=== PATIENT | female | born 1945 | race Caucasian/White ===

== ENCOUNTER 2023-12-08 22:16 | Inpatient (IN) | payer MEDICARE, SELFPAY ==
[2023-12-08] VITALS (7 sets, daily range): BP systolic 90–134; BP diastolic 30–75; BMI 22.1; BMI 22.9
[2023-12-08 16:12] LABS: % Basophils 1.3 % (0-2); % Eosinophils 7.2 % (0-6); % Immature Granulocytes 0.5 % (0-0.5); % Lymphocytes 29.4 % (20.5-51.1); % Monocytes 9.1 % (1.7-9.3); % Neutrophils 52.5 % (42.2-75.2); Absolute Basophils 0.1 10^3/uL (0-0.2); Absolute Eosinophils 0.7 10^3/uL (0-0.7); Absolute Immature Granulocytes 0.1 10^3/uL (0-0.05); Absolute Lymphocytes 2.8 10^3/uL (1.2-3.4); Absolute Monocytes 0.9 10^3/uL (0.1-0.6); Hematocrit 28.4 % (37.0-47.0); Hemoglobin 9.2 g/dL (12.0-16.0); Mean Corp Hgb Conc. 32.4 g/dL (33.0-37.0); Mean Corpuscular Hgb 28.5 pg (27.0-31.0); Mean Corpuscular Volume 87.9 fL (81.0-99.0); Mean Platelet Volume 10.9 fL (7.4-10.4); Nucleated Red Blood Cells % 0 %; Platelet Count 275 10^3/uL (130-400); Red Blood Cell Count 3.23 10^6/uL (4.20-5.40); White Blood Cell Count 9.4 10^3/uL (4.8-10.8)
[2023-12-08 16:26] LABS: ALT (SGPT) 14 U/L (0-35); AST (SGOT) 19 U/L (14-36); Albumin 3.9 g/dl (3.5-5.0); Alkaline Phosphatase 81 U/L (38-126); Blood Urea Nitrogen 72 mg/dl (7-17); Calcium 10.4 mg/dl (8.4-10.2); Carbon Dioxide 20 mmol/L (22-30); Chloride 107 mmol/L (98-107); Estimated Creatinine Clearance 18 ml/min; Glucose 250 mg/dl (70-99); Potassium 4.8 mmol/L (3.5-5.1); Sodium 139 mmol/L (135-145); Total Bilirubin 0.3 mg/dl (0.2-1.3); Total Protein 6.7 g/dl (6.3-8.2); eGFR 25.41
[2023-12-08 21:00] LABS: Urine Albumin 1+ (Neg - Trace); Urine Bilirubin Negative (Negative); Urine Character Very Cloudy (Clear); Urine Color Yellow; Urine Glucose Negative (Negative); Urine Ketone Negative (Negative); Urine Leukocyte 2+ (Negative); Urine Nitrite Positive (Negative); Urine Occult Blood 2+ (Negative); Urine Urobilinogen Negative (Neg - 1+)
[2023-12-08 21:06] LABS: Urine Bacteria Many (Negative); Urine Red Blood Cell 0-2 /HPF (0-2); Urine White Cell 30-40 /HPF (0-5)
--- NOTE | 2023-12-08 21:22 | ED.GENMED ---
History of Present Illness
General
Chief Complaint: Abnormal Lab Value
Time Seen by Provider: 12/08/23 18:16
Travel History
Have you had any contact with someone who has COVID-19?: No
Do you have any symptoms of coronavirus? Fever > 100 degrees, chills, cough, shortness of breath, sore throat, loss of taste or smell, muscle aches, or headache?: No
History of Present Illness
History of Present Illness:
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 Patient denies fever, chills, abdominal pain, dysuria, or hematuria. Patient states that all of her specialists are at [place].
Phy Exam
Physical Exam
Physical Exam:
General: Alert, no acute distress
Head: NCAT
Eyes: clear conjunctiva
Neck: supple
Cardiac: regular rate and rhythm, no murmur
Lungs: clear to auscultation bilaterally. No wheezes, rales, or rhonchi. Speaking full unlabored sentences. No respiratory distress.
Abdomen: soft, nondistended nontender. No rebound or guarding.
MSK: no lower extremity edema bilaterally. No deformity
Skin: warm, dry
Neuro: Alert no focal deficits
Course
Orders/Labs/Results
Orders:
Orders
12/08/23 15:57
Complete Blood Count/With Diff Urgent
Comprehensive Metabolic Panel Urgent
12/08/23 18:38
US Renal With Bladder Urgent
Comment:
Reason For Exam: ar
12/08/23 20:53
UA Reflex to Culture [Urinalysis Reflex To Culture] Urgent
Date Specimen was Collected: 12/08/23
Time Specimen was Collected: 20:33
Urine Microscopic Reflex Cult Urgent
Urine Culture Urgent
CHIDI Source: U
Specimen Description:
Date Specimen was Collected: 12/08/23
Time Specimen was Collected: 20:33
12/08/23 21:22
Ertapenem [Invanz] 500 mg 0.9% Sodium Chloride [Nss] 50 ml IV NOW
Abnormal Lab Results
12/08/23 12/08/23
15:57 20:53
RBC 3.23 L 10^6/uL
(4.20-5.40)
Hgb 9.2 L g/dL
(12.0-16.0)
Hct 28.4 L %
(37.0-47.0)
MCHC 32.4 L g/dL
(33.0-37.0)
RDW 16.0 H %
(11.5-14.5)
MPV 10.9 H fL
(7.4-10.4)
Abs Immat Gran (auto) 0.1 H 10^3/uL
(0-0.05)
Absolute Monos (auto) 0.9 H 10^3/uL
(0.1-0.6)
Eosinophils % 7.2 H %
(0-6)
Carbon Dioxide 20 L mmol/L
(22-30)
BUN 72 H mg/dl
(7-17)
Creatinine 2.0 H mg/dL
(0.6-1.0)
Glucose 250 H mg/dl
(70-99)
Calcium 10.4 H mg/dl
(8.4-10.2)
Ur Occult Blood Reflex 2+ A
(Negative)
Urine Nitrite (Reflex) Positive A
(Negative)
Leukocyte Esterase Rfl 2+ A
(Negative)
Urine WBC (Reflex) 30-40 A /HPF
(0-5)
Urine Bacteria (Reflex) Many A
(Negative)
Urine Albumin (Reflex) 1+ A
(Neg - Trace)
12/08/23 15:57
12/08/23 15:57
Vital Signs
Initial and Last Documented VS:
Initial Vital Signs
Temp Pulse Resp BP Pulse Ox
98.2 F 65 16 96/44 98
12/08/23 15:45 12/08/23 15:45 12/08/23 15:45 12/08/23 15:45 12/08/23 15:45
Last Documented Vital Signs
Temp Pulse Resp BP Pulse Ox
98.2 F 76 20 104/51 94
12/08/23 15:45 12/08/23 21:00 12/08/23 21:00 12/08/23 21:00 12/08/23 21:00
Comment
Comment:
Patient presents to the Emergency Department with ___AKI
Number and Complexity of Problems Addressed at the Encounter
� Chronic conditions affecting care:
� Acute Exacerbation and/or Progression of Chronic Illness:
� Differential Diagnosis includes: UTI, dehydration, CKD
Amount and/or Complexity of Data to be Reviewed and Analyzed
� I performed an independent evaluation of and my interpretation is:
EKG:
CT:
Xrays:
Laboratory Studies: UA consistent with UTI. Creatinine 2, baseline 1.1. Electrolytes within normal limits.
Other:
� Review of other/old records reveals: Patient was admitted in May 2023 for AR was found to have a urinary tract infection that grew out ESBL Klebsiella. Patient has multiple allergies. Patient was seen by infectious disease at that time and
treated with ertapenem.
� Clinical information was obtained by an independent historian:
� Prescriptions/Medications Considered but not given:
� Further testing considered but not performed:
Risk of Complications and/or Morbidity or Mortality of Patient Management
� Social Determinants of health affecting care:
� Discussion with other providers (PCP, Hospitalists, Consultants, etc):
� Escalation of care including admission/observation vs risk of discharge considered: 78-year-old female presenting with abnormal labs. Workup shows UTI and AR. Due to history of ESBL and multiple allergies, ordered ertapenem which is been
sensitive in the past. Discussed with hospitalist who accepts for admission
*Critical Care Note
Total Time (30-74mins, 75-104mins- exclusive of procedures): Not Applicable
ED Attending Note
-
Portions of this chart may have been created with voice recognition software.� Occasional wrong word or��sound alike� substitutions may have occurred due to the inherent limitations of voice recognition software.
Discharge Plan
Departure
Patient Disposition: Admit
Date of Disposition: 12/08/23
Time of Disposition: 21:29
Presentation/result/management discussed w/ accepting MD/DO: Hospitalist
Discharge Problem:
Acute UTI, AR (acute kidney injury)
Prescriptions:
No Action
atorvastatin [Lipitor] 40 mg Tablet
40 mg PO DAILY
clopidogrel [Plavix] 75 mg Tablet
75 mg PO DAILY
divalproex 500 mg Tablet,Delayed Release (Dr/Ec)
500 mg PO QPM
aspirin 81 mg Tablet,Delayed Release (Dr/Ec)
81 mg PO DAILY
carvedilol [Coreg] 3.125 mg Tablet
3.125 mg PO DAILY
metformin 1,000 mg Tablet
1,000 mg PO BID
vitamin B complex Tablet
1 tab PO DAILY
folic acid 1 mg Tablet
1 mg PO HS
mirtazapine 15 mg Tablet
15 mg PO HS
levothyroxine [Synthroid] 112 mcg Tablet
112 mcg PO DAILY
duloxetine [Cymbalta] 60 mg Capsule,Delayed Release(Dr/Ec)
60 mg PO DAILY
magnesium oxide 400 mg magnesium Tablet
400 mg PO DAILY
nifedipine 30 mg Tablet Extended Release
30 mg PO DAILY Qty: 30 0RF
tramadol 50 mg tablet
50 mg PO BID PRN (Reason: moderate pain)
Patient Comments:
12/08/2023: last filled 12/03/23, 14 tabs for 7 days from [facility]
tolterodine 2 mg tablet
2 mg PO HS
lisinopril 20 mg Tablet
20 mg PO DAILY
furosemide 20 mg Tablet
20 mg PO DAILY
Referrals:
Mitchell Hahn MD [Primary Care Provider] -
Interventions
Interventions:
*Risk Screen - Suicide Last Done: 12/08/23 15:45
*General Assessment Last Done: 12/08/23 18:36
*Neglect/Abuse Screening Last Done: 12/08/23 15:45
ED- Fall Risk Assessment Last Done: 12/08/23 15:45
*ED COVID-19 Vaccine History Last Done: 12/08/23 15:45
Discharge Date and Time
Print Language: CITIZEN OF [place]
--- NOTE | 2023-12-08 22:02 | HPS.HSE ---
Family Physician
-
Family Physician: Mitchell Hahn
Chief Complaint
-
abnormal labs
History of Present Illness
78-year-old female past medical history of CAD with stents, left bundle branch block, paroxysmal atrial fibrillation, CVA, trigeminal neuralgia, sleep apnea, hypertension, hypothyroidism, hyperlipidemia, type 2 diabetes, depression, ESBL UTI, left
shoulder replacement complicated by septic shoulder, subdural hematoma, overactive bladder, C. difficile colitis, chronic pain/fibromyalgia, restless leg syndrome, presenting for abnormal lab work.
Patient started seeing a nephrology at [facility] for the first time last week for CKD. During that visit he discontinued for nephrotoxic medications including Lasix, lisinopril and metformin. He ordered lab work the results which came back which
supposedly showed worsening in the kidney function from lab work from a week prior and patient was told to come to the emergency room. Denies any new medications recently.
Patient also had urinalysis performed as outpatient which she periodically gets done given her history of frequent UTIs. She is urinating normally. She denies any urinary symptoms worse than baseline although she does have overactive bladder which
is stable. She denies any fevers or chills or abdominal pain or nausea or vomiting or confusion. Denies any chest pain or shortness of breath. She has lost 100 pounds in the past few years which is intentional. Denies any lower extreme edema.
Patient is interesting in transitioning care from [facility] to [facility].
Medical History
Past Medical History
Past Medical History: Reports Other (CAD with stents, left bundle branch block, paroxysmal atrial fibrillation, CVA, trigeminal neuralgia, sleep apnea, hypertension, hypothyroidism, hyperlipidemia, type 2 diabetes, depression, ESBL UTI, left
shoulder replacement complicated by septic shoulder, subdural hematoma, overactive bladder, C. )
Past Surgical History: Reports None
Social History
Tobacco: Non-smoker
Alcohol: None
Drug: None
Family History
Family History: Not pertinent
Allergies / Home Medications
Allergies reflects when Allergies were last updated in [employer].
Home Medications with original date entered in [employer]
Allergy/Medication List:
Allergies
Allergy/AdvReac Type Severity Reaction Status Date / Time
cephalexin Allergy Unknown Verified 12/08/23 15:48
ciprofloxacin Allergy Hives Verified 12/08/23 15:48
formaldehyde Allergy Shortness Verified 12/08/23 15:48
of Breath
Iodinated Contrast Media Allergy Hives Verified 12/08/23 15:48
metoprolol Allergy Itching Verified 12/08/23 15:48
Penicillins Allergy Unknown Verified 12/08/23 15:48
piperacillin [From Zosyn] Allergy Unknown Verified 12/08/23 15:48
pregabalin [From Lyrica] Allergy Hives Verified 12/08/23 15:48
shellfish derived Allergy Unknown Verified 12/08/23 15:48
[id number]-[id number] Reductase Allergy Unknown Verified 12/08/23 15:48
Inhibitor
Sulfa (Sulfonamide Allergy Unknown Verified 12/08/23 15:48
Antibiotics)
tazobactam [From Zosyn] Allergy Unknown Verified 12/08/23 15:48
vancomycin Allergy Rash Verified 12/08/23 15:48
antibiotics Allergy Unknown Uncoded 12/08/23 15:48
Home Medications
aspirin 81 mg tablet,delayed release 81 mg PO DAILY Blood Clot Prevention/Tx 05/17/23
atorvastatin 40 mg tablet (Lipitor) 40 mg PO DAILY High Cholesterol 05/17/23
carvedilol 3.125 mg tablet (Coreg) 3.125 mg PO DAILY Heart Failure 05/17/23
clopidogrel 75 mg tablet (Plavix) 75 mg PO DAILY Blood Clot Prevention/Tx 05/17/23
divalproex 500 mg tablet,delayed release 500 mg PO QPM Neurological Condition 05/17/23
duloxetine 60 mg capsule,delayed release (Cymbalta) 60 mg PO DAILY Neurological Condition 05/17/23
folic acid 1 mg tablet 1 mg PO HS Supplement 05/17/23
levothyroxine 112 mcg tablet (Synthroid) 112 mcg PO DAILY Thyroid 05/17/23
magnesium oxide 400 mg PO DAILY Supplement 05/17/23
metformin 1,000 mg tablet 1,000 mg PO BID Diabetes 05/17/23
mirtazapine 15 mg tablet 15 mg PO HS Mental Health/Anxiety 05/17/23
vitamin B complex 1 tab PO DAILY Supplement 05/17/23
nifedipine 30 mg tablet,extended release 30 mg PO DAILY Blood pressure #30 tabs 05/22/23
furosemide 20 mg tablet 20 mg PO DAILY 12/08/23
lisinopril 20 mg tablet 20 mg PO DAILY 12/08/23
tolterodine 2 mg tablet 2 mg PO HS 12/08/23
tramadol 50 mg tablet 50 mg PO BID PRN moderate pain 12/08/23
Review of Systems
-
History Source: Patient
A 12 point ROS was completed and negative except as noted: Yes
Constitutional: Reports No Symptoms
EENT: Reports No Symptoms
Respiratory: Reports No Symptoms
Cardiac: Reports No Symptoms
Abdomen/GI: Reports No Symptoms
: Reports No Symptoms
Musculoskeletal: Reports No Symptoms
Skin: Reports No Symptoms
Neurological: Reports No Symptoms
Endocrine: Reports No Symptoms
Hematologic/Lymphatic: Reports No Symptoms
Psych: Reports No Symptoms
Physical Exam
Vital Signs
Vital Signs
Temp Pulse Resp BP Pulse Ox
98.2 F 76 25 104/51 96
12/08/23 15:45 12/08/23 21:30 12/08/23 21:30 12/08/23 21:00 12/08/23 21:30
Physical Exam
General: Well Developed, Well Nourished and No Apparent Distress
HEENT: NormoCephalic, Moist mucous membranes and Atraumatic
Respiratory: Clear
Cardiac: S1/S2 and Regular Rhythm; No Murmur or Rub
GI: Soft, Non Tender, Non Distended and Normal Bowel Sounds; No Organomegaly
Rectal: Deferred by Provider
Musculoskeletal: No Clubbing, No Cyanosis and No Edema
Skin: No Rash
Neuro: Nonfocal/grossly intact
Laboratory Results
-
12/08/23 15:57
12/08/23 15:57
Laboratory Results
Total Bilirubin 0.3 mg/dl (0.2-1.3) 12/08/23 15:57
AST 19 U/L (14-36) 12/08/23 15:57
ALT 14 U/L (0-35) 12/08/23 15:57
Alkaline Phosphatase 81 U/L (38-126) 12/08/23 15:57
Data Reviewed
-
Lab Data: Labs Reviewed by me
Old Records: Reviewed
Impression/Plan
-
IMPRESSION:
PLAN:
#AR on CKD 3
-Elevation of BUN suggesting prerenal etiology, although history does not suggest prerenal etiology
-Renal ultrasound shows no evidence of renal calculus, hydronephrosis, there is under distended urinary bladder low-level echoes which is nonspecific
-Urinalysis showing albuminuria
-Continue to hold Lasix, lisinopril
-IV fluids
-Check urine protein to creatinine ratio
-Obtain records from [facility] nephrology
-Nephrology consultation if renal function does not improve with fluids
# Asymptomatic urinary tract infection
#History of ESBL Klebsiella UTI
-UA showing very cloudy urine, positive nitrates, 1+ leukocyte esterase, 30-40 WBC
-Ertapenem started
CAD status post stents
-Continue aspirin, Plavix
-Continue Coreg
Paroxysmal atrial fibrillation as per notes
-Not on anticoagulation
-Follows with cardiology diabetes
Left bundle branch block
Hypothyroidism
-Continue levothyroxine
Hyperlipidemia
-Continue statin
Type 2 diabetes
-Hold metformin
Essential hypertension
-Continue nifedipine
Sleep apnea
-Not on CPAP
Multiple left shoulder surgeries for septic left shoulder hardware removal
History of subdural hematoma
Trigeminal neuralgia
-Continue Depakote
History of CVA
Overactive bladder
-Continue tolterodine
History of C. difficile colitis
Chronic pain/fibromyalgia/depression
-Continue duloxetine, mirtazapine
-Continue tramadol
Restless leg syndrome
Full code
DVT prophylaxis�heparin
Regular diet
[2023-12-08] MEDS: INVANZ 55 MG IV (23:01)
--- NOTE | 2023-12-09 01:03 | W.PN.UPDATE ---
Update Note
Progress Note Update
Creatinine clearance 18, Ertapenem dose changed per Pharmacy recommendation.
[2023-12-09] MEDS: DETROL 2 MG PO ×2 (01:20→22:00)
[2023-12-09] MEDS: REMERON 15 MG PO ×2 (01:20→22:00)
[2023-12-09] MEDS: NSS 1000 IV ×3 (01:20→22:10)
[2023-12-09] MEDS: FOLVITE 1 MG PO ×2 (01:20→22:02)
[2023-12-09 04:12] LABS: Glucose - Point of Care 245 mg/dl (70-99)
[2023-12-09 04:40] VITALS: BMI 22.9
[2023-12-09] MEDS: SYNTHROID 112 MCG PO (06:15)
[2023-12-09 06:23] LABS: % Eosinophils 6.7 % (0-6); % Immature Granulocytes 0.3 % (0-0.5); % Lymphocytes 25.5 % (20.5-51.1); % Monocytes 10.8 % (1.7-9.3); % Neutrophils 55.7 % (42.2-75.2); Absolute Basophils 0.1 10^3/uL (0-0.2); Absolute Eosinophils 0.6 10^3/uL (0-0.7); Absolute Lymphocytes 2.3 10^3/uL (1.2-3.4); Absolute Neutrophils 5.1 10^3/uL (1.4-6.5); Hematocrit 28.3 % (37.0-47.0); Hemoglobin 8.9 g/dL (12.0-16.0); Mean Corp Hgb Conc. 31.4 g/dL (33.0-37.0); Mean Corpuscular Hgb 27.8 pg (27.0-31.0); Mean Corpuscular Volume 88.4 fL (81.0-99.0); Mean Platelet Volume 11.6 fL (7.4-10.4); Nucleated Red Blood Cells % 0 %; Platelet Count 238 10^3/uL (130-400); Red Cell Dist. Width 15.8 % (11.5-14.5); White Blood Cell Count 9.1 10^3/uL (4.8-10.8)
[2023-12-09 06:57] LABS: ALT (SGPT) 14 U/L (0-35); AST (SGOT) 19 U/L (14-36); Albumin 3.2 g/dl (3.5-5.0); Alkaline Phosphatase 89 U/L (38-126); Blood Urea Nitrogen 80 mg/dl (7-17); Calcium 9.4 mg/dl (8.4-10.2); Carbon Dioxide 20 mmol/L (22-30); Chloride 110 mmol/L (98-107); Estimated Creatinine Clearance 21 ml/min; Glucose 224 mg/dl (70-99); Potassium 4.4 mmol/L (3.5-5.1); Sodium 137 mmol/L (135-145); Total Bilirubin 0.2 mg/dl (0.2-1.3); Total Protein 5.9 g/dl (6.3-8.2); eGFR 30.89
[2023-12-09 07:00] VITALS: BP 123/69
[2023-12-09 07:30] LABS: Hepatitis C Antibody Negative (Negative)
[2023-12-09 08:38] LABS: Glucose - Point of Care 277 mg/dl (70-99)
[2023-12-09] MEDS: NOVOLOG FLEXPEN-LOW RESISTANCE 3 UNITS SC ×2 (09:07→12:41)
[2023-12-09] MEDS: MAGNESIUM OXIDE 500 MG PO (09:08)
[2023-12-09] MEDS: ASPIR LOW (ENTERIC COATED) 81 MG PO (09:08)
[2023-12-09] MEDS: PROCARDIA XL (EXTENDED RELEASE) 30 MG PO (09:08)
[2023-12-09] MEDS: LIPITOR 40 MG PO (09:08)
[2023-12-09] MEDS: CYMBALTA DELAYED RELEASE 60 MG PO (09:09)
[2023-12-09] MEDS: B COMPLEX w/VITAMIN C 1 CAPLET PO (09:09)
[2023-12-09] MEDS: COREG 3.125 MG PO (09:09)
[2023-12-09] MEDS: PLAVIX 75 MG PO (09:09)
[2023-12-09] MEDS: HEPARIN 5000 UNITS SC ×2 (09:10→22:02)
[2023-12-09 09:15] LABS: Glycohemoglobin (HgbA1c) 7.4 % (4.0-5.6)
[2023-12-09 12:18] LABS: Glucose - Point of Care 297 mg/dl (70-99)
--- NOTE | 2023-12-09 13:06 | W.PN.HOSP.TC ---
Today's Communication/Plan
-
continue IVF
continue current abx pending C&S
nephrology consult
Assessment / Plan
Assessment / Plan
#AR on CKD 3
-Elevation of BUN suggesting prerenal etiology, although history does not suggest prerenal etiology
BUN/Creat: 72/2.0-->80/1.7
-Renal ultrasound shows no evidence of renal calculus, hydronephrosis, there is under distended urinary bladder low-level echoes which is nonspecific
-Urinalysis showing albuminuria
-Continue to hold Lasix, lisinopril
-IV fluids to continue
-Check urine protein to creatinine ratio
-Obtain records from [facility] neph[facility]
-Nephrology consultation, pt states wishes to transfer care to nephrology from [facility]
# Asymptomatic urinary tract infection
#History of ESBL Klebsiella UTI
-UA showing very cloudy urine, positive nitrates, 1+ leukocyte esterase, 30-40 WBC
Ur cx pending
-Ertapenem started
CAD status post stents
-Continue aspirin, Plavix
-Continue Coreg
Paroxysmal atrial fibrillation as per notes
-Not on anticoagulation
-Follows with cardiology diabetes
Left bundle branch block
Hypothyroidism
-Continue levothyroxine
Hyperlipidemia
-Continue statin
Type 2 diabetes
-Hold metformin
Essential hypertension
-Continue nifedipine
Sleep apnea
-Not on CPAP
Multiple left shoulder surgeries for septic left shoulder hardware removal
History of subdural hematoma
Trigeminal neuralgia
-Continue Depakote
History of CVA
Overactive bladder
-Continue tolterodine
History of C. difficile colitis
Chronic pain/fibromyalgia/depression
-Continue duloxetine, mirtazapine
-Continue tramadol
Restless leg syndrome
Full code
DVT prophylaxis�heparin
Regular diet
Anticipated Discharge: > 48 hours
Subjective/Interval History
-
Date of Service: December 09, 2023
Awake, alert, conversant
Objective Data
-
Labs:
Laboratory Results
12/09/23
06:00
WBC 9.1
Hgb 8.9 L
Hct 28.3 L
Plt Count 238
Sodium 137
Potassium 4.4
Chloride 110 H
Carbon Dioxide 20 L
BUN 80 H
Creatinine 1.7 H
Glucose 224 H
Calcium 9.4
Total Bilirubin 0.2
AST 19
ALT 14
Alkaline Phosphatase 89
Vital Signs:
Vital Signs
Temp Pulse Resp BP Pulse Ox
97.5 F 76 17 123/69 98
12/09/23 07:00 12/09/23 07:00 12/09/23 07:00 12/09/23 07:00 12/09/23 07:00
Review of Systems
-
History Source: Patient and Coordinated Provider
Constitutional: Denies Fever
EENT: Denies No Symptoms Reported
Respiratory: Denies No Symptoms or Trouble Breathing
Cardiac: Reports No Symptoms
Abdomen/GI: Reports No Symptoms
Musculoskeletal: Reports No Symptoms
Physical Exam
-
General: Well Developed, Well Nourished, No Apparent Distress and Appears Chronically Ill
HEENT: Normocephalic, Atraumatic and Moist Mucous Membranes
Respiratory: Clear to Auscultation; Negative Wheezes, Rales or Rhonchi
Cardiac: Regular Rhythm and S1/S2
GI: Soft, Nontender and Nondistended
Musculoskeletal: No Clubbing, No Cyanosis and No Edema
Skin: Warm and Dry
--- NOTE | 2023-12-09 13:12 | W.CON.NEPH ---
Addendum entered and electronically signed by Ren Elias DO 12/09/23 13:57:
Narrow anion gap metabolic acidosis:
Check SPEP in setting of CKD anemia abnormal GFR
Will provide sodium bicarbonate tablets if exacerbates
Original Note:
Consultation
-
Date/Time Consultation Requested: 12/09/2023 1:00
Date/Time Consultation Performed: 12/09/2023 115 PM
Requesting Provider: Jose Manuel
Performing Provider: Dr. Elias
Reason for Consultation: AR
Medical History
-
Chief Complaint: Acute kidney and
History of Present Illness:
The patient is a 78-year-old female with a past medical history of CKD as noted by past creatinine level of 1.1 as of May 2023. She has a history of hypertension and is maintained on the combination of carvedilol lisinopril and nifedipine. She
has a past medical history of CAD with stents, left bundle branch block, paroxysmal atrial fibrillation, CVA, trigeminal neuralgia, sleep apnea, hypertension, hypothyroidism, hyperlipidemia, type 2 diabetes, depression, ESBL UTI, left shoulder
replacement complicated by septic shoulder, subdural hematoma, overactive bladder, C. difficile colitis, chronic pain/fibromyalgia, restless leg syndrome, presenting for abnormal lab work.
Patient started seeing a nephrology at [facility] for the first time last week for CKD. During that visit she discontinued medications including Lasix, lisinopril and metformin. He ordered lab work the results which came back which supposedly
showed worsening in the kidney function from lab work from a week prior and patient was told to come to the emergency room. Denies any new medications recently. Her creatinine on admission was 2 off of her previous baseline of 1.1 from May 22,
2022 and nephrology was asked to see then patient.
Patient also had urinalysis performed as outpatient which she periodically gets done given her history of frequent UTIs. She is urinating normally. She denies any urinary symptoms worse than baseline although she does have overactive bladder which
is stable. She denies any fevers or chills or abdominal pain or nausea or vomiting or confusion. Denies any chest pain or shortness of breath. She has lost 100 pounds in the past few years which is intentional. Denies any lower extreme edema.
Past Medical History
(CAD with stents, left bundle branch block, paroxysmal atrial fibrillation, CVA, trigeminal neuralgia, sleep apnea, hypertension, hypothyroidism, hyperlipidemia, type 2 diabetes, depression, ESBL UTI, left shoulder replacement complicated by septic
shoulder, subdural hematoma, overactive bladder, C. )
Social History
Tobacco: Former Smoker
Alcohol: None
Family History
no ckd
Allergies / Home Medications
Allergy/AdvReac Type Severity Reaction Status Date / Time
cephalexin Allergy Unknown Verified 12/08/23 15:48
ciprofloxacin Allergy Hives Verified 12/08/23 15:48
formaldehyde Allergy Shortness Verified 12/08/23 15:48
of Breath
Iodinated Contrast Media Allergy Hives Verified 12/08/23 15:48
metoprolol Allergy Itching Verified 12/08/23 15:48
Penicillins Allergy Unknown Verified 12/08/23 15:48
piperacillin [From Zosyn] Allergy Unknown Verified 12/08/23 15:48
pregabalin [From Lyrica] Allergy Hives Verified 12/08/23 15:48
shellfish derived Allergy Unknown Verified 12/08/23 15:48
Nwzypng-[id number]-[id number] Reductase Allergy Unknown Verified 12/08/23 15:48
Inhibitor
Sulfa (Sulfonamide Allergy Unknown Verified 12/08/23 15:48
Antibiotics)
tazobactam [From Zosyn] Allergy Unknown Verified 12/08/23 15:48
vancomycin Allergy Rash Verified 12/08/23 15:48
antibiotics Allergy Unknown Uncoded 12/08/23 15:48
�Medication �Instructions �Recorded �Confirmed �Type
aspirin 81 mg tablet,delayed 81 mg PO DAILY Blood Clot 05/17/23 12/08/23 History
release Prevention/Tx
atorvastatin 40 mg tablet (Lipitor) 40 mg PO DAILY High Cholesterol 05/17/23 12/08/23 History
carvedilol 3.125 mg tablet (Coreg) 3.125 mg PO DAILY Heart Failure 05/17/23 12/08/23 History
clopidogrel 75 mg tablet (Plavix) 75 mg PO DAILY Blood Clot 05/17/23 12/08/23 History
Prevention/Tx
divalproex 500 mg tablet,delayed 500 mg PO QPM Neurological 05/17/23 12/08/23 History
release Condition
duloxetine 60 mg capsule,delayed 60 mg PO DAILY Neurological 05/17/23 12/08/23 History
release (Cymbalta) Condition
folic acid 1 mg tablet 1 mg PO HS Supplement 05/17/23 12/08/23 History
levothyroxine 112 mcg tablet 112 mcg PO DAILY Thyroid 05/17/23 12/08/23 History
(Synthroid)
magnesium oxide 400 mg PO DAILY Supplement 05/17/23 12/08/23 History
metformin 1,000 mg tablet 1,000 mg PO BID Diabetes 05/17/23 12/08/23 History
mirtazapine 15 mg tablet 15 mg PO HS Mental Health/Anxiety 05/17/23 12/08/23 History
vitamin B complex 1 tab PO DAILY Supplement 05/17/23 12/08/23 History
nifedipine 30 mg tablet,extended 30 mg PO DAILY Blood pressure #30 05/22/23 12/08/23 Rx
release tabs
furosemide 20 mg tablet 20 mg PO DAILY 12/08/23 12/08/23 History
lisinopril 20 mg tablet 20 mg PO DAILY Blood Pressure 12/08/23 12/08/23 History
tolterodine 2 mg tablet 2 mg PO HS Urinary Issue 12/08/23 12/08/23 History
tramadol 50 mg tablet 50 mg PO BID PRN moderate pain 12/08/23 12/08/23 History
Review of Systems
-
History Source: Patient
All other systems: Negative unless noted
Constitutional: Weight Loss (100 pounds over past year on purpose)
EENT: Other (Unilateral blindness from diabetic retinopathy)
Respiratory: No Symptoms
Cardiac: No Symptoms
Abdomen/GI: No Symptoms
: Frequency, Difficulty Voiding, Urgency and Other (Chronic bladder dysfunction)
Musculoskeletal: Edema (Right lower extremity)
Skin: Other (Ecchymosis along upper extremity)
Neurological: No Symptoms
Endocrine: No Symptoms
Hematologic/Lymphatic: Bruising
Physical Exam
Vital Signs
Vital Signs
Temp Pulse Resp BP Pulse Ox
97.5 F 76 17 123/69 98
12/09/23 07:00 12/09/23 07:00 12/09/23 07:00 12/09/23 07:00 12/09/23 07:00
Lab Results
12/09/23 06:00
12/09/23 06:00
WBC 9.1 10^3/uL (4.8-10.8) 12/09/23 06:00
RBC 3.20 10^6/uL (4.20-5.40) L 12/09/23 06:00
Hgb 8.9 g/dL (12.0-16.0) L 12/09/23 06:00
Hct 28.3 % (37.0-47.0) L 12/09/23 06:00
Plt Count 238 10^3/uL (130-400) 12/09/23 06:00
Sodium 137 mmol/L (135-145) 12/09/23 06:00
Potassium 4.4 mmol/L (3.5-5.1) 12/09/23 06:00
Chloride 110 mmol/L (98-107) H 12/09/23 06:00
Carbon Dioxide 20 mmol/L (22-30) L 12/09/23 06:00
BUN 80 mg/dl (7-17) H 12/09/23 06:00
Creatinine 1.7 mg/dL (0.6-1.0) H 12/09/23 06:00
eGFR 30.89 12/09/23 06:00
Glucose 224 mg/dl (70-99) H 12/09/23 06:00
Calcium 9.4 mg/dl (8.4-10.2) 12/09/23 06:00
Albumin 3.2 g/dl (3.5-5.0) L 12/09/23 06:00
Physical Exam
General: AOx3, Nontoxic , NAD
HEENT: PERRL, EOMI, Anicteric, Conjunctivae Clear, Ear/Nose Intact, Hearing Normal, Oropharynx Clear/Moist, Dentition Intact, Facial Symmetry, Neck Supple, Neck: Trachea Midline, No JVD and No Thyromegaly, no Bruits
Respiratory: Clear to auscultation bilaterally with normal lung exersion and decreased breathsounds to bases
Cardiac: S1/S2 and Regular Rate/Rhythm 3/6SEM
Breast: Deferred by me
Abdomen: Soft, Nontender, Nondistended, Normal Bowel Sounds and No Hepatosplenomegaly
Rectal: Deferred by Provider
Genito-urinary: No Costovertebral Tenderness
Extremities: No Clubbing, No Cyanosis and right leg + edema
Skin: No Rash or open lesions but ecchymosis on forearm
Neuro: Nonfocal/Grossly Intact, CN II-XII (Intact) and Strength (Musculoskeletal exam 5 out of 5 both upper and lower extremities)
Hematologic/Lymphatic: No Cervical Lymphadenopathy, No Submandibular Lymphadenopathy and No Supraclavicular Lymphadenopathy
Psych: Mood/afflect pleasant, Insight/judgement good and Appropriate
Vascular: plus 1 pedal and radial pulses
Data Reviewed
-
Radiology: Report Reviewed by me (Kidney ultrasound report reviewed increase echogenicity no hydronephrosis)
Labs: Labs Reviewed by me (BMP CBC and urinalysis)
Old Records: Reviewed (Reviewed creatinine from 05/22/2023 1.1)
Assessment/Plan
-
Impression:
Acute kidney injury
CKD (1.1)
History of recurrent UTI (ESBL)
Coronary artery disease with previous stenting procedure
Paroxysmal atrial fibrillation
History of CVA
Hypothyroidism
Diabetes
History of subdural hematoma
Trigeminal neuralgia
Multiple left shoulder surgeries with septic left shoulder hardware removal
Bladder dysfunction
Chronic pain/ fibromyalgia
Depressed
Restless leg syndrome
Anemia
Plan:
AR:
May have been precipitated by prerenal stimulus given hypotension on admission, follow up FeNa
Lisinopril and Lasix recently as outpatient by [facility]
Urinalysis notes 1+ albumin 2+ blood possibly consistent with ongoing diabetic nephropathy and/or UTI
Kidney ultrasound notes chronicity with increased renal echogenicity but no evidence of hydronephrosis
Creatinine improving with NSS which will be continued
Currently on ertapenem for suspected ESBL renally adjusted dosage
follow up bladder scan given history of bladder dysfunction
Anemia:
Check iron stores
Heme check stool
Check SPEP
--- NOTE | 2023-12-09 13:31 | CM ---
Met with pt and her at bedside
Pt lives with her and daughter in a 2 story home. Pt has a stair glide to access 2nd floor
Pt reports is does not ambulate well and uses wheel chair often. Min-mod assist with ADL's
DME - includes stair glide, purewick, wheel chair, cane, rolling walker, shower chair
SNF - in past has been at [facility]
HH - Has used [facility] in past
Has ride at d/c
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
Pharm - [facility]
PT/OT pending
Plan - TBD - anticipate SNF vs Home with HH
[2023-12-09 15:00] VITALS: BP 114/70
[2023-12-09 16:44] LABS: Glucose - Point of Care 206 mg/dl (70-99)
[2023-12-09] MEDS: DEPAKOTE (12 HR RELEASE) 500 MG PO (17:53)
[2023-12-09] MEDS: NOVOLOG FLEXPEN-LOW RESISTANCE 2 UNITS SC (17:54)
[2023-12-09 21:44] LABS: Glucose - Point of Care 250 mg/dl (70-99)
[2023-12-09] MEDS: INVANZ 55 MG IV (22:00)
[2023-12-09 23:34] VITALS: BP 115/61
[2023-12-10 00:12] LABS: Urine Sodium 100 mmol/L (30-90)
[2023-12-10 01:40] LABS: Urine Protein 22 mg/dl
[2023-12-10 02:35] LABS: Protein/creatinine Ratio 0.7
[2023-12-10 06:00] VITALS: BMI 23.0
[2023-12-10 06:11] LABS: Lactic Acid 0.7 mmol/L (0.7-2.0)
[2023-12-10 06:24] LABS: % Basophils 1.2 % (0-2); % Eosinophils 7.2 % (0-6); % Immature Granulocytes 0.4 % (0-0.5); % Monocytes 9.5 % (1.7-9.3); % Neutrophils 49.7 % (42.2-75.2); Absolute Basophils 0.1 10^3/uL (0-0.2); Absolute Eosinophils 0.5 10^3/uL (0-0.7); Absolute Lymphocytes 2.4 10^3/uL (1.2-3.4); Absolute Monocytes 0.7 10^3/uL (0.1-0.6); Absolute Neutrophils 3.7 10^3/uL (1.4-6.5); Hematocrit 26.7 % (37.0-47.0); Hemoglobin 8.6 g/dL (12.0-16.0); Mean Corp Hgb Conc. 32.2 g/dL (33.0-37.0); Mean Corpuscular Hgb 28.1 pg (27.0-31.0); Mean Corpuscular Volume 87.3 fL (81.0-99.0); Mean Platelet Volume 11.1 fL (7.4-10.4); Nucleated Red Blood Cells % 0 %; Platelet Count 223 10^3/uL (130-400); Red Blood Cell Count 3.06 10^6/uL (4.20-5.40); White Blood Cell Count 7.5 10^3/uL (4.8-10.8)
[2023-12-10] MEDS: SYNTHROID 112 MCG PO (06:38)
[2023-12-10 07:00] VITALS: BP 133/56
[2023-12-10 07:16] LABS: Blood Urea Nitrogen 56 mg/dl (7-17); Calcium 8.8 mg/dl (8.4-10.2); Carbon Dioxide 21 mmol/L (22-30); Chloride 115 mmol/L (98-107); Estimated Creatinine Clearance 30 ml/min; Glucose 167 mg/dl (70-99); Iron 30 ug/dl (37-170); Potassium 4.8 mmol/L (3.5-5.1); Sodium 139 mmol/L (135-145); eGFR 46.91
[2023-12-10 07:24] LABS: Percent Saturation 11 % (20-50); Total Iron Binding Capacity 271 ug/dl (265-497)
[2023-12-10] MEDS: NSS 1000 IV ×2 (07:32→23:01)
[2023-12-10 07:39] LABS: Cortisol, Random 10.9 ug/dl
[2023-12-10 07:43] LABS: Ferritin 10.2 ng/ml (11.1-264.0)
[2023-12-10 08:31] LABS: Glucose - Point of Care 183 mg/dl (70-99)
[2023-12-10] MEDS: NOVOLOG FLEXPEN-LOW RESISTANCE 1 UNITS SC (08:32)
[2023-12-10] MEDS: B COMPLEX w/VITAMIN C 1 CAPLET PO (08:32)
[2023-12-10] MEDS: LIPITOR 40 MG PO (08:33)
[2023-12-10] MEDS: CYMBALTA DELAYED RELEASE 60 MG PO (08:33)
[2023-12-10] MEDS: PLAVIX 75 MG PO (08:33)
[2023-12-10] MEDS: ASPIR LOW (ENTERIC COATED) 81 MG PO (08:33)
[2023-12-10] MEDS: HEPARIN 5000 UNITS SC ×2 (08:33→23:05)
[2023-12-10] MEDS: MAGNESIUM OXIDE 500 MG PO (08:33)
[2023-12-10] MEDS: PROCARDIA XL (EXTENDED RELEASE) 30 MG PO (08:54)
[2023-12-10] MEDS: COREG 3.125 MG PO (08:55)
[2023-12-10 12:23] LABS: Glucose - Point of Care 243 mg/dl (70-99)
[2023-12-10] MEDS: NOVOLOG FLEXPEN-LOW RESISTANCE 2 UNITS SC (12:28)
--- NOTE | 2023-12-10 12:36 | W.PN.NEPH.PH ---
Today's Communication / Plan
-
wean off IVF
Assessment/Plan
-
Impression:
Acute kidney injury
CKD (1.1)
History of recurrent UTI (ESBL)
Coronary artery disease with previous stenting procedure
Paroxysmal atrial fibrillation
History of CVA
Hypothyroidism
Diabetes
History of subdural hematoma
Trigeminal neuralgia
Multiple left shoulder surgeries with septic left shoulder hardware removal
Bladder dysfunction
Chronic pain/ fibromyalgia
Depressed
Restless leg syndrome
Anemia
Plan:
AR:
May have been precipitated by prerenal stimulus given hypotension on admission,U na high with IVF
Lisinopril and Lasix held recently as outpatient by [place] nephrology
Urinalysis notes 1+ albumin 2+ blood possibly consistent with ongoing diabetic nephropathy and/or UTI
Kidney ultrasound notes chronicity with increased renal echogenicity but no evidence of hydronephrosis
Creatinine improving with NSS, cr down to 1.2, we can wean off IVF as long as po intake is adequate
Currently on ertapenem for suspected ESBL renally adjusted dosage for changing GFR
follow up bladder scan given history of bladder dysfunction, uses purewick nightly at home for overactive bladder
hb low but stable at 8.6, fe def noted, ferritin low , fe sat only 11%, paraprotein w/u pending
pt would like to follow Docs at
-
-
Date of Service: December 10, 2023
CC / HPI / ROS
-
Chief Complaint:
AR
History of Present Illness:
cr better at 1.2
BP stable, no fever
hb low but stable 8.6
Review of Systems:
no cp or sob
mild burning while urinating , on purewick-non oliguric
no fever
Labs
-
Labs:
WBC 7.5 10^3/uL (4.8-10.8) 12/10/23 05:52
RBC 3.06 10^6/uL (4.20-5.40) L 12/10/23 05:52
Hgb 8.6 g/dL (12.0-16.0) L 12/10/23 05:52
Hct 26.7 % (37.0-47.0) L 12/10/23 05:52
Plt Count 223 10^3/uL (130-400) 12/10/23 05:52
Sodium 139 mmol/L (135-145) 12/10/23 05:52
Potassium 4.8 mmol/L (3.5-5.1) 12/10/23 05:52
Chloride 115 mmol/L (98-107) H 12/10/23 05:52
Carbon Dioxide 21 mmol/L (22-30) L 12/10/23 05:52
BUN 56 mg/dl (7-17) H 12/10/23 05:52
Creatinine 1.2 mg/dL (0.6-1.0) H 12/10/23 05:52
eGFR 46.91 12/10/23 05:52
Glucose 167 mg/dl (70-99) H 12/10/23 05:52
Calcium 8.8 mg/dl (8.4-10.2) 12/10/23 05:52
Albumin 3.2 g/dl (3.5-5.0) L 12/09/23 06:00
Physical Exam
-
Vital Signs:
Vital Signs
Temp Pulse Resp BP Pulse Ox
98.1 F 72 17 115/61 97
12/10/23 07:00 12/10/23 08:55 12/10/23 07:00 12/10/23 08:55 12/10/23 07:00
Cardiovascular:: Regular rate and rhythm
Respiratory:: Bilateral: CTA
Lung Excursion:: Normal
Abdomen:: Nontender and Soft
Extremity Edema:: None: Bilateral:
[place] Catheter: No
[2023-12-10] MEDS: FERRLECIT 110 MG IV (13:27)
--- NOTE | 2023-12-10 14:18 | W.PN.HOSP.TC ---
Today's Communication/Plan
-
continue current Abx
follow labs
continue IVF
Assessment / Plan
Assessment / Plan
#AR on CKD 3
-Elevation of BUN suggesting prerenal etiology, although history does not suggest prerenal etiology, significantly improved
BUN/Creat: 72/2.0-->80/1.7-->56/1.2
-Renal ultrasound shows no evidence of renal calculus, hydronephrosis, there is under distended urinary bladder low-level echoes which is nonspecific
-Urinalysis showing albuminuria
-Continue to hold Lasix, lisinopril
-IV fluids to continue
NS at 50 cc/hr
-Nephrology consultation, pt states wishes to transfer care to nephrology from [place]
reviewed with Dr. Parisi, possible AR was caused by recurrent UTI
# Asymptomatic urinary tract infection
#History of ESBL Klebsiella UTI
-UA showing very cloudy urine, positive nitrates, 1+ leukocyte esterase, 30-40 WBC
Ur cx Gm neg bacilli, C&S pending
-Ertapenem started
-Renal US: No sonographically demonstrable renal calculus. No hydronephrosis.
Underdistended urinary bladder with low-level echoes. Nonspecific. Such findings are nonspecific, and may be associated with sediment/fine particulate matter, excessive amounts of crystals, infection, or hematuria. Recommend correlation with
urinalysis.
CAD status post stents
-Continue aspirin, Plavix
-Continue Coreg
Paroxysmal atrial fibrillation as per notes
-Not on anticoagulation
-Follows with cardiology diabetes
Left bundle branch block
Hypothyroidism
-Continue levothyroxine
Hyperlipidemia
-Continue statin
Type 2 diabetes
-Hold metformin
Essential hypertension
-Continue nifedipine
Sleep apnea
-Not on CPAP
Multiple left shoulder surgeries for septic left shoulder hardware removal
History of subdural hematoma
Trigeminal neuralgia
-Continue Depakote
History of CVA
Overactive bladder
-Continue tolterodine
History of C. difficile colitis
Chronic pain/fibromyalgia/depression
-Continue duloxetine, mirtazapine
-Continue tramadol
Restless leg syndrome
reviewed with at bedside
Full code
DVT prophylaxis�heparin
Regular diet
Anticipated Discharge: 24 - 48 hours
Subjective/Interval History
-
Date of Service: December 10, 2023
Does feel somewhat better
Objective Data
-
Labs:
Laboratory Results
12/10/23
05:52
WBC 7.5
Hgb 8.6 L
Hct 26.7 L
Plt Count 223
Sodium 139
Potassium 4.8
Chloride 115 H
Carbon Dioxide 21 L
BUN 56 H
Creatinine 1.2 H
Glucose 167 H
Calcium 8.8
Vital Signs:
Vital Signs
Temp Pulse Resp BP Pulse Ox
98.1 F 72 17 115/61 97
12/10/23 07:00 12/10/23 08:55 12/10/23 07:00 12/10/23 08:55 12/10/23 07:00
I&O
12/09/23 12/10/23 12/11/23
06:59 06:59 06:59
Intake Total 580 / 580 1735 / 1735
Output Total 1130 / 1130
Balance 580 / 580 605 / 605
Review of Systems
-
History Source: Patient and Family ( at bedside)
Constitutional: Denies Fever
EENT: Reports No Symptoms Reported
Respiratory: Reports No Symptoms
Cardiac: Reports No Symptoms
Abdomen/GI: Reports No Symptoms
Physical Exam
-
General: Well Developed, Well Nourished, No Apparent Distress and Appears Chronically Ill
HEENT: Normocephalic, Atraumatic and Moist Mucous Membranes
Respiratory: Clear to Auscultation; Negative Wheezes, Rales or Rhonchi
Cardiac: Regular Rhythm and S1/S2
GI: Soft, Nontender and Nondistended
Musculoskeletal: No Clubbing, No Cyanosis and No Edema
Skin: Warm and Dry
[2023-12-10 15:00] VITALS: BP 123/48
[2023-12-10 15:31] VITALS: BMI 23.0
[2023-12-10] MEDS: NOVOLOG FLEXPEN-LOW RESISTANCE 3 UNITS SC (17:08)
[2023-12-10 17:15] LABS: Glucose - Point of Care 226 mg/dl (70-99)
[2023-12-10] MEDS: DEPAKOTE (12 HR RELEASE) 500 MG PO (17:17)
[2023-12-10 22:30] LABS: Glucose - Point of Care 194 mg/dl (70-99)
[2023-12-10 23:00] VITALS: BP 142/66
[2023-12-10] MEDS: INVANZ 55 MG IV (23:01)
[2023-12-10] MEDS: DETROL 2 MG PO (23:01)
[2023-12-10] MEDS: FOLVITE 1 MG PO (23:01)
[2023-12-10] MEDS: REMERON 15 MG PO (23:02)
[2023-12-11] MEDS: SYNTHROID 112 MCG PO (05:42)
[2023-12-11 07:00] VITALS: BP 136/56
[2023-12-11 08:07] LABS: % Basophils 1.2 % (0-2); % Immature Granulocytes 0.2 % (0-0.5); % Lymphocytes 26.3 % (20.5-51.1); % Monocytes 9.5 % (1.7-9.3); % Neutrophils 55.8 % (42.2-75.2); Absolute Basophils 0.1 10^3/uL (0-0.2); Absolute Eosinophils 0.6 10^3/uL (0-0.7); Absolute Lymphocytes 2.3 10^3/uL (1.2-3.4); Absolute Monocytes 0.8 10^3/uL (0.1-0.6); Absolute Neutrophils 4.8 10^3/uL (1.4-6.5); Hematocrit 27.4 % (37.0-47.0); Hemoglobin 8.7 g/dL (12.0-16.0); Mean Corp Hgb Conc. 31.8 g/dL (33.0-37.0); Mean Corpuscular Hgb 28.4 pg (27.0-31.0); Mean Corpuscular Volume 89.5 fL (81.0-99.0); Nucleated Red Blood Cells % 0 %; Platelet Count 224 10^3/uL (130-400); Red Blood Cell Count 3.06 10^6/uL (4.20-5.40); Red Cell Dist. Width 16.2 % (11.5-14.5); White Blood Cell Count 8.7 10^3/uL (4.8-10.8)
[2023-12-11 08:29] LABS: Glucose - Point of Care 142 mg/dl (70-99)
[2023-12-11 08:37] LABS: Blood Urea Nitrogen 44 mg/dl (7-17); Calcium 8.9 mg/dl (8.4-10.2); Carbon Dioxide 18 mmol/L (22-30); Chloride 114 mmol/L (98-107); Estimated Creatinine Clearance 36 ml/min; Glucose 164 mg/dl (70-99); Potassium 4.9 mmol/L (3.5-5.1); Sodium 138 mmol/L (135-145); eGFR 58.39
[2023-12-11] MEDS: PROCARDIA XL (EXTENDED RELEASE) 30 MG PO (08:57)
[2023-12-11] MEDS: MAGNESIUM OXIDE 500 MG PO (08:58)
[2023-12-11] MEDS: B COMPLEX w/VITAMIN C 1 CAPLET PO (08:58)
[2023-12-11] MEDS: CYMBALTA DELAYED RELEASE 60 MG PO (08:58)
[2023-12-11] MEDS: PLAVIX 75 MG PO (08:58)
[2023-12-11] MEDS: HEPARIN 5000 UNITS SC ×2 (08:59→21:24)
[2023-12-11] MEDS: LIPITOR 40 MG PO (08:59)
[2023-12-11] MEDS: NOVOLOG FLEXPEN-LOW RESISTANCE SC (08:59)
[2023-12-11] MEDS: COREG 3.125 MG PO (08:59)
[2023-12-11] MEDS: ASPIR LOW (ENTERIC COATED) 81 MG PO (08:59)
--- NOTE | 2023-12-11 12:13 | W.PN.NEPH.PH ---
Today's Communication / Plan
-
d/c IVF
Assessment/Plan
-
Impression:
Acute kidney injury
CKD (1.1)
History of recurrent UTI (ESBL)
Coronary artery disease with previous stenting procedure
Paroxysmal atrial fibrillation
History of CVA
Hypothyroidism
Diabetes
History of subdural hematoma
Trigeminal neuralgia
Multiple left shoulder surgeries with septic left shoulder hardware removal
Bladder dysfunction
Chronic pain/ fibromyalgia
Depressed
Restless leg syndrome
Anemia
Plan:
AR:
May have been precipitated by prerenal stimulus given hypotension on admission,U na high with IVF
Lisinopril and Lasix held recently as outpatient by [place] nephrology
Urinalysis notes 1+ albumin 2+ blood possibly consistent with ongoing diabetic nephropathy and/or UTI
Kidney ultrasound notes chronicity with increased renal echogenicity but no evidence of hydronephrosis
Creatinine improving with NSS, cr down to 1, we can wean off IVF as long as po intake is adequate
Currently on ertapenem for suspected ESBL renally adjusted dosage for changing GFR
follow up bladder scan given history of bladder dysfunction, uses purewick nightly at home for overactive bladder
hb low but stable at 8.6, fe def noted, ferritin low , fe sat only 11%, paraprotein w/u pending , started IV fe course
pt would like to follow Docs at
-
-
Date of Service: December 11, 2023
CC / HPI / ROS
-
Chief Complaint:
AR
History of Present Illness:
cr better at 1.
BP stable, no fever
hb low but stable 8.7
bicarb low at 18
Review of Systems:
no cp or sob
no dysuria, on purewick-non oliguric
no fever
Labs
-
Labs:
WBC 8.7 10^3/uL (4.8-10.8) 12/11/23 07:41
RBC 3.06 10^6/uL (4.20-5.40) L 12/11/23 07:41
Hgb 8.7 g/dL (12.0-16.0) L 12/11/23 07:41
Hct 27.4 % (37.0-47.0) L 12/11/23 07:41
Plt Count 224 10^3/uL (130-400) 12/11/23 07:41
Sodium 138 mmol/L (135-145) 12/11/23 07:41
Potassium 4.9 mmol/L (3.5-5.1) 12/11/23 07:41
Chloride 114 mmol/L (98-107) H 12/11/23 07:41
Carbon Dioxide 18 mmol/L (22-30) L 12/11/23 07:41
BUN 44 mg/dl (7-17) H 12/11/23 07:41
Creatinine 1.0 mg/dL (0.6-1.0) 12/11/23 07:41
eGFR 58.39 12/11/23 07:41
Glucose 164 mg/dl (70-99) H 12/11/23 07:41
Calcium 8.9 mg/dl (8.4-10.2) 12/11/23 07:41
Albumin 3.2 g/dl (3.5-5.0) L 12/09/23 06:00
Physical Exam
-
Vital Signs:
Vital Signs
Temp Pulse Resp BP Pulse Ox
98.6 F 72 15 136/56 94
12/11/23 07:00 12/11/23 07:00 12/11/23 07:00 12/11/23 07:00 12/11/23 07:00
Cardiovascular:: Regular rate and rhythm
Respiratory:: Bilateral: CTA
Lung Excursion:: Normal
Abdomen:: Nontender and Soft
Extremity Edema:: None: Bilateral:
[place] Catheter: No
[2023-12-11] MEDS: FERRLECIT 110 MG IV (14:04)
[2023-12-11] MEDS: NOVOLOG FLEXPEN-LOW RESISTANCE 2 UNITS SC (14:04)
--- NOTE | 2023-12-11 14:08 | W.PN.HOSP.TC ---
Today's Communication/Plan
-
abx adjustment per ID
Assessment / Plan
Assessment / Plan
#AR on CKD 3
-Elevation of BUN suggesting prerenal etiology, although history does not suggest prerenal etiology, significantly improved
BUN/Creat: 72/2.0-->80/1.7-->56/1.2-->44/1.0
-Urinalysis showing albuminuria
-Continue to hold Lasix, lisinopril
-IV fluids to continue
NS at 50 cc/hr
-Nephrology consultation, pt states wishes to transfer care to nephrology from [place]
reviewed with Dr. Parisi, possible AR was caused by recurrent UTI
# Asymptomatic urinary tract infection
#recurrent ESBL Klebsiella UTI
-consult placed to ID, abx as per ID
-Ertapenem started
-Renal US: No sonographically demonstrable renal calculus. No hydronephrosis.
Underdistended urinary bladder with low-level echoes. Nonspecific. Such findings are nonspecific, and may be associated with sediment/fine particulate matter, excessive amounts of crystals, infection, or hematuria. Recommend correlation with
urinalysis.\\
Pt would like to see a Urogyne on dc, will refer to Dr. Dannielle Ambriz
CAD status post stents
-Continue aspirin, Plavix
-Continue Coreg
Paroxysmal atrial fibrillation as per notes
-Not on anticoagulation
-Follows with cardiology diabetes
Left bundle branch block
Hypothyroidism
-Continue levothyroxine
Hyperlipidemia
-Continue statin
Type 2 diabetes
-Holding metformin, plan on resuming as BUN/Creat continues to improve
Essential hypertension
-Continue nifedipine
Sleep apnea
-Not on CPAP
Multiple left shoulder surgeries for septic left shoulder hardware removal
History of subdural hematoma
Trigeminal neuralgia
-Continue Depakote
History of CVA
Overactive bladder
-Continue tolterodine
History of C. difficile colitis
Chronic pain/fibromyalgia/depression
-Continue duloxetine, mirtazapine
-Continue tramadol
Restless leg syndrome
reviewed with at bedside 12/10
Full code
DVT prophylaxis�heparin
Regular diet
Anticipated Discharge: 24 - 48 hours
Subjective/Interval History
-
Date of Service: December 11, 2023
In good spirits, generally feels better
Objective Data
-
Labs:
Laboratory Results
12/11/23
07:41
WBC 8.7
Hgb 8.7 L
Hct 27.4 L
Plt Count 224
Sodium 138
Potassium 4.9
Chloride 114 H
Carbon Dioxide 18 L
BUN 44 H
Creatinine 1.0
Glucose 164 H
Calcium 8.9
Vital Signs:
Vital Signs
Temp Pulse Resp BP Pulse Ox
98.6 F 72 15 136/56 94
12/11/23 07:00 12/11/23 07:00 12/11/23 07:00 12/11/23 07:00 12/11/23 07:00
I&O
12/10/23 12/11/23 12/12/23
06:59 06:59 06:59
Intake Total 580 / 580 2760 / 2760 240 / 240
Output Total 2029 / 2029
Balance 580 / 580 730 / 730 240 / 240
Review of Systems
-
History Source: Patient and Coordinated Provider
Constitutional: Denies Fever
EENT: Reports No Symptoms Reported
Respiratory: Reports No Symptoms
Cardiac: Reports No Symptoms
Abdomen/GI: Reports No Symptoms
Physical Exam
-
General: Well Developed, Well Nourished, No Apparent Distress and Appears Chronically Ill
HEENT: Normocephalic, Atraumatic and Moist Mucous Membranes
Respiratory: Clear to Auscultation; Negative Wheezes, Rales or Rhonchi
Cardiac: Regular Rhythm and S1/S2
GI: Soft, Nontender and Nondistended
Musculoskeletal: No Clubbing, No Cyanosis and No Edema
Skin: Warm and Dry
[2023-12-11 15:00] VITALS: BP 107/40
--- NOTE | 2023-12-11 15:44 | CON.ID ---
Consultation
-
Date/Time Consultation Requested: 12/11/23 14:10
Date/Time Consultation Performed: 12/11/23 15:44
Requesting Provider: Dr Martinez
Performing Provider: Dr Elizabeth
Reason for Consultation: ESBL infection
Chief Complaint / Past History
Chief Complaint
abnormal labs
History of Present Illness
Ms Teixeira is a 78 year old female with recent history of ESBL UTI, C difficile who presented here 12/07 for AR on CKD. Reports overactive bladder without change from her baseline. No: fevers or chills or abdominal pain or nausea or vomiting or
confusion
Since arrival here afebrile, bp stable, wbc 8.7, hgb 8.7, plt 224, no left shift, cr on arrival 2.0 now 1.0, a1c 7.4, urine culture 05/31 esbl kleb, 12/07 urine culture ESBL kleb, 12/07 renal US: no definite stone or obstruction, currently on
levofloxacin which she is tolerating, qtc not yet checked this admission
Past History
Additional Past Medical History:
CAD with stents, left bundle branch block, paroxysmal atrial fibrillation, CVA, trigeminal neuralgia, sleep apnea, hypertension, hypothyroidism, hyperlipidemia, type 2 diabetes, depression, ESBL UTI, left shoulder replacement complicated by septic
shoulder, subdural hematoma, overactive bladder,
Past Surgical History: None
Allergy History:
cephalexin Allergy (Verified 12/08/23 15:48)
Unknown
ciprofloxacin Allergy (Verified 12/08/23 15:48)
Hives
formaldehyde Allergy (Verified 12/08/23 15:48)
Shortness of Breath
Iodinated Contrast Media Allergy (Verified 12/08/23 15:48)
Hives
metoprolol Allergy (Verified 12/08/23 15:48)
Itching
Penicillins Allergy (Verified 12/08/23 15:48)
Unknown
piperacillin [From Zosyn] Allergy (Verified 12/08/23 15:48)
Unknown
pregabalin [From Lyrica] Allergy (Verified 12/08/23 15:48)
Hives
shellfish derived Allergy (Verified 12/08/23 15:48)
Unknown
Ltcsawm-OWE-IbS Reductase Inhibitor Allergy (Verified 12/08/23 15:48)
Unknown
Sulfa (Sulfonamide Antibiotics) Allergy (Verified 12/08/23 15:48)
Unknown
tazobactam [From Zosyn] Allergy (Verified 12/08/23 15:48)
Unknown
vancomycin Allergy (Verified 12/08/23 15:48)
Rash
antibiotics Allergy (Uncoded 12/08/23 15:48)
Unknown
Medications Reviewed: Yes
Social History
Tobacco: Non-Smoker
Alcohol: None
Drug: None
Family History
Family History: Not Pertinent
Review of Systems
Review of Systems
General: Negative Fever or Chills
All systems: All other systems were reviewed and were negative
Vital Signs
Temp Pulse Resp BP Pulse Ox
98.6 F 72 15 136/56 94
12/11/23 07:00 12/11/23 07:00 12/11/23 07:00 12/11/23 07:00 12/11/23 07:00
Physical Exam
Physical Exam
Constitutional: No Acute Distress
Cardiovascular: Regular Rate and S1/S2; Negative Murmur or Rub
Pulmonary: Clear and Symmetric; Negative Wheezes, Rales or Rhonchi
Gastrointestinal: Soft, Non Tender, Non Distended and Normal Bowel Sounds
Genito-Urinary: Clear Urine; Negative Suprapubic Tenderness or CVA Tenderness
Skin: Warm and Dry; Negative Rash or Jaundice
Lab / Diagnostic Study Results
12/11/23 07:41
12/11/23 07:41
Abs Immat Gran (auto) 0.0 10^3/uL (0-0.05) 12/11/23 07:41
Absolute Neuts (auto) 4.8 10^3/uL (1.4-6.5) 12/11/23 07:41
Absolute Lymphs (auto) 2.3 10^3/uL (1.2-3.4) 12/11/23 07:41
Absolute Monos (auto) 0.8 10^3/uL (0.1-0.6) H 12/11/23 07:41
Absolute Basos (auto) 0.1 10^3/uL (0-0.2) 12/11/23 07:41
Immature Gran % 0.2 % (0-0.5) 12/11/23 07:41
Neutrophils % 55.8 % (42.2-75.2) 12/11/23 07:41
Lymphocytes % 26.3 % (20.5-51.1) 12/11/23 07:41
Monocytes % 9.5 % (1.7-9.3) H 12/11/23 07:41
Eosinophils % 7.0 % (0-6) H 12/11/23 07:41
Basophils % 1.2 % (0-2) 12/11/23 07:41
Lactic Acid 0.7 mmol/L (0.7-2.0) 12/10/23 05:52
Microbiology Results
Micro:
12/08/23 20:53 Urine Culture - Final
Urine Klebsiella pneumoniae-ESBL
Assessment / Plan
UTI due to ESBL Kleb
Allergy to numerous medications including hives with cipro, sulfa
- no nidus for recurrent infections IDd
- blood cultures no growth to date
- check qtc
- will complete an adequate course of ertapenem this evening; then stop
- stable for dc from ID perspective, follow up with urogynecology
[2023-12-11 17:13] LABS: Glucose - Point of Care 226 mg/dl (70-99)
[2023-12-11 17:13] LABS: Glucose - Point of Care 325 mg/dl (70-99)
[2023-12-11 17:24] LABS: Glucose - Point of Care 327 mg/dl (70-99)
[2023-12-11] MEDS: NOVOLOG FLEXPEN-LOW RESISTANCE 4 UNITS SC (18:15)
[2023-12-11] MEDS: DEPAKOTE (12 HR RELEASE) 500 MG PO (18:16)
[2023-12-11] MEDS: REMERON 15 MG PO (21:23)
[2023-12-11] MEDS: DETROL 2 MG PO (21:23)
[2023-12-11] MEDS: FOLVITE 1 MG PO (21:23)
[2023-12-11] MEDS: INVANZ 55 MG IV (21:24)
[2023-12-11 21:26] LABS: Glucose - Point of Care 349 mg/dl (70-99)
[2023-12-11 23:00] VITALS: BP 143/59
[2023-12-11] MEDS: NOVOLOG FLEXPEN 4 UNITS SC (23:10)
[2023-12-12] MEDS: SYNTHROID 112 MCG PO (05:28)
[2023-12-12 07:00] VITALS: BP 152/60
[2023-12-12 07:25] LABS: % Basophils 1.1 % (0-2); % Eosinophils 7.1 % (0-6); % Immature Granulocytes 1.6 % (0-0.5); % Lymphocytes 27.1 % (20.5-51.1); % Monocytes 11.2 % (1.7-9.3); % Neutrophils 51.9 % (42.2-75.2); Absolute Basophils 0.1 10^3/uL (0-0.2); Absolute Eosinophils 0.6 10^3/uL (0-0.7); Absolute Immature Granulocytes 0.1 10^3/uL (0-0.05); Absolute Lymphocytes 2.4 10^3/uL (1.2-3.4); Absolute Neutrophils 4.6 10^3/uL (1.4-6.5); Hemoglobin 7.9 g/dL (12.0-16.0); Mean Corp Hgb Conc. 32.9 g/dL (33.0-37.0); Mean Corpuscular Hgb 28.2 pg (27.0-31.0); Mean Corpuscular Volume 85.7 fL (81.0-99.0); Mean Platelet Volume 11.8 fL (7.4-10.4); Nucleated Red Blood Cells % 0 %; Platelet Count 206 10^3/uL (130-400); Red Cell Dist. Width 16.2 % (11.5-14.5); White Blood Cell Count 8.9 10^3/uL (4.8-10.8)
[2023-12-12 07:58] LABS: Blood Urea Nitrogen 44 mg/dl (7-17); Calcium 8.1 mg/dl (8.4-10.2); Carbon Dioxide 17 mmol/L (22-30); Chloride 115 mmol/L (98-107); Estimated Creatinine Clearance 40 ml/min; Glucose 169 mg/dl (70-99); Potassium 4.8 mmol/L (3.5-5.1); Sodium 137 mmol/L (135-145); eGFR > 60.00
[2023-12-12 08:44] LABS: Glucose - Point of Care 224 mg/dl (70-99)
[2023-12-12] MEDS: LIPITOR 40 MG PO (08:53)
[2023-12-12] MEDS: CYMBALTA DELAYED RELEASE 60 MG PO (08:54)
[2023-12-12] MEDS: ASPIR LOW (ENTERIC COATED) 81 MG PO (08:54)
[2023-12-12] MEDS: PROCARDIA XL (EXTENDED RELEASE) 30 MG PO (08:54)
[2023-12-12] MEDS: MAGNESIUM OXIDE 500 MG PO (08:54)
[2023-12-12] MEDS: HEPARIN 5000 UNITS SC (08:54)
[2023-12-12] MEDS: B COMPLEX w/VITAMIN C 1 CAPLET PO (08:54)
[2023-12-12] MEDS: PLAVIX 75 MG PO (08:54)
[2023-12-12] MEDS: COREG 3.125 MG PO (08:54)
[2023-12-12] MEDS: NOVOLOG FLEXPEN-LOW RESISTANCE 2 UNITS SC (08:55)
[2023-12-12 09:03] VITALS: BP 131/60; PULSE 69; O2SAT 98
[2023-12-12 09:05] VITALS: BP 131/60; PULSE 69; O2SAT 98
[2023-12-12 12:17] LABS: Glucose - Point of Care 284 mg/dl (70-99)
--- NOTE | 2023-12-12 12:19 | W.PN.NEPH.PH ---
Addendum entered and electronically signed by Marisa Parisi MD 12/12/23 12:26:
PE:
Cardiovascular:: Regular rate and rhythm
Respiratory:: Bilateral: CTA
Lung Excursion:: Normal
Abdomen:: Nontender and Soft
Extremity Edema:: None: Bilateral:
[place] Catheter: No
Original Note:
Today's Communication / Plan
-
observe off IVF
add po bciarb
Assessment/Plan
-
Impression:
Acute kidney injury
CKD (1.1)
History of recurrent UTI (ESBL)
Coronary artery disease with previous stenting procedure
Paroxysmal atrial fibrillation
History of CVA
Hypothyroidism
Diabetes
History of subdural hematoma
Trigeminal neuralgia
Multiple left shoulder surgeries with septic left shoulder hardware removal
Bladder dysfunction
Chronic pain/ fibromyalgia
Depressed
Restless leg syndrome
Anemia
Plan:
AR:
May have been precipitated by prerenal stimulus given hypotension on admission,U na high with IVF
Lisinopril and Lasix held recently as outpatient by [place] [facility]
Urinalysis notes 1+ albumin 2+ blood possibly consistent with ongoing diabetic nephropathy and/or UTI, U PCR 700mg/gm of cr
Kidney ultrasound notes chronicity with increased renal echogenicity but no evidence of hydronephrosis
Creatinine improving with NSS, cr down to 0.9, off IVF
mild met acidosis-add sodium bciarb 650mg BID, recheck BMP in 1week with pcp and likely wean off in future
completed ertapenem for suspected ESBL
follow up bladder scan given history of bladder dysfunction, uses purewick nightly at home for overactive bladder
hb low at 7.9, fe def noted, ferritin low , fe sat only 11%, paraprotein w/u pending , on IV fe course
BP are stable, ok to resume ACEI, metformin at d/c . She was not taking lasix before so only resume prn basis
currently she has no definite need of nephro f/u, if her PCP feels there is need in future she will contact us
will s/o, call with ?s
d/c plan
-
-
Date of Service: December 12, 2023
CC / HPI / ROS
-
Chief Complaint:
AR
History of Present Illness:
cr better at 0.9
BP stable, no fever
hb low 7.9
bicarb low at 17
Review of Systems:
no cp or sob
no dysuria, on purewick-non oliguric
no fever
Labs
-
Labs:
WBC 8.9 10^3/uL (4.8-10.8) 12/12/23 06:10
RBC 2.80 10^6/uL (4.20-5.40) L 12/12/23 06:10
Hgb 7.9 g/dL (12.0-16.0) L 12/12/23 06:10
Hct 24.0 % (37.0-47.0) L 12/12/23 06:10
Plt Count 206 10^3/uL (130-400) 12/12/23 06:10
Sodium 137 mmol/L (135-145) 12/12/23 06:10
Potassium 4.8 mmol/L (3.5-5.1) 12/12/23 06:10
Chloride 115 mmol/L (98-107) H 12/12/23 06:10
Carbon Dioxide 17 mmol/L (22-30) L 12/12/23 06:10
BUN 44 mg/dl (7-17) H 12/12/23 06:10
Creatinine 0.9 mg/dL (0.6-1.0) 12/12/23 06:10
eGFR > 60.00 12/12/23 06:10
Glucose 169 mg/dl (70-99) H 12/12/23 06:10
Calcium 8.1 mg/dl (8.4-10.2) L 12/12/23 06:10
Albumin 3.2 g/dl (3.5-5.0) L 12/09/23 06:00
Physical Exam
-
Vital Signs:
Vital Signs
Temp Pulse Resp BP Pulse Ox
98.4 F 79 17 131/60 97
12/12/23 07:00 12/12/23 07:00 12/12/23 07:00 12/12/23 08:54 12/12/23 07:00
[2023-12-12] MEDS: NOVOLOG FLEXPEN-LOW RESISTANCE 3 UNITS SC (12:58)
[2023-12-12] MEDS: SODIUM BICARBONATE 650 MG PO (12:58)
--- NOTE | 2023-12-12 12:59 | W.PN.ID1 ---
Date of Service
Date of Service: December 12, 2023
Today's Communication
ID service will no longer actively follow this patient please recall for further questions
Assessment / Plan
UTI due to ESBL Kleb
Allergy to numerous medications including hives with cipro, sulfa
- no nidus for recurrent infections IDd
- blood cultures no growth to date
- check qtc
- will complete an adequate course of ertapenem this evening; then stop
- stable for dc from ID perspective, follow up with urogynecology
ID service will no longer actively follow this patient please recall for further questions
Chief Complaint
-: UTI
Subjective / Review of Systems
afebrile
bp stable
cr stable
no suprapubic tenderness
Vital Signs / Physical Exam
Vital Signs
Vital Signs
Temp Pulse Resp BP Pulse Ox
98.4 F 79 17 131/60 97
12/12/23 07:00 12/12/23 07:00 12/12/23 07:00 12/12/23 08:54 12/12/23 07:00
Physical Exam
Constitutional: No Acute Distress
Cardiovascular: Regular Rate and S1/S2; Negative Murmur or Rub
Pulmonary: Clear and Symmetric; Negative Wheezes or Rales
Gastrointestinal: Soft, Non Tender, Non Distended and Normal Bowel Sounds
Genito-Urinary: Negative Suprapubic Tenderness or CVA Tenderness
Skin: Warm and Dry; Negative Rash or Jaundice
Objective Data
Lab Data
Lab Results
12/12/23 06:10
Estimated Creat Clear 40 ml/min 12/12/23 06:10
Lactic Acid 0.7 mmol/L (0.7-2.0) 12/10/23 05:52
Total Bilirubin 0.2 mg/dl (0.2-1.3) 12/09/23 06:00
AST 19 U/L (14-36) 12/09/23 06:00
ALT 14 U/L (0-35) 12/09/23 06:00
Alkaline Phosphatase 89 U/L (38-126) 12/09/23 06:00
Most recent labs reviewed.
Micro Results:
12/08/23 20:53 Urine Culture - Final
Urine Klebsiella pneumoniae-ESBL
[2023-12-12 13:32] LABS: Hematocrit 26.6 % (37.0-47.0); Hemoglobin 8.9 g/dL (12.0-16.0); Mean Corp Hgb Conc. 33.5 g/dL (33.0-37.0); Mean Corpuscular Hgb 28.9 pg (27.0-31.0); Mean Corpuscular Volume 86.4 fL (81.0-99.0); Mean Platelet Volume 11.3 fL (7.4-10.4); Platelet Count 248 10^3/uL (130-400); Red Blood Cell Count 3.08 10^6/uL (4.20-5.40); Red Cell Dist. Width 16.6 % (11.5-14.5); White Blood Cell Count 8.4 10^3/uL (4.8-10.8)
[2023-12-12] MEDS: FERRLECIT IV (14:38)
--- NOTE | 2023-12-12 14:44 | W.PN.HOSP.TC ---
Today's Communication/Plan
-
dc to home
Assessment / Plan
Assessment / Plan
#AR on CKD 3
-Elevation of BUN suggesting prerenal etiology, although history does not suggest prerenal etiology, significantly improved
BUN/Creat: 72/2.0-->80/1.7-->56/1.2-->44/1.0-->44/0.9
-Urinalysis showing albuminuria
-Continue to hold Lasix, lisinopril
-IV fluids stopped by nephrology
-Nephrology consultation, pt states wishes to transfer care to nephrology from [place]
reviewed with Dr. Parisi, possible AR was caused by recurrent UTI
# Asymptomatic urinary tract infection
#recurrent ESBL Klebsiella UTI
-consult placed to ID, abx as per ID
-Ertapenem started, okay to stop as per ID
-Renal US: No sonographically demonstrable renal calculus. No hydronephrosis.
Underdistended urinary bladder with low-level echoes. Nonspecific. Such findings are nonspecific, and may be associated with sediment/fine particulate matter, excessive amounts of crystals, infection, or hematuria. Recommend correlation with
urinalysis.\\
Pt would like to see a Urogyne on dc, will refer to Dr. Dannielle Ambriz
CAD status post stents
-Continue aspirin, Plavix
-Continue Coreg
Paroxysmal atrial fibrillation as per notes
-Not on anticoagulation
-Follows with cardiology diabetes
Left bundle branch block
Hypothyroidism
-Continue levothyroxine
Hyperlipidemia
-Continue statin
Type 2 diabetes
-Holding metformin, plan on resuming as BUN/Creat continues to improve
Essential hypertension
-Continue nifedipine
Sleep apnea
-Not on CPAP
Multiple left shoulder surgeries for septic left shoulder hardware removal
History of subdural hematoma
Trigeminal neuralgia
-Continue Depakote
History of CVA
Overactive bladder
-Continue tolterodine
History of C. difficile colitis
Chronic pain/fibromyalgia/depression
-Continue duloxetine, mirtazapine
-Continue tramadol
Restless leg syndrome
reviewed with at bedside 12/10
Full code
DVT prophylaxis�heparin
Regular diet
drop in Hgb noted, repeated, found to be 8.9. Will dc
see dictated note
More than 30 minutes spent in discharge including
Final examination of the patient
Summarizing hospital stay
Instructions for continuing care to all relevant caregivers
Preparation of discharge records, prescriptions, and referral forms
Total time spent (in minutes): 45
2 visits
Anticipated Discharge: Today
Subjective/Interval History
-
Date of Service: December 12, 2023
Feels well
Objective Data
-
Labs:
Laboratory Results
12/12/23 12/12/23
06:10 13:17
WBC 8.9 8.4
Hgb 7.9 L 8.9 L
Hct 24.0 L 26.6 L
Plt Count 206 248 D
Sodium 137
Potassium 4.8
Chloride 115 H
Carbon Dioxide 17 L
BUN 44 H
Creatinine 0.9
Glucose 169 H
Calcium 8.1 L
Vital Signs:
Vital Signs
Temp Pulse Resp BP Pulse Ox
98.4 F 79 17 131/60 97
12/12/23 07:00 12/12/23 07:00 12/12/23 07:00 12/12/23 08:54 12/12/23 07:00
I&O
12/11/23 12/12/23 12/13/23
06:59 06:59 06:59
Intake Total 2760 / 2760 2400 / 2400 240 / 240
Output Total 2029 700 / 700
Balance 730 / 730 2400 / 2400 -460 / -460
Review of Systems
-
History Source: Patient and Coordinated Provider
Constitutional: Denies Fever
EENT: Reports No Symptoms Reported
Respiratory: Reports No Symptoms
Cardiac: Reports No Symptoms
Abdomen/GI: Reports No Symptoms
Physical Exam
-
General: Well Developed, Well Nourished, No Apparent Distress and Appears Chronically Ill
HEENT: Normocephalic, Atraumatic and Moist Mucous Membranes
Respiratory: Clear to Auscultation; Negative Wheezes, Rales or Rhonchi
Cardiac: Regular Rhythm and S1/S2
GI: Soft, Nontender and Nondistended
Musculoskeletal: No Clubbing, No Cyanosis and No Edema
Skin: Warm and Dry
[2023-12-12 15:00] VITALS: BP 133/61
--- NOTE | 2023-12-12 15:40 | CM ---
Received referral for patient. Spoke with patient who stated that she is agreeable to discharge and VN which is indicated (referral reason). Patient selected [facility]. Will fax referral.
Plan: Case management will continue to follow and assist with discharge planning. Home with VN through [facility].
--- NOTE | 2023-12-12 18:37 | W.DS.TRANS ---
DC Summary - Early Morning
-
Discharge Instructions:
Discharge Diagnosis/Procedures Acute Kidney Injury, UTI
Diet Low Sodium
Activity No restrictions
Driving Restrictions No driving
Bathing Restrictions None
Blood Work CBC, BMP, UA with C&S in 1-2 weeks
Other Services VN,PT
Instructions:
Stand-Alone Forms:
Changes to Home Medications: Yes
Discharge Medications:
DC Medications w/original date entered in [facility]
aspirin 81 mg tablet,delayed release 81 mg PO DAILY Blood Clot Prevention/Tx 05/17/23
atorvastatin 40 mg tablet (Lipitor) 40 mg PO DAILY High Cholesterol 05/17/23
carvedilol 3.125 mg tablet (Coreg) 3.125 mg PO DAILY Heart Failure 05/17/23
divalproex 500 mg tablet,delayed release 500 mg PO QPM Neurological Condition 05/17/23
duloxetine 60 mg capsule,delayed release (Cymbalta) 60 mg PO DAILY Neurological Condition 05/17/23
folic acid 1 mg tablet 1 mg PO HS Supplement 05/17/23
levothyroxine 112 mcg tablet (Synthroid) 112 mcg PO DAILY Thyroid 05/17/23
magnesium oxide 400 mg PO DAILY Supplement 05/17/23
mirtazapine 15 mg tablet 15 mg PO HS Mental Health/Anxiety 05/17/23
vitamin B complex 1 tab PO DAILY Supplement 05/17/23
nifedipine 30 mg tablet,extended release 30 mg PO DAILY Blood pressure #30 tabs 05/22/23
tolterodine 2 mg tablet 2 mg PO HS Urinary Issue 12/08/23
tramadol 50 mg tablet 50 mg PO BID PRN moderate pain 12/08/23
metformin 500 mg tablet 500 mg PO BID #60 tabs 12/12/23
sodium bicarbonate 650 mg tablet 650 mg PO BID #60 tabs 12/12/23
Home Medication Changes
start NaHCO3
decrease Metformin to 1/2 prior dosing
stop Lisinopril and Lasix
Pending Results: No
[2023-12-14 11:35] LABS: Albumin 3.05 g/dL (3.75-5.01); Alpha 1 Globulin 0.29 g/dL (0.19-0.46); Alpha 2 Globulin 0.81 g/dL (0.48-1.05); SPEP IFE Reflex Not Done; Total Protein-Electrophoresis 5.7 g/dL (6.3-8.2)
== END 2023-12-12 16:22 | disposition home health service (06) | DRG 683 ==
LOC: 3 WEST ACU 22:16
PROVIDERS: Emergency Medicine; ADMITTING PHYSICIAN Hospitalist; ATTENDING PHYSICIAN Internal Medicine; CONSULT PHYSICIAN Specialist; CONSULT PHYSICIAN Student in an Organized Health Care Education/Training Program; EMERGENCY PHYSICIAN Emergency Medicine; PRIMARYCARE PHYSICIAN Internal Medicine
DX: N17.9 Acute kidney failure, unspecified (principal); I13.0 Hypertensive heart and chronic kidney disease with heart failure and stage 1 through stage 4 chronic kidney disease, or unspecified chronic kidney disease; Z16.12 Extended spectrum beta lactamase (ESBL) resistance; N39.0 Urinary tract infection, site not specified; N18.30 Chronic kidney disease, stage 3 unspecified; E78.00 Pure hypercholesterolemia, unspecified; I48.0 Paroxysmal atrial fibrillation; I25.10 Atherosclerotic heart disease of native coronary artery without angina pectoris; I44.7 Left bundle-branch block, unspecified; E03.9 Hypothyroidism, unspecified; B96.1 Klebsiella pneumoniae [K. pneumoniae] as the cause of diseases classified elsewhere; G47.33 Obstructive sleep apnea (adult) (pediatric); F32.A Depression, unspecified; G25.81 Restless legs syndrome; M79.7 Fibromyalgia; G89.29 Other chronic pain; N32.81 Overactive bladder; I50.9 Heart failure, unspecified; D64.9 Anemia, unspecified; G50.0 Trigeminal neuralgia; E11.22 Type 2 diabetes mellitus with diabetic chronic kidney disease; Z96.612 Presence of left artificial shoulder joint; Z79.02 Long term (current) use of antithrombotics/antiplatelets; Z79.82 Long term (current) use of aspirin; Z79.84 Long term (current) use of oral hypoglycemic drugs; Z79.890 Hormone replacement therapy; Z95.5 Presence of coronary angioplasty implant and graft; Z86.73 Personal history of transient ischemic attack (TIA), and cerebral infarction without residual deficits; Z87.440 Personal history of urinary (tract) infections; Z88.2 Allergy status to sulfonamides; Z88.8 Allergy status to other drugs, medicaments and biological substances; Z88.1 Allergy status to other antibiotic agents; Z91.041 Radiographic dye allergy status; Z88.0 Allergy status to penicillin; Z91.013 Allergy to seafood; Z86.19 Personal history of other infectious and parasitic diseases; Z87.891 Personal history of nicotine dependence
CPT/HCPCS: 76770; 80048; 80053; 81003; 81015; 82533; 82570; 82728; 82962; 83036; 83540; 83550; 83605; 84155; 84156; 84165; 84300; 85025; 85027; 86803; 86850; 86900; 86901; 87077; 87086; 87186; 93005; 96365; 97162; 97166; 99284; J1335; J2916

== ENCOUNTER 2024-01-02 21:14 | Inpatient (IN) | payer MEDICARE, SELFPAY ==
[2024-01-02] VITALS (8 sets, daily range): BP systolic 103–151; BP diastolic 34–81; BMI 25.2
--- NOTE | 2024-01-02 14:57 | PHANOTE ---
Med Rec Note- patient stated she took one hctz 25mg on 12/31/24 due to her ankle swelling but she was told on last admission 12/08/23 to not take it. patient filled Plavix 75mg on 12/27/23 but say she not taking not on discharge paperwork on 12/08/23
[2024-01-02 15:42] LABS: % Basophils 1.2 % (0-2); % Immature Granulocytes 0.4 % (0-0.5); % Lymphocytes 23.7 % (20.5-51.1); % Monocytes 10.9 % (1.7-9.3); % Neutrophils 55.8 % (42.2-75.2); Absolute Basophils 0.1 10^3/uL (0-0.2); Absolute Eosinophils 0.5 10^3/uL (0-0.7); Absolute Lymphocytes 1.6 10^3/uL (1.2-3.4); Absolute Monocytes 0.7 10^3/uL (0.1-0.6); Absolute Neutrophils 3.8 10^3/uL (1.4-6.5); Hematocrit 25.4 % (37.0-47.0); Hemoglobin 8.3 g/dL (12.0-16.0); Mean Corp Hgb Conc. 32.7 g/dL (33.0-37.0); Mean Corpuscular Hgb 28.1 pg (27.0-31.0); Mean Corpuscular Volume 86.1 fL (81.0-99.0); Mean Platelet Volume 11.1 fL (7.4-10.4); Nucleated Red Blood Cells % 0 %; Platelet Count 349 10^3/uL (130-400); Red Blood Cell Count 2.95 10^6/uL (4.20-5.40); Red Cell Dist. Width 16.8 % (11.5-14.5); White Blood Cell Count 6.8 10^3/uL (4.8-10.8)
--- NOTE | 2024-01-02 15:43 | ED.GENMED ---
History of Present Illness
General
Chief Complaint: Swelling
Source: patient
Exam Limitations: none
Time Seen by Provider: 01/02/24 14:13
Nursing documentation reviewed up to this point in time: agreed with
Travel History
Have you had any contact with someone who has COVID-19?: No
Do you have any symptoms of coronavirus? Fever > 100 degrees, chills, cough, shortness of breath, sore throat, loss of taste or smell, muscle aches, or headache?: No
History of Present Illness
History of Present Illness:
78 y/o F with h/o PAF, CKD, cva, htn, hld, dm, anemia, chronic lisa
lives with daughter
other daughter is caring for her this week because her live-in daughter is out of town
pt has had some issues with CKD, and edema in legs
was formerly on diuretic, suspected to be lasix but they aren't sure the dose
but in the past month or so she had to d/c the lasix due to the kidney disease
no dialysis at this time
over the past 2 weeks she has noticed edema in both LE, L>R with some erythema
she says that las tnight she took a dose of hctz that she had
pt did see her DIAMOND DIE POLISHER last week who comes to [facility] who noticed the fluid and ordered some labs and urine tetst
she doesn't know the results
pt has not had fever, chills, cp, sob, vomiting, diarrhea, abdomianl apin
she has pain in both legs
previous PAD surgery i bleieve on the L leg, though pt doesn't know for sure what srugery she has
pt also appears pale to daughter
she has chronic anemia
Past History
Past History
ED Past Medical History: Arrthythmia, HTN, Hypercholesterolemia and NIDDM
Social History
Tobacco: Non-smoker
Alcohol: None
Review of Systems
Review of Systems
Allergies reviewed?: Yes
All Other Systems: Not applicable
Phy Exam
Physical Exam
Physical Exam:
GENERAL: Alert , in no apparent distress
EYE: pupils equal and reactive
NECK: Supple
ENT: o/p clr, mmm.
CARDIAC: Regular rate and rhythm .+ edema pitting symmetric
LUNGS: Clear breath sounds bilaterally, no acute respiratory distress, no wheezes/rales/rhonchi
ABDOMEN: Soft, without focal tenderness, no r/g, no cvat, normal bowel sounds
NEUROLOGICAL: Alert and oriented, no focal neuro deficits
SKIN: Warm and dry, pale skin intact.
MUSCULOSKELETAL: moderate edema, well perfused. erythema trace anterior lower extremity
PSYCH: Normal and appropriate interaction.
Scores
Heart Failure Risk
Heart Failure Risk Score: Not Applicable
Course
Orders/Labs/Results
Orders:
Orders
01/02/24 15:05
Venous Doppler Lwr Ext Bilat [[facility] Venous LOWER Ext Shantanu] Urgent
Comment:
Reason For Exam: b/l le edema, erythema
01/02/24 15:06
Electrocardiogram (*1) Urgent
Reason for Study: Fatigue / Weakness
EKG- Treatment ONCE
CR Chest - 2 Views Urgent
Comment:
Reason For Exam: b/l LE edema, chf
01/02/24 15:25
Complete Blood Count/With Diff Urgent
Comprehensive Metabolic Panel Urgent
Magnesium Urgent
NT-proBNP Urgent
01/02/24 16:09
Furosemide [Lasix] 40 mg IV NOW STA
01/02/24 17:15
Urinalysis Reflex To Culture Urgent
Date Specimen was Collected: 01/02/24
Time Specimen was Collected: 16:14
Abnormal Lab Results
01/02/24
15:25
RBC 2.95 L 10^6/uL
(4.20-5.40)
Hgb 8.3 L g/dL
(12.0-16.0)
Hct 25.4 L %
(37.0-47.0)
MCHC 32.7 L g/dL
(33.0-37.0)
RDW 16.8 H %
(11.5-14.5)
MPV 11.1 H fL
(7.4-10.4)
Absolute Monos (auto) 0.7 H 10^3/uL
(0.1-0.6)
Monocytes % 10.9 H %
(1.7-9.3)
Eosinophils % 8.0 H %
(0-6)
Chloride 111 H mmol/L
(98-107)
Carbon Dioxide 17 L mmol/L
(22-30)
BUN 43 H mg/dl
(7-17)
Glucose 256 H mg/dl
(70-99)
Total Protein 6.0 L g/dl
(6.3-8.2)
Albumin 3.0 L g/dl
(3.5-5.0)
01/02/24 15:25
01/02/24 15:25
Vital Signs
Initial and Last Documented VS:
Initial Vital Signs
Temp Pulse Resp BP Pulse Ox
98.8 F 81 18 131/81 97
01/02/24 13:54 01/02/24 13:54 01/02/24 13:54 01/02/24 13:54 01/02/24 13:54
Last Documented Vital Signs
Temp Pulse Resp BP Pulse Ox
98.8 F 77 21 124/50 99
01/02/24 13:54 01/02/24 17:41 01/02/24 17:00 01/02/24 17:41 01/02/24 17:00
MDM/Problems Addressed
Differential Diagnosis Includes:
edema, chf, cellulitis, dvt, ckd, deconditioning
MDM/Problems Addressed:
78 y/o F with PAF, cad with stents, no anticoagulation, CKD, chf
bobtailer is from [place]
most care is [place] but her daughter wnats her care to be here
brought in for worsening B/L LE edema with erythma and pain x 2 weeks
off her diurectic due to CKD per her credit control assistant
10kg weight gain since last admission
no cp, sob
legs appear minimally pink but swollen pitting and mild tendenress
no crackles
hg stable
cr improved from previous
will admit for CHF
lasix
dvt study neg
*Critical Care Note
Total Time (30-74mins, 75-104mins- exclusive of procedures): Not Applicable
ED Attending Note
-
Portions of this chart may have been created with voice recognition software.� Occasional wrong word or��sound alike� substitutions may have occurred due to the inherent limitations of voice recognition software.
Discharge Plan
Departure
Patient Disposition: Admit
Date of Disposition: 01/02/24
Time of Disposition: 17:29
Admit to: Telemetry
Presentation/result/management discussed w/ accepting MD/DO: Hospitalist
Patient with high blood pressure during this ER visit?: No
Condition: Fair
Covid-19: Not Applicable
Discharge Problem:
Edema, Anemia, CHF (congestive heart failure), Physical deconditioning
Prescriptions:
No Action
atorvastatin [Lipitor] 40 mg Tablet
40 mg PO DAILY
divalproex 500 mg Tablet,Delayed Release (Dr/Ec)
500 mg PO QPM
aspirin 81 mg Tablet,Delayed Release (Dr/Ec)
81 mg PO DAILY
carvedilol [Coreg] 3.125 mg Tablet
3.125 mg PO DAILY
vitamin B complex Tablet
1 tab PO DAILY
folic acid 1 mg Tablet
1 mg PO HS
mirtazapine 15 mg Tablet
15 mg PO HS
levothyroxine [Synthroid] 112 mcg Tablet
112 mcg PO DAILY
duloxetine [Cymbalta] 60 mg Capsule,Delayed Release(Dr/Ec)
60 mg PO DAILY
magnesium oxide 400 mg magnesium Tablet
400 mg PO DAILY
nifedipine 30 mg Tablet Extended Release
30 mg PO DAILY Qty: 30 0RF
tramadol 50 mg tablet
50 mg PO BIDPRN PRN (Reason: moderate pain)
Patient Comments:
12/08/2023: last filled 12/03/23, 14 tabs for 7 days from [facility]
tolterodine 2 mg tablet
2 mg PO HS
sodium bicarbonate 650 mg Tablet
650 mg PO BID Qty: 60 0RF
metformin 500 mg tablet
500 mg PO BID Qty: 60 0RF
acetaminophen [Tylenol Extra Strength] 500 mg Tablet
1,000 mg PO Q6HPRN PRN (Reason: MILD PAIN)
Referrals:
Argelia Narayanan NP [Family Provider] -
Interventions
Interventions:
*Risk Screen - Suicide Last Done: 01/02/24 14:30
*General Assessment Last Done: 01/02/24 13:54
*Neglect/Abuse Screening Last Done: 01/02/24 14:30
*ED COVID-19 Vaccine History Last Done: 01/02/24 13:54
ED- Cardiac Assessment Last Done: 01/02/24 14:30
ED- Pulmonary Assessment Last Done: 01/02/24 14:30
ED-Skin Assessment Last Done: 01/02/24 14:30
Discharge Date and Time
Print Language: HAITIAN
[2024-01-02 15:50] LABS: ALT (SGPT) 15 U/L (0-35); AST (SGOT) 18 U/L (14-36); Alkaline Phosphatase 82 U/L (38-126); Blood Urea Nitrogen 43 mg/dl (7-17); Calcium 8.9 mg/dl (8.4-10.2); Carbon Dioxide 17 mmol/L (22-30); Chloride 111 mmol/L (98-107); Glucose 256 mg/dl (70-99); Magnesium 1.9 mg/dl (1.6-2.3); Potassium 5.1 mmol/L (3.5-5.1); Sodium 137 mmol/L (135-145); Total Bilirubin 0.3 mg/dl (0.2-1.3); eGFR 58.39
[2024-01-02 15:55] LABS: NT-proBNP 7590 pg/ml
[2024-01-02] MEDS: LASIX 40 MG IV (17:41)
[2024-01-02 19:35] LABS: Urine Albumin Trace (Neg - Trace); Urine Bilirubin Negative (Negative); Urine Character Slightly Cloudy (Clear); Urine Color Yellow; Urine Glucose Negative (Negative); Urine Ketone Negative (Negative); Urine Leukocyte 2+ (Negative); Urine Nitrite Negative (Negative); Urine Occult Blood Trace (Negative); Urine Urobilinogen Negative (Neg - 1+)
[2024-01-02 20:11] LABS: Urine Bacteria Many (Negative); Urine Red Blood Cell 0-2 /HPF (0-2); Urine White Cell >100 /HPF (0-5)
--- NOTE | 2024-01-02 20:18 | HPS.HSE ---
Family Physician
-
Family Physician: Argelia Narayanan NP
Chief Complaint
-
edema
History of Present Illness
8 y/o F with h/o PAF, CKD, cva, htn, hld, dm, anemia presented to us with b/l LE edema for two weeks. her Lasix was discontinued while she was her was last time due to kidney injury mercedes was three weeks ago. her primary care called her on Wednesday,
asked her call nephrology for diuretics. she couldn't get hold off them. last night, she started having pain. she took her 's hctz, thinking that will help. she also noted b/l LE pain. pt has not had fever, chills, cp, sob, vomiting,
diarrhea, abdominal pain.pateint denied dysuria or hematuria.
on arrival she has b/l LE edema. BNP in 0's. received a dose of Lasix. admitting for further management.
Medical History
Past Medical History
Past Medical History: Reports Other
Additional Past Medical History:
CAD with stents, left bundle branch block, paroxysmal atrial fibrillation, CVA, trigeminal neuralgia, sleep apnea, hypertension, hypothyroidism, hyperlipidemia, type 2 diabetes, depression, ESBL UTI, left shoulder replacement complicated by septic
shoulder, subdural hematoma, overactive bladder, C
Past Surgical History: Reports Other
Additional Past Surgical History:
Cholecystectomy
Hysterectomy
Left shoulder surgery
left hip surgery
Cardiac stent
Social History
Tobacco: Non-smoker
Alcohol: None
Drug: None
Personal:
Living: With Family
Family History
Family History: Not pertinent
Allergies / Home Medications
Allergies reflects when Allergies were last updated in [facility].
Home Medications with original date entered in [facility]
Allergy/Medication List:
Allergies
Allergy/AdvReac Type Severity Reaction Status Date / Time
cephalexin Allergy Unknown Verified 01/02/24 13:57
ciprofloxacin Allergy Hives Verified 01/02/24 13:57
formaldehyde Allergy Shortness Verified 01/02/24 13:57
of Breath
Iodinated Contrast Media Allergy Hives Verified 01/02/24 13:57
metoprolol Allergy Itching Verified 01/02/24 13:57
Penicillins Allergy Unknown Verified 01/02/24 13:57
piperacillin [From Zosyn] Allergy Unknown Verified 01/02/24 13:57
pregabalin [From Lyrica] Allergy Hives Verified 01/02/24 13:57
shellfish derived Allergy Unknown Verified 01/02/24 13:57
Enybrpo-GGN-TeY Reductase Allergy Unknown Verified 01/02/24 13:57
Inhibitor
Sulfa (Sulfonamide Allergy Unknown Verified 01/02/24 13:57
Antibiotics)
tazobactam [From Zosyn] Allergy Unknown Verified 01/02/24 13:57
vancomycin Allergy Rash Verified 01/02/24 13:57
antibiotics Allergy Unknown Uncoded 01/02/24 13:57
Home Medications
aspirin 81 mg tablet,delayed release 81 mg PO DAILY Blood Clot Prevention/Tx 05/17/23
atorvastatin 40 mg tablet (Lipitor) 40 mg PO DAILY High Cholesterol 05/17/23
carvedilol 3.125 mg tablet (Coreg) 3.125 mg PO DAILY Heart Failure 05/17/23
divalproex 500 mg tablet,delayed release 500 mg PO QPM Neurological Condition 05/17/23
duloxetine 60 mg capsule,delayed release (Cymbalta) 60 mg PO DAILY Neurological Condition 05/17/23
folic acid 1 mg tablet 1 mg PO HS Supplement 05/17/23
levothyroxine 112 mcg tablet (Synthroid) 112 mcg PO DAILY Thyroid 05/17/23
magnesium oxide 400 mg PO DAILY Supplement 05/17/23
mirtazapine 15 mg tablet 15 mg PO HS Mental Health/Anxiety 05/17/23
vitamin B complex 1 tab PO DAILY Supplement 05/17/23
nifedipine 30 mg tablet,extended release 30 mg PO DAILY Blood pressure #30 tabs 05/22/23
tolterodine 2 mg tablet 2 mg PO HS Urinary Issue 12/08/23
tramadol 50 mg tablet 50 mg PO BIDPRN PRN moderate pain 12/08/23
metformin 500 mg tablet 500 mg PO BID #60 tabs 12/12/23
sodium bicarbonate 650 mg tablet 650 mg PO BID #60 tabs 12/12/23
acetaminophen 500 mg tablet (Tylenol Extra Strength) 1,000 mg PO Q6HPRN PRN MILD PAIN 01/02/24
Review of Systems
-
Constitutional: Reports No Symptoms
EENT: Reports No Symptoms
Respiratory: Reports No Symptoms
Cardiac: Reports No Symptoms
Abdomen/GI: Reports No Symptoms
: Reports No Symptoms
Musculoskeletal: Reports Edema (Bilateral lower extremities edema)
Skin: Reports No Symptoms
Neurological: Reports No Symptoms
Endocrine: Reports No Symptoms
Hematologic/Lymphatic: Reports No Symptoms
Psych: Reports No Symptoms
Physical Exam
Vital Signs
Vital Signs
Temp Pulse Resp BP Pulse Ox
98.8 F 78 20 139/47 98
01/02/24 13:54 01/02/24 20:00 01/02/24 20:00 01/02/24 20:00 01/02/24 20:00
Physical Exam
General: Well Developed, Well Nourished and No Apparent Distress
HEENT: NormoCephalic, Moist mucous membranes and Atraumatic
Respiratory: Clear
Cardiac: S1/S2 and Regular Rhythm; No Murmur or Rub
GI: Soft, Non Tender, Non Distended and Normal Bowel Sounds; No Organomegaly
Rectal: Deferred by Provider
Musculoskeletal: No Clubbing, No Cyanosis, No Edema and Other (Bilateral lower extremity edema)
Skin: No Rash
Neuro: AO x 3 and Nonfocal/grossly intact
Psych: Calm
Laboratory Results
-
01/02/24 15:25
01/02/24 15:25
Laboratory Results
Total Bilirubin 0.3 mg/dl (0.2-1.3) 01/02/24 15:25
AST 18 U/L (14-36) 01/02/24 15:25
ALT 15 U/L (0-35) 01/02/24 15:25
Alkaline Phosphatase 82 U/L (38-126) 01/02/24 15:25
Data Reviewed
-
Diagnostic Radiology: Report Reviewed by me
Lab Data: Labs Reviewed by me
Impression/Plan
-
#b/l LE peripheral edema
-BNP 7500
-chest x ray no No radiographic findings to suggest CHF
-peripheral vascular US with No evidence of deep venous thrombosis of the lower extremities bilaterally.
-IV Lasix once in ER
-Strict KYM
-Daily weight
-obtain ECHO
#generalized weakness from bilateral lower extremity edema
-PT/OT
#anemia of chronic disease
-hgb stable at 8.3
-no active bleeding
-ctm
# History of CKD 3
-Creatinine stable
# Asymptomatic urinary tract infection
#recurrent ESBL Klebsiella UTI
-Patient finished the course of ertapenem with previous admission
-pending urine culture
#CAD status post stents
-Continue aspirin
-Continue Coreg
Paroxysmal atrial fibrillation as per notes
-EKg with NSR
-coreg continued
#Hypothyroidism
-Continue levothyroxine
#Hyperlipidemia
-Continue statin
#Type 2 diabetes
-Holding metformin
-Sliding scale
-cho diet
#Essential hypertension
-Continue nifedipine
#Trigeminal neuralgia
-Continue Depakote
#Overactive bladder
-Continue tolterodine
#Chronic pain/fibromyalgia/depression
-Continue duloxetine, mirtazapine
-Continue tramadol
#Full code
#DVT prophylaxis�heparin
#Regular diet
--- NOTE | 2024-01-02 21:17 | W.PN.UPDATE ---
Update Note
Progress Note Update
Attending note. Patient seen and examined independently.
78 y/o woman with h/o:
PAF,
CKD,
cva,
htn,
hld,
dm,
anemia,
chronic pain
who lives with daughter, comes in with increased edema in legs. She was formerly on diuretic, (suspected to be lasix but they aren't sure the dose), but in the past month the lasix was stopped due to the kidney disease.
She has not had fever, chills, cp, sob, vomiting, diarrhea, abdominal pain, but she has pain in both legs. She has chronic anemia, ans has had recent UTIs with resistant organisms.
Exam: Comfortable, NAD
S1S2, no mrg
CTAB
Abd sift, nt, nd.
legs with 2+ edema
A/P:
1. Worsening leg edema, after lasix was stopped because of kidney issues. Lasix given in ED. She is already feeling better.
Keep legs elevated overnight
Eval renal function in am
Discuss case with renal in am to find best diuretic dose for discharge
Check echo in am
2. UA shows possible UTI, but no fever and does not feel sick.
No antibiotics at this time
Follow UC
Please see midlevel not for further details.
--- NOTE | 2024-01-02 22:00 | PTCARENOTE ---
Pt was received from ED at 2200. Pt too weak to stand up at this time. Pulled over to the unit bed. Pt is AAOx3, VSS. +1 edema noted on lower extremities, no difficulty breathing. Pt oriented to the room and the care plan.
[2024-01-02 22:57] LABS: Glucose - Point of Care 292 mg/dl (70-99)
[2024-01-02] MEDS: TYLENOL 650 MG PO (23:02)
[2024-01-02] MEDS: FOLVITE 1 MG PO (23:03)
[2024-01-02] MEDS: DETROL 2 MG PO (23:03)
[2024-01-02] MEDS: REMERON 15 MG PO (23:03)
[2024-01-03] VITALS (8 sets, daily range): BP systolic 122–176; BP diastolic 51–75; PULSE 68–71; O2SAT 98; BMI 25.0
[2024-01-03] MEDS: SYNTHROID 112 MCG PO (06:04)
[2024-01-03 07:31] LABS: Glucose - Point of Care 186 mg/dl (70-99)
[2024-01-03 07:40] LABS: Hematocrit 23.8 % (37.0-47.0); Hemoglobin 7.6 g/dL (12.0-16.0); Mean Corp Hgb Conc. 31.9 g/dL (33.0-37.0); Mean Corpuscular Hgb 27.1 pg (27.0-31.0); Mean Platelet Volume 11.1 fL (7.4-10.4); Platelet Count 340 10^3/uL (130-400); Red Cell Dist. Width 16.9 % (11.5-14.5); White Blood Cell Count 7.1 10^3/uL (4.8-10.8)
[2024-01-03 08:09] LABS: Carbon Dioxide 19 mmol/L (22-30); Estimated Creatinine Clearance 33 ml/min; eGFR 52.08
[2024-01-03 08:23] LABS: Blood Urea Nitrogen 42 mg/dl (7-17); Chloride 111 mmol/L (98-107); Glucose 174 mg/dl (70-99); Potassium 5.1 mmol/L (3.5-5.1); Sodium 139 mmol/L (135-145)
[2024-01-03] MEDS: COREG 3.125 MG PO (09:10)
[2024-01-03] MEDS: CYMBALTA DELAYED RELEASE 60 MG PO (09:10)
[2024-01-03] MEDS: ASPIR LOW (ENTERIC COATED) 81 MG PO (09:10)
[2024-01-03] MEDS: B COMPLEX w/VITAMIN C 1 CAPLET PO (09:10)
[2024-01-03] MEDS: HEPARIN 5000 UNITS SC ×2 (09:10→20:29)
[2024-01-03] MEDS: PROCARDIA XL (EXTENDED RELEASE) 30 MG PO (09:10)
[2024-01-03] MEDS: SODIUM BICARBONATE 650 MG PO ×2 (09:10→20:28)
[2024-01-03] MEDS: LIPITOR 40 MG PO (09:11)
[2024-01-03] MEDS: NOVOLOG FLEXPEN-LOW RESISTANCE 1 UNITS SC (09:30)
--- NOTE | 2024-01-03 10:08 | W.PN.HOSP.TC ---
Today's Communication/Plan
-
see A/P
Assessment / Plan
Assessment / Plan
HPI: 78 y/o F with h/o PAF, CKD, cva, htn, hld, dm, anemia presented with b/l LE edema for two weeks. Her Lasix was discontinued while she was here last time due to kidney injury three weeks ago. Her primary care called her on Wednesday, asked her to
call nephrology for diuretics. She couldn't get hold off them. She started having pain. She took her 's hctz, thinking that would help.
On arrival, she has b/l LE edema. BNP in 0's. Received a dose of Lasix.
A/P:
# BL LE peripheral edema may be related to acute on chronic CHF
# acute on chronic CHF unknown type
BNP 7500
chest x ray No radiographic findings to suggest CHF
BL LE US neg for DVT
s/p IV lasix 40 mg, cont IV lasix 20 mg daily
Strict KYM, Daily weight
Check ECHO
Card CS
# generalized weakness from bilateral lower extremity edema
PT/OT
# anemia of chronic disease
hgb at 7.6
no active bleeding
ctm
# History of CKD 3
Creatinine 1.1, at baseline
# Recurrent ESBL Klebsiella UTI
Patient completed course of ertapenem
Urine culture was sent again from admission given pt continues to complain of intermittent dysuria.
# CAD status post stents
Continue aspirin
Continue Coreg
# Paroxysmal atrial fibrillation per notes
Cont Coreg
# Hypothyroidism
Continue levothyroxine
# Hyperlipidemia
Continue statin
# Type 2 diabetes
Holding metformin
Sliding scale
carb control diet
# Essential hypertension
Continue nifedipine, Coreg
# Trigeminal neuralgia
Continue Depakote
# Overactive bladder
Continue tolterodine
#Chronic pain/fibromyalgia/depression
Continue duloxetine, mirtazapine
Continue tramadol
Full code
DVT prophylaxis�heparin
Anticipated Discharge: > 48 hours
Subjective/Interval History
-
Date of Service: January 03, 2024
Objective Data
-
Labs:
Laboratory Results
01/03/24
06:44
WBC 7.1
Hgb 7.6 L
Hct 23.8 L
Plt Count 340
Sodium 139
Potassium 5.1
Chloride 111 H
Carbon Dioxide 19 L
BUN 42 H
Creatinine 1.1 H
Glucose 174 H
Calcium 9.0
Vital Signs:
Vital Signs
Temp Pulse Resp BP Pulse Ox
36.5 C 70 18 139/56 98
01/03/24 07:46 01/03/24 07:46 01/03/24 07:46 01/03/24 07:46 01/03/24 07:46
I&O
01/02/24 01/03/24 01/04/24
06:59 06:59 06:59
Output Total 950 / 950
Balance -950 / -950
Review of Systems
-
All other systems: Reviewed and negative
Skin: Reports Other (LE edema)
Physical Exam
-
General: Well Developed, Well Nourished, No Apparent Distress, Comfortable and Appears Chronically Ill
HEENT: Normocephalic, Atraumatic and Moist Mucous Membranes
Respiratory: Clear to Auscultation and Non Labored Respirations; Negative Accessory Resp Muscle Use
Cardiac: Regular Rhythm and S1/S2
GI: Soft, Nontender and Nondistended
Musculoskeletal: No Clubbing, No Cyanosis, Edema, Right Lower Extrem (mild) and Edema, Left Lower Extrem (mild)
Skin: Warm and Dry
Neuro: Awake and Alert
Psych: Calm and Intact Judgement/Insight
Data Reviewed
-
Ultrasound: Report Reviewed by me
Labs: Labs Reviewed by me
[2024-01-03 11:23] LABS: Glucose - Point of Care 228 mg/dl (70-99)
--- NOTE | 2024-01-03 12:08 | CON.CAR ---
Consultation
Consultation Request
Date/Time Consultation Requested: January 03, 2024
Date/Time Consultation Performed: January 03, 2024
Requesting Provider: Hospitalist
Performing Provider: Gm yanez
Reason for Consultation: Lower extremity edema
Medical History
-
Chief Complaint: Leg swelling and heaviness
History of Present Illness:
78-year-old female with history of paroxysmal atrial fibrillation, CKD, CVA, hypertension, hyperlipidemia, diabetes and anemia who presents with worsening bilateral lower extremity edema for 2 weeks. She was recently here with acute kidney injury
and her Lasix had been stopped. She had subsequently done continue to gain weight. She tells me her dry weight is 113 to 15 pounds. Unfortunately, she did not did not get in touch with anyone to receive the Lasix prescription and thus came into
the emergency room. She tells me that today overall she is feeling well and has continued to urinate. She has no new complaints of chest pain or other arrhythmia.
Past Medical History
Past Medical History: Other (CAD with stents, left bundle branch block, paroxysmal atrial fibrillation, CVA, trigeminal neuralgia, sleep apnea, hypertension, hypothyroidism, hyperlipidemia, type 2 diabetes, depression, ESBL UTI, left shoulder
replacement complicated by septic shoulder, subdural hematoma, overactive bladder)
Past Surgical History: Other (Cholecystectomy Hysterectomy Left shoulder surgery left hip surgery Cardiac stent)
Social History
Tobacco: Non-Smoker
Alcohol: None
Drug: None
Personal:
Living: With Family
Family History
Family History: Reviewed & Not Pertinent
Allergies / Home Medications
Allergy/AdvReac Type Severity Reaction Status Date / Time
cephalexin Allergy Unknown Verified 01/02/24 13:57
ciprofloxacin Allergy Hives Verified 01/02/24 13:57
formaldehyde Allergy Shortness Verified 01/02/24 13:57
of Breath
Iodinated Contrast Media Allergy Hives Verified 01/02/24 13:57
metoprolol Allergy Itching Verified 01/02/24 13:57
Penicillins Allergy Unknown Verified 01/02/24 13:57
piperacillin [From Zosyn] Allergy Unknown Verified 01/02/24 13:57
pregabalin [From Lyrica] Allergy Hives Verified 01/02/24 13:57
shellfish derived Allergy Unknown Verified 01/02/24 13:57
Sngxwev-RHC-GoF Reductase Allergy Unknown Verified 01/02/24 13:57
Inhibitor
Sulfa (Sulfonamide Allergy Unknown Verified 01/02/24 13:57
Antibiotics)
tazobactam [From Zosyn] Allergy Unknown Verified 01/02/24 13:57
vancomycin Allergy Rash Verified 01/02/24 13:57
antibiotics Allergy Unknown Uncoded 01/02/24 13:57
�Medication �Instructions �Recorded �Confirmed �Type
aspirin 81 mg tablet,delayed 81 mg PO DAILY Blood Clot 05/17/23 01/02/24 History
release Prevention/Tx
atorvastatin 40 mg tablet (Lipitor) 40 mg PO DAILY High Cholesterol 05/17/23 01/02/24 History
carvedilol 3.125 mg tablet (Coreg) 3.125 mg PO DAILY Heart Failure 05/17/23 01/02/24 History
divalproex 500 mg tablet,delayed 500 mg PO QPM Neurological 05/17/23 01/02/24 History
release Condition
duloxetine 60 mg capsule,delayed 60 mg PO DAILY Neurological 05/17/23 01/02/24 History
release (Cymbalta) Condition
folic acid 1 mg tablet 1 mg PO HS Supplement 05/17/23 01/02/24 History
levothyroxine 112 mcg tablet 112 mcg PO DAILY Thyroid 05/17/23 01/02/24 History
(Synthroid)
magnesium oxide 400 mg PO DAILY Supplement 05/17/23 01/02/24 History
mirtazapine 15 mg tablet 15 mg PO HS Mental Health/Anxiety 05/17/23 01/02/24 History
vitamin B complex 1 tab PO DAILY Supplement 05/17/23 01/02/24 History
nifedipine 30 mg tablet,extended 30 mg PO DAILY Blood pressure #30 05/22/23 01/02/24 Rx
release tabs
tolterodine 2 mg tablet 2 mg PO HS Urinary Issue 12/08/23 01/02/24 History
tramadol 50 mg tablet 50 mg PO BIDPRN PRN moderate pain 12/08/23 01/02/24 History
metformin 500 mg tablet 500 mg PO BID #60 tabs 12/12/23 01/02/24 Rx
sodium bicarbonate 650 mg tablet 650 mg PO BID #60 tabs 12/12/23 01/02/24 Rx
acetaminophen 500 mg tablet 1,000 mg PO Q6HPRN PRN MILD PAIN 01/02/24 01/02/24 History
(Tylenol Extra Strength)
Review of Systems
-
All other systems: Negative unless noted
Physical Exam
Vital Signs
Temp Pulse Resp BP Pulse Ox
98.2 F 65 18 126/51 99
01/03/24 11:12 01/03/24 11:12 01/03/24 11:12 01/03/24 11:12 01/03/24 11:12
Lab Results
01/03/24 06:44
01/03/24 06:44
Iik-C-Wfkcwuvhybi Pept 7590 pg/ml 01/02/24 15:25
Physical Exam
General: Well Developed, Well Nourished and No Apparent Distress
HEENT: Normocephalic and Moist Mucous Membranes
Respiratory: Clear and Non Labored Respirations
Cardiac: S1/S2 and Regular Rhythm
GI: Soft
Musculoskeletal: No Clubbing and Other (compression stocking on)
Skin: Warm and Dry
Neuro: AO x 3
Psych: Calm
Impression / Plan
-
78-year-old female with history of paroxysmal AF not on anticoagulation for unclear reasons, heart failure unclear ejection fraction, hypertension, hyperlipidemia, CKD who is here today for acute on chronic heart failure exacerbation.
Heart failure exacerbation acute on chronic unknown EF
-Lasix IV diuresis twice daily K>4 mag > 2
-Update echocardiogram
-Continue carvedilol
-Likely add SGLT2 inhibitor if okay from case management on cost
- unclear why not on more GDMT
PAF ?
-Currently in sinus rhythm unclear why not on anticoagulation obtain records
CAD status post stents
-Continue aspirin and atorvastatin as well as carvedilol
Hypertension
-She is on nifedipine would consider valsartan or Arni depending on echo
Hyperlipidemia
-Atorvastatin
Anemia
CKD
Hypothyroidism
Type 2 diabetes
Trigeminal neuralgia
Overactive bladder
Fibromyalgia/depression
Data Reviewed
-
EKG: Tracing Personally Visualized and interpreted (sr)
Labs: Labs Reviewed by me
--- NOTE | 2024-01-03 12:40 | PTOTSP ---
ST Acute Care Evaluation
Pt presents with fairly functional oropharyngeal parameters for safe PO intake of all solids and liquids. Pt with symptoms consistent with GERD and/or esophageal dysfunction that should be worked-up further by GI.
Recommendations:
- Continue with regular solids, thin liquids, and meds as tolerated.
- General aspiration precautions; reflux precautions: HOB upright for all PO intake and for at least 60 minutes after PO intake; reduce distractions during intake.
- Consider GI consult given pt's complaints of GERD without official dx or prescribed tx as well as reported difficulty/coughing/choking with solids more than liquids.
- TITLE INSPECTOR will continue to f/u while in house to ensure pt is consuming the safest and least restrictive PO diet and to determine whether pt would benefit from an instrumental swallow study.
[2024-01-03] MEDS: NOVOLOG FLEXPEN-LOW RESISTANCE 2 UNITS SC ×2 (13:04→16:28)
[2024-01-03] MEDS: LASIX 20 MG IV (13:08)
--- NOTE | 2024-01-03 14:16 | CON.GI ---
Consultation
-
Date/Time Consultation Requested: 01/03/24
Date/Time Consultation Performed: 01/03/24
Requesting Provider: Dr Munoz
Performing Provider: Dr Jung
Reason for Consultation: dysphagia
Medical History
Chief Complaint / HPI
Chief Complaint: LE swelling
History of Present Illness:
Eusebia is a 78yo W with h/o CAD s/p stent, afib, CVA and JAN who was admitted with increasing LE swelling with elevated BNP in 7000s. She is currently being treated for CHF. GI consulted after speech evaluation was done with symptoms of
intermittent solid food dysphagia and undiagnosed reflux. She tells me that once per month she will has sensation of solid food not going down quickly. If she eats slowly this does not occur. There is also some reflux and heartburn for which she
uses her 's nexium with improvement. She does not use chronic NSAIDs and has no odynophagia, abd pain, nausea/vomiting, diarrhea, constipation blood in stools or wt loss. There has been some wt gain. She has never had EGD and last
colonoscopy was over 10yrs ago. She also has chronic anemia.
Past Medical History
Past Medical History: Other (JAN, CAD s/p stent AR pAfib, Chronic anemia, HTN, HL hypothyroidism, DM, depression overactive bladder CVA)
Past Surgical History: Cholecystectomy and Other (L hip surgery, cardiac stent, hysterectomy)
Social History
Tobacco: Non-Smoker
Alcohol: None
Drug: None
Personal:
Living: With Family
Employment: Not Employed
Family History
Family History: Other (No CRC)
Allergies / Home Medications
Allergy/AdvReac Type Severity Reaction Status Date / Time
cephalexin Allergy Unknown Verified 01/02/24 13:57
ciprofloxacin Allergy Hives Verified 01/02/24 13:57
formaldehyde Allergy Shortness Verified 01/02/24 13:57
of Breath
Iodinated Contrast Media Allergy Hives Verified 01/02/24 13:57
metoprolol Allergy Itching Verified 01/02/24 13:57
Penicillins Allergy Unknown Verified 01/02/24 13:57
piperacillin [From Zosyn] Allergy Unknown Verified 01/02/24 13:57
pregabalin [From Lyrica] Allergy Hives Verified 01/02/24 13:57
shellfish derived Allergy Unknown Verified 01/02/24 13:57
Mispwmw-WHK-PcW Reductase Allergy Unknown Verified 01/02/24 13:57
Inhibitor
Sulfa (Sulfonamide Allergy Unknown Verified 01/02/24 13:57
Antibiotics)
tazobactam [From Zosyn] Allergy Unknown Verified 01/02/24 13:57
vancomycin Allergy Rash Verified 01/02/24 13:57
antibiotics Allergy Unknown Uncoded 01/02/24 13:57
�Medication �Instructions �Recorded
aspirin 81 mg tablet,delayed 81 mg PO DAILY Blood Clot 05/17/23
release Prevention/Tx
atorvastatin 40 mg tablet (Lipitor) 40 mg PO DAILY High Cholesterol 05/17/23
carvedilol 3.125 mg tablet (Coreg) 3.125 mg PO DAILY Heart Failure 05/17/23
divalproex 500 mg tablet,delayed 500 mg PO QPM Neurological 05/17/23
release Condition
duloxetine 60 mg capsule,delayed 60 mg PO DAILY Neurological 05/17/23
release (Cymbalta) Condition
folic acid 1 mg tablet 1 mg PO HS Supplement 05/17/23
levothyroxine 112 mcg tablet 112 mcg PO DAILY Thyroid 05/17/23
(Synthroid)
magnesium oxide 400 mg PO DAILY Supplement 05/17/23
mirtazapine 15 mg tablet 15 mg PO HS Mental Health/Anxiety 05/17/23
vitamin B complex 1 tab PO DAILY Supplement 05/17/23
nifedipine 30 mg tablet,extended 30 mg PO DAILY Blood pressure #30 05/22/23
release tabs
tolterodine 2 mg tablet 2 mg PO HS Urinary Issue 12/08/23
tramadol 50 mg tablet 50 mg PO BIDPRN PRN moderate pain 12/08/23
metformin 500 mg tablet 500 mg PO BID #60 tabs 12/12/23
sodium bicarbonate 650 mg tablet 650 mg PO BID #60 tabs 12/12/23
acetaminophen 500 mg tablet 1,000 mg PO Q6HPRN PRN MILD PAIN 01/02/24
(Tylenol Extra Strength)
Review of Systems
-
All other systems: A 12 pt ROS was Negative except as stated above in HPI
Vital Signs
Temp Pulse Resp BP Pulse Ox
98.2 F 65 18 126/51 99
01/03/24 11:12 01/03/24 11:12 01/03/24 11:12 01/03/24 11:12 01/03/24 11:12
Physical Exam
Exam
GEN: No acute distress, conversant, pleasant
HEENT: anicteric, extraocular movements intact, clear oropharynx without exudates
GI: soft, obese, distended, not tender to palpation, normal active bowel sounds, no hepatosplenomegaly
EXT: warm, well perfused, 2+ edema bilaterally
NEURO: AAOx3, non-focal
Results
WBC 7.1 10^3/uL (4.8-10.8) 01/03/24 06:44
Hgb 7.6 g/dL (12.0-16.0) L 01/03/24 06:44
Hct 23.8 % (37.0-47.0) L 01/03/24 06:44
MCV 85.0 fL (81.0-99.0) 01/03/24 06:44
Plt Count 340 10^3/uL (130-400) 01/03/24 06:44
Absolute Neuts (auto) 3.8 10^3/uL (1.4-6.5) 01/02/24 15:25
Sodium 139 mmol/L (135-145) 01/03/24 06:44
Potassium 5.1 mmol/L (3.5-5.1) 01/03/24 06:44
Chloride 111 mmol/L (98-107) H 01/03/24 06:44
Carbon Dioxide 19 mmol/L (22-30) L 01/03/24 06:44
BUN 42 mg/dl (7-17) H 01/03/24 06:44
Creatinine 1.1 mg/dL (0.6-1.0) H 01/03/24 06:44
Calcium 9.0 mg/dl (8.4-10.2) 01/03/24 06:44
Total Bilirubin 0.3 mg/dl (0.2-1.3) 01/02/24 15:25
AST 18 U/L (14-36) 01/02/24 15:25
ALT 15 U/L (0-35) 01/02/24 15:25
Alkaline Phosphatase 82 U/L (38-126) 01/02/24 15:25
Diagnostic Image Results:
CXR normal.
Prior GI Procedures:
EGD: none prior
Colonoscopy: >10yr ago records not available to me
Assessment / Plan
-
Eusebia is a 78yo W with h/o CAD s/p stent, afib, CVA and JAN who was admitted with increasing LE swelling with elevated BNP in 7000s. She is currently being treated for CHF. GI consulted after speech evaluation was done with symptoms of
intermittent solid food dysphagia and undiagnosed reflux.
Impression
- Solid dysphagia once monthly
- GERD new diagnosis
- Chronic anemia
- CHF exacerbation
- LE swelling
- Afib
- CAD s/p stent
- JAN
- CVA
- DM
- CKD
- Overactive bladder
Recommendations
- She is tolerating diet
- Dysphagia is once monthly. May be esophagitis or presbyesophagus. Recommend Protonix 40mg daily basis
- IV iron given deficient in early December 2023 labs
- IV iron x1 now
- May need to consider EGD/colonoscopy to evaluate cause of iron def anemia however that should be done outpatient basis when not in CHF exacerbation.
At this juncture GI will sign off please call for questions
Data Reviewed
-
Radiology: Report Reviewed by me
-
-
Thank you for consultation and allowing me to participate in the patient's care. Please call the educational/development assistant GI physician during the after hours with any questions or concerns.
[2024-01-03] MEDS: FERRLECIT 110 MG IV (15:45)
[2024-01-03] MEDS: PROTONIX 40 MG PO (16:03)
[2024-01-03 16:18] LABS: Folate > 20.0 ng/ml (2.76-20); Vitamin B12 528 pg/ml (239-931)
[2024-01-03 16:23] LABS: Glucose - Point of Care 228 mg/dl (70-99)
[2024-01-03] MEDS: DEPAKOTE (12 HR RELEASE) 500 MG PO (18:07)
[2024-01-03] MEDS: DETROL 2 MG PO (20:28)
[2024-01-03] MEDS: REMERON 15 MG PO (20:28)
[2024-01-03] MEDS: FOLVITE 1 MG PO (20:29)
[2024-01-03 21:27] LABS: Glucose - Point of Care 211 mg/dl (70-99)
[2024-01-03] MEDS: ULTRAM 50 MG PO (21:28)
[2024-01-04 00:30] LABS: Hepatitis C Antibody Negative (Negative)
[2024-01-04 03:14] VITALS: BP 152/79
[2024-01-04] MEDS: SYNTHROID 112 MCG PO (05:08)
[2024-01-04] MEDS: ULTRAM 50 MG PO ×2 (05:08→23:05)
[2024-01-04 06:00] VITALS: BMI 25.2
[2024-01-04 07:00] VITALS: BP 130/57
[2024-01-04 07:42] LABS: Hematocrit 27.3 % (37.0-47.0); Hemoglobin 8.6 g/dL (12.0-16.0); Mean Corp Hgb Conc. 31.5 g/dL (33.0-37.0); Mean Corpuscular Volume 85.8 fL (81.0-99.0); Mean Platelet Volume 10.6 fL (7.4-10.4); Platelet Count 338 10^3/uL (130-400); Red Blood Cell Count 3.18 10^6/uL (4.20-5.40); Red Cell Dist. Width 16.5 % (11.5-14.5); White Blood Cell Count 7.7 10^3/uL (4.8-10.8)
[2024-01-04 07:48] LABS: Glucose - Point of Care 195 mg/dl (70-99)
[2024-01-04 08:03] LABS: Blood Urea Nitrogen 41 mg/dl (7-17); Calcium 9.1 mg/dl (8.4-10.2); Carbon Dioxide 23 mmol/L (22-30); Chloride 109 mmol/L (98-107); Estimated Creatinine Clearance 36 ml/min; Glucose 184 mg/dl (70-99); Magnesium 1.8 mg/dl (1.6-2.3); Potassium 4.8 mmol/L (3.5-5.1); Sodium 139 mmol/L (135-145); eGFR 58.39
--- NOTE | 2024-01-04 08:35 | W.PN.CD ---
Today's Communication / Plan
-
Continue IV diuresis
Impression / Plan
-
78-year-old female with history of paroxysmal AF? not on anticoagulation for unclear reasons, heart failure unclear ejection fraction, hypertension, hyperlipidemia, CKD who is here today for acute on chronic heart failure exacerbation.
Heart failure exacerbation acute on chronic unknown EF
-Lasix IV diuresis twice daily K>4 mag > 2, dry weight ~115 lbs
-Update echocardiogram
-Continue carvedilol
-Likely add SGLT2 inhibitor if okay from case management on cost
PAF currently in sinus
- Not on AC given frequent falls and unsteady gait
CAD status post stents
-Continue aspirin and atorvastatin as well as carvedilol
Hypertension
-She is on nifedipine would consider valsartan or Arni depending on echo
Hyperlipidemia
-Atorvastatin
Anemia
CKD
Hypothyroidism
Type 2 diabetes
Trigeminal neuralgia
Overactive bladder
Fibromyalgia/depression
Physical Exam
Vital Signs/Labs
Vital Signs
Temp Pulse Resp BP Pulse Ox
98.0 F 72 14 130/57 95
01/04/24 07:00 01/04/24 07:00 01/04/24 07:00 01/04/24 07:00 01/04/24 07:00
01/03/24 01/04/24 01/05/24
06:59 06:59 06:59
Actual Weight 132 lb 133 lb 3 oz
01/04/24 07:22
01/04/24 07:22
Magnesium 1.8 mg/dl (1.6-2.3) 01/04/24 07:22
01/02/24
15:25
[id number]-I-Kjmnidqmbgb Pept 7590
Physical Exam
Constitutional: No acute distress
EENT: Anicteric
Cardiovascular: Rhythm & rate is regular and Pedal edema present (TEDs on trace LE edema )
Respiratory: Respiratory effort normal and Lungs clear to auscul.
GI: Soft
Neuro/Psych: AO x 3
Data Reviewed
-
Date of Service: January 04, 2024
EKG: Tracing Personally Visualized and interpreted (sr)
Labs: Labs Reviewed by me
[2024-01-04] MEDS: PROCARDIA XL (EXTENDED RELEASE) 30 MG PO (08:40)
[2024-01-04] MEDS: CYMBALTA DELAYED RELEASE 60 MG PO (08:40)
[2024-01-04] MEDS: ASPIR LOW (ENTERIC COATED) 81 MG PO (08:40)
[2024-01-04] MEDS: PROTONIX 40 MG PO (08:40)
[2024-01-04] MEDS: LASIX 20 MG IV (08:40)
[2024-01-04] MEDS: HEPARIN 5000 UNITS SC ×2 (08:40→20:17)
[2024-01-04] MEDS: LIPITOR 40 MG PO (08:40)
[2024-01-04] MEDS: SODIUM BICARBONATE 650 MG PO ×2 (08:40→20:17)
[2024-01-04] MEDS: COREG 3.125 MG PO (08:40)
[2024-01-04] MEDS: B COMPLEX w/VITAMIN C 1 CAPLET PO (08:40)
[2024-01-04] MEDS: NOVOLOG FLEXPEN-LOW RESISTANCE 1 UNITS SC (08:41)
[2024-01-04 09:00] VITALS: BMI 23.9
--- NOTE | 2024-01-04 09:40 | W.PN.HOSP.TC ---
Today's Communication/Plan
-
see A/P
Assessment / Plan
Assessment / Plan
HPI: 78 y/o F with h/o PAF, CKD, cva, htn, hld, dm, anemia presented with b/l LE edema for two weeks. Her Lasix was discontinued while she was here last time due to kidney injury three weeks ago. Her primary care called her on Wednesday, asked her to
call nephrology for diuretics. She couldn't get hold off them. She started having pain. She took her 's hctz, thinking that would help.
On arrival, she has b/l LE edema. BNP in 0's. Received a dose of Lasix.
A/P:
# BL LE peripheral edema may be related to acute on chronic CHF
# acute on chronic CHF unknown type
BNP 7500
chest x ray No radiographic findings to suggest CHF
BL LE US neg for DVT
s/p IV lasix 40 mg, cont IV lasix 20 mg daily. Strict KYM, Daily weight
Follow echo report
Con MANAGER OF ENTERPRISE Coreg
Card on board
# generalized weakness from bilateral lower extremity edema
PT/OT HH
# anemia of chronic disease
hgb at 8.6
no active bleeding
ctm
# History of CKD 3
Creatinine 1.0 today, at baseline
# Recurrent ESBL Klebsiella UTI
Patient completed course of ertapenem
Urine culture was sent again from admission given pt continues to complain of intermittent dysuria, culture noted 100,000 CFU/Mixed meagan present, probable contamination
Start Pyridium for dysuria
# CAD status post stents
Continue aspirin
Continue Coreg
# Paroxysmal atrial fibrillation per notes
Cont Coreg
# Hypothyroidism
Continue levothyroxine
# Hyperlipidemia
Continue statin
# Type 2 diabetes
Holding metformin
Sliding scale
carb control diet
# Essential hypertension
Continue nifedipine, Coreg
# Trigeminal neuralgia
Continue Depakote
# Overactive bladder
Continue tolterodine
start Pyridium as stated above
# Chronic pain/fibromyalgia/depression
Continue duloxetine, mirtazapine
Continue tramadol
# Cough following diet
pt seen by [facility], recc GI consult given pt's complaints of GERD without official dx or prescribed tx, as well as reported difficulty/coughing/choking with solids more than liquids.
GI consulted
Full code
DVT prophylaxis�heparin SQ
Anticipated Discharge: 24 - 48 hours
Subjective/Interval History
-
Date of Service: January 04, 2024
Objective Data
-
Labs:
Laboratory Results
01/04/24
07:22
WBC 7.7
Hgb 8.6 L
Hct 27.3 L
Plt Count 338
Sodium 139
Potassium 4.8
Chloride 109 H
Carbon Dioxide 23
BUN 41 H
Creatinine 1.0
Glucose 184 H
Calcium 9.1
Vital Signs:
Vital Signs
Temp Pulse Resp BP Pulse Ox
36.7 C 72 14 130/57 95
01/04/24 07:00 01/04/24 07:00 01/04/24 07:00 01/04/24 07:00 01/04/24 07:00
I&O
01/03/24 01/04/24 01/05/24
06:59 06:59 06:59
Intake Total 830 / 830
Output Total 950 / 950 400 / 400
Balance -950 / -950 430 / 430
Review of Systems
-
All other systems: Reviewed and negative
Genitourinary: Reports Other (occasional dysuria)
Skin: Reports Other (LE edema, L > R)
Physical Exam
-
General: Well Developed, Well Nourished, No Apparent Distress, Comfortable and Appears Chronically Ill
HEENT: Normocephalic, Atraumatic and Moist Mucous Membranes
Respiratory: Clear to Auscultation and Non Labored Respirations; Negative Accessory Resp Muscle Use
Cardiac: Regular Rhythm and S1/S2
GI: Soft, Nontender and Nondistended
Musculoskeletal: No Clubbing, No Cyanosis and Edema, Left Lower Extrem (mild)
Skin: Warm and Dry
Neuro: Awake and Alert
Psych: Calm and Intact Judgement/Insight
Data Reviewed
-
Ultrasound: Report Reviewed by me
Labs: Labs Reviewed by me
--- NOTE | 2024-01-04 09:41 | CM ---
Asked to check costs for Jardiance, Farxiga 10 mg and Entresto.
Per [facility], all 3 mediations are $47 per month.
[2024-01-04 11:00] VITALS: BP 105/54
[2024-01-04 11:30] LABS: Glucose - Point of Care 273 mg/dl (70-99)
[2024-01-04] MEDS: NOVOLOG FLEXPEN-LOW RESISTANCE 3 UNITS SC (12:01)
[2024-01-04] MEDS: Pyridium 100 MG PO ×2 (13:02→23:01)
[2024-01-04 15:00] VITALS: BP 119/44
--- NOTE | 2024-01-04 16:25 | CM ---
IA completed.
Patient lives with spouse abilio 2 story home with 3 steps to enter (has ramps)
patient ambulates with a RW in the home and WC to get down ramps to the car.
Patient independent prior to admission.
Patient current with [facility], will place referral for [place].
Patient interested in private caregivers, will provide resources in am.
PCP: Dr Narayanan
Pharmacy: [facility]
Plan: home with VN
[2024-01-04 16:44] LABS: Glucose - Point of Care 307 mg/dl (70-99)
[2024-01-04] MEDS: Pyridium PO (16:48)
[2024-01-04] MEDS: DEPAKOTE (12 HR RELEASE) 500 MG PO (17:05)
[2024-01-04] MEDS: NOVOLOG FLEXPEN-LOW RESISTANCE 4 UNITS SC (17:06)
[2024-01-04 21:24] LABS: Glucose - Point of Care 240 mg/dl (70-99)
[2024-01-04] MEDS: REMERON 15 MG PO (22:58)
[2024-01-04] MEDS: FOLVITE 1 MG PO (22:58)
[2024-01-04] MEDS: DETROL 2 MG PO (22:59)
[2024-01-04 23:06] VITALS: BP 156/68
[2024-01-05] MEDS: TYLENOL 650 MG PO (00:08)
[2024-01-05] MEDS: TUMS 1 TABLET PO (01:17)
[2024-01-05 03:34] VITALS: BP 106/50
[2024-01-05] MEDS: ULTRAM 50 MG PO (04:13)
[2024-01-05] MEDS: SYNTHROID 112 MCG PO (04:13)
[2024-01-05 06:39] LABS: Hematocrit 27.7 % (37.0-47.0); Hemoglobin 8.9 g/dL (12.0-16.0); Mean Corp Hgb Conc. 32.1 g/dL (33.0-37.0); Mean Corpuscular Hgb 27.1 pg (27.0-31.0); Mean Corpuscular Volume 84.2 fL (81.0-99.0); Mean Platelet Volume 10.6 fL (7.4-10.4); Platelet Count 389 10^3/uL (130-400); Red Blood Cell Count 3.29 10^6/uL (4.20-5.40); Red Cell Dist. Width 16.9 % (11.5-14.5); White Blood Cell Count 14.3 10^3/uL (4.8-10.8)
[2024-01-05 07:10] LABS: Blood Urea Nitrogen 51 mg/dl (7-17); Calcium 9.5 mg/dl (8.4-10.2); Carbon Dioxide 19 mmol/L (22-30); Chloride 101 mmol/L (98-107); Estimated Creatinine Clearance 28 ml/min; Glucose 355 mg/dl (70-99); Magnesium 1.9 mg/dl (1.6-2.3); Potassium 5.9 mmol/L (3.5-5.1); Sodium 134 mmol/L (135-145); eGFR 42.62
[2024-01-05 07:45] VITALS: BP 105/60
--- NOTE | 2024-01-05 07:46 | W.PN.CD ---
Today's Communication / Plan
-
Repeat labs
awaitnig standing weight
Cr up holding lasix until labs come back
Abdominal pain with worsening leukocytosis infection? intraabdominal process?
Impression / Plan
-
78-year-old female with history of paroxysmal AF? not on anticoagulation for unclear reasons, heart failure unclear ejection fraction, hypertension, hyperlipidemia, CKD who is here today for acute on chronic heart failure exacerbation.
UNfortunately had abdominal pain overnight and now with increasing leukocytosis.
acute on chronic HFpEF
- holding diuresis given incresed Cr and hyperkalemia awaiting repeat labs
-Lasix IV diuresis twice daily K>4 mag > 2, dry weight ~115 lbs
-TTE below
-Continue carvedilol
-SGLT2i $47/month, will discuss and initiate once kidney fxn stable
AR with hyperkalemia K 5.9 repeat labs hold diuresis for now
- Cr 1.3 today will monitor
PAF currently in sinus
- Not on AC given frequent falls and unsteady gait
CAD status post stents
-Continue aspirin and atorvastatin as well as carvedilol
Hypertension
-She is on nifedipine would consider valsartan or Arni depending on echo
Hyperlipidemia
-Atorvastatin
Anemia
CKD
Hypothyroidism
Type 2 diabetes
Trigeminal neuralgia
Overactive bladder
Fibromyalgia/depression
TTE: CONCLUSIONS
Normal biventricular size and systolic function without regional wall motion
abnormality.
Aortic sclerosis.
Dense mitral annular calcification of the posterior annulus.
No prior study available for comparison.
Subjective: Abdominal pain overnight, worsening leukocytosis, infection? intrabdominal process?
Physical Exam
Vital Signs/Labs
Vital Signs
Temp Pulse Resp BP Pulse Ox
98.4 F 96 18 106/50 96
01/05/24 03:34 01/05/24 03:34 01/05/24 03:34 01/05/24 03:34 01/05/24 03:34
01/04/24 01/05/24 01/06/24
06:59 06:59 06:59
Actual Weight 133 lb 3 oz 126 lb 6.4 oz
01/05/24 06:08
01/05/24 06:08
Magnesium 1.9 mg/dl (1.6-2.3) 01/05/24 06:08
01/02/24
15:25
Epk-[id number]-Zncbrmxvhfm Pept 7590
Physical Exam
Constitutional: Other (uncomfortable )
Cardiovascular: Rhythm & rate is regular and Pedal edema is absent
Respiratory: Respiratory effort normal and Lungs clear to auscul.
GI: Soft and Abdomen is tender
Neuro/Psych: AO x 3
Data Reviewed
-
Date of Service: January 05, 2024
EKG: Tracing Personally Visualized and interpreted (sr)
Echo: Report Reviewed by me
Labs: Labs Reviewed by me
Total Time Spent with Patient (in minutes): discussed findings with hospitalist
[2024-01-05 07:53] LABS: Glucose - Point of Care 399 mg/dl (70-99)
[2024-01-05] MEDS: NOVOLOG FLEXPEN-LOW RESISTANCE 5 UNITS SC (08:28)
--- NOTE | 2024-01-05 08:53 | W.PN.HOSP.TC ---
Today's Communication/Plan
-
see AP
Assessment / Plan
Assessment / Plan
HPI: 78 y/o F with h/o PAF, CKD, cva, htn, hld, dm, anemia presented with b/l LE edema for two weeks. Her Lasix was discontinued while she was here last time due to kidney injury three weeks ago. Her primary care called her on Wednesday, asked her to
call nephrology for diuretics. She couldn't get hold off them. She started having pain. She took her 's hctz, thinking that would help.
On arrival, she has b/l LE edema. BNP in 0's. Received a dose of Lasix.
A/P:
# BL LE peripheral edema related to acute on chronic CHF
# acute on chronic diastolic heart failure
BNP 7500
chest x ray No radiographic findings to suggest CHF
BL LE US neg for DVT
s/p IV lasix 40 mg, cont IV lasix 20 mg daily. Strict KYM, Daily weight
Echo unrevealing: Normal biventricular size and systolic function without regional wall motion abnormality.
Cont PIPING BLOCKER Coreg
Card on board
# New onset diffuse abdominal pain, started overnight of 01/[address] AP with PO contrast
start empiric IV PPI BID
Acute pain control with low dose IV Morphine
GI reconsult
# AR on CKD stage 3
SCr 1.3 from 1.0 (baseline)
Holding Lasix for now
Check repeat BMP today
# Hyperkalemia
K level 5.9
check repeat BMP
# anemia of chronic disease
hgb at 8.9
no active bleeding
ctm
# Recurrent ESBL Klebsiella UTI
Patient completed course of ertapenem
Urine culture was sent again from admission given pt continues to complain of intermittent dysuria, culture noted 100,000 CFU/Mixed meagan present, probable contamination
Pt was started with Pyridium for intermittent dysuria , hold for now
# CAD status post stents
Continue aspirin
Continue Coreg
# Paroxysmal atrial fibrillation per notes
Cont Coreg
# Hypothyroidism
Continue levothyroxine
# Hyperlipidemia
Continue statin
# Type 2 diabetes
Holding metformin
Sliding scale
carb control diet
# Essential hypertension
Continue nifedipine, Coreg with holding parameter
# Trigeminal neuralgia
Continue Depakote
# Overactive bladder
Continue tolterodine
start Pyridium as stated above
# Chronic pain/fibromyalgia/depression
Continue duloxetine, mirtazapine
Continue tramadol
# Cough following diet
pt seen by [facility], recc GI consult given pt's complaints of GERD without official dx or prescribed tx, as well as reported difficulty/coughing/choking with solids more than liquids.
GI consulted
Full code
DVT prophylaxis�heparin SQ
DW RN
DW Card
DW GI
acute Mx of acute abdominal pain
Anticipated Discharge: > 48 hours
Subjective/Interval History
-
Date of Service: January 05, 2024
Objective Data
-
Labs:
Laboratory Results
01/05/24 01/05/24
06:08 08:30
WBC 14.3 H
Hgb 8.9 L
Hct 27.7 L
Plt Count 389
Sodium 134 L Pending
Potassium 5.9 H Pending
Chloride 101 Pending
Carbon Dioxide 19 L Pending
BUN 51 H Pending
Creatinine 1.3 H Pending
Glucose 355 H Pending
Calcium 9.5 Pending
Vital Signs:
Vital Signs
Temp Pulse Resp BP Pulse Ox
36.6 C 92 18 105/60 96
01/05/24 07:45 01/05/24 07:45 01/05/24 07:45 01/05/24 07:45 01/05/24 07:45
I&O
01/04/24 01/05/24 01/06/24
06:59 06:59 06:59
Intake Total 830 / 830 900 / 900
Output Total 400 / 400 400 / 400
Balance 430 / 430 500 / 500
Review of Systems
-
Abdomen/GI: Reports Abdominal Pain (anterior, diffuse)
Physical Exam
-
General: Well Developed, Well Nourished, No Apparent Distress and Pain
HEENT: Normocephalic, Atraumatic and Moist Mucous Membranes
Respiratory: Clear to Auscultation and Non Labored Respirations; Negative Accessory Resp Muscle Use
Cardiac: Regular Rhythm and S1/S2
GI: Soft, Nondistended, Normal Bowel Sounds and Tender (anteriorly, diffuse)
Musculoskeletal: No Clubbing and No Cyanosis
Skin: Warm and Dry
Neuro: Awake and Alert
Psych: Calm and Intact Judgement/Insight
Data Reviewed
-
Labs: Labs Reviewed by me
[2024-01-05] MEDS: B COMPLEX w/VITAMIN C PO (09:02)
[2024-01-05] MEDS: CYMBALTA DELAYED RELEASE PO (09:02)
[2024-01-05] MEDS: ASPIR LOW (ENTERIC COATED) PO (09:02)
[2024-01-05] MEDS: Pyridium PO (09:03)
[2024-01-05] MEDS: PROCARDIA XL (EXTENDED RELEASE) PO (09:03)
[2024-01-05] MEDS: PROTONIX PO (09:03)
[2024-01-05] MEDS: LIPITOR PO (09:03)
[2024-01-05] MEDS: LASIX IV (09:03)
[2024-01-05] MEDS: COREG PO (09:04)
[2024-01-05] MEDS: SODIUM BICARBONATE PO (09:04)
[2024-01-05 09:07] LABS: Glucose - Point of Care 372 mg/dl (70-99)
[2024-01-05 09:11] LABS: Blood Urea Nitrogen 53 mg/dl (7-17); Calcium 9.7 mg/dl (8.4-10.2); Carbon Dioxide 19 mmol/L (22-30); Chloride 102 mmol/L (98-107); Estimated Creatinine Clearance 28 ml/min; Glucose 363 mg/dl (70-99); Sodium 133 mmol/L (135-145); eGFR 42.62
[2024-01-05] MEDS: PROTONIX IV 40 MG IV ×2 (09:31→20:09)
[2024-01-05] MEDS: HEPARIN 5000 UNITS SC ×2 (09:31→20:08)
[2024-01-05] MEDS: NSS (PRESERVATIVE FREE) 10 ML IV ×2 (09:31→20:10)
[2024-01-05] MEDS: OMNIPAQUE 50 ML PO (09:38)
[2024-01-05 10:17] LABS: ALT (SGPT) 24 U/L (0-35); AST (SGOT) 100 U/L (14-36); Albumin 3.5 g/dl (3.5-5.0); Alkaline Phosphatase 86 U/L (38-126); Direct Bilirubin 0.2 mg/dl (0.0-0.4); Lipase 74 U/L (23-300); Total Bilirubin 0.2 mg/dl (0.2-1.3); Total Protein 6.7 g/dl (6.3-8.2)
[2024-01-05] MEDS: MORPHINE SULFATE 1 MG IV ×3 (10:49→21:34)
[2024-01-05 11:00] VITALS: BP 127/71
--- NOTE | 2024-01-05 11:07 | W.PN.GI.CBS2 ---
Addendum entered and electronically signed by Allie Gomez MD 01/05/24 13:54:
Pain could also be related to peptic ulcer disease although I think this is less likely, continue pantoprazole twice daily and if symptoms persist or worsen may also need endoscopy sooner
Addendum entered and electronically signed by Allie Gomez MD 01/05/24 13:52:
I saw and examined the patient.
The CLOCK AND WATCH HANDS PAINTER's note was reviewed and I agree with the note.
Comment: We were reconsulted for abdominal pain which started last night she points more to the epigastric and left side of her abdomen but also complains of diffuse abdominal pain. She says she had a bowel movement yesterday no rectal bleeding or
melena was reported. No nausea or vomiting. Noted results of her CAT scan as below possible etiology could be underlying constipation. Will start her on MiraLAX twice daily and senna at bedtime as needed. If pain persists may need an MRA to rule
out mesenteric angina/ischemia she had a CT without contrast because of her underlying renal insufficiency. Will restart her on clear liquids and advance as tolerated. She will need an eventual endoscopy and colonoscopy for also chronic iron
deficiency anemia which we can schedule as outpatient once her cardiac and pulmonary status have improved.
01/05/24 Ct abd/pelvis
IMPRESSION: Small bilateral pleural effusions.
Tiny pericardial effusion.
Prior cholecystectomy.
Enlarged newly calcified right adrenal mass. . Repeat MRI examination recommended.
Findings consistent with prior benign granulomatous disease.
Pancreatic calcifications suggesting chronic pancreatitis.
Moderate fecal material throughout the colon.
Moderate diffuse bladder wall thickening. This can be seen with cystitis or bladder outlet obstruction.
Original Note:
Today's Communication / Plan
-
-new abdominal pain overnight rates 22/[address] now currently finishing oral contrast
hx similar pain several years ago etiology unclear
cont IV PPI
pain control per hospitalist
s/p Ferrlecit for iron deficiency
OP follow up for EGD/colon to eval for PASTORA
Assessment / Plan
-
Eusebia is a 78yo W with h/o CAD s/p stent, afib, CVA and JAN who was admitted with increasing LE swelling with elevated BNP in . She is currently being treated for CHF. GI consulted 01/02 for dysphagia/reflux with also noted chronic Iron
deficiency anemia. She was recommended OP follow up for EGD/colon. Now asked to reassess for abdominal pain developed overnight.
Impression
-01/03 new onset of abdominal pain
-leukocytosis
- Solid dysphagia once monthly-- concern for esophagitis/presbyesophagus
- GERD new diagnosis
- Chronic anemia
- CHF exacerbation
- LE swelling
- Afib
- CAD s/p stent
- JAN
- CVA
- DM
- CKD
- Overactive bladder
Recommendations
-new abdominal pain overnight rates 22/[address] now currently finishing oral contrast
hx similar pain several years ago etiology unclear
cont IV PPI
pain control per hospitalist
s/p Ferrlecit for iron deficiency
OP follow up for EGD/colon to eval for PASTORA
Subjective
Subjective
Date of Service: January 05, 2024
asked for reconsult for abdominal pain 22/05 developed overnight -- Pt see by Dr. Jung 01/02 for dysphagia and iron deficiency anemia and work up deferred for OP testing til CHF improved , 01/02 brown stool per chart but pt states regular stools last 2
days , NPO
Objective
Data Reviewed
Laboratory Data:
Laboratory Results
01/05/24 06:08
01/05/24 08:30
Laboratory Results
Magnesium 1.9 mg/dl (1.6-2.3) 01/05/24 06:08
Total Bilirubin 0.2 mg/dl (0.2-1.3) 01/05/24 09:39
AST 100 U/L (14-36) H 01/05/24 09:39
ALT 24 U/L (0-35) 01/05/24 09:39
Alkaline Phosphatase 86 U/L (38-126) 01/05/24 09:39
Lipase 74 U/L (23-300) 01/05/24 09:39
Vital Signs and I&O:
Vital Signs
Temp Pulse Resp BP Pulse Ox
97.8 F 92 18 105/60 96
01/05/24 07:45 01/05/24 07:45 01/05/24 07:45 01/05/24 07:45 01/05/24 07:45
I&O
01/04/24 01/05/24 01/06/24
06:59 06:59 06:59
Intake Total 830 / 830 900 / 900
Output Total 400 / 400 400 / 400
Balance 430 / 430 500 / 500
Physical Exam
Physical Exam
HEENT: Anicteric
Cardiology: Normal Sinus Rhythm
Pulmonary: Clear
GI: Soft, Distended (mild ) and Tender (diffuse worse mid lower abdomen )
Extremities: No Edema
Neuro: Other (awake and alert )
[2024-01-05 11:29] LABS: Glucose - Point of Care 317 mg/dl (70-99)
[2024-01-05 11:31] VITALS: BMI 25.3
--- NOTE | 2024-01-05 12:31 | PTCARENOTE ---
Call from coordinate measuring machine technician, the patient projectile vomited when lying flat for CT of her abd. Patient off unit, Marco DOMINGO already ordered, provider notified.
[2024-01-05] MEDS: NOVOLOG FLEXPEN-LOW RESISTANCE 4 UNITS SC (12:37)
[2024-01-05] MEDS: ZOFRAN 4 MG IV (12:38)
[2024-01-05 15:00] VITALS: BP 119/62
[2024-01-05 16:43] LABS: Glucose - Point of Care 198 mg/dl (70-99)
[2024-01-05] MEDS: NOVOLOG FLEXPEN-LOW RESISTANCE 1 UNITS SC (16:46)
[2024-01-05] MEDS: DEPAKOTE (12 HR RELEASE) 500 MG PO (17:28)
[2024-01-05 19:52] VITALS: BP 120/60
[2024-01-05] MEDS: MIRALAX 17 GRAMS PO (20:10)
[2024-01-05] MEDS: SODIUM BICARBONATE 650 MG PO (20:10)
[2024-01-05] MEDS: SENOKOT-S 1 TABLET PO (20:10)
[2024-01-05 21:11] LABS: Glucose - Point of Care 169 mg/dl (70-99)
[2024-01-05] MEDS: FOLVITE 1 MG PO (21:34)
[2024-01-05] MEDS: REMERON 15 MG PO (21:34)
[2024-01-05] MEDS: DETROL 2 MG PO (21:34)
[2024-01-05 23:53] VITALS: BP 101/47
[2024-01-06] VITALS (30 sets, daily range): BP systolic 58–125; BP diastolic 35–102; BMI 24.0; BMI 25.7
[2024-01-06] MEDS: MORPHINE SULFATE 1 MG IV ×2 (03:33→07:59)
[2024-01-06] MEDS: SYNTHROID 112 MCG PO (05:01)
[2024-01-06] MEDS: PROTONIX IV 40 MG IV ×2 (08:01→19:47)
[2024-01-06] MEDS: NSS (PRESERVATIVE FREE) 10 ML IV ×2 (08:01→19:47)
[2024-01-06] MEDS: HEPARIN 5000 UNITS SC ×2 (08:02→19:46)
[2024-01-06] MEDS: MIRALAX 17 GRAMS PO ×2 (08:02→19:48)
[2024-01-06] MEDS: SODIUM BICARBONATE 650 MG PO ×2 (08:02→19:48)
[2024-01-06] MEDS: ASPIR LOW (ENTERIC COATED) 81 MG PO (08:02)
[2024-01-06] MEDS: B COMPLEX w/VITAMIN C 1 CAPLET PO (08:03)
[2024-01-06] MEDS: COREG 3.125 MG PO (08:03)
[2024-01-06] MEDS: CYMBALTA DELAYED RELEASE 60 MG PO (08:03)
[2024-01-06] MEDS: PROCARDIA XL (EXTENDED RELEASE) 30 MG PO (08:03)
[2024-01-06] MEDS: SENOKOT-S 1 TABLET PO ×2 (08:03→19:47)
[2024-01-06 08:07] LABS: Glucose - Point of Care 205 mg/dl (70-99)
[2024-01-06] MEDS: NOVOLOG FLEXPEN-LOW RESISTANCE 2 UNITS SC (08:14)
[2024-01-06 09:20] LABS: Hemoglobin 8.9 g/dL (12.0-16.0); Mean Corp Hgb Conc. 31.8 g/dL (33.0-37.0); Mean Corpuscular Hgb 27.2 pg (27.0-31.0); Mean Corpuscular Volume 85.6 fL (81.0-99.0); Mean Platelet Volume 12.4 fL (7.4-10.4); Platelet Count 269 10^3/uL (130-400); Red Blood Cell Count 3.27 10^6/uL (4.20-5.40); White Blood Cell Count 10.2 10^3/uL (4.8-10.8)
--- NOTE | 2024-01-06 09:39 | W.PN.HOSP.TC ---
Today's Communication/Plan
-
see A/P
Assessment / Plan
Assessment / Plan
HPI: 78 y/o F with h/o PAF, CKD, cva, htn, hld, dm, anemia presented with b/l LE edema for two weeks. Her Lasix was discontinued while she was here last time due to kidney injury three weeks ago. Her primary care called her on Wednesday, asked her to
call nephrology for diuretics. She couldn't get hold off them. She started having pain. She took her 's hctz, thinking that would help.
On arrival, she has b/l LE edema. BNP in 0's. Received a dose of Lasix.
A/P:
# BL LE peripheral edema related to acute on chronic CHF
# acute on chronic diastolic heart failure
BNP 7500
chest x ray No radiographic findings to suggest CHF
BL LE US neg for DVT
IV Lasix on hold. Strict KYM, Daily weight
Echo unrevealing: Normal biventricular size and systolic function without regional wall motion abnormality.
Cont ART SUPERVISOR Coreg
Card on board
# New onset diffuse abdominal pain, started overnight of 01/[address] AP with PO contrast was unrevealing, noted constipation
Abd pain could be related to constipation
Pt was started with Miralax BID, Senokot-S BID, cont Dulcolax PRN
Cont empiric IV PPI BID
Avoid IV Morphine - will stop
GI reconsulted
# AR on CKD stage 3
SCr 1.3 from 1.0 (baseline)
IV Lasix on hold
# Hyperkalemia
K level 5.9
pending lab today
# anemia of chronic disease
hgb at 8.9
no active bleeding
ctm
# Recurrent ESBL Klebsiella UTI
Patient completed course of ertapenem
Urine culture was sent again from admission given pt continues to complain of intermittent dysuria, culture noted 100,000 CFU/Mixed meagan present, probable contamination
Pt was started with Pyridium for intermittent dysuria , hold for now
# CAD status post stents
Continue aspirin
Continue Coreg
# Paroxysmal atrial fibrillation per note
Cont Coreg with hold parameter
# Hypothyroidism
Continue levothyroxine
# Hyperlipidemia
Continue statin
# Type 2 diabetes
Holding metformin
Sliding scale
carb control diet
# Essential hypertension
Continue nifedipine/Coreg with holding parameter
# Trigeminal neuralgia
Continue Depakote
# Overactive bladder
Continue tolterodine
Pyridium on hold as stated above
# Chronic pain/fibromyalgia/depression
Continue duloxetine, mirtazapine
Continue tramadol
# Cough following diet
pt seen by [facility], recc GI given pt's complaints of GERD without official dx or prescribed tx, as well as reported difficulty/coughing/choking with solids more than liquids.
GI felt chronic intermittent dysphagia could be related to esophagitis or presbyesophagus. Recommend Protonix 40mg daily. Can also check outpt EGD/colonoscopy for iron deficiency.
# Clinical deconditioning
Pt appears weaker with less reserve today
PT OT if able
Full code
DVT prophylaxis�heparin SQ
updated on the phone. Gave update and informed about pt's clinical deconditioning today
total time spent 51 min
Anticipated Discharge: > 48 hours
Subjective/Interval History
-
Date of Service: January 06, 2024
Objective Data
-
Labs:
Laboratory Results
01/06/24
08:22
WBC 10.2
Hgb 8.9 L
Hct 28.0 L
Plt Count 269 D
Sodium Pending
Potassium Pending
Chloride Pending
Carbon Dioxide Pending
BUN Pending
Creatinine Pending
Glucose Pending
Calcium Pending
Total Bilirubin Pending
AST Pending
ALT Pending
Alkaline Phosphatase Pending
Vital Signs:
Vital Signs
Temp Pulse Resp BP Pulse Ox
36.9 C 89 18 99/40 93
01/06/24 07:00 01/06/24 07:00 01/06/24 07:00 01/06/24 07:00 01/06/24 07:00
I&O
01/05/24 01/06/24 01/07/24
06:59 06:59 06:59
Intake Total 900 / 900 0 / 0
Output Total 400 / 400 200 / 200
Balance 500 / 500 -200 / -200
--- NOTE | 2024-01-06 10:02 | PTOTSP ---
ST Follow-Up
Limited dysphagia f/u given clear liquid diet order. Pt demonstrates functional oral phase and suspected slight to mild pharyngoesophageal dysfunction.
Recommendations:
- Continue with clear liquid diet, per GI.
- Upgrade back to regular solids, thin liquids, meds as tolerated, once cleared by GI.
- General aspiration precautions: slow intake rate, small bites/sips.
- Reflux precautions: HOB fully upright for all PO intake, remain upright for at least 60 minutes after PO intake, and alternate liquids, and solids.
- MICROSOFT WINDOWS ENGINEER will continue to follow-up to ensure pt is safely consuming diet consistencies recommended.
--- NOTE | 2024-01-06 10:40 | W.PN.CD ---
Today's Communication / Plan
-
No Lasix today
Impression / Plan
-
78-year-old female with history of paroxysmal AF not on anticoagulation , HFpEF, hypertension, hyperlipidemia, CKD who is here today for acute on chronic heart failure exacerbation. Unfortunately had abdominal pain has developed now with
increasing leukocytosis.
acute on chronic HFpEF
- No dyspnea/supine. Does not need Lasix today
- Needing to hold Lasix
- SGLT2i $47/month, will discuss and initiate once kidney fxn stable
AR on CKD with hyperkalemia
- Lasix on hold
Abdominal pain
- per medicine and GI
Hx of PAF, currently in sinus, not on AC given frequent falls and unsteady gait
Stable CAD status post stents, no angina, continue aspirin and atorvastatin as well as carvedilol
Hypertension
Hyperlipidemia
Anemia
Type 2 diabetes
Echo 01/04/2024: LVEF 55-60%, mild LVH, AoV sclerosis, dense MAC
Subjective: Abdominal pain overnight, worsening leukocytosis, infection? intrabdominal process?
Physical Exam
Vital Signs/Labs
Vital Signs
Temp Pulse Resp BP Pulse Ox
98.4 F 89 18 99/40 93
01/06/24 07:00 01/06/24 07:00 01/06/24 07:00 01/06/24 07:00 01/06/24 07:00
01/05/24 01/06/24 01/07/24
06:59 06:59 06:59
Actual Weight 57.334 kg 57.606 kg
01/06/24 08:22
Magnesium 1.9 mg/dl (1.6-2.3) 01/05/24 06:08
01/02/24
15:25
Vsf-A-Jjrcfxlplam Pept 7590
Physical Exam
Constitutional: No acute distress
EENT: Anicteric
Cardiovascular: Rhythm & rate is regular and Pedal edema is absent
Respiratory: Respiratory effort normal and Lungs clear to auscul.
GI: Soft and Distention absent
Neuro/Psych: Alert
Data Reviewed
-
Date of Service: January 06, 2024
[2024-01-06 11:52] LABS: ALT (SGPT) 672 U/L (0-35); Albumin 3.3 g/dl (3.5-5.0); Alkaline Phosphatase 67 U/L (38-126); Blood Urea Nitrogen 63 mg/dl (7-17); Calcium 8.7 mg/dl (8.4-10.2); Carbon Dioxide 17 mmol/L (22-30); Chloride 99 mmol/L (98-107); Direct Bilirubin 0.4 mg/dl (0.0-0.4); Estimated Creatinine Clearance 20 ml/min; Glucose 201 mg/dl (70-99); Magnesium 1.9 mg/dl (1.6-2.3); Potassium 6.5 mmol/L (3.5-5.1); Sodium 130 mmol/L (135-145); Total Bilirubin 0.4 mg/dl (0.2-1.3); Total Protein 6.4 g/dl (6.3-8.2); eGFR 28.84
[2024-01-06 12:04] LABS: AST (SGOT) 925 U/L (14-36)
--- NOTE | 2024-01-06 12:39 | CM ---
Patient seen bedside.
Patient on clear liquid diet, still did not have BM.
Discussed d/c plan home with VN or possible skilled if she is too weak.
Patient declined need for skilled rehab and thinks she can go home.
Plan: home; probably with [facility] when stable.
[2024-01-06 13:10] LABS: Glucose - Point of Care 197 mg/dl (70-99)
[2024-01-06] MEDS: NOVOLOG FLEXPEN-LOW RESISTANCE 1 UNITS SC (13:16)
[2024-01-06] MEDS: DEXTROSE 50% SYRINGE 25 GRAMS IV ×3 (13:16→22:10)
[2024-01-06] MEDS: LOKELMA 10 GRAM PO ×2 (13:17→17:38)
[2024-01-06] MEDS: NOVOLIN R IV (13:25)
--- NOTE | 2024-01-06 13:29 | W.CON.NEPH ---
Consultation
-
Date/Time Consultation Requested: January 06, 2024 12 noon
Date/Time Consultation Performed: January 06, 2024 1 PM
Requesting Provider: Dr. Munoz
Performing Provider: Dr. Matthew
Reason for Consultation: Acute kidney injury, hyperkalemia
Medical History
-
Chief Complaint: Lower extremity edema
History of Present Illness:
This is a 78-year-old female with hypertension on a multidrug regimen, diabetes mellitus type 2 on oral medications, peptic ulcer disease on proton pump inhibitor therapy who was actually in the hospital at the beginning of the month. We had seen
her at that time for acute kidney injury with a creatinine of 2 from her baseline of 1.1. It was felt to be prerenal at that time and she did improve by the time of discharge. She was not sent on diuretic therapy. She then began developing lower
extremity edema and had tried hydrochlorothiazide without benefit. She has not come to the emergency room for the lower extremity edema. She was given intravenous Lasix on the assumption that this was heart failure. Her edema did improve.
However her creatinine began to rise now at 1.8 with an evolving acidosis. She also developed abdominal pain mostly periumbilical but also epigastric. It was felt that this may be due to reflux. She had a CT scan of the abdomen and pelvis which
only suggested constipation is the most significant finding. Her potassium was also found to be elevated 6.5. We are asked to assist with multiple renal issues.
Past Medical History
(CAD with stents, left bundle branch block, paroxysmal atrial fibrillation, CVA, trigeminal neuralgia, sleep apnea, hypertension, hypothyroidism, hyperlipidemia, type 2 diabetes, depression, ESBL UTI, left shoulder replacement complicated by septic
shoulder, subdural hematoma, overactive bladder, C. )
Social History
Tobacco: Former Smoker
Alcohol: None
Family History
no ckd
Allergies / Home Medications
Allergy/AdvReac Type Severity Reaction Status Date / Time
cephalexin Allergy Unknown Verified 01/02/24 13:57
ciprofloxacin Allergy Hives Verified 01/02/24 13:57
formaldehyde Allergy Shortness Verified 01/02/24 13:57
of Breath
Iodinated Contrast Media Allergy Hives Verified 01/02/24 13:57
metoprolol Allergy Itching Verified 01/02/24 13:57
Penicillins Allergy Unknown Verified 01/02/24 13:57
piperacillin [From Zosyn] Allergy Unknown Verified 01/02/24 13:57
pregabalin [From Lyrica] Allergy Hives Verified 01/02/24 13:57
shellfish derived Allergy Unknown Verified 01/02/24 13:57
[id number]-[id number] Reductase Allergy Unknown Verified 01/02/24 13:57
Inhibitor
Sulfa (Sulfonamide Allergy Unknown Verified 01/02/24 13:57
Antibiotics)
tazobactam [From Zosyn] Allergy Unknown Verified 01/02/24 13:57
vancomycin Allergy Rash Verified 01/02/24 13:57
antibiotics Allergy Unknown Uncoded 01/02/24 13:57
�Medication �Instructions �Recorded �Confirmed �Type
aspirin 81 mg tablet,delayed 81 mg PO DAILY Blood Clot 05/17/23 01/02/24 History
release Prevention/Tx
atorvastatin 40 mg tablet (Lipitor) 40 mg PO DAILY High Cholesterol 05/17/23 01/02/24 History
carvedilol 3.125 mg tablet (Coreg) 3.125 mg PO DAILY Heart Failure 05/17/23 01/02/24 History
divalproex 500 mg tablet,delayed 500 mg PO QPM Neurological 05/17/23 01/02/24 History
release Condition
duloxetine 60 mg capsule,delayed 60 mg PO DAILY Neurological 05/17/23 01/02/24 History
release (Cymbalta) Condition
folic acid 1 mg tablet 1 mg PO HS Supplement 05/17/23 01/02/24 History
levothyroxine 112 mcg tablet 112 mcg PO DAILY Thyroid 05/17/23 01/02/24 History
(Synthroid)
magnesium oxide 400 mg PO DAILY Supplement 05/17/23 01/02/24 History
mirtazapine 15 mg tablet 15 mg PO HS Mental Health/Anxiety 05/17/23 01/02/24 History
vitamin B complex 1 tab PO DAILY Supplement 05/17/23 01/02/24 History
nifedipine 30 mg tablet,extended 30 mg PO DAILY Blood pressure #30 05/22/23 01/02/24 Rx
release tabs
tolterodine 2 mg tablet 2 mg PO HS Urinary Issue 12/08/23 01/02/24 History
tramadol 50 mg tablet 50 mg PO BIDPRN PRN moderate pain 12/08/23 01/02/24 History
metformin 500 mg tablet 500 mg PO BID #60 tabs 12/12/23 01/02/24 Rx
sodium bicarbonate 650 mg tablet 650 mg PO BID #60 tabs 12/12/23 01/02/24 Rx
acetaminophen 500 mg tablet 1,000 mg PO Q6HPRN PRN MILD PAIN 01/02/24 01/02/24 History
(Tylenol Extra Strength)
Review of Systems
-
Abdominal pain described above, decreased appetite, lethargy. No chest pain or shortness of breath
All other systems: Negative unless noted
Physical Exam
Vital Signs
Vital Signs
Temp Pulse Resp BP Pulse Ox
98.2 F 66 18 96/53 93
01/06/24 10:47 01/06/24 10:47 01/06/24 10:47 01/06/24 10:47 01/06/24 10:47
Lab Results
WBC 10.2 10^3/uL (4.8-10.8) 01/06/24 08:22
RBC 3.27 10^6/uL (4.20-5.40) L 01/06/24 08:22
Hgb 8.9 g/dL (12.0-16.0) L 01/06/24 08:22
Hct 28.0 % (37.0-47.0) L 01/06/24 08:22
Plt Count 269 10^3/uL (130-400) D 01/06/24 08:22
Sodium 130 mmol/L (135-145) L 01/06/24 08:22
Chloride 99 mmol/L (98-107) 01/06/24 08:22
Carbon Dioxide 17 mmol/L (22-30) L 01/06/24 08:22
BUN 63 mg/dl (7-17) H 01/06/24 08:22
Creatinine 1.8 mg/dL (0.6-1.0) H 01/06/24 08:22
eGFR 28.84 01/06/24 08:22
Glucose 201 mg/dl (70-99) H 01/06/24 08:22
Calcium 8.7 mg/dl (8.4-10.2) 01/06/24 08:22
Dmm-A-Xbymeuxeeit Pept 7590 pg/ml 01/02/24 15:25
Albumin 3.3 g/dl (3.5-5.0) L 01/06/24 08:22
Physical Exam
Patient is awake alert oriented and in no distress. Mood and affect were pleasant, insight and judgment were good. Pupils are equal round and reactive to light, extraocular movements are intact, sclera were anicteric. Hearing was normal, ears and
nose are intact. Oropharynx was clear. Neck was supple with trachea midline and no thyromegaly. Heart was regular rate and rhythm without rubs. Lower extremities without edema. Lungs were clear to auscultation bilaterally and with normal
excursion. Abdomen was soft, tender to palpation periumbilical, with normal active bowel sounds, and no hepatosplenomegaly. Skin was without rash and with normal turgor.
Data Reviewed
-
Radiology: Image Personally Visualized and interpreted (Chest x-ray on January 02, 2024 by my reading shows no CHF)
CT Scan: Report Reviewed by me (CT scan on January 05, 2024 shows pancreatic and splenic calcifications partially calcified right adrenal mass, moderate atherosclerotic vascular disease in the aorta, old rib fractures)
Labs: Labs Reviewed by me (Sodium 130, potassium 6.5, bicarbonate 17, BUN 63, creatinine 1.8, AST 925, ALT in 672, hemoglobin 8.9, WBC 10.2, platelets 269)
Old Records: Reviewed (On December 12, 2023 potassium 4.8, bicarbonate 17, creatinine 0.9)
Assessment/Plan
-
Impression:
Acute kidney injury
Baseline CKD3a (1.1)
History of recurrent UTI (ESBL)
Coronary artery disease with previous stenting procedure
Paroxysmal atrial fibrillation
History of CVA
Hypothyroidism
Diabetes mellitus type II
History of subdural hematoma
Trigeminal neuralgia
Multiple left shoulder surgeries with septic left shoulder hardware removal
Bladder dysfunction
Chronic pain/ fibromyalgia
Depression
Restless leg syndrome
Anemia
Hyperkalemia
Metabolic acidosis
Elevated LFTs
Abdominal pain
Plan:
I suspect acute kidney injury is prerenal given hypotension as well at this time.
We will check urine studies as well as a bladder scan
IV fluids with bicarb and will be given
Nifedipine will be discontinued as this may also have been causing the lower extremity edema
Check lactate
Serial BMP
Potassium will be treated medically
Discussed with the son at bedside
[2024-01-06] MEDS: ULTRAM 50 MG PO (13:36)
[2024-01-06] MEDS: NSS 1000 IV ×3 (13:36→22:43)
[2024-01-06] MEDS: SODIUM BICARBONATE 1150 MEQ IV (14:54)
--- NOTE | 2024-01-06 16:25 | W.PN.GI.CBS2 ---
Addendum entered and electronically signed by Allie Gomez MD 01/06/24 21:05:
Also discussed with daughter at bedside and she says that her mom usually gets abdominal pain with UTI will get UA and urine cultures and also rule out sepsis per primary team and has been started on antibiotics
Addendum entered and electronically signed by Allie Gomez MD 01/06/24 18:09:
I saw and examined the patient.
The PNEUMATIC JACK OPERATOR's note was reviewed and I agree with the note.
Comment: Still with persistent worsening abdominal pain and also with nausea pain now more in the right lower quadrant. Labs look much worse with significantly elevated transaminitis, worsening AR with hyperkalemia and lactic acidosis. Lasix was
held today. I am concerned for probable shock liver and probable ischemic bowel from low flow state from CHF although CT yesterday did not reveal any significant findings to explain her pain it was done without IV contrast because of her AR. May
need to consider MRA but may not tolerate will get urgent surgical consult and if pain worsens will need urgent repeat CT. She also has a history of PAF and not on anticoagulation because of frequent falls and unsteady gait but doubt embolic
phenomenon. She has been started on bicarbonate noted input from renal discussed with Dr. Samuel also. patient being transferred to ICU. DW Dr. Ge also.
Original Note:
Today's Communication / Plan
-
NPO. Urgent surgery eval requested. Check stat lactic acid.
Assessment / Plan
-
The patient is a 78yo W with past medical history significant for CAD s/p stent, afib, CVA and JAN who was admitted with increasing LE swelling with elevated BNP in 7000s. She is currently being treated for CHF. GI consulted 01/02 for
dysphagia/reflux with also noted chronic Iron deficiency anemia. She was recommended OP follow up for EGD/colon. Now asked to reassess for abdominal pain.
01/05/24 CT A/P: IMPRESSION: Small bilateral pleural effusions. Tiny pericardial effusion. Prior cholecystectomy. Enlarged newly calcified right adrenal mass. . Repeat MRI examination recommended. Findings consistent with prior benign granulomatous
disease. Pancreatic calcifications suggesting chronic pancreatitis. Moderate fecal material throughout the colon. Moderate diffuse bladder wall thickening. This can be seen with cystitis or bladder outlet obstruction.
01/06/24: She continues with ongoing abdominal pain. CT imaging was obtained which shows no acute findings to explain her symptoms. She had mild fecal material throughout the colon and was started on a bowel regimen with MiraLAX and senna. She
also was started on twice daily PPI given some upper GI complaints and dysphagia. Noted with significant increase in LFTs this morning with an AST of 925 and ALT of 672. Also with a rising creatinine of 1.8, worsening acidosis with a sodium
bicarbonate of 17, and potassium of 6.5. Renal was consulted and started on a bicarb drip.
Impression
-01/03 new onset of abdominal pain
-leukocytosis
-Acidosis
-Abnormal LFTs, hepatocellular picture
-AR on CKD
-Constipation
- Solid dysphagia once monthly-- concern for esophagitis/presbyesophagus
- GERD new diagnosis
- Chronic anemia
- CHF exacerbation
- LE swelling
- Afib
- CAD s/p stent
- JAN
- CVA
- DM
- Overactive bladder
Recommendations:
-She continues with abdominal pain now with picture consistent with a possible shock state with significant increase of LFTs and worsening renal function. Also has some mildly worsening acidosis. She was placed on a bicarb drip as above. CT scan
did not show any significant findings to explain her symptoms.
-Will check a lactic acid stat. Concern for possible ischemic process given the significance and pain out of proportion to her CT finding
-[place] texted the hospitalist Dr. Munoz recommending urgent surgical evaluation as recommended by Dr. Gomez
-Would make her n.p.o. at this time with small sips of liquids as needed for medication
-PRN analgesics
-Continue PPI for now
-Dr. Gomez will see the pt and determine need for urgent repeat imaging but this is limited given her renal function and pain. MRI w/o and MRA may be helpful but due to her pain I am unsure she could sit for this.
-s/p Ferrlecit for iron deficiency
-Eventual OP follow up for EGD/colon pending clinical course. may need to consider inpatient
-Will follow
Subjective
Subjective
Date of Service: January 06, 2024
The pt was seen and examined at the bedside. Labs reviewed with significantly increased transaminases with hypotension consistent with possible shock picture. She continues with significant abdominal pain requesting pain medication. She is very
tender on examination. She is very pale in color.
Objective
Data Reviewed
Laboratory Data:
Laboratory Results
01/06/24 08:22
Laboratory Results
Magnesium 1.9 mg/dl (1.6-2.3) 01/06/24 08:22
Total Bilirubin 0.4 mg/dl (0.2-1.3) 01/06/24 08:22
AST 925 U/L (14-36) H* 01/06/24 08:22
ALT 672 U/L (0-35) H* 01/06/24 08:22
Alkaline Phosphatase 67 U/L (38-126) 01/06/24 08:22
Lipase 74 U/L (23-300) 01/05/24 09:39
Vital Signs and I&O:
Vital Signs
Temp Pulse Resp BP Pulse Ox
98.2 F 66 18 96/53 93
01/06/24 10:47 01/06/24 10:47 01/06/24 10:47 01/06/24 10:47 01/06/24 10:47
I&O
01/05/24 01/06/24 01/07/24
06:59 06:59 06:59
Intake Total 900 / 900 0 / 0
Output Total 400 / 400 200 / 200
Balance 500 / 500 -200 / -200
Physical Exam
Physical Exam
HEENT: Anicteric
Cardiology: S1 and S2 (Sinus bradycardia on gambling monitor)
Pulmonary: Clear
GI: Distended (Mildly), Tender (Diffusely tender throughout the abdomen) and Other (Hypoactive bowel)
Very pale appearing elderly female
[2024-01-06 17:13] LABS: Blood Urea Nitrogen 70 mg/dl (7-17); Calcium 8.4 mg/dl (8.4-10.2); Carbon Dioxide 20 mmol/L (22-30); Chloride 96 mmol/L (98-107); Estimated Creatinine Clearance 16 ml/min; Glucose 232 mg/dl (70-99); Lactic Acid 4.2 mmol/L (0.7-2.0); Sodium 128 mmol/L (135-145); eGFR 21.49
--- NOTE | 2024-01-06 17:19 | W.PN.UPDATE ---
Update Note
Progress Note Update
Patient's repeat BMP returned with worsening hyperkalemia at 7.0.
Will order additional insulin with dextrose, IV calcium and Lokelma.
Discussed with nephrology.
Updated RN.
Transfer to IMU with worsening clinical status and concern of ongoing ischemic bowel.
[2024-01-06 17:20] LABS: Glucose - Point of Care 257 mg/dl (70-99)
[2024-01-06] MEDS: NOVOLOG FLEXPEN-LOW RESISTANCE 3 UNITS SC (17:37)
[2024-01-06] MEDS: CALCIUM GLUCONATE 100 IV ×2 (17:38→22:12)
[2024-01-06] MEDS: NOVOLIN R 0.100000000000000006 UNITS IV (17:39)
--- NOTE | 2024-01-06 18:14 | CON.GS ---
Consultation
-
Requesting Provider: Jason
Performing Provider: Jimmie
Reason for Consultation: Bowel ischemia
Medical History
-
Chief Complaint: Abd pain
History of Present Illness:
78F reports weeks of abd pain that acutely worsening abd pain that begin 5 days ago. She is somnolent during my encounter and has trouble giving a clear history. Per GI, yesterday she had epigastric/retrosternal pain. For me today she c/o RLQ pain.
She endorses nausea and yesterday vomited some PO contrast. She is oliguric. She denies BM/flatus over the past day.
Past Medical History
Past Medical History: Other (CAD with stents, left bundle branch block, paroxysmal atrial fibrillation, CVA, trigeminal neuralgia, sleep apnea, hypertension, hypothyroidism, hyperlipidemia, type 2 diabetes, depression, ESBL UTI, left shoulder
replacement complicated by septic shoulder, subdural hematoma, overactive bladder)
Past Surgical History: Other (Cholecystectomy Hysterectomy Left shoulder surgery left hip surgery Cardiac stent she believes they took her appendix at time of CCY)
Social History
Tobacco: Non-Smoker
Alcohol: None
Drug: None
Personal:
Living: With Family
Family History
Family History: Reviewed & Noncontributory
Allergies / Home Medications
Allergy/AdvReac Type Severity Reaction Status Date / Time
cephalexin Allergy Unknown Verified 01/02/24 13:57
ciprofloxacin Allergy Hives Verified 01/02/24 13:57
formaldehyde Allergy Shortness Verified 01/02/24 13:57
of Breath
Iodinated Contrast Media Allergy Hives Verified 01/02/24 13:57
metoprolol Allergy Itching Verified 01/02/24 13:57
Penicillins Allergy Unknown Verified 01/02/24 13:57
piperacillin [From Zosyn] Allergy Unknown Verified 01/02/24 13:57
pregabalin [From Lyrica] Allergy Hives Verified 01/02/24 13:57
shellfish derived Allergy Unknown Verified 01/02/24 13:57
[id number]-[id number]-[id number] Reductase Allergy Unknown Verified 01/02/24 13:57
Inhibitor
Sulfa (Sulfonamide Allergy Unknown Verified 01/02/24 13:57
Antibiotics)
tazobactam [From Zosyn] Allergy Unknown Verified 01/02/24 13:57
vancomycin Allergy Rash Verified 01/02/24 13:57
antibiotics Allergy Unknown Uncoded 01/02/24 13:57
�Medication �Instructions �Recorded �Confirmed �Type
aspirin 81 mg tablet,delayed 81 mg PO DAILY Blood Clot 05/17/23 01/02/24 History
release Prevention/Tx
atorvastatin 40 mg tablet (Lipitor) 40 mg PO DAILY High Cholesterol 05/17/23 01/02/24 History
carvedilol 3.125 mg tablet (Coreg) 3.125 mg PO DAILY Heart Failure 05/17/23 01/02/24 History
divalproex 500 mg tablet,delayed 500 mg PO QPM Neurological 05/17/23 01/02/24 History
release Condition
duloxetine 60 mg capsule,delayed 60 mg PO DAILY Neurological 05/17/23 01/02/24 History
release (Cymbalta) Condition
folic acid 1 mg tablet 1 mg PO HS Supplement 05/17/23 01/02/24 History
levothyroxine 112 mcg tablet 112 mcg PO DAILY Thyroid 05/17/23 01/02/24 History
(Synthroid)
magnesium oxide 400 mg PO DAILY Supplement 05/17/23 01/02/24 History
mirtazapine 15 mg tablet 15 mg PO HS Mental Health/Anxiety 05/17/23 01/02/24 History
vitamin B complex 1 tab PO DAILY Supplement 05/17/23 01/02/24 History
nifedipine 30 mg tablet,extended 30 mg PO DAILY Blood pressure #30 05/22/23 01/02/24 Rx
release tabs
tolterodine 2 mg tablet 2 mg PO HS Urinary Issue 12/08/23 01/02/24 History
tramadol 50 mg tablet 50 mg PO BIDPRN PRN moderate pain 12/08/23 01/02/24 History
metformin 500 mg tablet 500 mg PO BID #60 tabs 12/12/23 01/02/24 Rx
sodium bicarbonate 650 mg tablet 650 mg PO BID #60 tabs 12/12/23 01/02/24 Rx
acetaminophen 500 mg tablet 1,000 mg PO Q6HPRN PRN MILD PAIN 01/02/24 01/02/24 History
(Tylenol Extra Strength)
Review of Systems
-
A 10 point review of systems was completed, and was negative except as per HPI.
Physical Exam
Vital Signs
Temp Pulse Resp BP Pulse Ox
98.7 F 56 18 102/36 96
01/06/24 15:00 01/06/24 18:03 01/06/24 16:55 01/06/24 18:03 01/06/24 16:55
01/05/24 01/06/24 01/07/24
06:59 06:59 06:59
Actual Weight 57.334 kg 57.606 kg
Body Mass Index (BMI) 24.0
Lab Results
01/06/24 08:22
WBC 10.2 10^3/uL (4.8-10.8) 01/06/24 08:22
Hgb 8.9 g/dL (12.0-16.0) L 01/06/24 08:22
Hct 28.0 % (37.0-47.0) L 01/06/24 08:22
Plt Count 269 10^3/uL (130-400) D 01/06/24 08:22
Abs Immat Gran (auto) 0.0 10^3/uL (0-0.05) 01/02/24 15:25
Neutrophils % 55.8 % (42.2-75.2) 01/02/24 15:25
Physical Exam
General: Other (toxic appearing, pallor)
HEENT: Anicteric
GI: Soft, Non Distended and Tender (mild ttp to R:Q with deep palp, no tt light perc, no R/R/G)
Neuro: Other (somnolent)
Data Reviewed
-
CT Scan: Image Personally Visualized and interpreted, Report Reviewed by me, Discussed with Physician, Discussed with Patient and Discussed with Family
Medical Tests (Nuc Med, Echo etc): Image Personally Visualized and interpreted, Report Reviewed by me, Discussed with Physician, Discussed with Patient and Discussed with Family
Labs: Labs Reviewed by me, Discussed with Physician, Discussed with Patient and Discussed with Family
Old Records: Reviewed
Assessment / Plan
-
78F with abd pain of unknown etiology
Afebrile
Abd pain appears migratory and intermittent
SBP 90s
Oliguria
H/H stable
New AR, hyperkalemia and shock liver picture today
Elevated lactic
UCx mixed meagan
CT A/P non con unrevealing, no acute intra-abd process, there is significant atherosclerotic disease in the abdomen, unable to determine patency without contrast, kidney function limits ability to administer contrast;
Hx of PAF not on A/C but doubt acute thrombotic/embolic event as the abd exam is not consistent with that and would not explain the acute hepatic/renal decline
Echo 2 days ago with preserved EF
Acute EKG changes this aleisha
Suspect cardiogenic low flow state driving these processes
Plan:
Agree with ICU transfer
D/w livestock auctioneer Cardiology, they are evaluating these new findings
Does not appear to be a role for GS at this time, pls call if concerns or questions
[2024-01-06] MEDS: NSS 500 IV (18:15)
--- NOTE | 2024-01-06 19:20 | PTCARENOTE ---
patient received from @1845. oriented to room, protective foams placed on sacrum and heels for blanchable redness. monitor sinus zina. IV bolus completed, fluids with bicarb infusing per orders. patient lethargic. pulse oximeter 84 on 2
liters. oxygen increased to 6 liters. pulse oximeter 88. RT paged to evaluate. report to oncoming RN. VAT RN paged to insert midline due to limited IV access
--- NOTE | 2024-01-06 19:25 | TRANSFER ---
pt's Potassium was increasing throughout the day. K+ went from 6.5 to 7.0. Sodium went from 130 to 128. pt was lethargic, pale as noted from yesterday as well, and was having a lot of pain in her abdomen. pt was transferred to ICU per Dr. Munoz for
close monitoring and more attentive care. Report was called and given to Catherine in the ICU.
--- NOTE | 2024-01-06 20:00 | PTCARENOTE ---
Received patient AAOx4, complaining of 13/10 abdominal pain, spoke with pharmacy and STUDENT ACTIVITIES DIRECTOR, dilaudid given. Sinus zina/normal sinus, 50s-60s. BP soft, 80s-100s/40s-50s. STUDENT ACTIVITIES DIRECTOR aware. Palpable radial and pedal pulses, weak bilaterally. Lung sounds
diminished posteriorly, coarse anteriorly and bilaterally. On 12 liters midflow, saturating 94%. No BM, senna and miralax given. Abdomen soft, round, obese, tender to touch. Bladder scanned for [address] Foams on heels and sacrum
for protection, blanchable. 2 RH #22 PIVs patent, WNL. Call estrada within reach.
--- NOTE | 2024-01-06 20:19 | W.PN.UPDATE ---
Update Note
Progress Note Update
After transfer to the ICU patient was assessed
78-year-old female with history of paroxysmal AF not on anticoagulation , HFpEF, coronary artery disease history of coronary stenting, hypertension, hyperlipidemia, CKD initially seen for suspected acute on chronic heart failure exacerbation. As
part of her evaluation better she had an echocardiogram 01/04/2024 with normal left ventricular function. Patient then noted to have abdominal pain with leukocytosis and has subsequently developed AR with creatinine 2.3, severe hyperkalemia with
potassium of 7, lactic acidosis and elevated LFTs with AST 925 ALT 672. Patient has been seen by GI concern raised for ischemic bowel. No clear acute abnormality noted on CT. Surgery consulted Dr. Samuel please see consultation for detail. At
this point general surgery did not see an indication for acute surgical intervention patient now in the ICU.
No chest pain or shortness of breath. Patient has some lower abdominal discomfort which she she says she has had on and off. On exam patient appears pale lethargic cardiac exam regular respiratory with few fine crackles at bases otherwise clear
abdomen with mild diffuse discomfort with palpation with no rebound or guarding. ECG without ischemic ischemic change.
-At this point there is no evidence of acute coronary ischemia or acute decompensated heart failure as a primary cause for her presentation.
-With lactic acidosis acute renal failure and suspected shock liver possibility of sepsis is a consideration which may be secondary to intra-abdominal process . Urinary source also consideration. Ischemic bowel assessment also in progress will
deferred to GI and general surgery regarding this assessment.
-Treatment of severe hyperkalemia as directed by primary team. Patient has been given bicarbonate, insulin await follow up labs
-Blood cultures, urinalysis and urine culture
-Broad-spectrum antibiotics as per hospitalists/ intensivisits
-Repeat CBC/hemoglobinnordered
-Serial troponin
-Continued assessment of abdominal issues by GI and surgery
-Lipase and amylase
critical care time 50min
issues reviewed with familyat bedside, nursing staff, critical care PA .also communicated with hospitalists , gen surgery and GI
-
[2024-01-06] MEDS: INVANZ 55 MG IV (20:39)
[2024-01-06] MEDS: DEPAKOTE (12 HR RELEASE) 500 MG PO (20:39)
[2024-01-06] MEDS: DILAUDID 0.25 MG IV ×2 (20:40→22:58)
[2024-01-06 21:13] LABS: Hematocrit 23.6 % (37.0-47.0); Mean Corp Hgb Conc. 33.9 g/dL (33.0-37.0); Mean Corpuscular Hgb 27.9 pg (27.0-31.0); Mean Corpuscular Volume 82.2 fL (81.0-99.0); Mean Platelet Volume 11.1 fL (7.4-10.4); Platelet Count 301 10^3/uL (130-400); Red Blood Cell Count 2.87 10^6/uL (4.20-5.40); Red Cell Dist. Width 17.1 % (11.5-14.5); White Blood Cell Count 15.3 10^3/uL (4.8-10.8)
[2024-01-06 21:23] LABS: INR 1.74; PT 20.2 Sec (11.4-14.6)
[2024-01-06 21:24] LABS: APTT 40.1 Sec (23.4-35.0); Lactic Acid 2.3 mmol/L (0.7-2.0)
[2024-01-06 21:32] LABS: Albumin 2.8 g/dl (3.5-5.0); Alkaline Phosphatase 61 U/L (38-126); Amylase 55 U/L (30-110); Blood Urea Nitrogen 69 mg/dl (7-17); Calcium 7.3 mg/dl (8.4-10.2); Carbon Dioxide 30 mmol/L (22-30); Direct Bilirubin 0.4 mg/dl (0.0-0.4); Estimated Creatinine Clearance 18 ml/min; Glucose 200 mg/dl (70-99); Lipase 121 U/L (23-300); Magnesium 1.7 mg/dl (1.6-2.3); Total Bilirubin 0.4 mg/dl (0.2-1.3); Total Protein 5.5 g/dl (6.3-8.2); eGFR 25.41
[2024-01-06] MEDS: DETROL 2 MG PO (21:37)
[2024-01-06] MEDS: FOLVITE 1 MG PO (21:37)
[2024-01-06] MEDS: REMERON 15 MG PO (21:37)
[2024-01-06 22:03] LABS: ALT (SGPT) 3524 U/L (0-35); Chloride 88 mmol/L (98-107); Potassium 5.2 mmol/L (3.5-5.1); Sodium 126 mmol/L (135-145)
[2024-01-06] MEDS: NOVOLIN R 10 UNITS IV (22:09)
[2024-01-06] MEDS: MAGNESIUM SULFATE 102 GRAMS IV (22:12)
[2024-01-06] MEDS: LEVOPHED 250 IV (22:27)
[2024-01-06 22:47] LABS: AST (SGOT) 4710 U/L (14-36)
[2024-01-06 23:23] LABS: B.E. -9.3 mmol/L; HCO3 17.6 mmol/L (21-28); O2 Saturation % 94.9 % (94-98); PCO2 42 mmHg (32-35); PO2 75 mmHg (83-108); pH 7.23 (7.35-7.45)
--- NOTE | 2024-01-06 23:58 | PTCARENOTE ---
Labs sent, BP low, levo gtt started and 1 liter NSS bolus given. Calcium and mag repleted. Insulin and D50 given for high K. EKG done for high troponin, SATELLITE MANAGER aware of lab results. NSS gtt at 80 mls/hr started, bicarb gtt discontinued. Family updated,
at bedside. Increased to 14 liters midflow, saturating 95%. Dilaudid given for pain, patient fell asleep, woke up and told this RN pain improved. Call estrada within reach.
[2024-01-07] VITALS (96 sets, daily range): BP systolic 82–133; BP diastolic 34–97; BMI 26.9
[2024-01-07 00:19] LABS: Glucose - Point of Care 234 mg/dl (70-99)
[2024-01-07] MEDS: NOVOLOG FLEXPEN 2 UNITS SC (01:02)
[2024-01-07 01:15] LABS: D-Dimer 4.34 ug/mlFEU (0.00-0.50)
[2024-01-07 01:33] LABS: Blood Urea Nitrogen 66 mg/dl (7-17); Calcium 8.1 mg/dl (8.4-10.2); Carbon Dioxide 17 mmol/L (22-30); Chloride 103 mmol/L (98-107); Estimated Creatinine Clearance 17 ml/min; Glucose 204 mg/dl (70-99); Potassium 4.8 mmol/L (3.5-5.1); Sodium 131 mmol/L (135-145); eGFR 23.97
[2024-01-07 03:05] LABS: Urine Albumin 3+ (Neg - Trace); Urine Bilirubin Negative (Negative); Urine Character Very Cloudy (Clear); Urine Color Yellow; Urine Glucose Trace (Negative); Urine Ketone 1+ (Negative); Urine Leukocyte 2+ (Negative); Urine Nitrite Negative (Negative); Urine Occult Blood 4+ (Negative); Urine Urobilinogen Negative (Neg - 1+)
[2024-01-07 03:18] LABS: Urine Bacteria Many (Negative); Urine Red Blood Cell >100 /HPF (0-2); Urine Squamous Cell 0-2 /LPF (Few); Urine White Cell >100 /HPF (0-5)
[2024-01-07 03:25] LABS: Urine Sodium 68 mmol/L (30-90)
--- NOTE | 2024-01-07 03:40 | PTCARENOTE ---
Patient put on high flow for consistent saturation of 86-90%, was maxed on 15 liters midflow. Otherwise patient assessment unchanged from previous, family at bedside.
[2024-01-07 04:26] LABS: Hematocrit 25.3 % (37.0-47.0); Hemoglobin 8.2 g/dL (12.0-16.0); Mean Corp Hgb Conc. 32.4 g/dL (33.0-37.0); Mean Corpuscular Hgb 27.9 pg (27.0-31.0); Mean Corpuscular Volume 86.1 fL (81.0-99.0); Mean Platelet Volume 10.6 fL (7.4-10.4); Platelet Count 308 10^3/uL (130-400); Red Blood Cell Count 2.94 10^6/uL (4.20-5.40); White Blood Cell Count 14.3 10^3/uL (4.8-10.8)
[2024-01-07 04:37] LABS: Body Fluid for Eosinophils No Eosinophils seen
[2024-01-07 04:39] LABS: APTT 35.9 Sec (23.4-35.0); INR 1.69; PT 19.7 Sec (11.4-14.6)
[2024-01-07 05:04] LABS: Lactic Acid 1.8 mmol/L (0.7-2.0)
[2024-01-07] MEDS: SYNTHROID 112 MCG PO (05:21)
[2024-01-07 05:45] LABS: Albumin 2.8 g/dl (3.5-5.0); Alkaline Phosphatase 69 U/L (38-126); Blood Urea Nitrogen 65 mg/dl (7-17); Calcium 7.9 mg/dl (8.4-10.2); Carbon Dioxide 16 mmol/L (22-30); Chloride 102 mmol/L (98-107); Direct Bilirubin 0.4 mg/dl (0.0-0.4); Estimated Creatinine Clearance 17 ml/min; Glucose 179 mg/dl (70-99); Sodium 131 mmol/L (135-145); Total Bilirubin 0.4 mg/dl (0.2-1.3); Total Protein 5.7 g/dl (6.3-8.2); eGFR 23.97
[2024-01-07 05:45] LABS: Glucose - Point of Care 225 mg/dl (70-99)
--- NOTE | 2024-01-07 05:48 | W.PN.GI.CBS2 ---
Today's Communication / Plan
-
See assessment and plan for details.
Assessment / Plan
-
1. Abdominal pain: Lower, acute, in the setting of hypotension, with markedly positive UA and history of UTIs in the past, most likely secondary to cystitis/UTI with underlying sepsis. While ischemic bowel is still a consideration she is much
improved today making this much less likely, and again UA with greater than 100 WBCs. Her elevated LFTs are likely low flow/shock liver, no upper abdominal tenderness or pain. At this point we will continue antibiotics, supportive care, await
blood cultures, continue to trend labs. If continues to improve then would be okay to start clear liquids today from a GI standpoint.
Subjective
Subjective
Date of Service: January 07, 2024
Patient overall feeling better today, much less abdominal pain, no vomiting, no fevers overnight, still hypotensive. Not much urine output, and bladder scan with only minimal urine.
Objective
Data Reviewed
Laboratory Data:
Laboratory Results
01/07/24 04:17
01/07/24 04:17
Laboratory Results
PT 19.7 Sec (11.4-14.6) H 01/07/24 04:17
INR 1.69 01/07/24 04:17
APTT 35.9 Sec (23.4-35.0) H 01/07/24 04:17
Magnesium 2.0 mg/dl (1.6-2.3) 01/07/24 04:17
Total Bilirubin 0.4 mg/dl (0.2-1.3) 01/07/24 04:17
AST 4710 U/L (14-36) H* 01/06/24 21:05
ALT 3524 U/L (0-35) H* 01/06/24 21:05
Alkaline Phosphatase 69 U/L (38-126) 01/07/24 04:17
Amylase 55 U/L (30-110) 01/06/24 21:05
Lipase 121 U/L (23-300) 01/06/24 21:05
Vital Signs and I&O:
Vital Signs
Temp Pulse Resp BP Pulse Ox
98.1 F 80 19 105/76 95
01/07/24 03:40 01/07/24 05:30 01/07/24 05:30 01/07/24 05:15 01/07/24 05:30
I&O
01/05/24 01/06/24 01/07/24
06:59 06:59 06:59
Intake Total 900 / 900 0 / 0 2475.0 / 2475.0
Output Total 400 / 400 200 / 200 140 / 140
Balance 500 / 500 -200 / -200 2335.0 / 2335.0
Physical Exam
Physical Exam
General: NAD
Abdomen: Few normal bowel sounds, mildly distended though soft, no tenderness now, no masses or bruits, no ascites
[2024-01-07] MEDS: NOVOLOG FLEXPEN-LOW RESISTANCE 2 UNITS SC (06:05)
[2024-01-07] MEDS: SODIUM BICARBONATE 1150 MEQ IV ×2 (06:11→20:18)
[2024-01-07] MEDS: LEVOPHED 250 IV ×2 (06:21→14:53)
--- NOTE | 2024-01-07 06:23 | W.PN.CD ---
Today's Communication / Plan
-
Troponin of 45 in the setting of patient with acute illness and prior history of coronary disease and coronary stenting. First troponin was the peak troponin. No complaints of chest discomfort or shortness of breath when I evaluated the patient
last evening patient currently more awake and appears to be feeling better this morning provide some additional history apparently she had some epigastric discomfort at some point this hospitalization unclear if it was mercury cell cleaner 01/05 or if it
could have been 01/04. This is higher up than the much lower abdominal discomfort she was reporting yesterday evening possible this could have represented coronary ischemia or it could have been part of abdominal process.
Aspirin.
Echocardiogram to reassess left ventricular function.
Continue Levophed and wean as tolerated.
Await chest x-ray this morning. Patient's had increased O2 requirements which may be multifactorial including component of heart failure. Management may be challenging considering patient's blood pressure and AR.
Elevated D-dimer of unclear significance. Not good candidate for CT for PE at this time with AR. Will await echo and check lower extremity ultrasound
Continue antibiotics and await results of cultures. BC and UC. Urinalysis suggestive of UTI.
Treatment of anemia as directed by primary team
Impression / Plan
-
78-year-old female with history of paroxysmal AF not on anticoagulation , HFpEF, hypertension, hyperlipidemia, CKD who is here today for acute on chronic heart failure exacerbation. Unfortunately had abdominal pain has developed now with
increasing leukocytosis.
01/06/2024 patient had additional decompensation. Severe hypokalemia with a potassium of 7 , lactic acidosis, AR with creatinine up to 2.3 and transaminitis and relatively low blood pressure.. Patient transferred to ICU.
Patient transferred to the ICU. Relatively low blood pressures with l severe hyperkalemia with a potassium of 7.0, lactic acidosis, elevated creatinine to 2.3 and elevated LFTs patient had been evaluated by GI as well as general surgery. Patient
had some complaints of abdominal pain/lower abdominal pain which raises some question of possibility of ischemic bowel. Seen by general surgery. Patient not felt at that time to have an indication for surgery and it was not clear that the patient
had ischemic bowel. Transferred to ICU. Exact cause of decompensation was unclear. Possibility of sepsis or intra-abdominal process entertained. No complaints of shortness of breath or chest pain at that time and no ischemic ECG changes. First
troponin in ICU was 45 which appears to been the peak and is since trended down. Patient has had increased O2 requirements and is also required pressors with Levophed at 5. However patient is currently feeling better. LFTs have further risen with
AST 4700 creatinine remains at 2.1.
Elevated troponin.
-Troponin of 45 in the setting of patient with acute illness and prior history of coronary disease and coronary stenting. First troponin was the peak troponin. No complaints of chest discomfort or shortness of breath when I evaluated the patient
last evening patient currently more awake and appears to be feeling better this morning provide some additional history apparently she had some epigastric discomfort at some point this hospitalization unclear if it was mercury cell cleaner 01/05 or if it
could have been 01/04. This is higher up than the much lower abdominal discomfort she was reporting yesterday evening possible this could have represented coronary ischemia or it could have been part of abdominal process.
-Patient has prior history of coronary stenting.
-With no chest discomfort trending down troponins and other medical issues including AR would not plan for cardiac catheterization at this time but will continue to assess.
-Echocardiogram this morning. Note patient with normal left ventricular function 01/04/2024.
-Continue aspirin.
-Continue aspirin.
-Heparin not added overnight due to concern of significant anemia and uncertainty of intra-abdominal process.
Hypotension. Patient had relatively low BP but was not requiring pressors when initially assessed last night. Levophed had been as high as 8 at 1 point but now currently at 5. Exact etiology unclear. Patient may have component of sepsis. Urine
is suspicious for UTI.
-Await BC and UC
-Antibiotic coverage as directed by primary team
-Reassess echo
Respiratory insufficiency. Patient now on high flow
-On initial presentation to hospital patient felt to have component of acute on chronic heart failure and had normal left ventricular function/HFpEF
-Chest x-ray had suggested- -Chest x-ray with subtle interstitial prominence possible CHF yesterday. Of note patient had increased O2 requirements since that chest x-ray. Will check follow-up study
-Chest x-ray also had suggested opacities at bases which may be atelectasis but will evaluate for infiltrate
-With pressor requirement and AR would be challenging to diurese at this time. Would make assessment after x-ray and echo..
-Patient also had increased respirations yesterday related to acidosis.
-echo
-Note patient with elevated D-dimer. Unclear significance. With AR patient not a good candidate for CT with contrast to evaluate for PE will await echo and check lower extremity ultrasound
acute on chronic HFpEF
-On initial presentation to hospital patient felt to have component of acute on chronic heart failure and had normal left ventricular function/HFpEF
-Additional assessment as noted above including reassessment of left ventricular function
History of PAF listed. Not on anticoagulation given frequent falls remains in sinus monitor on telemetry
AR on CKD with development of severe hyperkalemia.
-Potassium was as high as 7. Now improved. Patient remains on bicarb drip.
-Limited urine output. Continued assessment.
-Optimization of hemodynamics
Anemia. Severe. Considering all the issues above I would like to see a higher hemoglobin. Could consider PRBCs but would await chest x-ray. Volume issues may be a challenge in this patient with respiratory insufficiency prior history of CHF and
acute kidney injury
Abdominal pain
-Exact etiology unclear. Patient in no distress this morning.
-GI and surgery following.
Elevated LFTs. Greater than 4000.
-Suspect component of shock liver
-Consider ultrasound right upper quadrant with Doppler
-Additional assessment by GI
Echo 01/04/2024: LVEF 55-60%, mild LVH, AoV sclerosis, dense MAC
Subjective: See summary above
Physical Exam
Vital Signs/Labs
Vital Signs
Temp Pulse Resp BP Pulse Ox
98.1 F 80 20 94/68 94
01/07/24 03:40 01/07/24 06:00 01/07/24 06:00 01/07/24 06:00 01/07/24 06:00
01/05/24 01/06/24 01/07/24
06:59 06:59 06:59
Actual Weight 57.334 kg 57.606 kg 64.5 kg
01/07/24 04:17
PT 19.7 Sec (11.4-14.6) H 01/07/24 04:17
INR 1.69 01/07/24 04:17
APTT 35.9 Sec (23.4-35.0) H 01/07/24 04:17
Magnesium 2.0 mg/dl (1.6-2.3) 01/07/24 04:17
01/02/24
15:25
Tth-K-Uaxojoruwyy Pept 7590
LAB Results
01/06/24 01/07/24 01/07/24
21:05 00:48 04:17
Troponin I 45.800 H* 36.600 H* 29.600 H*
Physical Exam
Constitutional: No acute distress and Other (Appears more awake less lethargic and states she is feeling better. Still appears pale and tired)
Cardiovascular: Rhythm & rate is regular and Other (No murmur rub or gallop)
Respiratory: Wheeze Absent, Rhonchi Absent and Other (Decreased at bases rare crackle)
GI: Soft and Non tender
Neuro/Psych: Alert, Oriented and Other
Other: Skin and Other
Data Reviewed
-
Date of Service: January 07, 2024
Medical Decision Making: Reviewed Test Results
Echo: Report Reviewed by me
Medical Tests (PFT, Pathology etc): Report Reviewed by me
Labs: Labs Reviewed by me
[2024-01-07 06:28] LABS: ALT (SGPT) 3523 U/L (0-35); AST (SGOT) 4580 U/L (14-36)
[2024-01-07] MEDS: DILAUDID 0.25 MG IV (08:10)
[2024-01-07] MEDS: ZOFRAN 4 MG IV (08:11)
[2024-01-07] MEDS: PROTONIX IV 40 MG IV ×2 (08:11→20:19)
[2024-01-07] MEDS: NSS (PRESERVATIVE FREE) 10 ML IV ×2 (08:11→20:19)
[2024-01-07] MEDS: HEPARIN 5000 UNITS SC ×2 (08:11→20:19)
--- NOTE | 2024-01-07 08:22 | W.PN.HOSP.TC ---
Today's Communication/Plan
-
see A/P
Cont ICU level of care
Assessment / Plan
Assessment / Plan
HPI: 78 y/o F with h/o PAF, CKD, cva, htn, hld, dm, anemia presented with b/l LE edema for two weeks. Her Lasix was discontinued while she was here last time due to kidney injury three weeks ago. Her primary care called her on Wednesday, asked her to
call nephrology for diuretics. She couldn't get hold off them. She started having pain. She took her 's hctz, thinking that would help.
On arrival, she has b/l LE edema. BNP in 0's. Received a dose of Lasix.
A/P:
# BL LE peripheral edema POA, likely related to acute on chronic diastolic heart failure
BNP 7500
chest x ray No radiographic findings to suggest CHF
BL LE US neg for DVT
Was on IV Lasix, now on hold due to worsening AR
Echo unrevealing: Normal biventricular size and systolic function without regional wall motion abnormality.
SPOTLIGHT OPERATOR Coreg, and nifedipine DCed due to shock (see below)
Card on board
# New onset diffuse abdominal pain, started overnight of 01/03. There is concern that this may be ischemic colitis
urgent CT AP with PO contrast was unrevealing, noted constipation
Pt was started with Miralax BID, Senokot-S BID, cont Dulcolax PRN
Cont empiric IV PPI BID
Avoid IV Morphine, stopped
GI on board
GS consulted
# Shock, ?distributive and possibly related to ischemic colitis
# Shocked liver
# Lactic acidosis, resolved
# Hyperkalemia, resolved
Pt was upgraded to ICU 01/05 and pressor Levophed started 01/05
Cont Bicarb drip per renal
Follow LFT, off Tylenol
Cover with ertapenem for possible ischemic colitis
Follow blood Cx and repeat urine Cx
Hyperkalemia was temporized and treated
GI following
# AR on CKD stage 3
SCr 2.1 from 1.0 (baseline)
IV Lasix on hold
Renal following
# Elevated Trop likely due to non-ischemia myocardial injury
Trop peaked at 45.8
Card following
# New R lung infiltrate
# New acute hypoxic respiratory failure
Pt placed on high flow NC, cont. She is NOT on home O2.
CXR 01/06 with New significant airspace disease within the right lung characterized by interstitial and patchy/more confluent airspace opacity within the peripheral right midlung. Findings suspicious for pneumonia versus asymmetric pulmonary edema.
Check MRSA Screen
elevated d dimer noted, repeat LE US neg for DVT, check VQ scan
Cont Ertapenem
ID CS
# anemia of chronic disease
hgb at 8.9
no active bleeding
ctm
# Recurrent ESBL Klebsiella UTI
Patient completed course of ertapenem
Urine culture was sent again from admission given pt continues to complain of intermittent dysuria, culture noted 100,000 CFU/Mixed meagan present, probable contamination
Pt was started with Pyridium for intermittent dysuria, discontinued
# CAD status post stents
# Paroxysmal atrial fibrillation per note
Continue aspirin
off Coreg
# Hypothyroidism
Continue levothyroxine
# Hyperlipidemia
off statin
# Type 2 diabetes
Holding metformin
Sliding scale
carb control diet
# Essential hypertension
Off SPOTLIGHT OPERATOR nifedipine/Coreg
# Trigeminal neuralgia
Continue Depakote
# Overactive bladder
Continue tolterodine
Pyridium on hold as stated above
# Chronic pain/fibromyalgia/depression
Continue duloxetine, mirtazapine
Continue tramadol
# Cough following diet
pt seen by [facility], recc GI given pt's complaints of GERD without official dx or prescribed tx, as well as reported difficulty/coughing/choking with solids more than liquids.
GI felt chronic intermittent dysphagia could be related to esophagitis or presbyesophagus. Recommend Protonix 40mg daily. Can also check outpt EGD/colonoscopy for iron deficiency.
# Clinical deconditioning due to shock
PT OT when able
Full code
DVT prophylaxis�heparin SQ
DW daughters at bedside
DW RN
Anticipated Discharge: > 48 hours
Subjective/Interval History
-
Date of Service: January 07, 2024
Objective Data
-
Labs:
Laboratory Results
01/06/24 01/06/24 01/06/24
21:04 21:05 23:15
WBC 15.3 H
Hgb 8.0 L
Hct 23.6 L
Plt Count 301
PT 20.2 H
INR 1.74
APTT 40.1 H
HCO3 17.6 L
Sodium 126 L
Potassium 5.2 H D
Chloride 88 L
Carbon Dioxide 30
BUN 69 H
Creatinine 2.0 H
Glucose 200 H
Calcium 7.3 L
Total Bilirubin Cancelled 0.4
AST Cancelled 4710 H*
ALT Cancelled 3524 H*
Alkaline Phosphatase Cancelled 61
01/07/24 01/07/24 01/07/24
00:48 04:17 07:55
WBC 14.3 H
Hgb 8.2 L
Hct 25.3 L
Plt Count 308
PT 19.7 H
INR 1.69
APTT 35.9 H
HCO3
Sodium 131 L 131 L Pending
Potassium 4.8 5.0 Pending
Chloride 103 102 Pending
Carbon Dioxide 17 L 16 L Pending
BUN 66 H 65 H Pending
Creatinine 2.1 H 2.1 H Pending
Glucose 204 H 179 H Pending
Calcium 8.1 L 7.9 L Pending
Total Bilirubin 0.4
AST 4580 H*
ALT 3523 H*
Alkaline Phosphatase 69
01/07/24 01/07/24 01/07/24
12:00 16:00 20:00
WBC
Hgb
Hct
Plt Count
PT
INR
APTT
HCO3
Sodium Cancelled Cancelled Cancelled
Potassium Cancelled Cancelled Cancelled
Chloride Cancelled Cancelled Cancelled
Carbon Dioxide Cancelled Cancelled Cancelled
BUN Cancelled Cancelled Cancelled
Creatinine Cancelled Cancelled Cancelled
Glucose Cancelled Cancelled Cancelled
Calcium Cancelled Cancelled Cancelled
Total Bilirubin
AST
ALT
Alkaline Phosphatase
Vital Signs:
Vital Signs
Temp Pulse Resp BP Pulse Ox
37.6 C 81 22 89/62 93
01/07/24 07:58 01/07/24 06:30 01/07/24 06:30 01/07/24 06:30 01/07/24 08:11
I&O
01/06/24 01/07/24 01/08/24
06:59 06:59 06:59
Intake Total 0 / 0 2573.8 / 2573.8
Output Total 200 / 200 140 / 140
Balance -200 / -200 2433.8 / 2433.8
Review of Systems
-
Abdomen/GI: Reports Abdominal Pain (diffuse, improved)
Physical Exam
-
General: Well Developed, Well Nourished and No Apparent Distress
HEENT: Normocephalic, Atraumatic, Moist Mucous Membranes and Oxygen (high flow NC 100%, 50 L)
Respiratory: Clear to Auscultation and Non Labored Respirations; Negative Accessory Resp Muscle Use
Cardiac: Regular Rhythm and S1/S2
GI: Soft, Nondistended, Normal Bowel Sounds and Tender (diffuse, mild)
Musculoskeletal: No Clubbing and No Cyanosis
Skin: Warm and Dry
Neuro: Awake and Alert
Psych: Calm and Intact Judgement/Insight
Data Reviewed
-
Diagnostic Radiology: Image personally visualized and interpreted and Report Reviewed by me
Labs: Labs Reviewed by me
[2024-01-07] MEDS: MIRALAX 17 GRAMS PO ×2 (08:41→20:19)
[2024-01-07] MEDS: ASPIR LOW (ENTERIC COATED) 81 MG PO (08:41)
[2024-01-07] MEDS: B COMPLEX w/VITAMIN C 1 CAPLET PO (08:41)
[2024-01-07] MEDS: CYMBALTA DELAYED RELEASE 60 MG PO (08:41)
[2024-01-07] MEDS: SODIUM BICARBONATE 650 MG PO (08:42)
[2024-01-07] MEDS: SENOKOT-S 1 TABLET PO ×2 (08:42→20:19)
--- NOTE | 2024-01-07 08:53 | PTCARENOTE ---
report received, assessments per work list. patient alert and oriented, c/o nausea and pain. medicated with prn's with good relief. unable to obtain blood pressure on left arm. cuff placed on right forearm in between iv and midline. Levophed per
work list. on high flow, pulse oximeter 93-96. coarse diminished bowel sounds. abdomen soft, hypoactive bowel sounds. able to take am medications. pure wick in place, voiding iva urine. daughters at bedside, updated with plan of care. ECHO at
bedside. hospitalist at bedside. orders received
[2024-01-07 09:05] LABS: Blood Urea Nitrogen 71 mg/dl (7-17); Calcium 8.2 mg/dl (8.4-10.2); Carbon Dioxide 22 mmol/L (22-30); Chloride 97 mmol/L (98-107); Estimated Creatinine Clearance 20 ml/min; Glucose 188 mg/dl (70-99); Potassium 5.2 mmol/L (3.5-5.1); Sodium 129 mmol/L (135-145); eGFR 23.97
--- NOTE | 2024-01-07 09:45 | W.PN.GS2 ---
Addendum entered and electronically signed by Natan England MD 01/07/24 12:20:
Patient seen and examined.
Reports abdominal pain slightly improved. Mild nausea, no vomiting. Afebrile. Passing flatus, no BM in days, no reports of bloody BMs.
Gen: NAD
Abd: soft, mild/moderate tenderness, mild distension, non-peritoneal
Patient is a 78 yo F with history of paroxysmal AF not on anticoagulation, HFpEF, hypertension, hyperlipidemia, CKD who presented for acute on chronic heart failure exacerbation with development newly abdominal pain.
Abdominal pain likely related to low flow ischemia
CT abd/pelvis without significant bowel distension, thickening, pneumatosis or free air. Possible transient bowel ischemia in setting of hypotension, diuresis, etc. Improving exam. Pain improving. No hematochezia.
Vitals stable on hiflo o2 and pressors.
Trop markedly elevated, Cards following.
Chemistries and LFT's indicative of shock liver and AR. Suspected UTI. Lactate normalized.
--No plans or indication at this time for emergent surgical intervention at this time
--Trend labs/exams
--Continued on ABX for GI (translocation of bacteria) and (?UTI) coverage
Original Note:
Today's Communication / Plan
-
follow exam/labs
Assessment / Plan
-
78-year-old female with history of paroxysmal AF not on anticoagulation , HFpEF, hypertension, hyperlipidemia, CKD who presented for acute on chronic heart failure exacerbation with development of abdominal pain. Trop markedly elevated, cards
following. Ct abd/pelvis without colitis/free air. Possible transient bowel ischemia in setting of hypotension, diuresis, etc. Improving exam. Pain improving. No hematochezia.
Vitals stable on hiflo o2 and pressors.
Chemistries and LFT's indicative of shock liver and AR. Suspected UTI
--No plans for emergent surgical intervention at this time
--Bowel regimen as per GI
--Trend labs/exams
--Continued on ABX for GI (translocation of bacteria) and (?UTI) coverage
Subjective Data
-
Date of Service: January 07, 2024
Patient seen and examined at bedside with Dr. England. Occasional mild nausea. Reports abdominal pain still present but gradually improving. Passing flatus, no BM's x3days.
Objective Data
-
Intake and Output
01/06/24 01/07/24 01/08/24
06:59 06:59 06:59
Intake Total 0 / 0 2573.8 / 2668.8 522 / 522
Output Total 200 / 200 140 / 140
Balance -200 / -200 2433.8 / 2528.8 522 / 522
Intake:
Oral fluids 0 / 0 60 / 60 240 / 240
IV fluids (Total) 1263.8 / 1358.8 282 / 282
Nss 1,000 ml @ 80 mls/hr IV . 640 / 640
[id number] ANGLE Rx#:[id number]
Sterile Water For Injection 300 / 300
1000 ml 1,000 ml @ 100 mls/hr
IV .[id number] ANGLE with Sodium
Bicarbonate 150 Meq Rx#:
[id number]
Sterile Water For Injection 80 / 160 240 / 240
1000 ml 1,000 ml @ 80 mls/hr IV
.[id number] ANGLE with Sodium
Bicarbonate 150 Meq Rx#:
[id number]
levo 243.8 / 258.8 42 / 42
IV piggybacks 1250 / 1250
Output:
Urine, Voided 200 / 200 140 / 140
Vital Signs
Temp Pulse Resp BP Pulse Ox
99.6 F 81 18 102/79 95
01/07/24 07:58 01/07/24 09:00 01/07/24 09:00 01/07/24 09:00 01/07/24 09:00
Lab Results
01/07/24 04:17
01/07/24 20:00
Calcium Cancelled 01/07/24 20:00
Magnesium 2.0 mg/dl (1.6-2.3) 01/07/24 04:17
Total Bilirubin 0.4 mg/dl (0.2-1.3) 01/07/24 04:17
Direct Bilirubin 0.4 mg/dl (0.0-0.4) 01/07/24 04:17
AST 4580 U/L (14-36) H* 01/07/24 04:17
ALT 3523 U/L (0-35) H* 01/07/24 04:17
Alkaline Phosphatase 69 U/L (38-126) 01/07/24 04:17
Total Protein 5.7 g/dl (6.3-8.2) L 01/07/24 04:17
Albumin 2.8 g/dl (3.5-5.0) L 01/07/24 04:17
Physical Exam
-
Pale, Ill appearing but in NAD
ABD soft, mild- moderate tenderness to lower abdomen, mildly distended, engagement quality consultant
--- NOTE | 2024-01-07 09:58 | CON.ID ---
Consultation
-
Date/Time Consultation Requested: 01/07/24 01/06/34 8:47
Date/Time Consultation Performed: 01/07/24 9:58
Requesting Provider: Dr Munoz
Performing Provider: Dr Elizabeth
Reason for Consultation: shock
Chief Complaint / Past History
History of Present Illness
Ms Teixeira is a 78 year olf emale with history of PAF, CKD, HFpEF, ESBL UTI, C difficile who presented here 01/01 (6 days ago) for increasing bilateral lower extremity edema, lower extremity pain. No fever, chills, chest pain, shortness of breath,
vomiting, diarrhea, abdominal pain, or dysuria at that time.
Admitted for diuresis. She has been afebrile since that time, bp with mild hypotension today - now resolved, wbc was initially normal lat 6.8, on 01/04 developed leukocytosis to 14.3 and today it remains 14.3, hgb 8.2 stable, plt 308. On arrival cr
1.0 and t bili 0.3, ast 18, alt 15, alk pohs 82, probnp 7590. She was felt to be in heart failure and given diuresis, however cr began to rise and she developed acidosis and periumbical/epigastric abdominal pain. CT a/p with constipation, K 6.5.
01/05 continued decompensation with MSOF, shock liver, ischemic bowel and NSTEMI. LFTs peaked yesterday with AST 4700, alt 3500. Troponins peaked at 45 and have down trended. Cr now 2.1. K 5.2, 01/06 UA >100 rbc/hpf and >100 wbc/hpf with many
bacteria. CXR with most likely asymetric pulmonary edema, less likely pneumonia Blood cultures x2 in progress, urine culture in progress, last urine culture 12/08/23 with ESBL kleb. Lipase and amylase both normal. She is currently on day 2 of
ertapenem.
Past History
Additional Past Medical History:
CAD with stents, left bundle branch block, paroxysmal atrial fibrillation, CVA, trigeminal neuralgia, sleep apnea, hypertension, hypothyroidism, hyperlipidemia, type 2 diabetes, depression, ESBL UTI, subdural hematoma, overactive bladder,
Past Surgical History: None
Additional Past Surgical History:
left shoulder replacement complicated by septic shoulder
Allergy History:
cephalexin Allergy (Verified 01/02/24 13:57)
Unknown
ciprofloxacin Allergy (Verified 01/02/24 13:57)
Hives
formaldehyde Allergy (Verified 01/02/24 13:57)
Shortness of Breath
Iodinated Contrast Media Allergy (Verified 01/02/24 13:57)
Hives
metoprolol Allergy (Verified 01/02/24 13:57)
Itching
Penicillins Allergy (Verified 01/02/24 13:57)
Unknown
piperacillin [From Zosyn] Allergy (Verified 01/02/24 13:57)
Unknown
pregabalin [From Lyrica] Allergy (Verified 01/02/24 13:57)
Hives
shellfish derived Allergy (Verified 01/02/24 13:57)
Unknown
Rwvjtad-GAI-PcZ Reductase Inhibitor Allergy (Verified 01/02/24 13:57)
Unknown
Sulfa (Sulfonamide Antibiotics) Allergy (Verified 01/02/24 13:57)
Unknown
tazobactam [From Zosyn] Allergy (Verified 01/02/24 13:57)
Unknown
vancomycin Allergy (Verified 01/02/24 13:57)
Rash
Medications Reviewed: Yes
Social History
Tobacco: Non-Smoker
Alcohol: None
Drug: None
Family History
Family History: Not Pertinent
Review of Systems
Review of Systems
General: Negative Fever or Chills
All systems: All other systems were reviewed and were negative
Vital Signs
Temp Pulse Resp BP Pulse Ox
99.6 F 81 18 102/79 95
01/07/24 07:58 01/07/24 09:00 01/07/24 09:00 01/07/24 09:00 01/07/24 09:00
Physical Exam
Physical Exam
Constitutional: No Acute Distress and Chronically Ill
Cardiovascular: Regular Rate and S1/S2; Negative Murmur or Rub
Pulmonary: Clear and Symmetric; Negative Wheezes, Rales or Rhonchi
Gastrointestinal: Soft, Non Tender, Non Distended and Normal Bowel Sounds
Genito-Urinary: Negative Suprapubic Tenderness
Skin: Warm and Dry; Negative Rash or Jaundice
Neurological: Awake
Psychological: Calm
Lab / Diagnostic Study Results
01/07/24 04:17
01/07/24 20:00
Abs Immat Gran (auto) 0.0 10^3/uL (0-0.05) 01/02/24 15:25
Absolute Neuts (auto) 3.8 10^3/uL (1.4-6.5) 01/02/24 15:25
Absolute Lymphs (auto) 1.6 10^3/uL (1.2-3.4) 01/02/24 15:25
Absolute Monos (auto) 0.7 10^3/uL (0.1-0.6) H 01/02/24 15:25
Absolute Basos (auto) 0.1 10^3/uL (0-0.2) 01/02/24 15:25
Immature Gran % 0.4 % (0-0.5) 01/02/24 15:25
Neutrophils % 55.8 % (42.2-75.2) 01/02/24 15:25
Lymphocytes % 23.7 % (20.5-51.1) 01/02/24 15:25
Monocytes % 10.9 % (1.7-9.3) H 01/02/24 15:25
Eosinophils % 8.0 % (0-6) H 01/02/24 15:25
Basophils % 1.2 % (0-2) 01/02/24 15:25
PT 19.7 Sec (11.4-14.6) H 01/07/24 04:17
INR 1.69 01/07/24 04:17
Lactic Acid 1.8 mmol/L (0.7-2.0) 01/07/24 04:17
Urine WBC >100 /HPF (0-5) A 01/07/24 02:45
Ur Squamous Epith Cells 0-2 /LPF (Few) 01/07/24 02:45
Microbiology Results
Micro:
01/07/24 09:49 MRSA Screen - Pending
Nose
01/07/24 06:42 Blood Culture - Pending
Blood/Venous
01/07/24 06:42 Blood Culture - Pending
Blood/Venous
01/07/24 02:45 Urine Culture - Pending
Urine
01/02/24 18:53 Urine Culture - Final
Urine
01/02/24 23:14 MRSA Screen - Final
Nose No Methicillin Resistant Staphylococcus aureus isolated.
Assessment / Plan
MSOF
Shock - probable ischemic, possibly with a septic component
AR
Shock Liver
Probable UTI
most likely asymetric pulmonary edema, less likely pneumonia
Suspected resolving ischemic colitis
Recent ESBL UTI
Reported history of C difficile
Numerous Stated Drug Intolerances/allergies
- blood cultures x2 in progress no growth to date
- UA with gross pyuria and hematuria; urine culture pending
- sputum culture if able to produce one
- abdominal pain resolved
- reports first and only episdoe of C diff was about 8 weeks ago at [facility]
- agree with ertapenem
- oral vancomycin BID ppx while on broad spectrum rx: it is not orally absorbed and stated allergy to IV vanc is not relevant
- follow clinically
Patient is critically ill
--- NOTE | 2024-01-07 10:31 | PTCARENOTE ---
reviewed with nuclear med and filenet developer in rounds regarding ordered VQ scan. per tech, patient would need to be off the high flow for 5-10 minutes for the study. max oxygen delivered during study is 10 liters. Per filenet developer, to hold VQ scan
until oxygen is able to be weaned for patient safety. obtaining bloood pressures now on legs due to IV access
[2024-01-07] MEDS: FIRVANQ 125 MG PO ×2 (11:03→22:19)
--- NOTE | 2024-01-07 11:18 | W.PN.UPDATE ---
Update Note
Progress Note Update
Patient's daughter's at the beside. They provide additional history that Eusebia has a h/o of MVD that was refused for cab due to risk several years ago, just had stenting. She again confirms no chest pain. She has suprapubic pain.
-Echo with ef 40-45%% with anterior and anterolateral hk. New from prior this admission. ECG with loss of r waves anteriorly.
-CXR reviewed with Dr Ramirez and now with right sided infiltrates. Marked LFT elevation is likely shock
-NSTEMI---unclear type but without cp and known mvd in a hypotensive patient seems type 2>>ACS. That said, I think treating with 48 hours of heparin indicated. Will not add back clopidogrel at this time, but consider when stable as this is a chronic
drug for her.
-given LV apex not well viewed, I will check contrast echo.
-Additionally suspect hfpef acute now, will trial a dose of lasix now that we have the luxury of levophed and she is still requiring 100% high flow.
d/w Dr Ramirez
CCT spent in her care by me today is 40 minutes.
--- NOTE | 2024-01-07 11:50 | CARDSERVLU ---
Echocardiogram with [facility] completed after protocol screening completed. Allergies verified.
Patent IV site: _R hand____
IV site flushed with 0.9% NaCl pre and post administration.
Diluted bolus method utilized to enhance visualization of ventricular le.
Total volume given: __2.5__ mL
Patient tolerated all procedures well without complications.
--- NOTE | 2024-01-07 11:54 | CON.INTV ---
Consultation
Consultation Request
Date/Time Consultation Requested: 01/07/2024
Date/Time Consultation Performed: 12/28/2023
Requesting Provider: Dr. Munoz
Performing Provider: Dr. Julio Miller
Reason for Consultation: Septic shock
Medical History
-
History of Present Illness:
78-year-old woman with history of paroxysmal atrial fibrillation, coronary artery disease with prior stents, not a candidate for coronary artery bypass per family report, chronic kidney disease, heart failure with preserved ejection fraction, prior
ESBL UTI, prior C. difficile presented initially on 01/02/2024 with increased bilateral lower extremity swelling, lower extremity pain. At that time denied any fevers.
Patient initially was diuresed.
Initially without leukocytosis. On 01/05/2024 developed leukocytosis of 14,000. After diuresis patient had a rise in creatinine. Developed also metabolic acidosis. Subsequently developed lower abdominal pain with hypotension. Required transfer
to the critical care unit on 01/06/2024. She has developed now multiorgan failure with acute kidney injury, possibly ischemic injury of the liver with significantly elevated LFTs, she was evaluated for possible bowel ischemia.
Today now troponin also is increased up to 40.
Chest x-ray this morning showed new asymmetric infiltrate. Patient denies any sputum production or hemoptysis.
She has been on antibiotics since onset of abdominal pain
Echocardiogram performed today abnormal compared to prior. Patient does have decreased LVEF with some motion wall abnormalities.
Per family members patient had a stent in the past and also he was evaluated for possible CABG but was not a candidate.
Currently denies shortness of breath.
She is hypoxemic with FiO2 of 100% on high flow oxygen. Does not appear in distress.
Past Medical History
Past Medical History: Other (See assessment and plan section)
Social History
Tobacco: Non-smoker
Alcohol: None
Drug: None
Personal:
Living: With Family
Family History
Family History: Reviewed & Not Pertinent
Allergies / Home Medications
Allergies
Allergy/AdvReac Type Severity Reaction Status Date / Time
cephalexin Allergy Unknown Verified 01/02/24 13:57
ciprofloxacin Allergy Hives Verified 01/02/24 13:57
formaldehyde Allergy Shortness Verified 01/02/24 13:57
of Breath
Iodinated Contrast Media Allergy Hives Verified 01/02/24 13:57
metoprolol Allergy Itching Verified 01/02/24 13:57
Penicillins Allergy Unknown Verified 01/02/24 13:57
piperacillin [From Zosyn] Allergy Unknown Verified 01/02/24 13:57
pregabalin [From Lyrica] Allergy Hives Verified 01/02/24 13:57
shellfish derived Allergy Unknown Verified 01/02/24 13:57
Zztcior-BCJ-TjG Reductase Allergy Unknown Verified 01/02/24 13:57
Inhibitor
Sulfa (Sulfonamide Allergy Unknown Verified 01/02/24 13:57
Antibiotics)
tazobactam [From Zosyn] Allergy Unknown Verified 01/02/24 13:57
vancomycin Allergy Rash Verified 01/02/24 13:57
Home Medications
�Medication �Instructions �Recorded �Confirmed �Last Taken �Type
aspirin 81 mg tablet,delayed 81 mg PO DAILY Blood Clot 05/17/23 01/02/24 01/02/24 History
release Prevention/Tx
atorvastatin 40 mg tablet (Lipitor) 40 mg PO DAILY High Cholesterol 05/17/23 01/02/24 01/02/24 History
carvedilol 3.125 mg tablet (Coreg) 3.125 mg PO DAILY Heart Failure 05/17/23 01/02/24 01/02/24 History
divalproex 500 mg tablet,delayed 500 mg PO QPM Neurological 05/17/23 01/02/24 12/08/23 History
release Condition
duloxetine 60 mg capsule,delayed 60 mg PO DAILY Neurological 05/17/23 01/02/24 01/02/24 History
release (Cymbalta) Condition
folic acid 1 mg tablet 1 mg PO HS Supplement 05/17/23 01/02/24 12/07/23 History
levothyroxine 112 mcg tablet 112 mcg PO DAILY Thyroid 05/17/23 01/02/24 01/02/24 History
(Synthroid)
magnesium oxide 400 mg PO DAILY Supplement 05/17/23 01/02/24 01/02/24 History
mirtazapine 15 mg tablet 15 mg PO HS Mental Health/Anxiety 05/17/23 01/02/24 12/07/23 History
vitamin B complex 1 tab PO DAILY Supplement 05/17/23 01/02/24 01/02/24 History
nifedipine 30 mg tablet,extended 30 mg PO DAILY Blood pressure #30 05/22/23 01/02/24 01/02/24 Rx
release tabs
tolterodine 2 mg tablet 2 mg PO HS Urinary Issue 12/08/23 01/02/24 12/07/23 History
tramadol 50 mg tablet 50 mg PO BIDPRN PRN moderate pain 12/08/23 01/02/24 01/01/24 History
metformin 500 mg tablet 500 mg PO BID #60 tabs 12/12/23 01/02/24 01/02/24 Rx
sodium bicarbonate 650 mg tablet 650 mg PO BID #60 tabs 12/12/23 01/02/24 01/02/24 Rx
acetaminophen 500 mg tablet 1,000 mg PO Q6HPRN PRN MILD PAIN 01/02/24 01/02/24 01/01/24 History
(Tylenol Extra Strength)
Review of Systems
-
History Source: Patient
All other systems: Negative unless noted
Vitals / Labs / Diagnostic Testing
Vital Signs
Temp Pulse Resp BP Pulse Ox
99.5 F 79 15 110/40 95
01/07/24 11:53 01/07/24 10:30 01/07/24 10:30 01/07/24 10:30 01/07/24 10:30
Lab Data
01/07/24 04:17
01/07/24 20:00
Laboratory Results
01/06/24 01/06/24 01/07/24
21:05 23:15 04:17
PT 20.2 H 19.7 H
INR 1.74 1.69
APTT 40.1 H 35.9 H
pH 7.23 L
pCO2 42 H
pO2 75 L
HCO3 17.6 L
O2 Delivery Level
Microbiology
01/02/24 18:53 Urine Urine Culture - Final
01/02/24 23:14 Nose MRSA Screen - Final
No Methicillin Resistant Staphylococcus aureus isolated.
Diagnostic Testing:
Physical Exam
-
HEENT: Normocephalic
Cardiovascular: S1/S2
Respiratory: Clear and Non-Labored Respirations
GI: Soft, Non Distended and Tender (Lower abdomen)
Neurology: Awake and Other (Follows commands)
Skin: Warm
General: Respiratory Distress (none at rest)
Assessment
-
78-year-old woman with multiple/complex medical history. Initially came with lower extremity edema. Diuresed on initial presentation. Subsequently developed acute kidney injury, hypotension and lower abdominal pain. Required vasopressors.
Evaluated for bowel ischemia, CT abdomen pelvis did not confirm this. Found to have shock liver, increased troponins, hypoxemia and transferred to the critical care unit for further evaluation and care.
Septic shock: UTI
Multiorgan failure
Acute kidney injury/metabolic acidosis
Shock liver suspected
Acute hypoxemic/hypercapnic respiratory failure: On high flow oxygen 100%
suspect asymmetric pulmonary edema versus acute lung injury.
Cannot rule out aspiration event-clinically not consistent with it.
Increased troponin: Suspect type II AL
New regional motion wall abnormality on echocardiogram 01/07/2024
Abdominal pain: Possibly from UTI/psych cystitis.
CT abdomen pelvis 01/05/2024: Moderate fecal material throughout the colon. Moderate diffuse bladder wall thickening. No other acute abnormality.
Conditions present prior admission:
Coronary artery disease with prior stents
Left bundle branch block
Paroxysmal atrial fibrillation
History of CVA
History of trigeminal neuralgia
Obstructive sleep apnea
Hypertension
Hypothyroidism
Hyperlipidemia
Type 2 diabetes
Depression
Prior UTI-ESBL
Left shoulder replacement complicated by septic shoulder
Subdural hematoma
Overactive bladder
Recurrent UTIs
Cholecystectomy
Hysterectomy
Left hip surgery
Assessment and plan:
Patient is critically ill, multiorgan dysfunction syndrome/septic shock. Requiring vasopressor, hypoxemia requiring high flow oxygen.
-
Suspect septic shock from UTI
CT abdomen pelvis with bladder thickening-possible cystitis
Abnormal UA
Agree with antibiotics per infectious disease
Follow cultures
-
Multiorgan failure
Transaminases greater than 4000: Suspect ischemic injury.
Trend LFTs
Patient is a status postcholecystectomy in the past
-
Complains of lower abdominal pain: Evaluated for bowel ischemia but CAT scan did not confirm
Continue with serial abdominal exam
Amylase and lipase are normal
Cannot rule out ischemic equivalent vs abdominal pain due to cystitis
Would keep n.p.o. for now.
-
Hypoxemic respiratory failure with asymmetric infiltrates. Likely pulmonary edema. Less likely pneumonia clinically.
ABG noted from 01/06/2024: 7.23//75.
Repeat ABG today. May need some BiPAP if respiratory component of acidosis has not corrected with bicarbonate drip.
-
Lower extremity Dopplers negative for DVT
With abnormal chest x-ray I doubt thromboembolic event. Unable to go down for VQ scan-will cancel it.
Acute lung injury from septic shock also with possibility.
Echocardiogram repeated today showed decreased LVEF with motion wall abnormality, possible type II ischemia due to septic shock in the setting of multivessel coronary artery disease-Per family in the past patient not a candidate for coronary artery
bypass but has history of stents.
Currently chest pain-free
Agree with diuresis if okay with nephrology
Heparin drip, follow PTT
At this point after discussing with Dr. Garcia on no need for emergent catheterization
Continue supportive care
-
Continue hemodynamic support with Levophed. Currently at 3 mics per minute
Follow renal function and electrolytes
Avoid nephrotoxins as able
[place] urinary output
-
Acute kidney injury: Likely ATN.
Nephrology has been consulted
Continue hemodynamic support
Metabolic acidosis: Continue bicarbonate drip. Also taking oral bicarbonate
Repeat BMP later today.
-
Patient has poor vascular access
Will ask interventional radiologist to place a PICC line.
Unable to use left arm.
Currently has a midline only
-
Hyperglycemia: May need insulin drip
Increase insulin sliding scale
-
N.p.o. for now
Head of the bed elevation
-
Discussed with cardiology, nursing and infectious disease.
Dr. Miller updated family at the bedside 01/07/2024
-
Critical care statement: A total of 50 minutes of critical care time was provided for this patient today. This includes management of unstable vital signs, evaluation of the patient at bedside, reviewing the patient's pertinent medical records
including ventilator settings, arterial blood gases, radiographs, microbiology, laboratory evaluations and discussion with primary team, critical care nursing, and respiratory therapy.

Imaging reviewed:
CT abdomen pelvis 01/05/2024:
Small bilateral pleural effusions.
Tiny pericardial effusion.
Prior cholecystectomy.
Enlarged newly calcified right adrenal mass. . Repeat MRI examination recommended.
Findings consistent with prior benign granulomatous disease.
Pancreatic calcifications suggesting chronic pancreatitis.
Moderate fecal material throughout the colon.
Moderate diffuse bladder wall thickening. This can be seen with cystitis or bladder outlet obstruction.
Lower extremity Dopplers 01/07/2024: No DVT
Chest x-ray 01/07/2024: New asymmetric infiltrates right along left. Pneumonia versus asymmetric pulmonary edema
[2024-01-07] MEDS: LASIX 40 MG IV (11:57)
[2024-01-07 11:59] LABS: Glucose - Point of Care 205 mg/dl (70-99)
[2024-01-07] MEDS: NOVOLOG FLEXPEN-MODERATE RESISTANCE 3 UNITS SC (12:03)
--- NOTE | 2024-01-07 12:18 | PTCARENOTE ---
patient reassessed. echo completed. VAT RN at bedside. voiced concerns with obtaining PICC access. d/w optical technician who states will contact [facility] for triple lumen placement. high flow wean per RT. levophed per work list. urine remains thick and
cloudy. stat dose lasix given
[2024-01-07 13:05] LABS: B.E. -2.8 mmol/L; HCO3 22.6 mmol/L (21-28); O2 Saturation % 97.4 % (94-98); PCO2 41 mmHg (32-35); PO2 79 mmHg (83-108); pH 7.35 (7.35-7.45)
[2024-01-07 13:47] LABS: Blood Urea Nitrogen 71 mg/dl (7-17); Calcium 7.9 mg/dl (8.4-10.2); Carbon Dioxide 25 mmol/L (22-30); Chloride 96 mmol/L (98-107); Estimated Creatinine Clearance 21 ml/min; Glucose 177 mg/dl (70-99); Potassium 4.9 mmol/L (3.5-5.1); Sodium 130 mmol/L (135-145); eGFR 25.41
--- NOTE | 2024-01-07 13:57 | PTCARENOTE ---
[facility] at bedside, triple lumen inserted. with head of bed flat, pulse oximeter 76. required max high flow in addition to non rebreather for line insertion. post placement cxr taken, once head of bed elevated, pulse oximeter improved. non rebreather
removed. family report that they noticed a facial droop. senior director insight at bedside. speech clear, this director underwriter sales unable to assess an obvious droop. patient with some confused conversation, but is oriented to person and place. Labor Custodian to reevaluate in
10 minutes
--- NOTE | 2024-01-07 14:03 | CM ---
CM following re: discharge planning.
Discussed in Rounds, reviewed pt's chart, met with pt and pt's family at bedside.
Per rounds meeting, pt is critically ill, multiorgan dysfunction syndrome/septic shock. Requiring vasopressor, requires 45 L HFNC with FIO2 85%, continue supportive care.
PT and OT have been recommending SNF level of care. Both pt and her family are aware and preferred to discuss it at later time.
D/C plan: most likely SNF when pt is medically stable.
CM will follow with discharge plan updates as hospitalization progresses
--- NOTE | 2024-01-07 14:28 | W.PN.UPDATE ---
Update Note
Progress Note Update
Per family they noted mild right-sided facial drooping.
I immediately came to evaluate the patient with nursing.
Patient alert, following commands.
Speech is clear.
No motor deficit to my exam.
Coughing on demand.
Facial drooping not evident to my exam or nursing exam.
As a precaution we will obtain CT of the head without IV contrast now.
Close neurological monitoring.
--- NOTE | 2024-01-07 14:51 | W.PN.NEPH.PH ---
Today's Communication / Plan
-
- hold diuretics
- hold sodium bicarb tabs
- tobin
Assessment/Plan
-
Impression:
Acute kidney injury
Baseline CKD3a (1.1)
History of recurrent UTI (ESBL)
Coronary artery disease with previous stenting procedure
Paroxysmal atrial fibrillation
History of CVA
Hypothyroidism
Diabetes mellitus type II
History of subdural hematoma
Trigeminal neuralgia
Multiple left shoulder surgeries with septic left shoulder hardware removal
Bladder dysfunction
Chronic pain/ fibromyalgia
Depression
Restless leg syndrome
Anemia
Hyperkalemia
Metabolic acidosis
Elevated LFTs
Abdominal pain
Plan:
I suspect acute kidney injury is prerenal given hypotension as well at this time.
urine studies notable for protein, blood and LEs
bladder scan with 125cc, Tobin placed
lactate elevated, LFTs up, initiated on pressors with improvement
Cr stable
hold diuretics if possible today
Serial BMP
d/c sodium bicarb tabs while on sodium bicarb gtt.
Potassium will be treated medically
-
-
Date of Service: January 07, 2024
CC / HPI / ROS
-
Chief Complaint:
AR
History of Present Illness:
c/f shock (septic vs. cardiac?)
on pressor support
hypoxic resp failure
Review of Systems:
on 100% hiflo
Labs
-
Labs:
WBC 14.3 10^3/uL (4.8-10.8) H 01/07/24 04:17
RBC 2.94 10^6/uL (4.20-5.40) L 01/07/24 04:17
Hgb 8.2 g/dL (12.0-16.0) L 01/07/24 04:17
Hct 25.3 % (37.0-47.0) L 01/07/24 04:17
Plt Count 308 10^3/uL (130-400) 01/07/24 04:17
Sodium Cancelled 01/07/24 20:00
Potassium Cancelled 01/07/24 20:00
Chloride Cancelled 01/07/24 20:00
Carbon Dioxide Cancelled 01/07/24 20:00
BUN Cancelled 01/07/24 20:00
Creatinine Cancelled 01/07/24 20:00
eGFR Cancelled 01/07/24 20:00
Glucose Cancelled 01/07/24 20:00
Calcium Cancelled 01/07/24 20:00
Vvk-C-Qlroquzkfrq Pept 7590 pg/ml 01/02/24 15:25
Albumin 2.8 g/dl (3.5-5.0) L 01/07/24 04:17
Physical Exam
-
Vital Signs:
Vital Signs
Temp Pulse Resp BP Pulse Ox
99.5 F 74 14 98/79 99
01/07/24 11:53 01/07/24 14:00 01/07/24 14:00 01/07/24 14:00 01/07/24 14:00
Cardiovascular:: Regular rate and rhythm
Respiratory:: Bilateral: Coarse
Lung Excursion:: Normal
Abdomen:: Nontender and Soft
Bowel Sounds:: Normal
Extremity Edema:: +2: Bilateral:
Tobin Catheter: Yes
--- NOTE | 2024-01-07 15:25 | PTCARENOTE ---
patient taken for stat head CT without issue with RT. remains on 100%/60 liters. complete care given. patient remains oriented, forgetful, no droop noted. patient moving fingers, stated she was praying with a rosary(does not have a rosary).
reoriented. rosary provided.
--- NOTE | 2024-01-07 15:41 | CHAP ---
Monsignor Zapata provided Sacrament of the Sick as family requested.
--- NOTE | 2024-01-07 16:19 | VATNOTE ---
TLC placed by [facility] in lieu of PICC line.
[2024-01-07] MEDS: DEPAKOTE (12 HR RELEASE) 500 MG PO (16:59)
--- NOTE | 2024-01-07 17:06 | PTCARENOTE ---
patient neuro assessment unchanged. orient to person and place. continues to have confused conversation. taking oral medications without signs aspiration. no facial droop noted.urine remains cloudy with sediment but improved since tobin initially
inserted
[2024-01-07] MEDS: NOVOLOG FLEXPEN-MODERATE RESISTANCE 1 UNITS SC (17:37)
[2024-01-07 17:45] LABS: Glucose - Point of Care 181 mg/dl (70-99)
[2024-01-07] MEDS: INVANZ 55 MG IV (20:18)
--- NOTE | 2024-01-07 21:43 | PTCARENOTE ---
Addendum entered by Venita Mckenzie RN 01/07/24 21:49:
. [place] draining yellow urine with sediment. B/L lower extremities sofia, weak pedal pulses, Knee high antiembolism stocking are on. Daughter at bedside. Pt turned Q2 with pillow. Plan of care on going.
Original Note:
Pt alert to self, otherwise confused, follows simple commands, easily redirected. VSS, NSR on monitor, remains on 6mcg Levophed for MAP >65. Bicarb gtt infusing 80ml/hr. Hiflow decreased to 45L/60%, pt tolerating well. Right IJ triple lumen, midline
and INTs patent. Hypoactive bowel sounds, pt complaining of abdominal pain in RLQ. Upon palpitation she says there is no pain
[2024-01-07] MEDS: FOLVITE 1 MG PO (22:18)
[2024-01-07] MEDS: REMERON 15 MG PO (22:18)
[2024-01-08] VITALS (70 sets, daily range): BP systolic 80–158; BP diastolic 30–88; PULSE 72; O2SAT 97; BMI 26.2
[2024-01-08] MEDS: NOVOLOG FLEXPEN-MODERATE RESISTANCE 1 UNITS SC ×2 (00:32→16:19)
[2024-01-08] MEDS: LEVOPHED 250 IV (00:39)
[2024-01-08 00:42] LABS: Glucose - Point of Care 185 mg/dl (70-99)
[2024-01-08 03:55] LABS: % Basophils 0.4 % (0-2); % Eosinophils 2.4 % (0-6); % Immature Granulocytes 0.4 % (0-0.5); % Lymphocytes 7.7 % (20.5-51.1); % Monocytes 4.4 % (1.7-9.3); % Neutrophils 84.7 % (42.2-75.2); Absolute Basophils 0.1 10^3/uL (0-0.2); Absolute Eosinophils 0.3 10^3/uL (0-0.7); Absolute Immature Granulocytes 0.1 10^3/uL (0-0.05); Absolute Lymphocytes 1.1 10^3/uL (1.2-3.4); Absolute Monocytes 0.6 10^3/uL (0.1-0.6); Hematocrit 25.1 % (37.0-47.0); Hemoglobin 8.2 g/dL (12.0-16.0); Mean Corp Hgb Conc. 32.7 g/dL (33.0-37.0); Mean Corpuscular Hgb 27.5 pg (27.0-31.0); Mean Corpuscular Volume 84.2 fL (81.0-99.0); Mean Platelet Volume 10.7 fL (7.4-10.4); Nucleated Red Blood Cells % 0.1 %; Platelet Count 269 10^3/uL (130-400); Red Blood Cell Count 2.98 10^6/uL (4.20-5.40); Red Cell Dist. Width 17.1 % (11.5-14.5); White Blood Cell Count 14.2 10^3/uL (4.8-10.8)
[2024-01-08 04:25] LABS: Albumin 2.5 g/dl (3.5-5.0); Alkaline Phosphatase 101 U/L (38-126); Blood Urea Nitrogen 69 mg/dl (7-17); Calcium 7.9 mg/dl (8.4-10.2); Carbon Dioxide 28 mmol/L (22-30); Chloride 96 mmol/L (98-107); Direct Bilirubin 0.5 mg/dl (0.0-0.4); Estimated Creatinine Clearance 23 ml/min; Glucose 170 mg/dl (70-99); Magnesium 1.9 mg/dl (1.6-2.3); Potassium 4.1 mmol/L (3.5-5.1); Sodium 133 mmol/L (135-145); Total Bilirubin 0.5 mg/dl (0.2-1.3); Total Protein 5.3 g/dl (6.3-8.2); eGFR 28.84
[2024-01-08 04:46] LABS: ALT (SGPT) 2664 U/L (0-35); AST (SGOT) 1629 U/L (14-36)
--- NOTE | 2024-01-08 05:53 | PTCARENOTE ---
Titrating Levo per protocol to keep MAP >65. Hiflow decreased by RT, 45L/45%, pt tolerating well. Pt had moderate amount of loose light brown stool. 2 hour turns with pillows.
[2024-01-08] MEDS: NOVOLOG FLEXPEN-MODERATE RESISTANCE 3 UNITS SC ×2 (06:09→12:30)
[2024-01-08] MEDS: NSS 1000 IV ×2 (06:09→18:09)
[2024-01-08] MEDS: SYNTHROID 112 MCG PO (06:09)
[2024-01-08 06:20] LABS: Glucose - Point of Care 210 mg/dl (70-99)
--- NOTE | 2024-01-08 07:58 | W.PN.GI.CBS2 ---
Today's Communication / Plan
-
Please assessment plan for details.
Assessment / Plan
-
1. Abdominal pain: Lower, acute, in the setting of hypotension, with markedly positive UA and history of UTIs in the past, most likely secondary to cystitis/UTI with underlying sepsis. While ischemic bowel is still a consideration she is much
improved making this much less likely, and again UA with greater than 100 WBCs. Will start clear liquids and continue observation.
2. Elevated LFTs: Consistent with low flow/shock, improving, again without any further GI symptoms. Will continue to trend for now.
Subjective
Subjective
Date of Service: January 08, 2024
Patient feeling much better overall, no abdominal pain, fever or chills. Blood cultures and urine culture still pending though negative so far.
Objective
Data Reviewed
Laboratory Data:
Laboratory Results
01/08/24 03:39
01/08/24 03:39
Laboratory Results
PT 19.7 Sec (11.4-14.6) H 01/07/24 04:17
INR 1.69 01/07/24 04:17
APTT 35.9 Sec (23.4-35.0) H 01/07/24 04:17
Magnesium 1.9 mg/dl (1.6-2.3) 01/08/24 03:39
Total Bilirubin 0.5 mg/dl (0.2-1.3) 01/08/24 03:39
AST 1629 U/L (14-36) H* 01/08/24 03:39
ALT 2664 U/L (0-35) H* 01/08/24 03:39
Alkaline Phosphatase 101 U/L (38-126) 01/08/24 03:39
Amylase 55 U/L (30-110) 01/06/24 21:05
Lipase 121 U/L (23-300) 01/06/24 21:05
Vital Signs and I&O:
Vital Signs
Temp Pulse Resp BP Pulse Ox
99.5 F 78 16 125/49 98
01/08/24 07:32 01/08/24 05:15 01/08/24 05:15 01/08/24 05:15 01/08/24 05:15
I&O
01/07/24 01/08/24 01/09/24
06:59 06:59 06:59
Intake Total 2573.8 / 2668.8 2776.1 / 2776.1
Output Total 140 / 140 3050 / 3050
Balance 2433.8 / 2528.8 -273.9 / -273.9
Physical Exam
Physical Exam
General: NAD
Abdomen: normal bowel sounds, soft, no tenderness, no masses or bruits, no ascites
[2024-01-08] MEDS: B COMPLEX w/VITAMIN C 1 CAPLET PO (08:10)
[2024-01-08] MEDS: NSS (PRESERVATIVE FREE) 10 ML IV ×2 (08:10→20:11)
[2024-01-08] MEDS: ASPIR LOW (ENTERIC COATED) 81 MG PO (08:10)
[2024-01-08] MEDS: SENOKOT-S 1 TABLET PO (08:10)
[2024-01-08] MEDS: CYMBALTA DELAYED RELEASE 60 MG PO (08:10)
--- NOTE | 2024-01-08 08:10 | PTCARENOTE ---
Assumed care of pt at 0715 following shift report. Pt woken for assessment and care. Denies c/o pain. Pox 99% on Hiflow 45l/45%. No cough. Denies SOB. Resp Therapy to taper pt's O2. Hygiene and comfort care provided. Call natalie w/in pt reach.
[2024-01-08] MEDS: MIRALAX 17 GRAMS PO (08:12)
[2024-01-08] MEDS: HEPARIN 5000 UNITS SC ×2 (08:12→20:11)
[2024-01-08] MEDS: PROTONIX IV 40 MG IV ×2 (08:12→20:11)
--- NOTE | 2024-01-08 08:43 | W.PN.ID1 ---
Date of Service
Date of Service: January 08, 2024
Today's Communication
Continue antibiotics.
Assessment / Plan
MSOF
Shock - probable ischemic, possibly with a septic component
AR
Shock Liver
Suspected UTI
most likely asymetric pulmonary edema, less likely pneumonia
Suspected resolving ischemic colitis
Recent ESBL UTI
Reported history of C difficile
Numerous Stated Drug Intolerances/allergies
- blood cultures x2 in progress no growth to date
- UA with gross pyuria and hematuria; urine culture pending
- sputum culture if able to produce one
- follow wbc / temps
- Continue ertapenem
- Continue oral vancomycin BID ppx while on broad spectrum rx
- follow clinically
Patient remains critically ill in ICU
����������������������������������������������������������
Chief Complaint
-: Clinical Sepsis
Subjective / Review of Systems
Patient seen and examined. No significant changes overnight. Fever to 100.6 degrees noted last evening. Patient currently on high flow O2
Vital Signs / Physical Exam
Vital Signs
Vital Signs
Temp Pulse Resp BP Pulse Ox
99.5 F 78 16 125/49 98
01/08/24 07:32 01/08/24 05:15 01/08/24 05:15 01/08/24 05:15 01/08/24 05:15
Physical Exam
Constitutional: Chronically Ill and Non-toxic
Eyes: Sclera Anicteric
Cardiovascular: Irregular Rate and S1/S2; Negative S3/S4
Pulmonary: Coarse and Non Labored
Gastrointestinal: Soft, Non Distended, Normal Bowel Sounds, No Rebound and No Guarding
Genito-Urinary: [place] and Clear Urine
Extremities: Edema; Negative Cyanosis or Erythema
Psychological: Calm
Objective Data
Lab Data
Lab Results
01/08/24 03:39
01/08/24 03:39
PT 19.7 Sec (11.4-14.6) H 01/07/24 04:17
INR 1.69 01/07/24 04:17
APTT 35.9 Sec (23.4-35.0) H 01/07/24 04:17
Estimated Creat Clear 23 ml/min 01/08/24 03:39
Lactic Acid 1.8 mmol/L (0.7-2.0) 01/07/24 04:17
Total Bilirubin 0.5 mg/dl (0.2-1.3) 01/08/24 03:39
AST 1629 U/L (14-36) H* 01/08/24 03:39
ALT 2664 U/L (0-35) H* 01/08/24 03:39
Alkaline Phosphatase 101 U/L (38-126) 01/08/24 03:39
Amylase 55 U/L (30-110) 01/06/24 21:05
Most recent labs reviewed.
Micro Results:
01/07/24 06:42 Blood Culture - Preliminary
Blood/Venous No Growth in 24 hours- Final report to follow
01/07/24 06:42 Blood Culture - Preliminary
Blood/Venous No Growth in 24 hours- Final report to follow
01/07/24 09:49 MRSA Screen - Pending
Nose
01/07/24 02:45 Urine Culture - Pending
Urine
01/02/24 18:53 Urine Culture - Final
Urine
01/02/24 23:14 MRSA Screen - Final
Nose No Methicillin Resistant Staphylococcus aureus isolated.
--- NOTE | 2024-01-08 09:00 | W.PN.CD ---
Today's Communication / Plan
-
continue to wean vasopressors able
continue supportive care
Impression / Plan
-
78-year-old female with history of paroxysmal AF not on anticoagulation , HFpEF, hypertension, hyperlipidemia, CKD who is here today for acute on chronic heart failure exacerbation. Unfortunately had abdominal pain has developed now with
increasing leukocytosis.
01/06/2024 patient had additional decompensation. Severe hypokalemia with a potassium of 7 , lactic acidosis, AR with creatinine up to 2.3 and transaminitis and relatively low blood pressure.. Patient transferred to ICU.
Patient transferred to the ICU. Relatively low blood pressures with l severe hyperkalemia with a potassium of 7.0, lactic acidosis, elevated creatinine to 2.3 and elevated LFTs patient had been evaluated by GI as well as general surgery. Patient
had some complaints of abdominal pain/lower abdominal pain which raises some question of possibility of ischemic bowel. Seen by general surgery. Patient not felt at that time to have an indication for surgery and it was not clear that the patient
had ischemic bowel. Transferred to ICU. Exact cause of decompensation was unclear. Possibility of sepsis or intra-abdominal process entertained. No complaints of shortness of breath or chest pain at that time and no ischemic ECG changes. First
troponin in ICU was 45 which appears to been the peak and is since trended down. Patient has had increased O2 requirements and is also required pressors with Levophed at 5. However patient is currently feeling better. LFTs have further risen with
AST 4700 creatinine remains at 2.1.
NSTEMI: Type II vs ACS
-no cp, anterior rwave loss
-difficult to say Type 2 vs ACS but given hypotension in a severe vasculopath with known MVD I favor the former. Sanchez said, after reconsideration, given no cp, clinical improvement and abdominal concerns decided against heprain , continue asa.
Typically on clopidogrel but until clinical scenarios stablizes will hold it.
-no active chest pain, with AR will avoid cath currently could consider in the future given new CMY.
HFrEF:
-25-30%
-eventual diuresis when ok with renal
-eventual GDMT
Hypotension. Suspect multifactorial with septic shock compounded by new element of cardiogenic shock
-wean vasopressors as able
Acute hypoxemic/hypercapnic Respiratory failure:
-high oxygen requirements are improving now down to 4 L
-all chf vs ALI
-eventual diuresis
AR on CKD with development of severe hyperkalemia.
-likely ATN with hypotension
-renal following
-cr improving
Abdominal pain
-Exact etiology unclear. Patient in no distress this morning.
-Seems consistent with UTI but GI/surgery following as Ischemic bowel in consideration
Elevated LFTs. Greater than 4000.
-Suspect component of shock liver
-improving
History of PAF listed. Not on anticoagulation given frequent falls remains in sinus monitor on telemetry
Data:
CLARA 01/07/24 with contrast:
CONCLUSIONS
Severely reduced left ventricular systolic function. Left ventricular ejection
fraction is 25-30% by Nolan's method of discs.
Anterior, basal to mid lateral le and apex are hypokinetic, no evidence of
LV thrombus with contrast.
Normal right ventricular size and function.
Mild pulmonary hypertension.
Compared to the prior study earlier today, the ejection fraction is worsened on
Contrast images, but overall appears similar. But, I suspect the difference is
due to image quality rather than further decline of LV function.
Echo 01/04/2024: LVEF 55-60%, mild LVH, AoV sclerosis, dense MAC
Subjective: she is feeling better, no abdominal pain today. no cp or sob.
Physical Exam
Vital Signs/Labs
Vital Signs
Temp Pulse Resp BP Pulse Ox
99.5 F 78 16 125/49 98
01/08/24 07:32 01/08/24 05:15 01/08/24 05:15 01/08/24 05:15 01/08/24 05:15
01/07/24 01/08/24 01/09/24
06:59 06:59 06:59
Actual Weight 64.5 kg 62.9 kg
01/08/24 03:39
01/08/24 03:39
PT 19.7 Sec (11.4-14.6) H 01/07/24 04:17
INR 1.69 01/07/24 04:17
APTT 35.9 Sec (23.4-35.0) H 01/07/24 04:17
Magnesium 1.9 mg/dl (1.6-2.3) 01/08/24 03:39
01/02/24
15:25
Igy-J-Gceqnctzqap Pept 7590
LAB Results
01/06/24 01/07/24 01/07/24
21:05 00:48 04:17
Troponin I 45.800 H* 36.600 H* 29.600 H*
01/07/24 01/07/24
10:04 10:40
Troponin I Cancelled 24.600 H*
Physical Exam
Constitutional: No acute distress
Cardiovascular: Rhythm & rate is regular, Pedal edema is absent and JVD pressure is normal
Respiratory: Respiratory effort normal, Lungs clear to auscul., Wheeze Absent, Crackles Absent and Rhonchi Absent
GI: Soft
Neuro/Psych: AO x 3
Data Reviewed
-
Date of Service: January 08, 2024
Medical Decision Making: Review of Case with other Provider (Dr Munoz, no treatment dose heparin eventual cath and diuresis)
Medical Tests (PFT, Pathology etc): Discussed with Family (Daugther at bedside reviewed echo and plan for eventual cath)
--- NOTE | 2024-01-08 09:09 | W.PN.HOSP.TC ---
Today's Communication/Plan
-
see A/P
Assessment / Plan
Assessment / Plan
HPI: 78 y/o F with h/o PAF, CKD, cva, htn, hld, dm, anemia presented with b/l LE edema for two weeks. Her Lasix was discontinued while she was here last time due to kidney injury three weeks ago. Her primary care called her on Wednesday, asked her to
call nephrology for diuretics. She couldn't get hold off them. She started having pain. She took her 's hctz, thinking that would help.
On arrival, she has b/l LE edema. BNP in 0's. Received a dose of Lasix.
A/P:
# BL LE peripheral edema POA, likely related to acute on chronic diastolic heart failure
BNP 7500
chest x ray No radiographic findings to suggest CHF
BL LE US neg for DVT
Was on IV Lasix, now on hold due to worsening AR
Echo unrevealing: Normal biventricular size and systolic function without regional wall motion abnormality.
DOORPERSON Coreg and nifedipine DCed due to shock (see below)
Card on board
# New onset diffuse abdominal pain, started overnight of 01/03. There was concern of ischemic colitis at that time, now appears resolving
urgent CT AP with PO contrast was unrevealing, noted constipation
Pt was started with Miralax BID, Senokot-S BID, cont Dulcolax PRN
Cont empiric IV PPI BID
GI on board
GS consulted
# Shock, ?distributive/related to ischemic colitis vs septic (with ?UTI)
# Shocked liver
# Lactic acidosis, resolved
Pt was upgraded to ICU 01/05 and pressor Levophed started 01/05
Cont Levophed
s/p Bicarb drip per renal
LFT improving although still very high in the thousands
off Tylenol
Blood Cx negative, follow urine Cx
Cont ertapenem
Cont empiric PO vanco BID for h/o C diff colitis
ID following
# Hyperkalemia, temporized and treated
# AR on CKD stage 3
SCr 2.1 -> 1.8; from 1.0 (baseline)
IV Lasix on hold
Renal following
# Elevated Trop likely due to non-ischemia myocardial injury
# h/o CAD/multivessel disease and was refused bypass surgery at that time due to several risk factors
Echo with EF 40-45%% with anterior and anterolateral hypokinesis. New from prior this admission.
Trop peaked at 45.8
Card following
# New R lung infiltrate from 01/06
# New acute hypoxic respiratory failure
Pt placed on high flow NC, cont. She is NOT on home O2.
CXR 01/06 with New significant airspace disease within the right lung characterized by interstitial and patchy/more confluent airspace opacity within the peripheral right midlung. Findings suspicious for pneumonia versus asymmetric pulmonary edema.
Follow MRSA Screen
elevated d dimer noted, repeat LE US neg for DVT, check VQ scan when able (ordered)
Cont Ertapenem as above
ID on board as above
# anemia of chronic disease
hgb at 8.9
no active bleeding
ctm
# Recurrent ESBL Klebsiella UTI
Patient completed course of ertapenem
Urine culture was sent again from admission given pt continues to complain of intermittent dysuria, culture noted 100,000 CFU/Mixed meagan present, probable contamination
Pt was started with Pyridium for intermittent dysuria, discontinued
# CAD status post stents
# Paroxysmal atrial fibrillation per note
Continue aspirin
off Coreg
# Hypothyroidism
Continue levothyroxine
# Hyperlipidemia
off statin
# Type 2 diabetes
Holding metformin
Sliding scale
carb control diet
# Essential hypertension
Off DOORPERSON nifedipine/Coreg
# Trigeminal neuralgia
Continue Depakote
# Overactive bladder
Continue tolterodine
Pyridium on hold as stated above
# Chronic pain/fibromyalgia/depression
Continue duloxetine, mirtazapine
Continue tramadol
# Cough following diet
pt seen by [facility], recc GI given pt's complaints of GERD without official dx or prescribed tx, as well as reported difficulty/coughing/choking with solids more than liquids.
GI felt chronic intermittent dysphagia could be related to esophagitis or presbyesophagus. Recommend Protonix 40mg daily. Can also check outpt EGD/colonoscopy for iron deficiency.
# Clinical deconditioning due to shock
PT OT when able
Full code
DVT prophylaxis�heparin SQ
DW daughter at bedside
DW Card
Anticipated Discharge: > 48 hours
Subjective/Interval History
-
Date of Service: January 08, 2024
Objective Data
-
Labs:
Laboratory Results
01/08/24
03:39
WBC 14.2 H
Hgb 8.2 L
Hct 25.1 L
Plt Count 269
Sodium 133 L
Potassium 4.1
Chloride 96 L
Carbon Dioxide 28
BUN 69 H
Creatinine 1.8 H
Glucose 170 H
Calcium 7.9 L
Total Bilirubin 0.5
AST 1629 H*
ALT 2664 H*
Alkaline Phosphatase 101
Vital Signs:
Vital Signs
Temp Pulse Resp BP Pulse Ox
37.5 C 78 16 125/49 98
01/08/24 07:32 01/08/24 05:15 01/08/24 05:15 01/08/24 05:15 01/08/24 05:15
I&O
01/07/24 01/08/24 01/09/24
06:59 06:59 06:59
Intake Total 2573.8 / 2668.8 2776.1 / 2776.1
Output Total 140 / 140 3050 / 3050
Balance 2433.8 / 2528.8 -273.9 / -273.9
Review of Systems
-
Abdomen/GI: Reports Abdominal Pain (diffuse, improved)
Physical Exam
-
General: Well Developed, Well Nourished, Respiratory Distress (mildd) and Appears Chronically Ill
HEENT: Normocephalic, Atraumatic, Moist Mucous Membranes and Oxygen (4L NC)
Respiratory: Clear to Auscultation and Non Labored Respirations; Negative Accessory Resp Muscle Use
Cardiac: Regular Rhythm and S1/S2
GI: Soft, Nondistended and Normal Bowel Sounds
Musculoskeletal: No Clubbing and No Cyanosis
Skin: Warm and Dry
Neuro: Awake
Psych: Calm
Data Reviewed
-
Diagnostic Radiology: Image personally visualized and interpreted and Report Reviewed by me
CT Scan: Report Reviewed by me
Labs: Labs Reviewed by me
--- NOTE | 2024-01-08 10:13 | PTOTSP ---
ST Follow-Up
Pt currently displayed oral, pharyngeal, and esophageal phases that are generally within functional limits to safely continue with a clear liquid diet.
Recommendations:
- Continue with clear liquid diet, per GI.
- Aspiration & reflux precautions: Only feed when fully awake and alert, HOB fully upright for all PO intake and for at least 60 minutes after PO intake, alternate liquid and solids, and feed slowly. Discontinue PO intake if pt is c/o feeling of
fullness - do not over-feed.
- INTERACTIVE DEVELOPER will continue to follow to ensure pt is safely consuming her clear liquid diet as well as to re-assess candidacy for diet upgrades once cleared by GI/general surgery/hospitalist.
--- NOTE | 2024-01-08 11:37 | W.PN.GS2 ---
Today's Communication / Plan
-
--ADAT
--Continued on ABX for GI (translocation of bacteria) and (UTI) coverage
--No plans for emergent surgical intervention at this time
--Please call with any questions or concerns
Assessment / Plan
-
78-year-old female with history of paroxysmal AF not on anticoagulation , HFpEF, hypertension, hyperlipidemia, CKD who presented for acute on chronic heart failure exacerbation with development of abdominal pain.
CT abd/pelvis without colitis/free air. Possible transient bowel ischemia in setting of hypotension, diuresis, etc. Improving exam. Pain improving. No hematochezia.
Vitals stable on hiflo o2 and pressors.
Chemistries and LFT's indicative of shock liver and AR.
Suspected UTI based on UA
--ADAT
--Continued on ABX for GI (translocation of bacteria) and (UTI) coverage
--No plans for emergent surgical intervention at this time
--Please call with any questions or concerns
Subjective Data
-
Date of Service: January 08, 2024
Sleeping comfortably. Abdominal pain improved. No nausea or vomiting. Nonbloody BM. Low-grade fever yesterday evening.
Objective Data
-
Intake and Output
01/07/24 01/08/24 01/09/24
06:59 06:59 06:59
Intake Total 2573.8 / 2668.8 2776.1 / 2776.1
Output Total 140 / 140 3050 / 3050
Balance 2433.8 / 2528.8 -273.9 / -273.9
Intake:
Oral fluids 60 / 60 360 / 360
IV fluids (Total) 1263.8 / 1358.8 2416.1 / 2416.1
Nss 1,000 ml @ 80 mls/hr IV . 640 / 640
[id number] [facility] Rx#:[id number]
Sterile Water For Injection 300 / 300
1000 ml 1,000 ml @ 100 mls/hr
IV .[id number] ANGLE with Sodium
Bicarbonate 150 Meq Rx#:
[id number]
Sterile Water For Injection 80 / 160 1920 / 1920
1000 ml 1,000 ml @ 80 mls/hr IV
.[id number] ANGLE with Sodium
Bicarbonate 150 Meq Rx#:
[id number]
levo 243.8 / 258.8 496.1 / 496.1
IV piggybacks 1250 / 1250
Output:
Urine, [place] 2900 / 2900
Urine, Voided 140 / 140 150 / 150
Other:
How many times incontinent 1
SMALL amount urine
Vital Signs
Temp Pulse Resp BP Pulse Ox
99.5 F 78 16 125/49 99
01/08/24 07:32 01/08/24 05:15 01/08/24 05:15 01/08/24 05:15 01/08/24 09:14
Lab Results
01/08/24 03:39
01/08/24 03:39
Calcium 7.9 mg/dl (8.4-10.2) L 01/08/24 03:39
Magnesium 1.9 mg/dl (1.6-2.3) 01/08/24 03:39
Total Bilirubin 0.5 mg/dl (0.2-1.3) 01/08/24 03:39
Direct Bilirubin 0.5 mg/dl (0.0-0.4) H 01/08/24 03:39
AST 1629 U/L (14-36) H* 01/08/24 03:39
ALT 2664 U/L (0-35) H* 01/08/24 03:39
Alkaline Phosphatase 101 U/L (38-126) 01/08/24 03:39
Total Protein 5.3 g/dl (6.3-8.2) L 01/08/24 03:39
Albumin 2.5 g/dl (3.5-5.0) L 01/08/24 03:39
Physical Exam
-
Gen: NAD
Abd: soft, minimal tenderness, ND, non-peritoneal
--- NOTE | 2024-01-08 11:58 | W.PN.INTV ---
Today's Communication / Plan
Recommendations
Continue gentle hydration
Oral bicarbonate
Antibiotics
Wean off Levophed as needed-
Continue oxygen supplementation
Eventual diuresis hold for now as patient is vasopressors and recovering from kidney insufficiency
Insulin sliding scale
Clear liquids
Serial abdominal exam
Assessment
-
78-year-old woman with multiple/complex medical history. Initially came with lower extremity edema. Diuresed on initial presentation. Subsequently developed acute kidney injury, hypotension and lower abdominal pain. Required vasopressors.
Evaluated for bowel ischemia, CT abdomen pelvis did not confirm this. Found to have shock liver, increased troponins, hypoxemia and transferred to the critical care unit for further evaluation and care.
Septic shock: UTI
Urine culture with Klebsiella pneumonia ESBL
Systolic cardiomyopathy: Possibly ischemic-contributing to shock
Echocardiogram 01/07/2024: Severely reduced LVEF 25/30%. Anterior, basal to mid lateral wall and apex hypokinetic no evidence for LV thrombus. Normal biventricular size and function. Mild pulmonary hypertension.
Acute hypoxemic/hypercapnic respiratory failure: On high flow oxygen 100%
suspect asymmetric pulmonary edema versus acute lung injury.
Cannot rule out aspiration event-clinically not consistent with it.
Increased troponin: Suspect type II GA vs ACS
New regional motion wall abnormality on echocardiogram 01/07/2024 / new decline on LVEF.
Prior history of coronary artery disease with stents in the past. Multivessel coronary artery disease per family report
Multiorgan failure
Acute kidney injury/metabolic acidosis
Shock liver suspected
LFTs improving
Abdominal pain: Possibly from UTI/ cystitis.
CT abdomen pelvis 01/05/2024: Moderate fecal material throughout the colon. Moderate diffuse bladder wall thickening. No other acute abnormality.
Less likely bowel ischemia as lactic acid has cleared as of 01/07/2024.
Conditions present prior admission:
Coronary artery disease with prior stents
Left bundle branch block
Paroxysmal atrial fibrillation
History of CVA
History of trigeminal neuralgia
Obstructive sleep apnea
Hypertension
Hypothyroidism
Hyperlipidemia
Type 2 diabetes
Depression
Prior UTI-ESBL
Left shoulder replacement complicated by septic shoulder
Subdural hematoma
Overactive bladder
Recurrent UTIs
Cholecystectomy
Hysterectomy
Left hip surgery
Assessment and plan:
Patient is critically ill, multiorgan dysfunction syndrome/septic shock. Requiring vasopressor, hypoxemia requiring high flow oxygen.
-
Suspect septic shock from UTI/possibly also cardiogenic component given new decrease on LVEF
CT abdomen pelvis with bladder thickening-possible cystitis
Urine culture with Klebsiella ESBL
Continue antibiotics per infectious disease
Follow cultures
Lactic acid has cleared as of 01/07/2024
-
Currently on Levophed at 4 mics per minute. Hopefully can wean off.
Hold antihypertensive
Hold diuresis
Continue vasopressors to target mean arterial blood pressure-65 mmHg
-
Shock liver:
Transaminases greater than 4000: Suspect ischemic injury. LFTs improved
Trend LFTs
Patient is a status postcholecystectomy in the past
-
Lower abdominal pain: Evaluated for bowel ischemia but CAT scan did not confirm
Less likely bowel ischemia as lactic acid cleared.
Continue with serial abdominal exam
Amylase and lipase are normal
Cannot rule out cardiac ischemic equivalent vs abdominal pain due to cystitis
Surgery has signed off
Diet has been advanced
-
Hypoxemic respiratory failure with asymmetric infiltrates. Likely pulmonary edema. Less likely pneumonia clinically.
Currently on 4 L nasal cannula. Appears comfortable.
ABG noted from 01/06/2024: 7.23/42/75.
Repeat ABG 01/07/2024: Improved hypercapnia
No need for BiPAP
Diuresis when renal function improves
Encourage incentive spirometry
-
Lower extremity Dopplers negative for DVT
No need for VQ scan. Less likely thromboembolic event.
Acute lung injury from septic shock also with possibility.
-
Echocardiogram repeated 01/07/2024 showed sharad decreased LVEF with motion wall abnormality, possible type II ischemia due to septic shock in the setting of multivessel coronary artery disease-Per family in the past patient not a candidate for coronary
artery bypass but has history of stents.
Currently chest pain-free
Heparin drip never been started-risk outweigh benefit.
Continue conservative management
May consider cardiac catheterization in the future if renal function improved.
Cardiology correspondence reviewed
-
Acute kidney injury: Likely ATN.
Creatinine decreased to 1.8
Nephrology has been consulted
Continue hemodynamic support
Oral bicarbonate
Gentle hydration
Follow BMP
-
Hyperglycemia:
Increase insulin sliding scale
-
Clear liquid diet
Head of the bed elevation
-
Discussed with cardiology, nursing and infectious disease.
Dr. iMller updated family at the bedside 01/07/2024
-
Critical care statement: A total of 37 minutes of critical care time was provided for this patient today. This includes management of unstable vital signs, evaluation of the patient at bedside, reviewing the patient's pertinent medical records
including ventilator settings, arterial blood gases, radiographs, microbiology, laboratory evaluations and discussion with primary team, critical care nursing, and respiratory therapy.

Imaging reviewed:
CT abdomen pelvis 01/05/2024:
Small bilateral pleural effusions.
Tiny pericardial effusion.
Prior cholecystectomy.
Enlarged newly calcified right adrenal mass. . Repeat MRI examination recommended.
Findings consistent with prior benign granulomatous disease.
Pancreatic calcifications suggesting chronic pancreatitis.
Moderate fecal material throughout the colon.
Moderate diffuse bladder wall thickening. This can be seen with cystitis or bladder outlet obstruction.
Lower extremity Dopplers 01/07/2024: No DVT
Chest x-ray 01/07/2024: New asymmetric infiltrates right along left. Pneumonia versus asymmetric pulmonary edema
Subjective Dataa
Subjective Data
Date of Service:
Date of Service: January 08, 2024
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
Subjective:
No new complaints
Abdominal pain has not worsened
Denies nausea or vomiting
Denies headache or blurry vision
Review of Systems
General: Fever (n)
Cardiopulmonary: Dyspnea
GI: Abdominal Pain (n) and Nausea (n)
Neuro: Headache (n)
Objective Data
Data Reviewed
Vital Signs / I&O / Oxygen:
Vital Signs
Temp Pulse Resp BP Pulse Ox
99.2 F 78 16 125/49 99
01/08/24 11:48 01/08/24 05:15 01/08/24 05:15 01/08/24 05:15 01/08/24 09:14
Intake and Output
01/07/24 01/08/24 01/09/24
06:59 06:59 06:59
Intake Total 2573.8 / 2668.8 2776.1 / 2776.1
Output Total 140 / 140 3050 / 3050
Balance 2433.8 / 2528.8 -273.9 / -273.9
SaO2 99
Nasal Cannula flow liters per 4
minute
Physical Exam
General: Respiratory Distress (n)
HEENT: Normocephalic
Cardiovascular: S1-S2
Respiratory: Crackles
GI: Soft and Non Distended
Neurology: Awake and Alert
Skin: Warm
Labs/Micro/Reports
Lab Data
01/08/24 03:39
01/08/24 03:39
Laboratory Results
01/07/24
12:54
pH 7.35
pCO2 41 H
pO2 79 L
HCO3 22.6
O2 Delivery Level
Microbiology
01/07/24 06:42 Blood/Venous Blood Culture - Preliminary
No Growth in 24 hours- Final report to follow
01/07/24 06:42 Blood/Venous Blood Culture - Preliminary
No Growth in 24 hours- Final report to follow
--- NOTE | 2024-01-08 12:15 | PTCARENOTE ---
Pt's daughter here to visit. Updated on pt's present condition/plan of care, questions answered. Pt continues to rest quietly. Tolerating CL diet w/o complication/complaint. O2 at 4l/min via NC w/ POx 95%. No changes from previous assessment
findings.
[2024-01-08] MEDS: FIRVANQ 125 MG PO ×2 (12:31→22:16)
[2024-01-08 12:41] LABS: Glucose - Point of Care 227 mg/dl (70-99)
--- NOTE | 2024-01-08 13:12 | W.PN.NEPH.PH ---
Today's Communication / Plan
-
- hold diuretics
Assessment/Plan
-
Impression:
Acute kidney injury
Baseline CKD3a (1.1)
History of recurrent UTI (ESBL)
Coronary artery disease with previous stenting procedure
Paroxysmal atrial fibrillation
History of CVA
Hypothyroidism
Diabetes mellitus type II
History of subdural hematoma
Trigeminal neuralgia
Multiple left shoulder surgeries with septic left shoulder hardware removal
Bladder dysfunction
Chronic pain/ fibromyalgia
Depression
Restless leg syndrome
Anemia
Hyperkalemia
Metabolic acidosis
Elevated LFTs
Abdominal pain
Plan:
Cr stable at 1.8
recieved 40IV lasix yesterday, would prefer to hold diuretics today
I suspect acute kidney injury is prerenal given hypotension as well at this time.
urine studies notable for protein, blood and LEs
bladder scan with 125cc, Lawton placed
lactate elevated, LFTs up, initiated on pressors with improvement
Serial BMP
off bicarb gtt, transitioned to NS. can consider restarting sodium bicarb tabs when needed
K normalized
-
-
Date of Service: January 08, 2024
CC / HPI / ROS
-
Chief Complaint:
AR
History of Present Illness:
c/f shock (septic vs. cardiac?)
on pressor support
hypoxic resp failure
Review of Systems:
on NC
Labs
-
Labs:
WBC 14.2 10^3/uL (4.8-10.8) H 01/08/24 03:39
RBC 2.98 10^6/uL (4.20-5.40) L 01/08/24 03:39
Hgb 8.2 g/dL (12.0-16.0) L 01/08/24 03:39
Hct 25.1 % (37.0-47.0) L 01/08/24 03:39
Plt Count 269 10^3/uL (130-400) 01/08/24 03:39
Sodium 133 mmol/L (135-145) L 01/08/24 03:39
Potassium 4.1 mmol/L (3.5-5.1) 01/08/24 03:39
Chloride 96 mmol/L (98-107) L 01/08/24 03:39
Carbon Dioxide 28 mmol/L (22-30) 01/08/24 03:39
BUN 69 mg/dl (7-17) H 01/08/24 03:39
Creatinine 1.8 mg/dL (0.6-1.0) H 01/08/24 03:39
eGFR 28.84 01/08/24 03:39
Glucose 170 mg/dl (70-99) H 01/08/24 03:39
Calcium 7.9 mg/dl (8.4-10.2) L 01/08/24 03:39
Nbe-D-Drnpjevkeyy Pept 7590 pg/ml 01/02/24 15:25
Albumin 2.5 g/dl (3.5-5.0) L 01/08/24 03:39
Physical Exam
-
Vital Signs:
Vital Signs
Temp Pulse Resp BP Pulse Ox
99.2 F 72 17 116/39 97
01/08/24 11:48 01/08/24 12:30 01/08/24 12:30 01/08/24 12:30 01/08/24 12:30
Cardiovascular:: Regular rate and rhythm
Respiratory:: Bilateral: Coarse
Lung Excursion:: Normal
Abdomen:: Nontender and Soft
Bowel Sounds:: Normal
Extremity Edema:: +1: Bilateral:
Lawton Catheter: Yes
--- NOTE | 2024-01-08 16:00 | PTCARENOTE ---
Pt stood at bedside w/ Physical therapy and now resting quietly in bed watching TV. Continues to deny c/o pain. Levophed gtt titrated as documented on worklist intervention. No changes from previous assessment findings.
[2024-01-08 16:25] LABS: Glucose - Point of Care 152 mg/dl (70-99)
[2024-01-08] MEDS: DEPAKOTE (12 HR RELEASE) 500 MG PO (17:34)
--- NOTE | 2024-01-08 18:30 | PTCARENOTE ---
Pt incontinent of large amount of liquid brown BM. FMS placed per order. Pericare/hygiene provided.
--- NOTE | 2024-01-08 20:00 | PTCARENOTE ---
Received pt resting in bed, AAOx3. LUE with decreased ROM. Gen. weakness. SR on tele, HR 70s. Weaning levophed to maintain MAP>65. Weak DP/PTs. Afebrile. Increased to 5L NC at change of shift due to sat of 87%. Will wean as tolerated. Lungs dim with
crackles at bases. Hypoactive bowel sounds. Tender to palpation. Morphine given for 5/[address] for liquid stool. Clear liq diet. Lawton draining yellow urine with sediment. See I&O. R TL IJ with levophed and NSS @ 80ml/hr. Call estrada in
reach
[2024-01-08] MEDS: MIRALAX PO (20:11)
[2024-01-08] MEDS: MORPHINE SULFATE 1 MG IV (20:38)
[2024-01-08] MEDS: INVANZ 55 MG IV (20:39)
[2024-01-08] MEDS: SENOKOT-S PO (20:39)
[2024-01-08] MEDS: FOLVITE 1 MG PO (22:16)
[2024-01-08] MEDS: REMERON 15 MG PO (22:16)
[2024-01-08] MEDS: NOVOLOG FLEXPEN 5 UNITS SC (23:53)
--- NOTE | 2024-01-08 23:56 | PTCARENOTE ---
Pt reassessed. Weaned to 2L NC. Levophed titrated to off. Pt resting on and off, without complaints
[2024-01-08 23:57] LABS: Glucose - Point of Care 293 mg/dl (70-99)
[2024-01-09] VITALS (45 sets, daily range): BP systolic 88–124; BP diastolic 38–101; BMI 26.7
[2024-01-09 03:57] LABS: % Basophils 0.4 % (0-2); % Eosinophils 4.4 % (0-6); % Immature Granulocytes 0.3 % (0-0.5); % Lymphocytes 12.1 % (20.5-51.1); % Monocytes 6.9 % (1.7-9.3); % Neutrophils 75.9 % (42.2-75.2); Absolute Eosinophils 0.4 10^3/uL (0-0.7); Absolute Lymphocytes 1.1 10^3/uL (1.2-3.4); Absolute Monocytes 0.6 10^3/uL (0.1-0.6); Absolute Neutrophils 7.1 10^3/uL (1.4-6.5); Hematocrit 21.9 % (37.0-47.0); Hemoglobin 7.1 g/dL (12.0-16.0); Mean Corp Hgb Conc. 32.4 g/dL (33.0-37.0); Mean Corpuscular Hgb 27.3 pg (27.0-31.0); Mean Corpuscular Volume 84.2 fL (81.0-99.0); Mean Platelet Volume 10.7 fL (7.4-10.4); Nucleated Red Blood Cells % 0 %; Platelet Count 216 10^3/uL (130-400); Red Cell Dist. Width 17.5 % (11.5-14.5); White Blood Cell Count 9.3 10^3/uL (4.8-10.8)
[2024-01-09 04:36] LABS: Albumin 2.3 g/dl (3.5-5.0); Alkaline Phosphatase 82 U/L (38-126); Blood Urea Nitrogen 51 mg/dl (7-17); Calcium 7.1 mg/dl (8.4-10.2); Carbon Dioxide 31 mmol/L (22-30); Chloride 100 mmol/L (98-107); Direct Bilirubin 0.3 mg/dl (0.0-0.4); Estimated Creatinine Clearance 31 ml/min; Glucose 154 mg/dl (70-99); Magnesium 1.9 mg/dl (1.6-2.3); Potassium 3.3 mmol/L (3.5-5.1); Sodium 134 mmol/L (135-145); Total Bilirubin 0.3 mg/dl (0.2-1.3); Total Protein 4.7 g/dl (6.3-8.2); eGFR 42.62
[2024-01-09 04:53] LABS: ALT (SGPT) 1990 U/L (0-35); AST (SGOT) 891 U/L (14-36)
[2024-01-09] MEDS: SYNTHROID 112 MCG PO (06:06)
--- NOTE | 2024-01-09 08:16 | W.PN.HOSP.TC ---
Today's Communication/Plan
-
see A/P
Assessment / Plan
Assessment / Plan
HPI: 78 y/o F with h/o PAF, CKD, cva, htn, hld, dm, anemia presented with b/l LE edema for two weeks. Her Lasix was discontinued while she was here last time due to kidney injury three weeks ago. Her primary care called her on Wednesday, asked her to
call nephrology for diuretics. She couldn't get hold off them. She started having pain. She took her 's hctz, thinking that would help.
On arrival, she has b/l LE edema. BNP in 0's. Received a dose of Lasix.
A/P:
# BL LE peripheral edema POA, likely related to acute on chronic now systolic heart failure
BNP 7500
chest x ray No radiographic findings to suggest CHF
BL LE US neg for DVT
Was on IV Lasix, then held due to worsening AR
MILITARY SCIENCE TEACHER Coreg and nifedipine DCed due to shock (see below)
Card on board
Follow up Echo 01/03 noted Severely reduced left ventricular systolic function, EF 25-30%. Mild pulmonary hypertension. Compared to the prior study earlier, EF is worsened
# New onset diffuse abdominal pain, started overnight of 01/03. There was concern of ischemic colitis, which appears to be resolving
# lactic acidosis has resolved
urgent CT AP with PO contrast was unrevealing, noted constipation
Pt was started with Miralax BID, Senokot-S BID, cont Dulcolax PRN
Cont empiric IV PPI BID
Low dose IV morphine PRN for pain
GI on board
GS consulted
# Shock, ?distributive/related to ischemic colitis vs septic (with ?UTI)
# Shocked liver
# Lactic acidosis, resolved
s/p Bicarb drip per renal
Pt was upgraded to ICU 01/05 and pressor Levophed was started 01/05
Levophed on hold today, low threshold to restart
LFT improving although still very high
off Tylenol
Blood Cx negative, follow urine Cx
Cont ertapenem
Cont empiric PO vanco BID for h/o C diff colitis
ID following
# Hyperkalemia, temporized and treated
# AR on CKD stage 3
SCr 2.1 -> 1.3; from 1.0 (baseline)
IV Lasix on hold
Renal following
# Elevated Trop likely due to non-ischemia myocardial injury
# h/o CAD/multivessel disease and was refused bypass surgery at that time due to several risk factors
Follow up Echo 01/03 noted Severely reduced left ventricular systolic function, EF 25-30%. Mild pulmonary hypertension. Compared to the prior study earlier, EF is worsened
Trop peaked at 45.8
Card following
# New R lung infiltrate noted from 01/06
# New acute hypoxic respiratory failure
high flow NC -> weaned to 2L NC, cont to wean O2 as tolerated
CXR 01/06 with new significant airspace disease within the right lung characterized by interstitial and patchy/more confluent airspace opacity within the peripheral right midlung. Findings suspicious for pneumonia versus asymmetric pulmonary edema.
MRSA Screen neg
elevated d dimer noted, repeat LE US neg for DVT, check VQ scan when able (ordered)
Cont Ertapenem as above
ID on board as above
# Acute on chronic anemia
# anemia of chronic disease
Hgb 7.1 from 8.2
will transfuse 1 unit PRBC 01/08
Follow iron studies, B12, folate
Cont empiric Protonix 40 IV BID
# h/o Recurrent ESBL Klebsiella UTI
# CAD status post stents
# Paroxysmal atrial fibrillation per note
Continue aspirin
off Coreg
# Hypothyroidism
Continue levothyroxine
# Hyperlipidemia
off statin
# Type 2 diabetes
Holding metformin
Sliding scale
carb control diet
# Essential hypertension
Off MILITARY SCIENCE TEACHER nifedipine/Coreg
# Trigeminal neuralgia
Continue Depakote
# Overactive bladder
Continue tolterodine
# Chronic pain/fibromyalgia/depression
Continue duloxetine, mirtazapine
# Cough following diet
pt seen by [facility], recc GI given pt's complaints of GERD without official dx or prescribed tx, as well as reported difficulty/coughing/choking with solids more than liquids.
GI felt chronic intermittent dysphagia could be related to esophagitis or presbyesophagus. Recommend Protonix 40mg daily. Can also check outpt EGD/colonoscopy for iron deficiency.
# Clinical deconditioning due to shock
PT OT when able
Full code
DVT prophylaxis� heparin SQ for now, if Hgb continues to drop, would hold HSQ and substitute with SCD
DW RN
DW Safety Person
updated on the phone
total time spent 51 min
Anticipated Discharge: > 48 hours
Subjective/Interval History
-
Date of Service: January 09, 2024
Objective Data
-
Labs:
Laboratory Results
01/09/24
03:45
WBC 9.3
Hgb 7.1 L
Hct 21.9 L
Plt Count 216
Sodium 134 L
Potassium 3.3 L
Chloride 100
Carbon Dioxide 31 H
BUN 51 H
Creatinine 1.3 H
Glucose 154 H
Calcium 7.1 L
Total Bilirubin 0.3
AST 891 H*
ALT 1990 H*
Alkaline Phosphatase 82
Vital Signs:
Vital Signs
Temp Pulse Resp BP Pulse Ox
36.6 C 71 23 88/79 100
01/09/24 08:08 01/09/24 06:00 01/09/24 06:00 01/09/24 06:00 01/09/24 05:45
I&O
01/08/24 01/09/24 01/10/24
06:59 06:59 06:59
Intake Total 2776.1 / 2878.6 2411.6 / 2411.6
Output Total 3050 / 3050 1720 / 1720
Balance -273.9 / -171.4 691.6 / 691.6
Review of Systems
-
Abdomen/GI: Reports Abdominal Pain (much improved)
Physical Exam
-
General: Well Developed, Well Nourished, Respiratory Distress (mild) and Appears Chronically Ill
HEENT: Normocephalic, Atraumatic, Moist Mucous Membranes and Oxygen (2L NC)
Respiratory: Clear to Auscultation and Non Labored Respirations; Negative Accessory Resp Muscle Use
Cardiac: Regular Rhythm and S1/S2
GI: Soft, Nondistended and Normal Bowel Sounds
Musculoskeletal: No Clubbing and No Cyanosis
Skin: Warm and Dry
Neuro: Awake
Psych: Calm and Intact Judgement/Insight
Data Reviewed
-
Diagnostic Radiology: Image personally visualized and interpreted and Report Reviewed by me
CT Scan: Report Reviewed by me
Medical Tests (Nuc Med, Echo etc): Report Reviewed by me (echo)
Labs: Labs Reviewed by me
[2024-01-09 08:18] LABS: Glucose - Point of Care 166 mg/dl (70-99)
[2024-01-09 08:22] LABS: Iron 22 ug/dl (37-170)
[2024-01-09 08:23] LABS: Percent Saturation 11 % (20-50); Total Iron Binding Capacity 196 ug/dl (265-497)
[2024-01-09] MEDS: SENOKOT-S 1 TABLET PO (08:23)
[2024-01-09] MEDS: HEPARIN 5000 UNITS SC ×2 (08:23→19:40)
[2024-01-09] MEDS: B COMPLEX w/VITAMIN C 1 CAPLET PO (08:23)
[2024-01-09] MEDS: KCL 40 MEQ PO (08:23)
[2024-01-09] MEDS: CYMBALTA DELAYED RELEASE 60 MG PO (08:23)
[2024-01-09] MEDS: PROTONIX IV 40 MG IV ×2 (08:23→19:40)
[2024-01-09] MEDS: ASPIR LOW (ENTERIC COATED) 81 MG PO (08:23)
[2024-01-09] MEDS: MIRALAX 17 GRAMS PO (08:23)
[2024-01-09] MEDS: NSS (PRESERVATIVE FREE) 10 ML IV ×2 (08:24→19:40)
--- NOTE | 2024-01-09 08:28 | W.PN.CD ---
Today's Communication / Plan
-
would prefer a higher Hgb, agree transfusion with a possible dose of lasix.
continue monitor bp as just weaned off vasopressor
remains critically ill
time 31 minutes
Impression / Plan
-
78-year-old female with history of paroxysmal AF not on anticoagulation , HFpEF, hypertension, hyperlipidemia, CKD who is here today for acute on chronic heart failure exacerbation. Unfortunately had abdominal pain has developed now with
increasing leukocytosis.
01/06/2024 patient had additional decompensation. Severe hypokalemia with a potassium of 7 , lactic acidosis, AR with creatinine up to 2.3 and transaminitis and relatively low blood pressure.. Patient transferred to ICU.
Patient transferred to the ICU. Relatively low blood pressures with l severe hyperkalemia with a potassium of 7.0, lactic acidosis, elevated creatinine to 2.3 and elevated LFTs patient had been evaluated by GI as well as general surgery. Patient
had some complaints of abdominal pain/lower abdominal pain which raises some question of possibility of ischemic bowel. Seen by general surgery. Patient not felt at that time to have an indication for surgery and it was not clear that the patient
had ischemic bowel. Transferred to ICU. Exact cause of decompensation was unclear. Possibility of sepsis or intra-abdominal process entertained. No complaints of shortness of breath or chest pain at that time and no ischemic ECG changes. First
troponin in ICU was 45 which appears to been the peak and is since trended down. Patient has had increased O2 requirements and is also required pressors with Levophed at 5. However patient is currently feeling better. LFTs have further risen with
AST 4700 creatinine remains at 2.1.
NSTEMI: Type II vs ACS
-no cp, anterior rwave loss
-difficult to say Type 2 vs ACS but given hypotension in a severe vasculopath with known MVD I favor the former. Sanchez said, after reconsideration, given no cp, clinical improvement and abdominal concerns decided against heprain , continue asa.
Typically on clopidogrel but until clinical scenarios stablizes will hold it.
-no active chest pain, with AR will avoid cath currently could consider in the future given new CMY.
HFrEF:
-25-30%
-oxygenation improved
-eventual GDMT---just weaned of vasopressor this am
Hypotension. Suspect multifactorial with septic shock compounded by new element of cardiogenic shock
-wean vasopressors as able-->just turned off this am, will monitor
Acute hypoxemic/hypercapnic Respiratory failure:
-high oxygen requirements are improving
-all chf vs ALI
AR on CKD with development of severe hyperkalemia.
-likely ATN with hypotension
-renal following
-cr improving
Anemia:
-acuter on chronic
-with shock of multiple causes including Cardiogenic, would prefer a higher Hgb agree with transfusion with a possible dose of lasix.
Abdominal pain
-Exact etiology unclear. Patient in no distress this morning.
-Seems consistent with UTI but GI/surgery following as Ischemic bowel in consideration
Elevated LFTs. Greater than 4000.
-Suspect component of shock liver
-improving with clinical improvement
History of PAF listed. Not on anticoagulation given frequent falls remains in sinus monitor on telemetry
Data:
CLARA 01/07/24 with contrast:
CONCLUSIONS
Severely reduced left ventricular systolic function. Left ventricular ejection
fraction is 25-30% by Nolan's method of discs.
Anterior, basal to mid lateral le and apex are hypokinetic, no evidence of
LV thrombus with contrast.
Normal right ventricular size and function.
Mild pulmonary hypertension.
Compared to the prior study earlier today, the ejection fraction is worsened on
Contrast images, but overall appears similar. But, I suspect the difference is
due to image quality rather than further decline of LV function.
Echo 01/04/2024: LVEF 55-60%, mild LVH, AoV sclerosis, dense MAC
Subjective: she is feeling better, she is more alert, still some lower abdominal pain, no cp or sob.
Physical Exam
Vital Signs/Labs
Vital Signs
Temp Pulse Resp BP Pulse Ox
97.8 F 71 23 88/79 100
01/09/24 08:08 01/09/24 06:00 01/09/24 06:00 01/09/24 06:00 01/09/24 05:45
01/08/24 01/09/24 01/10/24
06:59 06:59 06:59
Actual Weight 62.9 kg 64.1 kg
01/09/24 03:45
01/09/24 03:45
PT 19.7 Sec (11.4-14.6) H 01/07/24 04:17
INR 1.69 01/07/24 04:17
APTT 35.9 Sec (23.4-35.0) H 01/07/24 04:17
Magnesium 1.9 mg/dl (1.6-2.3) 01/09/24 03:45
01/02/24
15:25
Gtg-G-[place] Pept 7590
LAB Results
01/06/24 01/07/24 01/07/24
21:05 00:48 04:17
Troponin I 45.800 H* 36.600 H* 29.600 H*
01/07/24 01/07/24
10:04 10:40
Troponin I Cancelled 24.600 H*
Physical Exam
Constitutional: No acute distress
EENT: Anicteric
Cardiovascular: Rhythm & rate is regular, Pedal edema is absent, JVD pressure is normal and Systolic murmur absent
Respiratory: Respiratory effort normal, Lungs clear to auscul., Wheeze Absent, Crackles Absent and Rhonchi Absent
GI: Soft, Distention absent and Abdomen is tender (suprapubically, no gaurding)
Neuro/Psych: AO x 3
Data Reviewed
-
Date of Service: January 09, 2024
Medical Decision Making: Review of Case with other Provider (Dr Munoz agree with transfusion, may need lasix after CCN he just turned of levophed, monitor oxygenation post transfusion)
[2024-01-09] MEDS: NSS 1000 IV ×2 (09:15→20:33)
[2024-01-09] MEDS: NOVOLOG FLEXPEN-MODERATE RESISTANCE 1 UNITS SC (09:16)
--- NOTE | 2024-01-09 09:36 | W.PN.ID1 ---
Date of Service
Date of Service: January 09, 2024
Today's Communication
Continue antibiotics.
Assessment / Plan
MSOF
AR
- improved
Leukocytosis
- Improved
Shock Liver
Suspected UTI
Suspected resolving ischemic colitis
Recent ESBL UTI
Reported history of C difficile
Numerous Stated Drug Intolerances/allergies
- blood cultures x2 in progress no growth to date
- UA with gross pyuria and hematuria; urine culture : GNR's
- sputum culture if able to produce one
- follow wbc / temps
- Continue ertapenem
- Continue oral vancomycin BID ppx while on broad spectrum rx
- follow clinically
����������������������������������������������������������
Chief Complaint
-: Clinical Sepsis
Subjective / Review of Systems
Review of Systems: No Fever and No Chills
Vital Signs / Physical Exam
Vital Signs
Vital Signs
Temp Pulse Resp BP Pulse Ox
97.8 F 71 23 88/79 100
01/09/24 08:08 01/09/24 06:00 01/09/24 06:00 01/09/24 06:00 01/09/24 05:45
Physical Exam
Constitutional: Comfortable and Non-toxic
Eyes: No Conjunctival Hemorrhage and Sclera Anicteric
Cardiovascular: Irregular Rate and S1/S2; Negative S3/S4
Pulmonary: Coarse and Non Labored
Gastrointestinal: Soft, Non Distended, Normal Bowel Sounds, No Rebound and No Guarding
Genito-Urinary: [place] and Clear Urine
Extremities: Edema; Negative Cyanosis or Erythema
Neurological: Awake and Alert
Psychological: Calm
Objective Data
Lab Data
Lab Results
01/09/24 03:45
01/09/24 03:45
PT 19.7 Sec (11.4-14.6) H 01/07/24 04:17
INR 1.69 01/07/24 04:17
APTT 35.9 Sec (23.4-35.0) H 01/07/24 04:17
Estimated Creat Clear 31 ml/min 01/09/24 03:45
Lactic Acid 1.8 mmol/L (0.7-2.0) 01/07/24 04:17
Total Bilirubin 0.3 mg/dl (0.2-1.3) 01/09/24 03:45
AST 891 U/L (14-36) H* 01/09/24 03:45
ALT 1990 U/L (0-35) H* 01/09/24 03:45
Alkaline Phosphatase 82 U/L (38-126) 01/09/24 03:45
Amylase 55 U/L (30-110) 01/06/24 21:05
Most recent labs reviewed.
Micro Results:
01/07/24 06:42 Blood Culture - Preliminary
Blood/Venous No Growth in 48 hours- Final report to follow
01/07/24 06:42 Blood Culture - Preliminary
Blood/Venous No Growth in 48 hours- Final report to follow
01/07/24 09:49 MRSA Screen - Final
Nose No Methicillin Resistant Staphylococcus aureus isolated.
01/07/24 02:45 Urine Culture - Preliminary
Urine Gram negative bacilli
01/02/24 18:53 Urine Culture - Final
Urine
01/02/24 23:14 MRSA Screen - Final
Nose No Methicillin Resistant Staphylococcus aureus isolated.
[2024-01-09 09:37] LABS: Folate > 20.0 ng/ml (2.76-20); Vitamin B12 > 1000 pg/ml (239-931)
--- NOTE | 2024-01-09 10:01 | W.PN.GI.CBS2 ---
Today's Communication / Plan
-
abx, diet, trend LFTs, GI signing off
Assessment / Plan
-
1. Abdominal pain: Lower, acute, in the setting of hypotension, with markedly positive UA and history of UTIs in the past, most likely secondary to cystitis/UTI with underlying sepsis. While ischemic bowel is still a consideration she is much
improved making this much less likely, and again UA with greater than 100 WBCs. Advance diet as tolerated. On empiric antibiotics.
2. Elevated LFTs: Consistent with low flow/shock, improving, again without any further GI symptoms. Improving, continue to trend.
GI will sign off please call with questions.
Subjective
Subjective
Date of Service: January 09, 2024
Lower abd pain present but improving
Objective
Data Reviewed
Laboratory Data:
Laboratory Results
01/09/24 03:45
01/09/24 03:45
Laboratory Results
PT 19.7 Sec (11.4-14.6) H 01/07/24 04:17
INR 1.69 01/07/24 04:17
APTT 35.9 Sec (23.4-35.0) H 01/07/24 04:17
Magnesium 1.9 mg/dl (1.6-2.3) 01/09/24 03:45
Total Bilirubin 0.3 mg/dl (0.2-1.3) 01/09/24 03:45
AST 891 U/L (14-36) H* 01/09/24 03:45
ALT 1990 U/L (0-35) H* 01/09/24 03:45
Alkaline Phosphatase 82 U/L (38-126) 01/09/24 03:45
Amylase 55 U/L (30-110) 01/06/24 21:05
Lipase 121 U/L (23-300) 01/06/24 21:05
Vital Signs and I&O:
Vital Signs
Temp Pulse Resp BP Pulse Ox
97.9 F 72 18 105/51 97
01/09/24 09:58 01/09/24 09:58 01/09/24 09:58 01/09/24 09:58 01/09/24 08:00
I&O
01/08/24 01/09/24 01/10/24
06:59 06:59 06:59
Intake Total 2776.1 / 2878.6 2411.6 / 2491.6 240 / 240
Output Total 3050 / 3050 1720 / 1770 150 / 150
Balance -273.9 / -171.4 691.6 / 721.6 90 / 90
Physical Exam
Physical Exam
GI: Non Distended and Non Tender
--- NOTE | 2024-01-09 10:28 | W.PN.INTV ---
Today's Communication / Plan
Recommendations
Continue antibiotics
Gentle hydration
Transfusion today
Follow renal function and electrolytes
Wean down FiO2
Hold diuretics for today
Possible transfer to telemetry later today.
Assessment
-
78-year-old woman with multiple/complex medical history. Initially came with lower extremity edema. Diuresed on initial presentation. Subsequently developed acute kidney injury, hypotension and lower abdominal pain. Required vasopressors.
Evaluated for bowel ischemia, CT abdomen pelvis did not confirm this. Found to have shock liver, increased troponins, hypoxemia and transferred to the critical care unit for further evaluation and care.
Septic shock: UTI
Urine culture with Klebsiella pneumonia ESBL
Systolic cardiomyopathy: Possibly ischemic-contributing to shock
Echocardiogram 01/07/2024: Severely reduced LVEF 25/30%. Anterior, basal to mid lateral wall and apex hypokinetic no evidence for LV thrombus. Normal biventricular size and function. Mild pulmonary hypertension.
Acute hypoxemic/hypercapnic respiratory failure: On high flow oxygen 100%
suspect asymmetric pulmonary edema versus acute lung injury.
Cannot rule out aspiration event-clinically not consistent with it.
Increased troponin: Suspect type II CT vs ACS
New regional motion wall abnormality on echocardiogram 01/07/2024 / new decline on LVEF.
Prior history of coronary artery disease with stents in the past. Multivessel coronary artery disease per family report
Multiorgan failure
Acute kidney injury/metabolic acidosis
Shock liver suspected
LFTs improving
Abdominal pain: Possibly from UTI/ cystitis.
CT abdomen pelvis 01/05/2024: Moderate fecal material throughout the colon. Moderate diffuse bladder wall thickening. No other acute abnormality.
Less likely bowel ischemia as lactic acid has cleared as of 01/07/2024.
Conditions present prior admission:
Coronary artery disease with prior stents
Left bundle branch block
Paroxysmal atrial fibrillation
History of CVA
History of trigeminal neuralgia
Obstructive sleep apnea
Hypertension
Hypothyroidism
Hyperlipidemia
Type 2 diabetes
Depression
Prior UTI-ESBL
Left shoulder replacement complicated by septic shoulder
Subdural hematoma
Overactive bladder
Recurrent UTIs
Cholecystectomy
Hysterectomy
Left hip surgery
Assessment and plan:
Clinically slowly improving
Vasopressors have been discontinued 01/09/2024
Afebrile/leukocytosis resolved
Renal function improving creatinine down to 1.3
-
Suspect septic shock from UTI/possibly also cardiogenic component given new decrease on LVEF
CT abdomen pelvis with bladder thickening-possible cystitis
Urine culture with Klebsiella ESBL
Continue antibiotics per infectious disease
Lactic acid has cleared as of 01/07/2024
-
Currently on Levophed at 4 mics per minute. Hopefully can wean off.
Hold antihypertensive
Hold diuresis for now but likely will need at some point.
-
Shock liver:
Transaminases greater than 4000: Suspect ischemic injury. LFTs improved
Patient is a status postcholecystectomy in the past
-
Lower abdominal pain: Evaluated for bowel ischemia but CAT scan did not confirm
Less likely bowel ischemia as lactic acid cleared.
Continue with serial abdominal exam
Amylase and lipase are normal
Cannot rule out cardiac ischemic equivalent vs abdominal pain due to cystitis
Surgery has signed off
Diet has been advanced
-
Hypoxemic respiratory failure with asymmetric infiltrates. Likely pulmonary edema. Less likely pneumonia clinically. Subsegmental atelectasis also playing a role.
Currently on 2 L nasal cannula. Appears comfortable.
ABG noted from 01/06/2024: 7.23/42/75.
Repeat ABG 01/07/2024: Improved hypercapnia
No need for BiPAP
Patient did receive a dose of Lasix. Hold for now.
Encouraged incentive spirometry
Repeat chest x-ray 01/10/2024.
-
Lower extremity Dopplers negative for DVT
No need for VQ scan. Less likely thromboembolic event.
Acute lung injury from septic shock also with possibility.
-
Acute systolic cardiomyopathy-possibly ischemic.
Echocardiogram repeated 01/07/2024 showed sharad decreased LVEF with motion wall abnormality, possible type II ischemia due to septic shock in the setting of multivessel coronary artery disease-Per family in the past patient not a candidate for coronary
artery bypass but has history of stents.
Currently chest pain-free
Heparin drip never been started-risk outweigh benefit.
Continue conservative management
May consider cardiac catheterization in the future if renal function improved.
Cardiology correspondence reviewed
-
Anemia: Hemoglobin 7.1 acute on chronic
Agree with transfusion today.
No evidence for bleeding.
-
Acute kidney injury: Likely ATN.
Creatinine decreased to 1.3
Nephrology following the patient
Continue hemodynamic support
Patient received oral bicarbonate. Hold for now per
Encourage oral hydration
Would discontinue further IV fluids after current IV bag.
Follow BMP
-
Hyperglycemia:
Increase insulin sliding scale
-
Clear liquid diet-tolerating well
Head of the bed elevation
-
Dr. Miller updated family at the bedside 01/07/2024, 01/08/2024.
-
This patient hemodynamically stable later in the afternoon, will consider transfer to telemetry.
If transferred to telemetry critical care team will sign off. Please call pulmonary if any respiratory stress arise.

Imaging reviewed:
CT abdomen pelvis 01/05/2024:
Small bilateral pleural effusions.
Tiny pericardial effusion.
Prior cholecystectomy.
Enlarged newly calcified right adrenal mass. . Repeat MRI examination recommended.
Findings consistent with prior benign granulomatous disease.
Pancreatic calcifications suggesting chronic pancreatitis.
Moderate fecal material throughout the colon.
Moderate diffuse bladder wall thickening. This can be seen with cystitis or bladder outlet obstruction.
Lower extremity Dopplers 01/07/2024: No DVT
Chest x-ray 01/07/2024: New asymmetric infiltrates right along left. Pneumonia versus asymmetric pulmonary edema
Subjective Dataa
Subjective Data
Date of Service:
Date of Service: January 09, 2024
Chief Complaint: Duct Maker Follow Up (Septic shock)
Subjective:
No overnight events
Abdominal pain is controlled
Denies nausea or vomiting
Review of Systems
General: Fever (n)
Cardiopulmonary: Dyspnea (none at rest)
GI: Abdominal Pain, Nausea (n) and Vomiting (n)
Objective Data
Data Reviewed
Vital Signs / I&O / Oxygen:
Vital Signs
Temp Pulse Resp BP Pulse Ox
97.9 F 72 18 105/51 97
01/09/24 09:58 01/09/24 09:58 01/09/24 09:58 01/09/24 09:58 01/09/24 08:00
Intake and Output
01/08/24 01/09/24 01/10/24
06:59 06:59 06:59
Intake Total 2776.1 / 2878.6 2411.6 / 2491.6 320 / 320
Output Total 3050 / 3050 1720 / 1770 190 / 190
Balance -273.9 / -171.4 691.6 / 721.6 130 / 130
SaO2 97
Nasal Cannula flow liters per 1
minute
Physical Exam
General: Respiratory Distress (n)
HEENT: Normocephalic
Cardiovascular: S1-S2
Respiratory: Crackles
GI: Soft and Non Distended
Neurology: Awake and Alert
Skin: Warm
Labs/Micro/Reports
Lab Data
01/09/24 03:45
01/09/24 03:45
Microbiology
01/07/24 06:42 Blood/Venous Blood Culture - Preliminary
No Growth in 48 hours- Final report to follow
01/07/24 06:42 Blood/Venous Blood Culture - Preliminary
No Growth in 48 hours- Final report to follow
01/07/24 09:49 Nose MRSA Screen - Final
No Methicillin Resistant Staphylococcus aureus isolated.
01/07/24 02:45 Urine Urine Culture - Preliminary
Gram negative bacilli
--- NOTE | 2024-01-09 10:37 | PTCARENOTE ---
pt aaox3. flat affect. states min pain in lower abd when palpated. ivf running as ordered. levo turned off per protocol. nc2l. breath sounds dim base with fine crackles. prbc now running as ordered. tobin care done.
[2024-01-09] MEDS: FIRVANQ 125 MG PO ×2 (11:05→22:42)
--- NOTE | 2024-01-09 11:22 | W.PN.NEPH.PH ---
Today's Communication / Plan
-
- hold diuretics
- transfusion
Assessment/Plan
-
Impression:
Acute kidney injury
Baseline CKD3a (1.1)
History of recurrent UTI (ESBL)
Coronary artery disease with previous stenting procedure
Paroxysmal atrial fibrillation
History of CVA
Hypothyroidism
Diabetes mellitus type II
History of subdural hematoma
Trigeminal neuralgia
Multiple left shoulder surgeries with septic left shoulder hardware removal
Bladder dysfunction
Chronic pain/ fibromyalgia
Depression
Restless leg syndrome
Anemia
Hyperkalemia
Metabolic acidosis
Elevated LFTs
Abdominal pain
Plan:
Cr improved to 1.3
no diuretics today, Cr down to 1.3
I suspect acute kidney injury is prerenal, improving with held diuretics
urine studies notable for protein, blood and LEs
bladder scan with 125cc, Law[place] placed
off pressors now
planned for transfusion today, monitor resp status, can give extra dose of diuretic today if needed
Serial BMP
needed sodium bicarb gtt initially, now off. no need to restart sodium bicarb pills right now
K low, repletetion per primary
-
-
Date of Service: January 09, 2024
CC / HPI / ROS
-
Chief Complaint:
AR
History of Present Illness:
c/f shock (septic vs. cardiac?)
on pressor support
hypoxic resp failure
Cr down to 1.3, baseline 1.1
Review of Systems:
on NC
Labs
-
Labs:
WBC 9.3 10^3/uL (4.8-10.8) 01/09/24 03:45
RBC 2.60 10^6/uL (4.20-5.40) L 01/09/24 03:45
Hgb 7.1 g/dL (12.0-16.0) L 01/09/24 03:45
Hct 21.9 % (37.0-47.0) L 01/09/24 03:45
Plt Count 216 10^3/uL (130-400) 01/09/24 03:45
Sodium 134 mmol/L (135-145) L 01/09/24 03:45
Potassium 3.3 mmol/L (3.5-5.1) L 01/09/24 03:45
Chloride 100 mmol/L (98-107) 01/09/24 03:45
Carbon Dioxide 31 mmol/L (22-30) H 01/09/24 03:45
BUN 51 mg/dl (7-17) H 01/09/24 03:45
Creatinine 1.3 mg/dL (0.6-1.0) H 01/09/24 03:45
eGFR 42.62 01/09/24 03:45
Glucose 154 mg/dl (70-99) H 01/09/24 03:45
Calcium 7.1 mg/dl (8.4-10.2) L 01/09/24 03:45
Bqa-Z-Uhwifoenhjl Pept 7590 pg/ml 01/02/24 15:25
Albumin 2.3 g/dl (3.5-5.0) L 01/09/24 03:45
Physical Exam
-
Vital Signs:
Vital Signs
Temp Pulse Resp BP Pulse Ox
98 F 73 14 110/52 94
01/09/24 10:16 01/09/24 10:30 01/09/24 10:30 01/09/24 10:30 01/09/24 10:37
Cardiovascular:: Regular rate and rhythm
Respiratory:: Bilateral: Coarse
Lung Excursion:: Normal
Abdomen:: Nontender and Soft
Bowel Sounds:: Normal
Extremity Edema:: +1: Bilateral:
Law[place] Catheter: Yes
[2024-01-09 12:02] LABS: Glucose - Point of Care 246 mg/dl (70-99)
[2024-01-09] MEDS: NOVOLOG FLEXPEN-MODERATE RESISTANCE 3 UNITS SC ×2 (12:08→16:50)
[2024-01-09 16:59] LABS: Glucose - Point of Care 217 mg/dl (70-99)
--- NOTE | 2024-01-09 17:11 | W.PN.UPDATE ---
Update Note
Progress Note Update
Clinically improved
Vasopressors have been off since this morning.
Patient alert, following commands.
She is eating independently.
Tolerated transfusion without complications
Will transfer to telemetry.
Critical care team will sign off.
Pulmonary will continue to follow briefly for hypoxemia.
[2024-01-09] MEDS: DEPAKOTE (12 HR RELEASE) 500 MG PO (18:06)
[2024-01-09] MEDS: SENOKOT-S PO (19:41)
[2024-01-09] MEDS: MIRALAX PO (19:41)
[2024-01-09] MEDS: INVANZ 55 MG IV (20:35)
--- NOTE | 2024-01-09 21:09 | PTCARENOTE ---
Received pt resting in bed, AAOx3. Without complaints. LUE with decreased ROM. Gen. weakness. SR on tele, HR 70s. Weak DP/PTs. Afebrile. On 2L NC. Hypoactive bowel sounds. FMS in place for liquid stool. Clear liq diet. Lawton draining yellow urine
with sediment. See I&O. R TL IJ with NSS @ 80ml/hr. Call estrada in reach.
[2024-01-09] MEDS: MORPHINE SULFATE 1 MG IV (21:38)
[2024-01-09 22:29] LABS: Glucose - Point of Care 259 mg/dl (70-99)
[2024-01-09] MEDS: FOLVITE 1 MG PO (22:42)
[2024-01-09] MEDS: REMERON 15 MG PO (22:42)
[2024-01-09] MEDS: NOVOLOG FLEXPEN-MODERATE RESISTANCE 5 UNITS SC (22:43)
[2024-01-10] VITALS (7 sets, daily range): BP systolic 107–142; BP diastolic 32–75; BMI 27.7
[2024-01-10 04:59] LABS: % Basophils 0.7 % (0-2); % Eosinophils 4.8 % (0-6); % Immature Granulocytes 0.3 % (0-0.5); % Lymphocytes 15.9 % (20.5-51.1); % Monocytes 8.5 % (1.7-9.3); % Neutrophils 69.8 % (42.2-75.2); Absolute Basophils 0.1 10^3/uL (0-0.2); Absolute Eosinophils 0.4 10^3/uL (0-0.7); Absolute Lymphocytes 1.4 10^3/uL (1.2-3.4); Absolute Monocytes 0.7 10^3/uL (0.1-0.6); Hematocrit 26.6 % (37.0-47.0); Mean Corp Hgb Conc. 32.3 g/dL (33.0-37.0); Mean Corpuscular Hgb 26.2 pg (27.0-31.0); Mean Corpuscular Volume 81.1 fL (81.0-99.0); Mean Platelet Volume 10.2 fL (7.4-10.4); Nucleated Red Blood Cells % 0 %; Platelet Count 184 10^3/uL (130-400); Red Blood Cell Count 3.28 10^6/uL (4.20-5.40); Red Cell Dist. Width 20.6 % (11.5-14.5); White Blood Cell Count 8.7 10^3/uL (4.8-10.8)
[2024-01-10 05:17] LABS: Hemoglobin 8.6 g/dL (12.0-16.0)
[2024-01-10 05:32] LABS: Albumin 2.3 g/dl (3.5-5.0); Alkaline Phosphatase 90 U/L (38-126); Blood Urea Nitrogen 35 mg/dl (7-17); Calcium 6.6 mg/dl (8.4-10.2); Carbon Dioxide 29 mmol/L (22-30); Chloride 105 mmol/L (98-107); Direct Bilirubin 0.4 mg/dl (0.0-0.4); Estimated Creatinine Clearance 41 ml/min; Glucose 127 mg/dl (70-99); Magnesium 1.8 mg/dl (1.6-2.3); Potassium 3.7 mmol/L (3.5-5.1); Sodium 137 mmol/L (135-145); Total Bilirubin 0.4 mg/dl (0.2-1.3); eGFR 58.39
[2024-01-10 05:44] LABS: ALT (SGPT) 1893 U/L (0-35); AST (SGOT) 752 U/L (14-36)
[2024-01-10] MEDS: SYNTHROID 112 MCG PO (06:08)
[2024-01-10] MEDS: CALCIUM GLUCONATE 100 IV (06:10)
--- NOTE | 2024-01-10 08:04 | W.PN.HOSP.TC ---
Today's Communication/Plan
-
see A/P
Assessment / Plan
Assessment / Plan
HPI: 78 y/o F with h/o PAF, CKD, cva, htn, hld, dm, anemia presented with b/l LE edema for two weeks. Her Lasix was discontinued while she was here last time due to kidney injury three weeks ago. Her primary care called her on Wednesday, asked her to
call nephrology for diuretics. She couldn't get hold off them. She started having pain. She took her 's hctz, thinking that would help.
On arrival, she has b/l LE edema. BNP in 0's. Received a dose of Lasix.
A/P:
# BL LE peripheral edema POA, likely related to acute on chronic now systolic heart failure
BNP 7500
chest x ray No radiographic findings to suggest CHF
BL LE US neg for DVT
Was on IV Lasix, then held due to worsening AR
IAP DISPLAYS ANALYST Coreg and nifedipine DC'ed due to shock (see below)
Card on board
Follow up Echo 01/03 noted Severely reduced left ventricular systolic function, EF 25-30%. Mild pulmonary hypertension. Compared to the prior study earlier, EF is worsened
# New onset diffuse abdominal pain, started overnight of 01/03. There was concern of ischemic colitis, which appears to be resolving
# lactic acidosis has resolved
urgent CT AP with PO contrast was unrevealing, noted constipation
Pt was started with Miralax BID, Senokot-S BID, Dulcolax PRN; adjust all bowel regimen to PRN with current diarrhea. Pt has fecal management system in place.
Cont empiric IV PPI BID
Low dose IV morphine PRN for pain
advance clear liquid diet to full liquid diet
GI on board
GS consulted
# Shock, ?distributive/related to ischemic colitis vs septic (with ?UTI)
# Shocked liver, resolving
# Lactic acidosis, resolved
# h/o Recurrent ESBL Klebsiella UTI
s/p Bicarb drip per renal
Pt was upgraded to ICU 01/05, and pressor Levophed was started on 01/05 and discontinued on 01/08
LFT improving although still very high
off Tylenol
Urine Cx from 01/06 grew ESBL Klebsiella
Cont ertapenem
Cont empiric PO vanco BID for h/o C diff colitis
ID following
# Hyperkalemia, temporized and treated
# AR on CKD stage 3
SCr 2.1 -> 1.0; from 1.0 (baseline)
IV Lasix on hold
gentle IVF per renal, consider DC soon
Renal following
# Elevated Trop likely due to non-ischemia myocardial injury
# h/o CAD/multivessel disease and was refused bypass surgery at that time due to several risk factors
Follow up Echo 01/03 noted Severely reduced left ventricular systolic function, EF 25-30%. Mild pulmonary hypertension. Compared to the prior study earlier, EF is worsened
Trop peaked at 45.8 -> 24
Card following
# New R lung infiltrate noted from 01/06
# New acute hypoxic respiratory failure
high flow NC -> weaned to 2L NC -> weaned to RA on 01/09
CXR 01/06 with new significant airspace disease within the right lung characterized by interstitial and patchy/more confluent airspace opacity within the peripheral right midlung. Findings suspicious for pneumonia versus asymmetric pulmonary edema.
MRSA Screen neg
elevated d dimer noted, repeat LE US neg for DVT, check VQ scan when able (ordered)
Cont Ertapenem as above
ID on board as above
# Acute on chronic anemia
# anemia of chronic disease
Hgb at 7.1 on 01/08, transfused 1 unit PRBC, Hgb improved to 8.6
Iron studies, B12, folate levels reviewed and acceptable
Cont empiric Protonix 40 IV BID
# Hypocalcemia
repleted lyte
# CAD status post stents
# Paroxysmal atrial fibrillation per note
Continue aspirin
off Coreg
# Hypothyroidism
Continue levothyroxine
# Hyperlipidemia
off statin
# Type 2 diabetes
Holding metformin
Sliding scale
# Essential hypertension
Off IAP DISPLAYS ANALYST nifedipine/Coreg
# Trigeminal neuralgia
Continue Depakote
# Overactive bladder
On tolterodine at home
# Chronic pain/fibromyalgia/depression
Continue duloxetine, mirtazapine
# Cough following diet from initial presentation
pt seen by [facility], recc GI given pt's complaints of GERD without official dx or prescribed tx, as well as reported difficulty/coughing/choking with solids more than liquids.
GI felt chronic intermittent dysphagia could be related to esophagitis or presbyesophagus. Recommend Protonix 40mg daily. Can also check outpt EGD/colonoscopy for iron deficiency.
# Clinical deconditioning due to shock
PT OT recc SNF
Full code
DVT prophylaxis� heparin SQ
Dispo: SNF per PT OT eval
DW RN
updated on the phone
total time spent 51 min
Anticipated Discharge: > 48 hours
Subjective/Interval History
-
Date of Service: January 10, 2024
Objective Data
-
Labs:
Laboratory Results
01/10/24
04:25
WBC 8.7
Hgb 8.6 L D
Hct 26.6 L
Plt Count 184
Sodium 137
Potassium 3.7
Chloride 105
Carbon Dioxide 29
BUN 35 H
Creatinine 1.0
Glucose 127 H
Calcium 6.6 L*
Total Bilirubin 0.4
AST 752 H*
ALT 1893 H*
Alkaline Phosphatase 90
Vital Signs:
Vital Signs
Temp Pulse Resp BP Pulse Ox
36.4 C 72 15 107/32 96
01/10/24 07:52 01/10/24 06:00 01/10/24 06:00 01/10/24 04:00 01/10/24 06:00
I&O
01/09/24 01/10/24 01/11/24
06:59 06:59 06:59
Intake Total 2411.6 / 2491.6 2310 / 2310
Output Total 1720 / 1770 880 / 880
Balance 691.6 / 721.6 1430 / 1430
Review of Systems
-
Abdomen/GI: Reports Abdominal Pain (much improved)
Physical Exam
-
General: Well Developed, Well Nourished, No Apparent Distress, Comfortable and Appears Chronically Ill
HEENT: Normocephalic, Atraumatic and Moist Mucous Membranes
Respiratory: Clear to Auscultation and Non Labored Respirations; Negative Accessory Resp Muscle Use
Cardiac: Regular Rhythm and S1/S2
GI: Soft, Nondistended and Normal Bowel Sounds
Rectal: Other (fecal management system)
Genito-urinary: [place]
Musculoskeletal: No Clubbing and No Cyanosis
Skin: Warm and Dry
Neuro: Awake
Psych: Calm and Intact Judgement/Insight
Data Reviewed
-
Diagnostic Radiology: Image personally visualized and interpreted and Report Reviewed by me
CT Scan: Report Reviewed by me
Medical Tests (Nuc Med, Echo etc): Report Reviewed by me (echo)
Labs: Labs Reviewed by me
[2024-01-10] MEDS: CYMBALTA DELAYED RELEASE 60 MG PO (08:05)
[2024-01-10] MEDS: NSS (PRESERVATIVE FREE) 10 ML IV ×2 (08:06→19:45)
[2024-01-10] MEDS: NSS 1000 IV (08:06)
[2024-01-10] MEDS: PROTONIX IV 40 MG IV ×2 (08:06→19:45)
[2024-01-10] MEDS: SENOKOT-S PO (08:06)
[2024-01-10] MEDS: MIRALAX PO (08:07)
[2024-01-10] MEDS: B COMPLEX w/VITAMIN C 1 CAPLET PO (08:07)
[2024-01-10] MEDS: ASPIR LOW (ENTERIC COATED) 81 MG PO (08:07)
[2024-01-10] MEDS: HEPARIN 5000 UNITS SC ×2 (08:07→19:45)
[2024-01-10] MEDS: NOVOLOG FLEXPEN-MODERATE RESISTANCE SC ×2 (08:22→11:28)
[2024-01-10 08:24] LABS: Glucose - Point of Care 122 mg/dl (70-99)
--- NOTE | 2024-01-10 08:33 | W.PN.PUL3 ---
Today's Communication / Plan
-
Diurese to maintain net negative fluid balance as tolerated
Maintain SpO2 >90-94%
Up OOB as tolerated
Trend H/H
CXR from today reviewed --> in setting of volume overload and suspected bibasilar atelectasis with normal WBC, I doubt this retrocardiac opacity is due to PNA, but rather due to non-infectious causes. Continue to monitor.
PT/OT recommended. Repeat CXR in few days to trend and assess for improvement.
Patient remains stable on minimal supplemental oxygen currently on 1 L/min breathing comfortably. No additional pulmonary recommendations at this time. Diuresis as per cardiology with upcoming cardiac catheterization with GDMT initiation depending
on her continued stability. Pulmonary service will now sign off. Please reconsult if there are any additional questions/concerns, or if patient's respiratory status deteriorates.
Assessment
-
78-year-old woman with multiple/complex medical history. Initially came with lower extremity edema. Diuresed on initial presentation. Subsequently developed acute kidney injury, hypotension and lower abdominal pain. Required vasopressors.
Evaluated for bowel ischemia, CT abdomen pelvis did not confirm this. Found to have shock liver, increased troponins, hypoxemia and transferred to the critical care unit for further evaluation and care.
Impression:
Septic shock: UTI --> shock state now resolved
Urine culture with Klebsiella pneumonia ESBL
Systolic cardiomyopathy: Possibly ischemic-contributing to shock
Echocardiogram 01/07/2024: Severely reduced LVEF 25/30%. Anterior, basal to mid lateral wall and apex hypokinetic no evidence for LV thrombus. Normal biventricular size and function. Mild pulmonary hypertension.
Acute hypoxemic/hypercapnic respiratory failure: Markedly improved hypoxia now down to 1 L/min nasal cannula from high flow oxygen 100%
Acute HFrEF exacerbation with acute pulmonary edema seen on CXR from 01/10/2024
Cannot rule out aspiration event-clinically not consistent with it.
Increased troponin: Suspect type II MO vs ACS
New regional motion wall abnormality on echocardiogram 01/07/2024 / new decline on LVEF.
Prior history of coronary artery disease with stents in the past. Multivessel coronary artery disease per family report
Multiorgan failure - resolved
Acute kidney injury/metabolic acidosis
Shock liver suspected - improving
Abdominal pain: Possibly from UTI/ cystitis.
CT abdomen pelvis 01/05/2024: Moderate fecal material throughout the colon. Moderate diffuse bladder wall thickening. No other acute abnormality.
Less likely bowel ischemia as lactic acid has cleared as of 01/07/2024.
Conditions present prior admission:
Coronary artery disease with prior stents
Left bundle branch block
Paroxysmal atrial fibrillation
History of CVA
History of trigeminal neuralgia
Obstructive sleep apnea
Hypertension
Hypothyroidism
Hyperlipidemia
Type 2 diabetes
Depression
Prior UTI-ESBL
Left shoulder replacement complicated by septic shoulder
Subdural hematoma
Overactive bladder
Recurrent UTIs
Cholecystectomy
Hysterectomy
Left hip surgery
Assessment and plan:
Clinically improved as she is off vasopressors, hypoxia is markedly improved and she is almost weaned down to room air, and her creatinine is back at her baseline (0.9-1)
Vasopressors have been discontinued 01/09/2024
Leukocytosis resolved since 01/08
-
Suspect septic shock from UTI/possibly also cardiogenic component given new decrease on LVEF
CT abdomen pelvis with bladder thickening-possible cystitis
Urine culture with Klebsiella ESBL
Continue antibiotics per infectious disease
She is on oral vancomycin twice a day as prophylaxis given her history of C. difficile
Lactic acid has cleared as of 01/07/2024
-
Maintain MAP>65
Hold antihypertensive but need to continue IV diuresis given she is in acute decompensated heart failure
Resume PO anti-hypertensives when clinically able to
-
Shock liver:
AST was >4000, ALT was >3500 on 01/06/2024: Suspect ischemic injury.
Continue to trend LFTs
Patient is a s/p cholecystectomy in the past
-
Lower abdominal pain: Evaluated for bowel ischemia but CT scan did not confirm
Less likely bowel ischemia as lactic acid cleared.
Continue with serial abdominal exam
Amylase and lipase are normal
Cannot rule out cardiac ischemic equivalent vs abdominal pain due to cystitis
Surgery has signed off
Diet has been advanced -currently on full liquid diet. ADAT
-
Hypoxemic respiratory failure due to acute decompensated heart failure/acute pulmonary edema with acute HFrEF exacerbation; Less likely pneumonia clinically. Subsegmental atelectasis also playing a role.
Currently on 1 L nasal cannula. Appears comfortable.
Initial blood gas on 01/06/2024 showed mild hypercapnia with pCO2 42, pH 7.23. Repeat blood gas on 01/07/2024 showed stable hypercapnia with improved pH.
No need for BiPAP
Diurese to maintain net negative fluid balance as tolerated - aim for net (-) 1-1.5L per day over next 48-72 hrs - cardiology on board, defer diuresis to them
Encouraged incentive spirometry
-
Lower extremity Dopplers negative for DVT
No need for VQ scan. Less likely thromboembolic event.
Acute lung injury from septic shock also with possibility.
-
Acute systolic cardiomyopathy-possibly ischemic.
Echocardiogram repeated 01/07/2024 showed new decreased LVEF with motion wall abnormality, possible type II ischemia due to septic shock in the setting of multivessel coronary artery disease-Per family in the past patient not a candidate for coronary
artery bypass but has history of stents.
Currently chest pain-free
Heparin drip never been started-risk outweigh benefit.
Continue conservative management
Cardiac catheterization if renal function remains stable - defer to cardiology
GDMT as per cardiology
Cardiology correspondence reviewed
-
Anemia: Hemoglobin 7.1 acute on chronic
Received 1 unit PRBC on 01/09/2024
No evidence for bleeding.
Continue to trend and transfuse to keep Hb >8 (given recent concern for NSTEMI), plt>20k
-
Acute kidney injury: Likely ATN.
Creatinine decreased to 1
Nephrology following the patient
Continue hemodynamic support
Patient received oral bicarbonate. Hold for now
Encourage oral hydration
Trend BMP
-
Hyperglycemia:
ISS
Goal BG 140-180mg/dL
-
Aspiration precautions
Head of the bed elevation
-
Dr. Miller updated family at the bedside 01/07/2024, 01/08/2024.
Dr. Talley updated the patient and the family at bedside as well on 01/10/2024
-
Patient remains stable on minimal supplemental oxygen currently on 1 L/min breathing comfortably. No additional pulmonary recommendations at this time. Diuresis as per cardiology with upcoming cardiac catheterization with GDMT initiation depending
on her continued stability.
Pulmonary service will now sign off. Thank you for allowing us to be involved in the care of this patient. Please reconsult if there are any additional questions/concerns, or if patient's respiratory status deteriorates.
Total time spent today was 35 minutes for this encounter. Time includes reviewing laboratory test/imaging results, reviewing pertinent medical records, obtaining and reviewing medical history, performing an appropriate exam, ordering medications,
tests and procedures. Time also includes documentation of this encounter, coordinating patient care and communicating with other healthcare professionals. Total time does not include separately billed tests performed on this date of service.

Imaging reviewed:
CXR 01-10-2024: Worsening CHF and small bilateral pleural effusions; Improved aeration in the right lung and worsening left lung airspace disease/pneumonia.
CT abdomen pelvis 01/05/2024:
Small bilateral pleural effusions.
Tiny pericardial effusion.
Prior cholecystectomy.
Enlarged newly calcified right adrenal mass. . Repeat MRI examination recommended.
Findings consistent with prior benign granulomatous disease.
Pancreatic calcifications suggesting chronic pancreatitis.
Moderate fecal material throughout the colon.
Moderate diffuse bladder wall thickening. This can be seen with cystitis or bladder outlet obstruction.
Lower extremity Dopplers 01/07/2024: No DVT
Chest x-ray 01/07/2024: New asymmetric infiltrates right along left. Pneumonia versus asymmetric pulmonary edema
Subjective Data
-
Date of Service:
Date of Service: January 10, 2024
Chief Complaint: Pulmonary Follow Up
Subjective:
Patient seen and evaluated today at bedside. Heart rate 78, BP 142/75 and saturating 96% on 1 L/min nasal cannula. Family at bedside and I answered all of her questions. The patient says she feels well, denies any shortness of breath, chest pain,
fevers or chills.
Review of Systems
General: Other (Negative unless mentioned above)
Objective Data
Data Reviewed
Vital Signs / I&O / Oxygen:
Vital Signs
Temp Pulse Resp BP Pulse Ox
98.7 F 77 19 142/75 93
01/10/24 15:21 01/10/24 14:00 01/10/24 14:00 01/10/24 12:00 01/10/24 08:27
Intake and Output
01/09/24 01/10/24 01/11/24
06:59 06:59 06:59
Intake Total 2411.6 / 2491.6 2310 / 2310 560 / 560
Output Total 1720 / 1770 880 / 880 600 / 600
Balance 691.6 / 721.6 1430 / 1430 -40 / -40
SaO2 93
Nasal Cannula flow liters per 1
minute
Physical Exam
General: Respiratory Distress (negative) and Comfortable
HEENT: Normocephalic and Anicteric
Cardiovascular: S1-S2 and Peripheral Edema (negative)
Respiratory: Wheeze (negative), Crackles (bilateral), Rhonchi (negative) and Accessory Resp Muscle Use (n)
GI: Soft, Non Distended, Non Tender and Normal Bowel Sounds
Neurology: Awake and Alert
Skin: Warm, Dry and Other (Compression stockings on lower extremities bilaterally)
Labs/Micro/Reports
Lab Data
01/10/24 04:25
01/10/24 04:25
Microbiology
01/07/24 06:42 Blood/Venous Blood Culture - Preliminary
No Growth in 72 hours- Final report to follow
01/07/24 06:42 Blood/Venous Blood Culture - Preliminary
No Growth in 72 hours- Final report to follow
01/07/24 02:45 Urine Urine Culture - Final
Klebsiella pneumoniae-ESBL
01/07/24 09:49 Nose MRSA Screen - Final
No Methicillin Resistant Staphylococcus aureus isolated.
--- NOTE | 2024-01-10 09:49 | W.PN.CD ---
Today's Communication / Plan
-
IV diuresis
Cath when OK with medicine and renal and when a bit improved and anemia/LFTs/abdominal pain prove to be stable/improving/further improved
Perhaps cath Wed or more likely
Eventual GDMT for poor LVEF
Increase activity
55 min spent on patient care today: see, examine, review extensive old records, communicated with nurse, hospitalist, and nephrology
Impression / Plan
-
Complex hospitalization with hypotension, shock, and abdominal pain. No clear unifying diagnosis. During this admission she has had an UT that is likely a Type II UT but a primary ACS is not entirely excluded. Admitted 01/02/2024 with chief
complaint of swelling
Improved resp insuf/hypotension/shock liver
Abdominal pain, not felt to be ischemic bowl but that is in DDx
Worsened HFrEF
- CXR worsened heart failure, some appearance could be from poor inspiration
- New decline in LVEF:
- LVEF 01/04/2024: Normal
- LVEF 01/07/2024: 25-30% with extensive anterior, lateral, and apical wall motion changes (Echo IV contrast)
- For eventual GDMT
- Diuresis is Ok with nephrology => will give gentle diuresis and follow response
NSTEMI: Type II vs ACS
- Never had chest pain. EKG has new loss of anterior R waves and echo with impressive new wall motion changes
- Peak troponin 45.8 on 01/06/2024 (first troponin drawn during hospital stay)
- Hope for predischarge cardiac cath with possible PCI
Known complex CAD and in past was not a CABG candidate
- Records from [facility]/Dr Mejia 04/06/2023 reviewed
- Last cath seems to have been an Impella supported Left Main PCI with a HEMAL (4x12 Promus) in 08/2019
- Cath 08/2019: 50-60 LM, 80 LAD, 80 Ramus, 100 RCA
Improved AR on CKD
Acute anemia, not felt to be GI blood loss
- 1 unit PRBC on 01/07/2024
Hx PAF listed, not on anticoagulation given frequent falls, in sinus
Prior CVA
HTN
DM, type II
PAD, prior intervention
Hx of diuretic use, ? prior HFpEF, not listed on assessment in Roberto Barrios note
Subjective:
Feels better. Has some midepigastric pain. No CP or dyspnea
Physical Exam
Vital Signs/Labs
Vital Signs
Temp Pulse Resp BP Pulse Ox
97.6 F 70 17 112/45 93
01/10/24 07:52 01/10/24 08:00 01/10/24 08:00 01/10/24 08:00 01/10/24 08:27
01/09/24 01/10/24 01/11/24
06:59 06:59 06:59
Actual Weight 64.1 kg 66.4 kg
01/10/24 04:25
01/10/24 04:25
PT 19.7 Sec (11.4-14.6) H 01/07/24 04:17
INR 1.69 01/07/24 04:17
APTT 35.9 Sec (23.4-35.0) H 01/07/24 04:17
Magnesium 1.8 mg/dl (1.6-2.3) 01/10/24 04:25
01/02/24
15:25
Bla-L-Vpyzqnbtmmj Pept 7590
LAB Results
01/07/24 01/07/24
10:04 10:40
Troponin I Cancelled 24.600 H*
Physical Exam
Constitutional: No acute distress
EENT: Anicteric
Cardiovascular: Rhythm & rate is regular and Pedal edema present
Respiratory: Respiratory effort normal and Lungs clear to auscul. (decreased at right base)
GI: Soft and Distention absent
Neuro/Psych: Alert
Data Reviewed
-
Date of Service: January 10, 2024
--- NOTE | 2024-01-10 10:08 | W.PN.NEPH.PH ---
Today's Communication / Plan
-
d/c IVF and ok for lasix
ok for VT
Assessment/Plan
-
Impression:
Acute kidney injury
Baseline CKD3a (1.1)
History of recurrent UTI (ESBL)
Coronary artery disease with previous stenting procedure
Paroxysmal atrial fibrillation
History of CVA
Hypothyroidism
Diabetes mellitus type II
History of subdural hematoma
Trigeminal neuralgia
Multiple left shoulder surgeries with septic left shoulder hardware removal
Bladder dysfunction
Chronic pain/ fibromyalgia
Depression
Restless leg syndrome
Anemia
Hyperkalemia
Metabolic acidosis
Elevated LFTs
Abdominal pain
Plan:
Cr improved to 1 baseline
suspect acute kidney injury is prerenal, improved with held diuretics
urine studies notable for protein, blood and LEs with UTI
BP stable and ok for lasix specially her wts are increasing and d/c IVF
hb better post trasnfusion
on chr po bicarb -ok to hold for now for mild met alkalosis
cards planning heart cath this week
ok to d/c mahad, follow bladder scan, pt uses purewick at home for overactive bladder
hypocalcemia s/p IV rider, check I roro and alb in am
d/w nursing
-
-
Date of Service: January 10, 2024
CC / HPI / ROS
-
Chief Complaint:
AR
History of Present Illness:
c/f shock (septic vs. cardiac?)
BP stable off pressors
Cr down to 1., non oliguric
wt increasing
LFTs -improving
Review of Systems:
on NC 1lit
pt denies sob or sp at rest
has lower abd pain only mild
no fever
Labs
-
Labs:
WBC 8.7 10^3/uL (4.8-10.8) 01/10/24 04:25
RBC 3.28 10^6/uL (4.20-5.40) L 01/10/24 04:25
Hgb 8.6 g/dL (12.0-16.0) L D 01/10/24 04:25
Hct 26.6 % (37.0-47.0) L 01/10/24 04:25
Plt Count 184 10^3/uL (130-400) 01/10/24 04:25
Sodium 137 mmol/L (135-145) 01/10/24 04:25
Potassium 3.7 mmol/L (3.5-5.1) 01/10/24 04:25
Chloride 105 mmol/L (98-107) 01/10/24 04:25
Carbon Dioxide 29 mmol/L (22-30) 01/10/24 04:25
BUN 35 mg/dl (7-17) H 01/10/24 04:25
Creatinine 1.0 mg/dL (0.6-1.0) 01/10/24 04:25
eGFR 58.39 01/10/24 04:25
Glucose 127 mg/dl (70-99) H 01/10/24 04:25
Calcium 6.6 mg/dl (8.4-10.2) L* 01/10/24 04:25
Ghw-Y-Ejqoesmkdwu Pept 7590 pg/ml 01/02/24 15:25
Albumin 2.3 g/dl (3.5-5.0) L 01/10/24 04:25
CXR:
IMPRESSION:
Worsening CHF and small bilateral pleural effusions.
Improved aeration in the right lung and worsening left lung airspace disease/pneumonia.
Physical Exam
-
Vital Signs:
Vital Signs
Temp Pulse Resp BP Pulse Ox
97.6 F 70 17 112/45 93
01/10/24 07:52 01/10/24 08:00 01/10/24 08:00 01/10/24 08:00 01/10/24 08:27
Cardiovascular:: Regular rate and rhythm
Lung Excursion:: Normal (decreased BS)
Abdomen:: Nontender and Soft
Extremity Edema:: +2: Bilateral:
[place] Catheter: Yes
Other Findings::
edema noted more in thighs with TEDs on
--- NOTE | 2024-01-10 10:42 | W.PN.ID1 ---
Date of Service
Date of Service: January 10, 2024
Today's Communication
continue ertapenem as she remains symptomatic, continue oral vanc bid
hold cathartics, follow clinically
Assessment / Plan
Diarrhea
H/o C difficile
- only abdominal pain at this time is suprapubic, stool is nonbloody, leukocytosis has resolved; was on scheduled senna and miralax until this AM and was known to have some constipation
- would not pursue further workup at this moment
- agree with hold cathartics
- continue oral vancomycin BID ppx while on broad spectrum rx and for 5 days after
UTI due to ESBL, colonization with ESBL
Shock Liver - resolving
Reported history of C difficile
Numerous Stated Drug Intolerances/allergies
- blood cultures x2 in progress no growth to date
- Urine culture 100K ESBL K pneumoniae
- has not produced a sputum, no infiltrates on todays cxr, cancelled order
- benefits of protonix outweigh risks
- CT a/p 01/05/24: unremarkable kidneys; cystitis
- Continue ertapenem day 5, duration pending course, remains symptomatic today
- note plans for eventual cardiac cath
- follow clinically
����������������������������������������������������������
Chief Complaint
-: Clinical Sepsis
Subjective / Review of Systems
afebrile
bp stable - off of pressors since yesterday
without leukocytosis, L shift resolved
cr stable
low uncorrected ca today
transaminitis continues to resolve
cxr CHF and small bilateral pleural effusions
Urine culture 100K esbl K pneumoniae
Vital Signs / Physical Exam
Vital Signs
Vital Signs
Temp Pulse Resp BP Pulse Ox
97.6 F 70 17 112/45 93
01/10/24 07:52 01/10/24 08:00 01/10/24 08:00 01/10/24 08:00 01/10/24 08:27
Physical Exam
Constitutional: No Acute Distress
Cardiovascular: Regular Rate and S1/S2; Negative Murmur or Rub
Pulmonary: Clear and Symmetric; Negative Wheezes or Rales
Gastrointestinal: Soft, Non Tender, Non Distended and Normal Bowel Sounds
Skin: Warm and Dry; Negative Rash or Jaundice
Objective Data
Lab Data
Lab Results
01/10/24 04:25
01/10/24 04:25
PT 19.7 Sec (11.4-14.6) H 01/07/24 04:17
INR 1.69 01/07/24 04:17
APTT 35.9 Sec (23.4-35.0) H 01/07/24 04:17
Estimated Creat Clear 41 ml/min 01/10/24 04:25
Lactic Acid 1.8 mmol/L (0.7-2.0) 01/07/24 04:17
Total Bilirubin 0.4 mg/dl (0.2-1.3) 01/10/24 04:25
AST 752 U/L (14-36) H* 01/10/24 04:25
ALT 1893 U/L (0-35) H* 01/10/24 04:25
Alkaline Phosphatase 90 U/L (38-126) 01/10/24 04:25
Amylase 55 U/L (30-110) 01/06/24 21:05
Most recent labs reviewed.
Micro Results:
01/07/24 06:42 Blood Culture - Preliminary
Blood/Venous No Growth in 72 hours- Final report to follow
01/07/24 06:42 Blood Culture - Preliminary
Blood/Venous No Growth in 72 hours- Final report to follow
01/07/24 02:45 Urine Culture - Final
Urine Klebsiella pneumoniae-ESBL
01/07/24 09:49 MRSA Screen - Final
Nose No Methicillin Resistant Staphylococcus aureus isolated.
01/02/24 18:53 Urine Culture - Final
Urine
01/02/24 23:14 MRSA Screen - Final
Nose No Methicillin Resistant Staphylococcus aureus isolated.
[2024-01-10 11:21] LABS: Glucose - Point of Care 136 mg/dl (70-99)
[2024-01-10] MEDS: LASIX 40 MG IV (11:27)
[2024-01-10] MEDS: FIRVANQ 125 MG PO ×2 (11:28→22:43)
--- NOTE | 2024-01-10 15:16 | CM ---
CM following re: discharge planning.
Reviewed pt's chart, met with pt and pt's at bedside.
PT and OT evaluations noted - SNF level of care recommended. Both pt and her are aware, expressed their agreement and they requested [facility]. A referral to [facility] made. Awaiting for determination.
D/C plan: [facility].
CM will follow to assist pt with discharge to [facility].
[2024-01-10] MEDS: DEPAKOTE (12 HR RELEASE) 500 MG PO (17:05)
[2024-01-10] MEDS: NOVOLOG FLEXPEN-MODERATE RESISTANCE 3 UNITS SC (17:05)
[2024-01-10 17:11] LABS: Glucose - Point of Care 229 mg/dl (70-99)
[2024-01-10] MEDS: INVANZ 55 MG IV (19:45)
[2024-01-10] MEDS: MORPHINE SULFATE 1 MG IV (19:50)
[2024-01-10] MEDS: REMERON 15 MG PO (22:43)
[2024-01-10] MEDS: FOLVITE 1 MG PO (22:43)
[2024-01-10] MEDS: NOVOLOG FLEXPEN-MODERATE RESISTANCE 9 UNITS SC (22:46)
[2024-01-10 22:57] LABS: Glucose - Point of Care 392 mg/dl (70-99)
[2024-01-11] VITALS (9 sets, daily range): BP systolic 94–155; BP diastolic 47–91; PULSE 78; O2SAT 98; BMI 27.6
[2024-01-11 04:15] LABS: Hematocrit 28.4 % (37.0-47.0); Hemoglobin 9.1 g/dL (12.0-16.0); Mean Corpuscular Volume 84.3 fL (81.0-99.0); Mean Platelet Volume 10.4 fL (7.4-10.4); Platelet Count 197 10^3/uL (130-400); Red Blood Cell Count 3.37 10^6/uL (4.20-5.40); Red Cell Dist. Width 20.6 % (11.5-14.5); White Blood Cell Count 8.9 10^3/uL (4.8-10.8)
[2024-01-11 04:41] LABS: AST (SGOT) 332 U/L (14-36); Albumin 2.3 g/dl (3.5-5.0); Blood Urea Nitrogen 31 mg/dl (7-17); Carbon Dioxide 28 mmol/L (22-30); Estimated Creatinine Clearance 42 ml/min; Glucose 106 mg/dl (70-99); Potassium 3.9 mmol/L (3.5-5.1); Total Bilirubin 0.4 mg/dl (0.2-1.3); eGFR 58.39
[2024-01-11 04:53] LABS: Vitamin D, 25-OH*** 20.1 ng/mL (30-80)
[2024-01-11 04:57] LABS: ALT (SGPT) 1329 U/L (0-35); Alkaline Phosphatase 80 U/L (38-126); Calcium 7.4 mg/dl (8.4-10.2); Chloride 105 mmol/L (98-107); Sodium 139 mmol/L (135-145)
[2024-01-11] MEDS: SYNTHROID 112 MCG PO (05:28)
--- NOTE | 2024-01-11 08:01 | W.PN.CD ---
Addendum entered and electronically signed by Nicko Hayward MD 01/11/24 08:46:
addendum
son was called and updated
Please note the pateitn has a CONTRAST ALLERGY - hives listed.
Patient will need premedication with Prednisone prior to any cath
Original Note:
Today's Communication / Plan
-
continue lasix dosing and monitor renal function
01/10/24 -CXR report with worsding left sided airspace disease. Resp status stable. Defer to pulmonary, ID and hospitalists regarding management. patietn remains on abx
As BP and renal function improved we can slowly work to add GDMT for HFrEF/CM.
will assess timing of cardiac cath with interventional cardiology and primary team
Impression / Plan
-
Complex hospitalization with hypotension, shock, and abdominal pain. No clear unifying diagnosis. During this admission she has had an OR that is likely a Type II OR but a primary ACS is not entirely excluded. Admitted 01/02/2024 with chief
complaint of swelling
Improved resp insuf/hypotension/shock liver
Abdominal pain, not felt to be ischemic bowl but that is in DDx
HFrEF
- CXR worsened heart failure, some appearance could be from poor inspiration
- New decline in LVEF:
- LVEF 01/04/2024: Normal
- LVEF 01/07/2024: 25-30% with extensive anterior, lateral, and apical wall motion changes (Echo IV contrast)
- 01/10/24 CXr with worsening HF and worsing left airspace disease/PNA. Patient comfortable and on one liter O2
- GDMT as tolerated depending of BP and renal function. Note that Metoprolol listed as allergy but patient appears to have been on Coreg on admit.
- Continue lasix and monitor renal function
- abx per primary team and pulm/ critical care.
NSTEMI: Type II vs ACS
- Never had chest pain. EKG has new loss of anterior R waves and echo with impressive new wall motion changes
- Peak troponin 45.8 on 01/06/2024 (first troponin drawn during hospital stay)
- Continued assessment of timing of cardiac cath. plan for later this admit. Will review timing with interventional cardiology
Known complex CAD and in past was not a CABG candidate
- Records from [facility]/Dr Mejia 04/06/2023 reviewed
- Last cath seems to have been an Impella supported Left Main PCI with a HEMAL (4x12 Promus) in 08/2019
- Cath 08/2019: 50-60 LM, 80 LAD, 80 Ramus, 100 RCA
ID -
- ID consult following
- UTI - RSBL
- BC negative ( note that first blood cultures on transfer to ICU were after abx
Improved AR on CKD. From 2.3-1.0
Acute anemia, not felt to be GI blood loss
- 1 unit PRBC on 01/07/2024
- conitnue to monitor
Hx PAF listed, not on anticoagulation given frequent falls, in sinus
Prior CVA
HTN
DM, type II
PAD, prior intervention
Hx of diuretic use, ? prior HFpEF, not listed on assessment in [facility] Barrios note
Subjective:
Feels better. Has some midepigastric pain. No CP or dyspnea
Physical Exam
Vital Signs/Labs
Vital Signs
Temp Pulse Resp BP Pulse Ox
98.0 F 71 23 136/82 98
01/11/24 07:42 01/11/24 06:00 01/11/24 06:00 01/11/24 04:00 01/10/24 22:22
01/10/24 01/11/24 01/12/24
06:59 06:59 06:59
Actual Weight 66.4 kg 66.2 kg
01/11/24 04:00
01/11/24 04:00
PT 19.7 Sec (11.4-14.6) H 01/07/24 04:17
INR 1.69 01/07/24 04:17
APTT 35.9 Sec (23.4-35.0) H 01/07/24 04:17
Magnesium 1.8 mg/dl (1.6-2.3) 01/10/24 04:25
01/02/24
15:25
Jpd-G-Xmdheusbmft Pept 7590
Physical Exam
Constitutional: No acute distress
Cardiovascular: Rhythm & rate is regular
Respiratory: Lungs clear to auscul., Wheeze Absent, Rhonchi Absent and Crackles Present (At bases)
GI: Soft, Non tender and Normal bowel sounds
Neuro/Psych: Alert and Oriented
Other: Skin
Data Reviewed
-
Date of Service: January 11, 2024
Medical Decision Making: Reviewed Test Results
X-Ray/CT/US/MRI/NUC/PET: Report Reviewed by me
Medical Tests (PFT, Pathology etc): Report Reviewed by me
Labs: Labs Reviewed by me
[2024-01-11] MEDS: ASPIR LOW (ENTERIC COATED) 81 MG PO (08:22)
[2024-01-11] MEDS: NOVOLOG FLEXPEN-MODERATE RESISTANCE SC (08:22)
[2024-01-11] MEDS: B COMPLEX w/VITAMIN C 1 CAPLET PO (08:22)
[2024-01-11] MEDS: HEPARIN 5000 UNITS SC ×2 (08:22→21:02)
[2024-01-11] MEDS: CYMBALTA DELAYED RELEASE 60 MG PO (08:22)
[2024-01-11] MEDS: PROTONIX IV 40 MG IV ×2 (08:23→21:04)
[2024-01-11] MEDS: LASIX 40 MG IV (08:23)
[2024-01-11] MEDS: NSS (PRESERVATIVE FREE) 10 ML IV ×2 (08:23→21:04)
[2024-01-11 08:40] LABS: Glucose - Point of Care 81 mg/dl (70-99)
--- NOTE | 2024-01-11 08:46 | CM ---
Patient seen at bedside with physician. Patient accepted by [facility] per All scripts will need to update when patient closer to discharge. CM will continue to follow for discharge planning needs.
Plan; SNF; [facility] when medically appropriate/pending bed availability and auth
--- NOTE | 2024-01-11 08:46 | W.PN.HOSP.TC ---
Today's Communication/Plan
-
cancel V/Q scan
cont abx/lasix
cardiac cath later in stay
apprec all consultants' input
Assessment / Plan
Assessment / Plan
HPI: 78 y/o F with h/o PAF, CKD, cva, htn, hld, dm, anemia presented with b/l LE edema for two weeks. Her Lasix was discontinued while she was here last time due to kidney injury three weeks ago. Her primary care called her on Wednesday, asked her to
call nephrology for diuretics. She couldn't get hold off them. She started having pain. She took her 's hctz, thinking that would help.
On arrival, she has b/l LE edema. BNP in 7000's. Received a dose of Lasix.
BL LE peripheral edema POA, likely related to acute on chronic now systolic heart failure--BNP elevated at 7500--BL LE US neg for DVT--still hypoxic--V/Q scan pending, not sure we even need--Was on IV Lasix, then held due to worsening AR--SHOPFITTER Coreg
and nifedipine DC'ed due to shock (see below)--apprec cards--Follow up Echo 01/03 noted Severely reduced left ventricular systolic function, EF 25-30%. Mild pulmonary hypertension. Compared to the prior study earlier, EF is worsened
New onset diffuse abdominal pain, started overnight of 01/03. There was concern of ischemic colitis, which appears to be resolving--lactic acidosis has resolved--urgent CT AP with PO contrast was unrevealing, noted constipation
Pt was started with Miralax BID, Senokot-S BID, Dulcolax PRN; adjust all bowel regimen to PRN--Cont empiric IV PPI BID--Low dose IV morphine PRN for pain--on full liquids, advance to low residue--apprec GI/surg
Shock, ?distributive/related to ischemic colitis vs septic (with ?UTI)--Shocked liver, resolving--Lactic acidosis, resolved (h/o Recurrent ESBL Klebsiella UTI)--s/p Bicarb drip per renal--Pt was upgraded to ICU 01/05, and pressor Levophed was started
on 01/05 and discontinued on 01/08--LFT improving although still very high--off Tylenol--Urine Cx from 01/06 grew ESBL Klebsiella--Cont ertapenem--Cont empiric PO vanco BID for h/o C diff colitis--ID following
Hyperkalemia, temporized and treated
AR on CKD stage 3--SCr 2.1 -> 1.0; from 1.0 (baseline)--IV Lasix on hold--gentle IVF per renal, consider DC soon--Renal following
NSTEMI--h/o CAD/multivessel disease and was refused bypass surgery at that time due to several risk factors--Follow up Echo 01/03 noted Severely reduced left ventricular systolic function, EF 25-30%. Mild pulmonary hypertension. Compared to the prior
study earlier, EF is worsened--Trop peaked at 45.8 -> 24--Card following--cardiac cath later this admission per cards
New R lung infiltrate noted from 01/06--New acute hypoxic respiratory failure--high flow NC -> weaned to 1L NC (CXR 01/06 with new significant airspace disease within the right lung characterized by interstitial and patchy/more confluent airspace
opacity within the peripheral right midlung. Findings suspicious for pneumonia versus asymmetric pulmonary edema)--MRSA Screen neg--elevated d dimer noted, repeat LE US neg for DVT, VQ scan cancelled
Cont Ertapenem as above--apprec ID
anemia of chronic disease--Hgb at 7.1 on 01/08, transfused 1 unit PRBC, Hgb improved to 8.6--Iron studies, B12, folate levels reviewed and acceptable--Cont empiric Protonix 40 IV BID
Hypocalcemia--repleted
CAD status post stents/Paroxysmal atrial fibrillation per note--Continue aspirin--off Coreg--not on anticoagulation as outpt given frequent falls
Hypothyroidism--Continue levothyroxine
Hyperlipidemia--off statin
Type 2 diabetes--Holding metformin--Sliding scale
Essential hypertension--Off SHOPFITTER nifedipine/Coreg
Trigeminal neuralgia--Continue Depakote
Overactive bladder--On tolterodine at home
Chronic pain/fibromyalgia/depression--Continue duloxetine, mirtazapine
Cough following diet from initial presentation--pt seen by [facility], rec GI given pt's complaints of GERD without official dx or prescribed tx, as well as reported difficulty/coughing/choking with solids more than liquids.
GI felt chronic intermittent dysphagia could be related to esophagitis or presbyesophagus. Recommend Protonix 40mg daily. Can also check outpt EGD/colonoscopy for iron deficiency.
Clinical deconditioning due to shock--PT/OT rec SNF
code status --Full code
DVT prophylaxis� heparin SQ
Dispo: SNF per PT OT eval
Anticipated Discharge: > 48 hours
Subjective/Interval History
-
Date of Service: January 11, 2024
pt has some mild abdominal pain and feels like she is 'forcing her urine'
Objective Data
-
Labs:
Laboratory Results
01/11/24
04:00
WBC 8.9
Hgb 9.1 L
Hct 28.4 L
Plt Count 197
Sodium 139
Potassium 3.9
Chloride 105
Carbon Dioxide 28
BUN 31 H
Creatinine 1.0
Glucose 106 H
Calcium 7.4 L
Total Bilirubin 0.4
AST 332 H
ALT 1329 H*
Alkaline Phosphatase 80
Vital Signs:
max temp for 24 hours
01/10/24
15:21
Temp 98.7 F
Vital Signs
Temp Pulse Resp BP Pulse Ox
98.0 F 77 23 125/47 98
01/11/24 07:42 01/11/24 08:23 01/11/24 06:00 01/11/24 08:23 01/10/24 22:22
I&O
01/10/24 01/11/24 01/12/24
06:59 06:59 06:59
Intake Total 2310 / 2310 1260 / 1260
Output Total 880 / 880 1800 / 1800
Balance 1430 / 1430 -540 / -540
Review of Systems
-
All other systems: Reviewed and negative
Abdomen/GI: Reports Abdominal Pain
Genitourinary: Reports Other ('forcing urine')
Physical Exam
-
General: Well Developed, Well Nourished and No Apparent Distress
HEENT: Normocephalic, Atraumatic and Oxygen
Respiratory: Clear to Auscultation; Negative Wheezes, Rales or Rhonchi
Cardiac: Regular Rhythm and S1/S2; Negative Murmur
GI: Soft, Nontender, Nondistended and Normal Bowel Sounds
Musculoskeletal: No Clubbing, No Cyanosis and No Edema
Skin: Warm
Neuro: Awake and Alert
Psych: Calm
--- NOTE | 2024-01-11 08:52 | W.PN.ID1 ---
Date of Service
Date of Service: January 11, 2024
Today's Communication
- bladder scan - complains of having to 'push' to urinate
- Continue ertapenem day
Assessment / Plan
Diarrhea
H/o C difficile
- only abdominal pain at this time is suprapubic, stool is nonbloody, leukocytosis has resolved; was recently on scheduled senna and miralax and was known to have some constipation - would not pursue further workup at this moment
- agree with holding cathartics
- benefits of protonix outweigh risks
- continue oral vancomycin BID ppx while on broad spectrum rx and for 5 days after
UTI due to ESBL, colonization with ESBL
Shock Liver - resolving
Reported history of C difficile
Numerous Stated Drug Intolerances/allergies
- blood cultures x2 in progress no growth to date
- Urine culture 100K ESBL K pneumoniae
- bladder scan - complains of having to 'push' to urinate
- Continue ertapenem day
- note plans for eventual cardiac cath with steroid premedication
- no objection to steroids from ID perspective
- follow clinically
����������������������������������������������������������
Chief Complaint
-: Clinical Sepsis
Subjective / Review of Systems
remains afebrile
pressors off since 01/08 and BP remains stable
without leukocytosis
hgb improved
cr stable
lfts with continued improvement
01/06 bcx x2 ngtd
'I have to push to urinate'
Vital Signs / Physical Exam
Vital Signs
Vital Signs
Temp Pulse Resp BP Pulse Ox
98.0 F 77 23 125/47 98
01/11/24 07:42 01/11/24 08:23 01/11/24 06:00 01/11/24 08:23 01/10/24 22:22
Physical Exam
Constitutional: No Acute Distress
Cardiovascular: Regular Rate and S1/S2; Negative Murmur or Rub
Pulmonary: Clear and Symmetric; Negative Wheezes or Rales
Gastrointestinal: Soft, Tender (mild diffuse tenderness), Non Distended and Normal Bowel Sounds
Skin: Warm and Dry; Negative Rash or Jaundice
Objective Data
Lab Data
Lab Results
01/11/24 04:00
01/11/24 04:00
PT 19.7 Sec (11.4-14.6) H 01/07/24 04:17
INR 1.69 01/07/24 04:17
APTT 35.9 Sec (23.4-35.0) H 01/07/24 04:17
Estimated Creat Clear 42 ml/min 01/11/24 04:00
Lactic Acid 1.8 mmol/L (0.7-2.0) 01/07/24 04:17
Total Bilirubin 0.4 mg/dl (0.2-1.3) 01/11/24 04:00
AST 332 U/L (14-36) H 01/11/24 04:00
ALT 1329 U/L (0-35) H* 01/11/24 04:00
Alkaline Phosphatase 80 U/L (38-126) 01/11/24 04:00
Amylase 55 U/L (30-110) 01/06/24 21:05
Most recent labs reviewed.
Micro Results:
01/07/24 06:42 Blood Culture - Preliminary
Blood/Venous No Growth in 4 days- Final report to follow
01/07/24 06:42 Blood Culture - Preliminary
Blood/Venous No Growth in 4 days- Final report to follow
01/07/24 02:45 Urine Culture - Final
Urine Klebsiella pneumoniae-ESBL
01/07/24 09:49 MRSA Screen - Final
Nose No Methicillin Resistant Staphylococcus aureus isolated.
01/02/24 18:53 Urine Culture - Final
Urine
01/02/24 23:14 MRSA Screen - Final
Nose No Methicillin Resistant Staphylococcus aureus isolated.
[2024-01-11] MEDS: CALCIUM GLUCONATE 130 MG IV (09:39)
[2024-01-11] MEDS: FIRVANQ 125 MG PO ×2 (10:26→22:29)
[2024-01-11] MEDS: NOVOLOG FLEXPEN-MODERATE RESISTANCE 3 UNITS SC ×2 (11:23→16:50)
[2024-01-11 11:38] LABS: Glucose - Point of Care 224 mg/dl (70-99)
--- NOTE | 2024-01-11 12:20 | W.PN.NEPH.PH ---
Today's Communication / Plan
-
cont lasix
follow PVR
Assessment/Plan
-
Impression:
Acute kidney injury
Baseline CKD3a (1.1)
History of recurrent UTI (ESBL)
Coronary artery disease with previous stenting procedure
Paroxysmal atrial fibrillation
History of CVA
Hypothyroidism
Diabetes mellitus type II
History of subdural hematoma
Trigeminal neuralgia
Multiple left shoulder surgeries with septic left shoulder hardware removal
Bladder dysfunction
Chronic pain/ fibromyalgia
Depression
Restless leg syndrome
Anemia
Hyperkalemia
Metabolic acidosis
Elevated LFTs
Abdominal pain
Plan:
Cr stable at 1 baseline
urine studies notable for protein, blood and LEs with UTI
cont lasix per cards, still vol overload
BP stable
hb better post trasnfusion
on chr po bicarb -ok to hold for now for mild met alkalosis
cards planning heart cath this week
follow PVR since off tobin
hypocalcemia s/p IV rider, start vit D
d/w nursing
-
-
Date of Service: January 11, 2024
CC / HPI / ROS
-
Chief Complaint:
AR
History of Present Illness:
c/f shock (septic vs. cardiac?)
BP stable off pressors
Cr down to 1 and stable., non oliguric
wt no change
LFTs -improving
PVR 219cc off tobin
Review of Systems:
on NC 1lit
pt denies sob or sp at rest
no fever
Labs
-
Labs:
WBC 8.9 10^3/uL (4.8-10.8) 01/11/24 04:00
RBC 3.37 10^6/uL (4.20-5.40) L 01/11/24 04:00
Hgb 9.1 g/dL (12.0-16.0) L 01/11/24 04:00
Hct 28.4 % (37.0-47.0) L 01/11/24 04:00
Plt Count 197 10^3/uL (130-400) 01/11/24 04:00
Sodium 139 mmol/L (135-145) 01/11/24 04:00
Potassium 3.9 mmol/L (3.5-5.1) 01/11/24 04:00
Chloride 105 mmol/L (98-107) 01/11/24 04:00
Carbon Dioxide 28 mmol/L (22-30) 01/11/24 04:00
BUN 31 mg/dl (7-17) H 01/11/24 04:00
Creatinine 1.0 mg/dL (0.6-1.0) 01/11/24 04:00
eGFR 58.39 01/11/24 04:00
Glucose 106 mg/dl (70-99) H 01/11/24 04:00
Calcium 7.4 mg/dl (8.4-10.2) L 01/11/24 04:00
Uoc-Z-Cacjistivjh Pept 7590 pg/ml 01/02/24 15:25
Albumin 2.3 g/dl (3.5-5.0) L 01/11/24 04:00
Physical Exam
-
Vital Signs:
Vital Signs
Temp Pulse Resp BP Pulse Ox
98.2 F 77 14 125/47 94
01/11/24 11:27 01/11/24 08:23 01/11/24 08:00 01/11/24 08:23 01/11/24 09:10
Cardiovascular:: Regular rate and rhythm
Respiratory:: Bilateral: CTA (decreased)
Lung Excursion:: Normal
Abdomen:: Nontender and Soft
Extremity Edema:: +2: Bilateral: (thigh edema)
Tobin Catheter: No
--- NOTE | 2024-01-11 14:22 | PTCARENOTE ---
Received patient to 4 W at 1415 , awake and alert. No c/o pain or discomfort. O2 at 1 LPM via nasal cannula , Oriented to unit and room. Resting at present , in room .
--- NOTE | 2024-01-11 16:04 | W.PN.UPDATE ---
Update Note
Progress Note Update
reviewed timing of cath with interventional cardiology , hospitalists, ID and nephrology.
Will premedicate with prednisone in preparation for probable cath tomorrow . Interventional cardiology can reassess in am.
would also give benadryl in AM after seen by interventional and prior to cath.
[2024-01-11 16:42] LABS: Glucose - Point of Care 224 mg/dl (70-99)
[2024-01-11] MEDS: DELTASONE 50 MG PO (16:50)
[2024-01-11] MEDS: DEPAKOTE (12 HR RELEASE) 500 MG PO (16:51)
[2024-01-11] MEDS: FLUSH (NSS) 2 FLUSH IV (21:05)
[2024-01-11] MEDS: INVANZ 55 MG IV (21:06)
[2024-01-11 21:11] LABS: Glucose - Point of Care 384 mg/dl (70-99)
[2024-01-11] MEDS: NOVOLOG FLEXPEN-MODERATE RESISTANCE 9 UNITS SC (21:27)
[2024-01-11] MEDS: FOLVITE 1 MG PO (21:27)
[2024-01-11] MEDS: REMERON 15 MG PO (21:27)
[2024-01-12] VITALS (15 sets, daily range): BP systolic 118–157; BP diastolic 73–102; BMI 26.8
[2024-01-12 05:02] LABS: Hematocrit 29.4 % (37.0-47.0); Hemoglobin 9.5 g/dL (12.0-16.0); Mean Corp Hgb Conc. 32.3 g/dL (33.0-37.0); Mean Corpuscular Hgb 26.8 pg (27.0-31.0); Mean Corpuscular Volume 82.8 fL (81.0-99.0); Mean Platelet Volume 10.6 fL (7.4-10.4); Platelet Count 207 10^3/uL (130-400); Red Blood Cell Count 3.55 10^6/uL (4.20-5.40); Red Cell Dist. Width 20.3 % (11.5-14.5); White Blood Cell Count 7.3 10^3/uL (4.8-10.8)
[2024-01-12 05:22] LABS: AST (SGOT) 126 U/L (14-36); Albumin 2.3 g/dl (3.5-5.0); Alkaline Phosphatase 86 U/L (38-126); Blood Urea Nitrogen 32 mg/dl (7-17); Calcium 7.9 mg/dl (8.4-10.2); Carbon Dioxide 29 mmol/L (22-30); Chloride 102 mmol/L (98-107); Estimated Creatinine Clearance 38 ml/min; Glucose 302 mg/dl (70-99); Magnesium 1.5 mg/dl (1.6-2.3); Potassium 4.4 mmol/L (3.5-5.1); Sodium 136 mmol/L (135-145); Total Bilirubin 0.3 mg/dl (0.2-1.3); Total Protein 5.1 g/dl (6.3-8.2); eGFR 52.08
[2024-01-12 05:29] LABS: NT-proBNP > 27000 pg/ml
[2024-01-12 05:37] LABS: ALT (SGPT) 915 U/L (0-35)
[2024-01-12] MEDS: SYNTHROID 112 MCG PO (05:44)
[2024-01-12 06:19] LABS: Glucose - Point of Care 256 mg/dl (70-99)
[2024-01-12] MEDS: NOVOLOG FLEXPEN-MODERATE RESISTANCE 5 UNITS SC ×2 (06:43→18:13)
[2024-01-12] MEDS: B COMPLEX w/VITAMIN C 1 CAPLET PO (07:48)
[2024-01-12] MEDS: CYMBALTA DELAYED RELEASE 60 MG PO (07:49)
[2024-01-12] MEDS: HEPARIN 5000 UNITS SC ×2 (07:49→22:02)
[2024-01-12] MEDS: DELTASONE 50 MG PO ×2 (07:49→18:01)
[2024-01-12] MEDS: ASPIR LOW (ENTERIC COATED) 81 MG PO (07:49)
[2024-01-12] MEDS: PROTONIX IV 40 MG IV (07:51)
[2024-01-12] MEDS: NSS (PRESERVATIVE FREE) 10 ML IV (07:51)
[2024-01-12] MEDS: LASIX IV (07:54)
--- NOTE | 2024-01-12 08:14 | W.PN.CD ---
Today's Communication / Plan
-
- Reviewed issues with patient , son, intervnetional cardiology, ID an nephrology. Plan for cath 01/12/24. Patient received Prednisone 01/11/24 and will receive 01/12/24. Give benadryl after seen by interventional cardiology today
cath today ( right and left)
hold AM lasix
Impression / Plan
-
Complex hospitalization with hypotension, shock, and abdominal pain. No clear unifying diagnosis. During this admission she has had an TX that is likely a Type II TX but a primary ACS is not entirely excluded. Admitted 01/02/2024 with chief
complaint of swelling
Improved resp insuf/hypotension/shock liver
Abdominal pain, not felt to be ischemic bowl but that is in DDx
HFrEF
- CXR worsened heart failure, some appearance could be from poor inspiration
- New decline in LVEF:
- LVEF 01/04/2024: Normal
- LVEF 01/07/2024: 25-30% with extensive anterior, lateral, and apical wall motion changes (Echo IV contrast)
- 01/10/24 CXr with worsening HF and worsing left airspace disease/PNA. Patient comfortable and on one liter O2
- GDMT as tolerated depending of BP and renal function. Note that Metoprolol listed as allergy but was on reg an tolerating at home prior to admit. One low BP yesterday but othersie stable. reinitiate meds after cath
- Hold lasix day of cath lasix and monitor renal function
- abx per primary team and pulm/ critical care.
NSTEMI: Type II vs ACS
- Never had chest pain. EKG has new loss of anterior R waves and echo with impressive new wall motion changes
- Peak troponin 45.8 on 01/06/2024 (first troponin drawn during hospital stay)
- Reviewed issues with patient , son, intervnetional cardiology, ID an nephrology. Plan for cath 01/12/24. Patietn received Prednisone 01/11/24 and will receive 01/12/24. Give benadryl after seen by interventional cardiology today
Known complex CAD and in past was not a CABG candidate
- Records from [facility]/Dr Mejia 04/06/2023 reviewed
- Last cath seems to have been an Impella supported Left Main PCI with a HEMAL (4x12 Promus) in 08/2019
- Cath 08/2019: 50-60 LM, 80 LAD, 80 Ramus, 100 RCA
ID -
- ID consult following
- UTI - RSBL
- BC negative ( note that first blood cultures on transfer to ICU were after abx
Improved AR on CKD. From 2.3-1.0
Acute anemia, not felt to be GI blood loss
- 1 unit PRBC on 01/07/2024
- Improving continue to monitor
Hx PAF listed, not on anticoagulation given frequent falls, in sinus
Prior CVA
HTN
DM, type II
PAD, prior intervention
Hx of diuretic use, ? prior HFpEF, not listed on assessment in Roberto Barrios note
Subjective:
Feels better. . No CP or dyspnea
Physical Exam
Vital Signs/Labs
Vital Signs
Temp Pulse Resp BP Pulse Ox
97.3 F 69 17 138/75 96
01/12/24 07:30 01/12/24 07:30 01/12/24 07:30 01/12/24 07:30 01/12/24 07:30
01/11/24 01/12/24 01/13/24
06:59 06:59 06:59
Actual Weight 66.2 kg 64.365 kg
01/12/24 04:34
01/12/24 04:33
PT 19.7 Sec (11.4-14.6) H 01/07/24 04:17
INR 1.69 01/07/24 04:17
APTT 35.9 Sec (23.4-35.0) H 01/07/24 04:17
Magnesium 1.5 mg/dl (1.6-2.3) L 01/12/24 04:33
01/02/24 01/12/24
15:25 04:33
Lbn-X-Fgefvmlcyyg Pept 7590 > 69578
Physical Exam
Constitutional: No acute distress
Cardiovascular: Rhythm & rate is regular
Respiratory: Wheeze Absent, Rhonchi Absent and Other (few crackles at bases)
GI: Soft
Neuro/Psych: Alert
Data Reviewed
-
Date of Service: January 12, 2024
Medical Decision Making: Reviewed Test Results
Echo: Report Reviewed by me
X-Ray/CT/US/MRI/NUC/PET: Report Reviewed by me
Medical Tests (PFT, Pathology etc): Report Reviewed by me
Labs: Labs Reviewed by me
[2024-01-12] MEDS: FIRVANQ 125 MG PO ×2 (10:31→22:03)
--- NOTE | 2024-01-12 11:08 | VATNOTE ---
6/5 Patient has a right midline. On inspection, right arm is swollen, cold to touch, complains of pain. Requested MD for an ultrasound order to r/o clot.
--- NOTE | 2024-01-12 11:45 | W.PN.NEPH.PH ---
Today's Communication / Plan
-
follow BMP
Assessment/Plan
-
Impression:
Acute kidney injury
Baseline CKD3a (1.1)
History of recurrent UTI (ESBL)
Coronary artery disease with previous stenting procedure
Paroxysmal atrial fibrillation
History of CVA
Hypothyroidism
Diabetes mellitus type II
History of subdural hematoma
Trigeminal neuralgia
Multiple left shoulder surgeries with septic left shoulder hardware removal
Bladder dysfunction
Chronic pain/ fibromyalgia
Depression
Restless leg syndrome
Anemia
Hyperkalemia
Metabolic acidosis
Elevated LFTs
Abdominal pain
Plan:
for cardiac cath
follow BMP
hold lasix today
-
-
Date of Service: January 12, 2024
CC / HPI / ROS
-
Chief Complaint:
AR
History of Present Illness:
BP stable off pressors
Cr stable at 1.1
wt no change
LFTs -improving
Review of Systems:
on NC 1lit
pt denies sob or sp at rest
no fever
Labs
-
Labs:
WBC 7.3 10^3/uL (4.8-10.8) 01/12/24 04:34
RBC 3.55 10^6/uL (4.20-5.40) L 01/12/24 04:34
Hgb 9.5 g/dL (12.0-16.0) L 01/12/24 04:34
Hct 29.4 % (37.0-47.0) L 01/12/24 04:34
Plt Count 207 10^3/uL (130-400) 01/12/24 04:34
Sodium 136 mmol/L (135-145) 01/12/24 04:33
Potassium 4.4 mmol/L (3.5-5.1) 01/12/24 04:33
Chloride 102 mmol/L (98-107) 01/12/24 04:33
Carbon Dioxide 29 mmol/L (22-30) 01/12/24 04:33
BUN 32 mg/dl (7-17) H 01/12/24 04:33
Creatinine 1.1 mg/dL (0.6-1.0) H 01/12/24 04:33
eGFR 52.08 01/12/24 04:33
Glucose 302 mg/dl (70-99) H 01/12/24 04:33
Calcium 7.9 mg/dl (8.4-10.2) L 01/12/24 04:33
Hrd-W-Twzzxiolxcc Pept > 52728 pg/ml 01/12/24 04:33
Albumin 2.3 g/dl (3.5-5.0) L 01/12/24 04:33
Physical Exam
-
Vital Signs:
Vital Signs
Temp Pulse Resp BP Pulse Ox
98.0 F 70 18 125/77 100
01/12/24 11:15 01/12/24 11:15 01/12/24 11:15 01/12/24 11:15 01/12/24 11:15
Cardiovascular:: Regular rate and rhythm
Respiratory:: Bilateral: Coarse
Lung Excursion:: Normal
Abdomen:: Nontender and Soft
Bowel Sounds:: Normal
Extremity Edema:: +1: Bilateral:
[2024-01-12 12:02] LABS: Glucose - Point of Care 244 mg/dl (70-99)
[2024-01-12] MEDS: NOVOLOG FLEXPEN-MODERATE RESISTANCE 3 UNITS SC ×2 (12:22→22:07)
--- NOTE | 2024-01-12 12:45 | W.PN.ID1 ---
Date of Service
Date of Service: January 12, 2024
Today's Communication
steroids for contrast today
c/w ertapenem
Assessment / Plan
UTI due to ESBL, colonization with ESBL
Shock Liver - resolving
Reported history of C difficile
Numerous Stated Drug Intolerances/allergies
- blood cultures x2 finalized negative
- Urine culture 100K ESBL K pneumoniae
- bladder scan - complains of having to 'push' to urinate
- Continue ertapenem day 7
Diarrhea
H/o C difficile
- only abdominal pain at this time is suprapubic, stool is nonbloody, leukocytosis has resolved; was recently on scheduled senna and miralax and was known to have some constipation - would not pursue further workup at this moment
- agree with holding cathartics
- benefits of protonix outweigh risks
- continue oral vancomycin BID ppx while on broad spectrum rx and for 5 days after
- s/p cardiac cath with steroid premedication
- no objection to steroids from ID perspective
- follow clinically
����������������������������������������������������������
Chief Complaint
-: UTI
Subjective / Review of Systems
afebrile
bp stable
without leukocytosis
cr stable
abdominal pain resolved
Vital Signs / Physical Exam
Vital Signs
Vital Signs
Temp Pulse Resp BP Pulse Ox
98.0 F 70 18 125/77 100
01/12/24 11:15 01/12/24 11:15 01/12/24 11:15 01/12/24 11:15 01/12/24 11:15
Physical Exam
Constitutional: No Acute Distress
Cardiovascular: Regular Rate and S1/S2; Negative Murmur or Rub
Pulmonary: Clear and Symmetric; Negative Wheezes or Rales
Gastrointestinal: Soft, Non Tender, Non Distended and Normal Bowel Sounds
Genito-Urinary: Negative Suprapubic Tenderness
Skin: Warm and Dry; Negative Rash or Jaundice
Objective Data
Lab Data
Lab Results
01/12/24 04:34
01/12/24 04:33
PT 19.7 Sec (11.4-14.6) H 01/07/24 04:17
INR 1.69 01/07/24 04:17
APTT 35.9 Sec (23.4-35.0) H 01/07/24 04:17
Estimated Creat Clear 38 ml/min 01/12/24 04:33
Lactic Acid 1.8 mmol/L (0.7-2.0) 01/07/24 04:17
Total Bilirubin 0.3 mg/dl (0.2-1.3) 01/12/24 04:33
AST 126 U/L (14-36) H 01/12/24 04:33
ALT 915 U/L (0-35) H* 01/12/24 04:33
Alkaline Phosphatase 86 U/L (38-126) 01/12/24 04:33
Amylase 55 U/L (30-110) 01/06/24 21:05
Most recent labs reviewed.
Micro Results:
01/07/24 06:42 Blood Culture - Final
Blood/Venous No Growth - Final Report
01/07/24 06:42 Blood Culture - Final
Blood/Venous No Growth - Final Report
01/07/24 02:45 Urine Culture - Final
Urine Klebsiella pneumoniae-ESBL
01/07/24 09:49 MRSA Screen - Final
Nose No Methicillin Resistant Staphylococcus aureus isolated.
01/02/24 18:53 Urine Culture - Final
Urine
01/02/24 23:14 MRSA Screen - Final
Nose No Methicillin Resistant Staphylococcus aureus isolated.
--- NOTE | 2024-01-12 14:59 | W.PN.HOSP.TC ---
Today's Communication/Plan
-
US right arm
cardiac cath
Assessment / Plan
Assessment / Plan
HPI: 78 y/o F with h/o PAF, CKD, cva, htn, hld, dm, anemia presented with b/l LE edema for two weeks. Her Lasix was discontinued while she was here last time due to kidney injury three weeks ago. Her primary care called her on Wednesday, asked her to
call nephrology for diuretics. She couldn't get hold off them. She started having pain. She took her 's hctz, thinking that would help.
On arrival, she has b/l LE edema. BNP in 0's. Received a dose of Lasix.
BL LE peripheral edema POA, likely related to acute on chronic now systolic heart failure--BNP elevated at 7500--BL LE US neg for DVT--still hypoxic---Was on IV Lasix, then held due to worsening AR--DIRECTOR MED[employer]AF[employer] Coreg and nifedipine DC'ed due to shock (see
below)--apprec cards--Follow up Echo 01/03 noted Severely reduced left ventricular systolic function, EF 25-30%. Mild pulmonary hypertension. Compared to the prior study earlier, EF is worsened--for cardiac cath today 01/11--getting US right arm
New onset diffuse abdominal pain, started overnight of 01/03. There was concern of ischemic colitis, which appears to be resolving--lactic acidosis has resolved--urgent CT AP with PO contrast was unrevealing, noted constipation--Pt was started with
Miralax BID, Senokot-S BID, Dulcolax PRN; adjust all bowel regimen to PRN--Cont empiric IV PPI BID--Low dose IV morphine PRN for pain--on low residue--apprec GI/surg
Shock, ?distributive/related to ischemic colitis vs septic (with ?UTI)--Shocked liver, resolving--Lactic acidosis, resolved (h/o Recurrent ESBL Klebsiella UTI)--s/p Bicarb drip per renal--Pt was upgraded to ICU 01/05, and pressor Levophed was started
on 01/05 and discontinued on 01/08--LFT improving although still very high--off Tylenol--Urine Cx from 01/06 grew ESBL Klebsiella--Cont ertapenem--Cont empiric PO vanco BID for h/o C diff colitis--ID following
Hyperkalemia-- treated
AR on CKD stage 3--SCr 2.1 -> 1.0; from 1.0 (baseline)--IV Lasix on hold--gentle IVF per renal, consider DC soon--Renal following
NSTEMI--h/o CAD/multivessel disease and was refused bypass surgery at that time due to several risk factors--Follow up Echo 01/03 noted Severely reduced left ventricular systolic function, EF 25-30%. Mild pulmonary hypertension. Compared to the prior
study earlier, EF is worsened--Trop peaked at 45.8 -> 24--Card following--cardiac cath today 01/11
New R lung infiltrate noted from 01/06--New acute hypoxic respiratory failure--high flow NC -> weaned to 1L NC (CXR 01/06 with new significant airspace disease within the right lung characterized by interstitial and patchy/more confluent airspace
opacity within the peripheral right midlung. Findings suspicious for pneumonia versus asymmetric pulmonary edema)--MRSA Screen neg--elevated d dimer noted, repeat LE US neg for DVT, VQ scan cancelled
Cont Ertapenem as above--apprec ID
anemia of chronic disease--Hgb at 7.1 on 01/08, transfused 1 unit PRBC, Hgb improved to 8.6--Iron studies, B12, folate levels reviewed and acceptable--Cont empiric Protonix 40 IV BID
Hypocalcemia--repleted
CAD status post stents/Paroxysmal atrial fibrillation per note--Continue aspirin--off Coreg--not on anticoagulation as outpt given frequent falls
Hypothyroidism--Continue levothyroxine
Hyperlipidemia--off statin
Type 2 diabetes--Holding metformin--Sliding scale
Essential hypertension--Off [employer] nifedipine/Coreg
Trigeminal neuralgia--Continue Depakote
Overactive bladder--On tolterodine at home
Chronic pain/fibromyalgia/depression--Continue duloxetine, mirtazapine
Cough following diet from initial presentation--pt seen by [facility], rec GI given pt's complaints of GERD without official dx or prescribed tx, as well as reported difficulty/coughing/choking with solids more than liquids.
GI felt chronic intermittent dysphagia could be related to esophagitis or presbyesophagus. Recommend Protonix 40mg daily. Can also check outpt EGD/colonoscopy for iron deficiency.
Clinical deconditioning due to shock--PT/OT rec SNF
code status --Full code
DVT prophylaxis� heparin SQ
Dispo: SNF per PT OT eval
Anticipated Discharge: 24 - 48 hours
Subjective/Interval History
-
Date of Service: January 12, 2024
pt without c/o
Objective Data
-
Labs:
Laboratory Results
01/12/24 01/12/24
04:33 04:34
WBC 7.3
Hgb 9.5 L
Hct 29.4 L
Plt Count 207
Sodium 136
Potassium 4.4
Chloride 102
Carbon Dioxide 29
BUN 32 H
Creatinine 1.1 H
Glucose 302 H
Calcium 7.9 L
Total Bilirubin 0.3
AST 126 H
ALT 915 H*
Alkaline Phosphatase 86
Vital Signs:
max temp for 24 hours
01/12/24
11:15
Temp 98.0 F
Vital Signs
Temp Pulse Resp BP Pulse Ox
98.0 F 70 18 125/77 100
01/12/24 11:15 01/12/24 11:15 01/12/24 11:15 01/12/24 11:15 01/12/24 11:15
I&O
01/11/24 01/12/24 01/13/24
06:59 06:59 06:59
Intake Total 1260 / 1260 1195 / 1195
Output Total 1800 / 1800 177 / 177
Balance -540 / -540 -580 / -580
Review of Systems
-
All other systems: Reviewed and negative
Physical Exam
-
General: Well Developed, Well Nourished and No Apparent Distress
HEENT: Normocephalic and Atraumatic
Respiratory: Clear to Auscultation; Negative Wheezes
Cardiac: Regular Rhythm, S1/S2 and Murmur
GI: Soft, Nontender, Nondistended and Normal Bowel Sounds
Musculoskeletal: No Clubbing, No Cyanosis and Edema, Right Upper Extrem
Neuro: Awake and Alert
[2024-01-12 16:58] LABS: ACT-LR - POC 137 Seconds (116-155)
--- NOTE | 2024-01-12 17:06 | ITS.CL.CATH ---
Resident Services Coordinator - Catheterization
Cardiac Catheterization
Procedure Report:
CARDIAC CATHETERIZATION REPORT
Date of Procedure: 01/12/2024
Referring: Nicko Hayward M.D.
INDICATION: New cardiomyopathy, troponin elevation, known coronary artery disease.
PROCEDURE:
1. Left heart catheterization.
2. Coronary angiography.
3. Left ventriculography.
ACCESS:
6 Norwegian right common femoral artery using a modified Seldinger technique with a micropuncture kit under ultrasound guidance.
CATHETERS:
1. 5 Norwegian JR4.
2. 5 Norwegian JL 4.
3. 5 Norwegian angled pigtail.
HEMODYNAMIC DATA
Weight (kg): 64.0
AO (s/d/x, mmHg): 162/83/118
LV (s/x mmHg): 165/30 (A wave to 45)
LEFT VENTRICULOGRAPHY: Performed in an [place] projection. The ventricle is dilated with severe, diffuse global hypokinesis, perhaps a little worse at the apex with severely reduced systolic function. Left ventricular ejection fraction estimated at
30%. Severe mitral valve regurgitation is observed. There is no aortic valve insufficiency. The aortic root appears normal. There is mild dilation of the ascending aorta. The visualized descending aorta appears normal.
CORONARY ANGIOGRAPHY
Dominance: Right.
Left Main: Normal size, trifurcating vessel. A patent stent is present in the body of the vessel with no evidence of in-stent restenosis.
LAD: Normal size vessel giving rise to 3 diagonals. There is a densely calcified, 30% lesion in the proximal LAD. There is a long, 30% lesion in the mid vessel. The second diagonal is a sizable branch that parallels the true LAD and supplies
the apex. The vessel is moderately diffusely diseased with a 70% lesion in the proximal margin followed by a 60% lesion in the body of the vessel. At this point, the artery is 1 mm in diameter and not amenable to intervention.
Ramus: Small to medium size vessel that is diffusely diseased and not amenable to intervention.
Circumflex: Normal size, nondominant vessel giving rise to a single obtuse marginal. There is a 40% lesion in the origin of OM1.
RCA: Normal size, dominant vessel that is chronically totally occluded in its proximal margin. The distal RCA/RPDA is supplied by collaterals from the LAD.
INTERVENTION(S)
None.
Closure Device: Vascular band.
Radiation (mGy): 225.50
DAP (cm2.Gy): 22.1563
Fluoroscopy time (minutes): 3.5
Sedation time (minutes): 46
CONCLUSIONS
1. Right dominant circulation with chronic total occlusion of the proximal RCA, densely calcified 30% lesion in the proximal LAD, a long 30% lesion in the mid vessel and diffuse disease of the second diagonal which parallels the LAD and supplies
the apex but is too small for intervention, a small to medium size ramus that is diffusely diseased and not amenable to intervention and a 40% lesion in the origin of OM1.
2. Dilated left ventricle with severe global hypokinesis, perhaps worse in the apex with severe LV systolic dysfunction, LV ejection fraction 30%.
3. Severe mitral valve regurgitation.
4. Severely elevated filling pressures (LVEDP = 30 mmHg at 64.0 kg) with severe diastolic dysfunction (A wave to 45 mmHg).
5. No acute ischemic cause for sudden systolic dysfunction. Considerations include sepsis induced LV dysfunction versus Takotsubo variant versus postviral myocarditis (no history of URI, less likely).
RECOMMENDATIONS:
1. Expectant management after cardiac catheterization via right common femoral approach.
2. Limited weight bearing for one week.
3. Aggressive diuresis given severity of LVEDP and diastolic dysfunction.
4. Guideline directed medical therapy as hemodynamics will tolerate.
5. Close follow-up of severe mitral valve regurgitation.
Copy to: Lance Curry M.D., Nicko Hayward M.D., Mitchell Hahn M.D., RADHA Henderson
Francisco Alvarenga, DO, FACC, FACP
[2024-01-12] MEDS: DEPAKOTE (12 HR RELEASE) PO (17:28)
[2024-01-12] MEDS: LASIX 80 MG IV (18:04)
[2024-01-12 18:13] LABS: Glucose - Point of Care 269 mg/dl (70-99)
--- NOTE | 2024-01-12 18:30 | PTCARENOTE ---
Received patient from labor relations manager awake alert oriented. Right femoral dressing clean dry intact. Vital signs documented as ordered. Reviewed instructions with patient , verbalized understanding. Right lower extremity with good neurovascular checks.
Call estrada in reach .
--- NOTE | 2024-01-12 18:31 | VATNOTE ---
01/11 Pending US to be completed in right arm. RT UAC measuring 29cm. +BR. pain below the midline site.
--- NOTE | 2024-01-12 20:14 | PTCARENOTE ---
RADHA Hernandez notified of patients bloody urine not noted prior. Stat H and H ordered. Pt vitals stable.
[2024-01-12 20:37] LABS: Hemoglobin 10.5 g/dL (12.0-16.0)
[2024-01-12] MEDS: INVANZ 60 MG IV (21:07)
[2024-01-12 21:20] LABS: Glucose - Point of Care 229 mg/dl (70-99)
[2024-01-12] MEDS: FOLVITE 1 MG PO (22:03)
[2024-01-12] MEDS: REMERON 15 MG PO (22:04)
[2024-01-12] MEDS: PROTONIX 40 MG PO (22:04)
[2024-01-12] MEDS: MORPHINE SULFATE 1 MG IV (22:06)
[2024-01-13] VITALS (15 sets, daily range): BP systolic 102–159; BP diastolic 57–97; PULSE 2–102; BMI 26.5
[2024-01-13] MEDS: SYNTHROID 112 MCG PO (06:05)
--- NOTE | 2024-01-13 06:24 | W.PN.UPDATE ---
Update Note
Progress Note Update
RN notified patient had blood color in urine, Patient is on heparin SQ, s/p cath, did stat H/H and is stable at 10.5. per RN urine was getting more clear and color in pink tinged now. Patient without any complaints.
[2024-01-13 06:48] LABS: Hematocrit 27.6 % (37.0-47.0); Mean Corp Hgb Conc. 32.6 g/dL (33.0-37.0); Mean Corpuscular Hgb 26.4 pg (27.0-31.0); Mean Corpuscular Volume 80.9 fL (81.0-99.0); Mean Platelet Volume 10.7 fL (7.4-10.4); Platelet Count 235 10^3/uL (130-400); Red Blood Cell Count 3.41 10^6/uL (4.20-5.40); Red Cell Dist. Width 20.8 % (11.5-14.5); White Blood Cell Count 9.2 10^3/uL (4.8-10.8)
[2024-01-13 07:06] LABS: Blood Urea Nitrogen 35 mg/dl (7-17); Calcium 7.9 mg/dl (8.4-10.2); Carbon Dioxide 27 mmol/L (22-30); Chloride 101 mmol/L (98-107); Estimated Creatinine Clearance 37 ml/min; Glucose 332 mg/dl (70-99); Potassium 4.5 mmol/L (3.5-5.1); Sodium 136 mmol/L (135-145); eGFR 52.08
[2024-01-13 07:25] LABS: Glucose - Point of Care 343 mg/dl (70-99)
--- NOTE | 2024-01-13 09:11 | W.PN.CD ---
Today's Communication / Plan
-
continue diuretic and wean O2 as tolerated
GDMT as BP will tolerated
Coreg 3.125mg BID added
Impression / Plan
-
Complex hospitalization with hypotension, shock, and abdominal pain. No clear unifying diagnosis. During this admission she has had an ME that is likely a Type II ME but a primary ACS is not entirely excluded. Admitted 01/02/2024 with chief
complaint of swelling
Improved resp insuf/hypotension/shock liver
Abdominal pain, not felt to be ischemic bowl but that is in DDx
HFrEF
- CXR worsened heart failure, some appearance could be from poor inspiration
- New decline in LVEF:
- LVEF 01/04/2024: Normal
- LVEF 01/07/2024: 25-30% with extensive anterior, lateral, and apical wall motion changes (Echo IV contrast)
- 01/10/24 CXr with worsening HF and worsing left airspace disease/PNA. Patient comfortable and on one liter O2
- GDMT as tolerated depending of BP and renal function. Note that Metoprolol listed as allergy but was on reg an tolerating at home prior to admit. One low BP yesterday but othersie stable. reinitiate meds after cath
- Continue lasix
NSTEMI: Type II vs ACS
- Never had chest pain. EKG has new loss of anterior R waves and echo with impressive new wall motion changes
- Peak troponin 45.8 on 01/06/2024 (first troponin drawn during hospital stay)
- Reviewed issues with patient , son, intervnetional cardiology, ID an nephrology. Plan for cath 01/12/24. Patietn received Prednisone 01/11/24 and will receive 01/12/24. Give benadryl after seen by interventional cardiology today
Known complex CAD and in past was not a CABG candidate
- Records from [facility]/Dr Mejia 04/06/2023 reviewed
- Last cath seems to have been an Impella supported Left Main PCI with a HEMAL (4x12 Promus) in 08/2019
- Cath 08/2019: 50-60 LM, 80 LAD, 80 Ramus, 100 RCA
- cath this admit 01/13/24without acute ischmeic disease . LM stent patient. 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
ID -
- ID consult following
- UTI - RSBL
- BC negative ( note that first blood cultures on transfer to ICU were after abx
Improved AR on CKD. From 2.3-1.0
Acute anemia, not felt to be GI blood loss
- 1 unit PRBC on 01/07/2024
- Improving continue to monitor
Hx PAF listed, not on anticoagulation given frequent falls, in sinus
Prior CVA
HTN
DM, type II
PAD, prior intervention
Hx of diuretic use, ? prior HFpEF, not listed on assessment in Roberto Barrios note
CARDIAC CATH 01/13/24
CONCLUSIONS
1. Right dominant circulation with chronic total occlusion of the proximal RCA, densely calcified 30% lesion in the proximal LAD, a long 30% lesion in the mid vessel and diffuse disease of the second diagonal which parallels the LAD and supplies
the apex but is too small for intervention, a small to medium size ramus that is diffusely diseased and not amenable to intervention and a 40% lesion in the origin of OM1.
2. Dilated left ventricle with severe global hypokinesis, perhaps worse in the apex with severe LV systolic dysfunction, LV ejection fraction 30%.
3. Severe mitral valve regurgitation.
4. Severely elevated filling pressures (LVEDP = 30 mmHg at 64.0 kg) with severe diastolic dysfunction (A wave to 45 mmHg).
5. No acute ischemic cause for sudden systolic dysfunction. Considerations include sepsis induced LV dysfunction versus Takotsubo variant versus postviral myocarditis (no history of URI, less likely).
Subjective:
Feels better. . No CP or dyspnea
Physical Exam
Vital Signs/Labs
Vital Signs
Temp Pulse Resp BP Pulse Ox
97.6 F 82 18 136/82 96
01/13/24 07:30 01/13/24 07:30 01/13/24 07:30 01/13/24 07:30 01/13/24 07:30
01/12/24 01/13/24 01/14/24
06:59 06:59 06:59
Actual Weight 64.365 kg 63.56 kg
01/13/24 06:03
01/13/24 06:03
PT 19.7 Sec (11.4-14.6) H 01/07/24 04:17
INR 1.69 01/07/24 04:17
APTT 35.9 Sec (23.4-35.0) H 01/07/24 04:17
Magnesium 1.5 mg/dl (1.6-2.3) L 01/12/24 04:33
01/02/24 01/12/24
15:25 04:33
Ovv-D-Ynvxnmgmeld Pept 7590 > 84885
Physical Exam
Constitutional: No acute distress
Respiratory: Other (decreased at bases )
GI: Soft
Neuro/Psych: Alert
Other: Other (radial and femoral cath sites fine)
Data Reviewed
-
Date of Service: January 13, 2024
Medical Decision Making: Review of Case with other Provider (nurse)
Echo: Report Reviewed by me
Medical Tests (PFT, Pathology etc): Report Reviewed by me
Labs: Labs Ordered by me
[2024-01-13] MEDS: NOVOLOG FLEXPEN-MODERATE RESISTANCE 7 UNITS SC ×2 (09:39→14:05)
[2024-01-13] MEDS: ASPIR LOW (ENTERIC COATED) 81 MG PO (09:41)
[2024-01-13] MEDS: HEPARIN 5000 UNITS SC ×2 (09:41→19:37)
[2024-01-13] MEDS: CYMBALTA DELAYED RELEASE 60 MG PO (09:42)
[2024-01-13] MEDS: PROTONIX 40 MG PO ×2 (09:42→19:32)
[2024-01-13] MEDS: B COMPLEX w/VITAMIN C 1 CAPLET PO (09:43)
[2024-01-13] MEDS: COREG 3.125 MG PO ×2 (09:48→19:32)
[2024-01-13] MEDS: FIRVANQ 125 MG PO (11:17)
--- NOTE | 2024-01-13 11:35 | W.PN.NEPH.PH ---
Today's Communication / Plan
-
diurese
Assessment/Plan
-
Impression:
Acute kidney injury
Baseline CKD3a (1.1)
History of recurrent UTI (ESBL)
Coronary artery disease with previous stenting procedure
Paroxysmal atrial fibrillation
History of CVA
Hypothyroidism
Diabetes mellitus type II
History of subdural hematoma
Trigeminal neuralgia
Multiple left shoulder surgeries with septic left shoulder hardware removal
Bladder dysfunction
Chronic pain/ fibromyalgia
Depression
Restless leg syndrome
Anemia
Hyperkalemia
Metabolic acidosis
Elevated LFTs
Abdominal pain
Plan:
diurese with lasix 40mg IV BID
follow BMP
-
-
Date of Service: January 13, 2024
CC / HPI / ROS
-
Chief Complaint:
AR
History of Present Illness:
BP stable off pressors
Cr stable at 1.1
wt lower
LFTs -improving
s/p cardiac cath 01/11-high pressures/decompensated HF
Review of Systems:
on NC 1lit
pt denies sob or sp at rest
no fever
Labs
-
Labs:
WBC 9.2 10^3/uL (4.8-10.8) 01/13/24 06:03
RBC 3.41 10^6/uL (4.20-5.40) L 01/13/24 06:03
Hgb 9.0 g/dL (12.0-16.0) L 01/13/24 06:03
Hct 27.6 % (37.0-47.0) L 01/13/24 06:03
Plt Count 235 10^3/uL (130-400) 01/13/24 06:03
Sodium 136 mmol/L (135-145) 06/06/24 06:03
Potassium 4.5 mmol/L (3.5-5.1) 01/13/24 06:03
Chloride 101 mmol/L (98-107) 01/13/24 06:03
Carbon Dioxide 27 mmol/L (22-30) 01/13/24 06:03
BUN 35 mg/dl (7-17) H 01/13/24 06:03
Creatinine 1.1 mg/dL (0.6-1.0) H 01/13/24 06:03
eGFR 52.08 01/13/24 06:03
Glucose 332 mg/dl (70-99) H 01/13/24 06:03
Calcium 7.9 mg/dl (8.4-10.2) L 01/13/24 06:03
Ppw-E-Bstdfgvsfkc Pept > 58298 pg/ml 01/12/24 04:33
Albumin 2.3 g/dl (3.5-5.0) L 01/12/24 04:33
Physical Exam
-
Vital Signs:
Vital Signs
Temp Pulse Resp BP Pulse Ox
98.3 F 111 17 159/91 93
01/13/24 11:30 01/13/24 11:30 01/13/24 11:30 01/13/24 11:30 01/13/24 11:30
Cardiovascular:: Regular rate and rhythm
Respiratory:: Bilateral: Coarse
Lung Excursion:: Normal
Abdomen:: Nontender and Soft
Bowel Sounds:: Normal
Extremity Edema:: +1: Bilateral:
[2024-01-13 11:45] LABS: Glucose - Point of Care 436 mg/dl (70-99)
[2024-01-13] MEDS: LASIX 40 MG IV ×2 (11:52→16:01)
[2024-01-13 12:30] LABS: Glucose 391 mg/dl (70-99)
[2024-01-13] MEDS: MORPHINE SULFATE 1 MG IV ×2 (12:30→17:37)
--- NOTE | 2024-01-13 12:30 | RR ---
A Rapid Response was called on this patient, please see Rapid Response form.11:50 Noted pt increase shortness of breath,diaphoretic noted on 02 2l VIA N/C (pulse ox decreasing to 87%)Lasix 40 mg IV given as ordered. Blood sugar read HI on accucheck.
lab glucose level ordered stat.EKG done, pt rhythm change to a-flutter DR. Horton at bedside. Place pt on non-rebreather Mask (pulse ox increase to 93%.
1230 Morphine 1mg IV given as ordered per MD. Pt transferred to ICU via bed, transported with ICU nurse.
--- NOTE | 2024-01-13 12:31 | CM ---
Addendum entered by Marjan Lynch 01/13/24 12:49:
Patient called by physician, patient for transition to ICU.
Original Note:
Patient seen at bedside with physician. Rapid in process. Patient with non rebreather mask on. CM will continue to follow for discharge planning needs.
Plan; [facility] pending bed availability
--- NOTE | 2024-01-13 12:48 | CON.INTV ---
Consultation
Consultation Request
Date/Time Consultation Requested: 01/13/2024 - 1222
Date/Time Consultation Performed: 01/13/2024 - 1240
Requesting Provider: Dr. Horton
Performing Provider: Dr. Talley
Reason for Consultation: Respiratory distress/Hypoxia
Medical History
-
Chief Complaint: Lower extremity swelling/pain
History of Present Illness:
78-year-old woman with history of paroxysmal atrial fibrillation, coronary artery disease with prior stents, not a candidate for coronary artery bypass per family report, chronic kidney disease, heart failure with preserved ejection fraction, prior
ESBL UTI, prior C. difficile presented initially on 01/02/2024 with increased bilateral lower extremity swelling, lower extremity pain. At that time denied any fevers. Patient initially was diuresed.
Initially without leukocytosis. On 01/05/2024 developed leukocytosis of 14,000. After diuresis patient had a rise in creatinine. Developed metabolic acidosis. Subsequently developed lower abdominal pain with hypotension. Required transfer to the
critical care unit on 01/06/2024. She has developed new multiorgan failure with acute kidney injury, possibly ischemic injury of the liver with significantly elevated LFTs, she was evaluated for possible bowel ischemia. Troponin increased up to 40.
Chest x-ray showed new asymmetric infiltrate. Patient denied any sputum production or hemoptysis. She had been on antibiotics since onset of abdominal pain. Echocardiogram performed showed decreased LVEF with some motion wall abnormalities. Per
family members patient had a stent in the past and also he was evaluated for possible CABG but was not a candidate. She was being monitored in the ICU due to septic shock from UTI with urine culture growing ESBL�Klebsiella pneumonia. Her hypoxic
respiratory failure had markedly improved and she was down to nasal cannula from high flow 100% and was transferred out of the ICU on 01/09/2024. On 01/09 she was on 1L/min NC breathing comfortably. On 01/12/2024 she underwent a left heart cath showing
severe MR with severely elevated filling pressures with LVEDP of 30 mmHg, and a CLOTH HAND of the proximal RCA, 30% densely calcified lesion in the proximal LAD, and a 40% lesion in the OM1. The LVEF was 30% with severe global hypokinesis. On 01/13/2024
her work of breathing increased, Lasix was administered as well as morphine and she was transferred to the ICU for further management and critical care services consulted for further recommendations.
When I saw the patient she was awake, on BiPAP 07/13 bled with 15 L/min saturating 94%. She was following commands and says she feels much better now with his mask on. She denies chest pain, headache, abdominal pain, fevers or chills. She says she
has been passing gas and her last bowel movement was 3 days ago. Patient's , Morgan, at bedside. I answered all of his questions. She does in fact remain full code, and if she worsens she is okay with being on a ventilator and if her heart
stops she is okay with CPR.
PMHx: CAD with history of stents, LBBB, paroxysmal A-fib, history of CVA, history of trigeminal neuralgia, JAN, hypertension, hypothyroidism, hyperlipidemia, DM type II, depression, history of ESBL�UTI, left shoulder replacement complicated by
septic shoulder, overactive bladder
PSHx: Cholecystectomy, hysterectomy, left hip surgery
Past Medical History
Past Medical History: Other (Above as per HPI)
Past Surgical History: Other (Above as per HPI)
Social History
Tobacco: Non-smoker
Alcohol: None
Drug: None
Personal:
Family History
Family History: Reviewed & Not Pertinent
Allergies / Home Medications
Allergies
Allergy/AdvReac Type Severity Reaction Status Date / Time
cephalexin Allergy Unknown Verified 01/02/24 13:57
ciprofloxacin Allergy Hives Verified 01/02/24 13:57
formaldehyde Allergy Shortness Verified 01/02/24 13:57
of Breath
Iodinated Contrast Media Allergy Hives Verified 01/02/24 13:57
metoprolol Allergy Itching Verified 01/02/24 13:57
Penicillins Allergy Unknown Verified 01/02/24 13:57
piperacillin [From Zosyn] Allergy Unknown Verified 01/02/24 13:57
pregabalin [From Lyrica] Allergy Hives Verified 01/02/24 13:57
shellfish derived Allergy Unknown Verified 01/02/24 13:57
Cqalwep-LVB-ZmZ Reductase Allergy Unknown Verified 01/02/24 13:57
Inhibitor
Sulfa (Sulfonamide Allergy Unknown Verified 01/02/24 13:57
Antibiotics)
tazobactam [From Zosyn] Allergy Unknown Verified 01/02/24 13:57
vancomycin Allergy Rash Verified 01/02/24 13:57
Home Medications
�Medication �Instructions �Recorded �Confirmed �Last Taken �Type
aspirin 81 mg tablet,delayed 81 mg PO DAILY Blood Clot 05/17/23 01/02/24 01/02/24 History
release Prevention/Tx
atorvastatin 40 mg tablet (Lipitor) 40 mg PO DAILY High Cholesterol 05/17/23 01/02/24 01/02/24 History
carvedilol 3.125 mg tablet (Coreg) 3.125 mg PO DAILY Heart Failure 05/17/23 01/02/24 01/02/24 History
divalproex 500 mg tablet,delayed 500 mg PO QPM Neurological 05/17/23 01/02/24 12/08/23 History
release Condition
duloxetine 60 mg capsule,delayed 60 mg PO DAILY Neurological 05/17/23 01/02/24 01/02/24 History
release (Cymbalta) Condition
folic acid 1 mg tablet 1 mg PO HS Supplement 05/17/23 01/02/24 12/07/23 History
levothyroxine 112 mcg tablet 112 mcg PO DAILY Thyroid 05/17/23 01/02/24 01/02/24 History
(Synthroid)
magnesium oxide 400 mg PO DAILY Supplement 05/17/23 01/02/24 01/02/24 History
mirtazapine 15 mg tablet 15 mg PO HS Mental Health/Anxiety 05/17/23 01/02/24 12/07/23 History
vitamin B complex 1 tab PO DAILY Supplement 05/17/23 01/02/24 01/02/24 History
nifedipine 30 mg tablet,extended 30 mg PO DAILY Blood pressure #30 05/22/23 01/02/24 01/02/24 Rx
release tabs
tolterodine 2 mg tablet 2 mg PO HS Urinary Issue 12/08/23 01/02/24 12/07/23 History
tramadol 50 mg tablet 50 mg PO BIDPRN PRN moderate pain 12/08/23 01/02/24 01/01/24 History
metformin 500 mg tablet 500 mg PO BID #60 tabs 12/12/23 01/02/24 01/02/24 Rx
sodium bicarbonate 650 mg tablet 650 mg PO BID #60 tabs 12/12/23 01/02/24 01/02/24 Rx
acetaminophen 500 mg tablet 1,000 mg PO Q6HPRN PRN MILD PAIN 01/02/24 01/02/24 01/01/24 History
(Tylenol Extra Strength)
Review of Systems
-
History Source: Patient
All other systems: Negative unless noted
Vitals / Labs / Diagnostic Testing
Vital Signs
Temp Pulse Resp BP Pulse Ox
98.3 F 111 17 159/91 93
01/13/24 11:30 01/13/24 11:30 01/13/24 11:30 01/13/24 11:30 01/13/24 11:30
Microbiology
01/07/24 06:42 Blood/Venous Blood Culture - Final
No Growth - Final Report
01/07/24 06:42 Blood/Venous Blood Culture - Final
No Growth - Final Report
Diagnostic Testing:
Physical Exam
-
HEENT: Normocephalic and Anicteric
Cardiovascular: S1/S2 and Peripheral Edema (Negative)
Respiratory: Wheeze (Negative), Rales (Bilaterally), Rhonchi (Negative) and Accessory Resp Muscle Use (Mild while on BiPAP via full face mask)
GI: Soft, Non Distended, Non Tender and Normal Bowel Sounds
Neurology: Awake and Alert
Skin: Warm and Dry
General: Respiratory Distress (Mild), Comfortable and Fever (Negative)
Assessment
-
78-year-old woman with multiple/complex medical history. Initially came with lower extremity edema. Diuresed on initial presentation. Subsequently developed acute kidney injury, hypotension and lower abdominal pain. Required vasopressors.
Evaluated for bowel ischemia, CT abdomen pelvis did not confirm this. Found to have shock liver, increased troponins, hypoxemia and transferred to the critical care unit for further evaluation and care. She had improved and was transferred out of
the unit, and is now returning due to acute respiratory distress requiring BiPAP due to acute hypoxic respiratory failure with volume overload.
Impression:
Acute respiratory failure with hypoxia due to acute HFrEF exacerbation with acute pulmonary edema
Suspected sepsis induced cardiomyopathy versus Takotsubo cardiomyopathy
Chronic anemia
Acute kidney injury superimposed on CKD (baseline creatinine approximately 0.9�1)
DM type II complicated by hyperglycemia
Lactic acidosis
Septic shock: UTI --> shock state now resolved
Urine culture with Klebsiella pneumonia ESBL (seen on UCx from 01/07/2024)
Increased troponin: Suspect type II MD vs ACS - peaked at 45.8 on 01/06/2024
Prior history of coronary artery disease with stents in the past. Multivessel coronary artery disease per family report
Shock liver suspected - improving
Abdominal pain: Was suspected to be due to UTI/ cystitis.
CT abdomen pelvis 01/05/2024: Moderate fecal material throughout the colon. Moderate diffuse bladder wall thickening. No other acute abnormality.
Conditions present prior admission:
Coronary artery disease with prior stents
Left bundle branch block
Paroxysmal atrial fibrillation
History of CVA
History of trigeminal neuralgia
Obstructive sleep apnea
Hypertension
Hypothyroidism
Hyperlipidemia
Type 2 diabetes
Depression
Prior UTI-ESBL
Left shoulder replacement complicated by septic shoulder
Subdural hematoma
Overactive bladder
Recurrent UTIs
Cholecystectomy
Hysterectomy
Left hip surgery
Assessment and plan:
Patient was already in the ICU and downgraded to tele on 01/09/2024. She was down to 1 L/min nasal cannula on 01/10/2024. She had a left heart cath on 01/11 showing severe MR with global hypokinesis and elevated LVEDP due to left-sided heart failure.
She is now having respiratory distress due to acute pulmonary edema, BiPAP was started. Continue BiPAP, keep strict n.p.o. with low threshold to intubate.
Check ABG
Titrate FiO2 and adjust IPAP + EPAP pressures to maintain SpO2 >90-94%
Avoid hypercapnea
-
Previously she was in septic shock from UTI/possibly
CT abdomen pelvis with bladder thickening-possible cystitis
Urine culture with Klebsiella ESBL
Continue antibiotics per infectious disease - currently on Ertapenem
She is on oral vancomycin twice a day as prophylaxis given her history of C. difficile
Lactic acid had cleared as of 01/07/2024 --> it has now increased again
Continue to trend lactate until <2mmol/L
-
Maintain MAP>65
Hold antihypertensive but need to be more aggressive with IV diuresis given she is in acute decompensated heart failure
Resume PO anti-hypertensives when clinically able to - currently she is NPO due to being on BiPAP
-
Shock liver:
AST was >4000, ALT was >3500 on 01/06/2024: Suspect ischemic injury.
Continue to trend LFTs
Patient is a s/p cholecystectomy in the past
-
Lower abdominal pain - abd pain now resolved: Evaluated for bowel ischemia but CT scan did not confirm
Less likely bowel ischemia as lactic acid cleared.
Continue with serial abdominal exam
Amylase and lipase are normal
Cannot rule out cardiac ischemic equivalent vs abdominal pain due to cystitis
Surgery has signed off
Currently NPO as on BiPAP - MILL FEEDER to eval her once she is off BiPAP and breathing comfortably
-
Hypoxemic respiratory failure due to acute decompensated heart failure/acute pulmonary edema with acute HFrEF exacerbation; Less likely pneumonia clinically. Subsegmental atelectasis also playing a role.
Was on 1 L nasal cannula up until earlier this AM --> then became suddenly SOB with CXR showing bilateral pleural effusions with acute pulmonary/interstitial edema, worse when compared to former CXR on 01/10/2024.
Also her gastric bubble is enlarged --> keep NPO, check AXR, she may need NGT for decompression.
Diurese to maintain net negative fluid balance as tolerated - aim for net (-) 1-1.5L per day over next 48-72 hrs - cardiology on board, defer diuresis to them
Encouraged incentive spirometry once she is off bipap
-
Lower extremity Dopplers on 01/07/2024 was negative for DVT
No need for VQ scan. Less likely thromboembolic event.
Acute lung injury from septic shock also with possibility.
-
Acute systolic cardiomyopathy - likely septic induced vs Takotsubo's cardiomyopathy
Echocardiogram repeated 01/07/2024 showed new decreased LVEF with motion wall abnormality, possible type II ischemia due to septic shock in the setting of multivessel coronary artery disease-Per family in the past patient not a candidate for coronary
artery bypass but has history of stents.
Left heart cath performed on 01/12/2024 showed nonobstructive CAD with CLOTH HAND of proximal RCA � no acute ischemic cause for sudden systolic dysfunction.
GDMT as per cardiology
Cardiology correspondence reviewed
-
Anemia:
Received 1 unit PRBC on 01/09/2024
No evidence for bleeding.
Continue to trend and transfuse to keep Hb >8 (given recent concern for NSTEMI), plt>20k
-
Acute kidney injury: Likely ATN.
Creatinine now at 1.3
Nephrology following the patient
Continue hemodynamic support
Trend BMP
-
Hyperglycemia:
ISS
Give NPH 12 units now, and start lantus 15 units HS
She may need insulin gtt
Goal BG 140-180mg/dL
-
Aspiration precautions
Head of the bed elevation
-
Continue ICU level care for this patient with severe respiratory distress with low threshold to intubate.
Critical care statement: A total of 40 minutes of critical care time was provided for this patient today. This includes management of unstable vital signs, evaluation of the patient at bedside, reviewing the patient's pertinent medical records
including radiographs, microbiology, laboratory evaluations, and discussion with primary team, consultants, pharmacy, nutrition, physical therapy, case management, charge nurse, critical care nursing, and respiratory therapy.
[2024-01-13 12:49] LABS: % Basophils 0.3 % (0-2); % Eosinophils 0.1 % (0-6); % Immature Granulocytes 0.7 % (0-0.5); % Lymphocytes 24.4 % (20.5-51.1); % Monocytes 6.1 % (1.7-9.3); % Neutrophils 68.4 % (42.2-75.2); Absolute Immature Granulocytes 0.1 10^3/uL (0-0.05); Absolute Lymphocytes 3.7 10^3/uL (1.2-3.4); Absolute Monocytes 0.9 10^3/uL (0.1-0.6); Absolute Neutrophils 10.5 10^3/uL (1.4-6.5); Hematocrit 34.5 % (37.0-47.0); Hemoglobin 10.9 g/dL (12.0-16.0); Mean Corp Hgb Conc. 31.6 g/dL (33.0-37.0); Mean Corpuscular Hgb 26.5 pg (27.0-31.0); Mean Corpuscular Volume 83.9 fL (81.0-99.0); Mean Platelet Volume 10.8 fL (7.4-10.4); Nucleated Red Blood Cells % 0 %; Platelet Count 337 10^3/uL (130-400); Red Blood Cell Count 4.11 10^6/uL (4.20-5.40); Red Cell Dist. Width 21.3 % (11.5-14.5); White Blood Cell Count 15.3 10^3/uL (4.8-10.8)
--- NOTE | 2024-01-13 12:50 | W.PN.HOSP.TC ---
Today's Communication/Plan
-
transfer to ICU
STAT blood work pending
BiPAP started
lasix given
morphine given
Assessment / Plan
Assessment / Plan
HPI: 78 y/o F with h/o PAF, CKD, cva, htn, hld, dm, anemia presented with b/l LE edema for two weeks. Her Lasix was discontinued while she was here last time due to kidney injury three weeks ago. Her primary care called her on Wednesday, asked her to
call nephrology for diuretics. She couldn't get hold off them. She started having pain. She took her 's hctz, thinking that would help. On arrival, she has b/l LE edema. BNP in 6999's. Received a dose of Lasix.
acute respiratory distress 01/13/24--rapid response called by myself--think flash pulm edema from rapid aflutter--STAT 1 mg IV morphine, STAT EKG, STAT CXR, to me looks like flash pulm edema waiting for official read--STAT CBC, CMP, troponin, lactic
acid, ABG--transfer to ICU
NSTEMI--h/o CAD/multivessel disease and was refused bypass surgery at that time due to several risk factors--Follow up Echo 01/03 noted Severely reduced left ventricular systolic function, EF 25-30%. Mild pulmonary hypertension. Compared to the prior
study earlier, EF is worsened--Trop peaked at 45.8 -> 24--Card following--cardiac cath 01/11 without obvious cause for drop in EF
AR on CKD stage 3--SCr 2.1 -> 1.0; from 1.0 (baseline)--IV Lasix restarted today by renal----Renal following
Shock (resolved) likely related to ischemic colitis vs septic (with ?UTI)--Shocked liver, resolving--Lactic acidosis, resolved (h/o Recurrent ESBL Klebsiella UTI)--s/p Bicarb drip per renal--Pt was upgraded to ICU 01/05, and pressor Levophed was
started on 01/05 and discontinued on 01/08--LFT improving although still very high--off Tylenol--Urine Cx from 01/06 grew ESBL Klebsiella--Cont ertapenem--Cont empiric PO vanco BID for h/o C diff colitis--ID following
BL LE peripheral edema POA, likely related to acute on chronic now systolic heart failure--BNP elevated at 7500--BL LE US neg for DVT--still hypoxic---Was on IV Lasix, then held due to worsening AR--DRIVING INSTRUCTOR Coreg and nifedipine DC'ed due to shock (see
below)--apprec cards--Follow up Echo 01/03 noted Severely reduced left ventricular systolic function, EF 25-30%. Mild pulmonary hypertension. Compared to the prior study earlier, EF is worsened--for cardiac cath today 01/11--getting US right arm
New onset diffuse abdominal pain, started overnight of 01/03. There was concern of ischemic colitis, which appears to be resolving--lactic acidosis has resolved--urgent CT AP with PO contrast was unrevealing, noted constipation--Pt was started with
Miralax BID, Senokot-S BID, Dulcolax PRN; adjust all bowel regimen to PRN--Cont empiric IV PPI BID--Low dose IV morphine PRN for pain--on low residue--apprec GI/surg
Hyperkalemia-- treated
New R lung infiltrate noted from 01/06--New acute hypoxic respiratory failure--high flow NC -> weaned to 1L NC (CXR 01/06 with new significant airspace disease within the right lung characterized by interstitial and patchy/more confluent airspace
opacity within the peripheral right midlung. Findings suspicious for pneumonia versus asymmetric pulmonary edema)--MRSA Screen neg--elevated d dimer noted, repeat LE US neg for DVT, VQ scan cancelled
Cont Ertapenem as above--apprec ID
anemia of chronic disease--Hgb at 7.1 on 01/08, transfused 1 unit PRBC, Hgb improved to 8.6--Iron studies, B12, folate levels reviewed and acceptable--Cont empiric Protonix 40 IV BID
Hypocalcemia--repleted
CAD status post stents/Paroxysmal atrial fibrillation per note--Continue aspirin--off Coreg--not on anticoagulation as outpt given frequent falls
Hypothyroidism--Continue levothyroxine
Hyperlipidemia--off statin
Type 2 diabetes--Holding metformin--Sliding scale
Essential hypertension--Off DRIVING INSTRUCTOR nifedipine/Coreg
Trigeminal neuralgia--Continue Depakote
Overactive bladder--On tolterodine at home
Chronic pain/fibromyalgia/depression--Continue duloxetine, mirtazapine
Cough following diet from initial presentation--pt seen by [facility], rec GI given pt's complaints of GERD without official dx or prescribed tx, as well as reported difficulty/coughing/choking with solids more than liquids.
GI felt chronic intermittent dysphagia could be related to esophagitis or presbyesophagus. Recommend Protonix 40mg daily. Can also check outpt EGD/colonoscopy for iron deficiency.
Clinical deconditioning due to shock--PT/OT rec SNF
code status --Full code
DVT prophylaxis� heparin SQ
Dispo: SNF per PT OT eval
Total Critical Care Time 60 minutes. I was immediately available to the patient and staff. I personally examined, reviewed labs, diagnostic images/reports, interpretations, treatment plans, discussed patient care with other providers and family
or caregivers (if patient is unable to make decisions), entered orders as appropriate and documented the medical record. Updated by phone.
Anticipated Discharge: > 48 hours
Subjective/Interval History
-
Date of Service: January 13, 2024
called to see patient for acute SOB and 'gurgling'
Objective Data
-
Labs:
Laboratory Results
01/13/24 01/13/24 01/13/24
06:03 12:00 12:30
WBC 9.2 Pending
Hgb 9.0 L Pending
Hct 27.6 L Pending
Plt Count 235 Pending
Sodium 136 Pending
Potassium 4.5 Pending
Chloride 101 Pending
Carbon Dioxide 27 Pending
BUN 35 H Pending
Creatinine 1.1 H Pending
Glucose 332 H 391 H Pending
Calcium 7.9 L Pending
Total Bilirubin Pending
AST Pending
ALT Pending
Alkaline Phosphatase Pending
Vital Signs:
max temp for 24 hours
01/12/24
22:30
Temp 99.0 F
Vital Signs
Temp Pulse Resp BP Pulse Ox
98.3 F 111 17 159/91 93
01/13/24 11:30 01/13/24 11:30 01/13/24 11:30 01/13/24 11:30 01/13/24 11:30
I&O
01/12/24 01/13/24 01/14/24
06:59 06:59 06:59
Intake Total 1195 / 1195 60 / 60
Output Total 1775 / 1775 1100 / 1100
Balance -580 / -580 -1040 / -1040
Review of Systems
-
Unable to obtain full review of systems at this time due to: Acuity
Physical Exam
-
General: Well Developed, Well Nourished and Respiratory Distress
HEENT: Normocephalic, Atraumatic and Oxygen
Respiratory: Crackles (gurgles)
Cardiac: Irregular Rhythm and Tachycardic
GI: Soft, Nontender, Nondistended and Normal Bowel Sounds
Musculoskeletal: No Clubbing and No Cyanosis
Neuro: Awake and Alert
[2024-01-13 13:07] LABS: ALT (SGPT) 682 U/L (0-35); AST (SGOT) 103 U/L (14-36); Albumin 3.3 g/dl (3.5-5.0); Alkaline Phosphatase 135 U/L (38-126); Blood Urea Nitrogen 34 mg/dl (7-17); Calcium 8.3 mg/dl (8.4-10.2); Carbon Dioxide 22 mmol/L (22-30); Chloride 101 mmol/L (98-107); Estimated Creatinine Clearance 31 ml/min; Glucose 421 mg/dl (70-99); Lactic Acid 5.1 mmol/L (0.7-2.0); Potassium 4.5 mmol/L (3.5-5.1); Sodium 137 mmol/L (135-145); Total Bilirubin 0.4 mg/dl (0.2-1.3); Total Protein 6.4 g/dl (6.3-8.2); eGFR 42.62
[2024-01-13 13:19] LABS: B.E. -1.7 mmol/L; HCO3 23.7 mmol/L (21-28); O2 Saturation % 99.6 % (94-98); PCO2 42 mmHg (32-35); PO2 154 mmHg (83-108); pH 7.36 (7.35-7.45)
--- NOTE | 2024-01-13 14:00 | PTCARENOTE ---
PT received S/P RR, Bipap 07/13 99%, B/L BS T/O coarse rhonchi, AAOx3, NSR +pulses no edema, abdomen soft NT + BS, Purewick in place, draining iva urine, right groin Cath access dressing removed, soft NT, right midline + blood return, right hand
INT and left AC INT flushed and patent, PT and family oriented to room policies and procedures
[2024-01-13 14:22] LABS: Glucose - Point of Care 337 mg/dl (70-99)
[2024-01-13] MEDS: NOVOLIN N vial 0.119999999999999996 UNITS SC (14:31)
--- NOTE | 2024-01-13 15:10 | W.PN.UPDATE ---
Update Note
Progress Note Update
-Patient transferred to ICU with respiratory distress and A-fib with RVR.
-Patient now appears to be calm and is back in sinus rhythm after being given intravenous morphine.
-Continue surveillance monitor.
-Will follow.
[2024-01-13] MEDS: DEPAKOTE (12 HR RELEASE) 500 MG PO (17:00)
[2024-01-13] MEDS: NOVOLOG FLEXPEN-MODERATE RESISTANCE 5 UNITS SC (17:00)
[2024-01-13 17:07] LABS: Glucose - Point of Care 253 mg/dl (70-99)
[2024-01-13] MEDS: ZOFRAN 4 MG IV (17:37)
--- NOTE | 2024-01-13 17:51 | PTCARENOTE ---
Received notification from Dr Horton, PT has a nonocclusive clot in the right arm, VAT team notified for removal, PT ordered Trop and Lactic acid, unable obtain samples, notified Phlebotomy, who will come up to stick PT, PT c/o nausea, abdominal
pain, and headache, Zofran given as ordered, Morphine given as ordered, PT appears comfortable resting comfortable, left shoulder had been replaced, however got severely infected and the hardware was removed, creating 'flail arm', upon inspection
there appears to be a thread in the arm, notified Corey Hernandez ROUNDING MACHINE TENDER, who will come and evaluate
[2024-01-13 18:15] LABS: Glucose - Point of Care 194 mg/dl (70-99)
[2024-01-13 18:54] LABS: Lactic Acid 3.3 mmol/L (0.7-2.0)
--- NOTE | 2024-01-13 20:00 | PTCARENOTE ---
Received patient AAOx4, following commands, received morphine around 1800 for pain. Patient reports it helped, now a 5/10 and will try simethicone for gas pain. Moves all extremities, x2 assist, generalized weakness. Normal sinus, 70s, normothermic,
BP stable. Palpable pulses, trace generalized anasarca. On Bipap, 12/5, 10 liters, saturating 100%. Lung sounds diminished throughout. Abdomen soft, round, obese. Positive bowel sounds. Purewick in place, draining yellow, iva urine. Fresh purewick
applied. Left arm small skin tear. Foam on sacrum and heels for protection. Son and daughter at bedside, updated and emotional support provided. Call estrada within reach.
[2024-01-13] MEDS: MAGNESIUM SULFATE 102 GRAMS IV (20:29)
[2024-01-13] MEDS: INVANZ 60 MG IV (21:44)
[2024-01-13] MEDS: MYLICON 80 MG PO (21:44)
[2024-01-13] MEDS: FOLVITE 1 MG PO (21:44)
[2024-01-13] MEDS: REMERON 15 MG PO (21:44)
[2024-01-13] MEDS: LANTUS 0.149999999999999994 UNITS SC (21:44)
[2024-01-14] VITALS (25 sets, daily range): BP systolic 85–139; BP diastolic 45–78; PULSE 2–83; O2SAT 97; BMI 27.6
--- NOTE | 2024-01-14 00:12 | PTCARENOTE ---
Patient assessment unchanged from previous, mouth care done, repositioned. Call estrada within reach.
[2024-01-14 00:31] LABS: Glucose - Point of Care 89 mg/dl (70-99)
[2024-01-14] MEDS: NOVOLOG FLEXPEN-HIGH RESISTANCE 1 UNITS SC (00:33)
[2024-01-14] MEDS: FIRVANQ 125 MG PO ×3 (00:58→22:04)
--- NOTE | 2024-01-14 03:42 | PTCARENOTE ---
Patient assessment unchanged from previous, sleeping comfortably. Call estrada within reach.
[2024-01-14 06:29] LABS: Glucose - Point of Care 44 mg/dl (70-99)
[2024-01-14] MEDS: DEXTROSE 50% SYRINGE 12.5 GRAMS IV (06:30)
[2024-01-14] MEDS: NOVOLOG FLEXPEN-HIGH RESISTANCE SC (06:33)
[2024-01-14] MEDS: SYNTHROID 112 MCG PO (06:47)
[2024-01-14 06:59] LABS: Glucose - Point of Care 83 mg/dl (70-99)
[2024-01-14 07:55] LABS: Glucose - Point of Care 77 mg/dl (70-99)
--- NOTE | 2024-01-14 08:28 | W.PN.CD ---
Today's Communication / Plan
-
increase coreg to 6.25mg bid
start PO amiodarone load
EKG in AM
continue IV lasix, with nephrology consulted
Impression / Plan
-
Admitted 01/02/2024 with chief complaint of edema. Complex hospitalization with hypotension, shock, and abdominal pain. During this admission she has had an TX that is likely a Type II TX.
Improved resp insuf/hypotension/shock liver
-currently on BiPAP
Abdominal pain, not felt to be ischemic bowl
HFrEF, acute
- continue lasix 40mg IV bid, with close monitoring of labs with baseline CKD3a and AR on admission: nephrology consulted
Cardiomyopathy: new decline in LVEF, seems NICM, with no acute change in coronary anatomy (see below for cath 01/11, med mgmt)--could be sepsis induced vs Takutsubo variant
- LVEF 01/04/2024: Normal
- LVEF 01/07/2024: 25-30% with extensive anterior, lateral, and apical wall motion changes (Echo IV contrast); no sig valve disease noted
- metoprolol allergy listed: seems to be tolerating coreg
-increase coreg to 6.25mg bid
-other GDMT limited by AR, renal function: to re-assess as she recovers
-to repeat echo inpatient vs outpatient based on clinical course
Paroxysmal Afib, with recurrence of A fib with RVR this admission
-not on OAC as outpatient due to frequent falls, high bleeding risk
-back in sinus with IVCD noted on EKG (QT also prolonged, but in setting of IVCD)
-cont coreg
-load with PO amiodarone to keep in SR during period of critical illness
-repeat EKG in AM
-400mg bid for 2 weeks (through 01/27), then 200mg daily
-then can plan to stop as outpatient, perhaps in 6-8 weeks
Type II TX
- Never had chest pain. EKG has new loss of anterior R waves and echo with impressive new wall motion changes
- Peak troponin 45.8 on 01/06/2024 (first troponin drawn during hospital stay)
- cath 01/11 does not show acute change in coronary anatomy
-ASA 81mg daily
-records indicate statin intolerance
Known complex CAD and in past was not a CABG candidate
- Records from [facility]/Dr Mejia 04/06/2023 reviewed
- Last cath seems to have been an Impella supported Left Main PCI with a HEMAL (4x12 Promus) in 08/2019
- Cath 08/2019: 50-60 LM, 80 LAD, 80 Ramus, 100 RCA
- cath this admit 01/11 without acute ischemic disease . LM stent patent. 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
-ASA 81mg daily
ID -
- ID consult following
- UTI - RSBL
- BC negative ( note that first blood cultures on transfer to ICU were after abx
Improved AR on CKD. From 2.3-1.0
Acute anemia, not felt to be GI blood loss
- 1 unit PRBC on 01/07/2024
- Improving continue to monitor
Prior CVA
HTN
DM, type II
PAD, prior intervention
CARDIAC CATH 01/12/24
CONCLUSIONS
1. Right dominant circulation with chronic total occlusion of the proximal RCA (with collaterals from LAD); densely calcified 30% lesion in the proximal LAD, a long 30% lesion in the mid vessel and diffuse disease of the second diagonal which
parallels the LAD and supplies the apex but is too small for intervention, a small to medium size ramus that is diffusely diseased and not amenable to intervention and a 40% lesion in the origin of OM1.
2. Dilated left ventricle with severe global hypokinesis, perhaps worse in the apex with severe LV systolic dysfunction, LV ejection fraction 30%.
3. Severe mitral valve regurgitation.
4. Severely elevated filling pressures (LVEDP = 30 mmHg at 64.0 kg) with severe diastolic dysfunction (A wave to 45 mmHg).
5. No acute ischemic cause for sudden systolic dysfunction. Considerations include sepsis induced LV dysfunction versus Takotsubo variant versus postviral myocarditis (no history of URI, less likely).
Subjective:
Feels better. . No CP or dyspnea
CCT 35 minutes.
Physical Exam
Vital Signs/Labs
Vital Signs
Temp Pulse Resp BP Pulse Ox
97.4 F 61 12 113/49 96
01/14/24 07:23 01/14/24 07:00 01/14/24 07:00 01/14/24 07:00 01/14/24 06:00
01/13/24 01/14/24 01/15/24
06:59 06:59 06:59
Actual Weight 63.56 kg 66.2 kg
PT 19.7 Sec (11.4-14.6) H 01/07/24 04:17
INR 1.69 01/07/24 04:17
APTT 35.9 Sec (23.4-35.0) H 01/07/24 04:17
Magnesium 1.5 mg/dl (1.6-2.3) L 01/12/24 04:33
01/02/24 01/12/24
15:25 04:33
Qod-J-Fltllkozhzu Pept 7590 > 71657
LAB Results
01/13/24 01/13/24
12:30 18:32
Troponin I 1.310 H* 1.990 H* D
Physical Exam
Constitutional: Other (increased WOB)
EENT: Moist mucous membranes
Cardiovascular: Rhythm & rate is regular, Pedal edema is absent, JVD present and Systolic murmur present
Respiratory: Labored respirations
GI: Soft and Distention absent
Neuro/Psych: Other (arousable)
Data Reviewed
-
Date of Service: January 14, 2024
EKG: Other (Tele: SR, PAC's)
Echo: Report Reviewed by me
Labs: Labs Reviewed by me
--- NOTE | 2024-01-14 08:30 | W.PN.INTV ---
Today's Communication / Plan
Recommendations
Antibiotics per ID
Aggressive diuresis
Cardiology on board � recommendations appreciated
Blood glucose markedly improved � continue basal insulin with ISS moderate resistance
Given RUE DVT, start therapeutic AC with NOAC. Continue fall precautions with PT/OT evaluation. They had previously recommended skilled rehab. Ideally, she should obtain repeat RUE ultrasound in 4-6 weeks to assess if DVT still present and if
resolved at that time then could remove her from anticoagulation as an outpatient.
Patient stable for transfer out of ICU to IMU. Pulmonary service will continue to briefly follow along.
Assessment
-
78-year-old woman with multiple/complex medical history. Initially came with lower extremity edema. Diuresed on initial presentation. Subsequently developed acute kidney injury, hypotension and lower abdominal pain. Required vasopressors.
Evaluated for bowel ischemia, CT abdomen pelvis did not confirm this. Found to have shock liver, increased troponins, hypoxemia and transferred to the critical care unit for further evaluation and care. She had improved and was transferred out of
the unit, and is now returning due to acute respiratory distress requiring BiPAP due to acute hypoxic respiratory failure with volume overload.
Impression:
Acute respiratory failure with hypoxia due to acute HFrEF exacerbation/severe MR with acute pulmonary edema + pleural effusions requiring BiPAP --> now weaned to nasal cannula and breathing comfortably
Suspected sepsis-induced cardiomyopathy versus Takotsubo cardiomyopathy
Chronic anemia
Valvular heart disease with severe mitral regurgitation
Acute kidney injury superimposed on CKD (baseline creatinine approximately 0.9�1)
RUE DVT - likely related to recent midline (midline placed into R-basilic vein on 01/06/2024 - removed on 01/13/2024)
DM type II complicated by hyperglycemia --> glucose now normalized
Lactic acidosis
Septic shock: UTI --> shock state now resolved
Urine culture with Klebsiella pneumonia ESBL (seen on UCx from 01/07/2024)
Increased troponin: Suspect type II MO vs ACS - peaked at 45.8 on 01/06/2024 --> now re-checked on 01/13/2024, and is still elevated at 1.31 --> 1.99
Prior history of coronary artery disease with stents in the past. Multivessel coronary artery disease per family report
Shock liver suspected - improving
Abdominal pain: Was suspected to be due to UTI/ cystitis - abd pain now resolved
CT abdomen pelvis 01/05/2024: Moderate fecal material throughout the colon. Moderate diffuse bladder wall thickening. No other acute abnormality.
Conditions present prior admission:
Coronary artery disease with prior stents
Left bundle branch block
Paroxysmal atrial fibrillation
History of CVA
History of trigeminal neuralgia
Obstructive sleep apnea
Hypertension
Hypothyroidism
Hyperlipidemia
Type 2 diabetes
Depression
Prior UTI-ESBL
Left shoulder replacement complicated by septic shoulder
Subdural hematoma
Overactive bladder
Recurrent UTIs
Cholecystectomy
Hysterectomy
Left hip surgery
Assessment and plan:
Patient was already in the ICU and downgraded to tele on 01/09/2024. She was down to 1 L/min nasal cannula on 01/10/2024. She had a left heart cath on 01/11 showing severe MR with global hypokinesis and elevated LVEDP due to left-sided heart failure.
On 01/12 she developed acute respiratory distress due to acute pulmonary edema, BiPAP was started and she was diuresed - she has been net (-)800cc last 24 hrs.
Continue with diuresis with prn BiPAP
I believe we are out of the danger zone of her being intubated
Maintain SpO2 >90-94%
Avoid hypercapnea
Inadequate IV access:
I looked at her LUE and RUE myself with the US --> she has a RUE brachial thrombus that extends to her RUE basilic vein. Unfortunately this RUE should not be used for now, and she should be started on AC with either heparin gtt or NOAC. Considering
that she is volume overloaded, and with an AR, I favor starting her on an NOAC with Eliquis. She is suspected to be a fall risk, however, so we will start Eliquis 5 mg BID for now, and have PT/OT see her. We may need to stop AC before discharge,
after a risk vs benefit discussion with the patient. Pt previusly was seen by PT on 01/11/2024 and the rec'd skilled rehab at that time
Fall precautions
IV team consulted, and I spoke to them personally. Would ideally get a LUE PICC line to allow ease of blood draws as well as access for IV medications/ABx. A midline would be the least required IV line.
-
Previously she was in septic shock from UTI/possibly
CT abdomen pelvis with bladder thickening-possible cystitis
Urine culture with Klebsiella ESBL
Continue antibiotics per infectious disease - currently on Ertapenem
She is on oral vancomycin twice a day as prophylaxis given her history of C. difficile
Lactic acid had cleared as of 01/07/2024 --> it has now increased again
Continue to trend lactate until <2mmol/L
-
Maintain MAP>65
Ok to resume antihypertensive and continue aggressive IV diuresis given she is in acute decompensated heart failure with bilateral pleural effusions and acute pulmonary edema
Diet as per PONY RIDE OPERATOR - pt passed this today
-
Shock liver:
AST was >4000, ALT was >3500 on 01/06/2024: Suspect ischemic injury.
Continue to trend LFTs
Patient is a s/p cholecystectomy in the past
-
Lower abdominal pain - abd pain now resolved: Evaluated for bowel ischemia but CT scan did not confirm
Less likely bowel ischemia as lactic acid cleared.
Continue with serial abdominal exam
Amylase and lipase were normal
Cannot rule out cardiac ischemic equivalent vs abdominal pain due to cystitis
Surgery has signed off
Passed PONY RIDE OPERATOR eval on 01/14/2024
-
Hypoxemic respiratory failure due to acute decompensated heart failure/acute pulmonary edema with acute HFrEF exacerbation; Less likely pneumonia clinically. Subsegmental atelectasis also playing a role.
Was on 1 L nasal cannula up until earlier on AM of 01/12 --> then became suddenly SOB with CXR showing bilateral pleural effusions with acute pulmonary/interstitial edema, worse when compared to former CXR on 01/10/2024.
Also her gastric bubble is enlarged but no SBO seen on AXR.
Diurese to maintain net negative fluid balance as tolerated - aim for net (-) 1-1.5L per day over next 24-48 hrs - cardiology on board, defer diuresis to them
Encouraged incentive spirometry once she is off bipap
-
Lower extremity Dopplers on 01/07/2024 was negative for DVT
No need for VQ scan. Less likely thromboembolic event.
Acute lung injury from septic shock also with possibility.
-
Acute systolic cardiomyopathy - likely septic induced vs Takotsubo's cardiomyopathy
Echocardiogram repeated 01/07/2024 showed new decreased LVEF with motion wall abnormality, possible type II ischemia due to septic shock in the setting of multivessel coronary artery disease-Per family in the past patient not a candidate for coronary
artery bypass but has history of stents.
Left heart cath performed on 01/12/2024 showed nonobstructive CAD with GAS UTILITY WORKER of proximal RCA � no acute ischemic cause for sudden systolic dysfunction.
GDMT as per cardiology
Cardiology correspondence reviewed
Troponin initially elevated earlier in her hospitalization which peaked at 45.8 on 01/05; it was then rechecked on 01/12 and has been trending up to continue to monitor until begins to downtrend
-
Anemia:
Received 1 unit PRBC on 01/09/2024
No evidence for bleeding.
Continue to trend and transfuse to keep Hb >8 (given recent concern for NSTEMI), plt>20k
Starting systemic AC tonight for RUE DVT
-
Acute kidney injury: Likely ATN.
Creatinine now at 1.2
Nephrology following the patient
Continue hemodynamic support
Trend BMP
-
Hyperglycemia:
ISS
Continue lantus HS with ISS moderate resistance
Goal BG 140-180mg/dL
-
Aspiration precautions
Head of the bed elevation
She has a RUE DVT --> she will need AC after we obtain IV access. Kamaljit to start tonight with 10mg BID x 7 days, tehn 5mg BID after that. She should get repeat RUE US in 4-6 weeks to assess if DVT still present, and if not then she could be
removed from AC at that time. PICC team consulted for LUE PICC vs Midline. Of note, her Abx will end tomorrow. PT had previously rec'd skilled rehab. We would need PT/OT to re-eval her to see if she still needs skilled rehab and to assess her
fall risk now that she is on AC.
-
Patient is stable for transfer out of ICU to IMU. Pulmonary service will continue to briefly follow along.
Total time spent today was 75 minutes for this encounter. Time includes reviewing laboratory test/imaging results, reviewing pertinent medical records, obtaining and reviewing medical history, performing an appropriate exam, ordering medications,
tests and procedures. Time also includes documentation of this encounter, coordinating patient care and communicating with other healthcare professionals. Total time does not include separately billed tests performed on this date of service.
Subjective Dataa
Subjective Data
Date of Service:
Date of Service: January 14, 2024
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
Subjective:
Patient seen and evaluated this morning. She is doing well on 4 L/min nasal cannula. She says she feels much better today. She denies chest pain, headache, abdominal pain, fevers or chills. She wore the BiPAP overnight on 07/13.
Review of Systems
General: Other (negative unless mentioned above)
Objective Data
Data Reviewed
Vital Signs / I&O / Oxygen:
Vital Signs
Temp Pulse Resp BP Pulse Ox
97.4 F 61 12 124/47 96
01/14/24 07:23 01/14/24 07:00 01/14/24 07:00 01/14/24 09:04 01/14/24 06:00
Intake and Output
01/13/24 01/14/24 01/15/24
06:59 06:59 06:59
Intake Total 60 / 60 150 / 150
Output Total 1100 / 1100 950 / 950
Balance -1040 / -1040 -800 / -800
SaO2 96
Nasal Cannula flow liters per 2
minute
Physical Exam
General: Respiratory Distress (n), Comfortable and Good Appetite
HEENT: Normocephalic and Anicteric
Cardiovascular: S1-S2 and Peripheral Edema (negative)
Respiratory: Wheeze (negative), Crackles (bialterally), Rhonchi (negative) and Non-Labored Respirations
GI: Soft, Non Distended, Non Tender and Normal Bowel Sounds
Neurology: Awake and Alert
Skin: Warm, Dry and Jaundice (negative)
Labs/Micro/Reports
Laboratory Results
01/13/24
13:12
pH 7.36
pCO2 42 H
pO2 154 H
HCO3 23.7
O2 Delivery Level
Microbiology
01/07/24 06:42 Blood/Venous Blood Culture - Final
No Growth - Final Report
01/07/24 06:42 Blood/Venous Blood Culture - Final
No Growth - Final Report
--- NOTE | 2024-01-14 08:55 | W.PN.HOSP.TC ---
Today's Communication/Plan
-
defer to pulm IV access
PT/OT/speech
rate control per cards--apprec input
Assessment / Plan
Assessment / Plan
HPI: 78 y/o F with h/o PAF, CKD, cva, htn, hld, dm, anemia presented with b/l LE edema for two weeks. Her Lasix was discontinued while she was here last time due to kidney injury three weeks ago. Her primary care called her on Wednesday, asked her to
call nephrology for diuretics. She couldn't get hold off them. She started having pain. She took her 's hctz, thinking that would help. On arrival, she has b/l LE edema. BNP in 6999's. Received a dose of Lasix.
acute respiratory distress 01/13/24--rapid response called by Dr. Horton--think flash pulm edema from rapid aflutter--transferred to ICU 01/12--placed on BiPAP--much improved--remove BiPAP and transition back to O2
acute DVT right arm--midline removed but now no IV access--clot propagates into right IJ but is nonocclusive--will defer IV access to obstetrician gynecologist
NSTEMI--h/o CAD/multivessel disease and was refused bypass surgery at that time due to several risk factors--Follow up Echo 01/03 noted Severely reduced left ventricular systolic function, EF 25-30%. Mild pulmonary hypertension. Compared to the prior
study earlier, EF is worsened--Trop peaked at 45.8 to 24--apprec Card--cardiac cath 01/11 without obvious cause for drop in EF
AR on CKD stage 3--SCr 2.1 -> 1.0; from 1.0 (baseline)--IV Lasix restarted 01/12 by renal----apprec Renal
Shock ( with shock liver and lactic acidosis resolved) likely related to ischemic colitis--(h/o Recurrent ESBL Klebsiella UTI)--s/p Bicarb drip per renal--Pt was upgraded to ICU 01/05, and pressor Levophed was started on 01/05 and discontinued on
01/08---off Tylenol--Urine Cx from 01/06 grew ESBL Klebsiella--Cont ertapenem--Cont empiric PO vanco BID for h/o C diff colitis--ID following
acute on chronic (now) systolic heart failure--BNP elevated--BL LE US neg for DVT--still hypoxic---Was on IV Lasix, then held due to worsening AR--SUPERVISOR HEAT TREATING Coreg and nifedipine DC'ed due to shock--apprec cards--Follow up Echo 01/03 noted Severely reduced
left ventricular systolic function, EF 25-30%. Mild pulmonary hypertension. Compared to the prior study earlier, EF is worsened--s/p cardiac cath today 01/12
New onset diffuse abdominal pain, started overnight of 01/03. There was concern of ischemic colitis, which appears to be resolving--CT AP with PO contrast was unrevealing, noted constipation--Pt was started with Miralax BID, Senokot-S BID, Dulcolax
PRN; adjust all bowel regimen to PRN--Cont empiric IV PPI BID--Low dose IV morphine PRN for pain--on low residue--apprec GI/surg
Hyperkalemia-- treated
New R lung infiltrate noted from 01/06--New acute hypoxic respiratory failure--high flow NC -> weaned to 1L NC (CXR 01/06 with new significant airspace disease within the right lung characterized by interstitial and patchy/more confluent airspace
opacity within the peripheral right midlung. Findings suspicious for pneumonia versus asymmetric pulmonary edema)--MRSA Screen neg--elevated d dimer noted, repeat LE US neg for DVT, VQ scan cancelled
Cont Ertapenem as above--apprec ID
anemia of chronic disease--Hgb at 7.1 on 01/08, transfused 1 unit PRBC, Hgb improved to 10.9 on 01/13/24--Iron studies, B12, folate levels reviewed and acceptable--Cont empiric Protonix 40 IV BID
Hypocalcemia--repleted
CAD status post stents/Paroxysmal atrial fibrillation per note--Continue aspirin--off Coreg--not on anticoagulation as outpt given frequent falls
Hypothyroidism--Continue levothyroxine
Hyperlipidemia--off statin
Type 2 diabetes--Holding metformin--Sliding scale
Essential hypertension--Off SUPERVISOR HEAT TREATING nifedipine/Coreg
Trigeminal neuralgia--Continue Depakote
Overactive bladder--On tolterodine at home
Chronic pain/fibromyalgia/depression--Continue duloxetine, mirtazapine
Cough following diet from initial presentation--pt seen by [facility], rec GI given pt's complaints of GERD without official dx or prescribed tx, as well as reported difficulty/coughing/choking with solids more than liquids.
GI felt chronic intermittent dysphagia could be related to esophagitis or presbyesophagus. Recommend Protonix 40mg daily. Can also check outpt EGD/colonoscopy for iron deficiency.
Clinical deconditioning due to shock--PT/OT rec SNF
code status --Full code
DVT prophylaxis� heparin SQ
Dispo: SNF per PT OT eval
Total Critical Care Time 32 minutes. I was immediately available to the patient and staff. I personally examined, reviewed labs, diagnostic images/reports, interpretations, treatment plans, discussed patient care with other providers and family
or caregivers (if patient is unable to make decisions), entered orders as appropriate and documented the medical record.
Anticipated Discharge: > 48 hours
Subjective/Interval History
-
Date of Service: January 14, 2024
pt feeling better--no IV access however as line had to be removed due to DVT in arm
Objective Data
-
Labs:
Laboratory Results
01/14/24 01/14/24
06:00 08:30
WBC Pending
Hgb Pending
Hct Pending
Plt Count Pending
Sodium Pending
Potassium Pending
Chloride Pending
Carbon Dioxide Pending
BUN Pending
Creatinine Pending
Glucose Pending
Calcium Pending
Total Bilirubin Pending
AST Pending
ALT Pending
Alkaline Phosphatase Pending
Vital Signs:
max temp for 24 hours
01/13/24
23:12
Temp 98.6 F
Vital Signs
Temp Pulse Resp BP Pulse Ox
97.4 F 61 12 113/49 96
01/14/24 07:23 01/14/24 07:00 01/14/24 07:00 01/14/24 07:00 01/14/24 06:00
I&O
01/13/24 01/14/24 01/15/24
06:59 06:59 06:59
Intake Total 60 / 60 150 / 150
Output Total 1100 / 1100 950 / 950
Balance -1040 / -1040 -800 / -800
Review of Systems
-
All other systems: Reviewed and negative
Physical Exam
-
General: Well Developed, Well Nourished and No Apparent Distress
HEENT: Normocephalic, Atraumatic and Other (BiPAP)
Respiratory: Clear to Auscultation; Negative Wheezes or Rhonchi
Cardiac: Irregular Rhythm
GI: Soft, Nontender, Nondistended and Normal Bowel Sounds
Musculoskeletal: No Clubbing, No Cyanosis and Edema, Right Upper Extrem
Neuro: Awake and Alert
Psych: Calm
--- NOTE | 2024-01-14 08:59 | CM ---
Patient seen at bedside in ICU with physician. Patient awake and responded, saying she was ok. Patient will need updated PT/OT assessment when medically appropriate. Patient was accepted to [facility] pending bed availability previously. When
closer to discharge will need to send updated clinicals. CM will continue to follow for discharge planning needs.
Plan; SNF pending medical treatment plan
[2024-01-14] MEDS: HEPARIN 5000 UNITS SC (09:03)
[2024-01-14] MEDS: LASIX 40 MG IV ×2 (09:03→15:46)
[2024-01-14] MEDS: B COMPLEX w/VITAMIN C 1 CAPLET PO (09:03)
[2024-01-14] MEDS: ASPIR LOW (ENTERIC COATED) 81 MG PO (09:03)
[2024-01-14] MEDS: CYMBALTA DELAYED RELEASE 60 MG PO (09:03)
[2024-01-14] MEDS: PACERONE 400 MG PO ×2 (09:04→20:13)
[2024-01-14] MEDS: PROTONIX 40 MG PO (09:04)
[2024-01-14] MEDS: COREG 6.25 MG PO ×2 (09:04→20:12)
[2024-01-14] MEDS: MIRALAX 17 GRAMS PO (09:05)
[2024-01-14 09:21] LABS: ALT (SGPT) 531 U/L (0-35); AST (SGOT) 83 U/L (14-36); Albumin 2.8 g/dl (3.5-5.0); Alkaline Phosphatase 71 U/L (38-126); Blood Urea Nitrogen 37 mg/dl (7-17); Calcium 8.3 mg/dl (8.4-10.2); Carbon Dioxide 27 mmol/L (22-30); Chloride 102 mmol/L (98-107); Direct Bilirubin 0.5 mg/dl (0.0-0.4); Estimated Creatinine Clearance 35 ml/min; Glucose 73 mg/dl (70-99); Magnesium 1.9 mg/dl (1.6-2.3); Phosphorus 4.3 mg/dl (2.5-4.5); Potassium 4.2 mmol/L (3.5-5.1); Sodium 138 mmol/L (135-145); Total Bilirubin 0.5 mg/dl (0.2-1.3); Total Protein 5.8 g/dl (6.3-8.2); eGFR 46.91
--- NOTE | 2024-01-14 10:06 | W.PN.NEPH.PH ---
Today's Communication / Plan
-
cont diuresis
Assessment/Plan
-
Impression:
Acute kidney injury
Baseline CKD3a (1.1)
History of recurrent UTI (ESBL)
Coronary artery disease with previous stenting procedure
Paroxysmal atrial fibrillation
History of CVA
Hypothyroidism
Diabetes mellitus type II
History of subdural hematoma
Trigeminal neuralgia
Multiple left shoulder surgeries with septic left shoulder hardware removal
Bladder dysfunction
Chronic pain/ fibromyalgia
Depression
Restless leg syndrome
Anemia
Hyperkalemia
Metabolic acidosis
Elevated LFTs
Abdominal pain
Plan:
noted events afib and flash pulm edema on 01/12
now in sinus, cards follows
cont diuresis, wt is up today likely not accurate
stable renal function
L acid improving
wean O2 as tolerated
AC for R UE DVT
follow BMP
d/w nursing
-
-
Date of Service: January 14, 2024
CC / HPI / ROS
-
Chief Complaint:
AR
History of Present Illness:
BP stable , Afib - in sinus
Cr stable at 1.2,
wt is up but different bed scale
LFTs -improving
s/p cardiac cath 01/11-high pressures/decompensated HF
Review of Systems:
on NC 4lit
pt denies sob or sp at rest
no fever
Labs
-
Labs:
Sodium 138 mmol/L (135-145) 01/14/24 08:30
Potassium 4.2 mmol/L (3.5-5.1) 01/14/24 08:30
Chloride 102 mmol/L (98-107) 01/14/24 08:30
Carbon Dioxide 27 mmol/L (22-30) 01/14/24 08:30
BUN 37 mg/dl (7-17) H 01/14/24 08:30
Creatinine 1.2 mg/dL (0.6-1.0) H 01/14/24 08:30
eGFR 46.91 01/14/24 08:30
Glucose 73 mg/dl (70-99) 01/14/24 08:30
Calcium 8.3 mg/dl (8.4-10.2) L 01/14/24 08:30
Phosphorus 4.3 mg/dl (2.5-4.5) 01/14/24 08:30
Albumin 2.8 g/dl (3.5-5.0) L 01/14/24 08:30
Physical Exam
-
Vital Signs:
Vital Signs
Temp Pulse Resp BP Pulse Ox
97.4 F 61 12 124/47 96
01/14/24 07:23 01/14/24 07:00 01/14/24 07:00 01/14/24 09:04 01/14/24 06:00
Cardiovascular:: Regular rate and rhythm
Lung Excursion:: Normal (decreased)
Abdomen:: Nontender and Soft
Extremity Edema:: +2: Bilateral:
[place] Catheter: No
[2024-01-14] MEDS: COREG PO (10:44)
--- NOTE | 2024-01-14 10:49 | PTCARENOTE ---
received pt this am on bipap. pt reports feeling 'much improved'. dr brice in to see pt this am and approved switching to nasal cannula and starting a diet. Dr Brice aware that multiple attempts were made to draw labs and only bmp was
able to be sent. Dr Talley is currently attempting IV with ultrasound guidance. Difficulty obtaining sats peripherally, only able to get pulse ox on ear since coming off bipap. Sats 98-100 on 4lnc. Otherwise please refer to assessment.
--- NOTE | 2024-01-14 10:55 | W.PN.ID1 ---
Date of Service
Date of Service: January 14, 2024
Today's Communication
- Continue ertapenem day
Assessment / Plan
UTI due to ESBL-Ecoli, colonization with ESBL
Shock Liver - resolving
Reported history of C difficile
Numerous Stated Drug Intolerances/allergies
- blood cultures x2 finalized negative
- Urine culture 100K ESBL K pneumoniae
- Continue ertapenem day
Diarrhea
H/o C difficile
- only abdominal pain at this time is suprapubic, stool is nonbloody, leukocytosis has resolved; was recently on scheduled senna and miralax and was known to have some constipation - would not pursue further workup at this moment
- agree with holding cathartics
- benefits of protonix outweigh risks
- continue oral vancomycin BID ppx while on broad spectrum rx and for 5 days after
- s/p cardiac cath with steroid premedication
����������������������������������������������������������
Chief Complaint
-: UTI
Subjective / Review of Systems
Respiratory distress after cardiac procedure ->transferred to IMU.
Today, pt reports she feels much improved.
Vital Signs / Physical Exam
Vital Signs
Vital Signs
Temp Pulse Resp BP Pulse Ox
97.4 F 66 13 136/72 96
01/14/24 07:23 01/14/24 10:00 01/14/24 10:00 01/14/24 10:00 01/14/24 06:00
Physical Exam
Constitutional: No Acute Distress and Comfortable
Gastrointestinal: Soft, Non Tender, Non Distended and Normal Bowel Sounds
Genito-Urinary: Negative CVA Tenderness
Neurological: AO x 3
Objective Data
Lab Data
Lab Results
01/14/24 08:30
PT 19.7 Sec (11.4-14.6) H 01/07/24 04:17
INR 1.69 01/07/24 04:17
APTT 35.9 Sec (23.4-35.0) H 01/07/24 04:17
Estimated Creat Clear 35 ml/min 01/14/24 08:30
Lactic Acid 3.3 mmol/L (0.7-2.0) H 01/13/24 18:32
Total Bilirubin 0.5 mg/dl (0.2-1.3) 01/14/24 08:30
AST 83 U/L (14-36) H 01/14/24 08:30
ALT 531 U/L (0-35) H* 01/14/24 08:30
Alkaline Phosphatase 71 U/L (38-126) 01/14/24 08:30
Amylase 55 U/L (30-110) 01/06/24 21:05
Most recent labs reviewed.
Micro Results:
01/07/24 06:42 Blood Culture - Final
Blood/Venous No Growth - Final Report
01/07/24 06:42 Blood Culture - Final
Blood/Venous No Growth - Final Report
01/07/24 02:45 Urine Culture - Final
Urine Klebsiella pneumoniae-ESBL
01/07/24 09:49 MRSA Screen - Final
Nose No Methicillin Resistant Staphylococcus aureus isolated.
01/02/24 18:53 Urine Culture - Final
Urine
01/02/24 23:14 MRSA Screen - Final
Nose No Methicillin Resistant Staphylococcus aureus isolated.
[2024-01-14 11:52] LABS: Glucose - Point of Care 80 mg/dl (70-99)
[2024-01-14] MEDS: NOVOLOG FLEXPEN-MODERATE RESISTANCE SC ×2 (12:13→16:41)
--- NOTE | 2024-01-14 13:02 | PTCARENOTE ---
IV team at bedside attempting picc
--- NOTE | 2024-01-14 13:44 | VATNOTE ---
01/13 LEFT SL 4FR MIDLINE placed under sterile conditions. patient tolerated. Upon accessing the vessel, clots seen on wire guide. +BR after catheter insertion. Primary RN paged VAT d/t inability to flush. Pulled midline back 3cm and intermittently
able to flush with no blood return. patient denied pain. patient to start on blood thinners. RN instructed to try and draw blood after.
[2024-01-14] MEDS: ELIQUIS 10 MG PO ×2 (13:53→22:04)
[2024-01-14] MEDS: SENOKOT-S 1 TABLET PO (15:47)
[2024-01-14 16:50] LABS: Glucose - Point of Care 120 mg/dl (70-99)
[2024-01-14] MEDS: DEPAKOTE (12 HR RELEASE) 500 MG PO (17:22)
--- NOTE | 2024-01-14 17:35 | PTCARENOTE ---
Pt transferred to IMU after giving report to Peterson Moya who assumed care of pt. Family in room and updated the rest of family regarding tx. Pt without complaint at time of transfer. Belongings from room sent to 3341.
--- NOTE | 2024-01-14 18:10 | PTCARENOTE ---
received pt from ICU via bed. Pt has flat affect, responds appropriately. Son and granddaughter at bedside now. Sinus bradycardia on monitor. Lungs diminished throughout. 94% on 3L nc. pt needs encouragement to deep breathe. Abdomen obese, soft with
active bowel tones. Purewick in place and patent for iva urine. Pt has bilateral upper ext restrictions. BPs on leg. Midline intact to left arm and INT to left hand. Pt ate dinner before arriving to room 3341. No complaints at this time.
[2024-01-14] MEDS: REMERON 15 MG PO (20:13)
[2024-01-14] MEDS: FOLVITE 1 MG PO (20:13)
[2024-01-14] MEDS: INVANZ 60 MG IV (20:16)
[2024-01-14] MEDS: LANTUS 0.149999999999999994 UNITS SC (21:44)
[2024-01-14] MEDS: MORPHINE SULFATE 1 MG IV (21:45)
[2024-01-14] MEDS: FLUSH (NSS) 2 FLUSH IV (21:46)
[2024-01-14 21:50] LABS: Glucose - Point of Care 271 mg/dl (70-99)
[2024-01-15] VITALS (16 sets, daily range): BP systolic 97–142; BP diastolic 41–69; PULSE 2–66; BMI 26.8
--- NOTE | 2024-01-15 03:22 | PTCARENOTE ---
Pt resting well overnight on BIPAP POX 96-99%. AAOx3. Flat affect. VSS. Afebrile. SR/SB/PAC on CM rate 50's-60's. Denies pain or discomfort. Decreased ROM left arm. Left midline very difficult to flush, no blood return. VAT made aware and was
assessed. Leigh العليNP on floor and made aware. Order entered 'ok to use foot for lab draws.' Purewick in place draining adequate amounts iva urine. Rest of assessment as documented. Attempts made to maintained Q2hr turns. Pt can refuse at times
even after education. Call estrada remains within reach. Will continue to monitor.
--- NOTE | 2024-01-15 03:31 | VATNOTE ---
PT WITH LUE ML INSERTED WITH DIFFICULTY 01/13. LACK OF RELIABLE BR AT INSERTION TIME. CURRENTLY ML IS VERY DIFFICULT TO FLUSH AND WITH NO BR. IV ACCESS IN WNL AND FUNCTIONING WELL. WILL MAINTAIN ML AT THIS TIME AND REASSESS AT TIME OF ROUTINE RD IN
AM. SPOKE WITH REVENUE CYCLE MANAGER AND ORDER GIVEN TO USE FEET IF NECESSARY TO OBTAIN ORDERED AM LABS. PCN AWARE OF INTERVENTION AND PLAN OF CARE. VAT TO FOLLOW.
[2024-01-15 05:22] LABS: Hematocrit 30.9 % (37.0-47.0); Hemoglobin 10.1 g/dL (12.0-16.0); Mean Corp Hgb Conc. 32.7 g/dL (33.0-37.0); Mean Corpuscular Hgb 26.6 pg (27.0-31.0); Mean Corpuscular Volume 81.3 fL (81.0-99.0); Mean Platelet Volume 9.8 fL (7.4-10.4); Platelet Count 221 10^3/uL (130-400); Red Cell Dist. Width 20.4 % (11.5-14.5); White Blood Cell Count 10.1 10^3/uL (4.8-10.8)
[2024-01-15 05:29] LABS: Lactic Acid 1.3 mmol/L (0.7-2.0)
[2024-01-15 06:02] LABS: ALT (SGPT) 380 U/L (0-35); AST (SGOT) 52 U/L (14-36); Albumin 2.5 g/dl (3.5-5.0); Alkaline Phosphatase 92 U/L (38-126); Blood Urea Nitrogen 38 mg/dl (7-17); Calcium 8.1 mg/dl (8.4-10.2); Carbon Dioxide 24 mmol/L (22-30); Chloride 100 mmol/L (98-107); Estimated Creatinine Clearance 32 ml/min; Glucose 176 mg/dl (70-99); Magnesium 1.8 mg/dl (1.6-2.3); Phosphorus 4.7 mg/dl (2.5-4.5); Potassium 4.2 mmol/L (3.5-5.1); Sodium 132 mmol/L (135-145); Total Bilirubin 0.3 mg/dl (0.2-1.3); Total Protein 5.3 g/dl (6.3-8.2); eGFR 42.62
[2024-01-15] MEDS: B COMPLEX w/VITAMIN C 1 CAPLET PO (07:57)
[2024-01-15] MEDS: VITAMIN D3 (cholecalciferol) 50 MCG PO (07:57)
[2024-01-15] MEDS: PROTONIX 40 MG PO (07:57)
[2024-01-15] MEDS: COREG 6.25 MG PO ×2 (07:57→19:30)
[2024-01-15] MEDS: ASPIR LOW (ENTERIC COATED) 81 MG PO (07:57)
[2024-01-15] MEDS: CYMBALTA DELAYED RELEASE 60 MG PO (07:57)
[2024-01-15] MEDS: ELIQUIS 10 MG PO ×2 (07:58→19:29)
[2024-01-15] MEDS: SYNTHROID 112 MCG PO (07:58)
[2024-01-15] MEDS: PACERONE 400 MG PO ×2 (07:58→19:30)
[2024-01-15] MEDS: LASIX 40 MG IV ×2 (08:02→16:41)
[2024-01-15] MEDS: NOVOLOG FLEXPEN-MODERATE RESISTANCE SC (08:10)
[2024-01-15 08:22] LABS: Glucose - Point of Care 148 mg/dl (70-99)
--- NOTE | 2024-01-15 08:59 | W.PN.HOSP.TC ---
Today's Communication/Plan
-
continue diuresis
wean O2
continue PT/OT
apprec all consultants' input
Assessment / Plan
Assessment / Plan
pt is a 78 year old female
acute respiratory distress 01/13/24--rapid response called by Dr. Horton-- flash pulm edema from rapid aflutter--transferred to ICU 01/12--placed on BiPAP--much improved, moved to IMU-- BiPAP at night and transition back to O2, wean to off during
day--diurese
acute DVT right arm--midline removed but now no IV access--clot propagates into right IJ but is nonocclusive--will defer IV access to critical care paramedic--short course Eliquis, would not continue at d/c
NSTEMI--h/o CAD/multivessel disease and was refused bypass surgery at that time due to several risk factors--Follow up Echo 01/03 noted Severely reduced left ventricular systolic function, EF 25-30%. Mild pulmonary hypertension. Compared to the prior
study earlier, EF is worsened--Trop peaked at 45.8 to 24--apprec Card--cardiac cath 01/11 without obvious cause for drop in EF
AR on CKD stage 3--SCr 2.1 -> 1.3; (1.0 baseline)--IV Lasix restarted 01/12 by renal----apprec Renal
Shock (with shock liver and lactic acidosis resolved) likely related to ischemic colitis--(h/o Recurrent ESBL Klebsiella UTI)--s/p Bicarb drip per renal--Pt was upgraded to ICU 01/05, and pressor Levophed was started on 01/05 and discontinued on
01/08---off Tylenol--Urine Cx from 01/06 grew ESBL Klebsiella--Cont ertapenem--Cont empiric PO vanco BID as per ID notes for h/o C diff colitis--ID following
acute on chronic (now) systolic heart failure--BNP elevated--BL LE US neg for DVT--still hypoxic---Was on IV Lasix, then held due to worsening AR--ENGINEERING VICE PRESIDENT Coreg and nifedipine DC'ed due to shock--apprec cards--Follow up Echo 01/03 noted Severely reduced
left ventricular systolic function, EF 25-30%. Mild pulmonary hypertension. Compared to the prior study earlier, EF is worsened--s/p cardiac cath 01/11
New onset diffuse abdominal pain, started overnight of 01/03. There was concern of ischemic colitis, which appears to be resolving--CT AP with PO contrast was unrevealing, noted constipation--Pt was started with Miralax BID, Senokot-S BID, Dulcolax
PRN; adjust all bowel regimen to PRN--Cont empiric IV PPI BID--Low dose IV morphine PRN for pain--on low residue--apprec GI/surg
Hyperkalemia-- treated
New R lung infiltrate noted from 01/06--New acute hypoxic respiratory failure--high flow NC -> weaned to 1L NC (CXR 01/06 with new significant airspace disease within the right lung characterized by interstitial and patchy/more confluent airspace
opacity within the peripheral right midlung. Findings suspicious for pneumonia versus asymmetric pulmonary edema)--MRSA Screen neg--elevated d dimer noted, repeat LE US neg for DVT, VQ scan cancelled--Cont Ertapenem as above--apprec ID
anemia of chronic disease--Hgb at 7.1 on 01/08, transfused 1 unit PRBC, Hgb improved to 10.9 on 01/13/24--Iron studies, B12, folate levels reviewed and acceptable--Cont empiric Protonix 40 IV BID
Hypocalcemia--repleted
CAD status post stents/Paroxysmal atrial fibrillation per note--Continue aspirin--off Coreg--not on anticoagulation as outpt given frequent falls
Hypothyroidism--Continue levothyroxine
Hyperlipidemia--off statin
Type 2 diabetes--Holding metformin--Sliding scale
Essential hypertension--Off ENGINEERING VICE PRESIDENT nifedipine/Coreg
Trigeminal neuralgia--Continue Depakote
Overactive bladder--On tolterodine at home
Chronic pain/fibromyalgia/depression--Continue duloxetine, mirtazapine
Cough following diet from initial presentation--pt seen by [facility], rec GI given pt's complaints of GERD without official dx or prescribed tx, as well as reported difficulty/coughing/choking with solids more than liquids.
GI felt chronic intermittent dysphagia could be related to esophagitis or presbyesophagus. Recommend Protonix 40mg daily. Can also check outpt EGD/colonoscopy for iron deficiency.
Clinical deconditioning due to shock--PT/OT rec SNF
code status --Full code
DVT prophylaxis� heparin SQ
Dispo: SNF per PT OT eval
Anticipated Discharge: > 48 hours
Subjective/Interval History
-
Date of Service: January 15, 2024
pt feeling much better
Objective Data
-
Labs:
Laboratory Results
01/15/24
05:07
WBC 10.1
Hgb 10.1 L
Hct 30.9 L
Plt Count 221 D
Sodium 132 L
Potassium 4.2
Chloride 100
Carbon Dioxide 24
BUN 38 H
Creatinine 1.3 H
Glucose 176 H
Calcium 8.1 L
Total Bilirubin 0.3
AST 52 H
ALT 380 H
Alkaline Phosphatase 92
Vital Signs:
max temp for 24 hours
01/14/24
15:08
Temp 98.2 F
Vital Signs
Temp Pulse Resp BP Pulse Ox
97.3 F 53 14 104/49 99
01/15/24 07:49 01/15/24 08:02 01/15/24 06:00 01/15/24 08:02 01/15/24 06:00
I&O
01/14/24 01/15/24 01/16/24
06:59 06:59 06:59
Intake Total 150 / 150 1320 / 1320
Output Total 950 / 950 2400 / 2400
Balance -800 / -800 -1080 / -1080
Review of Systems
-
All other systems: Reviewed and negative
Physical Exam
-
General: Well Developed, Well Nourished and No Apparent Distress
HEENT: Normocephalic, Atraumatic and Oxygen
Respiratory: Clear to Auscultation; Negative Wheezes or Rhonchi
Cardiac: Regular Rhythm and S1/S2; Negative Murmur
GI: Soft, Nontender, Nondistended and Normal Bowel Sounds
Musculoskeletal: No Clubbing, No Cyanosis and No Edema
Skin: Warm
Neuro: Awake and Alert
Psych: Calm
--- NOTE | 2024-01-15 09:41 | VATNOTE ---
Called to assess left mid line unable to flush. Dressing removed and midline retracted 5cm, able to flush midline with brisk blood return, redressed with gauze D/T bleeding.
--- NOTE | 2024-01-15 10:20 | W.PN.PUL3 ---
Today's Communication / Plan
-
Diurese to maintain net negative fluid balance as tolerated - aim for net (-) 1-1.5L per day over next 24 hrs, then reduce the diuresis either to once daily or change to PO to avoid over-diuresis
Given RUE DVT, continue therapeutic AC with NOAC. Continue fall precautions with PT/OT evaluation. They had recommend skilled rehab. Ideally, she should obtain repeat RUE ultrasound in 4-6 weeks to assess if DVT still present and if resolved at
that time then could remove her from anticoagulation as an outpatient.
Recommend risk vs benefit discussion with family as she has a RUE DVT, but also is at risk of fall with ICH. Patient/family need to be aware of benefits and risks of AC.
Patient remains stable on room air - no additional pulmonary recommendations at this time. Pulmonary service will now sign off. Please reconsult if there are any additional questions/concerns, or if patient's respiratory status deteriorates.
Assessment
-
78-year-old woman with multiple/complex medical history. Initially came with lower extremity edema. Diuresed on initial presentation. Subsequently developed acute kidney injury, hypotension and lower abdominal pain. Required vasopressors.
Evaluated for bowel ischemia, CT abdomen pelvis did not confirm this. Found to have shock liver, increased troponins, hypoxemia and transferred to the critical care unit for further evaluation and care. She had improved and was transferred out of
the unit, and is now returning due to acute respiratory distress requiring BiPAP due to acute hypoxic respiratory failure with volume overload.
Impression:
Acute respiratory failure with hypoxia due to acute HFrEF exacerbation/severe MR with acute pulmonary edema + pleural effusions requiring BiPAP --> now weaned to room air and breathing comfortably
Suspected sepsis-induced cardiomyopathy versus Takotsubo cardiomyopathy
Chronic anemia
Valvular heart disease with severe mitral regurgitation
Acute kidney injury superimposed on CKD (baseline creatinine approximately 0.9�1)
RUE DVT - likely related to recent midline (midline placed into R-basilic vein on 01/06/2024 - removed on 01/13/2024)
DM type II complicated by hyperglycemia --> glucose now normalized however BG was elevated on evening of 01/14/2024
Lactic acidosis - normalized
Septic shock: UTI --> shock state now resolved
Urine culture with Klebsiella pneumonia ESBL (seen on UCx from 01/07/2024)
Increased troponin: Suspect type II [place] vs ACS - peaked at 45.8 on 01/06/2024 --> now re-checked on 01/13/2024, and is still elevated at 1.31 --> 1.99
Prior history of coronary artery disease with stents in the past. Multivessel coronary artery disease per family report
Shock liver suspected - improving
Abdominal pain: Was suspected to be due to UTI/ cystitis - abd pain now resolved
CT abdomen pelvis 01/05/2024: Moderate fecal material throughout the colon. Moderate diffuse bladder wall thickening. No other acute abnormality.
Conditions present prior admission:
Coronary artery disease with prior stents
Left bundle branch block
Paroxysmal atrial fibrillation
History of CVA
History of trigeminal neuralgia
Obstructive sleep apnea
Hypertension
Hypothyroidism
Hyperlipidemia
Type 2 diabetes
Depression
Prior UTI-ESBL
Left shoulder replacement complicated by septic shoulder
Subdural hematoma
Overactive bladder
Recurrent UTIs
Cholecystectomy
Hysterectomy
Left hip surgery
Assessment and plan:
Patient was already in the ICU and downgraded to [facility] on 01/09/2024. She was down to 1 L/min nasal cannula on 01/10/2024. She had a left heart cath on 01/11 showing severe MR with global hypokinesis and elevated LVEDP due to left-sided heart failure.
On 01/12 she developed acute respiratory distress due to acute pulmonary edema, BiPAP was started and she was diuresed.
Continue with diuresis with prn BiPAP
I believe we are out of the danger zone of her being intubated -> dionna with her now on room air breathing comfortably
Maintain SpO2 >90-94%
Avoid hypercapnea
Inadequate IV access:
I looked at her LUE and RUE myself with the US --> she has a RUE brachial thrombus that extends to her RUE basilic vein. Unfortunately this RUE should not be used for now, and she should be started on AC with either heparin gtt or NOAC. Considering
that she is volume overloaded, and with an AR, I favor starting her on an NOAC with Eliquis --> this was started on 01/13. She is suspected to be a fall risk, however, so we will start Eliquis for now, and have PT/OT see her. We may need to stop AC
before discharge, after a risk vs benefit discussion with the patient. Pt seen by PT/OT and they rec'd skilled rehab upon discharge
Fall precautions
LUE midline placed by IV access team
-
Previously she was in septic shock from UTI/possibly
CT abdomen pelvis with bladder thickening-possible cystitis
Urine culture with Klebsiella ESBL
Continue antibiotics per infectious disease - currently on Ertapenem, last day today
She is on oral vancomycin twice a day as prophylaxis given her history of C. difficile
Lactic acid had cleared as of 01/07/2024 --> it had increased again and has now cleared as of this AM
-
Maintain MAP>65
Ok to resume antihypertensive and continue IV diuresis given she is in acute decompensated heart failure with bilateral pleural effusions and acute pulmonary edema
Diet as per CLERICAL PROOFREADER - pt passed this on 01/13
-
Shock liver:
AST was >4000, ALT was >3500 on 01/06/2024: Suspect ischemic injury.
Continue to trend LFTs
Patient is a s/p cholecystectomy in the past
-
Lower abdominal pain - abd pain now resolved: Evaluated for bowel ischemia but CT scan did not confirm
Less likely bowel ischemia as lactic acid cleared.
Continue with serial abdominal exam
Amylase and lipase were normal
Cannot rule out cardiac ischemic equivalent vs abdominal pain due to cystitis
Surgery has signed off
Passed CLERICAL PROOFREADER eval on 01/14/2024
-
Hypoxemic respiratory failure due to acute decompensated heart failure/acute pulmonary edema with acute HFrEF exacerbation; Less likely pneumonia clinically. Subsegmental atelectasis also playing a role.
Was on 1 L nasal cannula up until earlier on AM of 01/12 --> then became suddenly SOB with CXR showing bilateral pleural effusions with acute pulmonary/interstitial edema, worse when compared to former CXR on 01/10/2024.
Also her gastric bubble is enlarged but no SBO seen on AXR.
Diurese to maintain net negative fluid balance as tolerated - aim for net (-) 1-1.5L per day over next 24 hrs, then reduce the diuresis either to once daily or change to PO to avoid over-diuresis - cardiology on board, defer diuresis to them
Encouraged incentive spirometry once she is off bipap
-
Lower extremity Dopplers on 01/07/2024 was negative for DVT
No need for VQ scan. Less likely thromboembolic event.
Acute lung injury from septic shock also with possibility.
-
Acute systolic cardiomyopathy - likely septic induced vs Takotsubo's cardiomyopathy
Echocardiogram repeated 01/07/2024 showed new decreased LVEF with motion wall abnormality, possible type II ischemia due to septic shock in the setting of multivessel coronary artery disease-Per family in the past patient not a candidate for coronary
artery bypass but has history of stents.
Left heart cath performed on 01/12/2024 showed nonobstructive CAD with SPECIAL EDUCATION ASSISTANT of proximal RCA � no acute ischemic cause for sudden systolic dysfunction.
GDMT as per cardiology
Cardiology correspondence reviewed
Troponin initially elevated earlier in her hospitalization which peaked at 45.8 on 01/05; it was then rechecked on 01/12 and has been trending up to continue to monitor until begins to downtrend
-
Anemia:
Received 1 unit PRBC on 01/09/2024
No evidence for bleeding.
Continue to trend and transfuse to keep Hb >8 (given recent concern for NSTEMI), plt>20k
Started systemic AC on 01/13 with Eliquis for RUE DVT
-
Acute kidney injury: Likely ATN.
Creatinine now at 1.3
Nephrology following the patient
Continue hemodynamic support
Trend BMP
-
Hyperglycemia:
ISS
Continue lantus HS with ISS moderate resistance
Goal BG 140-180mg/dL
-
Aspiration precautions
Head of the bed elevation
She has a RUE DVT --> she was started on therapeutic AC with Eliquis on 01/13. Continue Eliquis 10mg BID x 7 days, then 5mg BID after that. She should get repeat RUE US in 4-6 weeks to assess if DVT still present, and if not then she could be removed
from AC at that time. Of note, her Abx will end today. PT/OT rec'd skilled rehab. PT/OT to assess her fall risk now that she is on AC, and if risk is too high then she should be removed from Eliquis after risks vs benefit discussion is held with
patient/family.
-
No additional pulmonary recommendations at this time. Pulmonary service will now sign off. Thank you for allowing us to be involved in the care of this patient. Please reconsult if there are any additional questions/concerns, or if patient's
respiratory status deteriorates.
Total time spent today was 35 minutes for this encounter. Time includes reviewing laboratory test/imaging results, reviewing pertinent medical records, obtaining and reviewing medical history, performing an appropriate exam, ordering medications,
tests and procedures. Time also includes documentation of this encounter, coordinating patient care and communicating with other healthcare professionals. Total time does not include separately billed tests performed on this date of service.
Subjective Data
-
Date of Service:
Date of Service: January 15, 2024
Chief Complaint: Pulmonary Follow Up
Subjective:
Patient seen and evaluated today. She is on room air breathing currently. SpO2 94%. BP 126/70 heart rate 63. She feels well, is eager to go home. She denies shortness of breath, chest pain, headache, fevers or chills. She is net -1.08 L over
the last 24 hours.
Review of Systems
General: Other (Negative unless mentioned above)
Objective Data
Data Reviewed
Vital Signs / I&O / Oxygen:
Vital Signs
Temp Pulse Resp BP Pulse Ox
97.3 F 53 12 104/49 96
01/15/24 07:49 01/15/24 08:02 01/15/24 08:00 01/15/24 08:02 01/15/24 09:07
Intake and Output
01/14/24 01/15/24 01/16/24
06:59 06:59 06:59
Intake Total 150 / 150 1320 / 1320
Output Total 950 / 950 2400 / 2400
Balance -800 / -800 -1080 / -1080
SaO2 96
Nasal Cannula flow liters per 2
minute
Physical Exam
General: Respiratory Distress (negative) and Comfortable
HEENT: Normocephalic and Anicteric
Cardiovascular: S1-S2 and Peripheral Edema (negative)
Respiratory: Wheeze (negative), Crackles (faint), Rhonchi (negative) and Accessory Resp Muscle Use (n)
GI: Soft, Non Distended, Non Tender and Normal Bowel Sounds
Neurology: Awake and Alert
Skin: Warm, Dry and Other (Compression stockings on lower extremities bilaterally)
Labs/Micro/Reports
Lab Data
01/15/24 05:07
01/15/24 05:07
Microbiology
01/07/24 06:42 Blood/Venous Blood Culture - Final
No Growth - Final Report
01/07/24 06:42 Blood/Venous Blood Culture - Final
No Growth - Final Report
--- NOTE | 2024-01-15 11:05 | W.PN.ID1 ---
Date of Service
Date of Service: January 15, 2024
Today's Communication
Last day ertapenem
Continue oral vancomycin BID ppx through 01/19.
ID will sign off.
Assessment / Plan
UTI due to ESBL-Ecoli, colonization with ESBL
Shock Liver - resolving
Reported history of C difficile
Numerous Stated Drug Intolerances/allergies
- blood cultures x2 finalized negative
- Urine culture 100K ESBL K pneumoniae
- Last day ertapenem
Diarrhea
H/o C difficile
- only abdominal pain at this time is suprapubic, stool is nonbloody, leukocytosis has resolved; was recently on scheduled senna and miralax and was known to have some constipation - would not pursue further workup at this moment
- agree with holding cathartics
- benefits of protonix outweigh risks
- continue oral vancomycin BID ppx while on broad spectrum rx and for 5 days after through 01/19.
- s/p cardiac cath
ID will sign off.
����������������������������������������������������������
Chief Complaint
-: UTI
Subjective / Review of Systems
No new complaints.
Vital Signs / Physical Exam
Vital Signs
Vital Signs
Temp Pulse Resp BP Pulse Ox
97.3 F 53 12 104/49 96
01/15/24 07:49 01/15/24 08:02 01/15/24 08:00 01/15/24 08:02 01/15/24 09:07
Physical Exam
Constitutional: No Acute Distress
Genito-Urinary: Negative CVA Tenderness
Neurological: AO x 3
Objective Data
Lab Data
Lab Results
01/15/24 05:07
01/15/24 05:07
PT 19.7 Sec (11.4-14.6) H 01/07/24 04:17
INR 1.69 01/07/24 04:17
APTT 35.9 Sec (23.4-35.0) H 01/07/24 04:17
Estimated Creat Clear 32 ml/min 01/15/24 05:07
Lactic Acid 1.3 mmol/L (0.7-2.0) 01/15/24 05:07
Total Bilirubin 0.3 mg/dl (0.2-1.3) 01/15/24 05:07
AST 52 U/L (14-36) H 01/15/24 05:07
ALT 380 U/L (0-35) H 01/15/24 05:07
Alkaline Phosphatase 92 U/L (38-126) 01/15/24 05:07
Amylase 55 U/L (30-110) 01/06/24 21:05
Most recent labs reviewed.
Micro Results:
01/07/24 06:42 Blood Culture - Final
Blood/Venous No Growth - Final Report
01/07/24 06:42 Blood Culture - Final
Blood/Venous No Growth - Final Report
01/07/24 02:45 Urine Culture - Final
Urine Klebsiella pneumoniae-ESBL
01/07/24 09:49 MRSA Screen - Final
Nose No Methicillin Resistant Staphylococcus aureus isolated.
01/02/24 18:53 Urine Culture - Final
Urine
01/02/24 23:14 MRSA Screen - Final
Nose No Methicillin Resistant Staphylococcus aureus isolated.
--- NOTE | 2024-01-15 11:20 | W.PN.NEPH.PH ---
Today's Communication / Plan
-
cotn lasix
Assessment/Plan
-
Impression:
Acute kidney injury
Baseline CKD3a (1.1)
History of recurrent UTI (ESBL)
Coronary artery disease with previous stenting procedure
Paroxysmal atrial fibrillation
History of CVA
Hypothyroidism
Diabetes mellitus type II
History of subdural hematoma
Trigeminal neuralgia
Multiple left shoulder surgeries with septic left shoulder hardware removal
Bladder dysfunction
Chronic pain/ fibromyalgia
Depression
Restless leg syndrome
Anemia
Hyperkalemia
Metabolic acidosis
Elevated LFTs
Abdominal pain
Plan:
over all stable renal function
wt improving, likely change to po diuresis in am
wean O2 as tolerated
AC for R UE DVT , monitor for hematuria
follow BMP
d/w nursing
-
-
Date of Service: January 15, 2024
CC / HPI / ROS
-
Chief Complaint:
AR
History of Present Illness:
BP stable but soft
Cr stable at 1.3,
wt is decreasing
LFTs -improving
s/p cardiac cath /-high pressures/decompensated HF
last day of abx
Review of Systems:
on NC 2lit
pt denies sob or sp at rest
no fever
Labs
-
Labs:
WBC 10.1 10^3/uL (4.8-10.8) 01/15/24 05:07
RBC 3.80 10^6/uL (4.20-5.40) L 01/15/24 05:07
Hgb 10.1 g/dL (12.0-16.0) L 01/15/24 05:07
Hct 30.9 % (37.0-47.0) L 01/15/24 05:07
Plt Count 221 10^3/uL (130-400) D 01/15/24 05:07
Sodium 132 mmol/L (135-145) L 01/15/24 05:07
Potassium 4.2 mmol/L (3.5-5.1) 01/15/24 05:07
Chloride 100 mmol/L (98-107) 01/15/24 05:07
Carbon Dioxide 24 mmol/L (22-30) 01/15/24 05:07
BUN 38 mg/dl (7-17) H 01/15/24 05:07
Creatinine 1.3 mg/dL (0.6-1.0) H 01/15/24 05:07
eGFR 42.62 01/15/24 05:07
Glucose 176 mg/dl (70-99) H 01/15/24 05:07
Calcium 8.1 mg/dl (8.4-10.2) L 01/15/24 05:07
Phosphorus 4.7 mg/dl (2.5-4.5) H 01/15/24 05:07
Rzd-R-Aatnracxcav Pept Cancelled 01/14/24 14:05
Albumin 2.5 g/dl (3.5-5.0) L 01/15/24 05:07
Physical Exam
-
Vital Signs:
Vital Signs
Temp Pulse Resp BP Pulse Ox
97.3 F 53 12 104/49 96
01/15/24 07:49 01/15/24 08:02 01/15/24 08:00 01/15/24 08:02 01/15/24 09:07
Cardiovascular:: Regular rate and rhythm
Lung Excursion:: Normal (decreased)
Abdomen:: Nontender and Soft
Extremity Edema:: +1: Bilateral: (thigh)
Lawton Catheter: No
[2024-01-15 12:38] LABS: Glucose - Point of Care 165 mg/dl (70-99)
[2024-01-15] MEDS: NOVOLOG FLEXPEN-MODERATE RESISTANCE 1 UNITS SC (13:41)
[2024-01-15] MEDS: FIRVANQ 125 MG PO ×2 (13:41→23:29)
--- NOTE | 2024-01-15 14:28 | PTCARENOTE ---
Patient watching TV with spouse. Patient has no c/o pain at present. Patient is 98-100% on 1L NC. O2 removed, sats between 95-89% on RA. Pleth is not consistently strong and monitor will read 80's (pulse ox on left ear lobe). Patient tolerating 100%
of meals, skin care provided, patient is chair position in bed. Call bel in reach.
--- NOTE | 2024-01-15 15:04 | W.PN.CD ---
Today's Communication / Plan
-
-Continue Coreg, amiodarone, and IV Lasix.
Impression / Plan
-
Admitted 01/02/2024 with chief complaint of edema. Complex hospitalization with hypotension, shock, and abdominal pain. During this admission she has had an SD that is likely a Type II SD.
Improved resp insuf/hypotension/shock liver
-currently on BiPAP
Abdominal pain, not felt to be ischemic bowl
HFrEF, acute
- continue lasix 40mg IV bid, with close monitoring of labs with baseline CKD3a and AR on admission: nephrology consulted
Cardiomyopathy: new decline in LVEF, seems NICM, with no acute change in coronary anatomy (see below for cath 01/11, med mgmt)--could be sepsis induced vs Takutsubo variant
- LVEF 01/04/2024: Normal
- LVEF 01/07/2024: 25-30% with extensive anterior, lateral, and apical wall motion changes (Echo IV contrast); no sig valve disease noted
- metoprolol allergy listed: seems to be tolerating coreg
-Continue Coreg to 6.25mg bid
-other GDMT limited by AR, renal function: to re-assess as she recovers
-to repeat echo inpatient vs outpatient based on clinical course
Paroxysmal Afib, with recurrence of A fib with RVR this admission
-not on OAC as outpatient due to frequent falls, high bleeding risk
-back in sinus with IVCD noted on EKG (QT also prolonged, but in setting of IVCD)
-cont coreg
-Continue PO amiodarone load to keep in SR during period of critical illness
-repeat EKG in AM
-400mg bid for 2 weeks (through 01/27), then 200mg daily
-then can plan to stop as outpatient, perhaps in 6-8 weeks
Type II SD
- Never had chest pain. EKG has new loss of anterior R waves and echo with impressive new wall motion changes
- Peak troponin 45.8 on 01/06/2024 (first troponin drawn during hospital stay)
- cath 01/11 does not show acute change in coronary anatomy
-ASA 81mg daily
-records indicate statin intolerance
Known complex CAD and in past was not a CABG candidate
- Records from [facility]/Dr Mejia 04/06/2023 reviewed
- Last cath seems to have been an Impella supported Left Main PCI with a HEMAL (4x12 Promus) in 08/2019
- Cath 08/2019: 50-60 LM, 80 LAD, 80 Ramus, 100 RCA
- cath this admit 01/11 without acute ischemic disease . LM stent patent. RCA ATG ARCHITECT
-ASA 81mg daily
ID -
- ID consult following
- UTI - RSBL
- BC negative ( note that first blood cultures on transfer to ICU were after abx
Improved AR on CKD. From 2.3-1.0
Acute anemia, not felt to be GI blood loss
- 1 unit PRBC on 01/07/2024
- Improving continue to monitor
Prior CVA
HTN
DM, type II
PAD, prior intervention
CARDIAC CATH 01/12/24
CONCLUSIONS
1. Right dominant circulation with chronic total occlusion of the proximal RCA (with collaterals from LAD); densely calcified 30% lesion in the proximal LAD, a long 30% lesion in the mid vessel and diffuse disease of the second diagonal which
parallels the LAD and supplies the apex but is too small for intervention, a small to medium size ramus that is diffusely diseased and not amenable to intervention and a 40% lesion in the origin of OM1.
2. Dilated left ventricle with severe global hypokinesis, perhaps worse in the apex with severe LV systolic dysfunction, LV ejection fraction 30%.
3. Severe mitral valve regurgitation.
4. Severely elevated filling pressures (LVEDP = 30 mmHg at 64.0 kg) with severe diastolic dysfunction (A wave to 45 mmHg).
5. No acute ischemic cause for sudden systolic dysfunction. Considerations include sepsis induced LV dysfunction versus Takotsubo variant versus postviral myocarditis (no history of URI, less likely).
Subjective:
Feels better. . No CP or dyspnea
CCT 35 minutes.
Physical Exam
Vital Signs/Labs
Vital Signs
Temp Pulse Resp BP Pulse Ox
97.9 F 56 15 120/55 97
01/15/24 11:33 01/15/24 14:00 01/15/24 14:00 01/15/24 14:00 01/15/24 14:00
01/14/24 01/15/24 01/16/24
06:59 06:59 06:59
Actual Weight 64.2 kg
01/15/24 05:07
01/15/24 05:07
PT 19.7 Sec (11.4-14.6) H 01/07/24 04:17
INR 1.69 01/07/24 04:17
APTT 35.9 Sec (23.4-35.0) H 01/07/24 04:17
Magnesium 1.8 mg/dl (1.6-2.3) 01/15/24 05:07
01/02/24 01/12/24 01/14/24
15:25 04:33 14:05
Pki-R-Xwwhalnrzwg Pept 7590 > 95784 Cancelled
LAB Results
01/13/24 01/13/24 01/14/24
12:30 18:32 14:05
Troponin I 1.310 H* 1.990 H* D Cancelled
Physical Exam
Constitutional: No acute distress and Comfortable
EENT: Anicteric
Cardiovascular: Rhythm & rate is regular, Systolic murmur absent, Pedal edema present (Trace) and S1S2 is normal
Respiratory: Respiratory effort normal and Rhonchi Present (Bibasilar)
GI: Soft
Neuro/Psych: AO x 3
Other: Skin (Warm, dry, intact)
Data Reviewed
-
Date of Service: January 15, 2024
EKG: Tracing Personally Visualized and interpreted (Telemetry: Sinus rhythm)
Medical Tests (PFT, Pathology etc): Discussed with Patient and Discussed with Family (, at bedside)
Labs: Labs Reviewed by me
[2024-01-15] MEDS: NOVOLOG FLEXPEN-MODERATE RESISTANCE 5 UNITS SC (16:34)
[2024-01-15 16:44] LABS: Glucose - Point of Care 277 mg/dl (70-99)
[2024-01-15] MEDS: DEPAKOTE (12 HR RELEASE) 500 MG PO (17:45)
[2024-01-15] MEDS: INVANZ 60 MG IV (19:29)
[2024-01-15] MEDS: REMERON 15 MG PO (19:30)
[2024-01-15] MEDS: FOLVITE 1 MG PO (19:30)
[2024-01-15] MEDS: LANTUS 0.149999999999999994 UNITS SC (21:48)
[2024-01-15 21:57] LABS: Glucose - Point of Care 193 mg/dl (70-99)
[2024-01-16] VITALS (12 sets, daily range): BP systolic 103–131; BP diastolic 34–62; PULSE 2–68; BMI 26.6
[2024-01-16 05:21] LABS: Hematocrit 27.9 % (37.0-47.0); Hemoglobin 8.9 g/dL (12.0-16.0); Mean Corp Hgb Conc. 31.9 g/dL (33.0-37.0); Mean Corpuscular Hgb 27.1 pg (27.0-31.0); Mean Corpuscular Volume 84.8 fL (81.0-99.0); Mean Platelet Volume 11.3 fL (7.4-10.4); Platelet Count 245 10^3/uL (130-400); Red Blood Cell Count 3.29 10^6/uL (4.20-5.40); Red Cell Dist. Width 20.5 % (11.5-14.5); White Blood Cell Count 10.5 10^3/uL (4.8-10.8)
[2024-01-16 05:39] LABS: ALT (SGPT) 303 U/L (0-35); AST (SGOT) 38 U/L (14-36); Albumin 2.5 g/dl (3.5-5.0); Alkaline Phosphatase 79 U/L (38-126); Blood Urea Nitrogen 41 mg/dl (7-17); Carbon Dioxide 33 mmol/L (22-30); Chloride 96 mmol/L (98-107); Estimated Creatinine Clearance 29 ml/min; Glucose 101 mg/dl (70-99); Magnesium 1.5 mg/dl (1.6-2.3); Potassium 4.2 mmol/L (3.5-5.1); Sodium 135 mmol/L (135-145); Total Bilirubin 0.2 mg/dl (0.2-1.3); Total Protein 5.2 g/dl (6.3-8.2); eGFR 38.99
[2024-01-16] MEDS: SYNTHROID 112 MCG PO (06:10)
--- NOTE | 2024-01-16 06:13 | PTCARENOTE ---
Pt tolerated BIPAP 12/5/6L overnight. Slept well. Discomfort to left shoulder. Medicated with IV Morphine x 1 with good relief. VSS Afebrile. SB/SR/BBB/PAC/PQT on CM rate 40's-60's. Maintained on Q2hr turns. No change from previous assessment. Call
estrada remains within reach. Will continue to monitor.
[2024-01-16 07:27] LABS: Glucose - Point of Care 75 mg/dl (70-99)
[2024-01-16] MEDS: MAGNESIUM SULFATE 50 IV (07:27)
[2024-01-16] MEDS: VITAMIN D3 (cholecalciferol) 50 MCG PO (07:46)
[2024-01-16] MEDS: PROTONIX 40 MG PO (07:46)
[2024-01-16] MEDS: ASPIR LOW (ENTERIC COATED) 81 MG PO (07:46)
[2024-01-16] MEDS: B COMPLEX w/VITAMIN C 1 CAPLET PO (07:46)
[2024-01-16] MEDS: CYMBALTA DELAYED RELEASE 60 MG PO (07:47)
[2024-01-16] MEDS: PACERONE 400 MG PO ×2 (07:47→20:20)
[2024-01-16] MEDS: COREG 6.25 MG PO ×2 (07:47→20:20)
[2024-01-16] MEDS: NOVOLOG FLEXPEN-MODERATE RESISTANCE SC (07:48)
[2024-01-16] MEDS: LASIX 40 MG IV ×2 (07:48→15:50)
[2024-01-16] MEDS: ELIQUIS 10 MG PO ×2 (07:48→20:20)
--- NOTE | 2024-01-16 08:09 | W.PN.HOSP.TC ---
Today's Communication/Plan
-
PT/OT
d/c planning
Assessment / Plan
Assessment / Plan
pt is a 78 year old female
acute respiratory distress 01/13/24--rapid response called by Dr. Horton-- flash pulm edema from rapid aflutter--transferred to ICU 01/12--placed on BiPAP--much improved, moved to IMU, downgrade to tele 01/15-- BiPAP at night and transition back to O2,
wean to off during day--diurese
acute DVT right arm--midline removed--clot propagates into right IJ but is nonocclusive---short course Eliquis, would not continue at d/c
NSTEMI (TYPE II FL) this admission--h/o CAD/multivessel disease and was refused bypass surgery at that time due to several risk factors--Follow up Echo 01/03 noted Severely reduced left ventricular systolic function, EF 25-30%. Mild pulmonary
hypertension. Compared to the prior study earlier, EF is worsened--Trop peaked at 45.8--apprec Card--cardiac cath 01/11 without obvious cause for drop in EF
paroxysmal afib--apprec cards--cont coreg, amio 400mg bid for 2 weeks (through 01/27), then 200mg daily then can plan to stop as outpatient in 6-8 weeks--not on anticoagulation as outpt given frequent falls
AR on CKD stage 3--SCr 2.1 -> 1.3; (1.0 baseline)--IV Lasix restarted 01/12 by renal----apprec Renal
Shock (with shock liver and lactic acidosis resolved) likely related to ischemic colitis (CT AP with PO contrast was unrevealing, noted constipation)--(h/o Recurrent ESBL Klebsiella UTI)--s/p Bicarb drip per renal--Pt was upgraded to ICU 01/05, and
pressor Levophed was started on 01/05 and discontinued on 01/08---off Tylenol--Urine Cx from 01/06 grew ESBL Klebsiella--Finished ertapenem--Cont empiric PO vanco BID as per ID notes for h/o C diff colitis
acute on chronic (now) systolic heart failure--BNP elevated--BL LE US neg for DVT--still hypoxic---Was on IV Lasix, then held due to worsening AR--[employer] Coreg and nifedipine DC'ed due to shock--apprec cards--Follow up Echo 01/03 noted Severely reduced
left ventricular systolic function, EF 25-30%. Mild pulmonary hypertension. Compared to the prior study earlier, EF is worsened--s/p cardiac cath 01/11
Hyperkalemia-- treated
Hypomagnesemia--replete
New R lung infiltrate noted from 01/06--New acute hypoxic respiratory failure--high flow NC -> weaned to 1L NC (CXR 01/06 with new significant airspace disease within the right lung characterized by interstitial and patchy/more confluent airspace
opacity within the peripheral right midlung. Findings suspicious for pneumonia versus asymmetric pulmonary edema)--MRSA Screen neg--elevated d dimer noted, repeat LE US neg for DVT, VQ scan cancelled--Finished Ertapenem as above--apprec ID
anemia of chronic disease--Hgb at 7.1 on 01/08, transfused 1 unit PRBC, Hgb improved to 10.9 on 01/13/24--Iron studies, B12, folate levels reviewed and acceptable--Cont empiric Protonix 40 IV BID
Hypocalcemia--repleted
Hypothyroidism--Continue levothyroxine
Hyperlipidemia--off statin, intolerant
Type 2 diabetes--Holding metformin--Sliding scale
Essential hypertension--Off [employer] nifedipine/Coreg
Trigeminal neuralgia--Continue Depakote
Overactive bladder--On tolterodine at home
Chronic pain/fibromyalgia/depression--Continue duloxetine, mirtazapine
Cough following diet from initial presentation--pt seen by [facility], rec GI given pt's complaints of GERD without official dx or prescribed tx, as well as reported difficulty/coughing/choking with solids more than liquids.
GI felt chronic intermittent dysphagia could be related to esophagitis or presbyesophagus. Recommend Protonix 40mg daily. Can also check outpt EGD/colonoscopy for iron deficiency.
Clinical deconditioning due to shock--PT/OT rec SNF
code status --Full code
DVT prophylaxis� heparin SQ
Dispo: SNF per PT OT eval
Anticipated Discharge: > 48 hours
Subjective/Interval History
-
Date of Service: January 16, 2024
pt without c/o--has BiPAP on from overnight
Objective Data
-
Labs:
Laboratory Results
01/16/24
04:40
WBC 10.5
Hgb 8.9 L
Hct 27.9 L
Plt Count 245
Sodium 135
Potassium 4.2
Chloride 96 L
Carbon Dioxide 33 H
BUN 41 H
Creatinine 1.4 H
Glucose 101 H
Calcium 8.0 L
Total Bilirubin 0.2
AST 38 H
ALT 303 H
Alkaline Phosphatase 79
Vital Signs:
max temp for 24 hours
01/15/24
11:33
Temp 97.9 F
Vital Signs
Temp Pulse Resp BP Pulse Ox
96.6 F L 53 13 119/53 99
01/16/24 07:20 01/16/24 07:48 01/16/24 07:46 01/16/24 07:48 01/16/24 07:46
I&O
01/15/24 01/16/24 01/17/24
06:59 06:59 06:59
Intake Total 1320 / 1320 720 / 720 50 / 50
Output Total 2400 / 2400 1600 / 1600
Balance -1080 / -1080 -880 / -880 50 / 50
Review of Systems
-
All other systems: Reviewed and negative
Physical Exam
-
General: Well Developed, Well Nourished and No Apparent Distress
HEENT: Normocephalic, Atraumatic and Other (BiPAP)
Respiratory: Clear to Auscultation; Negative Wheezes or Rhonchi
Cardiac: Regular Rhythm, S1/S2 and Bradycardic; Negative Murmur
GI: Soft, Nontender, Nondistended and Normal Bowel Sounds
Musculoskeletal: No Clubbing, No Cyanosis, No Edema and Other (left arm edema much improved)
Skin: Warm
Neuro: Awake and Alert
Psych: Calm
--- NOTE | 2024-01-16 09:55 | PTCARENOTE ---
phone reports provided to CHAZ CARRASCO from [facility]. [facility] around 1030.
[2024-01-16] MEDS: FIRVANQ 125 MG PO ×2 (11:08→22:38)
[2024-01-16] MEDS: MORPHINE SULFATE 1 MG IV ×2 (11:08→20:29)
[2024-01-16 11:39] LABS: Glucose - Point of Care 178 mg/dl (70-99)
--- NOTE | 2024-01-16 11:42 | W.PN.CD ---
Today's Communication / Plan
-
-Recommend changing to Lasix 40 mg PO daily, if okay with Nephrology.
Impression / Plan
-
Admitted 01/02/2024 with chief complaint of edema. Complex hospitalization with hypotension, shock, and abdominal pain. During this admission she has had an NC that is likely a Type II NC.
Acute HFrEF (EF 25-30%)/NICM:
-No acute change in coronary anatomy (see below for cath 01/11, med mgmt)--could be sepsis induced vs Takutsubo variant.
-LVEF 01/04/2024: Normal
-LVEF 01/07/2024: 25-30% with extensive anterior, lateral, and apical wall motion changes (Echo IV contrast); no sig valve disease noted
-Recommend changing to Lasix 40 mg PO daily, if okay with Nephrology.
-Continue Coreg 6.25 mg BID.
-Further GDMT limited by AR, renal function; to re-assess as she recovers.
-To repeat echo inpatient vs outpatient based on clinical course.
Paroxysmal Afib, with recurrence of A fib with RVR this admission
-Not on OAC as outpatient due to frequent falls, high bleeding risk
-Remains in sinus with IVCD noted on EKG (QT also prolonged, but in setting of IVCD)
-Continue current dose of Coreg.
-Continue PO amiodarone load to keep in SR during period of critical illness; 400mg BID for 2 weeks (through 01/27), then 200mg daily, then can plan to stop as outpatient, perhaps in 6-8 weeks.
Type II NC:
- Likely demand ischemia in the setting of critical illness and superimposed heart failure.
- Never had chest pain. EKG has new loss of anterior R waves and echo with impressive new wall motion changes
- Peak troponin 45.8 on 01/06/2024 (first troponin drawn during hospital stay)
- cath 01/11 does not show acute change in coronary anatomy
Known complex CAD and in past was not a CABG candidate:
- Records from [facility]/Dr Mejia 04/06/2023 reviewed
- Last cath seems to have been an Impella supported Left Main PCI with a HEMAL (4x12 Promus) in 08/2019
- Cath 08/2019: 50-60 LM, 80 LAD, 80 Ramus, 100 RCA
-Cath this admit 01/11 without acute ischemic disease . LM stent patent. RCA PERFECT BINDER FEEDER OFFBEARER
-Continue ASA 81 mg daily.
-Statin-intolerant.
AR:
-Nephrology following.
Improved resp insuf/hypotension/shock liver
-Management as per primary team.
- ID consult following
- UTI - RSBL
- BC negative ( note that first blood cultures on transfer to ICU were after abx
Acute anemia, not felt to be GI blood loss
- 1 unit PRBC on 01/07/2024
- Improving continue to monitor
Prior CVA
HTN
DM, type II
PAD, prior intervention
CARDIAC CATH 01/12/24
CONCLUSIONS
1. Right dominant circulation with chronic total occlusion of the proximal RCA (with collaterals from LAD); densely calcified 30% lesion in the proximal LAD, a long 30% lesion in the mid vessel and diffuse disease of the second diagonal which
parallels the LAD and supplies the apex but is too small for intervention, a small to medium size ramus that is diffusely diseased and not amenable to intervention and a 40% lesion in the origin of OM1.
2. Dilated left ventricle with severe global hypokinesis, perhaps worse in the apex with severe LV systolic dysfunction, LV ejection fraction 30%.
3. Severe mitral valve regurgitation.
4. Severely elevated filling pressures (LVEDP = 30 mmHg at 64.0 kg) with severe diastolic dysfunction (A wave to 45 mmHg).
5. No acute ischemic cause for sudden systolic dysfunction. Considerations include sepsis induced LV dysfunction versus Takotsubo variant versus postviral myocarditis (no history of URI, less likely).
Subjective:
No major events overnight.
Physical Exam
Vital Signs/Labs
Vital Signs
Temp Pulse Resp BP Pulse Ox
98.2 F 59 18 124/62 94
01/16/24 10:56 01/16/24 10:56 01/16/24 10:56 01/16/24 10:56 01/16/24 10:56
01/15/24 01/16/24 01/17/24
06:59 06:59 06:59
Actual Weight 64.2 kg 63.8 kg
01/16/24 04:40
01/16/24 04:40
PT 19.7 Sec (11.4-14.6) H 01/07/24 04:17
INR 1.69 01/07/24 04:17
APTT 35.9 Sec (23.4-35.0) H 01/07/24 04:17
Magnesium 1.5 mg/dl (1.6-2.3) L 01/16/24 04:40
01/02/24 01/12/24 01/14/24
15:25 04:33 14:05
Xdl-Y-Cdimzzzkeel Pept 7590 > 12502 Cancelled
LAB Results
01/13/24 01/13/24 01/14/24
12:30 18:32 14:05
Troponin I 1.310 H* 1.990 H* D Cancelled
Physical Exam
Constitutional: No acute distress and Comfortable
EENT: Anicteric
Cardiovascular: Rhythm & rate is regular, Systolic murmur absent, Pedal edema present (Trace) and S1S2 is normal
Respiratory: Respiratory effort normal and Lungs clear to auscul.
GI: Soft
Neuro/Psych: AO x 3
Other: Skin (Warm, dry)
Data Reviewed
-
Date of Service: January 16, 2024
EKG: Tracing Personally Visualized and interpreted (Telemetry: Sinus rhythm)
[2024-01-16] MEDS: NOVOLOG FLEXPEN-MODERATE RESISTANCE 1 UNITS SC (11:50)
[2024-01-16 16:33] LABS: Glucose - Point of Care 211 mg/dl (70-99)
[2024-01-16] MEDS: NOVOLOG FLEXPEN-MODERATE RESISTANCE 3 UNITS SC (16:33)
[2024-01-16] MEDS: DEPAKOTE (12 HR RELEASE) 500 MG PO (17:00)
--- NOTE | 2024-01-16 17:25 | W.PN.NEPH.PH ---
Today's Communication / Plan
-
change to po lasix
Assessment/Plan
-
Impression:
Acute kidney injury
Baseline CKD3a (1.1)
History of recurrent UTI (ESBL)
Coronary artery disease with previous stenting procedure
Paroxysmal atrial fibrillation
History of CVA
Hypothyroidism
Diabetes mellitus type II
History of subdural hematoma
Trigeminal neuralgia
Multiple left shoulder surgeries with septic left shoulder hardware removal
Bladder dysfunction
Chronic pain/ fibromyalgia
Depression
Restless leg syndrome
Anemia
Hyperkalemia
Metabolic acidosis
Elevated LFTs
Abdominal pain
Plan:
cr is up today at 1.4 from diuresis
wt improving, still higher than admit
ok to change to lasix po from tomorrow
wean O2 as tolerated
replace mg
AC for R UE DVT , monitor for hematuria
follow BMP
-
-
Date of Service: January 16, 2024
CC / HPI / ROS
-
Chief Complaint:
AR
History of Present Illness:
BP stable but soft
Cr up at 1.4,
wt is decreasing
LFTs -improving
Review of Systems:
on NC 2lit
pt denies sob or sp at rest
no fever
Labs
-
Labs:
WBC 10.5 10^3/uL (4.8-10.8) 01/16/24 04:40
RBC 3.29 10^6/uL (4.20-5.40) L 01/16/24 04:40
Hgb 8.9 g/dL (12.0-16.0) L 01/16/24 04:40
Hct 27.9 % (37.0-47.0) L 01/16/24 04:40
Plt Count 245 10^3/uL (130-400) 01/16/24 04:40
Sodium 135 mmol/L (135-145) 01/16/24 04:40
Potassium 4.2 mmol/L (3.5-5.1) 01/16/24 04:40
Chloride 96 mmol/L (98-107) L 01/16/24 04:40
Carbon Dioxide 33 mmol/L (22-30) H 01/16/24 04:40
BUN 41 mg/dl (7-17) H 01/16/24 04:40
Creatinine 1.4 mg/dL (0.6-1.0) H 01/16/24 04:40
eGFR 38.99 01/16/24 04:40
Glucose 101 mg/dl (70-99) H 01/16/24 04:40
Calcium 8.0 mg/dl (8.4-10.2) L 01/16/24 04:40
Phosphorus 4.7 mg/dl (2.5-4.5) H 01/15/24 05:07
Coa-T-Tgfrpbzblkr Pept Cancelled 01/14/24 14:05
Albumin 2.5 g/dl (3.5-5.0) L 01/16/24 04:40
Physical Exam
-
Vital Signs:
Vital Signs
Temp Pulse Resp BP Pulse Ox
98.5 F 56 18 103/49 99
01/16/24 15:00 01/16/24 15:00 01/16/24 15:00 01/16/24 15:00 01/16/24 15:00
Cardiovascular:: Regular rate and rhythm
Lung Excursion:: Normal (decreased BS)
Abdomen:: Nontender and Soft
Extremity Edema:: +1: Bilateral: (improving)
Lawton Catheter: No
[2024-01-16] MEDS: FOLVITE 1 MG PO (20:20)
[2024-01-16 21:40] LABS: Glucose - Point of Care 161 mg/dl (70-99)
[2024-01-16] MEDS: REMERON 15 MG PO (22:37)
[2024-01-16] MEDS: LANTUS 0.149999999999999994 UNITS SC (22:37)
[2024-01-17] VITALS (11 sets, daily range): BP systolic 72–133; BP diastolic 42–64; PULSE 2–87; BMI 25.4
--- NOTE | 2024-01-17 04:30 | PTCARENOTE ---
Pt's L midline dressing saturated with blood. midline flushed with + blood return. VAT team LUNA [place] at the bedside. dressing removed. new bio patch applied. area cleaned. skin tear L anterior elbow. dressing replaced and optifoam dressing applied
to skin tear. midline flushed with no blood return. VAT team aware. Pt aware.
[2024-01-17] MEDS: SYNTHROID 112 MCG PO (06:21)
[2024-01-17] MEDS: B COMPLEX w/VITAMIN C 1 CAPLET PO (07:25)
[2024-01-17] MEDS: PROTONIX 40 MG PO (07:26)
[2024-01-17] MEDS: ASPIR LOW (ENTERIC COATED) 81 MG PO (07:26)
[2024-01-17] MEDS: VITAMIN D3 (cholecalciferol) 50 MCG PO (07:26)
[2024-01-17] MEDS: CYMBALTA DELAYED RELEASE 60 MG PO (07:27)
[2024-01-17] MEDS: ELIQUIS 10 MG PO ×2 (07:27→20:20)
[2024-01-17] MEDS: PACERONE 400 MG PO ×2 (07:29→21:36)
[2024-01-17 08:00] LABS: Glucose - Point of Care 43 mg/dl (70-99)
[2024-01-17] MEDS: NOVOLOG FLEXPEN-MODERATE RESISTANCE SC (08:01)
[2024-01-17 08:02] LABS: % Eosinophils 4.4 % (0-6); % Immature Granulocytes 0.4 % (0-0.5); % Monocytes 6.8 % (1.7-9.3); % Neutrophils 62.4 % (42.2-75.2); Absolute Basophils 0.1 10^3/uL (0-0.2); Absolute Eosinophils 0.5 10^3/uL (0-0.7); Absolute Immature Granulocytes 0.1 10^3/uL (0-0.05); Absolute Lymphocytes 2.9 10^3/uL (1.2-3.4); Absolute Monocytes 0.8 10^3/uL (0.1-0.6); Absolute Neutrophils 7.3 10^3/uL (1.4-6.5); Hematocrit 30.6 % (37.0-47.0); Hemoglobin 9.8 g/dL (12.0-16.0); Mean Corpuscular Hgb 26.4 pg (27.0-31.0); Mean Corpuscular Volume 82.5 fL (81.0-99.0); Mean Platelet Volume 10.5 fL (7.4-10.4); Nucleated Red Blood Cells % 0 %; Platelet Count 293 10^3/uL (130-400); Red Blood Cell Count 3.71 10^6/uL (4.20-5.40); Red Cell Dist. Width 20.7 % (11.5-14.5); White Blood Cell Count 11.7 10^3/uL (4.8-10.8)
[2024-01-17 08:25] LABS: Glucose - Point of Care 31 mg/dl (70-99)
[2024-01-17] MEDS: COREG 6.25 MG PO (08:31)
[2024-01-17] MEDS: LASIX 40 MG PO (08:31)
[2024-01-17 08:42] LABS: ALT (SGPT) 281 U/L (0-35); AST (SGOT) 44 U/L (14-36); Albumin 2.8 g/dl (3.5-5.0); Alkaline Phosphatase 86 U/L (38-126); Blood Urea Nitrogen 42 mg/dl (7-17); Calcium 8.8 mg/dl (8.4-10.2); Carbon Dioxide 32 mmol/L (22-30); Chloride 96 mmol/L (98-107); Estimated Creatinine Clearance 28 ml/min; Glucose 82 mg/dl (70-99); Potassium 4.6 mmol/L (3.5-5.1); Sodium 136 mmol/L (135-145); Total Bilirubin 0.4 mg/dl (0.2-1.3); Total Protein 5.9 g/dl (6.3-8.2); eGFR 42.62
[2024-01-17 08:45] LABS: Glucose - Point of Care 55 mg/dl (70-99)
[2024-01-17] MEDS: DEXTROSE 50% SYRINGE 12.5 GRAMS IV (08:57)
[2024-01-17 09:24] LABS: Glucose - Point of Care 85 mg/dl (70-99)
--- NOTE | 2024-01-17 10:01 | VATNOTE ---
Called by nursing to assess midline, upon arrival 3W RN flushing line with + blood return. Site extremely bloody. Attempted dressing change but midline out 10 cm, still able to flush with good blood return. Measured Left arm circumference 10 cm
above the antecubital fossa at 29.5 cm. Circumference at time of insertion was 26.6 cm. Midline secured with steri strips and quickclot applied to insertion site with new sterile dressing. PCN notified of need for LUE peripheral vascular ultrasound
to r/o DVT or other clotting. Will exchange midline for new midline if no DVT noted on ultrasound.
--- NOTE | 2024-01-17 11:38 | CM ---
Reviewed chart, received call from Fabio at [facility] who stated that patient is current with their service. Phone# for [facility] [phone].
Plan: Case management will continue to follow and assist with discharge planning. Patient will likely need SNF when cleared for discharge.
[2024-01-17] MEDS: FIRVANQ 125 MG PO ×2 (12:17→22:49)
[2024-01-17] MEDS: NOVOLOG FLEXPEN-MODERATE RESISTANCE 3 UNITS SC ×2 (12:19→16:42)
[2024-01-17 12:20] LABS: Glucose - Point of Care 233 mg/dl (70-99)
--- NOTE | 2024-01-17 12:33 | W.PN.CD ---
Addendum entered and electronically signed by Scott Villavicencio MD 01/17/24 12:44:
-
-
Note Kamaljit started 01/14/2024 at DVT dosing. (Occlusive DVT R UE)
-
-
Original Note:
Today's Communication / Plan
-
Suggest:
-Continue Lasix but lower to 20 mg PO daily, Coreg 6.25 mg BID.
-Continue PO amiodarone load to keep in SR during period of critical illness; 400mg BID for 2 weeks (through 01/27), then 200mg daily, then can plan to stop as outpatient, perhaps in 6-8 weeks.
- Echo in 4-8 weeks. If EF still low then advance GDMT
Impression / Plan
-
Admitted 01/02/2024 with chief complaint of edema. Complex hospitalization with hypotension, shock, and abdominal pain. During this admission she has had troponin elevation
Troponin elevation this admit, peak trop 36.6
- Type II PA vs nonischemic myocardial injury from her systemic illness
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
Acute HFrEF (EF 25-30%)/NICM:
-LVEF 01/04/2024: Normal and on 01/07/2024: 25-30% with extensive anterior, lateral, and apical wall motion changes (Echo IV contrast); no sig valve disease noted
-Continue Lasix but lower from 40 to 20 mg PO daily, Coreg 6.25 mg BID.
-Further GDMT limited by AR, renal function; to re-assess as she recovers.
-To repeat echo inpatient vs outpatient based on clinical course.
Paroxysmal Afib, with recurrence of A fib with RVR this admission
-Not on OAC as outpatient due to frequent falls, high bleeding risk
-Remains in sinus with IVCD noted on EKG (QT also prolonged, but in setting of IVCD)
-Continue current dose of Coreg.
-Continue PO amiodarone load to keep in SR during period of critical illness; 400mg BID for 2 weeks (through 01/27), then 200mg daily, then can plan to stop as outpatient, perhaps in 6-8 weeks.
Known complex CAD and in past was not a CABG candidate:
- Records from [facility]/Dr Mejia 04/06/2023 reviewed
- Last cath seems to have been an Impella supported Left Main PCI with a HEMAL (4x12 Promus) in 08/2019
- Cath 08/2019: 50-60 LM, 80 LAD, 80 Ramus, 100 RCA
-Cath this admit 01/12/2024 => stable CAD => LM stent patent. RCA ABORIGINAL CEREMONIAL CELEBRANT
-Continue ASA 81 mg daily.
-Statin-intolerant.
AR:
-Nephrology following.
Improved resp insuf/hypotension/shock liver
-Management as per primary team.
- ID consult following
- UTI - RSBL
- BC negative ( note that first blood cultures on transfer to ICU were after abx
Acute anemia, not felt to be GI blood loss
- 1 unit PRBC on 01/07/2024
- Improving continue to monitor
Prior CVA
HTN
DM, type II
PAD, prior intervention
CARDIAC CATH 01/12/24
CONCLUSIONS
1. Right dominant circulation with chronic total occlusion of the proximal RCA (with collaterals from LAD); densely calcified 30% lesion in the proximal LAD, a long 30% lesion in the mid vessel and diffuse disease of the second diagonal which
parallels the LAD and supplies the apex but is too small for intervention, a small to medium size ramus that is diffusely diseased and not amenable to intervention and a 40% lesion in the origin of OM1.
2. Dilated left ventricle with severe global hypokinesis, perhaps worse in the apex with severe LV systolic dysfunction, LV ejection fraction 30%.
3. Severe mitral valve regurgitation.
4. Severely elevated filling pressures (LVEDP = 30 mmHg at 64.0 kg) with severe diastolic dysfunction (A wave to 45 mmHg).
5. No acute ischemic cause for sudden systolic dysfunction. Considerations include sepsis induced LV dysfunction versus Takotsubo variant versus postviral myocarditis (no history of URI, less likely).
Subjective:
No major events overnight.
Physical Exam
Vital Signs/Labs
Vital Signs
Temp Pulse Resp BP Pulse Ox
97.5 F 51 16 122/60 97
01/17/24 07:50 01/17/24 08:33 01/17/24 07:50 01/17/24 08:33 01/17/24 07:50
01/16/24 01/17/24 01/18/24
06:59 06:59 06:59
Actual Weight 63.8 kg 60.951 kg
01/17/24 06:37
01/17/24 06:37
PT 19.7 Sec (11.4-14.6) H 01/07/24 04:17
INR 1.69 01/07/24 04:17
APTT 35.9 Sec (23.4-35.0) H 01/07/24 04:17
Magnesium 2.0 mg/dl (1.6-2.3) 01/17/24 06:37
01/02/24 01/12/24 01/14/24
15:25 04:33 14:05
Ltu-R-Lsvyljkmjhu Pept 7590 > 11751 Cancelled
LAB Results
01/14/24
14:05
Troponin I Cancelled
Physical Exam
Constitutional: No acute distress
EENT: Anicteric
Cardiovascular: Rhythm & rate is regular and Pedal edema is absent
Respiratory: Respiratory effort normal
GI: Soft and Distention absent
Data Reviewed
-
Date of Service: January 17, 2024
--- NOTE | 2024-01-17 12:51 | W.PN.HOSP.TC ---
Today's Communication/Plan
-
DC lantus
cont PO lasix 20 mg daily
Assessment / Plan
Assessment / Plan
A/P:
# acute respiratory distress 01/13/24 for flash pulm edema from rapid aflutter, rapid response called
transferred to ICU 01/12, placed on BiPAP, improved and downgraded to tele 01/15
Cont BiPAP use at night and transition back to O2, wean off O2 during daytime
diurese per Card
# acute DVT right arm
midline removed, clot propagates into right IJ but is nonocclusive
Would cont Eliquis for 3 months given DVT in R IJ
# NSTEMI (TYPE II ID) this admission
# h/o CAD/multivessel disease and was refused bypass surgery at that time due to several risk factors
Follow up Echo 01/03 noted Severely reduced left ventricular systolic function, EF 25-30%. Mild pulmonary hypertension. Compared to the prior study earlier, EF is worsened
Trop peaked at 45.8
cardiac cath 01/11 without obvious cause for drop in EF
# paroxysmal afib
cont coreg, amio 400mg bid for 2 weeks (through 01/27), then 200mg daily then can plan to stop as outpatient in 6-8 weeks
not on anticoagulation as outpt given frequent falls
# AR on CKD stage 3
SCr 2.1 -> 1.3 today, (baseline 1.0
IV Lasix restarted by renal 01/12, adjusted to 20 mg PO daily 01/16
# Shock (with shock liver and lactic acidosis- resolved) likely related to ischemic colitis
CT AP with PO contrast was unrevealing, noted constipation
s/p Bicarb drip per renal
off pressor Levophed since 01/08
off Tylenol
Urine Cx from 01/06 grew ESBL Klebsiella
Finished ertapenem
Cont empiric PO vanco BID through 01/19 per ID note for h/o C diff colitis
# Acute on chronic (now) systolic heart failure
BNP elevated
Follow up Echo 01/03 noted Severely reduced left ventricular systolic function, EF 25-30%. Mild pulmonary hypertension. Compared to the prior study earlier, EF is worsened
s/p cardiac cath 01/11
BL LE US neg for DVT
IV Lasix has been switched to PO 20 mg daily
Cont GROVE WORKER Coreg 6.24 BID
GROVE WORKER nifedipine DC'ed
# Hyperkalemia
treated and resolved
# Hypomagnesemia
repleted
# anemia of chronic disease
s/p 1 unit PRBC transfusion
Hgb today 9,8
Iron studies, B12, folate levels reviewed and acceptable
Cont empiric Protonix 40 IV BID
# Hypocalcemia, repleted
# Hypothyroidism
Continue levothyroxine
# Hyperlipidemia
off statin, intolerant
# Type 2 diabetes
# Hypoglycemia
Pt was started with Lantus 15 units HS
Hold further insulin with hypoglycemia
Holding metformin during hospital stay
ISS
# Trigeminal neuralgia
Continue Depakote
# Overactive bladder
On tolterodine at home
# Chronic pain/fibromyalgia/depression
Continue duloxetine, mirtazapine
# Cough following diet from initial presentation
pt seen by [facility], rec GI given pt's complaints of GERD without official dx or prescribed tx, as well as reported difficulty/coughing/choking with solids more than liquids.
GI felt chronic intermittent dysphagia could be related to esophagitis or presbyesophagus. Recommend Protonix 40mg daily. Can also check outpt EGD/colonoscopy for iron deficiency.
# Clinical deconditioning due to shock
PT/OT rec SNF
code status --Full code
DVT prophylaxis� Eliquis
Dispo: SNF per PT OT eval
DW RN
DW Card
called to update, call not answered
Anticipated Discharge: 24 - 48 hours
Subjective/Interval History
-
Date of Service: January 17, 2024
Objective Data
-
Labs:
Laboratory Results
01/17/24
06:37
WBC 11.7 H
Hgb 9.8 L
Hct 30.6 L
Plt Count 293
Sodium 136
Potassium 4.6
Chloride 96 L
Carbon Dioxide 32 H
BUN 42 H
Creatinine 1.3 H
Glucose 82
Calcium 8.8
Total Bilirubin 0.4
AST 44 H
ALT 281 H
Alkaline Phosphatase 86
Vital Signs:
Vital Signs
Temp Pulse Resp BP Pulse Ox
36.6 C 54 16 133/47 95
01/17/24 12:34 01/17/24 12:34 01/17/24 12:34 01/17/24 12:34 01/17/24 12:34
I&O
01/16/24 01/17/24 01/18/24
06:59 06:59 06:59
Intake Total 720 / 720 1870 / 1870
Output Total 1600 / 1600 3650 / 3650
Balance -880 / -880 -1780 / -1780
--- NOTE | 2024-01-17 12:56 | W.PN.NEPH.PH ---
Today's Communication / Plan
-
Maintain Lasix
Follow BMP
Assessment/Plan
-
Impression:
Acute kidney injury
Baseline CKD3a (1.1)
History of recurrent UTI (ESBL)
Coronary artery disease with previous stenting procedure
Paroxysmal atrial fibrillation
History of CVA
Hypothyroidism
Diabetes mellitus type II
History of subdural hematoma
Trigeminal neuralgia
Multiple left shoulder surgeries with septic left shoulder hardware removal
Bladder dysfunction
Chronic pain/ fibromyalgia
Depression
Restless leg syndrome
Anemia
Hyperkalemia
Metabolic acidosis
Elevated LFTs
Abdominal pain
Plan:
cr is down today to 1.3 and remains grossly nonoliguric with urine output 2.8 L
wt improving
now on lasix 20mg daily
wean O2 as tolerated
replace mg
AC for R UE DVT , monitor for hematuria
follow BMP
-
-
Date of Service: January 17, 2024
CC / HPI / ROS
-
Chief Complaint:
AR
History of Present Illness:
BP stable
Cr up at 1.3,
wt is decreasing
LFTs -improving
Review of Systems:
on NC 2lit
pt denies sob or sp at rest
no fever
Labs
-
Labs:
WBC 11.7 10^3/uL (4.8-10.8) H 01/17/24 06:37
RBC 3.71 10^6/uL (4.20-5.40) L 01/17/24 06:37
Hgb 9.8 g/dL (12.0-16.0) L 01/17/24 06:37
Hct 30.6 % (37.0-47.0) L 01/17/24 06:37
Plt Count 293 10^3/uL (130-400) 01/17/24 06:37
Sodium 136 mmol/L (135-145) 01/17/24 06:37
Potassium 4.6 mmol/L (3.5-5.1) 01/17/24 06:37
Chloride 96 mmol/L (98-107) L 01/17/24 06:37
Carbon Dioxide 32 mmol/L (22-30) H 01/17/24 06:37
BUN 42 mg/dl (7-17) H 01/17/24 06:37
Creatinine 1.3 mg/dL (0.6-1.0) H 01/17/24 06:37
eGFR 42.62 01/17/24 06:37
Glucose 82 mg/dl (70-99) 01/17/24 06:37
Calcium 8.8 mg/dl (8.4-10.2) 01/17/24 06:37
Phosphorus 4.7 mg/dl (2.5-4.5) H 01/15/24 05:07
Elp-V-Sjkfdpkbdbs Pept Cancelled 01/14/24 14:05
Albumin 2.8 g/dl (3.5-5.0) L 01/17/24 06:37
Physical Exam
-
Vital Signs:
Vital Signs
Temp Pulse Resp BP Pulse Ox
97.9 F 54 16 133/47 95
01/17/24 12:34 01/17/24 12:34 01/17/24 12:34 01/17/24 12:34 01/17/24 12:34
Cardiovascular:: Regular rate and rhythm
Respiratory:: Bilateral: CTA
Lung Excursion:: Normal
Abdomen:: Nontender and Soft
Bowel Sounds:: Normal
Extremity Edema:: None: Bilateral:
Lawton Catheter: No
--- NOTE | 2024-01-17 15:02 | VATNOTE ---
Spoke with Dr. Munoz regarding need for extremity restriction of L arm after LUE peripheral vascular ultrasound. Per Dr. Munoz, OK to use L arm at this time, does not think the extremity needs to be restricted.
[2024-01-17 16:34] LABS: Glucose - Point of Care 206 mg/dl (70-99)
[2024-01-17] MEDS: DEPAKOTE (12 HR RELEASE) 500 MG PO (17:18)
[2024-01-17] MEDS: COREG PO (20:21)
[2024-01-17] MEDS: MORPHINE SULFATE 1 MG IV (21:34)
[2024-01-17] MEDS: FOLVITE 1 MG PO (21:35)
[2024-01-17] MEDS: REMERON 15 MG PO (21:35)
[2024-01-17] MEDS: FLUSH (NSS) 2 FLUSH IV (21:36)
[2024-01-17 21:53] LABS: Glucose - Point of Care 211 mg/dl (70-99)
[2024-01-18] VITALS (8 sets, daily range): BP systolic 92–133; BP diastolic 50–84; PULSE 2–80; BMI 25.4
[2024-01-18 03:52] LABS: Glucose - Point of Care 275 mg/dl (70-99)
[2024-01-18] MEDS: SYNTHROID 112 MCG PO (06:06)
[2024-01-18 06:55] LABS: Hematocrit 27.2 % (37.0-47.0); Hemoglobin 8.7 g/dL (12.0-16.0); Mean Corpuscular Hgb 26.3 pg (27.0-31.0); Mean Corpuscular Volume 82.2 fL (81.0-99.0); Platelet Count 288 10^3/uL (130-400); Red Blood Cell Count 3.31 10^6/uL (4.20-5.40); Red Cell Dist. Width 20.5 % (11.5-14.5); White Blood Cell Count 11.2 10^3/uL (4.8-10.8)
[2024-01-18 07:23] LABS: ALT (SGPT) 226 U/L (0-35); AST (SGOT) 35 U/L (14-36); Albumin 2.7 g/dl (3.5-5.0); Alkaline Phosphatase 134 U/L (38-126); Blood Urea Nitrogen 46 mg/dl (7-17); Calcium 8.9 mg/dl (8.4-10.2); Carbon Dioxide 29 mmol/L (22-30); Chloride 97 mmol/L (98-107); Estimated Creatinine Clearance 24 ml/min; Glucose 204 mg/dl (70-99); Potassium 4.7 mmol/L (3.5-5.1); Sodium 132 mmol/L (135-145); Total Bilirubin 0.3 mg/dl (0.2-1.3); Total Protein 5.4 g/dl (6.3-8.2); eGFR 35.89
[2024-01-18] MEDS: LASIX PO (07:39)
[2024-01-18] MEDS: PROTONIX 40 MG PO (07:40)
[2024-01-18] MEDS: ELIQUIS 10 MG PO ×2 (07:40→20:57)
[2024-01-18] MEDS: B COMPLEX w/VITAMIN C 1 CAPLET PO (07:40)
[2024-01-18] MEDS: CYMBALTA DELAYED RELEASE 60 MG PO (07:40)
[2024-01-18] MEDS: VITAMIN D3 (cholecalciferol) 50 MCG PO (07:40)
[2024-01-18] MEDS: ASPIR LOW (ENTERIC COATED) 81 MG PO (07:40)
[2024-01-18] MEDS: PACERONE 400 MG PO ×2 (07:40→20:56)
[2024-01-18 08:02] LABS: Glucose - Point of Care 189 mg/dl (70-99)
[2024-01-18] MEDS: NOVOLOG FLEXPEN-MODERATE RESISTANCE 1 UNITS SC ×2 (08:02→16:38)
--- NOTE | 2024-01-18 08:46 | W.PN.CD ---
Today's Communication / Plan
-
Lasix lowered to 20mg daily starting today: trend Cr and weight
lower coreg to 3.125mg bid with hold parameters
-metoprolol allergy noted
Impression / Plan
-
Admitted 01/02/2024 with chief complaint of edema. Complex hospitalization with hypotension, shock, and abdominal pain. During this admission she has had troponin elevation
Troponin elevation this admit, peak 45.8 on 01/05
- Type II HI vs nonischemic myocardial injury from her systemic illness
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
Acute HFrEF (EF 25-30%)/NICM:
-LVEF 01/04/2024: Normal and on 01/07/2024: 25-30% with extensive anterior, lateral, and apical wall motion changes (Echo IV contrast); no sig valve disease noted
-Lasix lowered to 20mg daily starting today: trend Cr and weight
-lower coreg to 3.125mg bid with hold parameters
-metoprolol allergy noted
-Further GDMT limited by AR, renal function; to re-assess as she recovers.
-repeat echo at approx 4 weeks outpatient
Paroxysmal Afib, with recurrence of A fib with RVR this admission
-Not on OAC as outpatient due to frequent falls, but now on OAC for acute DVT
-Remains in sinus with IVCD noted on EKG (QT also prolonged, but in setting of IVCD)
-Continue Coreg.
-Continue PO amiodarone load to keep in SR during period of critical illness; 400mg BID for 2 weeks (through 01/27), then 200mg daily, then can plan to stop as outpatient, perhaps in 6-8 weeks.
Known complex CAD and in past was not a CABG candidate:
- Records from [facility]/Dr Mejia 04/06/2023 reviewed
- Last cath seems to have been an Impella supported Left Main PCI with a HEMAL (4x12 Promus) in 08/2019
- Cath 08/2019: 50-60 LM, 80 LAD, 80 Ramus, 100 RCA
-Cath this admit 01/12/2024 => stable CAD => LM stent patent. RCA HOUSEKEEPING LEAD
-Continue ASA 81 mg daily.
-Statin-intolerant.
AR:
-Nephrology following.
Improved resp insuf/hypotension/shock liver
-Management as per primary team.
- ID consult following
- UTI - RSBL
- BC negative ( note that first blood cultures on transfer to ICU were after abx
Acute anemia, not felt to be GI blood loss
- 1 unit PRBC on 01/07/2024
- Improving continue to monitor
Prior CVA
HTN
DM, type II
PAD, prior intervention
CARDIAC CATH 01/12/24
CONCLUSIONS
1. Right dominant circulation with chronic total occlusion of the proximal RCA (with collaterals from LAD); densely calcified 30% lesion in the proximal LAD, a long 30% lesion in the mid vessel and diffuse disease of the second diagonal which
parallels the LAD and supplies the apex but is too small for intervention, a small to medium size ramus that is diffusely diseased and not amenable to intervention and a 40% lesion in the origin of OM1.
2. Dilated left ventricle with severe global hypokinesis, perhaps worse in the apex with severe LV systolic dysfunction, LV ejection fraction 30%.
3. Severe mitral valve regurgitation.
4. Severely elevated filling pressures (LVEDP = 30 mmHg at 64.0 kg) with severe diastolic dysfunction (A wave to 45 mmHg).
5. No acute ischemic cause for sudden systolic dysfunction. Considerations include sepsis induced LV dysfunction versus Takotsubo variant versus postviral myocarditis (no history of URI, less likely).
Subjective:
She denies CP, SOB.
Physical Exam
Vital Signs/Labs
Vital Signs
Temp Pulse Resp BP Pulse Ox
98.4 F 51 14 95/51 97
01/18/24 07:28 01/18/24 07:39 01/18/24 07:28 01/18/24 07:39 01/18/24 07:28
01/17/24 01/18/24 01/19/24
06:59 06:59 06:59
Actual Weight 60.951 kg 60.895 kg
01/18/24 06:20
01/18/24 06:20
PT 19.7 Sec (11.4-14.6) H 01/07/24 04:17
INR 1.69 01/07/24 04:17
APTT 35.9 Sec (23.4-35.0) H 01/07/24 04:17
Magnesium 2.0 mg/dl (1.6-2.3) 01/17/24 06:37
01/02/24 01/12/24 01/14/24
15:25 04:33 14:05
Oim-H-Zqhfvsqduwx Pept 7590 > 93512 Cancelled
Physical Exam
Constitutional: No acute distress and Comfortable
EENT: Moist mucous membranes
Cardiovascular: Rhythm & rate is regular, Pedal edema is absent, JVD pressure is normal and Systolic murmur absent
Respiratory: Respiratory effort normal and Lungs clear to auscul.
GI: Soft and Distention absent
Neuro/Psych: Alert and Oriented
Data Reviewed
-
Date of Service: January 18, 2024
EKG: Other (Tele: SB 50s, PVC's)
Labs: Labs Reviewed by me
[2024-01-18] MEDS: COREG 3.125 MG PO ×2 (09:35→20:57)
[2024-01-18] MEDS: FIRVANQ 125 MG PO ×2 (11:06→22:38)
[2024-01-18 11:42] LABS: Glucose - Point of Care 204 mg/dl (70-99)
--- NOTE | 2024-01-18 11:45 | W.PN.HOSP.TC ---
Today's Communication/Plan
-
see AP
Monitor BP
Assessment / Plan
Assessment / Plan
A/P:
# acute respiratory distress 01/13/24 for flash pulm edema from rapid aflutter, rapid response called
transferred to ICU 01/12, placed on BiPAP, improved and downgraded to tele 01/15
Cont BiPAP at night and transitioned to O2, weaned off O2 during daytime
diurese per Card
# acute DVT right arm
midline removed, clot propagates into right IJ but is nonocclusive
Would cont Eliquis for 3 months given DVT in R IJ
# NSTEMI (TYPE II UT) this admission
# h/o CAD/multivessel disease and was refused bypass surgery at that time due to several risk factors
Follow up Echo 01/03 noted Severely reduced left ventricular systolic function, EF 25-30%. Mild pulmonary hypertension. Compared to the prior study earlier, EF is worsened
Trop peaked at 45.8
cardiac cath 01/11 noted chronic total occlusion of the proximal RCA and small lesions in proximal LAD/second diagonal- too small for intervention, no obvious cause for drop in EF
# paroxysmal afib
cont coreg, amio 400mg bid for 2 weeks (through 01/27), then 200mg daily then can plan to stop as outpatient in 6-8 weeks
not on anticoagulation as outpt given frequent falls
# AR on CKD stage 3
SCr 2.1 -> 1.5 today, (baseline 1.0)
IV Lasix restarted by renal 01/12, adjusted to 20 mg PO daily 01/16
# Shock likely related to ischemic colitis
# Shock liver and lactic acidosis- resolved
CT AP with PO contrast was unrevealing, noted constipation
s/p Bicarb drip per renal
off pressor Levophed since 01/08
off Tylenol
Urine Cx from 01/06 grew ESBL Klebsiella
Finished ertapenem
Cont empiric PO vanco BID through 01/19 per ID note for h/o C diff colitis
# Acute on chronic (now) systolic heart failure
BNP elevated
Follow up Echo 01/03 noted Severely reduced left ventricular systolic function, EF 25-30%. Mild pulmonary hypertension. Compared to the prior study earlier, EF is worsened
s/p cardiac cath 01/11
BL LE US neg for DVT
IV Lasix has been switched to PO 20 mg daily
MAILROOM ASSOCIATE Coreg adjusted to 3.125 mg BID
MAILROOM ASSOCIATE nifedipine DC'ed
# New hypotension 01/17, ? from bleeding from skin lesion
MAILROOM ASSOCIATE Coreg adjusted to 3.125 mg BID
Lasix with holding parameter
Monitor BP closely and consider IVF bolus for BP support if needed
# Hyperkalemia
treated and resolved
# Hypomagnesemia
repleted
# anemia of chronic disease
s/p 1 unit PRBC transfusion
Hgb today 8.7
Iron studies, B12, folate levels reviewed and acceptable
Cont empiric Protonix 40 IV BID
# Hypocalcemia, repleted
# Hypothyroidism
Continue levothyroxine
# Hyperlipidemia
off statin, intolerant
# Type 2 diabetes
# Hypoglycemia, resolved
Restart Lantus 5 units HS
Holding metformin during hospital stay
ISS
# Trigeminal neuralgia
Continue Depakote
# Overactive bladder
On tolterodine at home
# Chronic pain/fibromyalgia/depression
Continue duloxetine, mirtazapine
# Cough following diet from initial presentation
pt seen by [facility], rec GI given pt's complaints of GERD without official dx or prescribed tx, as well as reported difficulty/coughing/choking with solids more than liquids.
GI felt chronic intermittent dysphagia could be related to esophagitis or presbyesophagus. Recommend Protonix 40mg daily. Can also check outpt EGD/colonoscopy for iron deficiency.
# Clinical deconditioning due to shock
PT/OT rec SNF
code status --Full code
DVT prophylaxis� Eliquis
Dispo: SNF per PT OT eval
DW RN
DW Renal
Anticipated Discharge: 24 - 48 hours
Subjective/Interval History
-
Date of Service: January 18, 2024
Objective Data
-
Labs:
Laboratory Results
01/18/24
06:20
WBC 11.2 H
Hgb 8.7 L
Hct 27.2 L
Plt Count 288
Sodium 132 L
Potassium 4.7
Chloride 97 L
Carbon Dioxide 29
BUN 46 H
Creatinine 1.5 H
Glucose 204 H
Calcium 8.9
Total Bilirubin 0.3
AST 35
ALT 226 H
Alkaline Phosphatase 134 H
Vital Signs:
Vital Signs
Temp Pulse Resp BP Pulse Ox
36.6 C 61 16 92/52 92
01/18/24 11:14 01/18/24 11:14 01/18/24 11:14 01/18/24 11:14 01/18/24 11:14
I&O
01/17/24 01/18/24 01/19/24
06:59 06:59 06:59
Intake Total 1870 / 1870 1500 / 1500
Output Total 3650 / 3650 1210 / 1210
Balance -1780 / -1780 290 / 290
--- NOTE | 2024-01-18 11:49 | W.PN.NEPH.PH ---
Today's Communication / Plan
-
holding lasix re: low bp
follow up bmp in am
if sbp remains below 100 will provid fluid bolus
Assessment/Plan
-
Impression:
Acute kidney injury
Baseline CKD3a (1.1)
History of recurrent UTI (ESBL)
Coronary artery disease with previous stenting procedure
Paroxysmal atrial fibrillation
History of CVA
Hypothyroidism
Diabetes mellitus type II
History of subdural hematoma
Trigeminal neuralgia
Multiple left shoulder surgeries with septic left shoulder hardware removal
Bladder dysfunction
Chronic pain/ fibromyalgia
Depression
Restless leg syndrome
Anemia
Hyperkalemia
Metabolic acidosis
Elevated LFTs
Abdominal pain
Plan:
cr is at 1.5 and remains grossly nonoliguric with urine output 1210 plus incontinence
creatinine bump likely due to hypotension overnight
hold coreg and lasix today
if hypotenison persists will provide fluid bolus
AC for R UE DVT , monitor for hematuria
follow BMP
-
-
Date of Service: January 18, 2024
CC / HPI / ROS
-
Chief Complaint:
AR
History of Present Illness:
BP labile overnight
Cr up at 1.5
hgb down (bleeding from midline last pm)
LFTs -improving
Review of Systems:
on NC 2lit
pt denies sob or sp at rest
no fever
Labs
-
Labs:
WBC 11.2 10^3/uL (4.8-10.8) H 01/18/24 06:20
RBC 3.31 10^6/uL (4.20-5.40) L 01/18/24 06:20
Hgb 8.7 g/dL (12.0-16.0) L 01/18/24 06:20
Hct 27.2 % (37.0-47.0) L 01/18/24 06:20
Plt Count 288 10^3/uL (130-400) 01/18/24 06:20
Sodium 132 mmol/L (135-145) L 01/18/24 06:20
Potassium 4.7 mmol/L (3.5-5.1) 01/18/24 06:20
Chloride 97 mmol/L (98-107) L 01/18/24 06:20
Carbon Dioxide 29 mmol/L (22-30) 01/18/24 06:20
BUN 46 mg/dl (7-17) H 01/18/24 06:20
Creatinine 1.5 mg/dL (0.6-1.0) H 01/18/24 06:20
eGFR 35.89 01/18/24 06:20
Glucose 204 mg/dl (70-99) H 01/18/24 06:20
Calcium 8.9 mg/dl (8.4-10.2) 01/18/24 06:20
Phosphorus 4.7 mg/dl (2.5-4.5) H 01/15/24 05:07
Ppf-D-Jglrqdelnsk Pept Cancelled 01/14/24 14:05
Albumin 2.7 g/dl (3.5-5.0) L 01/18/24 06:20
Physical Exam
-
Vital Signs:
Vital Signs
Temp Pulse Resp BP Pulse Ox
98 F 61 16 92/52 92
01/18/24 11:14 01/18/24 11:14 01/18/24 11:14 01/18/24 11:14 01/18/24 11:14
Cardiovascular:: Regular rate and rhythm
Respiratory:: Bilateral: Coarse
Lung Excursion:: Normal
Abdomen:: Nontender and Soft
Bowel Sounds:: Normal
Extremity Edema:: +1: Bilateral:
Lawton Catheter: No
[2024-01-18] MEDS: NOVOLOG FLEXPEN-MODERATE RESISTANCE 3 UNITS SC (13:01)
[2024-01-18 16:38] LABS: Glucose - Point of Care 173 mg/dl (70-99)
[2024-01-18] MEDS: DEPAKOTE (12 HR RELEASE) 500 MG PO (17:00)
[2024-01-18] MEDS: SENOKOT-S 1 TABLET PO (17:04)
--- NOTE | 2024-01-18 17:17 | CM ---
Spoke with attending who stated that patient may be cleared for discharge tomorrow. Will confirm bed availability with [facility].
Plan: Case management will continue to follow and assist with discharge planning. SNF when stable.
[2024-01-18] MEDS: REMERON 15 MG PO (20:56)
[2024-01-18] MEDS: FOLVITE 1 MG PO (20:57)
[2024-01-18 21:44] LABS: Glucose - Point of Care 237 mg/dl (70-99)
[2024-01-18] MEDS: LANTUS 0.0500000000000000028 UNITS SC (22:38)
[2024-01-18] MEDS: MORPHINE SULFATE 1 MG IV (22:44)
[2024-01-18] MEDS: FLUSH (NSS) 2 FLUSH IV (22:44)
[2024-01-19] VITALS (8 sets, daily range): BP systolic 94–162; BP diastolic 46–78; BMI 25.4
[2024-01-19] MEDS: SYNTHROID 112 MCG PO (05:36)
[2024-01-19 06:17] LABS: Hematocrit 25.8 % (37.0-47.0); Hemoglobin 8.2 g/dL (12.0-16.0); Mean Corp Hgb Conc. 31.8 g/dL (33.0-37.0); Mean Corpuscular Hgb 26.6 pg (27.0-31.0); Mean Corpuscular Volume 83.8 fL (81.0-99.0); Mean Platelet Volume 10.9 fL (7.4-10.4); Platelet Count 262 10^3/uL (130-400); Red Blood Cell Count 3.08 10^6/uL (4.20-5.40); Red Cell Dist. Width 20.6 % (11.5-14.5); White Blood Cell Count 9.6 10^3/uL (4.8-10.8)
[2024-01-19 06:44] LABS: ALT (SGPT) 183 U/L (0-35); AST (SGOT) 35 U/L (14-36); Albumin 2.6 g/dl (3.5-5.0); Alkaline Phosphatase 109 U/L (38-126); Blood Urea Nitrogen 50 mg/dl (7-17); Carbon Dioxide 28 mmol/L (22-30); Chloride 102 mmol/L (98-107); Estimated Creatinine Clearance 23 ml/min; Glucose 162 mg/dl (70-99); Potassium 4.8 mmol/L (3.5-5.1); Sodium 134 mmol/L (135-145); Total Bilirubin 0.3 mg/dl (0.2-1.3); Total Protein 5.3 g/dl (6.3-8.2); eGFR 33.22
[2024-01-19] MEDS: PROTONIX 40 MG PO (08:07)
[2024-01-19] MEDS: B COMPLEX w/VITAMIN C 1 CAPLET PO (08:07)
[2024-01-19] MEDS: ASPIR LOW (ENTERIC COATED) 81 MG PO (08:07)
[2024-01-19] MEDS: COREG 3.125 MG PO ×2 (08:07→19:25)
[2024-01-19] MEDS: ELIQUIS 10 MG PO ×2 (08:09→19:26)
[2024-01-19] MEDS: VITAMIN D3 (cholecalciferol) 50 MCG PO (08:10)
[2024-01-19] MEDS: PACERONE 400 MG PO ×2 (08:10→19:30)
[2024-01-19] MEDS: LASIX 20 MG PO (08:10)
[2024-01-19] MEDS: CYMBALTA DELAYED RELEASE 60 MG PO (08:10)
[2024-01-19 08:15] LABS: Glucose - Point of Care 160 mg/dl (70-99)
[2024-01-19] MEDS: NOVOLOG FLEXPEN-MODERATE RESISTANCE 1 UNITS SC (08:15)
--- NOTE | 2024-01-19 08:48 | W.PN.CD ---
Today's Communication / Plan
-
resp status stable. Monitor with rise in creatinine and reduction in diuretic'
creatinine rising. - diuretic and lwoer BPs may contribute. Coreg was lowereed adn diuretic held 01/18/24. Creatinine 1.6. Nephrology following. Ja already received lasix 20mg this morning
ECG
Hb trending down. may require additonal PRBC
Impression / Plan
-
Admitted 01/02/2024 with chief complaint of edema. Complex hospitalization with hypotension, shock, and abdominal pain. During this admission she has had troponin elevation
Troponin elevation this admit, peak 45.8 on 01/05
- Type II CT vs nonischemic myocardial injury from her systemic illness
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
Acute HFrEF (EF 25-30%)/NICM:
-LVEF 01/04/2024: Normal and on 01/07/2024: 25-30% with extensive anterior, lateral, and apical wall motion changes (Echo IV contrast); no sig valve disease noted
-Lasix lowered to 20mg daily starting today: trend Cr and weight
-lower coreg to 3.125mg bid with hold parameters
-metoprolol allergy noted
-Further GDMT limited by , renal functionv and BP
-repeat echo at approx 4 weeks outpatient
Paroxysmal Afib, with recurrence of A fib with RVR this admission
-Not on OAC as outpatient due to frequent falls, but now on OAC for acute DVT
-Remains in sinus with IVCD noted on EKG (QT also prolonged, but in setting of IVCD)
-Continue Coreg.
-Continue PO amiodarone load to keep in SR during period of critical illness; 400mg BID for 2 weeks (through 01/27), then 200mg daily, then can plan to stop as outpatient, perhaps in 6-8 weeks.
Known complex CAD and in past was not a CABG candidate:
- Records from [facility]/Dr Mejia 04/06/2023 reviewed
- Last cath seems to have been an Impella supported Left Main PCI with a HEMAL (4x12 Promus) in 08/2019
- Cath 08/2019: 50-60 LM, 80 LAD, 80 Ramus, 100 RCA
-Cath this admit 01/12/2024 => stable CAD => LM stent patent. 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
-Continue ASA 81 mg daily.
-Statin-intolerant.
AR:- had gone up to 2.3 and then improved but npow trending back up to 1.6. Monitor . Lasix held and reduced 01/18. some lower BP may contribute
-Nephrology following.
Improved resp insuf/hypotension/shock liver
-Management as per primary team.
- ID consult following
- UTI - RSBL
- BC negative ( note that first blood cultures on transfer to ICU were after abx
Acute anemia,
- 1 unit PRBC on 01/07/2024
- trending down. renetta require addtional PRBC
Prior CVA
HTN
DM, type II
PAD, prior intervention
CARDIAC CATH 01/12/24
CONCLUSIONS
1. Right dominant circulation with chronic total occlusion of the proximal RCA (with collaterals from LAD); densely calcified 30% lesion in the proximal LAD, a long 30% lesion in the mid vessel and diffuse disease of the second diagonal which
parallels the LAD and supplies the apex but is too small for intervention, a small to medium size ramus that is diffusely diseased and not amenable to intervention and a 40% lesion in the origin of OM1.
2. Dilated left ventricle with severe global hypokinesis, perhaps worse in the apex with severe LV systolic dysfunction, LV ejection fraction 30%.
3. Severe mitral valve regurgitation.
4. Severely elevated filling pressures (LVEDP = 30 mmHg at 64.0 kg) with severe diastolic dysfunction (A wave to 45 mmHg).
5. No acute ischemic cause for sudden systolic dysfunction. Considerations include sepsis induced LV dysfunction versus Takotsubo variant versus postviral myocarditis (no history of URI, less likely).
Subjective:
She denies CP, SOB.
Physical Exam
Vital Signs/Labs
Vital Signs
Temp Pulse Resp BP Pulse Ox
98.2 F 61 18 162/64 95
01/19/24 07:00 01/19/24 08:10 01/19/24 07:00 01/19/24 08:10 01/19/24 07:00
01/18/24 01/19/24 01/20/24
06:59 06:59 06:59
Actual Weight 60.895 kg 60.838 kg
01/19/24 05:53
01/19/24 05:53
PT 19.7 Sec (11.4-14.6) H 01/07/24 04:17
INR 1.69 01/07/24 04:17
APTT 35.9 Sec (23.4-35.0) H 01/07/24 04:17
Magnesium 2.0 mg/dl (1.6-2.3) 01/17/24 06:37
01/02/24 01/12/24 01/14/24
15:25 04:33 14:05
Cqo-[id number]-[id number] Pept 7590 > 73286 Cancelled
Physical Exam
Cardiovascular: Rhythm & rate is regular
Respiratory: Respiratory effort normal
GI: Soft
Neuro/Psych: Alert
Data Reviewed
-
Date of Service: January 19, 2024
Medical Decision Making: Reviewed Test Results
EKG: Report Reviewed by me
Medical Tests (PFT, Pathology etc): Report Reviewed by me
Labs: Labs Reviewed by me
[2024-01-19] MEDS: FIRVANQ 125 MG PO ×2 (10:49→22:06)
--- NOTE | 2024-01-19 11:45 | W.PN.HOSP.TC ---
Today's Communication/Plan
-
see A/P
Assessment / Plan
Assessment / Plan
A/P:
# acute respiratory distress 01/13/24 for flash pulm edema from rapid aflutter, rapid response called
transferred to ICU 01/12, placed on BiPAP, improved and downgraded to tele 01/15
Cont BiPAP at night and transitioned to O2, weaned off O2 during daytime
diurese per Card
# acute DVT right arm
midline removed, clot propagates into right IJ but is nonocclusive
Would cont Eliquis for 3 months given DVT in R IJ
# NSTEMI (TYPE II [place]) this admission
# h/o CAD/multivessel disease and was refused bypass surgery at that time due to several risk factors
Follow up Echo 01/03 noted Severely reduced left ventricular systolic function, EF 25-30%. Mild pulmonary hypertension. Compared to the prior study earlier, EF is worsened
Trop peaked at 45.8
cardiac cath 01/11 noted chronic total occlusion of the proximal RCA and small lesions in proximal LAD/second diagonal- too small for intervention, no obvious cause for drop in EF
# paroxysmal afib
cont coreg 3.125 with holding parameter
Cont amio 400mg bid for 2 weeks (through 01/27) then 200mg daily and can stop outpatient in 6-8 weeks
was not on anticoagulation as outpt given frequent falls
# AR on CKD stage 3
SCr 2.1 -> 1.6 today, (baseline 1.0)
s/p IV Lasix, now on PO lasix 20 mg PO daily with hold parameter
# Shock likely related to ischemic colitis, resolved
# Shock liver and lactic acidosis- resolved
CT AP with PO contrast was unrevealing, noted constipation
s/p Bicarb drip per renal
off pressor Levophed since 01/08
off Tylenol
Urine Cx from 01/06 grew ESBL Klebsiella
Finished ertapenem
Cont empiric PO vanco BID through 01/19 per ID note for h/o C diff colitis
# Acute on chronic (now) systolic heart failure
BNP elevated
Follow up Echo 01/03 noted Severely reduced left ventricular systolic function, EF 25-30%. Mild pulmonary hypertension. Compared to the prior study earlier, EF is worsened
s/p cardiac cath 01/11
BL LE US neg for DVT
IV Lasix has been switched to PO 20 mg daily
CHOIR ACCOMPANIST Coreg adjusted to 3.125 mg BID
CHOIR ACCOMPANIST nifedipine DC'ed
# New hypotension 01/17, ? from bleeding from skin lesion
CHOIR ACCOMPANIST Coreg adjusted to 3.125 mg BID
Lasix with holding parameter
Monitor BP closely and consider IVF bolus for BP support if needed
# Hyperkalemia
treated and resolved
# Hypomagnesemia
repleted
# anemia of chronic disease
s/p 1 unit PRBC transfusion
Hgb today 8.2, Monitor Hgb
Iron studies, B12, folate levels reviewed and acceptable
Cont empiric Protonix 40 IV BID
# Hypocalcemia, repleted
# Hypothyroidism
Continue levothyroxine
# Hyperlipidemia
off statin, intolerant
# Type 2 diabetes
# Hypoglycemia, resolved
Restarted Lantus 5 units HS
Holding metformin during hospital stay
ISS
# Trigeminal neuralgia
Continue Depakote
# Overactive bladder
On tolterodine at home
# Chronic pain/fibromyalgia/depression
Continue duloxetine, mirtazapine
# Cough following diet from initial presentation
pt seen by [facility], rec GI given pt's complaints of GERD without official dx or prescribed tx, as well as reported difficulty/coughing/choking with solids more than liquids.
GI felt chronic intermittent dysphagia could be related to esophagitis or presbyesophagus. Recommend Protonix 40mg daily. Can also check outpt EGD/colonoscopy for iron deficiency.
# Clinical deconditioning due to shock
PT/OT rec SNF
code status --Full code
DVT prophylaxis� Eliquis
Dispo: SNF per PT OT eval
DW RN
Anticipated Discharge: 24 - 48 hours
Subjective/Interval History
-
Date of Service: January 19, 2024
Objective Data
-
Labs:
Laboratory Results
01/19/24
05:53
WBC 9.6
Hgb 8.2 L
Hct 25.8 L
Plt Count 262
Sodium 134 L
Potassium 4.8
Chloride 102
Carbon Dioxide 28
BUN 50 H
Creatinine 1.6 H
Glucose 162 H
Calcium 9.0
Total Bilirubin 0.3
AST 35
ALT 183 H
Alkaline Phosphatase 109
Vital Signs:
Vital Signs
Temp Pulse Resp BP Pulse Ox
36.8 C 61 18 162/64 95
01/19/24 07:00 01/19/24 08:10 01/19/24 07:00 01/19/24 08:10 01/19/24 07:00
I&O
01/18/24 01/19/24 01/20/24
06:59 06:59 06:59
Intake Total 1500 / 1500 800 / 800
Output Total 1210 / 1210 2600 / 2600
Balance 290 / 290 -1800 / -1800
Review of Systems
-
All other systems: Reviewed and negative
Physical Exam
-
General: Well Developed, Well Nourished, No Apparent Distress, Comfortable and Appears Chronically Ill
HEENT: Normocephalic and Atraumatic
Respiratory: Clear to Auscultation and Non Labored Respirations; Negative Accessory Resp Muscle Use
Cardiac: Regular Rhythm, S1/S2 and Bradycardic; Negative Murmur
GI: Soft, Nontender, Nondistended and Normal Bowel Sounds
Musculoskeletal: No Clubbing, No Cyanosis, No Edema and Other (left arm edema much improved)
Skin: Warm
Neuro: Awake and Alert
Psych: Calm and Intact Judgement/Insight
Data Reviewed
-
Diagnostic Radiology: Image personally visualized and interpreted and Report Reviewed by me
CT Scan: Report Reviewed by me
Medical Tests (Nuc Med, Echo etc): Report Reviewed by me (echo)
Labs: Labs Reviewed by me
[2024-01-19 12:10] LABS: Glucose - Point of Care 291 mg/dl (70-99)
[2024-01-19] MEDS: NOVOLOG FLEXPEN-MODERATE RESISTANCE 5 UNITS SC (12:24)
--- NOTE | 2024-01-19 13:34 | CM ---
Reviewed chart, called [facility] to confirm bed availability. Spoke with Minda in admissions who requested updated clinicals. Sent all information through [employer].
Plan: Case management will continue to follow and assist with discharge planning. Hopeful transfer to [facility] upon medical clearance.
--- NOTE | 2024-01-19 15:20 | W.PN.NEPH.PH ---
Today's Communication / Plan
-
hold lasix
follow labs
Assessment/Plan
-
Impression:
Acute kidney injury
Baseline CKD3a (1.1)
History of recurrent UTI (ESBL)
Coronary artery disease with previous stenting procedure
Paroxysmal atrial fibrillation
History of CVA
Hypothyroidism
Diabetes mellitus type II
History of subdural hematoma
Trigeminal neuralgia
Multiple left shoulder surgeries with septic left shoulder hardware removal
Bladder dysfunction
Chronic pain/ fibromyalgia
Depression
Restless leg syndrome
Anemia
Hyperkalemia
Metabolic acidosis
Elevated LFTs
Abdominal pain
Plan:
cr is at 1.6 and remains grossly nonoliguric with urine output 2600
BP labile, wt stable
hold lasix till cr is stabilized
AC for R UE DVT
follow BMP
-
-
Date of Service: January 19, 2024
CC / HPI / ROS
-
Chief Complaint:
AR
History of Present Illness:
BP labile with out hypotension
Cr up at 1.6
hgb down 8.2 ( had bleeding from midline last pm)
Review of Systems:
on RA
pt denies sob or sp at rest
no fever
Labs
-
Labs:
WBC 9.6 10^3/uL (4.8-10.8) 01/19/24 05:53
RBC 3.08 10^6/uL (4.20-5.40) L 01/19/24 05:53
Hgb 8.2 g/dL (12.0-16.0) L 01/19/24 05:53
Hct 25.8 % (37.0-47.0) L 01/19/24 05:53
Plt Count 262 10^3/uL (130-400) 01/19/24 05:53
Sodium 134 mmol/L (135-145) L 01/19/24 05:53
Potassium 4.8 mmol/L (3.5-5.1) 01/19/24 05:53
Chloride 102 mmol/L (98-107) 01/19/24 05:53
Carbon Dioxide 28 mmol/L (22-30) 01/19/24 05:53
BUN 50 mg/dl (7-17) H 01/19/24 05:53
Creatinine 1.6 mg/dL (0.6-1.0) H 01/19/24 05:53
eGFR 33.22 01/19/24 05:53
Glucose 162 mg/dl (70-99) H 01/19/24 05:53
Calcium 9.0 mg/dl (8.4-10.2) 01/19/24 05:53
Phosphorus 4.7 mg/dl (2.5-4.5) H 01/15/24 05:07
Cnq-F-Kborsgnutpj Pept Cancelled 01/14/24 14:05
Albumin 2.6 g/dl (3.5-5.0) L 01/19/24 05:53
Physical Exam
-
Vital Signs:
Vital Signs
Temp Pulse Resp BP Pulse Ox
99.0 F 61 18 94/48 92
01/19/24 11:00 01/19/24 11:00 01/19/24 11:00 01/19/24 11:00 01/19/24 11:00
Cardiovascular:: Regular rate and rhythm
Respiratory:: Bilateral: CTA
Lung Excursion:: Normal
Abdomen:: Nontender and Soft
Extremity Edema:: +1: Bilateral: (trace chronic)
[place] Catheter: No
--- NOTE | 2024-01-19 15:46 | PTCARENOTE ---
Pt is alert and oriented x3. Denies any pain today. Tolerating diet well. Pt has not been OOB today. Hygiene care done by PCT. VSS. Pt has been resting in bed with no complaints at all. Call estrada is within reach.
[2024-01-19 16:59] LABS: Glucose - Point of Care 300 mg/dl (70-99)
[2024-01-19] MEDS: NOVOLOG FLEXPEN-MODERATE RESISTANCE 7 UNITS SC (17:14)
[2024-01-19] MEDS: DEPAKOTE (12 HR RELEASE) 500 MG PO (17:15)
[2024-01-19 21:17] LABS: Glucose - Point of Care 216 mg/dl (70-99)
[2024-01-19] MEDS: SENOKOT-S 1 TABLET PO (21:25)
[2024-01-19] MEDS: LIDOCAINE 4% PATCH 1 PATCH TOPICAL (21:25)
[2024-01-19] MEDS: FOLVITE 1 MG PO (21:25)
[2024-01-19] MEDS: REMERON 15 MG PO (21:25)
[2024-01-19] MEDS: LANTUS 0.0500000000000000028 UNITS SC (21:25)
[2024-01-20 03:00] VITALS: BP 98/59
[2024-01-20] MEDS: SYNTHROID 112 MCG PO (05:41)
[2024-01-20 06:00] VITALS: BMI 24.8
[2024-01-20 06:35] LABS: Hematocrit 25.7 % (37.0-47.0); Hemoglobin 8.2 g/dL (12.0-16.0); Mean Corp Hgb Conc. 31.9 g/dL (33.0-37.0); Mean Corpuscular Hgb 26.5 pg (27.0-31.0); Mean Corpuscular Volume 82.9 fL (81.0-99.0); Mean Platelet Volume 11.1 fL (7.4-10.4); Platelet Count 300 10^3/uL (130-400); Red Cell Dist. Width 20.4 % (11.5-14.5); White Blood Cell Count 9.8 10^3/uL (4.8-10.8)
[2024-01-20 06:54] LABS: ALT (SGPT) 169 U/L (0-35); AST (SGOT) 35 U/L (14-36); Albumin 2.8 g/dl (3.5-5.0); Alkaline Phosphatase 117 U/L (38-126); Blood Urea Nitrogen 59 mg/dl (7-17); Calcium 9.6 mg/dl (8.4-10.2); Carbon Dioxide 27 mmol/L (22-30); Chloride 103 mmol/L (98-107); Estimated Creatinine Clearance 23 ml/min; Glucose 175 mg/dl (70-99); Potassium 4.9 mmol/L (3.5-5.1); Sodium 136 mmol/L (135-145); Total Bilirubin 0.3 mg/dl (0.2-1.3); Total Protein 5.7 g/dl (6.3-8.2); eGFR 33.22
[2024-01-20 07:00] VITALS: BP 123/68
[2024-01-20] MEDS: PACERONE 400 MG PO ×2 (07:47→19:47)
[2024-01-20] MEDS: PROTONIX 40 MG PO (07:47)
[2024-01-20] MEDS: ASPIR LOW (ENTERIC COATED) 81 MG PO (07:47)
[2024-01-20] MEDS: CYMBALTA DELAYED RELEASE 60 MG PO (07:47)
[2024-01-20] MEDS: B COMPLEX w/VITAMIN C 1 CAPLET PO (07:47)
[2024-01-20] MEDS: VITAMIN D3 (cholecalciferol) 50 MCG PO (07:47)
[2024-01-20] MEDS: ELIQUIS 10 MG PO ×2 (07:48→19:47)
[2024-01-20] MEDS: COREG 3.125 MG PO ×2 (07:49→19:46)
[2024-01-20 08:34] LABS: Glucose - Point of Care 186 mg/dl (70-99)
--- NOTE | 2024-01-20 08:57 | W.PN.CD ---
Today's Communication / Plan
-
Resp status remains stable
Lasix on hold with rising creatinine.apears to have plateaued at 1.6. Continue ot hold and monitor renal function and volume status
Afib is stable on amiodarone and low dose Coreg. HR is in 50's. Continue to monitor rates on amioadorne. doseingof amio as outlined. If HR goe slower , will need to stop Coreg
Impression / Plan
-
Admitted 01/02/2024 with chief complaint of edema. Complex hospitalization with hypotension, shock, and abdominal pain. During this admission she has had troponin elevation
Troponin elevation this admit, peak 45.8 on 01/05
- Type II [place] vs nonischemic myocardial injury from her systemic illness
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
Acute HFrEF (EF 25-30%)/NICM:
-LVEF 01/04/2024: Normal and on 01/07/2024: 25-30% with extensive anterior, lateral, and apical wall motion changes (Echo IV contrast); no sig valve disease noted
-Lasix lowered to 20mg daily starting today: trend Cr and weight
-lower coreg to 3.125mg bid with hold parameters
-metoprolol allergy noted
-Further GDMT limited by , renal functionv and BP
-repeat echo at approx 4 weeks outpatient
Paroxysmal Afib, with recurrence of A fib with RVR this admission
-Not on OAC as outpatient due to frequent falls, but now on OAC for acute DVT
-Remains in sinus with IVCD noted on EKG (QT also prolonged, but in setting of IVCD)
-Continue Coreg.
-Continue PO amiodarone load to keep in SR during period of critical illness; 400mg BID for 2 weeks (through 01/27), then 200mg daily, then can plan to stop as outpatient, perhaps in 6-8 weeks.
Known complex CAD and in past was not a CABG candidate:
- Records from [facility]/Dr Mejia 04/06/2023 reviewed
- Last cath seems to have been an Impella supported Left Main PCI with a HEMAL (4x12 Promus) in 08/2019
- Cath 08/2019: 50-60 LM, 80 LAD, 80 Ramus, 100 RCA
-Cath this admit 01/12/2024 => stable CAD => LM stent patent. 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
-Continue ASA 81 mg daily.
-Statin-intolerant.
AR:- had gone up to 2.3 and then improved but npow trending back up to 1.6. Monitor . Lasix held and reduced 01/18. Now held and creatinine appears to plateau at 1.6
-Nephrology following.
Improved resp insuf/hypotension/shock liver
-Management as per primary team.
- ID consult following
- UTI - RSBL
- BC negative ( note that first blood cultures on transfer to ICU were after abx
Acute anemia,
- 1 unit PRBC on 01/07/2024
- trending down. renetta require addtional PRBC
Prior CVA
HTN
DM, type II
PAD, prior intervention
CARDIAC CATH 01/12/24
CONCLUSIONS
1. Right dominant circulation with chronic total occlusion of the proximal RCA (with collaterals from LAD); densely calcified 30% lesion in the proximal LAD, a long 30% lesion in the mid vessel and diffuse disease of the second diagonal which
parallels the LAD and supplies the apex but is too small for intervention, a small to medium size ramus that is diffusely diseased and not amenable to intervention and a 40% lesion in the origin of OM1.
2. Dilated left ventricle with severe global hypokinesis, perhaps worse in the apex with severe LV systolic dysfunction, LV ejection fraction 30%.
3. Severe mitral valve regurgitation.
4. Severely elevated filling pressures (LVEDP = 30 mmHg at 64.0 kg) with severe diastolic dysfunction (A wave to 45 mmHg).
5. No acute ischemic cause for sudden systolic dysfunction. Considerations include sepsis induced LV dysfunction versus Takotsubo variant versus postviral myocarditis (no history of URI, less likely).
Subjective:
She denies CP, SOB.
Physical Exam
Vital Signs/Labs
Vital Signs
Temp Pulse Resp BP Pulse Ox
97.7 F 56 18 123/68 98
01/20/24 07:00 01/20/24 07:00 01/20/24 07:00 01/20/24 07:00 01/20/24 07:00
01/19/24 01/20/24 01/21/24
06:59 06:59 06:59
Actual Weight 60.838 kg 59.466 kg
01/20/24 06:01
01/20/24 06:01
PT 19.7 Sec (11.4-14.6) H 01/07/24 04:17
INR 1.69 01/07/24 04:17
APTT 35.9 Sec (23.4-35.0) H 01/07/24 04:17
Magnesium 2.0 mg/dl (1.6-2.3) 01/17/24 06:37
01/02/24 01/12/24 01/14/24
15:25 04:33 14:05
Wxm-V-Yzxpkbsyyqr Pept 7590 > 67562 Cancelled
Physical Exam
Constitutional: No acute distress
Cardiovascular: Rhythm & rate is regular
Respiratory: Respiratory effort normal
GI: Soft
Neuro/Psych: Alert
Data Reviewed
-
Date of Service: January 20, 2024
Medical Decision Making: External Notes
Echo: Report Reviewed by me
Medical Tests (PFT, Pathology etc): Report Reviewed by me
Labs: Labs Reviewed by me
[2024-01-20] MEDS: NOVOLOG FLEXPEN-MODERATE RESISTANCE 1 UNITS SC (09:19)
[2024-01-20 11:00] VITALS: BP 96/56
--- NOTE | 2024-01-20 11:04 | W.PN.HOSP.TC ---
Today's Communication/Plan
-
discharge planning to SNF
add aspart 5 units AC
Assessment / Plan
Assessment / Plan
A/P:
# acute respiratory distress 01/13/24 for flash pulm edema from rapid aflutter, rapid response called
transferred to ICU 01/12, placed on BiPAP, improved and downgraded to tele 01/15
Cont BiPAP at night and transitioned to O2, weaned off O2 during daytime
diurese per Card
# acute DVT right arm
midline removed, clot propagates into right IJ but is nonocclusive
Would cont Eliquis for 3 months given there is DVT in R IJ
# NSTEMI (TYPE II [place]) this admission
# h/o CAD/multivessel disease and was refused bypass surgery at that time due to several risk factors
Follow up Echo 01/03 noted Severely reduced left ventricular systolic function, EF 25-30%. Mild pulmonary hypertension. Compared to the prior study earlier, EF is worsened
Trop peaked at 45.8
cardiac cath 01/11 noted chronic total occlusion of the proximal RCA and small lesions in proximal LAD/second diagonal- too small for intervention, no obvious cause for drop in EF
# paroxysmal afib
cont coreg 3.125 with holding parameter
Cont amio 400mg bid for 2 weeks (through 01/27) then 200mg daily and can stop outpatient in 6-8 weeks
was not on anticoagulation as outpt given frequent falls
# AR on CKD stage 3
SCr 2.1 -> 1.6 today, (baseline 1.0)
s/p IV Lasix, now on PO lasix 20 mg PO daily with hold parameter
# Shock likely related to ischemic colitis, resolved
# Shock liver and lactic acidosis- resolved
CT AP with PO contrast was unrevealing, noted constipation
s/p Bicarb drip per renal
off pressor Levophed since 01/08
off Tylenol
Urine Cx from 01/06 grew ESBL Klebsiella
Finished ertapenem
empiric PO vanco BID through 01/19 per ID note for h/o C diff colitis
# Acute on chronic (now) systolic heart failure
BNP elevated
Follow up Echo 01/03 noted Severely reduced left ventricular systolic function, EF 25-30%. Mild pulmonary hypertension. Compared to the prior study earlier, EF is worsened
s/p cardiac cath 01/11
BL LE US neg for DVT
IV Lasix has been switched to PO 20 mg daily
COAT AGENT Coreg adjusted to 3.125 mg BID with hold parameter
COAT AGENT nifedipine DC'ed
# New hypotension 01/17, ? from bleeding from skin lesion
COAT AGENT Coreg adjusted to 3.125 mg BID
Lasix with holding parameter
Monitor BP closely and consider IVF bolus for BP support if needed
# Hyperkalemia
treated and resolved
# Hypomagnesemia
repleted
# anemia of chronic disease
s/p 1 unit PRBC transfusion
Hgb remain at 8/ today, Monitor Hgb
Iron studies, B12, folate levels reviewed and acceptable
Cont empiric Protonix 40 IV BID
# Hypocalcemia, repleted
# Hypothyroidism
Continue levothyroxine
# Hyperlipidemia
off statin, intolerant
# Type 2 diabetes
# Hypoglycemia, resolved
Restarted Lantus 5 units HS
Add Aspart 5 units AC
Holding metformin during hospital stay
cover with ISS
# Trigeminal neuralgia
Continue Depakote
# Overactive bladder
On tolterodine at home
# Chronic pain/fibromyalgia/depression
Continue duloxetine, mirtazapine
# Cough following diet from initial presentation
pt seen by [facility], rec GI given pt's complaints of GERD without official dx or prescribed tx, as well as reported difficulty/coughing/choking with solids more than liquids.
GI felt chronic intermittent dysphagia could be related to esophagitis or presbyesophagus. Recommend Protonix 40mg daily. Can also check outpt EGD/colonoscopy for iron deficiency.
# Clinical deconditioning due to shock
PT/OT rec SNF
code status --Full code
DVT prophylaxis� Eliquis
Dispo: SNF per PT OT eval
DW CM
Anticipated Discharge: Within 24 hours
Subjective/Interval History
-
Date of Service: January 20, 2024
Objective Data
-
Labs:
Laboratory Results
01/20/24
06:01
WBC 9.8
Hgb 8.2 L
Hct 25.7 L
Plt Count 300
Sodium 136
Potassium 4.9
Chloride 103
Carbon Dioxide 27
BUN 59 H
Creatinine 1.6 H
Glucose 175 H
Calcium 9.6
Total Bilirubin 0.3
AST 35
ALT 169 H
Alkaline Phosphatase 117
Vital Signs:
Vital Signs
Temp Pulse Resp BP Pulse Ox
36.5 C 56 18 123/68 98
01/20/24 07:00 01/20/24 07:00 01/20/24 07:00 01/20/24 07:00 01/20/24 08:30
I&O
01/19/24 01/20/24 01/21/24
06:59 06:59 06:59
Intake Total 800 / 800 480 / 480
Output Total 2600 / 2600 1800 / 1800
Balance -1800 / -1800 -1320 / -1320
Review of Systems
-
All other systems: Reviewed and negative
Physical Exam
-
General: Well Developed, Well Nourished, No Apparent Distress, Comfortable and Appears Chronically Ill
HEENT: Normocephalic and Atraumatic
Respiratory: Clear to Auscultation and Non Labored Respirations; Negative Accessory Resp Muscle Use
Cardiac: Regular Rhythm, S1/S2 and Bradycardic; Negative Murmur
GI: Soft, Nontender, Nondistended and Normal Bowel Sounds
Musculoskeletal: No Clubbing, No Cyanosis, No Edema and Other (left arm edema much improved)
Skin: Warm
Neuro: Awake and Alert
Psych: Calm and Intact Judgement/Insight
Data Reviewed
-
Diagnostic Radiology: Image personally visualized and interpreted and Report Reviewed by me
CT Scan: Report Reviewed by me
Medical Tests (Nuc Med, Echo etc): Report Reviewed by me (echo)
Labs: Labs Reviewed by me
--- NOTE | 2024-01-20 11:21 | CM ---
Reviewed chart, placed call to [facility] and spoke with Lizeth in admissions who stated that she would have a bed available for patient tomorrow. NPI for [id number] and NPI for attending Dr. Dariel Burleson [id number].
Placed a call to [facility] and spoke with a retail customer service representative named, Belkys who provided Ref# [id number].
Faxed all clinical to [phone].
Will await determination. Attending updated.
Plan: Case management will continue to follow and assist with discharge planning. Hopeful auth to transfer to [facility] will be received by 01/20.
[2024-01-20 11:51] LABS: Glucose - Point of Care 403 mg/dl (70-99)
[2024-01-20] MEDS: FIRVANQ 125 MG PO ×2 (12:07→22:31)
[2024-01-20 12:42] LABS: Glucose 283 mg/dl (70-99)
[2024-01-20] MEDS: NOVOLOG FLEXPEN-MODERATE RESISTANCE 5 UNITS SC (13:05)
[2024-01-20] MEDS: NOVOLOG FLEXPEN 5 UNITS SC ×2 (13:06→16:55)
--- NOTE | 2024-01-20 13:40 | W.PN.NEPH.PH ---
Today's Communication / Plan
-
monitor off lasix
Assessment/Plan
-
Impression:
Acute kidney injury
Baseline CKD3a (1.1)
History of recurrent UTI (ESBL)
Coronary artery disease with previous stenting procedure
Paroxysmal atrial fibrillation
History of CVA
Hypothyroidism
Diabetes mellitus type II
History of subdural hematoma
Trigeminal neuralgia
Multiple left shoulder surgeries with septic left shoulder hardware removal
Bladder dysfunction
Chronic pain/ fibromyalgia
Depression
Restless leg syndrome
Anemia
Hyperkalemia
Metabolic acidosis
Elevated LFTs
Abdominal pain
Plan:
cr is at 1.6 and remains grossly nonoliguric
BP soft, on low dose bb, wt decreasing
hold lasix till cr is stabilized
AC for R UE DVT
follow BMP
-
-
Date of Service: January 20, 2024
CC / HPI / ROS
-
Chief Complaint:
AR
History of present illness
Cr up at 1.6 -unchanged
hgb down 8.2 stable
wt decreasing
SBP in 90s today
Review of Systems:
on RA
pt denies sob or sp at rest
no fever
Labs
-
Labs:
WBC 9.8 10^3/uL (4.8-10.8) 01/20/24 06:01
RBC 3.10 10^6/uL (4.20-5.40) L 01/20/24 06:01
Hgb 8.2 g/dL (12.0-16.0) L 01/20/24 06:01
Hct 25.7 % (37.0-47.0) L 01/20/24 06:01
Plt Count 300 10^3/uL (130-400) 01/20/24 06:01
Sodium 136 mmol/L (135-145) 01/20/24 06:01
Potassium 4.9 mmol/L (3.5-5.1) 01/20/24 06:01
Chloride 103 mmol/L (98-107) 01/20/24 06:01
Carbon Dioxide 27 mmol/L (22-30) 01/20/24 06:01
BUN 59 mg/dl (7-17) H 01/20/24 06:01
Creatinine 1.6 mg/dL (0.6-1.0) H 01/20/24 06:01
eGFR 33.22 01/20/24 06:01
Glucose 283 mg/dl (70-99) H 01/20/24 12:19
Calcium 9.6 mg/dl (8.4-10.2) 01/20/24 06:01
Phosphorus 4.7 mg/dl (2.5-4.5) H 01/15/24 05:07
Yam-Q-Bkwredlvsqi Pept Cancelled 01/14/24 14:05
Albumin 2.8 g/dl (3.5-5.0) L 01/20/24 06:01
Physical Exam
-
Vital Signs:
Vital Signs
Temp Pulse Resp BP Pulse Ox
98.4 F 56 18 96/56 96
01/20/24 11:00 01/20/24 11:00 01/20/24 11:00 01/20/24 11:00 01/20/24 11:00
Cardiovascular:: Regular rate and rhythm
Respiratory:: Bilateral: CTA
Lung Excursion:: Normal
Abdomen:: Nontender and Soft
Extremity Edema:: None: Bilateral:
Lawton Catheter: No
[2024-01-20 15:00] VITALS: BP 143/62
[2024-01-20 16:53] LABS: Glucose - Point of Care 301 mg/dl (70-99)
[2024-01-20] MEDS: NOVOLOG FLEXPEN-MODERATE RESISTANCE 7 UNITS SC (16:57)
[2024-01-20] MEDS: DEPAKOTE (12 HR RELEASE) 500 MG PO (17:00)
[2024-01-20 19:38] VITALS: BP 149/68
[2024-01-20] MEDS: SENOKOT-S 1 TABLET PO (19:47)
[2024-01-20] MEDS: LIDOCAINE 4% PATCH 1 PATCH TOPICAL (19:48)
[2024-01-20 21:27] LABS: Glucose - Point of Care 240 mg/dl (70-99)
[2024-01-20] MEDS: FOLVITE 1 MG PO (22:28)
[2024-01-20] MEDS: REMERON 15 MG PO (22:28)
[2024-01-20] MEDS: LANTUS 0.0500000000000000028 UNITS SC (22:29)
[2024-01-20 22:49] VITALS: BP 94/47
[2024-01-21] VITALS (8 sets, daily range): BP systolic 90–147; BP diastolic 53–104; PULSE 58; O2SAT 94; BMI 25.3
[2024-01-21] MEDS: SYNTHROID 112 MCG PO (05:19)
[2024-01-21 07:00] LABS: Hemoglobin 8.3 g/dL (12.0-16.0); Mean Corp Hgb Conc. 31.9 g/dL (33.0-37.0); Mean Corpuscular Hgb 26.5 pg (27.0-31.0); Mean Corpuscular Volume 83.1 fL (81.0-99.0); Mean Platelet Volume 11.8 fL (7.4-10.4); Platelet Count 328 10^3/uL (130-400); Red Blood Cell Count 3.13 10^6/uL (4.20-5.40); Red Cell Dist. Width 20.3 % (11.5-14.5); White Blood Cell Count 9.8 10^3/uL (4.8-10.8)
[2024-01-21 07:19] LABS: ALT (SGPT) 145 U/L (0-35); AST (SGOT) 34 U/L (14-36); Albumin 2.9 g/dl (3.5-5.0); Alkaline Phosphatase 119 U/L (38-126); Blood Urea Nitrogen 65 mg/dl (7-17); Calcium 9.5 mg/dl (8.4-10.2); Carbon Dioxide 26 mmol/L (22-30); Chloride 104 mmol/L (98-107); Estimated Creatinine Clearance 23 ml/min; Glucose 231 mg/dl (70-99); Sodium 137 mmol/L (135-145); Total Bilirubin 0.3 mg/dl (0.2-1.3); Total Protein 5.7 g/dl (6.3-8.2); eGFR 33.22
[2024-01-21] MEDS: COREG 3.125 MG PO ×2 (08:02→21:02)
[2024-01-21] MEDS: ELIQUIS 5 MG PO ×2 (08:02→21:02)
[2024-01-21] MEDS: B COMPLEX w/VITAMIN C 1 CAPLET PO (08:02)
[2024-01-21] MEDS: ASPIR LOW (ENTERIC COATED) 81 MG PO (08:02)
[2024-01-21] MEDS: PACERONE 400 MG PO (08:02)
[2024-01-21] MEDS: VITAMIN D3 (cholecalciferol) 50 MCG PO (08:02)
[2024-01-21] MEDS: PROTONIX 40 MG PO (08:03)
[2024-01-21] MEDS: CYMBALTA DELAYED RELEASE 60 MG PO (08:03)
[2024-01-21 08:46] LABS: Glucose - Point of Care 208 mg/dl (70-99)
[2024-01-21] MEDS: NOVOLOG FLEXPEN-MODERATE RESISTANCE 3 UNITS SC (08:57)
[2024-01-21] MEDS: NOVOLOG FLEXPEN 5 UNITS SC ×3 (08:57→17:16)
--- NOTE | 2024-01-21 10:13 | W.PN.NEPH.PH ---
Today's Communication / Plan
-
observe
ok to re initiate lasix
Assessment/Plan
-
Impression:
Acute kidney injury
Baseline CKD3a (1.1)
History of recurrent UTI (ESBL)
Coronary artery disease with previous stenting procedure
Paroxysmal atrial fibrillation
History of CVA
Hypothyroidism
Diabetes mellitus type II
History of subdural hematoma
Trigeminal neuralgia
Multiple left shoulder surgeries with septic left shoulder hardware removal
Bladder dysfunction
Chronic pain/ fibromyalgia
Depression
Restless leg syndrome
Anemia
Hyperkalemia
Metabolic acidosis
Elevated LFTs
Abdominal pain
Plan:
cr is at 1.6 and remains grossly nonoliguric
BP soft, on low dose bb, wt unchanged
I believe Lasix can be restarted
AC for R UE DVT
follow BMP
-
-
Date of Service: January 21, 2024
CC / HPI / ROS
-
Chief Complaint:
AR
History of present illness
Cr up at 1.6 -unchanged
hgb down 8.2 stable
Hemodynamically labile
Review of Systems:
on RA
pt denies sob or sp at rest
no fever
Subjective
Labs
-
Labs:
WBC 9.8 10^3/uL (4.8-10.8) 01/21/24 06:12
RBC 3.13 10^6/uL (4.20-5.40) L 01/21/24 06:12
Hgb 8.3 g/dL (12.0-16.0) L 01/21/24 06:12
Hct 26.0 % (37.0-47.0) L 01/21/24 06:12
Plt Count 328 10^3/uL (130-400) 01/21/24 06:12
Sodium 137 mmol/L (135-145) 01/21/24 06:12
Potassium 5.0 mmol/L (3.5-5.1) 01/21/24 06:12
Chloride 104 mmol/L (98-107) 01/21/24 06:12
Carbon Dioxide 26 mmol/L (22-30) 01/21/24 06:12
BUN 65 mg/dl (7-17) H 01/21/24 06:12
Creatinine 1.6 mg/dL (0.6-1.0) H 01/21/24 06:12
eGFR 33.22 01/21/24 06:12
Glucose 231 mg/dl (70-99) H 01/21/24 06:12
Calcium 9.5 mg/dl (8.4-10.2) 01/21/24 06:12
Phosphorus 4.7 mg/dl (2.5-4.5) H 01/15/24 05:07
Qtd-F-Bdnbxhddgsu Pept Cancelled 01/14/24 14:05
Albumin 2.9 g/dl (3.5-5.0) L 01/21/24 06:12
Physical Exam
-
Vital Signs:
Vital Signs
Temp Pulse Resp BP Pulse Ox
98.1 F 65 17 147/104 97
01/21/24 07:00 01/21/24 07:00 01/21/24 07:00 01/21/24 07:00 01/21/24 08:30
Cardiovascular:: Regular rate and rhythm
Respiratory:: Bilateral: CTA
Lung Excursion:: Normal
Abdomen:: Nontender and Soft
Extremity Edema:: None: Bilateral:
Lawton Catheter: No
--- NOTE | 2024-01-21 10:23 | W.PN.CD ---
Today's Communication / Plan
-
-
Amio: stop load, go to 200 a day then => stop AMIO in 6 weeks seems like a good idea
Echo in 4-8 weeks, suspect LVEF will normalize
Cardiology will sign off
She will followup with her [facility] video operator
Impression / Plan
-
Admitted 01/02/2024 with chief complaint of edema. Complex hospitalization with hypotension, shock, and abdominal pain. During this admission she has had troponin elevation
Troponin elevation this admit, peak 45.8 on 01/06/2024
- Type II DE vs nonischemic myocardial injury from her systemic illness
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
Acute HFrEF (EF 25-30%)/NICM:
-LVEF 01/04/2024: Normal and on 01/07/2024: 25-30% with extensive anterior, lateral, and apical wall motion changes (Echo IV contrast); no sig valve disease noted
-Now on low dose Lasix and low dose Coreg
-metoprolol allergy noted
-Further GDMT limited by renal function and BP
-repeat echo at approx 4 weeks outpatient
Paroxysmal Afib, with recurrence of A fib with RVR this admission
- Was not on oral anticoagulant as outpatient due to frequent falls, but now on OAC for acute DVT
- Remains in sinus with IVCD noted on EKG (QT also prolonged, but in setting of IVCD)
- Continue Coreg.
- Amio: stop load, go to 200 a day. Stop AMIO in 6 weeks seems like a good idea
Known complex CAD and in past was not a CABG candidate:
- Records from [facility]/Dr Mejia 04/06/2023 reviewed
- Last cath seems to have been an Impella supported Left Main PCI with a HEMAL (4x12 Promus) in 08/2019
- Cath 08/2019: 50-60 LM, 80 LAD, 80 Ramus, 100 RCA
- Cath this admit 01/12/2024 => stable CAD => LM stent patent. 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
-Continue ASA 81 mg daily.
-Statin-intolerant.
AR:- had gone up to 2.3 and then improved but npow trending back up to 1.6. Monitor . Lasix held and reduced 01/18. Now held and creatinine appears to plateau at 1.6
-Nephrology following.
Improved resp insuf/hypotension/shock liver
-Management as per primary team.
- ID consult following
- UTI - RSBL
- BC negative ( note that first blood cultures on transfer to ICU were after abx
Acute anemia,
- 1 unit PRBC on 01/07/2024
- trending down. renetta require additional PRBC
Prior CVA
HTN
DM, type II
PAD, prior intervention
CARDIAC CATH 01/12/24
CONCLUSIONS
1. Right dominant circulation with chronic total occlusion of the proximal RCA (with collaterals from LAD); densely calcified 30% lesion in the proximal LAD, a long 30% lesion in the mid vessel and diffuse disease of the second diagonal which
parallels the LAD and supplies the apex but is too small for intervention, a small to medium size ramus that is diffusely diseased and not amenable to intervention and a 40% lesion in the origin of OM1.
2. Dilated left ventricle with severe global hypokinesis, perhaps worse in the apex with severe LV systolic dysfunction, LV ejection fraction 30%.
3. Severe mitral valve regurgitation.
4. Severely elevated filling pressures (LVEDP = 30 mmHg at 64.0 kg) with severe diastolic dysfunction (A wave to 45 mmHg).
5. No acute ischemic cause for sudden systolic dysfunction. Considerations include sepsis induced LV dysfunction versus Takotsubo variant versus postviral myocarditis (no history of URI, less likely).
Subjective:
She denies CP, SOB.
Physical Exam
Vital Signs/Labs
Vital Signs
Temp Pulse Resp BP Pulse Ox
98.1 F 65 17 147/104 97
06/14/24 07:00 01/21/24 07:00 01/21/24 07:00 01/21/24 07:00 01/21/24 08:30
01/20/24 01/21/24 01/22/24
06:59 06:59 06:59
Actual Weight 59.466 kg 60.6 kg
01/21/24 06:12
01/21/24 06:12
PT 19.7 Sec (11.4-14.6) H 01/07/24 04:17
INR 1.69 01/07/24 04:17
APTT 35.9 Sec (23.4-35.0) H 01/07/24 04:17
Magnesium 2.0 mg/dl (1.6-2.3) 01/17/24 06:37
01/02/24 01/12/24 01/14/24
15:25 04:33 14:05
Siv-V-Lhqnzjvftof Pept 7590 > 63360 Cancelled
Physical Exam
Constitutional: No acute distress
EENT: Anicteric
Cardiovascular: Rhythm & rate is regular and Pedal edema is absent
Respiratory: Respiratory effort normal and Lungs clear to auscul.
GI: Soft and Distention absent
Neuro/Psych: AO x 3
Data Reviewed
-
Date of Service: January 21, 2024
--- NOTE | 2024-01-21 10:35 | W.PN.HOSP.TC ---
Today's Communication/Plan
-
see A/P
Assessment / Plan
Assessment / Plan
A/P:
# acute respiratory distress 01/13/24 for flash pulm edema from rapid aflutter, rapid response called
transferred to ICU 01/12, placed on BiPAP, improved and downgraded to tele 01/15
Cont BiPAP at night and transitioned to O2, weaned off O2 during daytime
diurese per Card
# acute DVT right arm
midline removed, clot propagates into right IJ but is nonocclusive
Would cont Eliquis for 3 months given there is DVT in R IJ
# NSTEMI (TYPE II IN) this admission
# h/o CAD/multivessel disease and was refused bypass surgery at that time due to several risk factors
Follow up Echo 01/03 noted Severely reduced left ventricular systolic function, EF 25-30%. Mild pulmonary hypertension. Compared to the prior study earlier, EF is worsened
Trop peaked at 45.8
cardiac cath 01/11 noted chronic total occlusion of the proximal RCA and small lesions in proximal LAD/second diagonal- too small for intervention, no obvious cause for drop in EF
# paroxysmal afib
cont coreg 3.125 with holding parameter
s/p amio 400mg bid, now on 200 mg daily per card, plan to stop outpatient in 6-8 weeks
was not on anticoagulation as outpt given frequent falls , now on Eliquis for RIJ DVT
# AR on CKD stage 3
SCr 2.1 -> 1.6 today, (baseline 1.0)
s/p IV Lasix, resumed PO lasix 20 mg daily per renal
# Shock likely related to ischemic colitis, resolved
# Shock liver and lactic acidosis- resolved
CT AP with PO contrast was unrevealing, noted constipation
s/p Bicarb drip per renal
off pressor Levophed since 01/08
off Tylenol
Urine Cx from 01/06 grew ESBL Klebsiella
Finished ertapenem
empiric PO vanco BID through 01/19 per ID note for h/o C diff colitis
# Acute on chronic (now) systolic heart failure
BNP elevated
Follow up Echo 01/03 noted Severely reduced left ventricular systolic function, EF 25-30%. Mild pulmonary hypertension. Compared to the prior study earlier, EF is worsened
s/p cardiac cath 01/11
BL LE US neg for DVT
IV Lasix has been switched to PO 20 mg daily
MAMMALOGIST Coreg adjusted to 3.125 mg BID with hold parameter
MAMMALOGIST nifedipine DC'ed
# labile BP possibly due to autonomic neuropathy
MAMMALOGIST Coreg adjusted to 3.125 mg BID
Lasix with holding parameter
Monitor BP closely and consider IVF bolus for BP support if needed
# Hyperkalemia
treated and resolved
# Hypomagnesemia
repleted
# anemia of chronic disease
s/p 1 unit PRBC transfusion
Hgb remain at 03/10 today, Monitor Hgb
Iron studies, B12, folate levels reviewed and acceptable
Cont empiric Protonix 40 IV BID
# Hypocalcemia, repleted
# Hypothyroidism
Continue levothyroxine
# Hyperlipidemia
off statin, intolerant
# Type 2 diabetes
# Hypoglycemia, resolved
Restarted Lantus 5 units HS
Added Aspart 5 units AC
Holding metformin during hospital stay
cover with ISS
# Trigeminal neuralgia
Continue Depakote
# Overactive bladder
On tolterodine at home
# Chronic pain/fibromyalgia/depression
Continue duloxetine, mirtazapine
# Cough following diet from initial presentation
pt seen by [facility], rec GI given pt's complaints of GERD without official dx or prescribed tx, as well as reported difficulty/coughing/choking with solids more than liquids.
GI felt chronic intermittent dysphagia could be related to esophagitis or presbyesophagus. Recommend Protonix 40mg daily. Can also check outpt EGD/colonoscopy for iron deficiency.
# Clinical deconditioning due to shock
PT/OT rec SNF
code status --Full code
DVT prophylaxis� Eliquis
Dispo: SNF per PT OT eval
DW Card
DW Renal
DW RN
Anticipated Discharge: 24 - 48 hours
Subjective/Interval History
-
Date of Service: January 21, 2024
Objective Data
-
Labs:
Laboratory Results
01/21/24
06:12
WBC 9.8
Hgb 8.3 L
Hct 26.0 L
Plt Count 328
Sodium 137
Potassium 5.0
Chloride 104
Carbon Dioxide 26
BUN 65 H
Creatinine 1.6 H
Glucose 231 H
Calcium 9.5
Total Bilirubin 0.3
AST 34
ALT 145 H
Alkaline Phosphatase 119
Vital Signs:
Vital Signs
Temp Pulse Resp BP Pulse Ox
36.7 C 65 17 147/104 97
01/21/24 07:00 01/21/24 07:00 01/21/24 07:00 01/21/24 07:00 01/21/24 08:30
I&O
01/20/24 01/21/24 01/22/24
06:59 06:59 06:59
Intake Total 480 / 480 420 / 420
Output Total 1800 / 1800
Balance -1320 / -1320 420 / 420
Review of Systems
-
All other systems: Reviewed and negative
Physical Exam
-
General: Well Developed, Well Nourished, No Apparent Distress, Comfortable and Appears Chronically Ill
HEENT: Normocephalic and Atraumatic
Respiratory: Clear to Auscultation and Non Labored Respirations; Negative Accessory Resp Muscle Use
Cardiac: Regular Rhythm and S1/S2; Negative Murmur
GI: Soft, Nontender, Nondistended and Normal Bowel Sounds
Musculoskeletal: No Clubbing, No Cyanosis, No Edema and Other (left arm edema much improved)
Skin: Warm
Neuro: Awake and Alert
Psych: Calm and Intact Judgement/Insight
Data Reviewed
-
Diagnostic Radiology: Image personally visualized and interpreted and Report Reviewed by me
CT Scan: Report Reviewed by me
Medical Tests (Nuc Med, Echo etc): Report Reviewed by me (echo)
Labs: Labs Reviewed by me
[2024-01-21] MEDS: LASIX 20 MG PO (10:38)
[2024-01-21 12:11] LABS: Glucose - Point of Care 267 mg/dl (70-99)
[2024-01-21] MEDS: NOVOLOG FLEXPEN-MODERATE RESISTANCE 5 UNITS SC ×2 (12:45→17:16)
--- NOTE | 2024-01-21 16:34 | CM ---
Still have not as of yet received authorization for patient. Spoke with Minda in admissions at [facility] who stated that if auth is received over the weekend, call AMBER @ [phone].
Plan: Case management will continue to follow and assist with discharge planning. [facility] upon receipt of authorization.
[2024-01-21] MEDS: DEPAKOTE (12 HR RELEASE) 500 MG PO (17:17)
[2024-01-21] MEDS: REMERON 15 MG PO (21:02)
[2024-01-21] MEDS: FOLVITE 1 MG PO (21:03)
[2024-01-21 21:10] LABS: Glucose - Point of Care 186 mg/dl (70-99)
[2024-01-21] MEDS: LIDOCAINE 4% PATCH 1 PATCH TOPICAL (21:22)
[2024-01-21] MEDS: LANTUS 0.0500000000000000028 UNITS SC (21:22)
[2024-01-22] VITALS (7 sets, daily range): BP systolic 83–127; BP diastolic 50–75; BMI 25.5
[2024-01-22] MEDS: SYNTHROID 112 MCG PO (05:35)
[2024-01-22 07:51] LABS: Glucose - Point of Care 406 mg/dl (70-99)
[2024-01-22 08:21] LABS: Hematocrit 31.1 % (37.0-47.0); Mean Corp Hgb Conc. 32.2 g/dL (33.0-37.0); Mean Corpuscular Hgb 27.5 pg (27.0-31.0); Mean Corpuscular Volume 85.7 fL (81.0-99.0); Platelet Count 359 10^3/uL (130-400); Red Blood Cell Count 3.63 10^6/uL (4.20-5.40); Red Cell Dist. Width 20.6 % (11.5-14.5); White Blood Cell Count 10.5 10^3/uL (4.8-10.8)
[2024-01-22] MEDS: B COMPLEX w/VITAMIN C 1 CAPLET PO (08:49)
[2024-01-22] MEDS: COREG 3.125 MG PO ×2 (08:49→22:13)
[2024-01-22] MEDS: PACERONE 200 MG PO (08:49)
[2024-01-22] MEDS: VITAMIN D3 (cholecalciferol) 50 MCG PO (08:49)
[2024-01-22] MEDS: CYMBALTA DELAYED RELEASE 60 MG PO (08:49)
[2024-01-22] MEDS: PROTONIX 40 MG PO (08:49)
[2024-01-22] MEDS: LASIX 20 MG PO (08:49)
[2024-01-22] MEDS: ELIQUIS 5 MG PO ×2 (08:49→22:13)
[2024-01-22] MEDS: ASPIR LOW (ENTERIC COATED) 81 MG PO (08:50)
[2024-01-22 09:01] LABS: ALT (SGPT) 137 U/L (0-35); AST (SGOT) 36 U/L (14-36); Albumin 3.3 g/dl (3.5-5.0); Alkaline Phosphatase 108 U/L (38-126); Blood Urea Nitrogen 58 mg/dl (7-17); Calcium 9.9 mg/dl (8.4-10.2); Carbon Dioxide 27 mmol/L (22-30); Chloride 104 mmol/L (98-107); Estimated Creatinine Clearance 21 ml/min; Glucose 158 mg/dl (70-99); Potassium 4.9 mmol/L (3.5-5.1); Sodium 141 mmol/L (135-145); Total Bilirubin 0.4 mg/dl (0.2-1.3); Total Protein 6.5 g/dl (6.3-8.2); eGFR 30.89
[2024-01-22 09:02] LABS: Glucose 159 mg/dl (70-99)
[2024-01-22] MEDS: NOVOLOG FLEXPEN-MODERATE RESISTANCE 1 UNITS SC ×3 (09:12→17:29)
[2024-01-22] MEDS: NOVOLOG FLEXPEN 5 UNITS SC ×3 (09:12→17:29)
--- NOTE | 2024-01-22 10:08 | W.PN.NEPH.PH ---
Today's Communication / Plan
-
Follow BMP while on Lasix
As creatinine rising check random postvoid bladder scan to assess for obstructive component
Assessment/Plan
-
Impression:
Acute kidney injury
Baseline CKD3a (1.1)
History of recurrent UTI (ESBL)
Coronary artery disease with previous stenting procedure
Paroxysmal atrial fibrillation
History of CVA
Hypothyroidism
Diabetes mellitus type II
History of subdural hematoma
Trigeminal neuralgia
Multiple left shoulder surgeries with septic left shoulder hardware removal
Bladder dysfunction
Chronic pain/ fibromyalgia
Depression
Restless leg syndrome
Anemia
Hyperkalemia
Metabolic acidosis
Elevated LFTs
Abdominal pain
Plan:
cr is at 1.7 and remains grossly nonoliguric
BP soft, on low dose bb, wt up, urine output not recorded
Lasix was restarted
AC for R UE DVT
follow BMP
-
-
Date of Service: January 22, 2024
CC / HPI / ROS
-
Chief Complaint:
AR
History of present illness
Cr up at 1.7 -
hgb up to 10
Hemodynamically labile
Review of Systems:
on RA
pt denies sob or sp at rest
no fever
Subjective nonoliguric
Labs
-
Labs:
WBC 10.5 10^3/uL (4.8-10.8) 01/22/24 07:01
RBC 3.63 10^6/uL (4.20-5.40) L 01/22/24 07:01
Hgb 10.0 g/dL (12.0-16.0) L D 01/22/24 07:01
Hct 31.1 % (37.0-47.0) L 01/22/24 07:01
Plt Count 359 10^3/uL (130-400) 01/22/24 07:01
Sodium 141 mmol/L (135-145) 01/22/24 07:01
Potassium 4.9 mmol/L (3.5-5.1) 01/22/24 07:01
Chloride 104 mmol/L (98-107) 01/22/24 07:01
Carbon Dioxide 27 mmol/L (22-30) 01/22/24 07:01
BUN 58 mg/dl (7-17) H 01/22/24 07:01
Creatinine 1.7 mg/dL (0.6-1.0) H 01/22/24 07:01
eGFR 30.89 01/22/24 07:01
Glucose 159 mg/dl (70-99) H 01/22/24 08:30
Calcium 9.9 mg/dl (8.4-10.2) 01/22/24 07:01
Phosphorus 4.7 mg/dl (2.5-4.5) H 01/15/24 05:07
Eoq-J-Bsttzdwpakf Pept Cancelled 01/14/24 14:05
Albumin 3.3 g/dl (3.5-5.0) L 01/22/24 07:01
Physical Exam
-
Vital Signs:
Vital Signs
Temp Pulse Resp BP Pulse Ox
98.4 F 62 18 119/62 98
01/22/24 07:00 01/22/24 07:00 01/22/24 07:00 01/22/24 08:48 01/22/24 08:48
Cardiovascular:: Regular rate and rhythm
Respiratory:: Bilateral: CTA
Lung Excursion:: Normal
Abdomen:: Nontender and Soft
Extremity Edema:: None: Bilateral:
Lawton Catheter: No
--- NOTE | 2024-01-22 10:28 | W.PN.HOSP.TC ---
Today's Communication/Plan
-
pending insurance auth for SNF
Assessment / Plan
Assessment / Plan
A/P:
# acute respiratory distress 01/13/24 for flash pulm edema from rapid aflutter, rapid response called
transferred to ICU 01/12, placed on BiPAP, improved and downgraded to tele 01/15
off BiPAP and weaned off O2 during daytime
diurese per Card (see below)
# acute DVT right arm
midline removed, clot propagates into right IJ but is nonocclusive
Would cont Eliquis for 3 months given there is DVT in R IJ
# NSTEMI (TYPE II MA) this admission
# h/o CAD/multivessel disease and was refused bypass surgery at that time due to several risk factors
Follow up Echo 01/03 noted Severely reduced left ventricular systolic function, EF 25-30%. Mild pulmonary hypertension. Compared to the prior study earlier, EF is worsened
Trop peaked at 45.8
cardiac cath 01/11 noted chronic total occlusion of the proximal RCA and small lesions in proximal LAD/second diagonal- too small for intervention, no obvious cause for drop in EF
# paroxysmal afib
cont coreg 3.125 with holding parameter
s/p amio 400mg bid, now on 200 mg daily per card, plan to stop outpatient in 6-8 weeks
was not on anticoagulation as outpt given frequent falls , now on Eliquis for RIJ DVT
# AR on CKD stage 3
SCr 2.1 -> 1.7 today, (baseline 1.0)
s/p IV Lasix, resumed PO lasix 20 mg daily per renal
# Shock likely related to ischemic colitis, resolved
# Shock liver and lactic acidosis- resolved
CT AP with PO contrast was unrevealing, noted constipation
s/p Bicarb drip per renal
off pressor Levophed since 01/08
off Tylenol
Urine Cx from 01/06 grew ESBL Klebsiella
Finished ertapenem
empiric PO vanco BID through 01/19 per ID note for h/o C diff colitis
# Acute on chronic (now) systolic heart failure
BNP elevated
Follow up Echo 01/03 noted Severely reduced left ventricular systolic function, EF 25-30%. Mild pulmonary hypertension. Compared to the prior study earlier, EF is worsened
s/p cardiac cath 01/11
BL LE US neg for DVT
IV Lasix has been switched to PO 20 mg daily with hold parameter
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
SUPER[employer]ING nifedipine DC'ed
# labile BP possibly due to autonomic neuropathy
SUPERVISOR [employer]CRE[employer]ING Coreg adjusted to 3.125 mg BID
Lasix with holding parameter
Monitor BP closely and consider IVF bolus for BP support if needed
# Hyperkalemia
treated and resolved
# Hypomagnesemia
repleted
# anemia of chronic disease
s/p 1 unit PRBC transfusion
Hgb remain at 03/10 today, Monitor Hgb
Iron studies, B12, folate levels reviewed and acceptable
Cont empiric Protonix 40 IV BID
# Hypocalcemia, repleted
# Hypothyroidism
Continue levothyroxine
# Hyperlipidemia
off statin, intolerant
# Type 2 diabetes
# Hypoglycemia, resolved
Restarted Lantus 5 units HS
Added Aspart 5 units AC
Holding metformin during hospital stay
cover with ISS
# Trigeminal neuralgia
Continue Depakote
# Overactive bladder
On tolterodine at home
# Chronic pain/fibromyalgia/depression
Continue duloxetine, mirtazapine
# Cough following diet from initial presentation
pt seen by [facility], rec GI given pt's complaints of GERD without official dx or prescribed tx, as well as reported difficulty/coughing/choking with solids more than liquids.
GI felt chronic intermittent dysphagia could be related to esophagitis or presbyesophagus. Recommend Protonix 40mg daily. Can also check outpt EGD/colonoscopy for iron deficiency.
# Clinical deconditioning due to shock
PT/OT rec SNF
code status --Full code
DVT prophylaxis� Eliquis
Dispo: SNF per PT OT torie
Anticipated Discharge: 24 - 48 hours
Subjective/Interval History
-
Date of Service: January 22, 2024
Objective Data
-
Labs:
Laboratory Results
01/22/24 01/22/24
07:01 08:30
WBC 10.5
Hgb 10.0 L D
Hct 31.1 L
Plt Count 359
Sodium 141
Potassium 4.9
Chloride 104
Carbon Dioxide 27
BUN 58 H
Creatinine 1.7 H
Glucose 158 H 159 H
Calcium 9.9
Total Bilirubin 0.4
AST 36
ALT 137 H
Alkaline Phosphatase 108
Vital Signs:
Vital Signs
Temp Pulse Resp BP Pulse Ox
36.9 C 62 18 119/62 98
01/22/24 07:00 01/22/24 07:00 01/22/24 07:00 01/22/24 08:48 01/22/24 08:48
I&O
01/21/24 01/22/24 01/23/24
06:59 06:59 06:59
Intake Total 420 / 420 980 / 980
Balance 420 / 420 980 / 980
Review of Systems
-
All other systems: Reviewed and negative
Physical Exam
-
General: Well Developed, Well Nourished, No Apparent Distress, Comfortable and Appears Chronically Ill
HEENT: Normocephalic and Atraumatic
Respiratory: Clear to Auscultation and Non Labored Respirations; Negative Accessory Resp Muscle Use
Cardiac: Regular Rhythm and S1/S2; Negative Murmur
GI: Soft, Nontender, Nondistended and Normal Bowel Sounds
Musculoskeletal: No Clubbing, No Cyanosis, No Edema and Other (left arm edema much improved)
Skin: Warm
Neuro: Awake and Alert
Psych: Calm and Intact Judgement/Insight
Data Reviewed
-
Diagnostic Radiology: Image personally visualized and interpreted and Report Reviewed by me
CT Scan: Report Reviewed by me
Medical Tests (Nuc Med, Echo etc): Report Reviewed by me (echo)
Labs: Labs Reviewed by me
--- NOTE | 2024-01-22 10:49 | PTCARENOTE ---
Bladder scan 170. pt incontinent and Renal MD notified
[2024-01-22 11:50] LABS: Glucose - Point of Care 178 mg/dl (70-99)
--- NOTE | 2024-01-22 12:24 | CM ---
Case management following for d/c planning
Plan - [facility] when auth obtained
Ref# [id number]
Called [facility] ([facility]),
Spoke with telephone services sales representative
Case remains pending - at medical directors desk per telephone services sales representative
Plan - anticipate transfer to the [facility] when auth obtained
--- NOTE | 2024-01-22 13:27 | PTCARENOTE ---
Skin care assessment completed. Heels look good not boggy good pulse no edema, elevated on pillow. Sacral red blanchable, cream applied, sacral cushion applied and turned onto right side. PT given incontinence care diaper changed and purwick
working skin non tender. PT finished lunch and ate > 90 %. will continue turn q 2 hour schedule
[2024-01-22 16:38] LABS: Glucose - Point of Care 162 mg/dl (70-99)
[2024-01-22] MEDS: DEPAKOTE (12 HR RELEASE) 500 MG PO (17:29)
[2024-01-22 21:46] LABS: Glucose - Point of Care 141 mg/dl (70-99)
[2024-01-22] MEDS: LANTUS 0.0500000000000000028 UNITS SC (22:11)
[2024-01-22] MEDS: REMERON 15 MG PO (22:12)
[2024-01-22] MEDS: FOLVITE 1 MG PO (22:12)
[2024-01-22] MEDS: LIDOCAINE 4% PATCH 1 PATCH TOPICAL (22:12)
[2024-01-22] MEDS: ULTRAM 25 MG PO (22:13)
[2024-01-23 03:50] VITALS: BP 111/84
[2024-01-23] MEDS: SYNTHROID 112 MCG PO (05:45)
[2024-01-23 06:00] VITALS: BMI 24.6
[2024-01-23 07:00] VITALS: BP 119/54
[2024-01-23 07:52] LABS: Hematocrit 26.8 % (37.0-47.0); Hemoglobin 8.6 g/dL (12.0-16.0); Mean Corp Hgb Conc. 32.1 g/dL (33.0-37.0); Mean Corpuscular Hgb 27.3 pg (27.0-31.0); Mean Corpuscular Volume 85.1 fL (81.0-99.0); Mean Platelet Volume 11.2 fL (7.4-10.4); Platelet Count 324 10^3/uL (130-400); Red Blood Cell Count 3.15 10^6/uL (4.20-5.40); Red Cell Dist. Width 20.3 % (11.5-14.5); White Blood Cell Count 8.5 10^3/uL (4.8-10.8)
[2024-01-23 08:02] LABS: Glucose - Point of Care 121 mg/dl (70-99)
[2024-01-23 08:15] LABS: ALT (SGPT) 106 U/L (0-35); AST (SGOT) 30 U/L (14-36); Albumin 2.9 g/dl (3.5-5.0); Alkaline Phosphatase 79 U/L (38-126); Blood Urea Nitrogen 57 mg/dl (7-17); Calcium 9.5 mg/dl (8.4-10.2); Carbon Dioxide 25 mmol/L (22-30); Chloride 106 mmol/L (98-107); Estimated Creatinine Clearance 24 ml/min; Glucose 122 mg/dl (70-99); Potassium 4.8 mmol/L (3.5-5.1); Sodium 139 mmol/L (135-145); Total Bilirubin 0.4 mg/dl (0.2-1.3); Total Protein 5.7 g/dl (6.3-8.2); eGFR 35.89
[2024-01-23] MEDS: NOVOLOG FLEXPEN 5 UNITS SC ×3 (09:09→17:42)
[2024-01-23] MEDS: PROTONIX 40 MG PO (09:10)
[2024-01-23] MEDS: ASPIR LOW (ENTERIC COATED) 81 MG PO (09:10)
[2024-01-23] MEDS: PACERONE 200 MG PO (09:10)
[2024-01-23] MEDS: CYMBALTA DELAYED RELEASE 60 MG PO (09:10)
[2024-01-23] MEDS: LASIX 20 MG PO (09:10)
[2024-01-23] MEDS: NOVOLOG FLEXPEN-MODERATE RESISTANCE SC (09:10)
[2024-01-23] MEDS: VITAMIN D3 (cholecalciferol) 50 MCG PO (09:10)
[2024-01-23] MEDS: ELIQUIS 5 MG PO ×2 (09:11→20:05)
[2024-01-23] MEDS: B COMPLEX w/VITAMIN C 1 CAPLET PO (09:11)
[2024-01-23] MEDS: COREG 3.125 MG PO ×2 (09:11→20:05)
--- NOTE | 2024-01-23 09:46 | CM ---
Addendum entered by Radha Devonte 01/23/24 13:07:
Pt and made aware of denial and given phone number to call for appeal
Addendum entered by Radha [facility] 01/23/24 12:55:
Received call from pts insurance
Per rep [employer] denied request for SNF
[place] pts needs can be met with intermittent PT/OT vs skilled rehab
To appeal pt may call , fax - [phone] Munoz notified
Addendum entered by Radha Devonte 01/23/24 12:32:
Dr Munoz completed peer to peer
Awaiting determination
Original Note:
Case management following for d/c planning
Received message from pts insurance [facility]
Requesting peer to peer
[phone], option 5
Dr Munoz made aware
--- NOTE | 2024-01-23 10:43 | PTCARENOTE ---
PT identified as a high fall risk. Pt with yellow magnate on door PT makes no attempt to get out of bed call estrada in hand
[2024-01-23 11:00] VITALS: BP 113/37
--- NOTE | 2024-01-23 11:13 | W.PN.HOSP.TC ---
Addendum entered and electronically signed by Luma Munoz MD 01/23/24 11:29:
Called insurance for peer to peer review [phone] ext [phone].
Insurance will review and get back regarding decision.
Original Note:
Today's Communication/Plan
-
see A/P
Assessment / Plan
Assessment / Plan
A/P:
# acute respiratory distress 01/13/24 for flash pulm edema from rapid aflutter, rapid response called
transferred to ICU 01/12, placed on BiPAP, improved and downgraded to tele 01/15
off BiPAP and weaned off O2 during daytime
diurese per Card (see below)
# acute DVT right arm
midline removed, clot propagates into right IJ but is nonocclusive
Would cont Eliquis for 3 months given there is DVT in R IJ
# NSTEMI (TYPE II SD) this admission
# h/o CAD/multivessel disease and was refused bypass surgery at that time due to several risk factors
Follow up Echo 01/03 noted Severely reduced left ventricular systolic function, EF 25-30%. Mild pulmonary hypertension. Compared to the prior study earlier, EF is worsened
Trop peaked at 45.8
cardiac cath 01/11 noted chronic total occlusion of the proximal RCA and small lesions in proximal LAD/second diagonal- too small for intervention, no obvious cause for drop in EF
# paroxysmal afib
cont coreg 3.125 with holding parameter
s/p amio 400mg bid, now on 200 mg daily per card, plan to stop outpatient in 6-8 weeks
was not on anticoagulation as outpt given frequent falls , now on Eliquis for RIJ DVT
# AR on CKD stage 3
SCr 2.1 -> 1.5 today, (baseline 1.0)
s/p IV Lasix, resumed PO lasix 20 mg daily per renal
# Shock likely related to ischemic colitis, resolved
# Shock liver and lactic acidosis- resolved
CT AP with PO contrast was unrevealing, noted constipation
s/p Bicarb drip per renal
off pressor Levophed since 01/08
off Tylenol
Urine Cx from 01/06 grew ESBL Klebsiella
Finished ertapenem
s/p empiric PO vanco BID through 01/19 for h/o C diff colitis
# Acute on chronic (now) systolic heart failure
BNP elevated
Follow up Echo 01/03 noted Severely reduced left ventricular systolic function, EF 25-30%. Mild pulmonary hypertension. Compared to the prior study earlier, EF is worsened
s/p cardiac cath 01/11
BL LE US neg for DVT
IV Lasix has been switched to PO 20 mg daily with hold parameter
FORESTRY TREE PRUNER Coreg adjusted to 3.125 mg BID with hold parameter
FORESTRY TREE PRUNER nifedipine DC'ed
# labile BP possibly due to autonomic dysregulation
FORESTRY TREE PRUNER Coreg adjusted to 3.125 mg BID
Lasix with holding parameter
Monitor BP closely and consider IVF bolus for BP support if needed
# Hyperkalemia
treated and resolved
# Hypomagnesemia
repleted
# anemia of chronic disease
s/p 1 unit PRBC transfusion
Hgb remain at 03/10 today, Monitor Hgb
Iron studies, B12, folate levels reviewed and acceptable
Cont empiric Protonix 40 IV BID
# Hypocalcemia, repleted
# Hypothyroidism
Continue levothyroxine
# Hyperlipidemia
off statin, intolerant
# Type 2 diabetes
# Hypoglycemia, resolved
Restarted Lantus 5 units HS
Added Aspart 5 units AC
Holding metformin during hospital stay
cover with ISS
# Trigeminal neuralgia
Continue Depakote
# Overactive bladder
On tolterodine at home
# Chronic pain/fibromyalgia/depression
Continue duloxetine, mirtazapine
# Cough following diet from initial presentation
pt seen by SPL, rec GI given pt's complaints of GERD without official dx or prescribed tx, as well as reported difficulty/coughing/choking with solids more than liquids.
GI felt chronic intermittent dysphagia could be related to esophagitis or presbyesophagus. Recommend Protonix 40mg daily. Can also check outpt EGD/colonoscopy for iron deficiency.
# Clinical deconditioning due to shock
PT/OT rec SNF
code status --Full code
DVT prophylaxis� Eliquis
Dispo: SNF per PT OT torie
DW CM
Anticipated Discharge: 24 - 48 hours
Subjective/Interval History
-
Date of Service: January 23, 2024
Objective Data
-
Labs:
Laboratory Results
01/23/24
07:09
WBC 8.5
Hgb 8.6 L
Hct 26.8 L
Plt Count 324
Sodium 139
Potassium 4.8
Chloride 106
Carbon Dioxide 25
BUN 57 H
Creatinine 1.5 H
Glucose 122 H
Calcium 9.5
Total Bilirubin 0.4
AST 30
ALT 106 H
Alkaline Phosphatase 79
Vital Signs:
Vital Signs
Temp Pulse Resp BP Pulse Ox
36.8 C 64 20 119/54 94
01/23/24 07:00 01/23/24 07:00 01/23/24 07:00 01/23/24 07:00 01/23/24 07:00
I&O
01/22/24 01/23/24 01/24/24
06:59 06:59 06:59
Intake Total 980 / 980 2099 / 2099
Output Total 1949 / 1949
Balance 980 / 980 150 / 150
Review of Systems
-
All other systems: Reviewed and negative
Physical Exam
-
General: Well Developed, Well Nourished, No Apparent Distress, Comfortable and Appears Chronically Ill
HEENT: Normocephalic and Atraumatic
Respiratory: Clear to Auscultation and Non Labored Respirations; Negative Accessory Resp Muscle Use
Cardiac: Regular Rhythm and S1/S2; Negative Murmur
GI: Soft, Nontender, Nondistended and Normal Bowel Sounds
Musculoskeletal: No Clubbing, No Cyanosis, No Edema and Other (left arm edema much improved)
Skin: Warm
Neuro: Awake and Alert
Psych: Calm and Intact Judgement/Insight
Data Reviewed
-
Diagnostic Radiology: Image personally visualized and interpreted and Report Reviewed by me
CT Scan: Report Reviewed by me
Medical Tests (Nuc Med, Echo etc): Report Reviewed by me (echo)
Labs: Labs Reviewed by me
--- NOTE | 2024-01-23 11:23 | W.PN.NEPH.PH ---
Today's Communication / Plan
-
Creatinine with some improvement to 1.5
Maintain Lasix
Follow BMP
Assessment/Plan
-
Impression:
Acute kidney injury
Baseline CKD3a (1.1)
History of recurrent UTI (ESBL)
Coronary artery disease with previous stenting procedure
Paroxysmal atrial fibrillation
History of CVA
Hypothyroidism
Diabetes mellitus type II
History of subdural hematoma
Trigeminal neuralgia
Multiple left shoulder surgeries with septic left shoulder hardware removal
Bladder dysfunction
Chronic pain/ fibromyalgia
Depression
Restless leg syndrome
Anemia
Hyperkalemia
Metabolic acidosis
Elevated LFTs
Abdominal pain
Plan:
cr is at 1.5 and remains grossly nonoliguric
BP soft, on low dose bb,, but stable
Lasix continue
AC for R UE DVT
follow BMP
-
-
Date of Service: January 23, 2024
CC / HPI / ROS
-
Chief Complaint:
AR
History of present illness
Cr down to 1.5
hgb up to 10
Hemodynamically more
Review of Systems:
on RA
Grossly nonoliguric
pt denies sob or cp at rest
no fever
Labs
-
Labs:
WBC 8.5 10^3/uL (4.8-10.8) 01/23/24 07:09
RBC 3.15 10^6/uL (4.20-5.40) L 01/23/24 07:09
Hgb 8.6 g/dL (12.0-16.0) L 01/23/24 07:09
Hct 26.8 % (37.0-47.0) L 01/23/24 07:09
Plt Count 324 10^3/uL (130-400) 01/23/24 07:09
Sodium 139 mmol/L (135-145) 01/23/24 07:09
Potassium 4.8 mmol/L (3.5-5.1) 01/23/24 07:09
Chloride 106 mmol/L (98-107) 01/23/24 07:09
Carbon Dioxide 25 mmol/L (22-30) 01/23/24 07:09
BUN 57 mg/dl (7-17) H 01/23/24 07:09
Creatinine 1.5 mg/dL (0.6-1.0) H 01/23/24 07:09
eGFR 35.89 01/23/24 07:09
Glucose 122 mg/dl (70-99) H 01/23/24 07:09
Calcium 9.5 mg/dl (8.4-10.2) 01/23/24 07:09
Phosphorus 4.7 mg/dl (2.5-4.5) H 01/15/24 05:07
Cby-D-Tqsraglirld Pept Cancelled 01/14/24 14:05
Albumin 2.9 g/dl (3.5-5.0) L 01/23/24 07:09
Physical Exam
-
Vital Signs:
Vital Signs
Temp Pulse Resp BP Pulse Ox
98.9 F 60 18 113/37 95
01/23/24 11:00 01/23/24 11:00 01/23/24 11:00 01/23/24 11:00 01/23/24 11:00
Cardiovascular:: Regular rate and rhythm
Respiratory:: Bilateral: CTA
Lung Excursion:: Normal
Abdomen:: Nontender and Soft
Extremity Edema:: None: Bilateral:
Lawton Catheter: No
[2024-01-23 11:58] LABS: Glucose - Point of Care 231 mg/dl (70-99)
[2024-01-23] MEDS: NOVOLOG FLEXPEN-MODERATE RESISTANCE 3 UNITS SC ×2 (12:48→17:41)
--- NOTE | 2024-01-23 14:21 | PTCARENOTE ---
PT turned and repositioned q 2 hours, Incontence care provided, sacrum macerated red blanchable, cream applied. air cushion added under sacrum, Shantanu heels eleveted off bed with pillow. Heels look good no blanching noted, not boggy. PT has call
estrada in hand and rings appropriately. PT makes no attempt to get out of bed by self.
[2024-01-23 15:00] VITALS: BP 138/59
[2024-01-23 16:31] LABS: Glucose - Point of Care 238 mg/dl (70-99)
[2024-01-23] MEDS: DEPAKOTE (12 HR RELEASE) 500 MG PO (17:41)
[2024-01-23 19:32] VITALS: BP 118/41
[2024-01-23] MEDS: FOLVITE 1 MG PO (21:24)
[2024-01-23] MEDS: LIDOCAINE 4% PATCH 1 PATCH TOPICAL (21:24)
[2024-01-23] MEDS: REMERON 15 MG PO (21:24)
[2024-01-23] MEDS: LANTUS 0.0500000000000000028 UNITS SC (21:25)
[2024-01-23 21:26] LABS: Glucose - Point of Care 178 mg/dl (70-99)
[2024-01-23 23:31] VITALS: BP 110/47
[2024-01-24 03:40] VITALS: BP 141/60
[2024-01-24] MEDS: SYNTHROID 112 MCG PO (06:40)
[2024-01-24 06:58] LABS: Hematocrit 26.4 % (37.0-47.0); Hemoglobin 8.4 g/dL (12.0-16.0); Mean Corp Hgb Conc. 31.8 g/dL (33.0-37.0); Mean Corpuscular Hgb 26.8 pg (27.0-31.0); Mean Corpuscular Volume 84.3 fL (81.0-99.0); Mean Platelet Volume 11.1 fL (7.4-10.4); Platelet Count 366 10^3/uL (130-400); Red Blood Cell Count 3.13 10^6/uL (4.20-5.40); Red Cell Dist. Width 20.3 % (11.5-14.5)
[2024-01-24 07:00] VITALS: BP 146/79
[2024-01-24 07:13] VITALS: BMI 25.0
[2024-01-24 07:47] LABS: ALT (SGPT) 94 U/L (0-35); AST (SGOT) 27 U/L (14-36); Albumin 2.9 g/dl (3.5-5.0); Alkaline Phosphatase 85 U/L (38-126); Blood Urea Nitrogen 59 mg/dl (7-17); Calcium 9.7 mg/dl (8.4-10.2); Carbon Dioxide 24 mmol/L (22-30); Chloride 106 mmol/L (98-107); Estimated Creatinine Clearance 24 ml/min; Glucose 154 mg/dl (70-99); Potassium 4.8 mmol/L (3.5-5.1); Sodium 139 mmol/L (135-145); Total Bilirubin 0.4 mg/dl (0.2-1.3); Total Protein 5.8 g/dl (6.3-8.2); eGFR 35.89
[2024-01-24 08:25] LABS: Glucose - Point of Care 149 mg/dl (70-99)
[2024-01-24] MEDS: NOVOLOG FLEXPEN-MODERATE RESISTANCE SC (08:54)
[2024-01-24] MEDS: NOVOLOG FLEXPEN 5 UNITS SC ×3 (08:55→17:03)
[2024-01-24] MEDS: PROTONIX 40 MG PO (08:56)
[2024-01-24] MEDS: ASPIR LOW (ENTERIC COATED) 81 MG PO (08:56)
[2024-01-24] MEDS: B COMPLEX w/VITAMIN C 1 CAPLET PO (08:56)
[2024-01-24] MEDS: ELIQUIS 5 MG PO ×2 (08:56→21:24)
[2024-01-24] MEDS: VITAMIN D3 (cholecalciferol) 50 MCG PO (08:56)
[2024-01-24] MEDS: CYMBALTA DELAYED RELEASE 60 MG PO (08:56)
[2024-01-24] MEDS: LASIX 20 MG PO (08:57)
[2024-01-24] MEDS: PACERONE 200 MG PO (08:57)
[2024-01-24] MEDS: COREG 3.125 MG PO ×2 (08:57→21:24)
--- NOTE | 2024-01-24 10:38 | CM ---
Patient seen at bedside, Patient confirmed son was calling for appeal. CM received call that insurance requested updated clinicals and faxed to requesting number. CM spoke with patient and son Ed [phone]. CM updated both son and
with Abe Spann [place] liaison phone contact and CM confirmed that fax sent to [facility] appeals. Family plan is for SNF, CM reviewed options of private pay, personal care vs home with aides. CM will continue to follow for discharge
planning needs.
Plan;SNF; pending insurance auth
[2024-01-24 11:00] VITALS: BP 122/65
--- NOTE | 2024-01-24 11:15 | WOUNDNOTE ---
DAR RN NOTE: Patient admitted with CHF, PMH DM, CAD,HTN, A fib, IL, stroke and multiple skin tears. Asked to see patient for L arm skin tears. No longer bleeding, Vaseline gauze and dry dressing changed. Sacrum stage 1 PI using barrier ointment. PT
got patient to chair, using air chair cushion. Plan is SNF upon discharge. Will sign off unless needed.
--- NOTE | 2024-01-24 11:21 | W.PN.NEPH.PH ---
Today's Communication / Plan
-
dispo planning
Assessment/Plan
-
Impression:
Acute kidney injury
Baseline CKD3a (1.1)
History of recurrent UTI (ESBL)
Coronary artery disease with previous stenting procedure
Paroxysmal atrial fibrillation
History of CVA
Hypothyroidism
Diabetes mellitus type II
History of subdural hematoma
Trigeminal neuralgia
Multiple left shoulder surgeries with septic left shoulder hardware removal
Bladder dysfunction
Chronic pain/ fibromyalgia
Depression
Restless leg syndrome
Anemia
Hyperkalemia
Metabolic acidosis
Elevated LFTs
Abdominal pain
Plan:
cr is at 1.5 and remains grossly nonoliguric
BP soft, on low dose bb,but stable
Lasix continue
AC for R UE DVT
follow BMP
discharge planning in process
-
-
Date of Service: January 24, 2024
CC / HPI / ROS
-
Chief Complaint:
AR
History of present illness
Cr down to 1.5
hgb 8.4
Hemodynamically more stable
Review of Systems:
on RA
Grossly nonoliguric
pt denies sob or cp at rest
no fever
Labs
-
Labs:
WBC 10.0 10^3/uL (4.8-10.8) 01/24/24 06:09
RBC 3.13 10^6/uL (4.20-5.40) L 01/24/24 06:09
Hgb 8.4 g/dL (12.0-16.0) L 01/24/24 06:09
Hct 26.4 % (37.0-47.0) L 01/24/24 06:09
Plt Count 366 10^3/uL (130-400) 01/24/24 06:09
Sodium 139 mmol/L (135-145) 01/24/24 06:09
Potassium 4.8 mmol/L (3.5-5.1) 01/24/24 06:09
Chloride 106 mmol/L (98-107) 01/24/24 06:09
Carbon Dioxide 24 mmol/L (22-30) 01/24/24 06:09
BUN 59 mg/dl (7-17) H 01/24/24 06:09
Creatinine 1.5 mg/dL (0.6-1.0) H 01/24/24 06:09
eGFR 35.89 01/24/24 06:09
Glucose 154 mg/dl (70-99) H 01/24/24 06:09
Calcium 9.7 mg/dl (8.4-10.2) 01/24/24 06:09
Phosphorus 4.7 mg/dl (2.5-4.5) H 01/15/24 05:07
Xma-X-Mrvsykjupxp Pept Cancelled 01/14/24 14:05
Albumin 2.9 g/dl (3.5-5.0) L 01/24/24 06:09
Physical Exam
-
Vital Signs:
Vital Signs
Temp Pulse Resp BP Pulse Ox
98.2 F 72 17 146/79 98
01/24/24 07:00 01/24/24 08:57 01/24/24 07:00 01/24/24 08:57 01/24/24 07:00
Cardiovascular:: Regular rate and rhythm
Respiratory:: Bilateral: Coarse
Lung Excursion:: Normal
Abdomen:: Nontender and Soft
Bowel Sounds:: Normal
Extremity Edema:: +1: Bilateral:
Lawton Catheter: No
[2024-01-24 11:55] LABS: Glucose - Point of Care 301 mg/dl (70-99)
[2024-01-24] MEDS: NOVOLOG FLEXPEN-MODERATE RESISTANCE 7 UNITS SC (11:55)
--- NOTE | 2024-01-24 12:53 | CM ---
Reviewed chart. Placed a call to patient's spouse who stated that he is appealing discharge and was able to file the family appeal. He had no questions or concerns at this time.
Placed a call to Minda in admissions at [facility] to update. Minda requested updates and stated that she will have a hopeful bed upon hopeful receipt of auth.
Plan: Case management will continue to follow and assist with discharge planning. [place] if auth is obtained.
--- NOTE | 2024-01-24 13:49 | W.HF.CON ---
Heart Failure
- LV Function
Left ventricular function study result: LV Ejection fraction </= 35%
Ejection Fraction Percentage: 25-30
- ARNI
Patient already on ARNI: No
Heart Failure ARNI Contraindication: Acute Renal Failure, Hypotension
- ACEI/ARB
Patient already on ACEI/ARB: No
Heart Failure ACEI/ARB Contraindication: Acute Renal Failure, Hypotension
- Beta Nolan
Patient already on Evidence Based Beta Nolan: Yes
- Mineralocorticord Receptor Antagonist
Patient already on MRA: No
Heart Failure MRA Contraindication: Acute Renal Insufficiency, Hypotension
- SGLT-2 Inhibitor
Patient already on SGLT-2 Inhibitor: No
Heart Failure SGLT-2 Inhibitor Contraindication: eGFR < 25
- Afib Anticoagulation
Patient already on Anticoagulation for Afib: Yes
- NYHA CHF Classification
NYHA CHF Classification Level: Class III - Symptoms w/ min exertion, interferes w/ nml daily activity
- ACC/AHA Stage
ACC/AHA Stage: Stage C: Symptomatic Heart Failure
[2024-01-24 15:00] VITALS: BP 94/58
[2024-01-24] MEDS: TYLENOL 650 MG PO (16:04)
[2024-01-24 16:25] LABS: Glucose - Point of Care 240 mg/dl (70-99)
[2024-01-24] MEDS: NOVOLOG FLEXPEN-MODERATE RESISTANCE 3 UNITS SC (17:02)
[2024-01-24] MEDS: DEPAKOTE (12 HR RELEASE) 500 MG PO (17:06)
--- NOTE | 2024-01-24 17:47 | W.PN.HOSP.TC ---
Addendum entered and electronically signed by Felicitas Horton MD 01/24/24 18:53:
Patient seen and examined independently--known to me during this hospitalization--agree with plan set forth by Dr. Perez
GENERAL: well developed, well nourished, female in no apparent distress
HEENT: NC/AT--not on O2
HEART: regular rate and rhythm, +S1, +S2
LUNGS : clear to auscultation bilaterally
ABDOM: soft, nontender, nondistended, + bowel sounds
EXT: no cyanosis, clubbing, or edema (resolved)
NEUROLOGIC: grossly intact
acute respiratory distress 01/13/24 for flash pulm edema from rapid aflutter, rapid response called--transferred to ICU 01/12, placed on BiPAP, improved and downgraded to tele 01/15--off BiPAP and weaned off O2 during daytime--diurese per Card (see below)
Acute DVT right arm--midline removed, clot propagates into right IJ but is nonocclusive--Continue Eliquis for now, may continue at discharge given history of A-fib and RIJ DVT.
NSTEMI (TYPE II [place]) this admission--h/o CAD/multivessel disease and was refused bypass surgery at that time due to several risk factors--Follow up Echo 01/03 noted Severely reduced left ventricular systolic function, EF 25-30%. Mild pulmonary
hypertension--Trop peaked at 45.8--cardiac cath 01/11 noted chronic total occlusion of the proximal RCA and small lesions in proximal LAD/second diagonal- too small for intervention, no obvious cause for drop in EF
Paroxysmal A-fib--cont coreg 3.125 with holding parameter--s/p amio 400mg bid, now on 200 mg daily per card, plan to stop outpatient in 6-8 weeks--was not on anticoagulation as outpt given frequent falls, now on Eliquis for RIJ DVT
AR on CKD stage 3--SCr 2.1 -> 1.5 might be new basline, (baseline 1.0)--s/p IV Lasix, resumed PO lasix 20 mg daily per nephro==Nephrology appreciated.
Shock likely related to ischemic colitis and ESBL Klebsiella UTI, resolved--Shock liver and lactic acidosis- resolved--CT AP with PO contrast was unrevealing, noted constipation--s/p Bicarb drip per renal--off pressor Levophed since 01/08--off
Tylenol--Urine Cx from 01/06 grew ESBL Klebsiella--Finished ertapenem--s/p empiric PO vanco BID through 01/19 for h/o C diff colitis
Acute on now chronic systolic heart failure--Follow up Echo 01/03 noted Severely reduced left ventricular systolic function, EF 25-30%. Mild pulmonary hypertension--s/p cardiac cath 01/11--BL LE US neg for DVT--IV Lasix has been switched to PO 20 mg
daily with hold parameter--INFORMATION SYSTEMS CONSULTANT Coreg adjusted to 3.125 mg BID with hold parameter--INFORMATION SYSTEMS CONSULTANT nifedipine DC'ed
Labile BP possibly due to autonomic dysregulation--INFORMATION SYSTEMS CONSULTANT Coreg adjusted to 3.125 mg BID--Lasix with holding parameter--Monitor BP closely and consider IVF bolus for BP support if needed
Hyperkalemia--treated and resolved
Hypomagnesemia--repleted
Anemia of chronic disease--s/p 1 unit PRBC transfusion--Hgb 8.4--Monitor Hgb--Iron studies, B12, folate levels reviewed and acceptable--Cont empiric Protonix 40 IV BID
Hypocalcemia, repleted
Hypothyroidism--Continue levothyroxine
Hyperlipidemia--off statin, intolerant
Type 2 diabetes with Hypoglycemia, resolved --Continue Lantus 5 units HS--Continue aspart 5 units AC--Holding metformin during hospital stay (likely will not d/c on it due to creat of 1.5)--cover with ISS
Trigeminal neuralgia--Continue Depakote
Overactive bladder--On tolterodine at home
Chronic pain/fibromyalgia/depression--Continue duloxetine, mirtazapine
Cough following diet from initial presentation--pt seen by SPL, rec GI given pt's complaints of GERD without official dx or prescribed tx, as well as reported difficulty/coughing/choking with solids more than liquids--GI felt chronic intermittent
dysphagia could be related to esophagitis or presbyesophagus. Recommend Protonix 40mg daily. Can also check outpt EGD/colonoscopy for iron deficiency.
Clinical deconditioning due to shock--PT/OT rec SNF
code status --Full code
DVT prophylaxis� Eliquis
Dispo: pending--denied by insurance--peer to peer appeal failed--family appealing
Original Note:
Today's Communication/Plan
-
Continue Eliquis for now
Monitor H&H, BMP
Fall precautions
Disposition planning
Assessment / Plan
Assessment / Plan
Assessment: 78-year-old female admitted 01/02/2024 for bilateral LE edema and BNP in the 7000
A/P:
acute respiratory distress 01/13/24 for flash pulm edema from rapid aflutter, rapid response called
transferred to ICU 01/12, placed on BiPAP, improved and downgraded to tele 01/15
off BiPAP and weaned off O2 during daytime
diurese per Card (see below)
Acute DVT right arm
midline removed, clot propagates into right IJ but is nonocclusive
Continue Eliquis for now, may continue at discharge given history of A-fib and RIJ DVT.
NSTEMI (TYPE II TX) this admission
h/o CAD/multivessel disease and was refused bypass surgery at that time due to several risk factors
Follow up Echo 01/03 noted Severely reduced left ventricular systolic function, EF 25-30%. Mild pulmonary hypertension. Compared to the prior study earlier, EF is worsened
Trop peaked at 45.8
cardiac cath 01/11 noted chronic total occlusion of the proximal RCA and small lesions in proximal LAD/second diagonal- too small for intervention, no obvious cause for drop in EF
Paroxysmal A-fib
cont coreg 3.125 with holding parameter
s/p amio 400mg bid, now on 200 mg daily per card, plan to stop outpatient in 6-8 weeks
was not on anticoagulation as outpt given frequent falls , now on Eliquis for RIJ DVT
AR on CKD stage 3
SCr 2.1 -> 1.5 today, (baseline 1.0)
s/p IV Lasix, resumed PO lasix 20 mg daily per nephro.
Nephrology appreciated.
Shock likely related to ischemic colitis, resolved
Shock liver and lactic acidosis- resolved
CT AP with PO contrast was unrevealing, noted constipation
s/p Bicarb drip per renal
off pressor Levophed since 01/08
off Tylenol
Urine Cx from 01/06 grew ESBL Klebsiella
Finished ertapenem
s/p empiric PO vanco BID through 01/19 for h/o C diff colitis
Acute on chronic (now) systolic heart failure
BNP elevated
Follow up Echo 01/03 noted Severely reduced left ventricular systolic function, EF 25-30%. Mild pulmonary hypertension. Compared to the prior study earlier, EF is worsened
s/p cardiac cath 01/11
BL LE US neg for DVT
IV Lasix has been switched to PO 20 mg daily with hold parameter
INFORMATION SYSTEMS CONSULTANT Coreg adjusted to 3.125 mg BID with hold parameter
INFORMATION SYSTEMS CONSULTANT nifedipine DC'ed
Labile BP possibly due to autonomic dysregulation
INFORMATION SYSTEMS CONSULTANT Coreg adjusted to 3.125 mg BID
Lasix with holding parameter
Monitor BP closely and consider IVF bolus for BP support if needed
Hyperkalemia
treated and resolved
Hypomagnesemia
repleted
Anemia of chronic disease
s/p 1 unit PRBC transfusion
Hgb decreased from 8.6-8.4 today, Monitor Hgb
Iron studies, B12, folate levels reviewed and acceptable
Cont empiric Protonix 40 IV BID
# Hypocalcemia, repleted
# Hypothyroidism
Continue levothyroxine
# Hyperlipidemia
off statin, intolerant
# Type 2 diabetes
# Hypoglycemia, resolved
Continue Lantus 5 units HS
Continue aspart 5 units AC
Holding metformin during hospital stay
cover with ISS
# Trigeminal neuralgia
Continue Depakote
# Overactive bladder
On tolterodine at home
# Chronic pain/fibromyalgia/depression
Continue duloxetine, mirtazapine
# Cough following diet from initial presentation
pt seen by SPL, rec GI given pt's complaints of GERD without official dx or prescribed tx, as well as reported difficulty/coughing/choking with solids more than liquids.
GI felt chronic intermittent dysphagia could be related to esophagitis or presbyesophagus. Recommend Protonix 40mg daily. Can also check outpt EGD/colonoscopy for iron deficiency.
# Clinical deconditioning due to shock
PT/OT rec SNF
code status --Full code
DVT prophylaxis� Eliquis
Dispo: SNF per PT OT torie
DW CM
Anticipated Discharge: 24 - 48 hours
Subjective/Interval History
-
Date of Service: January 24, 2024
Objective Data
-
Labs:
Laboratory Results
01/24/24
06:09
WBC 10.0
Hgb 8.4 L
Hct 26.4 L
Plt Count 366
Sodium 139
Potassium 4.8
Chloride 106
Carbon Dioxide 24
BUN 59 H
Creatinine 1.5 H
Glucose 154 H
Calcium 9.7
Total Bilirubin 0.4
AST 27
ALT 94 H
Alkaline Phosphatase 85
Vital Signs:
Vital Signs
Temp Pulse Resp BP Pulse Ox
98.0 F 65 17 94/58 95
01/24/24 15:00 01/24/24 15:00 01/24/24 15:00 01/24/24 15:00 01/24/24 15:00
I&O
01/23/24 01/24/24 01/25/24
06:59 06:59 06:59
Intake Total 2099 2790 / 2790
Output Total 1949 / 1949 700 / 700 300 / 300
Balance 150 / 150 2089 -300 / -300
Review of Systems
-
All other systems: Reviewed and negative
Physical Exam
-
General: Well Developed, Well Nourished, No Apparent Distress, Comfortable and Appears Chronically Ill
HEENT: Normocephalic and Atraumatic
Respiratory: Clear to Auscultation and Non Labored Respirations; Negative Accessory Resp Muscle Use
Cardiac: Regular Rhythm and S1/S2; Negative Murmur
GI: Soft, Nontender, Nondistended and Normal Bowel Sounds
Musculoskeletal: No Clubbing, No Cyanosis, No Edema and Other (left arm edema much improved)
Skin: Warm
Neuro: Awake and Alert
Psych: Calm and Intact Judgement/Insight
Data Reviewed
-
Diagnostic Radiology: Image personally visualized and interpreted and Report Reviewed by me
CT Scan: Report Reviewed by me and Discussed with Physician
Ultrasound: Report Reviewed by me and Discussed with Physician
Medical Tests (Nuc Med, Echo etc): Report Reviewed by me (echo)
Labs: Labs Reviewed by me and Discussed with Physician
[2024-01-24 19:51] VITALS: BP 110/41
[2024-01-24 20:48] LABS: Glucose - Point of Care 204 mg/dl (70-99)
[2024-01-24] MEDS: FOLVITE 1 MG PO (21:24)
[2024-01-24] MEDS: LIDOCAINE 4% PATCH 1 PATCH TOPICAL (21:24)
[2024-01-24] MEDS: LANTUS 0.0500000000000000028 UNITS SC (21:25)
[2024-01-24] MEDS: REMERON 15 MG PO (21:25)
[2024-01-24] MEDS: SENOKOT-S 1 TABLET PO (21:37)
[2024-01-24 23:05] VITALS: BP 125/50
[2024-01-25 03:33] VITALS: BP 136/64
[2024-01-25 05:24] VITALS: BMI 25.4
[2024-01-25] MEDS: SYNTHROID 112 MCG PO (06:05)
[2024-01-25 06:48] LABS: % Basophils 2.1 % (0-2); % Eosinophils 8.8 % (0-6); % Immature Granulocytes 0.2 % (0-0.5); % Lymphocytes 28.2 % (20.5-51.1); % Monocytes 7.3 % (1.7-9.3); % Neutrophils 53.4 % (42.2-75.2); Absolute Basophils 0.2 10^3/uL (0-0.2); Absolute Eosinophils 0.7 10^3/uL (0-0.7); Absolute Lymphocytes 2.3 10^3/uL (1.2-3.4); Absolute Monocytes 0.6 10^3/uL (0.1-0.6); Absolute Neutrophils 4.4 10^3/uL (1.4-6.5); Hematocrit 26.6 % (37.0-47.0); Hemoglobin 8.6 g/dL (12.0-16.0); Mean Corp Hgb Conc. 32.3 g/dL (33.0-37.0); Mean Corpuscular Hgb 27.2 pg (27.0-31.0); Mean Corpuscular Volume 84.2 fL (81.0-99.0); Nucleated Red Blood Cells % 0 %; Platelet Count 341 10^3/uL (130-400); Red Blood Cell Count 3.16 10^6/uL (4.20-5.40); Red Cell Dist. Width 20.1 % (11.5-14.5); White Blood Cell Count 8.2 10^3/uL (4.8-10.8)
[2024-01-25 06:56] LABS: Blood Urea Nitrogen 60 mg/dl (7-17); Calcium 9.5 mg/dl (8.4-10.2); Carbon Dioxide 27 mmol/L (22-30); Chloride 107 mmol/L (98-107); Estimated Creatinine Clearance 26 ml/min; Glucose 134 mg/dl (70-99); Sodium 141 mmol/L (135-145); eGFR 38.99
[2024-01-25 07:00] VITALS: BP 127/47
[2024-01-25 07:02] LABS: Potassium 4.7 mmol/L (3.5-5.1)
[2024-01-25 08:28] LABS: Glucose - Point of Care 134 mg/dl (70-99)
[2024-01-25] MEDS: NOVOLOG FLEXPEN-MODERATE RESISTANCE SC (08:30)
[2024-01-25] MEDS: NOVOLOG FLEXPEN 5 UNITS SC ×3 (08:30→17:10)
[2024-01-25] MEDS: CYMBALTA DELAYED RELEASE 60 MG PO (08:30)
[2024-01-25] MEDS: ELIQUIS 5 MG PO ×2 (08:31→19:48)
[2024-01-25] MEDS: COREG 3.125 MG PO ×2 (08:31→19:48)
[2024-01-25] MEDS: LASIX 20 MG PO (08:31)
[2024-01-25] MEDS: VITAMIN D3 (cholecalciferol) 50 MCG PO (08:31)
[2024-01-25] MEDS: PROTONIX 40 MG PO (08:32)
[2024-01-25] MEDS: ASPIR LOW (ENTERIC COATED) 81 MG PO (08:32)
[2024-01-25] MEDS: B COMPLEX w/VITAMIN C 1 CAPLET PO (08:32)
[2024-01-25] MEDS: PACERONE 200 MG PO (08:32)
--- NOTE | 2024-01-25 09:08 | CM ---
Addendum entered by Marjan Lynch 01/26/24 10:44:
Please call report to [phone]/fax [phone]. Patient accepted for transfer today. VM left for patient son and [facility] completed with patient. Signed form placed on chart.
Addendum entered by Marjan Lynch 01/25/24 16:46:
[id number] appeals approved per son from Jennifer at [phone]. CM unable to confirm due to [facility] system issue and Minda at [facility] will continue to follow with CM for transfer as soon as medically appropriate and auth is
confirmed.
Addendum entered by Marjan Lynch 01/25/24 10:57:
CM spoke with patient son, no update about appeal. Family plan is home with VN/aids and they are working with [facility] to determine additional resources as well as referral to [facility]. Son to call them to review options. CM will call to [place] to review options.
Original Note:
Patient appeal remains under consideration per [facility]. CM will call again to attempt to update.
[2024-01-25 11:00] VITALS: BP 105/43
--- NOTE | 2024-01-25 11:19 | W.PN.HOSP.TC ---
Addendum entered and electronically signed by Felicitas Horton MD 01/25/24 19:12:
Patient seen and examined independently--known to me during this hospitalization--agree with plan set forth by Dr. Perez
GENERAL: well developed, well nourished, female in no apparent distress
HEENT: NC/AT--not on O2
HEART: regular rate and rhythm, +S1, +S2
LUNGS : clear to auscultation bilaterally
ABDOM: soft, nontender, nondistended, + bowel sounds
EXT: no cyanosis, clubbing, or edema (resolved)
NEUROLOGIC: grossly intact
acute respiratory distress 01/13/24 for flash pulm edema from rapid aflutter, rapid response called--transferred to ICU 01/12, placed on BiPAP, improved and downgraded to tele 01/15--off BiPAP and weaned off O2 during daytime--diurese per Card (see below)
Acute DVT right arm--midline removed, clot propagates into right IJ but is nonocclusive--Continue Eliquis for now, may continue at discharge given history of A-fib and RIJ DVT.
NSTEMI (TYPE II [place]) this admission--h/o CAD/multivessel disease and was refused bypass surgery at that time due to several risk factors--Follow up Echo 01/03 noted Severely reduced left ventricular systolic function, EF 25-30%. Mild pulmonary
hypertension--Trop peaked at 45.8--cardiac cath 01/11 noted chronic total occlusion of the proximal RCA and small lesions in proximal LAD/second diagonal- too small for intervention, no obvious cause for drop in EF
Paroxysmal A-fib--cont coreg 3.125 with holding parameters--s/p amio 400mg bid, now on 200 mg daily per card, plan to stop outpatient in 6-8 weeks--was not on anticoagulation as outpt given frequent falls, now on Eliquis for RIJ DVT
AR on CKD stage 3--SCr 2.1 -> 1.5 might be new baseline, (baseline 1.0)--s/p IV Lasix, resumed PO lasix 20 mg daily per nephro--Nephrology appreciated.
Shock likely related to ischemic colitis and ESBL Klebsiella UTI, resolved--Shock liver and lactic acidosis- resolved--CT AP with PO contrast was unrevealing, noted constipation--s/p Bicarb drip per renal--off pressor Levophed since 01/08--off
Tylenol--Urine Cx from 01/06 grew ESBL Klebsiella--Finished ertapenem--s/p empiric PO vanco BID through 01/19 for h/o C diff colitis
Acute on now chronic systolic heart failure--Follow up Echo 01/03 noted Severely reduced left ventricular systolic function, EF 25-30%. Mild pulmonary hypertension--s/p cardiac cath 01/11--BL LE US neg for DVT--IV Lasix has been switched to PO 20 mg
daily with hold parameter--TRA[employer] Coreg adjusted to 3.125 mg BID with hold parameter--TRA[employer] nifedipine DC'ed
Labile BP possibly due to autonomic dysregulation--TRAWL [employer]KER Coreg adjusted to 3.125 mg BID--Lasix with holding parameter--Monitor BP closely and consider IVF bolus for BP support if needed
Hyperkalemia--treated and resolved
Hypomagnesemia--repleted
Anemia of chronic disease--s/p 1 unit PRBC transfusion--Hgb 8.6--Monitor Hgb--Iron studies, B12, folate levels reviewed and acceptable--Cont empiric Protonix 40 IV BID
Hypocalcemia, repleted
Hypothyroidism--Continue levothyroxine
Hyperlipidemia--off statin, intolerant
Type 2 diabetes with Hypoglycemia, resolved --Continue Lantus 5 units HS--Continue aspart 5 units AC--Holding metformin during hospital stay (likely will not d/c on it due to creat of 1.5)--cover with ISS
Trigeminal neuralgia--Continue Depakote
Overactive bladder--On tolterodine at home
Chronic pain/fibromyalgia/depression--Continue duloxetine, mirtazapine
Cough following diet from initial presentation--pt seen by [facility], rec GI given pt's complaints of GERD without official dx or prescribed tx, as well as reported difficulty/coughing/choking with solids more than liquids--GI felt chronic intermittent
dysphagia could be related to esophagitis or presbyesophagus. Recommend Protonix 40mg daily. Can also check outpt EGD/colonoscopy for iron deficiency.
Clinical deconditioning due to shock--PT/OT rec SNF
code status --Full code
DVT prophylaxis� Eliquis
Dispo: awaiting SNF
Original Note:
Today's Communication/Plan
-
CBC in a.m.
BMP
Dispo planning
Assessment / Plan
Assessment / Plan
Assessment: 78-year-old female admitted 01/02/2024 for bilateral LE edema and BNP in the 7000
A/P:
Acute respiratory distress 01/13/24 for flash pulm edema from rapid aflutter, rapid response called
transferred to ICU 01/12, placed on BiPAP, improved and downgraded to tele 01/15
off BiPAP and weaned off O2 during daytime
diurese per Card (see below)
Acute DVT right arm
midline removed, clot propagates into right IJ but is nonocclusive
Continue Eliquis for now, may continue at discharge given history of A-fib and RIJ DVT.
NSTEMI (TYPE II [place]) this admission
h/o CAD/multivessel disease and was refused bypass surgery at that time due to several risk factors
Follow up Echo 01/03 noted Severely reduced left ventricular systolic function, EF 25-30%. Mild pulmonary hypertension. Compared to the prior study earlier, EF is worsened
Trop peaked at 45.8
cardiac cath 01/11 noted chronic total occlusion of the proximal RCA and small lesions in proximal LAD/second diagonal- too small for intervention, no obvious cause for drop in EF
Paroxysmal A-fib
cont coreg 3.125 with holding parameter
s/p amio 400mg bid, now on 200 mg daily per card, plan to stop outpatient in 6-8 weeks
was not on anticoagulation as outpt given frequent falls , now on Eliquis for RIJ DVT
AR on CKD stage 3
SCr 2.1 -> 1.4 today, (baseline 1.0)
s/p IV Lasix, resumed PO lasix 20 mg daily per nephro.
Nephrology appreciated.
Shock likely related to ischemic colitis, resolved
Shock liver and lactic acidosis- resolved
CT AP with PO contrast was unrevealing, noted constipation
s/p Bicarb drip per renal
off pressor Levophed since 01/08
off Tylenol
Urine Cx from 01/06 grew ESBL Klebsiella
Finished ertapenem
s/p empiric PO vanco BID through 01/19 for h/o C diff colitis
Acute on chronic (now) systolic heart failure
BNP elevated
Follow up Echo 01/03 noted Severely reduced left ventricular systolic function, EF 25-30%. Mild pulmonary hypertension. Compared to the prior study earlier, EF is worsened
s/p cardiac cath 01/11
BL LE US neg for DVT
IV Lasix has been switched to PO 20 mg daily with hold parameter
[employer] Coreg adjusted to 3.125 mg BID with hold parameter
[employer] nifedipine DC'ed
Labile BP possibly due to autonomic dysregulation
TRAWL [employer] Coreg adjusted to 3.125 mg BID
Lasix with holding parameter
Monitor BP closely and consider IVF bolus for BP support if needed
Hyperkalemia
treated and resolved
Hypomagnesemia
repleted
Anemia of chronic disease
s/p 1 unit PRBC transfusion
Hgb back to 8.6 today, Monitor Hgb
Iron studies, B12, folate levels reviewed and acceptable
Cont empiric Protonix 40 IV BID
Hypothyroidism
-Continue levothyroxine
Hyperlipidemia
-Off statin, intolerant
Type 2 diabetes
-Continue Lantus 5 units HS
-Continue aspart 5 units AC
-Holding metformin during hospital stay
-Cover with ISS
Trigeminal neuralgia
-Continue Depakote
Overactive bladder
-On tolterodine at home
Chronic pain/fibromyalgia/depression
-Continue duloxetine, mirtazapine
Cough following diet from initial presentation
-Pt seen by [facility], rec GI given pt's complaints of GERD without official dx or prescribed tx, as well as reported difficulty/coughing/choking with solids more than liquids.
-GI felt chronic intermittent dysphagia could be related to esophagitis or presbyesophagus. Recommend Protonix 40mg daily. Can also check outpt EGD/colonoscopy for iron deficiency.
Clinical deconditioning due to shock
-PT/OT rec SNF
code status --Full code
DVT prophylaxis� Eliquis
Dispo: SNF per PT OT torie
CM efforts appreciated
Anticipated Discharge: 24 - 48 hours
Subjective/Interval History
-
Date of Service: January 25, 2024
Objective Data
-
Labs:
Laboratory Results
01/25/24
06:16
WBC 8.2
Hgb 8.6 L
Hct 26.6 L
Plt Count 341
Sodium 141
Potassium 4.7
Chloride 107
Carbon Dioxide 27
BUN 60 H
Creatinine 1.4 H
Glucose 134 H
Calcium 9.5
Vital Signs:
Vital Signs
Temp Pulse Resp BP Pulse Ox
97.8 F 61 18 127/47 95
01/25/24 07:00 01/25/24 08:32 01/25/24 07:00 01/25/24 08:32 01/25/24 07:00
I&O
01/24/24 01/25/24 01/26/24
06:59 06:59 06:59
Intake Total 2790 / 2790 1800 / 1800
Output Total 700 / 700 1200 / 1200
Balance 2089 / 2089 600 / 600
Review of Systems
-
All other systems: Not reviewed unless documented
Constitutional: Reports No Symptoms; Denies Fever or Weakness
EENT: Reports No Symptoms Reported
Respiratory: Reports No Symptoms; Denies Cough, Trouble Breathing or Wheezing
Cardiac: Reports No Symptoms; Denies Chest Pain or Palpitations
Abdomen/GI: Reports No Symptoms; Denies Abdominal Pain, Nausea or Vomiting
Genitourinary: Reports No Symptoms
Hematologic / Lymphatic: Reports No Symptoms; Denies Bleeding
Physical Exam
-
General: Well Developed, Well Nourished, No Apparent Distress and Comfortable; Negative Fever or Chills
HEENT: Normocephalic, Atraumatic and Moist Mucous Membranes
Respiratory: Clear to Auscultation and Non Labored Respirations; Negative Accessory Resp Muscle Use
Cardiac: Regular Rhythm and S1/S2; Negative Murmur
GI: Soft, Nontender, Nondistended and Normal Bowel Sounds
Musculoskeletal: No Clubbing, No Cyanosis, No Edema and Other (left arm edema much improved)
Skin: Warm
Neuro: Awake, Alert and AO x 3
Psych: Calm and Intact Judgement/Insight
Data Reviewed
-
Diagnostic Radiology: Image personally visualized and interpreted and Report Reviewed by me
CT Scan: Report Reviewed by me and Discussed with Physician
Ultrasound: Report Reviewed by me and Discussed with Physician
Medical Tests (Nuc Med, Echo etc): Report Reviewed by me (echo)
Labs: Labs Reviewed by me and Discussed with Physician
[2024-01-25 11:50] LABS: Glucose - Point of Care 174 mg/dl (70-99)
[2024-01-25] MEDS: NOVOLOG FLEXPEN-MODERATE RESISTANCE 1 UNITS SC ×2 (12:48→17:10)
--- NOTE | 2024-01-25 12:54 | W.PN.NEPH.PH ---
Today's Communication / Plan
-
- sign off
Assessment/Plan
-
Impression:
Acute kidney injury
Baseline CKD3a (1.1)
History of recurrent UTI (ESBL)
Coronary artery disease with previous stenting procedure
Paroxysmal atrial fibrillation
History of CVA
Hypothyroidism
Diabetes mellitus type II
History of subdural hematoma
Trigeminal neuralgia
Multiple left shoulder surgeries with septic left shoulder hardware removal
Bladder dysfunction
Chronic pain/ fibromyalgia
Depression
Restless leg syndrome
Anemia
Hyperkalemia
Metabolic acidosis
Elevated LFTs
Abdominal pain
Plan:
cr is at 1.54 and remains grossly nonoliguric
BP soft, on low dose bb,but stable
Lasix continue
AC for R UE DVT
follow BMP
discharge planning in process
nephrology to sign off
-
-
Date of Service: January 25, 2024
CC / HPI / ROS
-
Chief Complaint:
AR
History of present illness
Cr down to 1.4
hgb 8.6
Hemodynamically more stable
Review of Systems:
on RA
Grossly nonoliguric
pt denies sob or cp at rest
no fever
Labs
-
Labs:
WBC 8.2 10^3/uL (4.8-10.8) 01/25/24 06:16
RBC 3.16 10^6/uL (4.20-5.40) L 01/25/24 06:16
Hgb 8.6 g/dL (12.0-16.0) L 01/25/24 06:16
Hct 26.6 % (37.0-47.0) L 01/25/24 06:16
Plt Count 341 10^3/uL (130-400) 01/25/24 06:16
Sodium 141 mmol/L (135-145) 01/25/24 06:16
Potassium 4.7 mmol/L (3.5-5.1) 01/25/24 06:16
Chloride 107 mmol/L (98-107) 01/25/24 06:16
Carbon Dioxide 27 mmol/L (22-30) 01/25/24 06:16
BUN 60 mg/dl (7-17) H 01/25/24 06:16
Creatinine 1.4 mg/dL (0.6-1.0) H 01/25/24 06:16
eGFR 38.99 01/25/24 06:16
Glucose 134 mg/dl (70-99) H 01/25/24 06:16
Calcium 9.5 mg/dl (8.4-10.2) 01/25/24 06:16
Phosphorus 4.7 mg/dl (2.5-4.5) H 01/15/24 05:07
Ail-W-Tbtmflgpgsq Pept Cancelled 01/14/24 14:05
Albumin 2.9 g/dl (3.5-5.0) L 01/24/24 06:09
Physical Exam
-
Vital Signs:
Vital Signs
Temp Pulse Resp BP Pulse Ox
97.4 F 79 18 105/43 92
01/25/24 11:00 01/25/24 11:00 01/25/24 11:00 01/25/24 11:00 01/25/24 11:00
Cardiovascular:: Regular rate and rhythm
Respiratory:: Bilateral: Coarse
Lung Excursion:: Normal
Abdomen:: Nontender and Soft
Bowel Sounds:: Normal
Extremity Edema:: None: Bilateral:
[place] Catheter: No
[2024-01-25 15:00] VITALS: BP 114/46
[2024-01-25 16:59] LABS: Glucose - Point of Care 163 mg/dl (70-99)
[2024-01-25] MEDS: DEPAKOTE (12 HR RELEASE) 500 MG PO (17:09)
[2024-01-25 19:47] VITALS: BP 119/58
[2024-01-25 21:07] LABS: Glucose - Point of Care 137 mg/dl (70-99)
[2024-01-25] MEDS: LANTUS 0.0500000000000000028 UNITS SC (21:23)
[2024-01-25] MEDS: REMERON 15 MG PO (21:23)
[2024-01-25] MEDS: FOLVITE 1 MG PO (21:23)
[2024-01-25] MEDS: LIDOCAINE 4% PATCH 1 PATCH TOPICAL (21:23)
[2024-01-25] MEDS: SENOKOT-S 1 TABLET PO (21:28)
[2024-01-25 23:16] VITALS: BP 135/88
[2024-01-26 03:55] VITALS: BP 134/88
[2024-01-26] MEDS: SYNTHROID 112 MCG PO (05:28)
[2024-01-26 06:00] VITALS: BMI 23.8
[2024-01-26 07:00] VITALS: BP 184/77
[2024-01-26 07:04] LABS: % Basophils 1.8 % (0-2); % Eosinophils 9.4 % (0-6); % Immature Granulocytes 0.1 % (0-0.5); % Lymphocytes 27.4 % (20.5-51.1); % Monocytes 5.8 % (1.7-9.3); % Neutrophils 55.5 % (42.2-75.2); Absolute Basophils 0.1 10^3/uL (0-0.2); Absolute Eosinophils 0.7 10^3/uL (0-0.7); Absolute Lymphocytes 2.1 10^3/uL (1.2-3.4); Absolute Monocytes 0.4 10^3/uL (0.1-0.6); Absolute Neutrophils 4.2 10^3/uL (1.4-6.5); Hematocrit 27.5 % (37.0-47.0); Hemoglobin 8.6 g/dL (12.0-16.0); Mean Corp Hgb Conc. 31.3 g/dL (33.0-37.0); Mean Corpuscular Hgb 26.7 pg (27.0-31.0); Mean Corpuscular Volume 85.4 fL (81.0-99.0); Mean Platelet Volume 10.9 fL (7.4-10.4); Nucleated Red Blood Cells % 0 %; Platelet Count 331 10^3/uL (130-400); Red Blood Cell Count 3.22 10^6/uL (4.20-5.40); Red Cell Dist. Width 19.9 % (11.5-14.5); White Blood Cell Count 7.6 10^3/uL (4.8-10.8)
[2024-01-26 07:30] LABS: Blood Urea Nitrogen 62 mg/dl (7-17); Calcium 9.8 mg/dl (8.4-10.2); Carbon Dioxide 27 mmol/L (22-30); Chloride 105 mmol/L (98-107); Estimated Creatinine Clearance 23 ml/min; Glucose 91 mg/dl (70-99); Potassium 4.7 mmol/L (3.5-5.1); Sodium 139 mmol/L (135-145); eGFR 33.22
[2024-01-26] MEDS: ASPIR LOW (ENTERIC COATED) 81 MG PO (08:30)
[2024-01-26] MEDS: ELIQUIS 5 MG PO (08:30)
[2024-01-26] MEDS: VITAMIN D3 (cholecalciferol) 50 MCG PO (08:30)
[2024-01-26] MEDS: CYMBALTA DELAYED RELEASE 60 MG PO (08:30)
[2024-01-26] MEDS: PROTONIX 40 MG PO (08:30)
[2024-01-26] MEDS: B COMPLEX w/VITAMIN C 1 CAPLET PO (08:30)
[2024-01-26] MEDS: COREG 3.125 MG PO (08:31)
[2024-01-26] MEDS: PACERONE 200 MG PO (08:31)
[2024-01-26] MEDS: LASIX 20 MG PO (08:31)
[2024-01-26] MEDS: NOVOLOG FLEXPEN-MODERATE RESISTANCE SC (08:41)
[2024-01-26] MEDS: NOVOLOG FLEXPEN 5 UNITS SC ×2 (08:42→12:01)
[2024-01-26 08:43] LABS: Glucose - Point of Care 104 mg/dl (70-99)
--- NOTE | 2024-01-26 09:11 | W.PN.HOSP.TC ---
Addendum entered and electronically signed by Felicitas Horton MD 01/26/24 14:43:
Patient seen and examined independently--known to me during this hospitalization--agree with plan set forth by Dr. Perez
GENERAL: well developed, well nourished, female in no apparent distress
HEENT: NC/AT--not on O2
HEART: regular rate and rhythm, +S1, +S2
LUNGS : clear to auscultation bilaterally
ABDOM: soft, nontender, nondistended, + bowel sounds
EXT: no cyanosis, clubbing, or edema (resolved)
NEUROLOGIC: grossly intact
acute respiratory distress 01/13/24 for flash pulm edema from rapid aflutter, rapid response called--transferred to ICU 01/12, placed on BiPAP, improved and downgraded to tele 01/15--off BiPAP and weaned off O2 during daytime--diurese per Card (see below)
Acute DVT right arm--midline removed, clot propagates into right IJ but is nonocclusive--Continue Eliquis for now, may continue at discharge given history of A-fib and RIJ DVT.
NSTEMI (TYPE II [place]) this admission--h/o CAD/multivessel disease and was refused bypass surgery at that time due to several risk factors--Follow up Echo 01/03 noted Severely reduced left ventricular systolic function, EF 25-30%. Mild pulmonary
hypertension--Trop peaked at 45.8--cardiac cath 01/11 noted chronic total occlusion of the proximal RCA and small lesions in proximal LAD/second diagonal- too small for intervention, no obvious cause for drop in EF
Paroxysmal A-fib--cont coreg 3.125 with holding parameters--s/p amio 400mg bid, now on 200 mg daily per card, plan to stop outpatient in 6-8 weeks--was not on anticoagulation as outpt given frequent falls, now on Eliquis for RIJ DVT
AR on CKD stage 3--SCr 2.1 -> 1.5 might be new baseline, (baseline 1.0)--s/p IV Lasix, resumed PO lasix 20 mg daily per nephro--Nephrology appreciated.
Shock likely related to ischemic colitis and ESBL Klebsiella UTI, resolved--Shock liver and lactic acidosis- resolved--CT AP with PO contrast was unrevealing, noted constipation--s/p Bicarb drip per renal--off pressor Levophed since 01/08--off
Tylenol--Urine Cx from 01/06 grew ESBL Klebsiella--Finished ertapenem--s/p empiric PO vanco BID through 01/19 for h/o C diff colitis
Acute on now chronic systolic heart failure--Follow up Echo 01/03 noted Severely reduced left ventricular systolic function, EF 25-30%. Mild pulmonary hypertension--s/p cardiac cath 01/11--BL LE US neg for DVT--IV Lasix has been switched to PO 20 mg
daily with hold parameter--[employer]ARD C[employer]IED ORTHODONTIST Coreg adjusted to 3.125 mg BID with hold parameter--BOARD CERTIFIED ORTHODONTIST nifedipine DC'ed
Labile BP possibly due to autonomic dysregulation--BOARD CERTIFIED ORTHODONTIST Coreg adjusted to 3.125 mg BID--Lasix with holding parameter--Monitor BP closely and consider IVF bolus for BP support if needed
Hyperkalemia--treated and resolved
Hypomagnesemia--repleted
Anemia of chronic disease--s/p 1 unit PRBC transfusion--Hgb 8.6--Monitor Hgb--Iron studies, B12, folate levels reviewed and acceptable--Cont empiric Protonix 40 IV BID
Hypocalcemia, repleted
Hypothyroidism--Continue levothyroxine
Hyperlipidemia--off statin, intolerant
Type 2 diabetes with Hypoglycemia, resolved --Continue Lantus 5 units HS--Continue aspart 5 units AC--Holding metformin during hospital stay (likely will not d/c on it due to creat of 1.5)--cover with ISS
Trigeminal neuralgia--Continue Depakote
Overactive bladder--On tolterodine at home
Chronic pain/fibromyalgia/depression--Continue duloxetine, mirtazapine
Cough following diet from initial presentation--pt seen by [facility], rec GI given pt's complaints of GERD without official dx or prescribed tx, as well as reported difficulty/coughing/choking with solids more than liquids--GI felt chronic intermittent
dysphagia could be related to esophagitis or presbyesophagus. Recommend Protonix 40mg daily. Can also check outpt EGD/colonoscopy for iron deficiency.
Clinical deconditioning due to shock--PT/OT rec SNF
code status --Full code
DVT prophylaxis� Eliquis
OK for d/c
Original Note:
Today's Communication/Plan
-
Discharge planning
Assessment / Plan
Assessment / Plan
Assessment: 78-year-old female admitted 01/02/2024 for bilateral LE edema and BNP in the 0
A/P:
Acute respiratory distress 01/13/24 for flash pulm edema from rapid aflutter, rapid response called
transferred to ICU 01/12, placed on BiPAP, improved and downgraded to tele 01/15
off BiPAP and weaned off O2 during daytime
diurese per Card (see below)
Acute DVT right arm
midline removed, clot propagates into right IJ but is nonocclusive
Continue Eliquis for now given history of A-fib and RIJ DVT.
NSTEMI (TYPE II [place]) this admission
h/o CAD/multivessel disease and was refused bypass surgery at that time due to several risk factors
Follow up Echo 01/03 noted Severely reduced left ventricular systolic function, EF 25-30%. Mild pulmonary hypertension. Compared to the prior study earlier, EF is worsened
Trop peaked at 45.8
cardiac cath 01/11 noted chronic total occlusion of the proximal RCA and small lesions in proximal LAD/second diagonal- too small for intervention, no obvious cause for drop in EF
Paroxysmal A-fib
cont coreg 3.125 with holding parameter
s/p amio 400mg bid, now on 200 mg daily per card, plan to stop outpatient in 6-8 weeks
was not on anticoagulation as outpt given frequent falls , now on Eliquis for RIJ DVT
AR on CKD stage 3
SCr 2.1 -> 1.6 today, (baseline 1.0)
s/p IV Lasix, resumed PO lasix 20 mg daily per nephro.
Nephrology appreciated.
Shock likely related to ischemic colitis, resolved
Shock liver and lactic acidosis- resolved
CT AP with PO contrast was unrevealing, noted constipation
s/p Bicarb drip per renal
off pressor Levophed since 01/08
off Tylenol
Urine Cx from 01/06 grew ESBL Klebsiella
Finished ertapenem
s/p empiric PO vanco BID through 01/19 for h/o C diff colitis
Acute on chronic (now) systolic heart failure
BNP elevated
Follow up Echo 01/03 noted Severely reduced left ventricular systolic function, EF 25-30%. Mild pulmonary hypertension. Compared to the prior study earlier, EF is worsened
s/p cardiac cath 01/11
BL LE US neg for DVT
IV Lasix has been switched to PO 20 mg daily with hold parameter
[employer]ARD CERTIFIED ORTHODONTIST Coreg adjusted to 3.125 mg BID with hold parameter
BOARD CERTIFIED ORTHODONTIST nifedipine DC'ed
Labile BP possibly due to autonomic dysregulation
BOARD CERTIFIED ORTHODONTIST Coreg adjusted to 3.125 mg BID
Lasix with holding parameter
Monitor BP closely and consider IVF bolus for BP support if needed
Hyperkalemia
treated and resolved
Hypomagnesemia
repleted
Anemia of chronic disease
s/p 1 unit PRBC transfusion
Hgb back to 8.6 today, Monitor Hgb
Iron studies, B12, folate levels reviewed and acceptable
Cont empiric Protonix 40 IV BID
Hypothyroidism
-Continue levothyroxine
Hyperlipidemia
-Off statin, intolerant
Type 2 diabetes
-Continue Lantus 5 units HS
-Continue aspart 5 units AC
-Holding metformin during hospital stay
-Cover with ISS
Trigeminal neuralgia
-Continue Depakote
Overactive bladder
-On tolterodine at home
Chronic pain/fibromyalgia/depression
-Continue duloxetine, mirtazapine
Cough following diet from initial presentation
-Pt seen by [facility], rec GI given pt's complaints of GERD without official dx or prescribed tx, as well as reported difficulty/coughing/choking with solids more than liquids.
-GI felt chronic intermittent dysphagia could be related to esophagitis or presbyesophagus. Recommend Protonix 40mg daily. Can also check outpt EGD/colonoscopy for iron deficiency.
Clinical deconditioning due to shock
-PT/OT rec SNF
code status --Full code
DVT prophylaxis� Eliquis
Dispo: SNF per PT OT torie
CM efforts appreciated
Anticipated Discharge: Today
Subjective/Interval History
-
Date of Service: January 26, 2024
Objective Data
-
Labs:
Laboratory Results
01/26/24
06:07
WBC 7.6
Hgb 8.6 L
Hct 27.5 L
Plt Count 331
Sodium 139
Potassium 4.7
Chloride 105
Carbon Dioxide 27
BUN 62 H
Creatinine 1.6 H
Glucose 91
Calcium 9.8
Vital Signs:
Vital Signs
Temp Pulse Resp BP Pulse Ox
97.8 F 71 18 184/77 92
01/26/24 07:00 01/26/24 08:31 01/26/24 07:00 01/26/24 08:31 01/26/24 07:00
I&O
01/25/24 01/26/24 01/27/24
06:59 06:59 06:59
Intake Total 1800 / 1800 720 / 720
Output Total 1200 / 1200 2200 / 2200
Balance 600 / 600 -1480 / -1480
Review of Systems
-
All other systems: Not reviewed unless documented
Constitutional: Reports No Symptoms; Denies Fever or Weakness
EENT: Reports No Symptoms Reported
Respiratory: Reports No Symptoms; Denies Cough, Trouble Breathing or Wheezing
Cardiac: Reports No Symptoms; Denies Chest Pain or Palpitations
Abdomen/GI: Reports No Symptoms; Denies Abdominal Pain, Nausea or Vomiting
Genitourinary: Reports No Symptoms
Hematologic / Lymphatic: Reports No Symptoms; Denies Bleeding
Physical Exam
-
General: Well Developed, Well Nourished, No Apparent Distress and Comfortable; Negative Fever or Chills
HEENT: Normocephalic, Atraumatic and Moist Mucous Membranes
Respiratory: Clear to Auscultation and Non Labored Respirations; Negative Accessory Resp Muscle Use
Cardiac: Regular Rhythm and S1/S2; Negative Murmur
GI: Soft, Nontender, Nondistended and Normal Bowel Sounds
Musculoskeletal: No Clubbing, No Cyanosis, No Edema and Other (left arm edema much improved)
Skin: Warm
Neuro: Awake, Alert and AO x 3
Psych: Calm and Intact Judgement/Insight
--- NOTE | 2024-01-26 10:05 | W.DCSUMMARY ---
Discharge Summary
Discharge Data
Date of Admission: 01/02/24
Date of Discharge: 01/26/24
-
Pending Results: No
Discharge Plan
-
Patient Disposition: [facility]NF
Discharge Diagnosis/Procedures: Acute on chronic (now) systolic heart failure; Cardiac cath 01/11 noted chronic total occlusion of the proximal RCA and small lesions in proximal LAD/second diagonal- too small for intervention; acute right arm deep
vein thrombosis; shock with ischemic colitis (resolving); type 2 diabetes
Condition: Fair
Diet: As tolerated and Diabetic, Carb Controlled
Activity: As tolerated
Driving Restrictions: Not until seen by your Dr
Others Tests: Right arm venous ultrasound in 4 weeks with your PCP to evaluate the Right proximal, mid brachial veins, and right internal jugular vein thrombosis.
Activity Restrictions/Additional Instructions:
Wound Care Instructions
L arm: clean with soap and water, Vaseline gauze and dry dressing change q other day and prn drainage.
Stand Alone Forms: DC Instructions- Cath/EP Lab
Referrals:
Cecille Louis CRNP [Specified Professional Personl] - 01/27/24 8:40 am
Ale Jung MD [Active] - (PASTORA and GERD in 4-6wks)
Argelia Narayanan NP [Family Provider] - in less than 1 week
Additional Discharge Medication Instructions: Continue amiodarone 200 mg daily and plan to stop in 6-8 weeks
Continue Eliquis for 3 months total given there is deep vein thrombosis in right internal jugular vein
Prescriptions:
New
sennosides-docusate sodium [Stool Softener-Stimulant Laxat] 8.6-50 mg Tablet
1 tab PO BID PRN (Reason: constipation) Qty: 0 0RF
polyethylene glycol 3350 [HealthyLax] 17 gram Powder In Packet
17 g PO BID PRN (Reason: constipation) Qty: 0 0RF
pantoprazole 40 mg Tablet,Delayed Release (Dr/Ec)
40 mg PO DAILY Qty: 0 0RF
cholecalciferol (vitamin D3) 50 mcg (2,000 unit) Tablet
50 mcg PO DAILY Qty: 0 0RF
Eliquis 5 mg Tablet
5 mg PO BID Qty: 0 0RF
carvedilol 3.125 mg Tablet
3.125 mg PO BID Qty: 0 0RF
Insulin Glargine Lantus [Lantus] 5 UNITS
Subcutaneous Insulin Syringe [Syringe-Insulin] 0 UNIT
As Directed mls/hr SC HS
Reason for use: Diabetes
Ordered By: Kamar Perez MD, Resident
Last Taken: 01/25/24 21:23 0.05 mls
lidocaine 4 % Adhesive Patch,Medicated
1 patch topical HS Qty: 0 0RF
insulin aspart U-100 100 unit/mL (3 mL) Insulin Pen
5 unit SC AC Qty: 0 0RF
furosemide 20 mg Tablet
20 mg PO DAILY Qty: 0 0RF
amiodarone [Pacerone] 200 mg Tablet
200 mg PO DAILY Qty: 0 0RF
Continued
atorvastatin [Lipitor] 40 mg Tablet
40 mg PO DAILY
divalproex 500 mg Tablet,Delayed Release (Dr/Ec)
500 mg PO QPM
aspirin 81 mg Tablet,Delayed Release (Dr/Ec)
81 mg PO DAILY
vitamin B complex Tablet
1 tab PO DAILY
folic acid 1 mg Tablet
1 mg PO HS
mirtazapine 15 mg Tablet
15 mg PO HS
levothyroxine [Synthroid] 112 mcg Tablet
112 mcg PO DAILY
duloxetine [Cymbalta] 60 mg Capsule,Delayed Release(Dr/Ec)
60 mg PO DAILY
nifedipine 30 mg Tablet Extended Release
30 mg PO DAILY Qty: 30 0RF
acetaminophen [Tylenol Extra Strength] 500 mg Tablet
1,000 mg PO Q6HPRN PRN (Reason: MILD PAIN)
Discontinued
carvedilol [Coreg] 3.125 mg Tablet
3.125 mg PO DAILY
magnesium oxide 400 mg magnesium Tablet
400 mg PO DAILY
tramadol 50 mg tablet
50 mg PO BIDPRN PRN (Reason: moderate pain)
Patient Comments:
12/08/2023: last filled 12/03/23, 14 tabs for [address] [facility]
tolterodine 2 mg tablet
2 mg PO HS
sodium bicarbonate 650 mg Tablet
650 mg PO BID Qty: 60 0RF
metformin 500 mg tablet
500 mg PO BID Qty: 60 0RF
Discharge Orders:
Discharge Patient (As Directed); Ordered 01/26/24
Ordered By: Kamar Perez
Discharge Date and Time
Print Language: YAKUT
[2024-01-26 11:00] VITALS: BP 176/76
[2024-01-26 11:29] LABS: Glucose - Point of Care 253 mg/dl (70-99)
[2024-01-26 11:52] LABS: Glucose - Point of Care 170 mg/dl (70-99)
[2024-01-26] MEDS: NOVOLOG FLEXPEN-MODERATE RESISTANCE 1 UNITS SC (12:01)
--- NOTE | 2024-01-26 13:43 | PTCARENOTE ---
RN called report [phone] at 1304 and 1342 no answer. Will attempt to call again, patient picked up from transportation.
--- NOTE | 2024-01-26 17:35 | W.DCSUMMARY ---
Discharge Summary
Discharge Data
Date of Admission: 01/02/24
Date of Discharge: 01/26/24
-
Pending Results: No
Hospital Course
Primary care physician : Mitchell Hahn/Argelia Narayanan
Principal Discharge diagnosis : Acute respiratory distress from flash pulmonary edema from rapid atrial flutter, acute deep venous thrombosis in the right arm, type II non-STEMI myocardial infarction, acute kidney injury on chronic kidney disease
stage III, shock related to ischemic colitis with ESBL (extended spectrum beta-lactamase) Klebsiella urinary tract infection, acute systolic congestive heart failure exacerbation, labile blood pressure likely due to autonomic dysregulation,
hyperkalemia, hypomagnesemia, hypocalcemia
Chronic Discharge diagnosis : Paroxysmal atrial fibrillation, chronic kidney disease stage III, chronic systolic congestive heart failure exacerbation, anemia of chronic disease, trigeminal neuralgia, hypothyroidism, hyperlipidemia, overactive
bladder, chronic pain/fibromyalgia/depression
Hospital Course : Patient is a 78-year-old female with a history of paroxysmal atrial fibrillation, chronic kidney disease stage III, previous stroke, essential hypertension, type 2 diabetes among other issues who presented with bilateral lower
extremity edema lasting for 2 weeks prior to admission. Lasix was discontinued while she was admitted 3 weeks ago due to kidney injury. Primary care physician asked her to call nephrology for restarting diuretics. She stated she could not get in
touch with them. The night prior to admission, she started having pain and took her 's hydrochlorothiazide. Workup in the emergency department showed her to have bilateral lower extremity edema, with a proBNP of 7000. Patient was admitted.
Problem #1: Bilateral lower extremity edema. This is the patient's admitting diagnosis. Is felt to be due to acute on chronic heart failure exacerbation. First found to be diastolic but transitioned to systolic during her hospitalization.
Bilateral lower extremity ultrasounds were checked and were negative for deep venous thrombosis. Patient was continued on IV Lasix which was subsequently held due to worsening acute kidney injury. Eventually patient's Lasix was restarted. She was
seen in consultation by both cardiology and nephrology. Echocardiogram showed severely reduced left ventricular systolic function with an ejection fraction of 25 to 30% and mild pulmonary hypertension. By the time of discharge, patient's edema was
much improved and patient was controlled on oral furosemide.
Problem #2: Acute systolic congestive heart failure exacerbation. Prior to this admission, patient had an echocardiogram with normal ejection fraction. Echocardiogram done on 01/04/2024 showed severely reduced left ventricular systolic function
with an ejection fraction of 25 to 30%. Because of the drop in ejection fraction, cardiac catheterization was performed on January 12, 2024. Perhaps, her drop in ejection fraction was due to the type II myocardial infarction/non-STEMI which happened
during this admission.
Problem #3: Type II non-STEMI myocardial infarction. Patient had a history of coronary disease with multivessel disease and unfortunately was not a candidate for bypass surgery due to her risk factors in the past. Patient had troponins checked
which peaked at 45.8. She was seen in consultation by cardiology. Cardiac catheterization was done January 12, 2024 without any obvious cause or need for stent placement. Medical management was optimized as best we could given her other clinical
issues. During her hospitalization, patient also developed paroxysmal atrial fibrillation. She was started on Coreg and amiodarone. This was adjusted due to acute kidney injury. She will be discharged on 200 mg daily. Patient did not remain on
anticoagulation due to history of frequent falls. Patient was discharged on Eliquis moving forward.
Problem #4: Acute kidney injury on chronic kidney disease stage III. This is likely due to a combination of shock with pressor dependent hypotension. Serum creatinine went from 2.1 down to discharge creatinine of 1.6 (her baseline is 1.0) this is
likely the new baseline as this has been stable for the last few days to a week prior to discharge. Patient was seen in consultation by nephrology. IV Lasix was continued, discontinued, and resumed p.o. Lasix at 20 mg/day.
Problem #5: Shock related to ischemic colitis with extended spectrum beta-lactamase resistant Klebsiella urinary tract infection. Patient developed septic shock with shock liver and lactic acidosis which was likely related to ischemic colitis.
Patient was complaining of abdominal pain and had a CAT scan of her abdomen and pelvis which was unrevealing but noted constipation. She was seen in consultation by nephrology, bicarb drip was started. Patient was upgraded to the intensive care
unit on January 06, 2024 and Levophed was started for blood pressure support. She remained on that until January 09, 2024. Urine culture noted on 01/07/2024 grew Klebsiella pneumoniae extended spectrum beta-lactamase resistant. Patient was seen in
consultation by infectious disease and was started on and finished a complete course of ertapenem prior to discharge. Patient had a history of C. difficile colitis as well, and empiric oral vancomycin twice daily was started and she completed that
course prior to discharge as well.
Problem #6: Acute respiratory distress with hypoxemic respiratory failure. Patient developed flash pulmonary edema with resultant acute respiratory distress requiring BiPAP. She was transferred to the intensive care unit on January 13, 2024. She was
diuresed, improved with BiPAP, and was transferred back to telemetry on January 16, 2024. She was off BiPAP during the day as well as oxygen. By the time of discharge came she was on room air.
Problem #7: Acute deep venous thrombosis in the right arm likely exacerbated by midline. Patient had a midline placed while here in the hospital. It was noted that her right arm was swollen. Ultrasound was done which showed right arm deep venous
thrombosis with a clot propagating into the right internal jugular vein. It was nonocclusive. Midline was removed and Eliquis started. Initial plans were to continue Eliquis for a short course; however, patient went into paroxysmal atrial
fibrillation and flutter and therefore she was discharged on Eliquis moving forward.
Problem #8: Electrolyte abnormalities including hyperkalemia/hypomagnesemia/hypocalcemia. These are followed and repleted as necessary.
Problem #9: All other medical issues. These include Paroxysmal atrial fibrillation, chronic kidney disease stage III, chronic systolic congestive heart failure exacerbation, anemia of chronic disease, trigeminal neuralgia, hypothyroidism,
hyperlipidemia, overactive bladder, chronic pain/fibromyalgia/depression. Unless otherwise documented, these medical issues are stable during her hospitalization. Medications were continued as able.
Patient is stable for discharge to rehab at this time. If there are any questions regarding this dictation or hospital stay, please Wednesday to call. Our office number is [phone].
Time for discharge 43 minutes.
Procedure findings :
01/12/24 CARDIAC CATH CONCLUSIONS
1. Right dominant circulation with chronic total occlusion of the proximal RCA, densely calcified 30% lesion in the proximal LAD, a long 30% lesion in the mid vessel and diffuse disease of the second diagonal which parallels the LAD and supplies
the apex but is too small for intervention, a small to medium size ramus that is diffusely diseased and not amenable to intervention and a 40% lesion in the origin of OM1.
2. Dilated left ventricle with severe global hypokinesis, perhaps worse in the apex with severe LV systolic dysfunction, LV ejection fraction 30%.
3. Severe mitral valve regurgitation.
4. Severely elevated filling pressures (LVEDP = 30 mmHg at 64.0 kg) with severe diastolic dysfunction (A wave to 45 mmHg).
5. No acute ischemic cause for sudden systolic dysfunction. Considerations include sepsis induced LV dysfunction versus Takotsubo variant versus postviral myocarditis (no history of URI, less likely).
RECOMMENDATIONS:
1. Expectant management after cardiac catheterization via right common femoral approach.
2. Limited weight bearing for one week.
3. Aggressive diuresis given severity of LVEDP and diastolic dysfunction.
4. Guideline directed medical therapy as hemodynamics will tolerate.
5. Close follow-up of severe mitral valve regurgitation.
01/04/24 ECHO CONCLUSIONS:
Normal biventricular size and systolic function without regional wall motion
abnormality.
Aortic sclerosis.
Dense mitral annular calcification of the posterior annulus.
No prior study available for comparison.
01/07/24 ECHO CONCLUSIONS:
Severely reduced left ventricular systolic function. Left ventricular ejection
fraction is 25-30% by Nolan's method of discs.
Anterior, basal to mid lateral le and apex are hypokinetic, no evidence of
LV thrombus with contrast.
Normal right ventricular size and function.
Mild pulmonary hypertension.
Compared to the prior study earlier today, the ejection fraction is worsened on
Contrast images, but overall appears similar. But, I suspect the difference is
due to image quality rather than further decline of LV function.
Discharge Plan
-
Patient Disposition: Long Term/SNF
Discharge Diagnosis/Procedures: Acute on chronic (now) systolic heart failure; Cardiac cath 01/11 noted chronic total occlusion of the proximal RCA and small lesions in proximal LAD/second diagonal- too small for intervention; acute right arm deep
vein thrombosis; shock with ischemic colitis (resolving); type 2 diabetes
Condition: Fair
Diet: As tolerated and Diabetic, Carb Controlled
Activity: As tolerated
Driving Restrictions: Not until seen by your Dr
Others Tests: Right arm venous ultrasound in 4 weeks with your PCP to evaluate the Right proximal, mid brachial veins, and right internal jugular vein thrombosis.
Activity Restrictions/Additional Instructions:
Wound Care Instructions
L arm: clean with soap and water, Vaseline gauze and dry dressing change q other day and prn drainage.
Stand Alone Forms: DC Instructions- Cath/EP Lab
Referrals:
Cecille Louis CRNP [Specified Professional Personl] - 01/27/24 8:40 am
Ale Jung MD [Active] - (PASTORA and GERD in 4-6wks)
Argelia Narayanan NP [Family Provider] - in less than 1 week
Additional Discharge Medication Instructions: Continue amiodarone 200 mg daily and plan to stop in 6-8 weeks
Continue Eliquis for 3 months total given there is deep vein thrombosis in right internal jugular vein
Prescriptions:
New
carvedilol 3.125 mg Tablet
3.125 mg PO BID Qty: 0 0RF
Eliquis 5 mg Tablet
5 mg PO BID Qty: 0 0RF
amiodarone [Pacerone] 200 mg Tablet
200 mg PO DAILY Qty: 0 0RF
sennosides-docusate sodium [Stool Softener-Stimulant Laxat] 8.6-50 mg Tablet
1 tab PO BID PRN (Reason: constipation) Qty: 0 0RF
furosemide 20 mg Tablet
20 mg PO DAILY Qty: 0 0RF
polyethylene glycol 3350 [HealthyLax] 17 gram Powder In Packet
17 g PO BID PRN (Reason: constipation) Qty: 0 0RF
pantoprazole 40 mg Tablet,Delayed Release (Dr/Ec)
40 mg PO DAILY Qty: 0 0RF
insulin aspart U-100 100 unit/mL (3 mL) Insulin Pen
5 unit SC AC Qty: 0 0RF
lidocaine 4 % Adhesive Patch,Medicated
1 patch topical HS Qty: 0 0RF
Insulin Glargine Lantus [Lantus] 5 UNITS
Subcutaneous Insulin Syringe [Syringe-Insulin] 0 UNIT
As Directed mls/hr SC HS
Reason for use: Diabetes
Ordered By: Kamar Perez MD, Resident
Last Taken: 01/25/24 21:23 0.05 mls
cholecalciferol (vitamin D3) 50 mcg (2,000 unit) Tablet
50 mcg PO DAILY Qty: 0 0RF
Continued
atorvastatin [Lipitor] 40 mg Tablet
40 mg PO DAILY
divalproex 500 mg Tablet,Delayed Release (Dr/Ec)
500 mg PO QPM
aspirin 81 mg Tablet,Delayed Release (Dr/Ec)
81 mg PO DAILY
vitamin B complex Tablet
1 tab PO DAILY
folic acid 1 mg Tablet
1 mg PO HS
mirtazapine 15 mg Tablet
15 mg PO HS
levothyroxine [Synthroid] 112 mcg Tablet
112 mcg PO DAILY
duloxetine [Cymbalta] 60 mg Capsule,Delayed Release(Dr/Ec)
60 mg PO DAILY
nifedipine 30 mg Tablet Extended Release
30 mg PO DAILY Qty: 30 0RF
acetaminophen [Tylenol Extra Strength] 500 mg Tablet
1,000 mg PO Q6HPRN PRN (Reason: MILD PAIN)
Discontinued
carvedilol [Coreg] 3.125 mg Tablet
3.125 mg PO DAILY
magnesium oxide 400 mg magnesium Tablet
400 mg PO DAILY
tramadol 50 mg tablet
50 mg PO BIDPRN PRN (Reason: moderate pain)
Patient Comments:
12/08/2023: last filled 12/03/23, 14 tabs for 7 days from [facility]
tolterodine 2 mg tablet
2 mg PO HS
sodium bicarbonate 650 mg Tablet
650 mg PO BID Qty: 60 0RF
metformin 500 mg tablet
500 mg PO BID Qty: 60 0RF
Discharge Orders:
Discharge Patient (As Directed); Ordered 01/26/24
Ordered By: Kamar Perez
Discharge Date and Time
Discharge Date/Time: 01/26/24 13:30
Print Language: LUXEMBOURGER
== END 2024-01-26 13:30 | DRG 280 ==
LOC: 3 WEST ACU 21:14
PROVIDERS: Internal Medicine; Internal Medicine Cardiovascular Disease; Internal Medicine Gastroenterology; Nurse Practitioner Family; Nurse Practitioner Gerontology; Physician Assistant; Radiology Vascular & Interventional Radiology; Registered Nurse; Specialist; Student in an Organized Health Care Education/Training Program; ADMITTING PHYSICIAN Internal Medicine; ATTENDING PHYSICIAN Internal Medicine; CONSULT PHYSICIAN Internal Medicine Cardiovascular Disease; CONSULT PHYSICIAN Internal Medicine Critical Care Medicine; CONSULT PHYSICIAN Internal Medicine Gastroenterology; CONSULT PHYSICIAN Specialist; CONSULT PHYSICIAN Surgery; EMERGENCY PHYSICIAN Student in an Organized Health Care Education/Training Program; FAMILY PHYSICIAN Nurse Practitioner Adult Health; OTHER PHYSICIAN Internal Medicine Critical Care Medicine; OTHER PHYSICIAN Student in an Organized Health Care Education/Training Program
PROC: 02HV33Z Insertion of Infusion Device into Superior Vena Cava, Percutaneous Approach (ICD-10-PCS; 2024-01-07)
PROC: 30233N1 Transfusion of Nonautologous Red Blood Cells into Peripheral Vein, Percutaneous Approach (ICD-10-PCS; 2024-01-09)
PROC: B2111ZZ Fluoroscopy of Multiple Coronary Arteries using Low Osmolar Contrast (ICD-10-PCS; 2024-01-12)
PROC: 4A023N7 Measurement of Cardiac Sampling and Pressure, Left Heart, Percutaneous Approach (ICD-10-PCS; 2024-01-12)
PROC: B2151ZZ Fluoroscopy of Left Heart using Low Osmolar Contrast (ICD-10-PCS; 2024-01-12)
PROC: 5A09357 Assistance with Respiratory Ventilation, Less than 24 Consecutive Hours, Continuous Positive Airway Pressure (ICD-10-PCS; 2024-01-13)
DX: I13.0 Hypertensive heart and chronic kidney disease with heart failure and stage 1 through stage 4 chronic kidney disease, or unspecified chronic kidney disease (principal); A41.9 Sepsis, unspecified organism; I21.A1 Myocardial infarction type 2; I50.43 Acute on chronic combined systolic (congestive) and diastolic (congestive) heart failure; K72.00 Acute and subacute hepatic failure without coma; N17.0 Acute kidney failure with tubular necrosis; R65.21 Severe sepsis with septic shock; J96.01 Acute respiratory failure with hypoxia; J96.02 Acute respiratory failure with hypercapnia; E87.20 Acidosis, unspecified; N39.0 Urinary tract infection, site not specified; K55.9 Vascular disorder of intestine, unspecified; I82.C11 Acute embolism and thrombosis of right internal jugular vein; I48.92 Unspecified atrial flutter; I48.0 Paroxysmal atrial fibrillation; N18.31 Chronic kidney disease, stage 3a; E78.00 Pure hypercholesterolemia, unspecified; D63.1 Anemia in chronic kidney disease; E11.22 Type 2 diabetes mellitus with diabetic chronic kidney disease; I25.10 Atherosclerotic heart disease of native coronary artery without angina pectoris; I44.7 Left bundle-branch block, unspecified; G47.33 Obstructive sleep apnea (adult) (pediatric); E03.9 Hypothyroidism, unspecified; F32.A Depression, unspecified; G50.0 Trigeminal neuralgia; G89.29 Other chronic pain; M79.7 Fibromyalgia; N32.81 Overactive bladder; R13.10 Dysphagia, unspecified; K21.9 Gastro-esophageal reflux disease without esophagitis; G25.81 Restless legs syndrome; E87.5 Hyperkalemia; I42.8 Other cardiomyopathies; E83.42 Hypomagnesemia; E83.51 Hypocalcemia; E11.65 Type 2 diabetes mellitus with hyperglycemia; I27.20 Pulmonary hypertension, unspecified; I08.0 Rheumatic disorders of both mitral and aortic valves; R29.6 Repeated falls; E11.649 Type 2 diabetes mellitus with hypoglycemia without coma; Z79.82 Long term (current) use of aspirin; Z79.84 Long term (current) use of oral hypoglycemic drugs; Z79.899 Other long term (current) drug therapy; Z86.73 Personal history of transient ischemic attack (TIA), and cerebral infarction without residual deficits; Z87.440 Personal history of urinary (tract) infections; Z87.891 Personal history of nicotine dependence; Z90.49 Acquired absence of other specified parts of digestive tract; Z95.5 Presence of coronary angioplasty implant and graft
CPT/HCPCS: 93308; 36556; 36600; 70450; 71045; 71046; 74018; 74176; 76937; 80048; 80053; 80076; 81003; 81015; 81099; 82150; 82248; 82306; 82330; 82570; 82607; 82728; 82746; 82805; 82947; 82962; 83540; 83550; 83605; 83690; 83735; 83880; 84100; 84300; 84484; 85014; 85018; 85025; 85027; 85379; 85610; 85730; 86803; 86850; 86900; 86901; 86920; 87040; 87070; 87077; 87086; 87186; 92526; 92610; 93005; 93306; 93321; 93325; 93970; 93971; 94660; 96374; 97110; 97162; 97166; 97530; 97535; 99152; 99153; 99285; C1751; C1894; J1335; J2916; P9016; Q9950; Q9967

== ENCOUNTER 2024-02-04 09:49 | Inpatient (IN) | payer MEDICARE, SELFPAY ==
[2024-02-04] VITALS (12 sets, daily range): BP systolic 87–144; BP diastolic 39–104; BMI 25.0
--- NOTE | 2024-02-04 10:30 | PTCARENOTE ---
Rec'd pt as a transfer from [facility]; Pt AAOx3 w/no CP or SOB, pt appears mildly dyspneic on exertion. Pt rec'd on 4L O2 via NC w/O2 sats 99-100%. O2 decreased to 2L to attempt to wean O2, as pt doesn't use Hm O2. Pt remains 96-97%
on 2L O2 via NC. VS stable w/HR in the 60's. BP 126/49. Pt in SR on telemetry monitoring, confirmed by EKG. Pt's son at bedside. Called [facility] & spoke to RNJudy for report. Pt w/PMH: ESBL in her urine, placed on contact precautions.
Pt w/call estrada within reach & plan of care ongoing.
--- NOTE | 2024-02-04 10:37 | HPS.HSE ---
Family Physician
-
Family Physician: Mitchell Hahn/Argelia Narayanan
Chief Complaint
-
symptomatic mitral regurgitation
History of Present Illness
Patient is a 78-year-old female who is here from January 02, 2024 through January 26, 2024 with a myriad of medical issues who was eventually discharged to alf facility for rehab. Patient is being accepted in transfer from an outside hospital
for evaluation of severe and symptomatic mitral regurgitation along with persistent hypoxemic respiratory failure and systolic congestive heart failure exacerbations. Plan is for CLARA to assess mitral regurgitation with possible MitraClip.
Medical History
Past Medical History
Past Medical History: Reports Other
Additional Past Medical History:
Bilateral lower extremity edema
Chronic systolic congestive heart failure, type II non-STEMI myocardial infarction
Type 2 diabetes mellitus
History of acute kidney injury on chronic kidney disease stage III, history of shock related to ischemic colitis and extended spectrum beta-lactamase resistant Klebsiella urinary tract infection
Acute deep venous thrombosis in the right arm exacerbated by midline placement
Acute hypoxemic respiratory failure with acute respiratory distress from flash pulmonary mariana
Hyperkalemia
Hypomagnesemia
Hypocalcemia
Paroxysmal atrial fibrillation
Anemia of chronic disease
Trigeminal neuralgia
Hypothyroidism
Hyperlipidemia
Overactive bladder
Chronic pain/fibromyalgia/depression
History of subdural hematoma
Coronary artery disease status post stents with left bundle branch block
Previous history of stroke
Obstructive sleep apnea
Essential hypertension
Past Surgical History: Reports Other
Additional Past Surgical History:
Left shoulder replacement complicated by septic shoulder
Social History
Tobacco: Non-smoker
Alcohol: None
Drug: None
Family History
Family History: Not pertinent
Allergies / Home Medications
Allergies reflects when Allergies were last updated in [employer].
Home Medications with original date entered in [employer]
Allergy/Medication List:
Allergies
Allergy/AdvReac Type Severity Reaction Status Date / Time
cephalexin Allergy Unknown Verified 01/02/24 13:57
ciprofloxacin Allergy Hives Verified 01/02/24 13:57
formaldehyde Allergy Shortness Verified 01/02/24 13:57
of Breath
Iodinated Contrast Media Allergy Hives Verified 01/02/24 13:57
metoprolol Allergy Itching Verified 01/02/24 13:57
Penicillins Allergy Unknown Verified 01/02/24 13:57
piperacillin [From Zosyn] Allergy Unknown Verified 01/02/24 13:57
pregabalin [From Lyrica] Allergy Hives Verified 01/02/24 13:57
shellfish derived Allergy Unknown Verified 01/02/24 13:57
Igykkew-YPC-DgL Reductase Allergy Unknown Verified 01/02/24 13:57
Inhibitor
Sulfa (Sulfonamide Allergy Unknown Verified 01/02/24 13:57
Antibiotics)
tazobactam [From Zosyn] Allergy Unknown Verified 01/02/24 13:57
vancomycin Allergy Rash Verified 01/02/24 13:57
Home Medications
aspirin 81 mg tablet,delayed release 81 mg PO DAILY Blood Clot Prevention/Tx 05/17/23
atorvastatin 40 mg tablet (Lipitor) 40 mg PO DAILY High Cholesterol 05/17/23
divalproex 500 mg tablet,delayed release 500 mg PO QPM Neurological Condition 05/17/23
duloxetine 60 mg capsule,delayed release (Cymbalta) 60 mg PO DAILY Neurological Condition 05/17/23
folic acid 1 mg tablet 1 mg PO HS Supplement 05/17/23
levothyroxine 112 mcg tablet (Synthroid) 112 mcg PO DAILY Thyroid 05/17/23
mirtazapine 15 mg tablet 15 mg PO HS Mental Health/Anxiety 05/17/23
vitamin B complex 1 tab PO DAILY Supplement 05/17/23
nifedipine 30 mg tablet,extended release 30 mg PO DAILY Blood pressure #30 tabs 05/22/23
acetaminophen 500 mg tablet (Tylenol Extra Strength) 1,000 mg PO Q6HPRN PRN MILD PAIN 01/02/24
Insulin Glargine Lantus [Lantus] 5 units As Directed mls/hr SC HS Diabetes 01/26/24
amiodarone 200 mg tablet (Pacerone) 200 mg PO DAILY Arrhythmia #0 tabs 01/26/24
apixaban 5 mg tablet (Eliquis) 5 mg PO BID Blood clot prevention/tx #0 tabs 01/26/24
carvedilol 3.125 mg tablet 3.125 mg PO BID Heart Failure #0 tabs 01/26/24
cholecalciferol (vitamin D3) 50 mcg (2,000 unit) tablet 50 mcg PO DAILY Supplement #0 tabs 01/26/24
furosemide 20 mg tablet 20 mg PO DAILY Heart Failure #0 tabs 01/26/24
insulin aspart U-100 100 unit/mL (3 mL) subcutaneous pen 5 unit (0.05 mL) SC AC Diabetes #0 mL 01/26/24
pantoprazole 40 mg tablet,delayed release 40 mg PO DAILY Gastrointestinal issue #0 tabs 01/26/24
polyethylene glycol 3350 17 gram oral powder packet (HealthyLax) 17 g PO BID PRN constipation #0 ea 01/26/24
sennosides 8.6 mg-docusate sodium 50 mg tablet (Stool Softener-Stimulant Laxative) 1 tab PO BID PRN constipation #0 tabs 01/26/24
lidocaine 4 % topical patch 2 patch topical HS pain 02/04/24
Review of Systems
-
History Source: Patient
A 12 point ROS was completed and negative except as noted: Yes
Constitutional: Reports No Symptoms
EENT: Reports No Symptoms
Respiratory: Reports No Symptoms
Cardiac: Reports No Symptoms
Abdomen/GI: Reports No Symptoms
: Reports No Symptoms
Musculoskeletal: Reports No Symptoms
Skin: Reports No Symptoms
Neurological: Reports No Symptoms
Endocrine: Reports No Symptoms
Hematologic/Lymphatic: Reports No Symptoms
Psych: Reports No Symptoms
Physical Exam
Vital Signs
Vital Signs
Temp Pulse Resp Pulse Ox
98.9 F 64 16 99
02/04/24 10:13 02/04/24 10:13 02/04/24 10:13 02/04/24 10:13
Physical Exam
General: Well Developed, Well Nourished and No Apparent Distress
HEENT: NormoCephalic, Anicteric and Oxygen
Respiratory: Clear; No Wheezes, Rales, Rhonchi or Crackles
Cardiac: S1/S2, Regular Rhythm and Murmur
GI: Soft, Non Tender, Non Distended and Normal Bowel Sounds
Musculoskeletal: No Clubbing, No Cyanosis and No Edema
Neuro: Awake and Alert
Psych: Calm
Impression/Plan
-
Pt is a 78 year old female
Symptomatic mitral regurgitation/severe--accepted in transfer from outside hospital, admit--consult cardiology--plan for CLARA
Hx of acute respiratory distress 01/13/24 for flash pulm edema from rapid aflutter--wean O2 as able--was on room air at last d/c to SNF
Hx DVT right arm exacerbated by midline last admission--Continue Eliquis
NSTEMI (TYPE II [place]) last admission--h/o CAD/multivessel disease and was refused bypass surgery due to several risk factors--Follow up Echo 01/03 noted Severely reduced left ventricular systolic function, EF 25-30%. Mild pulmonary hypertension--Trop
peaked at 45.8--cardiac cath 01/11 noted chronic total occlusion of the proximal RCA and small lesions in proximal LAD/second diagonal- too small for intervention
Paroxysmal A-fib--now in sinus by EKG and exam--cont coreg/amio --was not on anticoagulation as outpt given frequent falls, now on Eliquis
AR on CKD stage 3- 1.5 might be new baseline (labs reviewed from OSH show creat 1.7)--Lasix--may need reconsult renal--hold for now
Hx Shock last admission related to ischemic colitis and ESBL Klebsiella UTI finished all abx including vanco BID through 01/19 for h/o C diff colitis
chronic systolic heart failure--Follow up Echo 01/03 noted Severely reduced left ventricular systolic function, EF 25-30%. Mild pulmonary hypertension--s/p cardiac cath 01/11--BL LE neg for DVT
Anemia of chronic disease-- Protonix --HGB stable--was found not to be iron deficient
Hypothyroidism--Continue levothyroxine
Hyperlipidemia--off statin, intolerant
Type 2 diabetes-- Lantus 5 units HS/ISS coverage
Trigeminal neuralgia--Continue Depakote
Overactive bladder--On tolterodine
Chronic pain/fibromyalgia/depression--Continue duloxetine, mirtazapine--lidocaine patches
code status --Full code
DVT prophylaxis� Eliquis
[2024-02-04 11:03] LABS: Glucose - Point of Care 89 mg/dl (70-99)
--- NOTE | 2024-02-04 11:38 | PTCARENOTE ---
Report given to Tory in [employer]; pt transported via stretcher for CLARA.
[2024-02-04] MEDS: NOVOLOG FLEXPEN-LOW RESISTANCE SC (12:20)
[2024-02-04] MEDS: NOVOLOG FLEXPEN SC (12:20)
--- NOTE | 2024-02-04 12:43 | W.PN.UPDATE ---
Update Note
Progress Note Update
Pt sedated with Iv Propofol and CLARA probe passed into esophagus with no difficulty. Immediately after the CLARA probe was placed, the patient probably desaturated into the 30-40 oxygen saturation range. The CLARA probe was removed and the patient was
bagged with oxygen levels recovering back into the 98-100 range. The patient awoke and had no complaints with 95% oxygen saturation on 3L nc.
Will proceed with a transthoracic echo today. The patient will be optimized with medical therapy and IV diuresis and consideration for repeat CLARA on Wednesday.
--- NOTE | 2024-02-04 13:12 | PTCARENOTE ---
Patient returned from attempted CLARA. AAO, 98% on 3L NC, monitoring VS. at the bedside, call estrada in reach.
[2024-02-04 13:36] LABS: Glucose - Point of Care 79 mg/dl (70-99)
--- NOTE | 2024-02-04 14:19 | CM ---
Reviewed chart. Met with and Mrs. Teixeira to review discharge plans. She states prior to admission she was at [facility] for SNF/Rehab. She states she was there for a week. She states she normally resides with her spouse, daughter,
son-in-law and two grandchildren in a two story home with two steps to enter. She states she also has ramps to enter the home. She states she has to go up a full flight of steps to get to bedroom/full bathroom. She states she has a stair glide to
go up the stairs. She states she has a powder room on the first floor. She states prior to admission she was able to ambulate with a rolling walker. She states she has a rolling walker, stair glide and transport wheelchair at home. She states
she has a prescription plan. She states she has had [facility] in the past and if she needs VNA Services she would like to use [facility] again. If she needs SNF/Rehab. again she is not sure she will go back to [facility]. Will
need to see her current functional level to see if she will have any skilled care needs. She will need pre-cert with her insurance. Medical work-up in progress. The discharge plan is to return home with her family versus SNF/Rehab. when medically
stable.
--- NOTE | 2024-02-04 15:33 | CON.CAR ---
Consultation
Consultation Request
Date/Time Consultation Requested: 02-04-2024, 10AM
Date/Time Consultation Performed: 02-04-2024, 230PM
Requesting Provider: Whitney
Performing Provider: latanya
Reason for Consultation: SOB
Medical History
-
History of Present Illness:
Primary: Mitchell Colinord
Cardiology: Nicko Hayward
78 yo pt with multiple medical problems recently admitted to with pulmonary edema in the setting of AF/RVR. She was here01-01 to 01-25. Sent to rehab and was brought to [facility] 02-01 with what sounds like flash pulmonary edema. Diuresed with some
improvment in O2 requirement. Dr Rebolledo contacted Dr Alvarenga as he did cardiac cath showing severe LV dysfunction (EF estimated 30%), severe CAD not felt amenable to intervention and severe MR. The discussion was centered around the possibility of
offering mitraclip for her MR. Of note, TTE during that hospitalization did not suggest MR to be more than mild. Decision made to come to for further evaluation and treatment including CLARA. She arrived today and a few hours later was taken to
recovery room for CLARA. Once she was sedated a probe passed her O2 sat dropped in to 30s and probe immediately removed with scientologist of O2 sat to 95%.
Exam with BP 106/60, HR 64. Cor RR S1S2 faint systolic murmur. No loud MR murmur. Lungs with
basilar crackles otherwise clear. Ext without edema
IMP
PAF- now NSR
Ischemic CM
MR of unclear severity
Rec
Diurese with once daily IV lasix through
Attempt CLARA probably Wednesday
CCT 65 min with extensive review of records at , [facility] and review of cine films/prior echo.
Allergies / Home Medications
Allergy/AdvReac Type Severity Reaction Status Date / Time
cephalexin Allergy Unknown Verified 01/02/24 13:57
ciprofloxacin Allergy Hives Verified 01/02/24 13:57
formaldehyde Allergy Shortness Verified 01/02/24 13:57
of Breath
Iodinated Contrast Media Allergy Hives Verified 01/02/24 13:57
metoprolol Allergy Itching Verified 01/02/24 13:57
Penicillins Allergy Unknown Verified 01/02/24 13:57
piperacillin [From Zosyn] Allergy Unknown Verified 01/02/24 13:57
pregabalin [From Lyrica] Allergy Hives Verified 01/02/24 13:57
shellfish derived Allergy Unknown Verified 01/02/24 13:57
Zmvvfmd-QHT-EnN Reductase Allergy Unknown Verified 01/02/24 13:57
Inhibitor
Sulfa (Sulfonamide Allergy Unknown Verified 01/02/24 13:57
Antibiotics)
tazobactam [From Zosyn] Allergy Unknown Verified 01/02/24 13:57
vancomycin Allergy Rash Verified 01/02/24 13:57
�Medication �Instructions �Recorded �Confirmed �Type
aspirin 81 mg tablet,delayed 81 mg PO DAILY Blood Clot 05/17/23 02/04/24 History
release Prevention/Tx
atorvastatin 40 mg tablet (Lipitor) 40 mg PO DAILY High Cholesterol 05/17/23 02/04/24 History
divalproex 500 mg tablet,delayed 500 mg PO QPM Neurological 05/17/23 02/04/24 History
release Condition
duloxetine 60 mg capsule,delayed 60 mg PO DAILY Neurological 05/17/23 02/04/24 History
release (Cymbalta) Condition
folic acid 1 mg tablet 1 mg PO HS Supplement 05/17/23 02/04/24 History
levothyroxine 112 mcg tablet 112 mcg PO DAILY Thyroid 05/17/23 02/04/24 History
(Synthroid)
mirtazapine 15 mg tablet 15 mg PO HS Mental Health/Anxiety 05/17/23 02/04/24 History
vitamin B complex 1 tab PO DAILY Supplement 05/17/23 02/04/24 History
nifedipine 30 mg tablet,extended 30 mg PO DAILY Blood pressure #30 05/22/23 02/04/24 Rx
release tabs
acetaminophen 500 mg tablet 1,000 mg PO Q6HPRN PRN MILD PAIN 01/02/24 02/04/24 History
(Tylenol Extra Strength)
Insulin Glargine Lantus As Directed mls/hr SC HS Diabetes 01/26/24 02/04/24 Rx
[Lantus] 5 units
amiodarone 200 mg tablet (Pacerone) 200 mg PO DAILY Arrhythmia #0 tabs 01/26/24 02/04/24 Rx
apixaban 5 mg tablet (Eliquis) 5 mg PO BID Blood clot 01/26/24 02/04/24 Rx
prevention/tx #0 tabs
carvedilol 3.125 mg tablet 3.125 mg PO BID Heart Failure #0 01/26/24 02/04/24 Rx
tabs
cholecalciferol (vitamin D3) 50 50 mcg PO DAILY Supplement #0 tabs 01/26/24 02/04/24 Rx
mcg (2,000 unit) tablet
furosemide 20 mg tablet 20 mg PO DAILY Heart Failure #0 01/26/24 02/04/24 Rx
tabs
insulin aspart U-100 100 unit/mL 5 unit (0.05 mL) SC AC Diabetes #0 01/26/24 02/04/24 Rx
(3 mL) subcutaneous pen mL
pantoprazole 40 mg tablet,delayed 40 mg PO DAILY Gastrointestinal 01/26/24 02/04/24 Rx
release issue #0 tabs
polyethylene glycol 3350 17 gram 17 g PO BID PRN constipation #0 ea 01/26/24 02/04/24 Rx
oral powder packet (HealthyLax)
sennosides 8.6 mg-docusate sodium 1 tab PO BID PRN constipation #0 01/26/24 02/04/24 Rx
50 mg tablet (Stool tabs
Softener-Stimulant Laxative)
lidocaine 4 % topical patch 2 patch topical HS pain 02/04/24 02/04/24 History
Physical Exam
Vital Signs
Temp Pulse Resp BP Pulse Ox
98.9 F 64 16 87/39 96
02/04/24 10:13 02/04/24 14:30 02/04/24 10:13 02/04/24 14:30 02/04/24 14:15
[2024-02-04 16:57] LABS: Glucose - Point of Care 221 mg/dl (70-99)
[2024-02-04] MEDS: LASIX 40 MG IV (17:00)
[2024-02-04] MEDS: NOVOLOG FLEXPEN 5 UNITS SC (17:01)
[2024-02-04] MEDS: NOVOLOG FLEXPEN-LOW RESISTANCE 2 UNITS SC (17:02)
[2024-02-04] MEDS: DEPAKOTE (12 HR RELEASE) 500 MG PO (18:33)
[2024-02-04] MEDS: COREG 3.125 MG PO (20:45)
[2024-02-04] MEDS: FOLVITE 1 MG PO (20:45)
[2024-02-04] MEDS: REMERON 15 MG PO (20:45)
[2024-02-04] MEDS: LIDOCAINE 4% PATCH 2 PATCH TOPICAL (20:45)
[2024-02-04] MEDS: ELIQUIS 5 MG PO (20:45)
[2024-02-04 22:19] LABS: Glucose - Point of Care 234 mg/dl (70-99)
[2024-02-05] VITALS (10 sets, daily range): BP systolic 101–135; BP diastolic 42–61; PULSE 59–62; O2SAT 95–96; BMI 24.5
[2024-02-05] MEDS: SYNTHROID 112 MCG PO (04:26)
[2024-02-05 05:09] LABS: Hematocrit 28.4 % (37.0-47.0); Mean Corp Hgb Conc. 31.7 g/dL (33.0-37.0); Mean Corpuscular Hgb 25.9 pg (27.0-31.0); Mean Corpuscular Volume 81.8 fL (81.0-99.0); Mean Platelet Volume 10.9 fL (7.4-10.4); Platelet Count 300 10^3/uL (130-400); Red Blood Cell Count 3.47 10^6/uL (4.20-5.40); Red Cell Dist. Width 18.2 % (11.5-14.5); White Blood Cell Count 6.7 10^3/uL (4.8-10.8)
[2024-02-05 05:37] LABS: ALT (SGPT) 25 U/L (0-35); AST (SGOT) 21 U/L (14-36); Albumin 3.3 g/dl (3.5-5.0); Alkaline Phosphatase 85 U/L (38-126); Blood Urea Nitrogen 58 mg/dl (7-17); Calcium 9.2 mg/dl (8.4-10.2); Carbon Dioxide 30 mmol/L (22-30); Chloride 100 mmol/L (98-107); Estimated Creatinine Clearance 24 ml/min; Glucose 147 mg/dl (70-99); Magnesium 1.6 mg/dl (1.6-2.3); Potassium 4.3 mmol/L (3.5-5.1); Sodium 138 mmol/L (135-145); Total Bilirubin 0.3 mg/dl (0.2-1.3); Total Protein 6.2 g/dl (6.3-8.2); eGFR 35.89
[2024-02-05] MEDS: COREG 3.125 MG PO ×2 (08:22→22:14)
[2024-02-05] MEDS: ASPIR LOW (ENTERIC COATED) 81 MG PO (08:22)
[2024-02-05] MEDS: LIPITOR 40 MG PO (08:22)
[2024-02-05] MEDS: B COMPLEX w/VITAMIN C 1 CAPLET PO (08:22)
[2024-02-05] MEDS: ELIQUIS 5 MG PO ×2 (08:23→19:02)
[2024-02-05] MEDS: LASIX 40 MG IV ×2 (08:23→16:13)
[2024-02-05] MEDS: PACERONE 200 MG PO (08:23)
[2024-02-05] MEDS: PROTONIX 40 MG PO (08:23)
[2024-02-05] MEDS: CYMBALTA DELAYED RELEASE 60 MG PO (08:23)
[2024-02-05] MEDS: VITAMIN D3 (cholecalciferol) 50 MCG PO (08:23)
[2024-02-05] MEDS: PROCARDIA XL (EXTENDED RELEASE) 30 MG PO (08:23)
[2024-02-05 08:40] LABS: Glucose - Point of Care 171 mg/dl (70-99)
--- NOTE | 2024-02-05 08:53 | W.PN.HOSP.TC ---
Today's Communication/Plan
-
IV diuresis BID
Assessment / Plan
Assessment / Plan
pt is a 78 year old female
Symptomatic mitral regurgitation/severe--accepted in transfer from outside hospital--apprec cardiology--s/p CLARA with desaturation--IV diuresis with plan to try again Wednesday
Hx of acute respiratory distress 01/13/24 for flash pulm edema from rapid aflutter--wean O2 as able--was on room air at last d/c to SNF
Hx DVT right arm exacerbated by midline last admission--Continue Eliquis
NSTEMI (TYPE II [place]) last admission--h/o CAD/multivessel disease and was refused bypass surgery due to several risk factors--Follow up Echo 01/03 noted Severely reduced left ventricular systolic function, EF 25-30%. Mild pulmonary hypertension--Trop
peaked at 45.8--cardiac cath 01/11 noted chronic total occlusion of the proximal RCA and small lesions in proximal LAD/second diagonal- too small for intervention
Paroxysmal A-fib--now in sinus by EKG and exam--cont coreg/amio --was not on anticoagulation as outpt given frequent falls, now on Eliquis
AR on CKD stage 3- 1.5 likely new baseline (labs reviewed from OSH show creat 1.7)--Lasix--may need reconsult renal--hold for now
Hx Shock last admission related to ischemic colitis and ESBL Klebsiella UTI finished all abx including vanco BID through 01/19 for h/o C diff colitis
chronic systolic heart failure--Follow up Echo 01/03 noted Severely reduced left ventricular systolic function, EF 25-30%. Mild pulmonary hypertension--s/p cardiac cath 01/11--BL LE US neg for DVT
Anemia of chronic disease-- Protonix --HGB stable--was found not to be iron deficient
Hypothyroidism--Continue levothyroxine
Hyperlipidemia--off statin, intolerant
Type 2 diabetes-- Lantus 5 units HS/ISS coverage
Trigeminal neuralgia--Continue Depakote
Overactive bladder--On tolterodine
Chronic pain/fibromyalgia/depression--Continue duloxetine, mirtazapine--lidocaine patches
code status --Full code
DVT prophylaxis� Eliquis
Anticipated Discharge: > 48 hours
Subjective/Interval History
-
Date of Service: February 05, 2024
pt desaturated during CLARA so now on IV diuresis--will try again Wednesday
Objective Data
-
Labs:
Laboratory Results
02/05/24
04:09
WBC 6.7
Hgb 9.0 L
Hct 28.4 L
Plt Count 300
Sodium 138
Potassium 4.3
Chloride 100
Carbon Dioxide 30
BUN 58 H
Creatinine 1.5 H
Glucose 147 H
Calcium 9.2
Total Bilirubin 0.3
AST 21
ALT 25
Alkaline Phosphatase 85
Vital Signs:
max temp for 24 hours
02/04/24
11:39 02/05/24
04:03 02/05/24
06:00
Temp 99.1 F
Actual Weight 60 kg 58.7 kg
Temp Pulse Resp BP Pulse Ox
98.3 F 66 18 123/43 98
02/05/24 07:27 02/05/24 08:23 02/05/24 07:27 02/05/24 08:23 02/05/24 07:27
I&O
02/04/24 02/05/24 02/06/24
06:59 06:59 06:59
Output Total 1450 / 1450
Balance -1450 / -1450
Review of Systems
-
All other systems: Reviewed and negative
Physical Exam
-
General: Well Developed, Well Nourished and No Apparent Distress
HEENT: Normocephalic, Atraumatic and Oxygen
Respiratory: Clear to Auscultation; Negative Wheezes, Rales, Rhonchi or Crackles
Cardiac: Regular Rhythm, S1/S2 and Murmur
GI: Soft, Nontender, Nondistended and Normal Bowel Sounds
Musculoskeletal: No Clubbing, No Cyanosis and No Edema
Neuro: Awake and Alert
Psych: Calm
[2024-02-05] MEDS: NOVOLOG FLEXPEN-LOW RESISTANCE 1 UNITS SC (09:06)
[2024-02-05] MEDS: NOVOLOG FLEXPEN 5 UNITS SC ×3 (09:06→16:58)
[2024-02-05 09:49] LABS: Glycohemoglobin (HgbA1c) 7.2 % (4.0-5.6)
--- NOTE | 2024-02-05 10:52 | W.PN.CD ---
Today's Communication / Plan
-
Cont IV diuresis
Possible SGLT2i and ARB tomorrow
Impression / Plan
-
78-year-old female with history of paroxysmal AF, ischemic cardiomyopathy EF 25 to 30%, MR, who was recently hospitalized because of pulmonary edema and atrial fibrillation and admitted 01/02/2024 with chief complaint of edema. Complex
hospitalization with hypotension, shock, and abdominal pain. She was transferred for further evaluation of pulmonary edema and severe MR with possibility of MitraClip evaluation. Unfortunately, CLARA attempted on February 03 resulted in significant
hypoxia and unable to assess MR.
Acute on chronic HFrEF (EF 25-30%)/ICMO:
- GDMT: carvedilol 3.125 mg bid, SGLT2i/ARNi/MRA not given 2/2 Cr and hypotension
- However, on nifedipine will try and transition to ARB/ARNi this admit
-LVEF 01/04/2024: Normal and on 01/07/2024: 25-30% with extensive anterior, lateral, and apical wall motion changes (Echo IV contrast); no sig valve disease noted
- Severe MR? --> CLARA Wednesday for possible eval MitraClip
Paroxysmal Afib controlled
- in SR
- cont coreg and amio
- on apixaban 5 mg bid
Known complex CAD and in past was not a CABG candidate:
- Records from [facility]/Dr Mejia 04/06/2023 reviewed
- Last cath seems to have been an Impella supported Left Main PCI with a HEMAL (4x12 Promus) in 08/2019
- Cath 08/2019: 50-60 LM, 80 LAD, 80 Ramus, 100 RCA
- Cath this admit 01/12/2024 => stable CAD => LM stent patent. RCA SPINNING FRAME CHANGER
-Continue ASA 81 mg daily.
-Statin-intolerant.
Physical Exam
Vital Signs/Labs
Vital Signs
Temp Pulse Resp BP Pulse Ox
98.3 F 66 18 123/43 98
02/05/24 07:27 02/05/24 08:23 02/05/24 07:27 02/05/24 08:23 02/05/24 07:27
02/04/24 02/05/24 02/06/24
06:59 06:59 06:59
Actual Weight 129 lb 6.581 oz
02/05/24 04:09
02/05/24 04:09
Magnesium 1.6 mg/dl (1.6-2.3) 02/05/24 04:09
Physical Exam
Constitutional: No acute distress
Cardiovascular: Rhythm & rate is regular and Pedal edema is absent
Respiratory: Respiratory effort normal and Other (mild crackles b/l)
GI: Soft
Neuro/Psych: AO x 3
Data Reviewed
-
Date of Service: February 05, 2024
EKG: Tracing Personally Visualized and interpreted
Echo: Report Reviewed by me
Labs: Labs Reviewed by me
[2024-02-05 12:09] LABS: Glucose - Point of Care 218 mg/dl (70-99)
[2024-02-05] MEDS: NOVOLOG FLEXPEN-LOW RESISTANCE 2 UNITS SC ×2 (12:33→16:58)
[2024-02-05 16:38] LABS: Glucose - Point of Care 222 mg/dl (70-99)
[2024-02-05] MEDS: DEPAKOTE (12 HR RELEASE) 500 MG PO (18:20)
[2024-02-05 22:08] LABS: Glucose - Point of Care 187 mg/dl (70-99)
[2024-02-05] MEDS: REMERON 15 MG PO (22:14)
[2024-02-05] MEDS: FOLVITE 1 MG PO (22:14)
[2024-02-05] MEDS: LIDOCAINE 4% PATCH 2 PATCH TOPICAL (22:15)
[2024-02-06 04:51] VITALS: BP 134/45
[2024-02-06 05:11] LABS: Hemoglobin 9.5 g/dL (12.0-16.0); Mean Corp Hgb Conc. 32.8 g/dL (33.0-37.0); Mean Corpuscular Hgb 26.5 pg (27.0-31.0); Mean Corpuscular Volume 80.8 fL (81.0-99.0); Mean Platelet Volume 10.5 fL (7.4-10.4); Platelet Count 310 10^3/uL (130-400); Red Blood Cell Count 3.59 10^6/uL (4.20-5.40); Red Cell Dist. Width 18.1 % (11.5-14.5); White Blood Cell Count 7.3 10^3/uL (4.8-10.8)
[2024-02-06 05:18] VITALS: BMI 23.9
[2024-02-06 05:33] LABS: Blood Urea Nitrogen 65 mg/dl (7-17); Calcium 9.3 mg/dl (8.4-10.2); Carbon Dioxide 29 mmol/L (22-30); Chloride 99 mmol/L (98-107); Estimated Creatinine Clearance 23 ml/min; Glucose 197 mg/dl (70-99); Magnesium 1.7 mg/dl (1.6-2.3); Potassium 3.9 mmol/L (3.5-5.1); Sodium 137 mmol/L (135-145); eGFR 33.22
[2024-02-06] MEDS: SYNTHROID 112 MCG PO (06:04)
[2024-02-06] MEDS: CYMBALTA DELAYED RELEASE 60 MG PO (08:58)
[2024-02-06 09:00] VITALS: BP 106/66
[2024-02-06] MEDS: PROTONIX 40 MG PO (09:00)
[2024-02-06] MEDS: ASPIR LOW (ENTERIC COATED) 81 MG PO (09:01)
[2024-02-06] MEDS: ELIQUIS 5 MG PO ×2 (09:01→20:03)
[2024-02-06] MEDS: LIPITOR 40 MG PO (09:01)
[2024-02-06] MEDS: VITAMIN D3 (cholecalciferol) 50 MCG PO (09:01)
[2024-02-06] MEDS: B COMPLEX w/VITAMIN C 1 CAPLET PO (09:01)
[2024-02-06] MEDS: LASIX 40 MG IV ×2 (09:06→15:34)
[2024-02-06] MEDS: PACERONE 200 MG PO (09:06)
[2024-02-06] MEDS: COREG PO (09:07)
[2024-02-06] MEDS: PROCARDIA XL (EXTENDED RELEASE) PO (09:07)
--- NOTE | 2024-02-06 10:17 | W.PN.HOSP.TC ---
Today's Communication/Plan
-
cont diuresis
wean O2
prep for CLARA in AM
Assessment / Plan
Assessment / Plan
pt is a 78 year old female
Symptomatic mitral regurgitation/severe--accepted in transfer from outside hospital--apprec cardiology--s/p CLARA with desaturation--IV diuresis with plan to try again Wednesday
Hx of acute respiratory distress 01/13/24 for flash pulm edema from rapid aflutter--wean O2 as able--was on room air at last d/c to SNF
Hx DVT right arm exacerbated by midline last admission--Continue Eliquis
NSTEMI (TYPE II [place]) last admission--h/o CAD/multivessel disease and was refused bypass surgery due to several risk factors--Follow up Echo 01/03 noted Severely reduced left ventricular systolic function, EF 25-30%. Mild pulmonary hypertension--Trop
peaked at 45.8--cardiac cath 01/11 noted chronic total occlusion of the proximal RCA and small lesions in proximal LAD/second diagonal- too small for intervention
Paroxysmal A-fib--now in sinus by EKG and exam--cont coreg/amio --was not on anticoagulation as outpt given frequent falls, now on Eliquis
AR on CKD stage 3- 1.5 likely new baseline (labs reviewed from OSH show creat 1.7)--Lasix--may need reconsult renal--hold for now
Hx Shock last admission related to ischemic colitis and ESBL Klebsiella UTI finished all abx including vanco BID through 01/19 for h/o C diff colitis
chronic systolic heart failure--Follow up Echo 01/03 noted Severely reduced left ventricular systolic function, EF 25-30%. Mild pulmonary hypertension--s/p cardiac cath 01/11--BL LE US neg for DVT
Anemia of chronic disease-- Protonix --HGB stable--was found not to be iron deficient
Hypothyroidism--Continue levothyroxine
Hyperlipidemia--off statin, intolerant
Type 2 diabetes-- Lantus 5 units HS/ISS coverage
Trigeminal neuralgia--Continue Depakote
Overactive bladder--On tolterodine
Chronic pain/fibromyalgia/depression--Continue duloxetine, mirtazapine--lidocaine patches
code status --Full code
DVT prophylaxis� Eliquis
Anticipated Discharge: > 48 hours
Subjective/Interval History
-
Date of Service: February 06, 2024
pt without c/o
Objective Data
-
Labs:
Laboratory Results
02/06/24
05:01
WBC 7.3
Hgb 9.5 L
Hct 29.0 L
Plt Count 310
Sodium 137
Potassium 3.9
Chloride 99
Carbon Dioxide 29
BUN 65 H
Creatinine 1.6 H
Glucose 197 H
Calcium 9.3
Vital Signs:
max temp for 24 hours
02/05/24
15:20
Temp 98.6 F
Vital Signs
Temp Pulse Resp BP Pulse Ox
98.1 F 57 18 106/66 98
02/06/24 05:17 02/06/24 09:07 02/06/24 05:17 02/06/24 09:06 02/06/24 07:31
I&O
02/05/24 02/06/24 02/07/24
06:59 06:59 06:59
Intake Total 1080 / 1080 97 / 97
Output Total 1450 / 1450 1350 / 1350
Balance -1450 / -1450 -270 / -270 / 97
Review of Systems
-
All other systems: Reviewed and negative
Physical Exam
-
General: Well Developed, Well Nourished and No Apparent Distress
HEENT: Normocephalic and Atraumatic
Respiratory: Clear to Auscultation; Negative Wheezes or Rhonchi
Cardiac: Regular Rhythm and S1/S2; Negative Murmur
GI: Soft, Nontender, Nondistended and Normal Bowel Sounds
Musculoskeletal: No Clubbing, No Cyanosis and No Edema
Neuro: Awake and Alert
[2024-02-06] MEDS: NOVOLOG FLEXPEN 5 UNITS SC ×3 (11:20→17:05)
[2024-02-06 11:21] LABS: Glucose - Point of Care 241 mg/dl (70-99)
[2024-02-06] MEDS: NOVOLOG FLEXPEN-LOW RESISTANCE 2 UNITS SC ×3 (11:21→17:06)
--- NOTE | 2024-02-06 11:45 | W.PN.CD ---
Today's Communication / Plan
-
Stop nifedipine
Gentle diuresis
NPO after midnight CLARA tomorrow
Impression / Plan
-
78-year-old female with history of paroxysmal AF, ischemic cardiomyopathy EF 25 to 30%, MR, who was recently hospitalized because of pulmonary edema and atrial fibrillation and admitted 01/02/2024 with chief complaint of edema. Complex
hospitalization with hypotension, shock, and abdominal pain. She was transferred for further evaluation of pulmonary edema and severe MR with possibility of MitraClip evaluation. Unfortunately, CLARA attempted on February 03 resulted in significant
hypoxia and unable to assess MR.
Acute on chronic HFrEF (EF 25-30%)/ICMO:
- GDMT: carvedilol 3.125 mg bid, SGLT2i/ARNi/MRA not given 2/2 Cr and hypotension
- BP low, stopped nifedipine, when BP improves will start ARB
-LVEF 01/04/2024: Normal and on 01/07/2024: 25-30% with extensive anterior, lateral, and apical wall motion changes (Echo IV contrast); no sig valve disease noted
- Severe MR? --> CLARA Wednesday for possible eval MitraClip
Paroxysmal Afib controlled
- in SR
- cont coreg and amio
- on apixaban 5 mg bid
Known complex CAD and in past was not a CABG candidate:
- Records from [facility]/Dr Mejia 04/06/2023 reviewed
- Last cath seems to have been an Impella supported Left Main PCI with a HEMAL (4x12 Promus) in 08/2019
- Cath 08/2019: 50-60 LM, 80 LAD, 80 Ramus, 100 RCA
- Cath admit 01/12/2024 => stable CAD => LM stent patent. RCA MANAGER WELDING
-Continue ASA 81 mg daily.
-Statin-intolerant.
Physical Exam
Vital Signs/Labs
Vital Signs
Temp Pulse Resp BP Pulse Ox
98.1 F 57 18 106/66 98
02/06/24 05:17 02/06/24 09:07 02/06/24 05:17 02/06/24 09:06 02/06/24 07:31
02/05/24 02/06/24 02/07/24
06:59 06:59 06:59
Actual Weight 129 lb 6.581 oz 126 lb 8.725 oz
02/06/24 05:01
02/06/24 05:01
Magnesium 1.7 mg/dl (1.6-2.3) 02/06/24 05:01
Physical Exam
Constitutional: No acute distress
EENT: Anicteric
Cardiovascular: Rhythm & rate is regular and Pedal edema is absent
Respiratory: Respiratory effort normal and Crackles Present
GI: Soft
Neuro/Psych: AO x 3
Data Reviewed
-
Date of Service: February 06, 2024
EKG: Tracing Personally Visualized and interpreted (sr)
Echo: Report Reviewed by me
Labs: Labs Reviewed by me
[2024-02-06 12:19] VITALS: BP 108/54
[2024-02-06 12:21] LABS: Glucose - Point of Care 247 mg/dl (70-99)
[2024-02-06 15:35] VITALS: BP 128/36
[2024-02-06 16:12] LABS: Glucose - Point of Care 217 mg/dl (70-99)
[2024-02-06] MEDS: DEPAKOTE (12 HR RELEASE) 500 MG PO (17:05)
--- NOTE | 2024-02-06 17:48 | PTCARENOTE ---
pt continues to be SR on the monitor, HR in the 60s, vss. pt offers no complaints at this time. pt educated on plan of care for tonight and tomorrow, pt verbalized understanding. call estrada within reach.
[2024-02-06 18:19] VITALS: BP 106/65
[2024-02-06] MEDS: COREG 3.125 MG PO (20:03)
[2024-02-06 22:12] LABS: Glucose - Point of Care 242 mg/dl (70-99)
[2024-02-06] MEDS: REMERON 15 MG PO (22:18)
[2024-02-06] MEDS: FOLVITE 1 MG PO (22:18)
[2024-02-06] MEDS: LIDOCAINE 4% PATCH 2 PATCH TOPICAL (22:19)
[2024-02-06 22:25] LABS: Glucose - Point of Care 248 mg/dl (70-99)
[2024-02-06 23:05] VITALS: BP 112/39
[2024-02-07] VITALS (14 sets, daily range): BP systolic 96–135; BP diastolic 38–99; PULSE 62; O2SAT 100; BMI 23.9
[2024-02-07 03:39] LABS: Hematocrit 30.8 % (37.0-47.0); Hemoglobin 9.6 g/dL (12.0-16.0); Mean Corp Hgb Conc. 31.2 g/dL (33.0-37.0); Mean Corpuscular Hgb 26.4 pg (27.0-31.0); Mean Corpuscular Volume 84.6 fL (81.0-99.0); Platelet Count 293 10^3/uL (130-400); Red Blood Cell Count 3.64 10^6/uL (4.20-5.40); Red Cell Dist. Width 17.7 % (11.5-14.5); White Blood Cell Count 6.8 10^3/uL (4.8-10.8)
[2024-02-07 04:03] LABS: Blood Urea Nitrogen 67 mg/dl (7-17); Calcium 9.2 mg/dl (8.4-10.2); Carbon Dioxide 31 mmol/L (22-30); Chloride 100 mmol/L (98-107); Estimated Creatinine Clearance 23 ml/min; Glucose 209 mg/dl (70-99); Magnesium 1.7 mg/dl (1.6-2.3); Potassium 3.9 mmol/L (3.5-5.1); Sodium 139 mmol/L (135-145); eGFR 33.22
[2024-02-07] MEDS: SYNTHROID 112 MCG PO (06:15)
[2024-02-07] MEDS: NOVOLOG FLEXPEN SC (07:34)
[2024-02-07] MEDS: NOVOLOG FLEXPEN-LOW RESISTANCE SC (07:35)
[2024-02-07 07:37] LABS: Glucose - Point of Care 202 mg/dl (70-99)
--- NOTE | 2024-02-07 08:03 | PTCARENOTE ---
Assumed care of pt from prev nsg shift AAOx3, drowsy but easily arousable. Pt w/no c/o cp OR sob; pt does c/o chronic L shoulder pain, declined anything at this time. Lidocaine patches in place to L shoulder as ordered. VS stable w/HR in the 60's &
BP 135/44 this AM. Pt NPO since midnight for procedure this AM. Report given to Tory from the microbiology lab assistant prior to pt being taken for CLARA this AM. Pt transported via stretcher to microbiology lab assistant. Plan of care ongoing.
--- NOTE | 2024-02-07 09:54 | W.PN.HOSP.TC ---
Addendum entered and electronically signed by Felicitas Horton MD 02/07/24 19:03:
I saw and evaluated the patient independently. I reviewed the resident�s note and agree with findings and plan as documented by Dr. Skaggs.
GENERAL: well developed, well nourished, female in no apparent distress
HEENT: NC/AT still with O2 requirements
HEART: regular rate and rhythm, +S1, +S2, 2/6 RACHEL
LUNGS : clear to auscultation bilaterally
ABDOM: soft, nontender, nondistended, + bowel sounds
EXT: no cyanosis, clubbing, or edema
NEUROLOGIC: grossly intact
Symptomatic mitral regurgitation/severe--accepted in transfer from outside hospital--apprec cardiology--s/p CLARA with desaturation--after diuresis, CLARA 02/06 was successful with mild MR--IV diuresis to PO
Hx of acute respiratory distress 01/13/24 for flash pulm edema from rapid aflutter--wean O2 as able--was on room air at last d/c to SNF
Hx DVT right arm exacerbated by midline last admission--Continue Eliquis at reduced dose per cards
NSTEMI (TYPE II [place]) last admission--h/o CAD/multivessel disease and was refused bypass surgery due to several risk factors--Follow up Echo 01/03 noted Severely reduced left ventricular systolic function, EF 25-30%. Mild pulmonary hypertension--Trop
peaked at 45.8--cardiac cath 01/11 noted chronic total occlusion of the proximal RCA and small lesions in proximal LAD/second diagonal- too small for intervention
Paroxysmal A-fib--now in sinus by EKG and exam--cont coreg/amio --was not on anticoagulation as outpt given frequent falls, now on Eliquis at reduced dose
AR on CKD stage 3- 1.5 likely new baseline (labs reviewed from OSH show creat 1.7)--Lasix
Hx Shock last admission related to ischemic colitis and ESBL Klebsiella UTI finished all abx including vanco BID through 01/19 for h/o C diff colitis
chronic systolic heart failure--Follow up Echo 01/03 noted Severely reduced left ventricular systolic function, EF 25-30%. Mild pulmonary hypertension--s/p cardiac cath 01/11--BL LE US neg for DVT
Anemia of chronic disease-- Protonix --HGB stable--was found not to be iron deficient
Hypothyroidism--Continue levothyroxine
Hyperlipidemia--off statin, intolerant
Type 2 diabetes-- Lantus 5 units HS/ISS coverage
Trigeminal neuralgia--Continue Depakote
Overactive bladder--On tolterodine
Chronic pain/fibromyalgia/depression--Continue duloxetine, mirtazapine--lidocaine patches
code status --Full code
DVT prophylaxis� Eliquis
anticipate d/c tomorrow?
Original Note:
Today's Communication/Plan
-
CLARA was performed for the patient. Patient to be monitored for fluids.
Assessment / Plan
Assessment / Plan
pt is a 78 year old female
Symptomatic mitral regurgitation--accepted in transfer from outside hospital--apprec cardiology--First attempt of CLARA [02/03] was unsuccessful with desaturation-
Second attempt of CLARA was performed today [02/06]:
- Mild mitral regurgitation. No mitral stenosis.
- Compared to TTE 01/07/24: LVEF has improved from 25-30% to 40-45%.
Patient does not need MitraClip at this time.
Hx of acute respiratory distress 01/13/24 for flash pulm edema from rapid aflutter--wean O2 as able--was on room air at last d/c to SNF
Hx DVT right arm exacerbated by midline last admission--Continue Eliquis
NSTEMI (TYPE II WI) last admission--h/o CAD/multivessel disease and was refused bypass surgery due to several risk factors--Follow up Echo 01/03 noted Severely reduced left ventricular systolic function, EF 25-30%. Mild pulmonary hypertension--Trop
peaked at 45.8--cardiac cath 01/11 noted chronic total occlusion of the proximal RCA and small lesions in proximal LAD/second diagonal- too small for intervention
Paroxysmal A-fib--now in sinus by EKG and exam--cont coreg/amio --was not on anticoagulation as outpt given frequent falls, now on Eliquis 2.5 mg/ BD
AR on CKD stage 3- creat 1.6 likely new baseline (labs reviewed from OSH show creat 1.7)--Lasix PO 40mg/BD started
Hx Shock last admission related to ischemic colitis and ESBL Klebsiella UTI finished all abx including vanco BID through 01/19 for h/o C diff colitis
chronic systolic heart failure--Follow up Echo 01/03 noted Severely reduced left ventricular systolic function, EF 25-30%. Mild pulmonary hypertension--s/p cardiac cath 01/11--BL LE US neg for DVT
Anemia of chronic disease-- Protonix --HGB stable--was found not to be iron deficient
Hypothyroidism--Continue levothyroxine
Hyperlipidemia--off statin, intolerant
Type 2 diabetes-- Lantus 5 units HS/ISS coverage
Trigeminal neuralgia--Continue Depakote
Overactive bladder--Not on tolterodine
Chronic pain/fibromyalgia/depression--Continue duloxetine, mirtazapine--lidocaine patches
code status --Full code
DVT prophylaxis� Eliquis
Anticipated Discharge: 24 - 48 hours
Subjective/Interval History
-
Date of Service: February 07, 2024
patient has no c/o. Alert and cooperative.
Objective Data
-
Labs:
Laboratory Results
02/07/24
03:07
WBC 6.8
Hgb 9.6 L
Hct 30.8 L
Plt Count 293
Sodium 139
Potassium 3.9
Chloride 100
Carbon Dioxide 31 H
BUN 67 H
Creatinine 1.6 H
Glucose 209 H
Calcium 9.2
Vital Signs:
Vital Signs
Temp Pulse Resp BP Pulse Ox
98.4 F 69 20 135/44 97
02/07/24 07:32 02/07/24 07:35 02/07/24 07:32 02/07/24 07:35 02/07/24 07:50
I&O
02/06/24 02/07/24 02/08/24
06:59 06:59 06:59
Intake Total 1080 / 1079 337 / 337
Output Total 1350 / 1350 1950 / 1950
Balance -270 / -270 -1613 / -1613
Review of Systems
-
History Source: Patient
All other systems: Reviewed and negative
Constitutional: Reports No Symptoms
EENT: Reports No Symptoms Reported
Respiratory: Reports No Symptoms
Cardiac: Reports No Symptoms
Abdomen/GI: Reports No Symptoms
Breast: Reports No Symptoms
Genitourinary: Reports No Symptoms
Musculoskeletal: Reports No Symptoms
Skin: Reports No Symptoms
Neuro: Reports No Symptoms
Endocrine: Reports No Symptoms
Hematologic / Lymphatic: Reports No Symptoms
Allergy / Immunology: Reports No Symptoms
Physical Exam
-
General: Well Developed, Well Nourished and No Apparent Distress
HEENT: Normocephalic and Atraumatic
Respiratory: Clear to Auscultation
Cardiac: Regular Rhythm and Murmur
GI: Soft, Nontender, Nondistended and Normal Bowel Sounds
Rectal: Brown
Genito-urinary: No Costovertebral Tender and Clear Urine
Musculoskeletal: No Clubbing, No Cyanosis and No Edema
Skin: Warm and Normal Turgor
Neuro: Awake, Alert, Oriented, No Motor Deficits and Nonfocal/Grossly Intact
Hematologic / Lymphatic: No Lymphadenopathy
Psych: Calm
[2024-02-07] MEDS: VITAMIN D3 (cholecalciferol) 50 MCG PO (10:59)
[2024-02-07] MEDS: ELIQUIS 5 MG PO (10:59)
[2024-02-07] MEDS: COREG 3.125 MG PO ×2 (10:59→20:31)
[2024-02-07] MEDS: PACERONE 200 MG PO (10:59)
[2024-02-07] MEDS: PROTONIX 40 MG PO (11:00)
[2024-02-07] MEDS: CYMBALTA DELAYED RELEASE 60 MG PO (11:00)
[2024-02-07] MEDS: SENOKOT-S 1 TABLET PO (11:00)
[2024-02-07] MEDS: B COMPLEX w/VITAMIN C 1 CAPLET PO (11:00)
[2024-02-07] MEDS: LIPITOR 40 MG PO (11:02)
[2024-02-07] MEDS: DESENEX/MITRAZOL/ZEASORB 1 APPLIC TOPICAL ×2 (11:02→20:31)
[2024-02-07] MEDS: ASPIR LOW (ENTERIC COATED) 81 MG PO (11:02)
[2024-02-07] MEDS: FLUSH (NSS) 2 FLUSH IV (11:03)
[2024-02-07] MEDS: LASIX 40 MG IV (11:03)
[2024-02-07 11:06] LABS: Glucose - Point of Care 201 mg/dl (70-99)
--- NOTE | 2024-02-07 11:20 | PTCARENOTE ---
Rec'd report from Carol in the laborer tree tapping; Pt back from CLARA AAOx3 w/no c/o CP or SOB. Pt's VS stable w/ HR in the 50's-60's & BP 111/99. Pt's AM meds administered as ordered. Pt w/spouse at bedside waiting to speak w/canal boat operator. Pt w/call estrada
within reach & plan of care ongoing.
--- NOTE | 2024-02-07 12:08 | W.PN.CD ---
Today's Communication / Plan
-
Severe MR was noted in past: CLARA today showed LVEF improved to 40-45% with mild MR
-change lasix to PO, and monitor weight, Cr
Reduce eliquis to 2.5mg bid (weight, Cr)
Impression / Plan
-
78-year-old female with history of paroxysmal AF, ischemic cardiomyopathy EF 25 to 30%, MR, who was recently hospitalized because of pulmonary edema and atrial fibrillation and admitted 01/02/2024 with chief complaint of edema. Complex
hospitalization with hypotension, shock, and abdominal pain. She was transferred for further evaluation of pulmonary edema and severe MR with possibility of MitraClip evaluation. Unfortunately, CLARA attempted on February 03 resulted in significant
hypoxia and unable to assess MR.
Acute on chronic HFrEF (EF 25-30%)/ICMO:
- GDMT: carvedilol 3.125 mg bid, SGLT2i/ARNi/MRA not given 2/2 renal function and hypotension
-LVEF 01/04/2024: Normal and on 01/07/2024: 25-30% with extensive anterior, lateral, and apical wall motion changes (Echo IV contrast); no sig valve disease noted
- Severe MR was noted in past: CLARA today showed LVEF improved to 40-45% with mild MR
-change lasix to PO, and monitor weight, Cr
Paroxysmal Afib controlled
- in SR
- cont coreg and amio
- reduce eliquis to 2.5mg bid (weight, Cr)
Known complex CAD and in past was not a CABG candidate:
- Records from [facility]/Dr Mejia 04/06/2023 reviewed
- Last cath seems to have been an Impella supported Left Main PCI with a HEMAL (4x12 Promus) in 08/2019
- Cath 08/2019: 50-60 LM, 80 LAD, 80 Ramus, 100 RCA
- Cath admit 01/12/2024 => stable CAD => LM stent patent. RCA CABLE LACER
-Continue ASA 81 mg daily.
-Statin-intolerant.
Physical Exam
Vital Signs/Labs
Vital Signs
Temp Pulse Resp BP Pulse Ox
98.4 F 56 20 108/40 98
02/07/24 07:32 02/07/24 11:15 02/07/24 07:32 02/07/24 11:15 02/07/24 11:00
02/06/24 02/07/24 02/08/24
06:59 06:59 06:59
Actual Weight 57.4 kg 57.4 kg
02/07/24 03:07
02/07/24 03:07
Magnesium 1.7 mg/dl (1.6-2.3) 02/07/24 03:07
Physical Exam
Constitutional: No acute distress and Comfortable
EENT: Moist mucous membranes
Cardiovascular: Rhythm & rate is regular, Pedal edema is absent, JVD pressure is normal and Systolic murmur absent
Respiratory: Respiratory effort normal and Lungs clear to auscul.
GI: Soft and Distention absent
Neuro/Psych: AO x 3
Data Reviewed
-
Date of Service: February 07, 2024
Labs: Labs Reviewed by me
[2024-02-07] MEDS: NOVOLOG FLEXPEN 5 UNITS SC ×2 (12:46→17:31)
[2024-02-07] MEDS: NOVOLOG FLEXPEN-LOW RESISTANCE 2 UNITS SC ×2 (12:47→17:32)
--- NOTE | 2024-02-07 13:58 | CM ---
Reviewed chart. Met with Mrs. Teixeira to review discharge plans. We reviewed SNF/Rehab. She states she would prefer to go home with [facility]. Physical and Occupational Therapy evaluations pending. Prior to admission she was in
[facility] for SNF/Rehab. If she needs SNF and she is agreeable she will need pre-cert with her insurance. Medical work-up in progress. The discharge plan is to go to SNF/Rehab. verses home with her spouse and [facility]
when medically stable.
[2024-02-07 17:29] LABS: Glucose - Point of Care 227 mg/dl (70-99)
[2024-02-07] MEDS: LASIX 40 MG PO (17:30)
[2024-02-07] MEDS: DEPAKOTE (12 HR RELEASE) 500 MG PO (17:30)
[2024-02-07] MEDS: ELIQUIS 2.5 MG PO (20:31)
[2024-02-07] MEDS: FOLVITE 1 MG PO (20:31)
[2024-02-07] MEDS: LIDOCAINE 4% PATCH 2 PATCH TOPICAL (20:32)
[2024-02-07] MEDS: MIRALAX 17 GRAMS PO (20:37)
[2024-02-07] MEDS: REMERON 15 MG PO (22:23)
[2024-02-07 22:28] LABS: Glucose - Point of Care 123 mg/dl (70-99)
[2024-02-08 03:51] VITALS: BP 124/42
[2024-02-08 03:54] VITALS: BMI 23.8
[2024-02-08 04:40] LABS: Blood Urea Nitrogen 74 mg/dl (7-17); Calcium 9.5 mg/dl (8.4-10.2); Carbon Dioxide 28 mmol/L (22-30); Chloride 101 mmol/L (98-107); Estimated Creatinine Clearance 26 ml/min; Glucose 161 mg/dl (70-99); Potassium 3.9 mmol/L (3.5-5.1); Sodium 139 mmol/L (135-145); eGFR 38.99
[2024-02-08] MEDS: SYNTHROID 112 MCG PO (05:31)
[2024-02-08 07:41] VITALS: BP 117/57
[2024-02-08 07:44] LABS: Glucose - Point of Care 182 mg/dl (70-99)
--- NOTE | 2024-02-08 08:10 | PTCARENOTE ---
Assumed care of pt from prev nsg shift AAOx3, pt drowsy but easily arousable this AM. Pt w/no c/o CP or SOB. Pt w/chronic L shoulder pain, pt declined pain meds for shoulder; pt w/ 2 Lidoderm patches to L shoulder as ordered. Pt's w/VS stable w/HR
in the 60's, BP this AM 117/57. Plan of care discussed; pt anticipating D/C to . Pt stated that she has assistance at home from spouse & her daughter, who is a phys carpet inspector finished & is off for the summer. Pt w/no addtl needs at this time, call estrada
within reach. Plan of care ongoing.
[2024-02-08] MEDS: CYMBALTA DELAYED RELEASE 60 MG PO (08:34)
[2024-02-08] MEDS: PROTONIX 40 MG PO (08:34)
[2024-02-08] MEDS: PACERONE 200 MG PO (08:34)
[2024-02-08] MEDS: SENOKOT-S 1 TABLET PO (08:34)
[2024-02-08] MEDS: B COMPLEX w/VITAMIN C 1 CAPLET PO (08:34)
[2024-02-08] MEDS: LASIX 40 MG PO (08:35)
[2024-02-08] MEDS: ASPIR LOW (ENTERIC COATED) 81 MG PO (08:35)
[2024-02-08] MEDS: LIPITOR 40 MG PO (08:35)
[2024-02-08] MEDS: COREG 3.125 MG PO (08:35)
[2024-02-08] MEDS: VITAMIN D3 (cholecalciferol) 50 MCG PO (08:35)
[2024-02-08] MEDS: ELIQUIS 2.5 MG PO ×2 (08:35→09:25)
[2024-02-08] MEDS: DESENEX/MITRAZOL/ZEASORB 1 APPLIC TOPICAL (08:36)
[2024-02-08] MEDS: FLUSH (NSS) 2 FLUSH IV (08:36)
--- NOTE | 2024-02-08 08:59 | PN.CDI ---
CDI
- -
CDI:
Physician Documentation Request
Admit Date: 02/04/24 09:49
Dear Doctor Giles,
Please review the following and provide your response in the progress notes.
Clinical Indicators:
- 02/06 Cardiology 'Acute on chronic HFrEF'
- 02/06 PN 'chronic systolic heart failure'
- 02/03-02/06 IV Lasix
- 02/03-02/07 7lb weight loss
In an attempt to clarify potentially conflicting documentation, please clarify the acuity of the HFrEF:
Acute on chronic HFrEF
Chronic HFrEF
Other
Use of terms such as suspected, likely, concern for, or probable (associated with a specific diagnosis that is being evaluated, monitored, or treated as if it exists) are acceptable and can be coded in the inpatient setting, when documented at the
time of discharge.
Thank you,
Tolu Quach RN
CDI Specialist
Please use your independent medical judgment in providing your response.
--- NOTE | 2024-02-08 09:00 | W.PN.CD ---
Today's Communication / Plan
-
appears euvolemic at 57 kg
cont lasix 40mg daily, coreg 3.125mg bid, amiodarone 200mg daily, atorvastatin 40mg daily, ASA 81mg daily, eliquis 5mg bid
will likely stop amiodarone as outpatient after 2-3 months
BMP in one week
we will call patient for follow up
please call us back with additional questions
Impression / Plan
-
78-year-old female with history of paroxysmal AF, ischemic cardiomyopathy EF 25 to 30%, MR, who was recently hospitalized because of pulmonary edema and atrial fibrillation and admitted 01/02/2024 with chief complaint of edema. Complex
hospitalization with hypotension, shock, and abdominal pain. She was transferred for further evaluation of pulmonary edema and severe MR with possibility of MitraClip evaluation. Unfortunately, CLARA attempted on February 03 resulted in significant
hypoxia and unable to assess MR.
Acute on chronic HFrEF (EF 25-30%)/ICMO:
- GDMT: carvedilol 3.125 mg bid, SGLT2i/ARNi/MRA not given 2/2 renal function and hypotension
-LVEF 01/04/2024: Normal and on 01/07/2024: 25-30% with extensive anterior, lateral, and apical wall motion changes (Echo IV contrast); no sig valve disease noted
- Severe MR was noted in past: CLARA 02/06 showed LVEF improved to 40-45% with mild MR
- appears euvolemic at 57 kg: change lasix to 40mg PO daily
Paroxysmal Afib controlled
- in SR
- cont coreg and amio
- eliquis 5mg bid
Known complex CAD and in past was not a CABG candidate:
- Records from [facility]/Dr Mejia 04/06/2023 reviewed
- Last cath seems to have been an Impella supported Left Main PCI with a HEMAL (4x12 Promus) in 08/2019
- Cath 08/2019: 50-60 LM, 80 LAD, 80 Ramus, 100 RCA
- Cath admit 01/12/2024 => stable CAD => LM stent patent. RCA BLUNGER MACHINE OPERATOR
-Continue ASA 81 mg daily.
- cont atorvastatin 40mg daily.
Physical Exam
Vital Signs/Labs
Vital Signs
Temp Pulse Resp BP Pulse Ox
98.8 F 61 18 117/57 100
02/08/24 07:38 02/08/24 08:35 02/08/24 07:38 02/08/24 08:35 02/08/24 07:41
02/07/24 02/08/24 02/09/24
06:59 06:59 06:59
Actual Weight 57.4 kg 57 kg
02/07/24 03:07
02/08/24 03:50
Magnesium 1.7 mg/dl (1.6-2.3) 02/07/24 03:07
Physical Exam
Constitutional: No acute distress and Comfortable
EENT: Moist mucous membranes
Cardiovascular: Rhythm & rate is regular, Pedal edema is absent, JVD pressure is normal and Systolic murmur absent
Respiratory: Respiratory effort normal and Lungs clear to auscul.
GI: Soft and Distention absent
Neuro/Psych: AO x 3
Data Reviewed
-
Date of Service: February 08, 2024
EKG: Other (Tele: SR/SB 50s-60s)
Labs: Labs Reviewed by me
[2024-02-08] MEDS: NOVOLOG FLEXPEN-LOW RESISTANCE 1 UNITS SC (09:23)
[2024-02-08] MEDS: NOVOLOG FLEXPEN 5 UNITS SC ×3 (09:25→16:50)
--- NOTE | 2024-02-08 09:26 | CM ---
Reviewed chart. Met with Mrs. Teixeira to review discharge plans. She states she would prefer to go home instead of returning to SNF/Rehab. She has selected [facility]. Telephone call to [facility] Int[facility] to make the refferal.
Sent referral. Mrs. Teixeira states [facility] is her Primary Care. Medial work-up in progress. The discharge plan is to return home with her spouse and [facility] when medically stable.
--- NOTE | 2024-02-08 09:45 | W.PN.HOSP.TC ---
Addendum entered and electronically signed by Felicitas Horton MD 02/08/24 13:12:
I saw and evaluated the patient independently. I reviewed the resident�s note and agree with findings and plan as documented by Dr. Skaggs.
GENERAL: well developed, well nourished, female in no apparent distress
HEENT: NC/AT still with O2 requirements
HEART: regular rate and rhythm, +S1, +S2, 2/6 RACHEL
LUNGS : clear to auscultation bilaterally
ABDOM: soft, nontender, nondistended, + bowel sounds
EXT: no cyanosis, clubbing, or edema
NEUROLOGIC: grossly intact
Symptomatic mitral regurgitation/severe--accepted in transfer from outside hospital--apprec cardiology--s/p CLARA with desaturation 02/03--after diuresis, CLARA 02/06 was successful with mild MR--IV diuresis to PO--cleared for d/c by cards
Hx of acute respiratory distress 01/13/24 for flash pulm edema from rapid aflutter--wean O2 as able--was on room air at last d/c to SNF--assess for home O2
Hx DVT right arm exacerbated by midline last admission--Continue Eliquis at reduced dose per cards
NSTEMI (TYPE II [place]) last admission--h/o CAD/multivessel disease and was refused bypass surgery due to several risk factors--Follow up Echo 01/03 noted Severely reduced left ventricular systolic function, EF 25-30%. Mild pulmonary hypertension--Trop
peaked at 45.8--cardiac cath 01/11 noted chronic total occlusion of the proximal RCA and small lesions in proximal LAD/second diagonal- too small for intervention
Paroxysmal A-fib--now in sinus by EKG and exam--cont coreg/amio --was not on anticoagulation as outpt given frequent falls, now on Eliquis at reduced dose
AR on CKD stage 3- 1.5 likely new baseline (labs reviewed from OSH show creat 1.7)--Lasix
Hx Shock last admission related to ischemic colitis and ESBL Klebsiella UTI finished all abx including vanco BID through 01/19 for h/o C diff colitis
chronic systolic heart failure--Follow up Echo 01/03 noted Severely reduced left ventricular systolic function, EF 25-30%. Mild pulmonary hypertension--s/p cardiac cath 01/11--BL LE US neg for DVT
Anemia of chronic disease-- Protonix --HGB stable--was found not to be iron deficient
Hypothyroidism--Continue levothyroxine
Hyperlipidemia--off statin, intolerant
Type 2 diabetes-- Lantus 5 units HS/ISS coverage
Trigeminal neuralgia--Continue Depakote
Overactive bladder--On tolterodine
Chronic pain/fibromyalgia/depression--Continue duloxetine, mirtazapine--lidocaine patches
code status --Full code
DVT prophylaxis� Eliquis
anticipate d/c
Original Note:
Today's Communication/Plan
-
Plan is to discharge if patient remains stable
Assessment / Plan
Assessment / Plan
pt is a 78 year old female
Symptomatic mitral regurgitation--accepted in transfer from outside hospital--apprec cardiology--First attempt of CLARA [02/03] was unsuccessful with desaturation-
Second attempt of CLARA was performed today [02/06]:
- Mild mitral regurgitation. No mitral stenosis.
- Compared to TTE 01/07/24: LVEF has improved from 25-30% to 40-45%.
Patient does not need MitraClip at this time.
Hx of acute respiratory distress 01/13/24 for flash pulm edema from rapid aflutter--wean O2 as able--was on room air at last d/c to SNF
Hx DVT right arm exacerbated by midline last admission--Continue Eliquis
NSTEMI (TYPE II CO) last admission--h/o CAD/multivessel disease and was refused bypass surgery due to several risk factors--Follow up Echo 01/03 noted Severely reduced left ventricular systolic function, EF 25-30%. Mild pulmonary hypertension--Trop
peaked at 45.8--cardiac cath 01/11 noted chronic total occlusion of the proximal RCA and small lesions in proximal LAD/second diagonal- too small for intervention
Paroxysmal A-fib--now in sinus by EKG and exam--cont coreg/amio --was not on anticoagulation as outpt given frequent falls, now on Eliquis 2.5 mg/ BD
AR on CKD stage 3- creat 1.6 likely new baseline (labs reviewed from OSH show creat 1.7)--Lasix PO 40mg/BD started
Hx Shock last admission related to ischemic colitis and ESBL Klebsiella UTI finished all abx including vanco BID through 01/19 for h/o C diff colitis
chronic systolic heart failure--Follow up Echo 01/03 noted Severely reduced left ventricular systolic function, EF 25-30%. Mild pulmonary hypertension--s/p cardiac cath 01/11--BL LE neg for DVT
Anemia of chronic disease-- Protonix --HGB stable--was found not to be iron deficient
Hypothyroidism--Continue levothyroxine
Hyperlipidemia--off statin, intolerant
Type 2 diabetes-- Lantus 5 units HS/ISS coverage
Trigeminal neuralgia--Continue Depakote
Overactive bladder--Not on tolterodine
Chronic pain/fibromyalgia/depression--Continue duloxetine, mirtazapine--lidocaine patches
code status --Full code
DVT prophylaxis� Eliquis
Anticipated Discharge: Within 24 hours
Subjective/Interval History
-
Date of Service: February 08, 2024
Patient is feeling well. has no complaints
Objective Data
-
Labs:
Laboratory Results
02/08/24
03:50
Sodium 139
Potassium 3.9
Chloride 101
Carbon Dioxide 28
BUN 74 H
Creatinine 1.4 H
Glucose 161 H
Calcium 9.5
Vital Signs:
Vital Signs
Temp Pulse Resp BP Pulse Ox
98.8 F 61 18 117/57 100
02/08/24 07:38 02/08/24 08:35 02/08/24 07:38 02/08/24 08:35 02/08/24 07:41
I&O
02/07/24 02/08/24 02/09/24
06:59 06:59 06:59
Intake Total 337 / 337 800 / 800
Output Total 1949 / 1949 2950 / 2950
Balance -1613 / -1613 -2150 / -2150
--- NOTE | 2024-02-08 10:47 | W.HF.CON ---
Heart Failure
- LV Function
Left ventricular function study result: LV Ejection fraction >40%
Ejection Fraction Percentage: 40-45
- ARNI
Patient already on ARNI: No
Heart Failure ARNI Contraindication: Hypotension, Worsening Renal Function
- ACEI/ARB
Patient already on ACEI/ARB: No
Heart Failure ACEI/ARB Contraindication: Hypotension, Worsening Renal Function
- Beta Nolan
Patient already on Evidence Based Beta Nolan: Yes
- Mineralocorticord Receptor Antagonist
Patient already on MRA: No
Heart Failure MRA Contraindication: Hypotension
- SGLT-2 Inhibitor
Patient already on SGLT-2 Inhibitor: No
Heart Failure SGLT-2 Inhibitor Contraindication: Patient Refusal
- Afib Anticoagulation
Patient already on Anticoagulation for Afib: Yes
- NYHA CHF Classification
NYHA CHF Classification Level: Class III - Symptoms w/ min exertion, interferes w/ nml daily activity
[2024-02-08 11:47] LABS: Glucose - Point of Care 225 mg/dl (70-99)
[2024-02-08] MEDS: NOVOLOG FLEXPEN-LOW RESISTANCE 2 UNITS SC ×2 (11:54→16:50)
[2024-02-08 12:31] VITALS: BP 119/48
[2024-02-08 15:17] VITALS: BP 102/46
[2024-02-08 16:31] LABS: Glucose - Point of Care 242 mg/dl (70-99)
--- NOTE | 2024-02-08 16:32 | W.DCSUMMARY ---
Addendum entered and electronically signed by Felicitas Horton MD 02/09/24 20:28:
ERROR: acute on chronic heart failure with preserved ejection fraction should read reduced ejection fraction (systolic dysfunction)
Addendum entered and electronically signed by Felicitas Horton MD 02/08/24 17:37:
Read, reviewed, and agree. See same day progress note for additional details. Time spent coordinating care, DC planning, review of DC plan of care with resident, transition of care, review of records in EMR, med rec, consults, notes, d/w
consultants, nursing, family, and CM = 45 minutes.
Original Note:
Discharge Summary
Discharge Data
Date of Admission: 02/04/24
Date of Discharge: 02/08/24
Total time spent discharging patient (in min): 45
-
Pending Results: No
Hospital Course
Patient is a 78-year-old female who was accepted in transfer from outside hospital for evaluation of severe symptomatic mitral regurgitation along with persistent hypoxemia with respiratory failure and acute on chronic heart failure exacerbations.
She was previously admitted to this hospital from January 02, 2024 through January 26, 2024 with a myriad of medical issues who was eventually discharged to residential facility for rehab. Plan is for CLARA to assess mitral regurgitation with possible
MitraClip.
Problem #1: Symptomatic mitral regurgitation and acute on chronic heart failure: The cardiac service was consulted to assess mitral regurgitation and possible need for MitraClip. Initial CLARA on 02/03 was unsuccessful due to desaturation. CLARA was
repeated on 02/06 which showed mild mitral regurgitation, no mitral stenosis, and LVEF 40 to 45% (prior LVEF 25 to 30% dated 01/07/24). Patient did not need MitraClip. Patient was placed on IV diuresis and was cleared for discharge by the cardiac
service. Patient was given instructions to call cardiology office in a week from discharge for follow-up.
Problem #2: History of respiratory distress: Patient was assessed for need for home O2. Patient had O2 saturation of 99% at rest and 95% with ambulation and does not require home O2.
Problem #3: History of right arm DVT: Patient continued to receive Eliquis during hospital course. Dose was reduced to 2.5 mg/BID prior to CLARA and went back to 5 mg/BID post CLARA.
Problem #4:paroxysmal A-fib: carvedilol and amiodarone were continued as prior to admission.
Problem #5: Acute kidney injury on CKD stage III: Patient received Lasix 40 mg twice daily during hospital course. Creatinine went down from 1.6-1.4.
Problem #6: Hypothyroidism: Condition was stable during hospitalization. patient received levothyroxine as prior to admission.
Problem #7: Type 2 diabetes mellitus: Condition was stable during hospitalization.Patient continued to receive Lantus 5 units every night.
Problem #8: Trigeminal neuralgia:Condition was stable during hospitalization. Patient continued to receive Depakote as prior to admission.
Problem #9: Fibromyalgia/depression/chronic pain: Condition was stable during hospitalization.Patient continued to receive duloxetine mirtazapine lidocaine patches.
Patient is stable for discharge to home with visiting nurse from [facility]. If you have any questions regarding this dictation or hospital stay please call the office at [phone].
Significant lab findings: MRSA screen was negative.
Discharge Plan
-
Patient Disposition: Home with Home Care
Discharge Diagnosis/Procedures: Mitral regurgitation, Paroxysmal atrial fibrillation, acute on chronic kidney disease stage III, acute on chronic heart failure with preserved ejection fraction, anemia of chronic disease, hypothyroidism,
hyperlipidemia, type 2 diabetes mellitus, trigeminal neuralgia, overactive bladder, fibromyalgia, depression, history of acute respiratory distress, history of right arm deep vein thrombosis, history of type II NSTEMI, history of shock related to
ischemic colitis, history of ESBL Klebsiella urinary tract infection
Condition: Fair
Diet: Low Fat, Low Cholesterol, Low Sodium and Diabetic, Carb Controlled
Activity: As tolerated and No strenuous activity
Driving Restrictions: As prior to admission
Bathing Restrictions: OK to Shower
Other Services: VN, PT and OT
Instructions: *PCP/Other Gray Mixing Operator Heart Failure Instructions
Referrals:
Gloria Allison DEMONSTRATOR SEWING TECHNIQUES [Other] - in less than 1 week
[facility] [Outside]
[facility] Gomez MD [Active] - in one week (Office to call patient for follow-up)
Prescriptions:
New
furosemide 40 mg Tablet
40 mg PO DAILY Qty: 30 0RF
insulin glargine [Lantus Solostar U-100 Insulin] 100 unit/mL (3 mL) Insulin Pen
5 unit SC HS Qty: 5 0RF
insulin aspart U-100 [Novolog FlexPen U-100 Insulin] 100 unit/mL (3 mL) Insulin Pen
5 unit SC AC Qty: 5 0RF
Continued
atorvastatin [Lipitor] 40 mg Tablet
40 mg PO DAILY
divalproex 500 mg Tablet,Delayed Release (Dr/Ec)
500 mg PO QPM
aspirin 81 mg Tablet,Delayed Release (Dr/Ec)
81 mg PO DAILY
vitamin B complex Tablet
1 tab PO DAILY
folic acid 1 mg Tablet
1 mg PO HS
mirtazapine 15 mg Tablet
15 mg PO HS
levothyroxine [Synthroid] 112 mcg Tablet
112 mcg PO DAILY
duloxetine [Cymbalta] 60 mg Capsule,Delayed Release(Dr/Ec)
60 mg PO DAILY
acetaminophen [Tylenol Extra Strength] 500 mg Tablet
1,000 mg PO Q6HPRN PRN (Reason: MILD PAIN)
carvedilol 3.125 mg Tablet
3.125 mg PO BID Qty: 0 0RF
Eliquis 5 mg Tablet
5 mg PO BID Qty: 0 0RF
amiodarone [Pacerone] 200 mg Tablet
200 mg PO DAILY Qty: 0 0RF
sennosides-docusate sodium [Stool Softener-Stimulant Laxat] 8.6-50 mg Tablet
1 tab PO BID PRN (Reason: constipation) Qty: 0 0RF
polyethylene glycol 3350 [HealthyLax] 17 gram Powder In Packet
17 g PO BID PRN (Reason: constipation) Qty: 0 0RF
pantoprazole 40 mg Tablet,Delayed Release (Dr/Ec)
40 mg PO DAILY Qty: 0 0RF
cholecalciferol (vitamin D3) 50 mcg (2,000 unit) Tablet
50 mcg PO DAILY Qty: 0 0RF
lidocaine 4 % adhesive patch,medicated
2 patch topical HS
Rx Instructions:
2 patches to L shoulder
Discontinued
nifedipine 30 mg Tablet Extended Release
30 mg PO DAILY Qty: 30 0RF
furosemide 20 mg Tablet
20 mg PO DAILY Qty: 0 0RF
insulin aspart U-100 100 unit/mL (3 mL) Insulin Pen
5 unit SC AC Qty: 0 0RF
Insulin Glargine Lantus [Lantus] 5 UNITS
Subcutaneous Insulin Syringe [Syringe-Insulin] 0 UNIT
As Directed mls/hr SC HS
Reason for use: Diabetes
Ordered By: Kamar Perez MD, Resident
Last Taken: 02/03/24 22:00
Discharge Orders:
Discharge Patient (As Directed); Ordered 02/08/24
Ordered By: Katiana Skaggs
Care Plan Goals
Care Plan Goals:
Problem: Readiness for enhanced knowledge related to diagnosis and treatment plan
Goal: Understand your diagnosis and treatment plan needs, including medications if applicable.
Instructions: Know your diagnosis, underlying causes and treatment plan options, including medications if applicable. Consult with your health care team to learn about your diagnosis and treatment plan, including medications if applicable.
Discharge Date and Time
Print Language: KOREAN
--- NOTE | 2024-02-08 18:13 | PTCARENOTE ---
Pt discharged to home w/personal belongings. Pt transported out via wheelchair w/2P assist into the car. Pt's drove her home.
--- NOTE | 2024-02-09 08:06 | PN.CDI ---
CDI
- -
CDI:
Physician Documentation Request
Admit Date: 02/04/24 09:49
Dear Doctor Giles,
Please review the following and provide your response in the progress notes.
Clinical Indicators:
- 02/07 DC Summary 'acute on chronic heart failure with preserved ejection fraction'
- 02/07 Cardiology 'Acute on chronic HFrEF'
- 02/06 CLARA EF 40-45%
In an attempt to clarify potentially conflicting documentation, please clarify the type of CHF you are evaluating, treating or monitoring:
Acute on chronic HFrEF
Acute on chronic HFmrEF
Other
Use of terms such as suspected, likely, concern for, or probable (associated with a specific diagnosis that is being evaluated, monitored, or treated as if it exists) are acceptable and can be coded in the inpatient setting, when documented at the
time of discharge.
Thank you,
Tlou Quach RN
CDI Specialist
Please use your independent medical judgment in providing your response.
--- NOTE | 2024-02-09 18:13 | W.DCSUMMARY ---
Discharge Summary
Discharge Data
Date of Admission: 02/04/24
Date of Discharge: 02/09/24
Discharge Plan
-
Patient Disposition: Home with Home Care
Discharge Diagnosis/Procedures: Mitral regurgitation, Paroxysmal atrial fibrillation, acute on chronic kidney disease stage III, acute on chronic heart failure with preserved ejection fraction, anemia of chronic disease, hypothyroidism,
hyperlipidemia, type 2 diabetes mellitus, trigeminal neuralgia, overactive bladder, fibromyalgia, depression, history of acute respiratory distress, history of right arm deep vein thrombosis, history of type II NSTEMI, history of shock related to
ischemic colitis, history of ESBL Klebsiella urinary tract infection
Condition: Fair
Diet: Low Fat, Low Cholesterol, Low Sodium and Diabetic, Carb Controlled
Activity: As tolerated and No strenuous activity
Driving Restrictions: As prior to admission
Bathing Restrictions: OK to Shower
Other Services: VN, PT and OT
Instructions: *PCP/Other Butcher'S Assistant Heart Failure Instructions
Referrals:
Gloria Allison MILK PASTEURIZER [Other] - in less than 1 week
[facility] [Outside]
[facility] David Gomez MD [Active] - in one week (Office to call patient for follow-up)
Prescriptions:
New
furosemide 40 mg Tablet
40 mg PO DAILY Qty: 30 0RF
insulin glargine [Lantus Solostar U-100 Insulin] 100 unit/mL (3 mL) Insulin Pen
5 unit SC HS Qty: 5 0RF
insulin aspart U-100 [Novolog FlexPen U-100 Insulin] 100 unit/mL (3 mL) Insulin Pen
5 unit SC AC Qty: 5 0RF
Continued
atorvastatin [Lipitor] 40 mg Tablet
40 mg PO DAILY
divalproex 500 mg Tablet,Delayed Release (Dr/Ec)
500 mg PO QPM
aspirin 81 mg Tablet,Delayed Release (Dr/Ec)
81 mg PO DAILY
vitamin B complex Tablet
1 tab PO DAILY
folic acid 1 mg Tablet
1 mg PO HS
mirtazapine 15 mg Tablet
15 mg PO HS
levothyroxine [Synthroid] 112 mcg Tablet
112 mcg PO DAILY
duloxetine [Cymbalta] 60 mg Capsule,Delayed Release(Dr/Ec)
60 mg PO DAILY
acetaminophen [Tylenol Extra Strength] 500 mg Tablet
1,000 mg PO Q6HPRN PRN (Reason: MILD PAIN)
carvedilol 3.125 mg Tablet
3.125 mg PO BID Qty: 0 0RF
Eliquis 5 mg Tablet
5 mg PO BID Qty: 0 0RF
amiodarone [Pacerone] 200 mg Tablet
200 mg PO DAILY Qty: 0 0RF
sennosides-docusate sodium [Stool Softener-Stimulant Laxat] 8.6-50 mg Tablet
1 tab PO BID PRN (Reason: constipation) Qty: 0 0RF
polyethylene glycol 3350 [HealthyLax] 17 gram Powder In Packet
17 g PO BID PRN (Reason: constipation) Qty: 0 0RF
pantoprazole 40 mg Tablet,Delayed Release (Dr/Ec)
40 mg PO DAILY Qty: 0 0RF
cholecalciferol (vitamin D3) 50 mcg (2,000 unit) Tablet
50 mcg PO DAILY Qty: 0 0RF
lidocaine 4 % adhesive patch,medicated
2 patch topical HS
Rx Instructions:
2 patches to L shoulder
Discontinued
nifedipine 30 mg Tablet Extended Release
30 mg PO DAILY Qty: 30 0RF
furosemide 20 mg Tablet
20 mg PO DAILY Qty: 0 0RF
insulin aspart U-100 100 unit/mL (3 mL) Insulin Pen
5 unit SC AC Qty: 0 0RF
Insulin Glargine Lantus [Lantus] 5 UNITS
Subcutaneous Insulin Syringe [Syringe-Insulin] 0 UNIT
As Directed mls/hr SC HS
Reason for use: Diabetes
Ordered By: Kamar Perez MD, Resident
Last Taken: 02/03/24 22:00
Discharge Orders:
Discharge Patient (As Directed); Ordered 02/08/24
Ordered By: Katiana Skaggs
Care Plan Goals
Care Plan Goals:
Problem: Readiness for enhanced knowledge related to diagnosis and treatment plan
Goal: Understand your diagnosis and treatment plan needs, including medications if applicable.
Instructions: Know your diagnosis, underlying causes and treatment plan options, including medications if applicable. Consult with your health care team to learn about your diagnosis and treatment plan, including medications if applicable.
Discharge Date and Time
Discharge Date/Time: 02/08/24 18:18
Print Language: GERMAN
== END 2024-02-08 18:18 | disposition home health service (06) | DRG 280 ==
LOC: IVU 09:49
PROVIDERS: Internal Medicine; ADMITTING PHYSICIAN Internal Medicine; CONSULT PHYSICIAN Internal Medicine Cardiovascular Disease
PROC: B24BZZ4 Ultrasonography of Heart with Aorta, Transesophageal (ICD-10-PCS; 2024-02-07)
DX: I34.0 Nonrheumatic mitral (valve) insufficiency (principal); I50.23 Acute on chronic systolic (congestive) heart failure; I21.4 Non-ST elevation (NSTEMI) myocardial infarction; N17.9 Acute kidney failure, unspecified; I50.22 Chronic systolic (congestive) heart failure; I13.0 Hypertensive heart and chronic kidney disease with heart failure and stage 1 through stage 4 chronic kidney disease, or unspecified chronic kidney disease; I48.0 Paroxysmal atrial fibrillation; N18.30 Chronic kidney disease, stage 3 unspecified; D63.8 Anemia in other chronic diseases classified elsewhere; E03.9 Hypothyroidism, unspecified; E78.5 Hyperlipidemia, unspecified; E11.8 Type 2 diabetes mellitus with unspecified complications; F32.A Depression, unspecified; Z79.82 Long term (current) use of aspirin
CPT/HCPCS: 80048; 80053; 82962; 83036; 83735; 85027; 87070; 93005; 93312; 93320; 93325; 97116; 97162; 97166; 97535

== ENCOUNTER 2024-03-20 23:47 | Inpatient (IN) | payer MEDICARE, OTHER, SELFPAY ==
[2024-03-20 19:48] VITALS: BMI 28.0
[2024-03-20 20:00] VITALS: BP 158/49; BP 161/54
[2024-03-20 20:16] LABS: Glucose - Point of Care 512 mg/dl (70-99)
[2024-03-20 20:19] LABS: Urine Albumin Trace (Neg - Trace); Urine Bilirubin Negative (Negative); Urine Character Very Cloudy (Clear); Urine Color Yellow; Urine Glucose 3+ (Negative); Urine Ketone Negative (Negative); Urine Leukocyte 2+ (Negative); Urine Nitrite Positive (Negative); Urine Occult Blood 1+ (Negative); Urine Urobilinogen Negative (Neg - 1+)
[2024-03-20 20:30] LABS: Urine Bacteria Many (Negative); Urine White Cell >100 /HPF (0-5)
[2024-03-20 20:40] LABS: % Basophils 1.2 % (0-2); % Eosinophils 8.8 % (0-6); % Immature Granulocytes 0.4 % (0-0.5); % Monocytes 11.2 % (1.7-9.3); % Neutrophils 58.4 % (42.2-75.2); Absolute Basophils 0.1 10^3/uL (0-0.2); Absolute Eosinophils 0.4 10^3/uL (0-0.7); Absolute Monocytes 0.6 10^3/uL (0.1-0.6); Absolute Neutrophils 2.9 10^3/uL (1.4-6.5); Hematocrit 29.5 % (37.0-47.0); Hemoglobin 9.3 g/dL (12.0-16.0); Mean Corp Hgb Conc. 31.5 g/dL (33.0-37.0); Mean Corpuscular Hgb 24.2 pg (27.0-31.0); Mean Corpuscular Volume 76.8 fL (81.0-99.0); Mean Platelet Volume 10.4 fL (7.4-10.4); Nucleated Red Blood Cells % 0 %; Platelet Count 290 10^3/uL (130-400); Red Blood Cell Count 3.84 10^6/uL (4.20-5.40); Red Cell Dist. Width 16.8 % (11.5-14.5)
[2024-03-20 20:59] LABS: ALT (SGPT) 32 U/L (0-35); AST (SGOT) 45 U/L (14-36); Albumin 3.7 g/dl (3.5-5.0); Alkaline Phosphatase 138 U/L (38-126); Blood Urea Nitrogen 45 mg/dl (7-17); Calcium 9.8 mg/dl (8.4-10.2); Carbon Dioxide 26 mmol/L (22-30); Chloride 94 mmol/L (98-107); Estimated Creatinine Clearance 34 ml/min; Glucose 539 mg/dl (70-99); Potassium 4.7 mmol/L (3.5-5.1); Sodium 131 mmol/L (135-145); Total Bilirubin 0.5 mg/dl (0.2-1.3); Total Protein 7.4 g/dl (6.3-8.2); eGFR 46.91
[2024-03-20 21:00] VITALS: BP 140/42
[2024-03-20] MEDS: NOVOLOG vial 8 UNITS SC (21:27)
[2024-03-20] MEDS: NSS 1000 IV (21:28)
[2024-03-20 22:00] VITALS: BP 158/52
--- NOTE | 2024-03-20 22:23 | ED.GENMED ---
History of Present Illness
General
Chief Complaint: Urinary Symptoms
Source: patient and family ([id number], son)
Exam Limitations: none
Time Seen by Provider: 03/20/24 20:45
Nursing documentation reviewed up to this point in time: agreed with
History of Present Illness
History of Present Illness:
The patient is an 78-year-old female arriving from home after family observed her to be slightly confused, less talkative, with generalized weakness for several days. Family is concerned she has a urinary tract infection. They report that she has
not been taking her medication for diabetes and has not been eating well. Patient denies all complaints. She denies nausea and vomiting. Family reports patient was recently admitted for urosepsis.
Past History
Past History
ED Past Medical History: Arrthythmia, HTN, Hypercholesterolemia and IDDM
ED Past Surgical History: Other
Social History
Tobacco: Non-smoker
Alcohol: None
Drug: Other
Personal:
Living: with family
Employment: Retired
Family History
Family History: Other
Review of Systems
Review of Systems
Allergies reviewed?: Yes
Other source history: family
All Other Systems: ROS reviewed and negative except as documented in HPI and ROS
Constitutional: Reports fatigue
EENT: Reports no symptoms
Respiratory: Reports no symptoms
Cardiac: Reports no symptoms
ABD/GI: Reports anorexia
: Reports no symptoms
Musculoskeletal: Reports no symptoms
Skin: Reports no symptoms
Neurological: Reports other
Endocrine: Reports no symptoms
Hematologic/Lymphatic: Reports no symptoms
Psychiatric: Reports no symptoms
Phy Exam
Physical Exam
Physical Exam:
Physical Exam
General: no apparent distress, not acutely ill
Neck: supple. no meningeal signs. normal psoterior pharynx
Heart: s1/s2 regular rate and rhythm, no murmur. equal radial pulses.
Lungs: no acute respiratory distress. clear bilaterally
Abdomen: normal bowel sounds. not tender. no CVAT
Neuro: alert and orientedx3. no focal neurological deficits
Skin: no rash
Psychiatric: well kept. interactive and cooperative
Extremities: no edema. no calf tenderness. negative homans. good distal pulses
Course
Orders/Labs/Results
Orders:
Orders
03/20/24 20:13
Urinalysis Reflex To Culture Urgent
Date Specimen was Collected: 03/20/24
Time Specimen was Collected: 20:01
Urine Microscopic Reflex Cult Urgent
Urine Culture Urgent
CHIDI Source: U
Specimen Description:
Date Specimen was Collected: 03/20/24
Time Specimen was Collected: 20:01
03/20/24 20:35
Complete Blood Count/With Diff Urgent
Comprehensive Metabolic Panel Urgent
03/20/24 21:20
0.9% Sodium Chloride 1000 ml [Nss] 1,000 ml IV BOLUS
03/20/24 21:21
Insulin Aspart [NOVOLOG vial] 8 units SC NOW STA
03/20/24 21:25
Insulin Aspart [NOVOLOG vial] 100 units .ROUTE .STK-MED ONE
03/20/24 22:23
Ertapenem [Invanz] 1,000 mg 0.9% Sodium Chloride [Nss] 50 ml IV NOW
Abnormal Lab Results
03/20/24 03/20/24 03/20/24
20:13 20:16 20:35
RBC 3.84 L 10^6/uL
(4.20-5.40)
Hgb 9.3 L g/dL
(12.0-16.0)
Hct 29.5 L %
(37.0-47.0)
MCV 76.8 L fL
(81.0-99.0)
MCH 24.2 L pg
(27.0-31.0)
MCHC 31.5 L g/dL
(33.0-37.0)
RDW 16.8 H %
(11.5-14.5)
Absolute Lymphs (auto) 1.0 L 10^3/uL
(1.2-3.4)
Lymphocytes % 20.0 L %
(20.5-51.1)
Monocytes % 11.2 H %
(1.7-9.3)
Eosinophils % 8.8 H %
(0-6)
Sodium 131 L mmol/L
(135-145)
Chloride 94 L mmol/L
(98-107)
BUN 45 H mg/dl
(7-17)
Creatinine 1.2 H mg/dL
(0.6-1.0)
Glucose 539 H* mg/dl
(70-99)
AST 45 H U/L
(14-36)
Alkaline Phosphatase 138 H U/L
(38-126)
Ur Occult Blood Reflex 1+ A
(Negative)
Urine Nitrite (Reflex) Positive A
(Negative)
Leukocyte Esterase Rfl 2+ A
(Negative)
Urine WBC (Reflex) >100 A /HPF
(0-5)
Urine Bacteria (Reflex) Many A
(Negative)
Urine Glucose 3+ A
(Negative)
POC Glucose 512 H* mg/dl
(70-99)
03/20/24 20:35
03/20/24 20:35
Vital Signs
Initial and Last Documented VS:
Initial Vital Signs
Temp BP Pulse Ox
99.3 F 158/49 95
03/20/24 20:00 03/20/24 20:00 03/20/24 20:00
Last Documented Vital Signs
Temp BP Pulse Ox
99.3 F 158/52 94
03/20/24 20:00 03/20/24 22:00 03/20/24 22:10
MDM/Problems Addressed
Differential Diagnosis Includes:
DKA, urinary tract infection, urosepsis, acute dehydration
MDM/Problems Addressed:
Patient with acute mild confusion and generalized weakness. Patient acutely hyperglycemic
Chronic conditions affecting care: DM
Acute Exacerbation and/or Progression of Chronic Illness:
Patient acutely hyperglycemic due to progression of insulin-dependent diabetes
Acute Exacerbation and/or Progression of Chronic Illness: DM
*Pulse Oximetry
Patient hypoxic: no
*EKG
Interpreted by ED Provider?: NA
*Blow Torch Operator Interpretation
Rate: normal
Interpretation: normal
Rhythm: sinus
*Critical Care Note
Total Time (30-74mins, 75-104mins- exclusive of procedures): Not Applicable
Data Reviewed
Review of Other/Old Records Reveals: Labs (Urine culture showed ESBL in December 2023)
Source: patient and family
Patient Management
Social determinants of health affecting care: Living situation and Strong social support
Discussion with other providers: Hospitalist
ED Attending Note
-
Portions of this chart may have been created with voice recognition software.� Occasional wrong word or��sound alike� substitutions may have occurred due to the inherent limitations of voice recognition software.
Discharge Plan
Departure
Patient Disposition: Admit
Date of Disposition: 03/20/24
Time of Disposition: 22:20
Admit to: Med/Surg
Presentation/result/management discussed w/ accepting MD/DO: Hospitalist
Patient with high blood pressure during this ER visit?: Yes
Condition: Fair
Covid-19: Negative COVID-19
Discharge Problem:
Acute UTI, Acute hyperglycemia
Prescriptions:
No Action
atorvastatin [Lipitor] 40 mg Tablet
40 mg PO DAILY
divalproex 500 mg Tablet,Delayed Release (Dr/Ec)
500 mg PO QPM
aspirin 81 mg Tablet,Delayed Release (Dr/Ec)
81 mg PO DAILY
vitamin B complex Tablet
1 tab PO DAILY
folic acid 1 mg Tablet
1 mg PO HS
mirtazapine 15 mg Tablet
15 mg PO HS
levothyroxine [Synthroid] 112 mcg Tablet
112 mcg PO DAILY
duloxetine [Cymbalta] 60 mg Capsule,Delayed Release(Dr/Ec)
60 mg PO DAILY
carvedilol 3.125 mg Tablet
3.125 mg PO BID Qty: 0 0RF
Eliquis 5 mg Tablet
5 mg PO BID Qty: 0 0RF
amiodarone [Pacerone] 200 mg Tablet
200 mg PO DAILY Qty: 0 0RF
pantoprazole 40 mg Tablet,Delayed Release (Dr/Ec)
40 mg PO DAILY Qty: 0 0RF
cholecalciferol (vitamin D3) 50 mcg (2,000 unit) Tablet
50 mcg PO DAILY Qty: 0 0RF
furosemide 40 mg Tablet
40 mg PO DAILY Qty: 30 0RF
insulin glargine [Lantus Solostar U-100 Insulin] 100 unit/mL (3 mL) Insulin Pen
5 unit SC HS Qty: 5 0RF
tolterodine 2 mg tablet
2 mg PO HS
Acidophilus Capsule
175 mg PO DAILY
metformin 500 mg tablet extended release 24 hr
500 mg PO BID
magnesium oxide 400 mg magnesium Tablet
400 mg PO DAILY
Referrals:
Argelia Narayanan NP [Family Provider] -
Interventions
Interventions:
*Risk Screen - Suicide Last Done: 03/20/24 19:48
*General Assessment Last Done: 03/20/24 19:48
*Neglect/Abuse Screening Last Done: 03/20/24 19:48
*ED COVID-19 Vaccine History Last Done: 03/20/24 19:48
ED-Female Genitourinary Assessment Last Done: 03/20/24 19:54
Discharge Date and Time
Print Language: TRISTANIAN
[2024-03-20] MEDS: INVANZ 60 MG IV (22:38)
[2024-03-20 23:05] LABS: Glucose - Point of Care 429 mg/dl (70-99)
[2024-03-20 23:14] VITALS: BP 153/50
--- NOTE | 2024-03-20 23:35 | HPS.HSE ---
Family Physician
-
Family Physician: Argelia Narayanan NP
Chief Complaint
-
Dysarthria / Confusion
History of Present Illness
Patient is a 78y F with PMH significant for A-Fib, CHF, HTN and OAB who presents to ED for evaluation of confusion and dysarthria noted by her family today. Patient states that her sugars have been running high at home for the past few days.
She notes that she has 'not been feeling well' and complains of nausea and anorexia but no emesis. No diarrhea. Family stated that she was not taking her DM medication; however, patent insists that she was. Today her family noted slurred speech
and felt she was confused and brought her to the ED for further evaluation.
Patient has chronic urinary urgency and occasional dysuria - which she states is not significantly changed from her usual OAB complaints.
She denies any abdominal pain or flank pain.
No chills. No chest pain /dyspnea.
Medical History
Past Medical History
Past Medical History: Reports Other
Additional Past Medical History:
Chronic systolic congestive heart failure, type II non-STEMI myocardial infarction
Type 2 diabetes mellitus
History of acute kidney injury on chronic kidney disease stage III, history of shock related to ischemic colitis and extended spectrum beta-lactamase resistant Klebsiella urinary tract infection
Acute catheter-associated deep venous thrombosis in the right arm (midline placement)
Paroxysmal atrial fibrillation
Anemia of chronic disease
Trigeminal neuralgia
Hypothyroidism
Hyperlipidemia
Overactive bladder
Chronic pain/fibromyalgia/depression
History of subdural hematoma
Coronary artery disease status post stents with left bundle branch block
Previous history of stroke
Obstructive sleep apnea
Essential hypertension
Past Surgical History: Reports Other
Additional Past Surgical History:
Left shoulder replacement complicated by septic shoulder
Social History
Tobacco: Non-smoker
Alcohol: None
Drug: None
Family History
Family History: Not pertinent
Allergies / Home Medications
Allergies reflects when Allergies were last updated in [facility].
Home Medications with original date entered in [facility]
Allergy/Medication List:
Allergies
Allergy/AdvReac Type Severity Reaction Status Date / Time
cephalexin Allergy Unknown Verified 03/20/24 19:54
ciprofloxacin Allergy Hives Verified 03/20/24 19:54
formaldehyde Allergy Shortness Verified 03/20/24 19:54
of Breath
Iodinated Contrast Media Allergy Hives Verified 03/20/24 19:54
metoprolol Allergy Itching Verified 03/20/24 19:54
Penicillins Allergy Unknown Verified 03/20/24 19:54
piperacillin [From Zosyn] Allergy Unknown Verified 03/20/24 19:54
pregabalin [From Lyrica] Allergy Hives Verified 03/20/24 19:54
shellfish derived Allergy Unknown Verified 03/20/24 19:54
Nyouphc-AOA-YwZ Reductase Allergy Unknown Verified 03/20/24 19:54
Inhibitor
Sulfa (Sulfonamide Allergy Unknown Verified 03/20/24 19:54
Antibiotics)
tazobactam [From Zosyn] Allergy Unknown Verified 03/20/24 19:54
vancomycin Allergy Rash Verified 03/20/24 19:54
Home Medications
aspirin 81 mg tablet,delayed release 81 mg PO DAILY Blood Clot Prevention/Tx 05/17/23
atorvastatin 40 mg tablet (Lipitor) 40 mg PO DAILY High Cholesterol 05/17/23
divalproex 500 mg tablet,delayed release 500 mg PO QPM Neurological Condition 05/17/23
duloxetine 60 mg capsule,delayed release (Cymbalta) 60 mg PO DAILY Neurological Condition 05/17/23
folic acid 1 mg tablet 1 mg PO HS Supplement 05/17/23
levothyroxine 112 mcg tablet (Synthroid) 112 mcg PO DAILY Thyroid 05/17/23
mirtazapine 15 mg tablet 15 mg PO HS Mental Health/Anxiety 05/17/23
vitamin B complex 1 tab PO DAILY Supplement 05/17/23
amiodarone 200 mg tablet (Pacerone) 200 mg PO DAILY Arrhythmia #0 tabs 01/26/24
apixaban 5 mg tablet (Eliquis) 5 mg PO BID Blood clot prevention/tx #0 tabs 01/26/24
carvedilol 3.125 mg tablet 3.125 mg PO BID Heart Failure #0 tabs 01/26/24
cholecalciferol (vitamin D3) 50 mcg (2,000 unit) tablet 50 mcg PO DAILY Supplement #0 tabs 01/26/24
pantoprazole 40 mg tablet,delayed release 40 mg PO DAILY Gastrointestinal issue #0 tabs 01/26/24
furosemide 40 mg tablet 40 mg PO DAILY Fluid retention/Swelling #30 tabs 02/08/24
insulin glargine 100 unit/mL (3 mL) subcutaneous pen (Lantus Solostar U-100 Insulin) 5 unit (0.05 mL) SC HS Diabetes #5 ea 02/08/24
Lactobacillus acidophilus (Acidophilus capsule) 175 mg PO DAILY 03/20/24
magnesium oxide 400 mg PO DAILY 03/20/24
metformin 500 mg tablet,extended release 24 hr 500 mg PO BID 03/20/24
tolterodine 2 mg tablet 2 mg PO HS 03/20/24
Review of Systems
-
History Source: Patient
A 12 point ROS was completed and negative except as noted: Yes
Constitutional: Reports Fatigue; Denies Fever or Chills
EENT: Denies Sore Throat
Respiratory: Denies Cough or Trouble Breathing
Cardiac: Denies Chest Pain or Palpitations
Abdomen/GI: Reports Nausea and Anorexia; Denies Abdominal Pain, Vomiting, Diarrhea or Constipated
: Reports Dysuria, Frequency and Urgency; Denies Flank Pain or Bleeding
Musculoskeletal: Denies Joint Pain or Edema
Neurological: Denies Dizzy or Headache
Psych: Denies Depression or Anxiety
Physical Exam
Vital Signs
Vital Signs
Temp BP Pulse Ox
99.2 F 153/50 97
03/20/24 23:16 03/20/24 23:14 03/20/24 23:16
Physical Exam
General: Other (78y F i no acute distress. Mild pallor.)
HEENT: Moist mucous membranes and PERRLA
Respiratory: Clear; No Wheezes, Rales or Rhonchi
Cardiac: S1/S2, Regular Rhythm and Murmur (II/ RACHEL)
GI: Soft, Non Distended and Normal Bowel Sounds
Genito-urinary: Other (Pos suprapubic tenderness. No CVAT.)
Musculoskeletal: No Clubbing, No Cyanosis and Other (Trace edema bilateral ankles.)
Neuro: AO x 3 and Other (L facial droop and mild dysarthria is appreciated. LUE difficult to assess secondary to prior surgeries (multiple) and acquired deformity / weakness. No appreciable LLE weakness.)
Laboratory Results
-
03/20/24 20:35
Laboratory Results
Total Bilirubin 0.5 mg/dl (0.2-1.3) 03/20/24 20:35
AST 45 U/L (14-36) H 03/20/24 20:35
ALT 32 U/L (0-35) 03/20/24 20:35
Alkaline Phosphatase 138 U/L (38-126) H 03/20/24 20:35
Impression/Plan
-
A/P: Patient is a 78y F with PMH significant for ASCVD, HTN, DM-II and CHF who presents to ED for evaluation of confusion and dysarthria noted by her family.
Dysarthria
- Admit for further evaluation and treatment.
- ? acute TME secondary to infection (UTI), metabolic process (severe hyperglycemia) or CVA / TIA.
- Check CT head now.
- Address DM / UTI as noted below.
- PT / OT / Speech evaluations.
- MRI in the AM for further evaluation (if CT unremarkable).
- Follow neurologic exam overnight for any new changes.
- Consider Neurology evaluation if any positive findings.
DM-II, Uncontrolled
- Hyperglycemia without acidosis or elevated anion gap.
- Unclear if patient has been taking insulin / meds at home the past few days (varying histories from patient / family).
- Begin Lantus starting this evening.
- Follow glucose and cover with SSI as needed. Follow for improved control.
- Caution with IVF replacement given CHF.
- A1C done in January was 7.2%.
UTI
Chronic OAB
- UA consistent with infection. Patient chronically has symptoms that could be attributed to UTI.
- Will continue with ertapenem started in the ED for now.
- Follow-up culture data.
- ID evaluation given multiple medication allergies / limited treatment options.
Chronic HFrEF
- Stable. Volume status appears improved from last admission.
- CLARA done at that time showed some improvement in LVEF from prior (40-45%) and only mild MR.
- Continue current diuretic regimen / med regimen.
- Follow I/Os, daily weights, etc.
Paroxysmal Atrial Fibrillation
- Stable. Continue current medications including amiodarone and Eliquis.
- Monitor on telemetry overnight.
CKD III
- Stable. Renal function is at / near known baseline. Follow.
Hypothyroidism
- Continue current T4 supplementation.
Trigeminal Neuralgia
- Stable. No complaints of pain / headache at present. Continue Depakote.
Anemia of Chronic Disease
- Stable. Hgb is at / near known baseline.
- Iron studies done prior were unremarkable.
- Follow for any changes.
DVT Prophylaxis: On Eliquis
Code Status: Full
[2024-03-21] MEDS: LANTUS 0.06 UNITS SC (00:04)
[2024-03-21 00:17] LABS: Glucose 329 mg/dl (70-99)
[2024-03-21 00:27] VITALS: BP 149/47
[2024-03-21 01:00] VITALS: BP 125/98
--- NOTE | 2024-03-21 01:57 | ED.ADDNOTE ---
ED Addendum
ED Addendum
ED Addendum Note:
Hospitalist ordered CT head of patient. CT shows trace amount of acute/subacute subdural hemorrhage. I went in to reassess the patient. She is still fully awake, alert and answering questions. She reports she does not remember falling. She
denies headache and neck pain. She has no midline vertebral spine tenderness. Her abdomen remains soft and nontender. Patient is not sure when she last took her Eliquis. Case reviewed with Dr. Jimy Murray who is agreeable to sending
patient to [facility]. Hospitalist made aware of change of disposition.
I spoke to the patient's over the phone to get verbal consent for the transfer. He understands patient condition and what the CT shows. Case discussed with [facility] team, Dr Clark, who agreed to accept the patient.
Critical care-76 minutes given to the patient including reviewing her recent hospitalization when she was admitted for urosepsis, as well as reviewing the patient's urine cultures, blood work, and discussing the CT report with radiology,
neurosurgery, [facility] as well as patient's .
[2024-03-21 02:27] LABS: APTT 37.3 Sec (23.4-35.0); INR 1.26; PT 15.6 Sec (11.4-14.6)
== END 2024-03-21 02:30 | disposition short-term general hospital (02) | DRG 64 ==
LOC: ED 23:47
PROVIDERS: Student in an Organized Health Care Education/Training Program; ADMITTING PHYSICIAN Hospitalist; EMERGENCY PHYSICIAN Emergency Medicine; FAMILY PHYSICIAN Nurse Practitioner Adult Health
DX: I62.01 Nontraumatic acute subdural hemorrhage (principal); G92.8 Other toxic encephalopathy; I13.0 Hypertensive heart and chronic kidney disease with heart failure and stage 1 through stage 4 chronic kidney disease, or unspecified chronic kidney disease; I50.22 Chronic systolic (congestive) heart failure; N39.0 Urinary tract infection, site not specified; I48.0 Paroxysmal atrial fibrillation; N32.81 Overactive bladder; E11.65 Type 2 diabetes mellitus with hyperglycemia; G50.0 Trigeminal neuralgia; R47.1 Dysarthria and anarthria; E78.00 Pure hypercholesterolemia, unspecified; R41.0 Disorientation, unspecified; E11.22 Type 2 diabetes mellitus with diabetic chronic kidney disease; N18.30 Chronic kidney disease, stage 3 unspecified; D63.8 Anemia in other chronic diseases classified elsewhere; E03.9 Hypothyroidism, unspecified; F32.A Depression, unspecified; G89.29 Other chronic pain; M79.7 Fibromyalgia; G47.33 Obstructive sleep apnea (adult) (pediatric); I25.10 Atherosclerotic heart disease of native coronary artery without angina pectoris; I44.7 Left bundle-branch block, unspecified; Z79.01 Long term (current) use of anticoagulants; Z79.4 Long term (current) use of insulin; Z79.82 Long term (current) use of aspirin; Z79.899 Other long term (current) drug therapy; Z86.718 Personal history of other venous thrombosis and embolism; Z86.73 Personal history of transient ischemic attack (TIA), and cerebral infarction without residual deficits; Z91.148 Patient's other noncompliance with medication regimen for other reason; Z95.5 Presence of coronary angioplasty implant and graft; Z96.612 Presence of left artificial shoulder joint
CPT/HCPCS: 70450; 80053; 81003; 81015; 82947; 82962; 85025; 85610; 85730; 87077; 87086; 87186; 96361; 96365; 96372; 99285; J1335

== ENCOUNTER 2024-05-02 13:24 | Emergency (ER) | payer MEDICARE, OTHER, SELFPAY ==
[2024-05-02 13:26] VITALS: BP 130/62
[2024-05-02 13:41] LABS: % Basophils 1.9 % (0-2); % Eosinophils 9.6 % (0-6); % Immature Granulocytes 0.5 % (0-0.5); % Lymphocytes 25.4 % (20.5-51.1); % Monocytes 10.8 % (1.7-9.3); % Neutrophils 51.8 % (42.2-75.2); Absolute Basophils 0.1 10^3/uL (0-0.2); Absolute Eosinophils 0.6 10^3/uL (0-0.7); Absolute Lymphocytes 1.6 10^3/uL (1.2-3.4); Absolute Monocytes 0.7 10^3/uL (0.1-0.6); Absolute Neutrophils 3.2 10^3/uL (1.4-6.5); Hematocrit 36.3 % (37.0-47.0); Hemoglobin 11.7 g/dL (12.0-16.0); Mean Corp Hgb Conc. 32.2 g/dL (33.0-37.0); Mean Corpuscular Hgb 25.5 pg (27.0-31.0); Mean Corpuscular Volume 79.1 fL (81.0-99.0); Mean Platelet Volume 10.1 fL (7.4-10.4); Nucleated Red Blood Cells % 0 %; Platelet Count 266 10^3/uL (130-400); Red Blood Cell Count 4.59 10^6/uL (4.20-5.40); Red Cell Dist. Width 20.9 % (11.5-14.5); White Blood Cell Count 6.2 10^3/uL (4.8-10.8)
[2024-05-02 13:53] LABS: ALT (SGPT) 22 U/L (0-35); AST (SGOT) 31 U/L (14-36); Albumin 3.9 g/dl (3.5-5.0); Alkaline Phosphatase 95 U/L (38-126); Blood Urea Nitrogen 76 mg/dl (7-17); Calcium 11.5 mg/dl (8.4-10.2); Carbon Dioxide 27 mmol/L (22-30); Chloride 101 mmol/L (98-107); Glucose 98 mg/dl (70-99); Potassium 4.2 mmol/L (3.5-5.1); Sodium 140 mmol/L (135-145); Total Bilirubin 0.4 mg/dl (0.2-1.3); Total Protein 7.4 g/dl (6.3-8.2); eGFR 33.22
--- NOTE | 2024-05-02 14:56 | ED.GENMED ---
History of Present Illness
General
Chief Complaint: Urinary Symptoms
Time Seen by Provider: 05/02/24 14:56
History of Present Illness
History of Present Illness:
HPI: I spoke to the patient and the at bedside and they are concerned about urinary tract infection. She has had symptoms for the past week. She reports increased urinary frequency and burning with urination. She is prone to urinary tract
infections. She has chronic abdominal pain but this is not necessarily worse today. Although she appears somewhat dehydrated on exam, she tells me that she has been drinking plenty water. She also indicates that her blood sugar has been elevated
at home.
EXAM:
GENERAL: Appears somewhat generally weak and debilitated
HEENT: Somewhat dry oral mucosa
CARDIOVASCULAR: No murmurs, normal heart rate, regular rhythm, No chest wall tenderness
PULMONARY: No respiratory distress, breath sounds are clear and equal
ABDOMEN: Soft with no peritoneal signs, no significant tenderness
NEUROLOGIC: Fair strength all extremities, no coordination deficits
PSYCHIATRIC: Appropriate mental status, normal insight and judgement
EXTREMITIES: Nontender, no edema, moves all extremities equally
SKIN: No rash, no lesions
TIME OF INITIAL ENCOUNTER: 3 PM
NUMBER AND COMPLEXITY OF PROBLEMS ADDRESSED AT THE ENCOUNTER
� Chronic conditions affecting care: A-fib, CHF, CAD, high blood press, history of stress incontinence, UTI, overactive bladder, IDDM, has had hysterectomy
� Acute Exacerbation and/or Progression of Chronic Illness: This is an acute but recurring problem
� Differential Diagnosis includes: UTI, pyelonephritis, urethritis, ureteral stone very unlikely based on the description of her symptoms, sepsis bacteremia unlikely based on vital signs and white count
AMOUNT AND/OR COMPLEXITY OF DATA TO BE REVIEWED AND ANALYZED
� I performed an independent evaluation of and my interpretation is:
EKG:
CT:
X-rays:
Laboratory Studies: White count 6.2, hemoglobin 11.7 which is improved compared to prior from last month but was 9.3, creatinine 1.6 which is near baseline, calcium 11.5
Other:
� Review of other/old records: I reviewed records, the patient was admitted to the hospital last month with confusion and dysarthria and high blood sugars. At that time she also found to have a trace amount of acute to subacute
SDH and was transferred to [place].
� Clinical information was obtained by an independent historian: I spoke to the at bedside
� Prescriptions/Medications Considered but not given:
� Further testing considered but not performed:
RISK OF COMPLICATIONS AND/OR MORBIDITY OR MORTALITY OF PATIENT MANAGEMENT
� Social determinants of health affecting care: Lives at home
� Discussion with other providers:
� Escalation of care including admission/observation vs risk of discharge considered: The patient's lab work is near baseline. Her white blood cell count is normal. Although she appears somewhat dry, she states she has been
drinking water without difficulty at home. She has not been having any vomiting or diarrhea. Urinalysis consistent with UTI. Multiple drug intolerances but she tells me that she did have Keflex in the past and tolerated well.
Past History
Past History
ED Past Medical History: Arrthythmia, HTN, Hypercholesterolemia and IDDM
ED Past Surgical History: Other
Social History
Tobacco: Non-smoker
Alcohol: None
Drug: Other
Personal:
Living: with family
Employment: Retired
Family History
Family History: Other
Phy Exam
Physical Exam
Physical Exam:
See HPI
Course
Orders/Labs/Results
Orders:
Orders
05/02/24 13:32
CMP [Comprehensive Metabolic Panel] Urgent
Complete Blood Count/With Diff Urgent
05/02/24 14:40
Urinalysis Reflex To Culture Urgent
Date Specimen was Collected: 05/02/24
Time Specimen was Collected: 14:38
Urine Microscopic Reflex Cult Urgent
Urine Culture Urgent
CHIDI Source: U
Specimen Description:
Date Specimen was Collected: 05/02/24
Time Specimen was Collected: 14:38
05/02/24 16:06
Cephalexin Monohydrate [Keflex] 500 mg PO NOW STA
Abnormal Lab Results
05/02/24 05/02/24
13:32 14:40
Hgb 11.7 L g/dL
(12.0-16.0)
Hct 36.3 L %
(37.0-47.0)
MCV 79.1 L fL
(81.0-99.0)
MCH 25.5 L pg
(27.0-31.0)
MCHC 32.2 L g/dL
(33.0-37.0)
RDW 20.9 H %
(11.5-14.5)
Absolute Monos (auto) 0.7 H 10^3/uL
(0.1-0.6)
Monocytes % 10.8 H %
(1.7-9.3)
Eosinophils % 9.6 H %
(0-6)
BUN 76 H mg/dl
(7-17)
Creatinine 1.6 H mg/dL
(0.6-1.0)
Calcium 11.5 H mg/dl
(8.4-10.2)
Leukocyte Esterase Rfl 2+ A
(Negative)
Urine RBC 3-6 A /HPF
(0-2)
Urine WBC (Reflex) >100 A /HPF
(0-5)
Urine Bacteria (Reflex) Many A
(Negative)
05/02/24 13:32
05/02/24 13:32
Vital Signs
Initial and Last Documented VS:
Initial Vital Signs
Temp Pulse Resp BP Pulse Ox
99.7 F 71 16 130/62 97
05/02/24 13:26 05/02/24 13:26 05/02/24 13:26 05/02/24 13:26 05/02/24 13:26
Last Documented Vital Signs
Temp Pulse Resp BP Pulse Ox
99.7 F 55 16 115/48 97
05/02/24 13:26 05/02/24 16:30 05/02/24 16:30 05/02/24 16:00 05/02/24 16:30
*Critical Care Note
Total Time (30-74mins, 75-104mins- exclusive of procedures): Not Applicable
ED Attending Note
-
Portions of this chart may have been created with voice recognition software.� Occasional wrong word or��sound alike� substitutions may have occurred due to the inherent limitations of voice recognition software.
Discharge Plan
Departure
Patient Disposition: Home (Routine Discharge)
Date of Disposition: 05/02/24
Time of Disposition: 16:06
Patient with high blood pressure during this ER visit?: Yes
Discharge Problem:
Urinary tract infection
Prescriptions:
New
cephalexin 500 mg tablet
500 mg PO Q8H Qty: 21 0RF
Rx Instructions:
PATIENT STATES SHE HAS TOLERATED KEFLEX/CEPHALEXIN IN THE PAST
No Action
atorvastatin [Lipitor] 40 mg Tablet
40 mg PO DAILY
divalproex 500 mg Tablet,Delayed Release (Dr/Ec)
500 mg PO QPM
aspirin 81 mg Tablet,Delayed Release (Dr/Ec)
81 mg PO DAILY
vitamin B complex Tablet
1 tab PO DAILY
folic acid 1 mg Tablet
1 mg PO HS
mirtazapine 15 mg Tablet
15 mg PO HS
levothyroxine [Synthroid] 112 mcg Tablet
112 mcg PO DAILY
duloxetine [Cymbalta] 60 mg Capsule,Delayed Release(Dr/Ec)
60 mg PO DAILY
carvedilol 3.125 mg Tablet
3.125 mg PO BID Qty: 0 0RF
Eliquis 5 mg Tablet
5 mg PO BID Qty: 0 0RF
amiodarone [Pacerone] 200 mg Tablet
200 mg PO DAILY Qty: 0 0RF
pantoprazole 40 mg Tablet,Delayed Release (Dr/Ec)
40 mg PO DAILY Qty: 0 0RF
cholecalciferol (vitamin D3) 50 mcg (2,000 unit) Tablet
50 mcg PO DAILY Qty: 0 0RF
furosemide 40 mg Tablet
40 mg PO DAILY Qty: 30 0RF
insulin glargine [Lantus Solostar U-100 Insulin] 100 unit/mL (3 mL) Insulin Pen
5 unit SC HS Qty: 5 0RF
tolterodine 2 mg tablet
2 mg PO HS
Acidophilus Capsule
175 mg PO DAILY
metformin 500 mg tablet extended release 24 hr
500 mg PO BID
magnesium oxide 400 mg magnesium Tablet
400 mg PO DAILY
Referrals:
UNKNOWN - PT DOES,NOT KNOW [Family Provider] -
Activity Restrictions/Additional Instructions:
Your white blood cell count is normal. Your kidney function is slightly worse but near baseline. Your glucose level currently is 98. Your calcium level was higher than expected at 11.5�I recommend you follow your primary care further evaluation.
Return here if worse or other concerns.
Interventions
Interventions:
*Risk Screen - Suicide Last Done: 05/02/24 13:26
*General Assessment Last Done: 05/02/24 13:26
*Neglect/Abuse Screening Last Done: 05/02/24 13:26
ED- Fall Risk Assessment Last Done: 05/02/24 14:42
*ED COVID-19 Vaccine History Last Done: 05/02/24 13:26
*Nursing Disposition Last Done: 05/02/24 16:51
ED-Female Genitourinary Assessment Last Done: 05/02/24 14:42
Discharge Date and Time
Discharge Date/Time: 05/02/24 16:51
Print Language: SENEGALESE
[2024-05-02 15:00] VITALS: BP 110/55
[2024-05-02 15:07] LABS: Urine Albumin Trace (Neg - Trace); Urine Bilirubin Negative (Negative); Urine Character Slightly Cloudy (Clear); Urine Color Yellow; Urine Glucose Negative (Negative); Urine Ketone Negative (Negative); Urine Leukocyte 2+ (Negative); Urine Nitrite Negative (Negative); Urine Occult Blood Negative (Negative); Urine Urobilinogen Negative (Neg - 1+)
[2024-05-02 15:16] LABS: Urine White Cell >100 /HPF (0-5)
[2024-05-02 15:17] LABS: Urine Bacteria Many (Negative); Urine Squamous Cell 0-2 /LPF (Few)
[2024-05-02 16:00] VITALS: BP 115/48
[2024-05-02] MEDS: KEFLEX 500 MG PO (16:19)
== END 2024-05-02 16:51 | disposition home or self-care (01) ==
LOC: EMR 13:24
PROVIDERS: Emergency Medicine; Student in an Organized Health Care Education/Training Program; EMERGENCY PHYSICIAN Emergency Medicine
DX: N39.0 Urinary tract infection, site not specified (principal); E78.00 Pure hypercholesterolemia, unspecified; E11.9 Type 2 diabetes mellitus without complications; I11.0 Hypertensive heart disease with heart failure; Z79.4 Long term (current) use of insulin; Z87.440 Personal history of urinary (tract) infections
CPT/HCPCS: 99283; 80053; 81003; 81015; 85025; 87077; 87086

== ENCOUNTER 2024-05-12 02:10 | Emergency (ER) | payer MEDICARE, OTHER, SELFPAY ==
[2024-05-12] VITALS (9 sets, daily range): BP systolic 135–181; BP diastolic 56–87; BMI 24.8
[2024-05-12 03:18] LABS: % Basophils 0.9 % (0-2); % Immature Granulocytes 0.5 % (0-0.5); % Lymphocytes 13.4 % (20.5-51.1); % Monocytes 6.9 % (1.7-9.3); % Neutrophils 73.3 % (42.2-75.2); Absolute Basophils 0.1 10^3/uL (0-0.2); Absolute Eosinophils 0.6 10^3/uL (0-0.7); Absolute Immature Granulocytes 0.1 10^3/uL (0-0.05); Absolute Lymphocytes 1.6 10^3/uL (1.2-3.4); Absolute Monocytes 0.8 10^3/uL (0.1-0.6); Absolute Neutrophils 8.6 10^3/uL (1.4-6.5); Hematocrit 33.3 % (37.0-47.0); Hemoglobin 11.2 g/dL (12.0-16.0); Mean Corp Hgb Conc. 33.6 g/dL (33.0-37.0); Mean Corpuscular Hgb 25.3 pg (27.0-31.0); Mean Corpuscular Volume 75.3 fL (81.0-99.0); Nucleated Red Blood Cells % 0 %; Platelet Count 232 10^3/uL (130-400); Red Blood Cell Count 4.42 10^6/uL (4.20-5.40); White Blood Cell Count 11.8 10^3/uL (4.8-10.8)
--- NOTE | 2024-05-12 03:21 | ED.GENMED ---
History of Present Illness
<MADISYN Carey - Last Filed: 05/12/24 06:32>
General
Chief Complaint: Abdominal Symptoms
Source: patient and spouse
Exam Limitations: none
Time Seen by Provider: 05/12/24 03:06
Nursing documentation reviewed up to this point in time: agreed with
History of Present Illness
History of Present Illness:
Pt is a 78 y/o F with pmhx of stroke, trigeminal neuralgia, JAN, afib, CHF, CAD, HTN, HLD, [place], UTI, Diabetes insipidus, and hypothyroid presents with complaints of lower abdominal pain and constipation x 2 weeks. The pt was last seen here on 05/02/24
for a UTI and was prescribed Keflex. She has not had a bowel movement in 2 weeks, since starting the antibiotics. There is associated anal leakage. She has tried Dulcolax without relief. She has been able to eat and drink normally. She is wheelchair
bound. Denies fever, SOB, and changes in urination.
78-year-old female who presents with constipation. Agree with above by student. 78-year-old complaint lower abdominal discomfort and constipation. Tried at home medications without any relief. No fevers. No vomiting.
<Bry Cornell DO - Last Filed: 05/12/24 06:57>
History of Present Illness
History of Present Illness:
Pt is a 78 y/o F with pmhx of stroke, trigeminal neuralgia, JAN, afib, CHF, CAD, HTN, HLD, [place], UTI, Diabetes insipidus, and hypothyroid presents with complaints of lower abdominal pain and constipation x 2 weeks. The pt was last seen here on 05/02/24
for a UTI and was prescribed Keflex. She has not had a bowel movement in 2 weeks, since starting the antibiotics. There is associated anal leakage. She has tried Dulcolax without relief. She has been able to eat and drink normally. Denies fever,
SOB, and changes in urination.
78-year-old female who presents with constipation. Agree with above by student. 78-year-old complaint lower abdominal discomfort and constipation. Tried at home medications without any relief. No fevers. No vomiting.
Past History
<MADISYN Carey - Last Filed: 05/12/24 06:32>
Past History
ED Past Medical History: Arrthythmia, HTN, Hypercholesterolemia and IDDM
ED Past Surgical History: Other
Social History
Tobacco: Non-smoker
Alcohol: None
Drug: Other
Personal:
Living: with family
Employment: Retired
Family History
Family History: Other
<Bry Cornell DO - Last Filed: 05/12/24 06:57>
Past History
ED Past Medical History: CAD and CHF
Review of Systems
<MADISYN Carey - Last Filed: 05/12/24 06:32>
Review of Systems
Allergies reviewed?: Yes
Constitutional: Reports no symptoms
EENT: Reports no symptoms
Respiratory: Reports no symptoms
Cardiac: Reports no symptoms
ABD/GI: Reports abdominal pain and constipated
: Reports no symptoms
Musculoskeletal: Reports no symptoms
Skin: Reports no symptoms
Neurological: Reports no symptoms
Endocrine: Reports no symptoms
Hematologic/Lymphatic: Reports no symptoms
Psychiatric: Reports no symptoms
Phy Exam
<MADISYN Carey - Last Filed: 05/12/24 06:32>
General Physical Exam
General Presentation: moderate distress
General age: appears stated age
General Skin: warm and dry
General Habitus: normal
General Mental: alert
ENT Exam
ENT Exam: EOMI and neck supple
Eye Exam
Eye Exam: PERRL, EOMI, cornea clear and conjunctiva normal
Cardiovascular Exam
Cardiovascular Exam: regular rate/rhythm and normal peripheral pulses
Pulmonary Exam
Pulmonary Exam: lungs clear, no respiratory distress, no rales, chest non tender, no crackles, no rhonchi, no stridor, no wheezing and no cough
Gastrointestinal Exam
Gastrointestinal Exam: distended, guarding and tender
Palpation: left lower quadrant: Moderate tenderness and right lower quadrant: Moderate tenderness
Auscultation of Abdomen: hypoactive
Rectal Exam: impacted stool, poor sphincter tone, soft stool and other (Non-healing ulcer present above anus. Diaper rash present.)
Stool: green
Neurological Exam
Neurological Exam: alert, oriented x3, CN II-XII intact, no motor deficits, normal reflexs, no sensory deficits and speech normal
Musculoskeletal Exam
Musculoskeletal Exam: full ROM, no edema and neuro vasc intact
Skin Exam
Skin Exam: normal color and warm/dry
Psychiatric Exam
Psychiatric Exam: normal mood/affect
<Bry Cornell DO - Last Filed: 05/12/24 06:57>
Physical Exam
Physical Exam:
CONSTITUTIONAL Patient alert and oriented to person, place and time. Well-appearing. Vital signs reviewed.
HEAD atraumatic, normocephalic.
EYES eyelids normal to inspection, Extraocular muscles intact, Conjunctiva normal, Sclera normal.
NECK normal range of motion, Trachea midline, no jugular venous distention.
RESPIRATORY CHEST No respiratory distress noted, Chest expansion equal, Bilateral breath sounds clear.
CARDIOVASCULAR regular rate and rhythm, Heart sounds normal.
ABDOMEN moderate to severe suprapubic tenderness, mild distention
BACK normal inspection, no obvious deformities
UPPER EXTREMITY range of motion normal, Motor strength normal, no cyanosis, no edema.
LOWER EXTREMITY range of motion normal, Motor strength normal, no cyanosis, no edema.
NEURO Speech normal, No focal motor deficits, Isabel coma scale 15, Memory normal, Cranial Nerves intact to screening exam.
SKIN skin warm, dry, and normal in color.
Course
<MADISYN Carey - Last Filed: 05/12/24 06:32>
Orders/Labs/Results
Orders:
Orders
05/12/24 02:34
Abdomen Xray - 1 View [CR Abdomen - 1 View] Urgent
Comment:
Reason For Exam: abdominal pain, constipation
05/12/24 03:06
Complete Blood Count/With Diff Urgent
Comprehensive Metabolic Panel Urgent
05/12/24 03:55
Enema- Treatment ONCE
Type: Milk of Molasses
05/12/24 04:13
CT Abd/pel Without Iv Or Oral Urgent
Comment: changed due to labs and allergy per Dr
Reason For Exam: lower abd pain
Morphine Sulfate 4 mg IV NOW STA
05/12/24 04:14
0.9% Sodium Chloride 1000 ml [Nss] 1,000 ml IV BOLUS
05/12/24 04:55
[place] Placement- Treatment ONCE
Reason for insertion: Acute Retention
05/12/24 06:21
Urinalysis Reflex To Culture Urgent
Date Specimen was Collected: 05/12/24
Time Specimen was Collected: 06:19
Urine Microscopic Reflex Cult Urgent
Abnormal Lab Results
05/12/24 05/12/24
03:06 06:21
WBC 11.8 H 10^3/uL
(4.8-10.8)
Hgb 11.2 L g/dL
(12.0-16.0)
Hct 33.3 L %
(37.0-47.0)
MCV 75.3 L fL
(81.0-99.0)
MCH 25.3 L pg
(27.0-31.0)
RDW 21.0 H %
(11.5-14.5)
Abs Immat Gran (auto) 0.1 H 10^3/uL
(0-0.05)
Absolute Neuts (auto) 8.6 H 10^3/uL
(1.4-6.5)
Absolute Monos (auto) 0.8 H 10^3/uL
(0.1-0.6)
Lymphocytes % 13.4 L %
(20.5-51.1)
BUN 86 H mg/dl
(7-17)
Creatinine 1.6 H mg/dL
(0.6-1.0)
Glucose 237 H mg/dl
(70-99)
Calcium 11.3 H mg/dl
(8.4-10.2)
Ur Occult Blood Reflex 1+ A
(Negative)
Leukocyte Esterase Rfl Trace A
(Negative)
Urine RBC 21-25 A /HPF
(0-2)
Urine Bacteria (Reflex) Few A
(Negative)
05/12/24 03:06
05/12/24 03:06
Vital Signs
Initial and Last Documented VS:
Initial Vital Signs
Temp Pulse Resp BP Pulse Ox
98.6 F 77 16 155/62 96
05/12/24 02:13 05/12/24 02:13 05/12/24 02:13 05/12/24 02:13 05/12/24 02:13
Last Documented Vital Signs
Temp Pulse Resp BP Pulse Ox
98.6 F 75 15 155/62 97
05/12/24 02:13 05/12/24 02:17 05/12/24 02:17 05/12/24 02:16 05/12/24 02:17
<Bry Cornell, DO - Last Filed: 05/12/24 06:57>
Orders/Labs/Results
Orders:
Orders
05/12/24 02:34
Abdomen Xray - 1 View [CR Abdomen - 1 View] Urgent
Comment:
Reason For Exam: abdominal pain, constipation
10/04/24 03:06
Complete Blood Count/With Diff Urgent
Comprehensive Metabolic Panel Urgent
05/12/24 03:55
Enema- Treatment ONCE
Type: Milk of Molasses
05/12/24 04:13
CT Abd/pel Without Iv Or Oral Urgent
Comment: changed due to labs and allergy per Dr
Reason For Exam: lower abd pain
Morphine Sulfate 4 mg IV NOW STA
05/12/24 04:14
0.9% Sodium Chloride 1000 ml [Nss] 1,000 ml IV BOLUS
05/12/24 04:55
[place] Placement- Treatment ONCE
Reason for insertion: Acute Retention
05/12/24 06:21
Urinalysis Reflex To Culture Urgent
Date Specimen was Collected: 05/12/24
Time Specimen was Collected: 06:19
Urine Microscopic Reflex Cult Urgent
Abnormal Lab Results
05/12/24 05/12/24
03:06 06:21
WBC 11.8 H 10^3/uL
(4.8-10.8)
Hgb 11.2 L g/dL
(12.0-16.0)
Hct 33.3 L %
(37.0-47.0)
MCV 75.3 L fL
(81.0-99.0)
MCH 25.3 L pg
(27.0-31.0)
RDW 21.0 H %
(11.5-14.5)
Abs Immat Gran (auto) 0.1 H 10^3/uL
(0-0.05)
Absolute Neuts (auto) 8.6 H 10^3/uL
(1.4-6.5)
Absolute Monos (auto) 0.8 H 10^3/uL
(0.1-0.6)
Lymphocytes % 13.4 L %
(20.5-51.1)
BUN 86 H mg/dl
(7-17)
Creatinine 1.6 H mg/dL
(0.6-1.0)
Glucose 237 H mg/dl
(70-99)
Calcium 11.3 H mg/dl
(8.4-10.2)
Ur Occult Blood Reflex 1+ A
(Negative)
Leukocyte Esterase Rfl Trace A
(Negative)
Urine RBC 21-25 A /HPF
(0-2)
Urine Bacteria (Reflex) Few A
(Negative)
05/12/24 03:06
05/12/24 03:06
Vital Signs
Initial and Last Documented VS:
Initial Vital Signs
Temp Pulse Resp BP Pulse Ox
98.6 F 77 16 155/62 96
05/12/24 02:13 05/12/24 02:13 05/12/24 02:13 05/12/24 02:13 05/12/24 02:13
Last Documented Vital Signs
Temp Pulse Resp BP Pulse Ox
98.6 F 75 15 155/62 97
05/12/24 02:13 05/12/24 02:17 05/12/24 02:17 05/12/24 02:16 05/12/24 02:17
<MADISYN Carey - Last Filed: 05/12/24 06:32>
MDM/Problems Addressed
Differential Diagnosis Includes:
Constipation
<Bry Cornell DO - Last Filed: 05/12/24 06:57>
MDM/Problems Addressed
MDM/Problems Addressed:
Constipation, urinary retention, stercoral colitis
<MADISYN Carey - Last Filed: 05/12/24 06:32>
*Critical Care Note
Total Time (30-74mins, 75-104mins- exclusive of procedures): Not Applicable
<Bry Cornell DO - Last Filed: 05/12/24 06:57>
*Radiology
Radiology exam reviewed: preliminary read by ED provider (No obvious free air)
*Pulse Oximetry
Patient hypoxic: no
Data Reviewed
Review of Other/Old Records Reveals: Labs (Prior labs reviewed and creatinine at baseline. Is slightly hypercalcemic)
Source: patient and spouse
<Bry Cornell DO - Last Filed: 05/12/24 06:57>
Patient Management
Escalation/DeEscalation of care consider admission/obs:
Patient feels much better. She has been seeing urology and recently got put on Gemtesa. Question whether or not it may have caused urinary retention. The patient is mostly bedridden and suspect that contributes to her constipation. Will give
Dulcolax suppository but also MiraLAX twice a day for the next 5 days. She will also follow-up with her urologist. Will leave urinary catheter in place at this time given the fact that she had more than 1 L out in her bladder. She will follow-up
with her urologist
<MADISYN Carey - Last Filed: 05/12/24 06:32>
Update Note
Update Note:
05/12/24, 0400: Manual disimpaction performed. Stool was green and soft. The pt has a known non healing ulcer and diaper rash around the anus. Pt reported improved abdominal pressure after the disimpaction. She continues to have complaints of
abdominal pain.
05/12/24, 0610: Pt received her catheter and enema which improved her abdominal pressure. She stated that she feels comfortable to return home.
ED Attending Note
<MADISYN Carey - Last Filed: 05/12/24 06:32>
-
Portions of this chart may have been created with voice recognition software.� Occasional wrong word or��sound alike� substitutions may have occurred due to the inherent limitations of voice recognition software.
<Bry Cornell DO - Last Filed: 05/12/24 06:57>
ED Attending Note
Patient seen and examined by attending physician: Yes
I performed the substantive portion of visit, reviewed & personally made and approve the management plan that is documented in note by myself or NATHALIA.: Yes
Discharge Plan
Departure
Patient Disposition: Home (Routine Discharge)
Date of Disposition: 05/12/24
Time of Disposition: 06:54
Patient with high blood pressure during this ER visit?: Yes
Discharge Problem:
Acute urinary retention, Constipation, Hypercalcemia
Instructions: Constipation, Adult (DC), Urinary retention, BLOOD PRESSURE
Prescriptions:
No Action
atorvastatin [Lipitor] 40 mg Tablet
40 mg PO DAILY
divalproex 500 mg Tablet,Delayed Release (Dr/Ec)
500 mg PO QPM
aspirin 81 mg Tablet,Delayed Release (Dr/Ec)
81 mg PO DAILY
vitamin B complex Tablet
1 tab PO DAILY
folic acid 1 mg Tablet
1 mg PO HS
mirtazapine 15 mg Tablet
15 mg PO HS
levothyroxine [Synthroid] 112 mcg Tablet
112 mcg PO DAILY
duloxetine [Cymbalta] 60 mg Capsule,Delayed Release(Dr/Ec)
60 mg PO DAILY
carvedilol 3.125 mg Tablet
3.125 mg PO BID Qty: 0 0RF
Eliquis 5 mg Tablet
5 mg PO BID Qty: 0 0RF
amiodarone [Pacerone] 200 mg Tablet
200 mg PO DAILY Qty: 0 0RF
pantoprazole 40 mg Tablet,Delayed Release (Dr/Ec)
40 mg PO DAILY Qty: 0 0RF
cholecalciferol (vitamin D3) 50 mcg (2,000 unit) Tablet
50 mcg PO DAILY Qty: 0 0RF
furosemide 40 mg Tablet
40 mg PO DAILY Qty: 30 0RF
insulin glargine [Lantus Solostar U-100 Insulin] 100 unit/mL (3 mL) Insulin Pen
5 unit SC HS Qty: 5 0RF
tolterodine 2 mg tablet
2 mg PO HS
Acidophilus Capsule
175 mg PO DAILY
metformin 500 mg tablet extended release 24 hr
500 mg PO BID
magnesium oxide 400 mg magnesium Tablet
400 mg PO DAILY
cephalexin 500 mg tablet
500 mg PO Q8H Qty: 21 0RF
Rx Instructions:
PATIENT STATES SHE HAS TOLERATED KEFLEX/CEPHALEXIN IN THE PAST
Referrals:
Argelia Narayanan NP [Family Provider] -
Activity Restrictions/Additional Instructions:
Please stop your Gemtesa for now.
Please use MiraLAX twice a day for the next 5 days.
Please see your doctor in the next 2 to 3 days for follow-up and reevaluation and repeat labs as your calcium was noted to be a little bit high. Please drink plenty of fluids. Please also see your urologist in the next 1 week for follow-up and
reevaluation. Return immediately for fevers, abdominal pain, vomiting, shortness of breath, weakness of any kind or any other concerns.
Interventions
Interventions:
*Risk Screen - Suicide Last Done: 05/12/24 02:13
*General Assessment Last Done: 05/12/24 02:13
*Neglect/Abuse Screening Last Done: 05/12/24 02:13
*ED COVID-19 Vaccine History Last Done: 05/12/24 02:13
AY-Cddvrl-Jduccbantj Assessment Last Done: 05/12/24 02:31
Discharge Date and Time
Print Language: SINHALA
[2024-05-12 03:30] LABS: ALT (SGPT) 26 U/L (0-35); AST (SGOT) 35 U/L (14-36); Albumin 3.9 g/dl (3.5-5.0); Alkaline Phosphatase 115 U/L (38-126); Blood Urea Nitrogen 86 mg/dl (7-17); Calcium 11.3 mg/dl (8.4-10.2); Carbon Dioxide 24 mmol/L (22-30); Chloride 99 mmol/L (98-107); Estimated Creatinine Clearance 23 ml/min; Glucose 237 mg/dl (70-99); Potassium 4.2 mmol/L (3.5-5.1); Sodium 137 mmol/L (135-145); Total Bilirubin 0.3 mg/dl (0.2-1.3); Total Protein 7.4 g/dl (6.3-8.2); eGFR 33.22
[2024-05-12] MEDS: NSS 1000 IV (04:22)
[2024-05-12] MEDS: MORPHINE SULFATE 4 MG IV (04:23)
[2024-05-12 06:36] LABS: Urine Albumin Negative (Neg - Trace); Urine Bilirubin Negative (Negative); Urine Character Clear (Clear); Urine Color Yellow; Urine Glucose Negative (Negative); Urine Ketone Negative (Negative); Urine Leukocyte Trace (Negative); Urine Nitrite Negative (Negative); Urine Occult Blood 1+ (Negative); Urine Urobilinogen Negative (Neg - 1+)
[2024-05-12 06:53] LABS: Urine Bacteria Few (Negative); Urine Red Blood Cell 21-25 /HPF (0-2); Urine Squamous Cell 0-2 /LPF (Few)
--- NOTE | 2024-05-12 07:26 | EDRN ---
Dr. Resendiz (ED resident) in to see pt.
--- NOTE | 2024-05-12 10:14 | EDRN ---
EMS administered discharge paper work, home medication list, allergies and verbal report on treatments and meds administered here.
== END 2024-05-12 10:16 | disposition home or self-care (01) ==
LOC: EMR 02:10
PROVIDERS: EMERGENCY PHYSICIAN Emergency Medicine; FAMILY PHYSICIAN Nurse Practitioner Adult Health
DX: R33.9 Retention of urine, unspecified (principal); K59.00 Constipation, unspecified; E83.52 Hypercalcemia; R10.30 Lower abdominal pain, unspecified; I11.0 Hypertensive heart disease with heart failure; I50.9 Heart failure, unspecified; I25.10 Atherosclerotic heart disease of native coronary artery without angina pectoris; G47.33 Obstructive sleep apnea (adult) (pediatric); E78.00 Pure hypercholesterolemia, unspecified; E11.9 Type 2 diabetes mellitus without complications; E03.9 Hypothyroidism, unspecified; E27.9 Disorder of adrenal gland, unspecified; I48.91 Unspecified atrial fibrillation; Z86.73 Personal history of transient ischemic attack (TIA), and cerebral infarction without residual deficits; Z87.440 Personal history of urinary (tract) infections; Z99.3 Dependence on wheelchair
CPT/HCPCS: 99284; 96374; 96361; 74018; 74176; 80053; 81003; 81015; 85025

== ENCOUNTER 2024-08-13 17:56 | Inpatient (IN) | payer MEDICARE, OTHER, SELFPAY ==
[2024-08-13] VITALS (8 sets, daily range): BP systolic 98–137; BP diastolic 45–87; BMI 31.3
[2024-08-13 13:23] LABS: % Basophils 1.6 % (0-2); % Eosinophils 9.2 % (0-6); % Immature Granulocytes 0.5 % (0-0.5); % Lymphocytes 23.9 % (20.5-51.1); % Monocytes 7.7 % (1.7-9.3); % Neutrophils 57.1 % (42.2-75.2); Absolute Basophils 0.1 10^3/uL (0-0.2); Absolute Eosinophils 0.7 10^3/uL (0-0.7); Absolute Lymphocytes 1.8 10^3/uL (1.2-3.4); Absolute Monocytes 0.6 10^3/uL (0.1-0.6); Absolute Neutrophils 4.4 10^3/uL (1.4-6.5); Hematocrit 40.1 % (37.0-47.0); Mean Corp Hgb Conc. 32.4 g/dL (33.0-37.0); Mean Corpuscular Hgb 29.3 pg (27.0-31.0); Mean Corpuscular Volume 90.3 fL (81.0-99.0); Mean Platelet Volume 10.5 fL (7.4-10.4); Nucleated Red Blood Cells % 0 %; Platelet Count 218 10^3/uL (130-400); Red Blood Cell Count 4.44 10^6/uL (4.20-5.40); Red Cell Dist. Width 15.9 % (11.5-14.5); White Blood Cell Count 7.6 10^3/uL (4.8-10.8)
--- NOTE | 2024-08-13 13:55 | ED.GENMED ---
History of Present Illness
General
Chief Complaint: Urinary Symptoms
Source: family
Exam Limitations: other (mild confusion )
Time Seen by Provider: 08/13/24 13:02
Nursing documentation reviewed up to this point in time: agreed with
History of Present Illness
History of Present Illness:
Patient is a 79-year-old female with chronic indwelling Tobin brought by daughters daughters reports since last Wednesday patient has seemed to be weak. They were concerned about UTI and family doctor called them and doxycycline. She has been on
doxycycline since however family reports patient continues to get weaker. In addition for the past 4 days they have noticed patient is more confused than normal. Normally she will ambulate with assistance and with a walker but she was too weak
to do so. They are not aware of any trauma the patient is on blood thinner/Eliquis.
Past History
Past History
ED Past Medical History: Arrthythmia, CAD, CHF, HTN, Hypercholesterolemia and IDDM
ED Past Surgical History: Other
Social History
Tobacco: Non-smoker
Alcohol: None
Drug: Other
Personal:
Living: with family
Employment: Retired
Family History
Family History: Other
Review of Systems
Review of Systems
Allergies reviewed?: Yes
All Other Systems: ROS reviewed and negative except as documented in HPI and ROS
Constitutional: Reports fatigue and other (increasing weakness as per family )
Respiratory: Reports no symptoms
Cardiac: Reports no symptoms
ABD/GI: Reports no symptoms
Musculoskeletal: Reports no symptoms
Skin: Reports no symptoms
Neurological: Reports other (increased confusion as per family )
Psychiatric: Reports no symptoms
Phy Exam
General Physical Exam
General Presentation: no apparent distress
General age: appears stated age
General Skin: warm and dry
General Habitus: normal
General Mental: alert
General Hydration: appears well hydrated
Cardiovascular Exam
Cardiovascular Exam: regular rate/rhythm, no murmur and normal peripheral pulses
Pulmonary Exam
Pulmonary Exam: lungs clear and no respiratory distress
Neurological Exam
Neurological Exam: alert
Musculoskeletal Exam
Musculoskeletal Exam: full ROM
Skin Exam
Skin Exam: normal color and warm/dry
Psychiatric Exam
Psychiatric Exam: normal mood/affect
Course
Orders/Labs/Results
Orders:
Orders
08/13/24 13:02
IV Insert/Care/Rem.- Treatment PRN
08/13/24 13:15
Complete Blood Count/With Diff Urgent
08/13/24 13:52
Comprehensive Metabolic Panel Urgent
Urinalysis Reflex To Culture Urgent
Date Specimen was Collected: 08/13/24
Time Specimen was Collected: 13:02
Urine Microscopic Reflex Cult Urgent
Urine Culture Urgent
CHIDI Source: U
Specimen Description:
Date Specimen was Collected: 08/13/24
Time Specimen was Collected: 13:02
08/13/24 14:57
Chest [CR Chest - 2 Views ] Urgent
Comment:
Reason For Exam: weakness
08/13/24 14:58
CT Head W/o Iv Contrast Urgent
Comment:
Reason For Exam: confusion
08/13/24 15:54
0.9% Sodium Chloride 500 ml [Nss] 500 ml IV BOLUS
08/13/24 16:12
Ertapenem [Invanz] 1,000 mg 0.9% Sodium Chloride [Nss] 50 ml IV NOW
Abnormal Lab Results
08/13/24 08/13/24
13:15 13:52
MCHC 32.4 L g/dL
(33.0-37.0)
RDW 15.9 H %
(11.5-14.5)
MPV 10.5 H fL
(7.4-10.4)
Eosinophils % 9.2 H %
(0-6)
BUN 64 H mg/dl
(7-17)
Creatinine 1.9 H mg/dL
(0.6-1.0)
Glucose 148 H mg/dl
(70-99)
Ur Occult Blood Reflex Trace A
(Negative)
Urine Nitrite (Reflex) Positive A
(Negative)
Leukocyte Esterase Rfl 2+ A
(Negative)
Urine RBC 7-10 A /HPF
(0-2)
Urine WBC (Reflex) 40-50 A /HPF
(0-5)
Urine Bacteria (Reflex) Many A
(Negative)
08/13/24 13:15
08/13/24 14:06
Vital Signs
Initial and Last Documented VS:
Initial Vital Signs
Temp Pulse Resp BP Pulse Ox
98.2 F 54 14 128/78 97
08/13/24 12:59 08/13/24 12:59 08/13/24 12:59 08/13/24 12:59 08/13/24 12:59
Last Documented Vital Signs
Temp Pulse Resp BP Pulse Ox
98.2 F 58 15 128/78 96
08/13/24 12:59 08/13/24 16:02 08/13/24 16:02 08/13/24 12:59 08/13/24 15:15
MDM/Problems Addressed
MDM/Problems Addressed:
Patient is a 79-year-old female with chronic indwelling Tobin presents for increasing weakness recent confusion. Patient with UTI on exam tobin changed urine infected. with weakness /confusion admission is warranted .
Patient with elevated BUN/creatinine creatinine is elevated 1.9 which is increased from previous 1.6 (however at baseline) patient. no acute findings on chest xray read by me, awaiting official report. Patient is on anticoagulation with increased
confusion though likely UTI will check CT head.
Chronic conditions affecting care:
Chronic indwelling Tobin, A-fib CHF CAD hypertension hyperlipidemia
*Radiology
Radiology exam reviewed: radiology read reviewed
*Pulse Oximetry
Patient hypoxic: no
*Critical Care Note
Total Time (30-74mins, 75-104mins- exclusive of procedures): Not Applicable
ED Attending Note
-
Portions of this chart may have been created with voice recognition software.� Occasional wrong word or��sound alike� substitutions may have occurred due to the inherent limitations of voice recognition software.
Discharge Plan
Departure
Patient Disposition: Admit
Date of Disposition: 08/13/24
Time of Disposition: 15:51
Admit to: Med/Surg
Admit to doctor: hospitalist
Presentation/result/management discussed w/ accepting MD/DO: Hospitalist
Patient with high blood pressure during this ER visit?: No
Condition: Fair
Covid-19: Not Applicable
Discharge Problem:
Acute UTI, Weakness, Acute renal insufficiency
Prescriptions:
No Action
atorvastatin [Lipitor] 40 mg Tablet
40 mg PO DAILY
divalproex 500 mg Tablet,Delayed Release (Dr/Ec)
500 mg PO QPM
aspirin 81 mg Tablet,Delayed Release (Dr/Ec)
81 mg PO DAILY
vitamin B complex Tablet
1 tab PO DAILY
folic acid 1 mg Tablet
1 mg PO HS
duloxetine [Cymbalta] 60 mg Capsule,Delayed Release(Dr/Ec)
90 mg PO DAILY
Eliquis 5 mg Tablet
5 mg PO BID Qty: 0 0RF
amiodarone [Pacerone] 200 mg Tablet
200 mg PO DAILY Qty: 0 0RF
pantoprazole 40 mg Tablet,Delayed Release (Dr/Ec)
40 mg PO DAILY Qty: 0 0RF
cholecalciferol (vitamin D3) 50 mcg (2,000 unit) Tablet
50 mcg PO DAILY Qty: 0 0RF
furosemide 40 mg Tablet
40 mg PO DAILY Qty: 30 0RF
magnesium oxide 400 mg magnesium Tablet
400 mg PO DAILY
trimethoprim 100 mg Tablet
50 mg PO DAILY
ferrous sulfate 325 mg (65 mg iron) Tablet
325 mg PO DAILY
levothyroxine 125 mcg Tablet
125 mcg PO DAILY
gabapentin 100 mg Capsule
200 mg PO TID
estradiol 0.01 % (0.1 mg/gram) Cream
1 applic VAGINAL QWEEK
insulin lispro [Humalog KwikPen Insulin] 100 unit/mL insulin pen
5 unit SC AC
Visbiome 112.5 billion cell Capsule
1 cap PO DAILY
Mounjaro 2.5 mg/0.5 mL Pen Injector
2.5 mg SC TH
Rx Instructions:
for 4 weeks
doxycycline hyclate 100 mg Tablet
100 mg PO BID
insulin glargine [Lantus Solostar U-100 Insulin] 100 unit/mL (3 mL) Insulin Pen
10 unit SC HS
Referrals:
Mitchell Hahn MD [Family Provider] -
Interventions
Interventions:
*Risk Screen - Suicide Last Done: 08/13/24 12:59
*General Assessment Last Done: 08/13/24 12:59
*Neglect/Abuse Screening Last Done: 08/13/24 12:59
*ED COVID-19 Vaccine History Last Done: 08/13/24 12:59
ED-Female Genitourinary Assessment Last Done: 08/13/24 12:59
Discharge Date and Time
Print Language: DIVEHI
[2024-08-13 14:11] LABS: Urine Albumin Trace (Neg - Trace); Urine Bilirubin Negative (Negative); Urine Character Slightly Cloudy (Clear); Urine Color Yellow; Urine Glucose Negative (Negative); Urine Ketone Negative (Negative); Urine Leukocyte 2+ (Negative); Urine Nitrite Positive (Negative); Urine Occult Blood Trace (Negative); Urine Specific Gravity 1.015 (<1.030); Urine Urobilinogen Negative (Neg - 1+)
[2024-08-13 14:28] LABS: Urine Squamous Cell 16-20 /LPF (Few)
[2024-08-13 14:30] LABS: Urine Bacteria Many (Negative); Urine White Cell 40-50 /HPF (0-5)
[2024-08-13 14:43] LABS: ALT (SGPT) 20 U/L (0-35); AST (SGOT) 32 U/L (14-36); Albumin 4.2 g/dl (3.5-5.0); Alkaline Phosphatase 104 U/L (38-126); Blood Urea Nitrogen 64 mg/dl (7-17); Calcium 10.2 mg/dl (8.4-10.2); Carbon Dioxide 30 mmol/L (22-30); Chloride 101 mmol/L (98-107); Estimated Creatinine Clearance 22 ml/min; Glucose 148 mg/dl (70-99); Potassium 4.5 mmol/L (3.5-5.1); Sodium 142 mmol/L (135-145); Total Bilirubin 0.4 mg/dl (0.2-1.3); Total Protein 7.5 g/dl (6.3-8.2); eGFR 26.86
[2024-08-13] MEDS: INVANZ 60 MG IV (17:24)
[2024-08-13] MEDS: NSS 500 IV (17:24)
--- NOTE | 2024-08-13 17:28 | HPS.HSE ---
Family Physician
-
Family Physician: Mitchell Hahn
Chief Complaint
-
weak and AMS
History of Present Illness
HPI
78F HX CAUTI, chronic indwelling [place] A-Fib, CKD3b, Chronic HFrEF, HTN seen at ER:
- brought by daughters daughters since Wednesday patient has seemed to be weak.
- concerned about UTI and family doctor called them and doxycycline.
- She has been on doxycycline since however family reports patient continues to get weaker.
- In addition for the past 4 days they have noticed patient is more confused than normal.
- Normally she will ambulate with assistance and with a walker but she was too weak to do so.
- They are not aware of any trauma the patient is on
Medical History
Past Medical History
Past Medical History: Reports Other
Additional Past Medical History:
Chronic systolic congestive heart failure, type II non-STEMI myocardial infarction
Type 2 diabetes mellitus
History of acute kidney injury on chronic kidney disease stage III, history of shock related to ischemic colitis and extended spectrum beta-lactamase resistant Klebsiella urinary tract infection
Acute catheter-associated deep venous thrombosis in the right arm (midline placement)
Paroxysmal atrial fibrillation
Anemia of chronic disease
Trigeminal neuralgia
Hypothyroidism
Hyperlipidemia
Overactive bladder
Chronic pain/fibromyalgia/depression
History of subdural hematoma
Coronary artery disease status post stents with left bundle branch block
Previous history of stroke
Obstructive sleep apnea
Essential hypertension
Past Surgical History: Reports Other
Additional Past Surgical History:
Left shoulder replacement complicated by septic shoulder
Social History
Tobacco: Non-smoker
Alcohol: None
Drug: None
Family History
Family History: Not pertinent
Allergies / Home Medications
Allergies reflects when Allergies were last updated in [facility].
Home Medications with original date entered in [facility]
Allergy/Medication List:
Allergies
Allergy/AdvReac Type Severity Reaction Status Date / Time
cephalexin Allergy Unknown Verified 03/20/24 19:54
ciprofloxacin Allergy Hives Verified 03/20/24 19:54
formaldehyde Allergy Shortness Verified 03/20/24 19:54
of Breath
Iodinated Contrast Media Allergy Hives Verified 03/20/24 19:54
metoprolol Allergy Itching Verified 03/20/24 19:54
Penicillins Allergy Unknown Verified 03/20/24 19:54
piperacillin [From Zosyn] Allergy Unknown Verified 03/20/24 19:54
pregabalin [From Lyrica] Allergy Hives Verified 03/20/24 19:54
shellfish derived Allergy Unknown Verified 03/20/24 19:54
Ducxqjp-[id number]-BlL Reductase Allergy Unknown Verified 03/20/24 19:54
Inhibitor
Sulfa (Sulfonamide Allergy Unknown Verified 03/20/24 19:54
Antibiotics)
tazobactam [From Zosyn] Allergy Unknown Verified 03/20/24 19:54
vancomycin Allergy Rash Verified 03/20/24 19:54
Home Medications
aspirin 81 mg tablet,delayed release 81 mg PO DAILY Blood Clot Prevention/Tx 05/17/23
atorvastatin 40 mg tablet (Lipitor) 40 mg PO DAILY High Cholesterol 05/17/23
divalproex 500 mg tablet,delayed release 500 mg PO QPM Neurological Condition 05/17/23
duloxetine 60 mg capsule,delayed release (Cymbalta) 60 mg PO DAILY Neurological Condition 05/17/23
folic acid 1 mg tablet 1 mg PO HS Supplement 05/17/23
levothyroxine 112 mcg tablet (Synthroid) 112 mcg PO DAILY Thyroid 05/17/23
mirtazapine 15 mg tablet 15 mg PO HS Mental Health/Anxiety 05/17/23
vitamin B complex 1 tab PO DAILY Supplement 05/17/23
amiodarone 200 mg tablet (Pacerone) 200 mg PO DAILY Arrhythmia #0 tabs 01/26/24
apixaban 5 mg tablet (Eliquis) 5 mg PO BID Blood clot prevention/tx #0 tabs 01/26/24
carvedilol 3.125 mg tablet 3.125 mg PO BID Heart Failure #0 tabs 01/26/24
cholecalciferol (vitamin D3) 50 mcg (2,000 unit) tablet 50 mcg PO DAILY Supplement #0 tabs 01/26/24
pantoprazole 40 mg tablet,delayed release 40 mg PO DAILY Gastrointestinal issue #0 tabs 01/26/24
furosemide 40 mg tablet 40 mg PO DAILY Fluid retention/Swelling #30 tabs 02/08/24
insulin glargine 100 unit/mL (3 mL) subcutaneous pen (Lantus Solostar U-100 Insulin) 5 unit (0.05 mL) SC HS Diabetes #5 ea 02/08/24
Lactobacillus acidophilus (Acidophilus capsule) 175 mg PO DAILY 03/20/24
magnesium oxide 400 mg PO DAILY 03/20/24
metformin 500 mg tablet,extended release 24 hr 500 mg PO BID 03/20/24
tolterodine 2 mg tablet 2 mg PO HS 03/20/24
Review of Systems
-
History Source: Patient
A 12 point ROS was completed and negative except as noted: Yes
Constitutional: Reports Fatigue; Denies Fever or Chills
EENT: Denies Sore Throat
Respiratory: Denies Cough or Trouble Breathing
Cardiac: Denies Chest Pain or Palpitations
Abdomen/GI: Reports Nausea and Anorexia; Denies Abdominal Pain, Vomiting, Diarrhea or Constipated
: Reports Dysuria, Frequency and Urgency; Denies Flank Pain or Bleeding
Musculoskeletal: Denies Joint Pain or Edema
Neurological: Reports Other (confused )
Physical Exam
Vital Signs
Vital Signs
Temp Pulse Resp BP Pulse Ox
98.2 F 64 15 105/87 95
08/13/24 12:59 08/13/24 17:15 08/13/24 17:15 08/13/24 17:00 08/13/24 16:06
Physical Exam
General: No Apparent Distress (not toxic ) and Other (78y F i no acute distress. Mild pallor.)
HEENT: Moist mucous membranes and PERRLA
Respiratory: Clear; No Wheezes, Rales or Rhonchi
Cardiac: S1/S2, Regular Rhythm and Murmur (II/ RACHEL)
GI: Soft, Non Distended and Normal Bowel Sounds
Genito-urinary: Other (Pos suprapubic tenderness. No CVAT.)
Musculoskeletal: No Clubbing, No Cyanosis and Other (Trace edema bilateral ankles.)
Neuro: AO x 3 and Other (L facial droop and mild dysarthria is appreciated. LUE difficult to assess secondary to prior surgeries (multiple) and acquired deformity / weakness. No appreciable LLE weakness.)
Laboratory Results
-
08/13/24 13:15
08/13/24 14:06
Laboratory Results
Total Bilirubin Cancelled 08/13/24 14:06
AST Cancelled 08/13/24 14:06
ALT Cancelled 08/13/24 14:06
Alkaline Phosphatase Cancelled 08/13/24 14:06
Data Reviewed
-
Lab Data: Labs Reviewed by me
Old Records: Reviewed
Impression/Plan
-
Reviewed VS: afebrile SB 55- 65 BP 128/78 --> 100/70
Data
Nl CBC
BUN 64
Cr 1.9 - baseline Cr 1.6
eGFR 27 - basline low 30s
UA consistent with infection.
CXR
1. No radiographic evidence for pneumonia, acute pulmonary edema, or pleural effusion.
2. Mild elevation of the right hemidiaphragm.
3. Mild chronic scarring in the right middle lobe.
4. Severe calcific atherosclerotic plaque in the thoracic and abdominal aorta.
HCT
1. Moderate-sized chronic infarct in the inferomedial left cerebellar hemisphere.
2. Moderate diffuse cerebral and cerebellar volume loss with associated ex vacuo dilatation of the ventricular system.
3. Moderate white matter leukoaraiosis in the frontal lobes.
ASSESSMENT & PLAN
CAUTI
Chronic overactive bladder
Chr indwelling F cath
HX POS Klebsiella in UCx as of March 2024
HX Poly ABx allergy
- UA consistent with infection
- Empiric ertapenem started in the ED for now.
- f/u UCx data.
- ID consult
Associated TME due to CAUTI and AR
- Observe MS with Tx of UTI
- Fall precaution
AR due to UTI
CKD3b
- gentle IVF NS 250 cc only
- Treat CAUIT with ABx
- Trend Cr in AM
Chronic HFrEF
- Stable volume status
- Hold Frusemide 40 daily
- Follow I/Os, daily Wt,
Paroxysmal AF
- Stable.
- Continue [employer] amiodarone and Eliquis.
IRT2DM
- cont. [employer] Lantus
- SSI Low .
- A1C done in January was 7.2%.
Hypothyroidism
- Continue current T4 supplementation.
Trigeminal Neuralgia
- Stable.
- No complaints of pain / headache at present.
- Continue Depakote.
Anemia of Chronic Disease
- Stable. curent Hgb 13 is above the baseline ? hemoconcentrated
- Iron studies done prior were unremarkable.
DVT Px: on Eliquis
Code: Full
IP TLM
[2024-08-13] MEDS: FLUSH (NSS) 1 FLUSH IV (21:24)
[2024-08-14] VITALS (17 sets, daily range): BP systolic 94–168; BP diastolic 47–95; BMI 28.4
[2024-08-14] MEDS: ELIQUIS PO (02:36)
[2024-08-14] MEDS: DEPAKOTE (12 HR RELEASE) 500 MG PO ×2 (02:43→17:59)
[2024-08-14] MEDS: NSS 500 IV (02:47)
[2024-08-14] MEDS: SYNTHROID 125 MCG PO (05:49)
[2024-08-14 06:58] LABS: Blood Urea Nitrogen 55 mg/dl (7-17); Calcium 9.5 mg/dl (8.4-10.2); Carbon Dioxide 29 mmol/L (22-30); Chloride 103 mmol/L (98-107); Estimated Creatinine Clearance 25 ml/min; Glucose 134 mg/dl (70-99); Potassium 4.3 mmol/L (3.5-5.1); Sodium 142 mmol/L (135-145)
[2024-08-14 07:22] LABS: Hematocrit 40.8 % (37.0-47.0); Hemoglobin 13.1 g/dL (12.0-16.0); Mean Corp Hgb Conc. 32.1 g/dL (33.0-37.0); Mean Corpuscular Hgb 29.2 pg (27.0-31.0); Mean Corpuscular Volume 90.9 fL (81.0-99.0); Mean Platelet Volume 11.8 fL (7.4-10.4); Platelet Count 152 10^3/uL (130-400); Red Blood Cell Count 4.49 10^6/uL (4.20-5.40); White Blood Cell Count 8.4 10^3/uL (4.8-10.8)
[2024-08-14 07:38] LABS: Glucose - Point of Care 136 mg/dl (70-99)
[2024-08-14] MEDS: NOVOLOG FLEXPEN-LOW RESISTANCE SC ×2 (07:47→18:01)
[2024-08-14] MEDS: CYMBALTA DELAYED RELEASE 90 MG PO (07:48)
[2024-08-14] MEDS: ASPIR LOW (ENTERIC COATED) 81 MG PO (07:48)
[2024-08-14] MEDS: ELIQUIS 5 MG PO ×2 (07:49→19:36)
[2024-08-14] MEDS: PACERONE 200 MG PO (07:49)
[2024-08-14] MEDS: PROTONIX 40 MG PO (07:49)
[2024-08-14] MEDS: LIPITOR 40 MG PO (07:49)
[2024-08-14 11:03] LABS: Glycohemoglobin (HgbA1c) 7.3 % (4.0-5.6)
--- NOTE | 2024-08-14 11:53 | W.PN.HOSP.TC ---
Today's Communication/Plan
-
see PN
Assessment / Plan
Assessment / Plan
79yo F with PMHx of Afib, CHF, HTN, chronic urinary retention on Tobin, Hx of subdural hemorrhage brought to the hospital with oncern for confusion, similar to prior, ehrn she had UTI. Next day after admission mentation is on the baseline. Tobin
replaced in ED.
A/P:
#CAUTI
tobin replaced
Outpatient urology to follow
Ertapenem started 2/2 multiple allergies. Follow Ucx
#Acute metabolic encephalopathy on admisison
rapidly resolved
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
cont DM diet, accuchecks, insulin SS and basal/bolus regimen
#PAD s/p femoral bypass
#Subdural hemorrhage
#Afib, unspecified
#Seizure d/o
#chronic HFmrEF
#Hypothyroidism
#PASTORA
Cont home meds
check TSH
Seizure precautions
#Vaginal dryness
hold estradiol while inpatient
DVT ppx on Eliquis
Full code
I have spent at least 59min reviewing chart, test results, communication with consultants and direct patient care
Anticipated Discharge: > 48 hours
Subjective/Interval History
-
Date of Service: August 14, 2024
Objective Data
-
Labs:
Laboratory Results
08/14/24 08/14/24
01:13 05:33
WBC Cancelled 8.4
Hgb Cancelled 13.1
Hct Cancelled 40.8
Plt Count Cancelled 152 D
Sodium 142
Potassium 4.3
Chloride 103
Carbon Dioxide 29
BUN 55 H
Creatinine 1.7 H
Glucose 134 H
Calcium 9.5
Vital Signs:
Vital Signs
Temp Pulse Resp BP Pulse Ox
98.0 F 64 17 168/57 92
08/14/24 08:03 08/14/24 08:00 08/14/24 08:00 08/14/24 07:00 08/14/24 08:00
Review of Systems
-
History Source: Patient
All other systems: Reviewed and negative
Physical Exam
-
General: Comfortable
HEENT: Normocephalic
Respiratory: Clear to Auscultation
Cardiac: Irregular Rhythm
GI: Soft
Genito-urinary: Tobin
Musculoskeletal: No Clubbing, No Cyanosis and No Edema
Neuro: Awake, Alert, Oriented and AO x 3
Psych: Calm
[2024-08-14 12:23] LABS: Glucose - Point of Care 155 mg/dl (70-99)
[2024-08-14 12:31] LABS: Magnesium 2.1 mg/dl (1.6-2.3)
[2024-08-14] MEDS: NOVOLOG FLEXPEN-LOW RESISTANCE 1 UNITS SC (12:48)
[2024-08-14 13:02] LABS: TSH 3.62 uIU/ml (0.47-4.68)
[2024-08-14] MEDS: NSS IV (15:21)
--- NOTE | 2024-08-14 16:00 | PTCARENOTE ---
Patient admitted from ED. VSS. Patient blind. Chronic r sided weakness. Patient OOB to chair x 2 assist with walker. Tele monitor in place. Call estrada within reach.
[2024-08-14 16:49] LABS: Glucose - Point of Care 144 mg/dl (70-99)
[2024-08-14 17:04] LABS: Lipase 71 U/L (23-300)
[2024-08-14] MEDS: NEURONTIN 200 MG PO ×2 (17:59→22:37)
[2024-08-14] MEDS: INVANZ 60 MG IV (17:59)
[2024-08-14] MEDS: MIRALAX 17 GRAMS PO (18:00)
[2024-08-14] MEDS: NOVOLOG FLEXPEN 5 UNITS SC (18:02)
[2024-08-14] MEDS: ULTRAM 50 MG PO (20:13)
[2024-08-14 21:29] LABS: Glucose - Point of Care 120 mg/dl (70-99)
[2024-08-14] MEDS: LANTUS 0.1 UNITS SC (22:37)
[2024-08-15] VITALS (8 sets, daily range): BP systolic 98–146; BP diastolic 45–61; PULSE 57–60; O2SAT 93–94; BMI 29.3
[2024-08-15] MEDS: SYNTHROID 125 MCG PO (05:29)
[2024-08-15 08:25] LABS: % Basophils 2.1 % (0-2); % Eosinophils 10.4 % (0-6); % Immature Granulocytes 0.4 % (0-0.5); % Lymphocytes 28.7 % (20.5-51.1); % Monocytes 9.7 % (1.7-9.3); % Neutrophils 48.7 % (42.2-75.2); Absolute Basophils 0.2 10^3/uL (0-0.2); Absolute Eosinophils 0.8 10^3/uL (0-0.7); Absolute Lymphocytes 2.2 10^3/uL (1.2-3.4); Absolute Monocytes 0.7 10^3/uL (0.1-0.6); Absolute Neutrophils 3.7 10^3/uL (1.4-6.5); Hematocrit 36.9 % (37.0-47.0); Hemoglobin 12.3 g/dL (12.0-16.0); Mean Corp Hgb Conc. 33.3 g/dL (33.0-37.0); Mean Corpuscular Hgb 29.4 pg (27.0-31.0); Mean Corpuscular Volume 88.3 fL (81.0-99.0); Mean Platelet Volume 11.7 fL (7.4-10.4); Nucleated Red Blood Cells % 0 %; Platelet Count 206 10^3/uL (130-400); Red Blood Cell Count 4.18 10^6/uL (4.20-5.40); White Blood Cell Count 7.6 10^3/uL (4.8-10.8)
[2024-08-15 08:46] LABS: ALT (SGPT) 17 U/L (0-35); AST (SGOT) 29 U/L (14-36); Albumin 3.6 g/dl (3.5-5.0); Alkaline Phosphatase 64 U/L (38-126); Blood Urea Nitrogen 49 mg/dl (7-17); Calcium 9.4 mg/dl (8.4-10.2); Carbon Dioxide 26 mmol/L (22-30); Chloride 103 mmol/L (98-107); Estimated Creatinine Clearance 26 ml/min; Glucose 115 mg/dl (70-99); Potassium 4.8 mmol/L (3.5-5.1); Sodium 140 mmol/L (135-145); Total Bilirubin 0.4 mg/dl (0.2-1.3); Total Protein 6.5 g/dl (6.3-8.2); eGFR 33.01
[2024-08-15] MEDS: ELIQUIS 5 MG PO ×2 (08:53→19:41)
[2024-08-15] MEDS: VISBIOME 1 CAP PO (08:54)
[2024-08-15] MEDS: ASPIR LOW (ENTERIC COATED) 81 MG PO (08:54)
[2024-08-15] MEDS: CYMBALTA DELAYED RELEASE 90 MG PO (08:54)
[2024-08-15] MEDS: LIPITOR 40 MG PO (08:54)
[2024-08-15] MEDS: PROTONIX 40 MG PO (08:54)
[2024-08-15] MEDS: NEURONTIN 200 MG PO ×3 (08:55→22:15)
[2024-08-15] MEDS: PACERONE 200 MG PO (08:55)
[2024-08-15] MEDS: MIRALAX 17 GRAMS PO ×2 (08:56→19:41)
[2024-08-15 08:57] LABS: Glucose - Point of Care 144 mg/dl (70-99)
[2024-08-15] MEDS: NOVOLOG FLEXPEN 5 UNITS SC ×3 (08:57→16:29)
[2024-08-15] MEDS: NOVOLOG FLEXPEN-LOW RESISTANCE SC ×3 (08:58→16:30)
[2024-08-15 11:42] LABS: Glucose - Point of Care 139 mg/dl (70-99)
--- NOTE | 2024-08-15 12:11 | W.PN.HOSP.TC ---
Today's Communication/Plan
-
pending Ucx and D/C
PT/OT recommended rehab
Assessment / Plan
Assessment / Plan
79yo F with PMHx of Afib, CHF, HTN, chronic urinary retention on Tobin, Hx of subdural hemorrhage brought to the hospital with oncern for confusion, similar to prior, ehrn she had UTI. Next day after admission mentation is on the baseline. Tobin
replaced in ED. FOund significant constipation with LLQ pain
A/P:
#CAUTI
tobin replaced
Outpatient urology to follow
Ertapenem started 2/2 multiple allergies. Follow Ucx
#Acute metabolic encephalopathy on admission
rapidly resolved
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
cont DM diet, accuchecks, insulin SS and basal/bolus regimen
#constipation
laxatives
CT abd/pelvis 2/2 pain
#PAD s/p femoral bypass
#Subdural hemorrhage
#Afib, unspecified
#Seizure d/o
#chronic HFmrEF
#Hypothyroidism
#PASTORA
Cont home meds
check TSH
Seizure precautions
#Vaginal dryness
hold estradiol while inpatient
DVT ppx on Eliquis
Full code
I have spent at least 59min reviewing chart, test results, communication with consultants and direct patient care
Anticipated Discharge: Within 24 hours
Subjective/Interval History
-
Date of Service: August 15, 2024
Objective Data
-
Labs:
Laboratory Results
08/15/24
06:41
WBC 7.6
Hgb 12.3
Hct 36.9 L
Plt Count 206 D
Sodium 140
Potassium 4.8
Chloride 103
Carbon Dioxide 26
BUN 49 H
Creatinine 1.6 H
Glucose 115 H
Calcium 9.4
Total Bilirubin 0.4
AST 29
ALT 17
Alkaline Phosphatase 64
Vital Signs:
Vital Signs
Temp Pulse Resp BP Pulse Ox
97.9 F 53 16 123/45 95
08/15/24 11:55 08/15/24 11:55 08/15/24 11:55 08/15/24 11:55 08/15/24 11:55
I&O
08/14/24 08/15/24 08/16/24
06:59 06:59 06:59
Intake Total 780 / 780
Output Total 1000 / 1000
Balance -220 / -220
Review of Systems
-
History Source: Patient
All other systems: Reviewed and negative
Abdomen/GI: Reports Abdominal Pain (LLQ)
Physical Exam
-
General: No Apparent Distress
Respiratory: Clear to Auscultation
GI: Soft, Nontender and Nondistended
Musculoskeletal: No Clubbing, No Cyanosis and No Edema
Neuro: Awake
Psych: Calm
--- NOTE | 2024-08-15 13:00 | CM ---
Patient seen at bedside with ;
IA completed
Dx: CAUTI, AR on CKD3B, TME
PMH: Afib, CHF, HTN, chronic urinary retention with [place], subdural hemorrhage
brought to the hospital with concern for confusion
Lives at home with in a 2 story house with a stair glide. 2 steps to enter
PLOF: ambulates with walker, wheelchair for longer distances
DME: Wheelchair, 2 walkers, stair glide, shower chair
Has had [facility] in past/[facility] in past
PT rec SNF - options reviewed - referrals to [facility], [facility] & [facility] placed in [facility].
CM will need to obtain insurance auth
PCP: Gloria Allison NP - [facility] - [phone]
Pharmacy: [facility]
PLAN: SNF, pending bed availability. CM will need to obtain ins auth
[2024-08-15] MEDS: FLEET MINERAL OIL ENEMA 133 ML RECTAL (14:33)
[2024-08-15 16:34] LABS: Glucose - Point of Care 131 mg/dl (70-99)
[2024-08-15] MEDS: INVANZ 60 MG IV (18:29)
[2024-08-15] MEDS: DEPAKOTE (12 HR RELEASE) 500 MG PO (18:31)
[2024-08-15] MEDS: SENOKOT-S 1 TABLET PO (19:41)
[2024-08-15] MEDS: LANTUS 0.1 UNITS SC (22:14)
[2024-08-15 22:16] LABS: Glucose - Point of Care 110 mg/dl (70-99)
[2024-08-16 03:08] VITALS: BP 95/60
[2024-08-16] MEDS: TYLENOL 650 MG PO (03:10)
[2024-08-16 05:03] VITALS: BMI 29.2
[2024-08-16] MEDS: SYNTHROID 125 MCG PO (05:27)
[2024-08-16 07:10] VITALS: BP 134/50
[2024-08-16 07:41] LABS: Glucose - Point of Care 123 mg/dl (70-99)
[2024-08-16] MEDS: NOVOLOG FLEXPEN-LOW RESISTANCE SC ×3 (07:56→16:35)
[2024-08-16] MEDS: ASPIR LOW (ENTERIC COATED) 81 MG PO (08:01)
[2024-08-16] MEDS: CYMBALTA DELAYED RELEASE 90 MG PO (08:01)
[2024-08-16] MEDS: SENOKOT-S 1 TABLET PO ×2 (08:01→19:20)
[2024-08-16] MEDS: MIRALAX 17 GRAMS PO ×2 (08:02→19:20)
[2024-08-16] MEDS: VISBIOME 1 CAP PO (08:02)
[2024-08-16] MEDS: LIPITOR 40 MG PO (08:02)
[2024-08-16] MEDS: NOVOLOG FLEXPEN 5 UNITS SC ×3 (08:02→16:36)
[2024-08-16] MEDS: PROTONIX 40 MG PO (08:02)
[2024-08-16] MEDS: PACERONE 200 MG PO (08:02)
[2024-08-16] MEDS: ELIQUIS 5 MG PO ×2 (08:02→19:20)
[2024-08-16] MEDS: NEURONTIN 200 MG PO ×3 (08:02→21:09)
--- NOTE | 2024-08-16 09:05 | W.PN.HOSP.TC ---
Today's Communication/Plan
-
ID cosnsult
Had few small BM - repeat Enema, add Metamucil
Assessment / Plan
Assessment / Plan
79yo F with PMHx of Afib, CHF, HTN, chronic urinary retention on [place], Hx of subdural hemorrhage brought to the hospital with oncern for confusion, similar to prior, ehrn she had UTI. Next day after admission mentation is on the baseline. Lawton
replaced in ED. Found significant constipation with LLQ pain
A/P:
#CAUTI
Lawton replaced
Outpatient urology to follow
Ertapenem since ESBL E.Coli - sensitivity resulted. Plan for 7 - 10 days, will get ID consult for duration
#Acute metabolic encephalopathy on admission
rapidly resolved
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
cont DM diet, accuchecks, insulin SS and basal/bolus regimen
#constipation
laxatives, Enema
CT abd/pelvis 2/2 pain - no acute abnormality except significant constipation
#PAD s/p femoral bypass
#Subdural hemorrhage
#Afib, unspecified
#Seizure d/o
#chronic HFmrEF
#Hypothyroidism
#PASTORA
Cont home meds
check TSH
Seizure precautions
#Vaginal dryness
hold estradiol while inpatient
DVT ppx on Eliquis
Full code
I have spent at least 59min reviewing chart, test results, communication with consultants and direct patient care
Anticipated Discharge: > 48 hours
Subjective/Interval History
-
Date of Service: August 16, 2024
Objective Data
-
Vital Signs:
Vital Signs
Temp Pulse Resp BP Pulse Ox
98.3 F 61 16 134/50 94
08/16/24 07:10 08/16/24 07:10 08/16/24 07:10 08/16/24 07:10 08/16/24 07:10
I&O
08/15/24 08/16/24 08/17/24
06:59 06:59 06:59
Intake Total 780 / 780 840 / 840
Output Total 1000 / 1000 900 / 900
Balance -220 / -220 -60 / -60
Review of Systems
-
History Source: Patient
All other systems: Reviewed and negative
Abdomen/GI: Reports Abdominal Pain
Physical Exam
-
General: No Apparent Distress
HEENT: Normocephalic and Atraumatic
Respiratory: Clear to Auscultation
Cardiac: Regular Rhythm
GI: Soft, Nondistended and Tender (LLQ)
Neuro: Awake, Alert, Oriented and AO x 3
Psych: Calm
[2024-08-16] MEDS: METAMUCIL, KONSYL 1 PACKET PO ×2 (09:23→19:20)
--- NOTE | 2024-08-16 09:51 | CON.ID ---
Consultation
-
Date/Time Consultation Requested: 08/16/24 9:08
Date/Time Consultation Performed: 08/16/24 9:51
Requesting Provider: Dr Robertson
Performing Provider: Dr Elizabeth
Reason for Consultation: ESBL UTI
Chief Complaint / Past History
Chief Complaint
weak and AMS
History of Present Illness
Ms Teixeira is a 79 year old female with prior subdural hemorrhage, CHF, CKD3, chornic tobin, numerous stated drug allergies. Her daugthers thought that she looked weak on wednesday, there was concern for a UTI and she was started on doxycycline however
family reported progressive weakness and progression to confusion prompting them to bring her here. No fevers, chills or flank pain. + dysuria, urgency and frequency. Last documented dose of fosfomycin was 2 years ago at this institution.
Since arrival here she has been afebrile, bp overall stable, wbc initially 7.6 now 7.6, hgb 12.3, plt 206, no left shift on arrival or since, she has chronic intermittent eosinophilia which was present prior to the admission and persisted with AEC
700 on arrival and 800 today, CT a/p without IV or oral contrast no hydronephrosis, calculus or evidence of pyelonephritis, obstruction series - suggestive of constipation, she has had bowel movements here, she has been on ertapenem since arrival
today would be day 4 of rx.
Past History
Additional Past Medical History:
Chronic systolic congestive heart failure, type II non-STEMI myocardial infarction
Type 2 diabetes mellitus
History of acute kidney injury on chronic kidney disease stage III, history of shock related to ischemic colitis and extended spectrum beta-lactamase resistant Klebsiella urinary tract infection
Acute catheter-associated deep venous thrombosis in the right arm (midline placement)
Paroxysmal atrial fibrillation
Anemia of chronic disease
Trigeminal neuralgia
Hypothyroidism
Hyperlipidemia
Overactive bladder
Chronic pain/fibromyalgia/depression
History of subdural hematoma
Coronary artery disease status post stents with left bundle branch block
Previous history of stroke
Obstructive sleep apnea
Essential hypertension
Additional Past Surgical History:
Left shoulder replacement complicated by septic shoulder
L hip replacement
Allergy History:
cephalexin Allergy (Verified 05/02/24 13:29)
Unknown
ciprofloxacin Allergy (Verified 05/02/24 13:29)
Hives
formaldehyde Allergy (Verified 05/02/24 13:29)
Shortness of Breath
Iodinated Contrast Media Allergy (Verified 05/02/24 13:29)
Hives
metoprolol Allergy (Verified 05/02/24 13:29)
Itching
Penicillins Allergy (Verified 05/02/24 13:29)
Unknown
piperacillin [From Zosyn] Allergy (Verified 05/02/24 13:29)
Unknown
pregabalin [From Lyrica] Allergy (Verified 05/02/24 13:29)
Hives
shellfish derived Allergy (Verified 05/02/24 13:29)
Unknown
Glzagxs-DLA-BuY Reductase Inhibitor Allergy (Verified 05/02/24 13:29)
Unknown
Sulfa (Sulfonamide Antibiotics) Allergy (Verified 05/02/24 13:29)
Unknown
tazobactam [From Zosyn] Allergy (Verified 05/02/24 13:29)
Unknown
vancomycin Allergy (Verified 05/02/24 13:29)
Rash
Medications Reviewed: Yes
Social History
Tobacco: Non-Smoker
Alcohol: None
Drug: None
Family History
Family History: Not Pertinent
Review of Systems
Review of Systems
General: Negative Fever or Chills
All systems: All other systems were reviewed and were negative
Vital Signs
Temp Pulse Resp BP Pulse Ox
98.3 F 61 16 134/50 94
08/16/24 07:10 08/16/24 07:10 08/16/24 07:10 08/16/24 07:10 08/16/24 07:10
Physical Exam
Physical Exam
Constitutional: No Acute Distress
Cardiovascular: Regular Rate and S1/S2; Negative Murmur or Rub
Pulmonary: Clear and Symmetric; Negative Wheezes, Rales or Rhonchi
Gastrointestinal: Soft, Non Tender, Non Distended and Normal Bowel Sounds
Genito-Urinary: Suprapubic Tenderness; Negative CVA Tenderness
Musculoskeletal: Other (mild lumbar paraspinal spasm)
Skin: Warm and Dry; Negative Rash or Jaundice
Neurological: Awake and Alert (provides a cogent history)
Lab / Diagnostic Study Results
08/15/24 06:41
08/15/24 06:41
Abs Immat Gran (auto) 0.0 10^3/uL (0-0.05) 08/15/24 06:41
Absolute Neuts (auto) 3.7 10^3/uL (1.4-6.5) 08/15/24 06:41
Absolute Lymphs (auto) 2.2 10^3/uL (1.2-3.4) 08/15/24 06:41
Absolute Monos (auto) 0.7 10^3/uL (0.1-0.6) H 08/15/24 06:41
Absolute Basos (auto) 0.2 10^3/uL (0-0.2) 08/15/24 06:41
Immature Gran % 0.4 % (0-0.5) 08/15/24 06:41
Neutrophils % 48.7 % (42.2-75.2) 08/15/24 06:41
Lymphocytes % 28.7 % (20.5-51.1) 08/15/24 06:41
Monocytes % 9.7 % (1.7-9.3) H 08/15/24 06:41
Eosinophils % 10.4 % (0-6) H 08/15/24 06:41
Basophils % 2.1 % (0-2) H 08/15/24 06:41
Ur Squamous Epith Cells 16-20 /LPF (Few) 08/13/24 13:52
Urine Culture Final 08/16/24-0858
CC: Greater than 100,000 CFU/ML Escherichia coli - ESBL
MDRO
CC: 50,000 CFU/ML Mixed meagan present
Resistance due to extended spectrum beta lactamase.
Deacreased activity may occur with penicillins,
penicillin/inhibitor combinations, cephalosporins, and
monobactams.
Multi drug resistant organism isolated.
Suggest Infectious Disease consult.
Isolation Precautions Required
Organism 1 Escherichia coli - ESBL
1. Escherichia coli - ESBL
M.I.C. RX
--------- ---
Amoxicillin/Potas. Clavulanate 16/8 I
Ampicillin >16 R
Ampicillin/Sulbactam >16/8 R
Aztreonam >16 R
Cefazolin >16 R
Cefepime >16 R
Ceftazidime >16 R
Ceftriaxone >2 R
Ertapenem <=0.5 S
Ciprofloxacin 2 R
Gentamicin >8 R
Meropenem <=1 S
Nitrofurantoin-Urine Only <=32 S
Piperacillin/Tazobactam 32 I
Tetracycline >8 R
Tobramycin >8 R
Trimethoprim/Sulfamethoxazole >2/38 R
Microbiology Results
Micro:
08/13/24 13:52 Urine Culture - Final
Urine Escherichia coli - ESBL
Assessment / Plan
ESBL E coli UTI
Reported allergies penicillin/zosyn (unknown), cephalexin (unknown), ciprofloxacin (hives), sulfa (unknown), vancomycin (rash)
CKD
AMS - resolved
Seizure Disorder - on divalproex
- one time dose of fosfomycin to complete the course
- generally avoid combination of carbapenems and valproic acid derivatives due to decreased levels of valproic acid derivatives and risk of seizures
- would change out tobin prior to discharge
- follow up with urology for tobin exchange at least Q6 weeks
- recommend a daily bowel regimen outpatient - untreated constipation associated with recurrent UTIs
- restart vaginal estradiol on discharge - a preventative rx for recurrent UTIs
- stable for dc from ID perspective
[2024-08-16 11:05] VITALS: BP 154/54
[2024-08-16] MEDS: MONUROL 3 GM PO (11:24)
[2024-08-16] MEDS: FLEET MINERAL OIL ENEMA 133 ML RECTAL (11:24)
--- NOTE | 2024-08-16 12:38 | CM ---
Patient for Lumbar MRI
[facility] accepted - no bed until Sat.
[facility] accepted
[facility] preferred.
will need to obtain insurance auth
PLAN: Discharge when stable, SNF, pending bed availability - Will need to obtain authorization
[2024-08-16 13:07] LABS: Glucose - Point of Care 108 mg/dl (70-99)
--- NOTE | 2024-08-16 13:15 | FALL ---
Description of Fall:
Patient was coming back from MRI and was being assisted from stretcher to chair in the patients room. Patient was being assisted by two RNS and a walker. Patients legs gave out and patient was assisted to the floor. Patient has a fall risk bracelet
in place as well as nonskid socks.
Injuries Noted:
No injuries noted.
Action Taken:
Patient assisted back to chair with manuel lift. made aware. Call estrada within reach.
Name of Provider Notified: Dr. Wong
[2024-08-16 15:05] VITALS: BP 126/57
[2024-08-16] MEDS: ULTRAM 25 MG PO ×2 (15:50→21:57)
[2024-08-16 16:29] LABS: Glucose - Point of Care 86 mg/dl (70-99)
[2024-08-16] MEDS: DEPAKOTE (12 HR RELEASE) 500 MG PO (16:54)
[2024-08-16 19:10] VITALS: BP 136/56
[2024-08-16 21:18] LABS: Glucose - Point of Care 73 mg/dl (70-99)
[2024-08-16] MEDS: LANTUS 0.1 UNITS SC (21:57)
[2024-08-16 23:10] VITALS: BP 107/53
[2024-08-17] VITALS (7 sets, daily range): BP systolic 108–132; BP diastolic 44–65; PULSE 94; O2SAT 94; BMI 29.3
[2024-08-17 04:41] LABS: Glucose - Point of Care 80 mg/dl (70-99)
[2024-08-17] MEDS: SYNTHROID 125 MCG PO (06:02)
[2024-08-17 07:23] LABS: Glucose - Point of Care 138 mg/dl (70-99)
[2024-08-17 07:40] LABS: Blood Urea Nitrogen 47 mg/dl (7-17); Carbon Dioxide 25 mmol/L (22-30); Chloride 104 mmol/L (98-107); Estimated Creatinine Clearance 30 ml/min; Glucose 69 mg/dl (70-99); Potassium 4.8 mmol/L (3.5-5.1); Sodium 138 mmol/L (135-145); eGFR 38.75
[2024-08-17] MEDS: NOVOLOG FLEXPEN-LOW RESISTANCE SC ×2 (07:58→12:45)
[2024-08-17] MEDS: ELIQUIS 5 MG PO ×2 (08:12→20:13)
[2024-08-17] MEDS: CYMBALTA DELAYED RELEASE 90 MG PO (08:12)
[2024-08-17] MEDS: NEURONTIN 200 MG PO ×3 (08:12→21:24)
[2024-08-17] MEDS: SENOKOT-S 1 TABLET PO ×2 (08:12→20:13)
[2024-08-17] MEDS: PROTONIX 40 MG PO (08:12)
[2024-08-17] MEDS: ASPIR LOW (ENTERIC COATED) 81 MG PO (08:12)
[2024-08-17] MEDS: LIPITOR 40 MG PO (08:13)
[2024-08-17] MEDS: PACERONE 200 MG PO (08:13)
[2024-08-17] MEDS: MIRALAX 17 GRAMS PO ×2 (08:13→20:14)
[2024-08-17] MEDS: METAMUCIL, KONSYL 1 PACKET PO ×2 (08:13→20:13)
[2024-08-17] MEDS: VISBIOME 1 CAP PO (08:13)
[2024-08-17] MEDS: NOVOLOG FLEXPEN 5 UNITS SC ×3 (08:15→17:06)
--- NOTE | 2024-08-17 08:33 | W.PN.ID1 ---
Date of Service
Date of Service: August 17, 2024
Today's Communication
completed a course of antibiotics for ESBL UTI
Assessment / Plan
ESBL E coli UTI
Reported allergies penicillin/zosyn (unknown), cephalexin (unknown), ciprofloxacin (hives), sulfa (unknown), vancomycin (rash)
CKD
AMS - resolved
Seizure Disorder - on divalproex
- tolerated fosfomycin yesterday, has completed a course of treatment
- generally avoid combination of carbapenems and valproic acid derivatives due to decreased levels of valproic acid derivatives and risk of seizures
- would change out tobin prior to discharge if not already done
- follow up with urology for tobin exchange at least Q6 weeks
- recommend a daily bowel regimen outpatient - untreated constipation associated with recurrent UTIs
- restart vaginal estradiol on discharge - a preventative rx for recurrent UTIs
- stable for dc from ID perspective
Chief Complaint
-: UTI
Subjective / Review of Systems
afebrile
bp stable
no events overnight
Vital Signs / Physical Exam
Vital Signs
Vital Signs
Temp Pulse Resp BP Pulse Ox
98.4 F 58 17 113/64 93
08/17/24 07:23 08/17/24 07:23 08/17/24 07:23 08/17/24 07:23 08/17/24 07:23
Physical Exam
Constitutional: No Acute Distress and Chronically Ill
Cardiovascular: Regular Rate and S1/S2; Negative Murmur or Rub
Pulmonary: Clear and Symmetric; Negative Wheezes or Rales
Gastrointestinal: Soft, Tender (epigastric/LLQ), Non Distended and Normal Bowel Sounds
Genito-Urinary: Suprapubic Tenderness; Negative CVA Tenderness
Skin: Warm and Dry; Negative Rash or Jaundice
Objective Data
Lab Data
Lab Results
08/15/24 06:41
08/17/24 06:26
Estimated Creat Clear 30 ml/min 08/17/24 06:26
Total Bilirubin 0.4 mg/dl (0.2-1.3) 08/15/24 06:41
AST 29 U/L (14-36) 08/15/24 06:41
ALT 17 U/L (0-35) 08/15/24 06:41
Alkaline Phosphatase 64 U/L (38-126) 08/15/24 06:41
Most recent labs reviewed.
MRI: Report Reviewed (MRI lumbar: DJD of the lumbar spine, moderate spinal stenosis)
Micro Results:
08/13/24 13:52 Urine Culture - Final
Urine Escherichia coli - ESBL
[2024-08-17 12:31] LABS: Glucose - Point of Care 81 mg/dl (70-99)
--- NOTE | 2024-08-17 14:54 | W.PN.HOSP.TC ---
Today's Communication/Plan
-
repeat labs
replace Lawton as per ID and d/c
Assessment / Plan
Assessment / Plan
79yo F with PMHx of Afib, CHF, HTN, chronic urinary retention on Lawton, Hx of subdural hemorrhage brought to the hospital with oncern for confusion, similar to prior, ehrn she had UTI. Next day after admission mentation is on the baseline. Lawton
replaced in ED. Found significant constipation with LLQ pain
A/P:
#CAUTI
Lawton replaced
ESBL UTI E.coli
Outpatient urology to follow
S/P Fosfomycin as per ID
#Acute metabolic encephalopathy on admission
rapidly resolved
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
cont DM diet, accuchecks, insulin SS and basal/bolus regimen
#LLQ tenderness on palpation and on light squeezing of the abdominal fat pad
since pain even on light tough - not concerned for deep intraabd pathology. No redness or collection n abd wall palpation. Furthermore: CT without intraabd pathology and no acute abdominal wall changes, no abscess seen
#constipation
laxatives, Enema
CT abd/pelvis 2/2 pain - no acute abnormality except significant constipation
#PAD s/p femoral bypass
#Subdural hemorrhage
#Afib, unspecified
#Seizure d/o
#chronic HFmrEF
#Hypothyroidism
#PASTORA
Cont home meds
check TSH
Seizure precautions
#Vaginal dryness
hold estradiol while inpatient
DVT ppx on Eliquis
Full code
I have spent at least 59min reviewing chart, test results, communication with consultants and direct patient care
Anticipated Discharge: Within 24 hours
Subjective/Interval History
-
Date of Service: August 17, 2024
Objective Data
-
Labs:
Laboratory Results
08/17/24 08/17/24
06:26 14:39
WBC Pending
Hgb Pending
Hct Pending
Plt Count Pending
Sodium 138 Pending
Potassium 4.8 Pending
Chloride 104 Pending
Carbon Dioxide 25 Pending
BUN 47 H Pending
Creatinine 1.4 H Pending
Glucose 69 L Pending
Calcium 9.0 Pending
Total Bilirubin Pending
AST Pending
ALT Pending
Alkaline Phosphatase Pending
Vital Signs:
Vital Signs
Temp Pulse Resp BP Pulse Ox
98.3 F 81 17 115/60 93
08/17/24 12:01 08/17/24 12:01 08/17/24 12:01 08/17/24 11:00 08/17/24 11:00
I&O
08/16/24 08/17/24 08/18/24
06:59 06:59 06:59
Intake Total 840 / 840 1680 / 1680
Output Total 900 / 900 1700 / 1700
Balance -60 / -60 -20 / -20
Review of Systems
-
History Source: Patient
All other systems: Reviewed and negative
Abdomen/GI: Reports Abdominal Pain
Physical Exam
-
General: No Apparent Distress
HEENT: Normocephalic
Respiratory: Clear to Auscultation
Cardiac: Regular Rhythm
GI: Soft and Other (LLQ tenderness on palpation and on light squeezing of the abdominal fat pad )
Skin: Warm
Neuro: Awake, Alert, Oriented and AO x 3
Psych: Calm
[2024-08-17 15:21] LABS: % Basophils 1.2 % (0-2); % Eosinophils 9.2 % (0-6); % Immature Granulocytes 0.4 % (0-0.5); % Monocytes 6.7 % (1.7-9.3); % Neutrophils 66.5 % (42.2-75.2); Absolute Basophils 0.1 10^3/uL (0-0.2); Absolute Eosinophils 1.1 10^3/uL (0-0.7); Absolute Immature Granulocytes 0.1 10^3/uL (0-0.05); Absolute Monocytes 0.8 10^3/uL (0.1-0.6); Absolute Neutrophils 8.1 10^3/uL (1.4-6.5); Hematocrit 39.4 % (37.0-47.0); Mean Corpuscular Hgb 29.5 pg (27.0-31.0); Mean Corpuscular Volume 89.3 fL (81.0-99.0); Mean Platelet Volume 11.3 fL (7.4-10.4); Nucleated Red Blood Cells % 0 %; Platelet Count 202 10^3/uL (130-400); Red Blood Cell Count 4.41 10^6/uL (4.20-5.40); Red Cell Dist. Width 15.7 % (11.5-14.5); White Blood Cell Count 12.2 10^3/uL (4.8-10.8)
[2024-08-17 15:47] LABS: Procalcitonin < 0.05 ng/ml (0.0-0.25)
[2024-08-17 16:36] LABS: ALT (SGPT) 23 U/L (0-35); AST (SGOT) 35 U/L (14-36); Albumin 3.9 g/dl (3.5-5.0); Alkaline Phosphatase 68 U/L (38-126); Blood Urea Nitrogen 44 mg/dl (7-17); Calcium 9.7 mg/dl (8.4-10.2); Carbon Dioxide 25 mmol/L (22-30); Chloride 102 mmol/L (98-107); Estimated Creatinine Clearance 28 ml/min; Glucose 94 mg/dl (70-99); Potassium 4.5 mmol/L (3.5-5.1); Sodium 136 mmol/L (135-145); Total Bilirubin 0.6 mg/dl (0.2-1.3); Total Protein 7.2 g/dl (6.3-8.2); eGFR 35.67
[2024-08-17 16:42] LABS: Glucose - Point of Care 164 mg/dl (70-99)
[2024-08-17] MEDS: NOVOLOG FLEXPEN-LOW RESISTANCE 1 UNITS SC (17:07)
[2024-08-17] MEDS: DEPAKOTE (12 HR RELEASE) 500 MG PO (17:07)
[2024-08-17] MEDS: ULTRAM 25 MG PO (20:21)
[2024-08-17 20:23] LABS: Depakane < 10.0 ug/ml (50.0-120.0)
[2024-08-17 21:20] LABS: Glucose - Point of Care 85 mg/dl (70-99)
[2024-08-17] MEDS: LANTUS 0.1 UNITS SC (21:24)
[2024-08-18] VITALS (7 sets, daily range): BP systolic 81–144; BP diastolic 41–117; PULSE 65; O2SAT 94; BMI 29.9
[2024-08-18] MEDS: ULTRAM 25 MG PO ×3 (02:46→22:43)
[2024-08-18] MEDS: SYNTHROID 125 MCG PO (05:26)
[2024-08-18 07:34] LABS: Glucose - Point of Care 131 mg/dl (70-99)
[2024-08-18] MEDS: NOVOLOG FLEXPEN-LOW RESISTANCE SC (07:48)
[2024-08-18] MEDS: NOVOLOG FLEXPEN 5 UNITS SC ×3 (07:55→17:57)
[2024-08-18] MEDS: SENOKOT-S 1 TABLET PO (07:55)
[2024-08-18] MEDS: ASPIR LOW (ENTERIC COATED) 81 MG PO (07:55)
[2024-08-18] MEDS: VISBIOME 1 CAP PO (07:55)
[2024-08-18] MEDS: NEURONTIN 200 MG PO ×3 (07:55→22:43)
[2024-08-18] MEDS: ELIQUIS 5 MG PO ×2 (07:55→20:58)
[2024-08-18] MEDS: CYMBALTA DELAYED RELEASE 90 MG PO (07:55)
[2024-08-18] MEDS: LIPITOR 40 MG PO (07:55)
[2024-08-18] MEDS: PACERONE 200 MG PO (07:55)
[2024-08-18] MEDS: MIRALAX 17 GRAMS PO (07:55)
[2024-08-18] MEDS: PROTONIX 40 MG PO (07:56)
[2024-08-18] MEDS: METAMUCIL, KONSYL 1 PACKET PO (07:56)
[2024-08-18 08:26] LABS: % Basophils 1.1 % (0-2); % Eosinophils 10.3 % (0-6); % Immature Granulocytes 0.2 % (0-0.5); % Lymphocytes 15.9 % (20.5-51.1); % Monocytes 8.7 % (1.7-9.3); % Neutrophils 63.8 % (42.2-75.2); Absolute Basophils 0.1 10^3/uL (0-0.2); Absolute Eosinophils 1.2 10^3/uL (0-0.7); Absolute Lymphocytes 1.8 10^3/uL (1.2-3.4); Absolute Neutrophils 7.3 10^3/uL (1.4-6.5); Hematocrit 35.2 % (37.0-47.0); Hemoglobin 11.8 g/dL (12.0-16.0); Mean Corp Hgb Conc. 33.5 g/dL (33.0-37.0); Mean Corpuscular Hgb 29.4 pg (27.0-31.0); Mean Corpuscular Volume 87.6 fL (81.0-99.0); Mean Platelet Volume 11.7 fL (7.4-10.4); Nucleated Red Blood Cells % 0.9 %; Platelet Count 178 10^3/uL (130-400); Red Blood Cell Count 4.02 10^6/uL (4.20-5.40); Red Cell Dist. Width 15.8 % (11.5-14.5); White Blood Cell Count 11.4 10^3/uL (4.8-10.8)
--- NOTE | 2024-08-18 08:36 | W.PN.HOSP.TC ---
Today's Communication/Plan
-
medically stable for d/c - CM informed
Assessment / Plan
Assessment / Plan
79yo F with PMHx of Afib, CHF, HTN, chronic urinary retention on Lawton, Hx of subdural hemorrhage brought to the hospital with oncern for confusion, similar to prior, ehrn she had UTI. Next day after admission mentation is on the baseline. Lawton
replaced in ED. Found significant constipation with LLQ pain. CT abd/pelvis unremarkable for alternative pathology. Completed Abx for ESBL E.coli UTI and Lawton was replaced before discharge as advised by ID. Pain improving with bowel movement. MRI
lumbar: Multilevel degenerative changes of the lumbar spine as detailed, worst at L1-2 where disc and facet disease contribute to moderate spinal canal and neural foraminal stenosis at this level. Prominent disc osteophyte complexes/disc herniations
at T10-11 and T11-12 with ventral spinal cord flattening and probable moderate spinal canal stenosis at both levels. No abnormal cord signal or overt MR findings to support a clinical diagnosis of cauda equina syndrome. None of these can be cause
for recurrent constipation and chronic urinary retention. blood test benign, mild leukocytosis improving off Abx on the day of D/C. procalcitonin neg. Medically stable for d/c
A/P:
#CAUTI
Lawton replaced
ESBL UTI E.coli
Outpatient urology to follow
S/P Fosfomycin as per ID
#Acute metabolic encephalopathy on admission
rapidly resolved
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
cont DM diet, accuchecks, insulin SS and basal/bolus regimen
#LLQ tenderness on palpation and on light squeezing of the abdominal fat pad
since pain even on light tough - not concerned for deep intraabd pathology. No redness or collection n abd wall palpation. Furthermore: CT without intraabd pathology and no acute abdominal wall changes, no abscess seen
#constipation
laxatives, Enema
CT abd/pelvis 2/2 pain - no acute abnormality except significant constipation
#PAD s/p femoral bypass
#Subdural hemorrhage
#Afib, unspecified
#Seizure d/o
#chronic HFmrEF
#Hypothyroidism
#PASTORA
Cont home meds
check TSH
Seizure precautions
#Vaginal dryness
hold estradiol while inpatient
DVT ppx on Eliquis
Full code
I have spent at least 39min reviewing chart, test results, communication with consultants and direct patient care
Anticipated Discharge: Within 24 hours
Subjective/Interval History
-
Date of Service: August 18, 2024
Objective Data
-
Labs:
Laboratory Results
08/18/24
07:13
WBC 11.4 H
Hgb 11.8 L
Hct 35.2 L
Plt Count 178
Vital Signs:
Vital Signs
Temp Pulse Resp BP Pulse Ox
98.3 F 67 17 120/45 93
08/18/24 07:27 08/18/24 07:27 08/18/24 07:27 08/18/24 07:55 08/18/24 07:27
I&O
08/17/24 08/18/24 08/19/24
06:59 06:59 06:59
Intake Total 1680 / 1680 1520 / 1520
Output Total 1700 / 1700 400 / 400
Balance -20 / -20 1120 / 1120
Review of Systems
-
History Source: Patient
All other systems: Reviewed and negative
Physical Exam
-
General: No Apparent Distress
HEENT: Normocephalic
Respiratory: Clear to Auscultation
Cardiac: Regular Rhythm
GI: Soft, Nondistended and Tender (mild LLQ tenderness)
Musculoskeletal: No Clubbing, No Cyanosis and No Edema
Neuro: Awake, Alert, Oriented and AO x 3
Psych: Calm
--- NOTE | 2024-08-18 08:56 | W.DCSUMMARY ---
Discharge Summary
Discharge Data
Date of Admission: 08/13/24
Date of Discharge: 08/18/24
-
Pending Results: No
Hospital Course
79yo F with PMHx of Afib, CHF, HTN, chronic urinary retention on Tobin, Hx of subdural hemorrhage brought to the hospital with oncern for confusion, similar to prior, ehrn she had UTI. Next day after admission mentation is on the baseline. Tobin
replaced in ED. Found significant constipation with LLQ pain. CT abd/pelvis unremarkable for alternative pathology. Completed Abx for ESBL E.coli UTI and Tobin was replaced before discharge as advised by ID. Pain improving with bowel movement. MRI
lumbar: Multilevel degenerative changes of the lumbar spine as detailed, worst at L1-2 where disc and facet disease contribute to moderate spinal canal and neural foraminal stenosis at this level. Prominent disc osteophyte complexes/disc herniations
at T10-11 and T11-12 with ventral spinal cord flattening and probable moderate spinal canal stenosis at both levels. No abnormal cord signal or overt MR findings to support a clinical diagnosis of cauda equina syndrome. None of these can be cause
for recurrent constipation and chronic urinary retention. blood test benign, mild leukocytosis improving off Abx on the day of D/C. procalcitonin neg. Mounjaro alos was stopped as it could potentially cause GI symtops and blood glucose well
controlled in insulin. Lasix dose decreased since BP appropriate and CKD with elevated Cr on admision.
Medically stable for d/c
I have spent at least 39min reviewing chart, test results, communication with consultants and direct patient care
Patient was managed for:
#CAUTI
#Acute metabolic encephalopathy on admission
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
#LLQ tenderness on palpation and on light squeezing of the abdominal fat pad
#constipation
#PAD s/p femoral bypass
#Subdural hemorrhage
#Afib, unspecified
#Seizure d/o
#chronic HFmrEF
#Hypothyroidism
#PASTORA
#Vaginal dryness
Discharge Plan
-
Patient Disposition: Fdc/SNF
Discharge Diagnosis/Procedures: Constipation
Diet: Low Fat and Diabetic, Carb Controlled
Activity: As tolerated
Driving Restrictions: As prior to admission
Referrals:
Byron García MD [Active] - in three to four weeks (replace tobin)
Mitchell Hahn MD [Family Provider] -
Prescriptions:
New
Metamucil Fiber Singles 3.4 gram Powder In Packet
1 packet PO BID Qty: 60 0RF
polyethylene glycol 3350 17 gram Powder In Packet
17 g PO DAILY Qty: 30 0RF
Rx Instructions:
hold the dose if diarrhea or more then 2 BM per day
sennosides-docusate sodium 8.6-50 mg Tablet
1 tab PO BID Qty: 60 0RF
furosemide [Lasix] 20 mg tablet
20 mg PO DAILY Qty: 30 0RF
Continued
atorvastatin [Lipitor] 40 mg Tablet
40 mg PO DAILY
divalproex 500 mg Tablet,Delayed Release (Dr/Ec)
500 mg PO QPM
aspirin 81 mg Tablet,Delayed Release (Dr/Ec)
81 mg PO DAILY
vitamin B complex Tablet
1 tab PO DAILY
folic acid 1 mg Tablet
1 mg PO HS
duloxetine [Cymbalta] 60 mg Capsule,Delayed Release(Dr/Ec)
90 mg PO DAILY
Eliquis 5 mg Tablet
5 mg PO BID Qty: 0 0RF
amiodarone [Pacerone] 200 mg Tablet
200 mg PO DAILY Qty: 0 0RF
pantoprazole 40 mg Tablet,Delayed Release (Dr/Ec)
40 mg PO DAILY Qty: 0 0RF
cholecalciferol (vitamin D3) 50 mcg (2,000 unit) Tablet
50 mcg PO DAILY Qty: 0 0RF
magnesium oxide 400 mg magnesium Tablet
400 mg PO DAILY
ferrous sulfate 325 mg (65 mg iron) Tablet
325 mg PO DAILY
levothyroxine 125 mcg Tablet
125 mcg PO DAILY
gabapentin 100 mg Capsule
200 mg PO TID
estradiol 0.01 % (0.1 mg/gram) Cream
1 applic VAGINAL QWEEK
insulin lispro [Humalog KwikPen Insulin] 100 unit/mL insulin pen
5 unit SC AC
Visbiome 112.5 billion cell Capsule
1 cap PO DAILY
insulin glargine [Lantus Solostar U-100 Insulin] 100 unit/mL (3 mL) Insulin Pen
10 unit SC HS
Discontinued
furosemide 40 mg Tablet
40 mg PO DAILY Qty: 30 0RF
trimethoprim 100 mg Tablet
50 mg PO DAILY
Mounjaro 2.5 mg/0.5 mL Pen Injector
2.5 mg SC TH
Rx Instructions:
for 4 weeks
doxycycline hyclate 100 mg Tablet
100 mg PO BID
Discharge Orders:
Discharge Patient (As Directed); Ordered 08/18/24
Ordered By: Leroy Wong
Discharge Date and Time
Print Language: SLOVAK
--- NOTE | 2024-08-18 11:27 | CM ---
Addendum entered by Emely Dee 08/18/24 16:41:
auth still pending - please call [facility] [phone] tomorrow to see if auth approved to go to [facility].
Original Note:
Patient seen at bedside. Spoke with patient and on bed at [facility] - agreeable
[facility] will accept patient today as per liaison Mercy Mcmanus ([phone])
NPI #: [id number]
Dr. Griffith NPI #: [id number]
Called [facility] [phone] and spoke to Roxane & started authorization
Reference #: [id number]
Faxed Clinicals to [phone]
Await insurance approval
PLAN: [facility], pending authorization approval
[facility]
Report #: [phone]
Fax #: [phone]
[2024-08-18 12:07] LABS: Glucose - Point of Care 162 mg/dl (70-99)
[2024-08-18] MEDS: NOVOLOG FLEXPEN-LOW RESISTANCE 1 UNITS SC ×2 (12:44→17:58)
--- NOTE | 2024-08-18 15:51 | W.PN.ID1 ---
Date of Service
Date of Service: August 18, 2024
Today's Communication
ID service will no longer actively follow this patient please recall for further questions
Assessment / Plan
ESBL E coli UTI
Reported allergies penicillin/zosyn (unknown), cephalexin (unknown), ciprofloxacin (hives), sulfa (unknown), vancomycin (rash)
CKD
AMS - resolved
Seizure Disorder - on divalproex
- tolerated fosfomycin has completed a course of treatment
- tobin exchanged
- follow up with urology for tobin exchange at least Q6 weeks
- recommend a daily bowel regimen outpatient - untreated constipation associated with recurrent UTIs
- restart vaginal estradiol on discharge - a preventative rx for recurrent UTIs
ID service will no longer actively follow this patient please recall for further questions
Chief Complaint
-: UTI
Subjective / Review of Systems
afebrile
bp stable
no new complaints
Vital Signs / Physical Exam
Vital Signs
Vital Signs
Temp Pulse Resp BP Pulse Ox
97.8 F 69 17 133/53 93
08/18/24 15:36 08/18/24 15:36 08/18/24 15:36 08/18/24 15:36 08/18/24 15:36
Physical Exam
Constitutional: No Acute Distress
Cardiovascular: Regular Rate and S1/S2; Negative Murmur or Rub
Pulmonary: Clear and Symmetric; Negative Wheezes or Rales
Gastrointestinal: Soft, Non Tender, Non Distended and Normal Bowel Sounds
Genito-Urinary: Negative Suprapubic Tenderness
Skin: Warm and Dry; Negative Rash or Jaundice
Objective Data
Lab Data
Lab Results
08/18/24 07:13
08/17/24 14:39
Estimated Creat Clear 28 ml/min 08/17/24 14:39
Total Bilirubin 0.6 mg/dl (0.2-1.3) 08/17/24 14:39
AST 35 U/L (14-36) 08/17/24 14:39
ALT 23 U/L (0-35) 08/17/24 14:39
Alkaline Phosphatase 68 U/L (38-126) 08/17/24 14:39
Most recent labs reviewed.
Micro Results:
08/13/24 13:52 Urine Culture - Final
Urine Escherichia coli - ESBL
[2024-08-18 17:43] LABS: Glucose - Point of Care 471 mg/dl (70-99)
[2024-08-18 17:43] LABS: Glucose - Point of Care 187 mg/dl (70-99)
[2024-08-18] MEDS: DEPAKOTE (12 HR RELEASE) 500 MG PO (17:57)
[2024-08-18] MEDS: MIRALAX PO (21:01)
[2024-08-18] MEDS: SENOKOT-S PO (21:01)
[2024-08-18] MEDS: METAMUCIL, KONSYL PO (21:01)
[2024-08-18 21:53] LABS: Glucose - Point of Care 113 mg/dl (70-99)
[2024-08-18] MEDS: LANTUS 0.1 UNITS SC (22:42)
[2024-08-19] MEDS: SYNTHROID 125 MCG PO (05:43)
[2024-08-19 06:00] VITALS: BMI 29.2
[2024-08-19 07:05] VITALS: BP 115/49
[2024-08-19 07:17] LABS: Glucose - Point of Care 87 mg/dl (70-99)
[2024-08-19] MEDS: CYMBALTA DELAYED RELEASE 90 MG PO (08:13)
[2024-08-19] MEDS: VISBIOME 1 CAP PO (08:14)
[2024-08-19] MEDS: NEURONTIN 200 MG PO ×3 (08:14→21:57)
[2024-08-19] MEDS: LIPITOR 40 MG PO (08:14)
[2024-08-19] MEDS: PROTONIX 40 MG PO (08:14)
[2024-08-19] MEDS: SENOKOT-S PO ×2 (08:14→20:55)
[2024-08-19] MEDS: ASPIR LOW (ENTERIC COATED) 81 MG PO (08:14)
[2024-08-19] MEDS: PACERONE 200 MG PO (08:15)
[2024-08-19] MEDS: ELIQUIS 5 MG PO ×2 (08:15→21:56)
[2024-08-19] MEDS: MIRALAX PO ×2 (08:16→20:55)
--- NOTE | 2024-08-19 08:32 | W.PN.HOSP.TC ---
Today's Communication/Plan
-
LLQ abd discomfort continues to improve, remains medically stable for D/C
Assessment / Plan
Assessment / Plan
79yo F with PMHx of Afib, CHF, HTN, chronic urinary retention on Law[place], Hx of subdural hemorrhage brought to the hospital with oncern for confusion, similar to prior, ehrn she had UTI. Next day after admission mentation is on the baseline. Lawton
replaced in ED. Found significant constipation with LLQ pain. CT abd/pelvis unremarkable for alternative pathology. Completed Abx for ESBL E.coli UTI and Lawton was replaced before discharge as advised by ID. Pain improving with bowel movement. MRI
lumbar: Multilevel degenerative changes of the lumbar spine as detailed, worst at L1-2 where disc and facet disease contribute to moderate spinal canal and neural foraminal stenosis at this level. Prominent disc osteophyte complexes/disc herniations
at T10-11 and T11-12 with ventral spinal cord flattening and probable moderate spinal canal stenosis at both levels. No abnormal cord signal or overt MR findings to support a clinical diagnosis of cauda equina syndrome. None of these can be cause
for recurrent constipation and chronic urinary retention. blood test benign, mild leukocytosis improving off Abx on the day of D/C. procalcitonin neg. Medically stable for d/c
A/P:
#CAUTI
Lawton replaced
ESBL UTI E.coli
Outpatient urology to follow
S/P Fosfomycin as per ID
#Acute metabolic encephalopathy on admission
rapidly resolved
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
cont DM diet, accuchecks, insulin SS and basal/bolus regimen
#LLQ tenderness on palpation and on light squeezing of the abdominal fat pad
since pain even on light tough - not concerned for deep intraabd pathology. No redness or collection n abd wall palpation. Furthermore: CT without intraabd pathology and no acute abdominal wall changes, no abscess seen
#constipation
laxatives, Enema
CT abd/pelvis 2/2 pain - no acute abnormality except significant constipation
#PAD s/p femoral bypass
#Subdural hemorrhage
#Afib, unspecified
#Seizure d/o
#chronic HFmrEF
#Hypothyroidism
#PASTORA
Cont home meds
check TSH
Seizure precautions
#Vaginal dryness
hold estradiol while inpatient
DVT ppx on Eliquis
Full code
I have spent at least 39min reviewing chart, test results, communication with consultants and direct patient care
Anticipated Discharge: Within 24 hours
Subjective/Interval History
-
Date of Service: August 19, 2024
Objective Data
-
Vital Signs:
Vital Signs
Temp Pulse Resp BP Pulse Ox
98.1 F 71 16 115/49 91
08/19/24 07:05 08/19/24 08:15 08/19/24 07:05 08/19/24 08:15 08/19/24 07:05
I&O
08/18/24 08/19/24 08/20/24
06:59 06:59 06:59
Intake Total 1520 / 1520 1140 / 1140
Output Total 400 / 400 1150 / 1150
Balance 1120 / 1120 -10 / -10
Review of Systems
-
History Source: Patient
All other systems: Reviewed and negative
Physical Exam
-
General: No Apparent Distress
Neuro: Awake, Alert, Oriented and AO x 3
Psych: Calm
[2024-08-19] MEDS: NOVOLOG FLEXPEN-LOW RESISTANCE SC ×3 (08:36→17:13)
[2024-08-19 08:51] LABS: Glucose - Point of Care 92 mg/dl (70-99)
[2024-08-19] MEDS: NOVOLOG FLEXPEN 5 UNITS SC ×2 (10:15→13:40)
[2024-08-19] MEDS: METAMUCIL, KONSYL 1 PACKET PO (10:15)
[2024-08-19 11:41] LABS: Glucose - Point of Care 132 mg/dl (70-99)
[2024-08-19 15:05] VITALS: BP 119/82
[2024-08-19 17:06] LABS: Glucose - Point of Care 99 mg/dl (70-99)
[2024-08-19] MEDS: NOVOLOG FLEXPEN SC (17:23)
[2024-08-19] MEDS: DEPAKOTE (12 HR RELEASE) 500 MG PO (17:23)
[2024-08-19] MEDS: METAMUCIL, KONSYL PO (20:55)
[2024-08-19 21:54] LABS: Glucose - Point of Care 231 mg/dl (70-99)
[2024-08-19] MEDS: LANTUS 0.1 UNITS SC (21:57)
[2024-08-19] MEDS: ULTRAM 25 MG PO (21:59)
[2024-08-19 23:09] VITALS: BP 133/52
[2024-08-19] MEDS: TYLENOL 650 MG PO (23:43)
[2024-08-20] MEDS: SYNTHROID 125 MCG PO (05:54)
[2024-08-20] MEDS: ULTRAM 25 MG PO (05:55)
[2024-08-20 06:00] VITALS: BMI 29.1
[2024-08-20 07:06] VITALS: BP 113/45
[2024-08-20 07:12] LABS: Glucose - Point of Care 77 mg/dl (70-99)
--- NOTE | 2024-08-20 08:32 | CM ---
Addendum entered by Pricila Shafer 08/20/24 12:24:
CM received call from [facility].
She reached out to [facility] for [facility] Auth- still pending review by Taffy Puller at this time.
Original Note:
CM reviewed chart. Insurance auth remains pending for SNF placement at [facility].
CM/SW will continue to follow to ensure a safe and timely discharge.
--- NOTE | 2024-08-20 08:55 | W.PN.HOSP.TC ---
Today's Communication/Plan
-
CT cervical spine
flexeryl x3 days
Await for Auth for rehab
Stop Tramadol as abd pain mostly resolved
Assessment / Plan
Assessment / Plan
79yo F with PMHx of Afib, CHF, HTN, chronic urinary retention on Lawton, Hx of subdural hemorrhage brought to the hospital with oncern for confusion, similar to prior, ehrn she had UTI. Next day after admission mentation is on the baseline. Lawton
replaced in ED. Found significant constipation with LLQ pain. CT abd/pelvis unremarkable for alternative pathology. Completed Abx for ESBL E.coli UTI and Lawton was replaced before discharge as advised by ID. Pain improving with bowel movement. MRI
lumbar: Multilevel degenerative changes of the lumbar spine as detailed, worst at L1-2 where disc and facet disease contribute to moderate spinal canal and neural foraminal stenosis at this level. Prominent disc osteophyte complexes/disc herniations
at T10-11 and T11-12 with ventral spinal cord flattening and probable moderate spinal canal stenosis at both levels. No abnormal cord signal or overt MR findings to support a clinical diagnosis of cauda equina syndrome. None of these can be cause
for recurrent constipation and chronic urinary retention. blood test benign, mild leukocytosis improving off Abx on the day of D/C. procalcitonin neg. Medically stable for d/c
A/P:
#L neck pain
s/p fall couple of days ago, now developed new L neck pain
CT cervical spine, but suspect muscle strain
start Flexeril for 3 days
#CAUTI
Lawton replaced
ESBL UTI E.coli
Outpatient urology to follow
S/P Fosfomycin as per ID
#Acute metabolic encephalopathy on admission
rapidly resolved
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
cont DM diet, accuchecks, insulin SS and basal/bolus regimen
#LLQ tenderness on palpation and on light squeezing of the abdominal fat pad
since pain even on light tough - not concerned for deep intraabd pathology. No redness or collection n abd wall palpation. Furthermore: CT without intraabd pathology and no acute abdominal wall changes, no abscess seen
#constipation
laxatives, Enema
CT abd/pelvis 2/2 pain - no acute abnormality except significant constipation
#PAD s/p femoral bypass
#Subdural hemorrhage
#Afib, unspecified
#Seizure d/o
#chronic HFmrEF
#Hypothyroidism
#PASTORA
Cont home meds
check TSH
Seizure precautions
#Vaginal dryness
hold estradiol while inpatient
DVT ppx on Eliquis
Full code
I have spent at least 39min reviewing chart, test results, communication with consultants and direct patient care
Anticipated Discharge: Within 24 hours
Subjective/Interval History
-
Date of Service: August 20, 2024
Objective Data
-
Vital Signs:
Vital Signs
Temp Pulse Resp BP Pulse Ox
98.0 F 58 18 113/45 97
08/20/24 07:06 08/20/24 07:06 08/20/24 07:06 08/20/24 07:06 08/20/24 07:06
I&O
08/19/24 08/20/24 08/21/24
06:59 06:59 06:59
Intake Total 1140 / 1140 1660 / 1660
Output Total 1150 / 1150 1075 / 1075
Balance -10 / -10 585 / 585
Review of Systems
-
History Source: Patient
All other systems: Reviewed and negative
Musculoskeletal: Reports Other (L neck pain)
Physical Exam
-
General: No Apparent Distress
HEENT: Normocephalic
Respiratory: Clear to Auscultation
GI: Soft, Nontender and Nondistended
Musculoskeletal: Other (cannot turn head 2/2 pain in the neck)
Neuro: Awake, Alert, Oriented and AO x 3
[2024-08-20] MEDS: NOVOLOG FLEXPEN-LOW RESISTANCE SC ×2 (09:06→11:30)
[2024-08-20] MEDS: NEURONTIN 200 MG PO ×3 (09:11→22:11)
[2024-08-20] MEDS: CYMBALTA DELAYED RELEASE 90 MG PO (09:11)
[2024-08-20] MEDS: LIPITOR 40 MG PO (09:11)
[2024-08-20] MEDS: SENOKOT-S 1 TABLET PO (09:11)
[2024-08-20] MEDS: PROTONIX 40 MG PO (09:11)
[2024-08-20] MEDS: VISBIOME 1 CAP PO (09:11)
[2024-08-20] MEDS: PACERONE 200 MG PO (09:11)
[2024-08-20] MEDS: ASPIR LOW (ENTERIC COATED) 81 MG PO (09:12)
[2024-08-20] MEDS: ELIQUIS 5 MG PO ×2 (09:12→21:31)
[2024-08-20] MEDS: NOVOLOG FLEXPEN 5 UNITS SC ×2 (09:12→17:30)
[2024-08-20] MEDS: METAMUCIL, KONSYL 1 PACKET PO (09:12)
[2024-08-20] MEDS: MIRALAX PO ×2 (09:13→21:24)
[2024-08-20] MEDS: LIDOCAINE 4% PATCH 1 PATCH TOPICAL (10:28)
[2024-08-20 11:15] LABS: Glucose - Point of Care 80 mg/dl (70-99)
[2024-08-20 15:15] VITALS: BP 137/59
[2024-08-20] MEDS: NOVOLOG FLEXPEN SC (15:40)
[2024-08-20] MEDS: FLEXERIL 5 MG PO ×2 (16:00→22:11)
[2024-08-20 17:11] LABS: Glucose - Point of Care 191 mg/dl (70-99)
[2024-08-20] MEDS: NOVOLOG FLEXPEN-LOW RESISTANCE 2 UNITS SC (17:30)
[2024-08-20] MEDS: DEPAKOTE (12 HR RELEASE) 500 MG PO (17:59)
[2024-08-20] MEDS: METAMUCIL, KONSYL PO (21:24)
[2024-08-20] MEDS: SENOKOT-S PO (21:24)
[2024-08-20 22:15] LABS: Glucose - Point of Care 149 mg/dl (70-99)
[2024-08-20] MEDS: LANTUS 0.1 UNITS SC (23:04)
[2024-08-20 23:13] VITALS: BP 118/51
[2024-08-21] MEDS: SYNTHROID 125 MCG PO (05:17)
[2024-08-21 05:33] LABS: Glucose - Point of Care 163 mg/dl (70-99)
[2024-08-21 05:42] VITALS: BMI 29.5
[2024-08-21 07:10] VITALS: BP 129/59
[2024-08-21 07:46] LABS: Glucose - Point of Care 130 mg/dl (70-99)
[2024-08-21] MEDS: FLEXERIL 5 MG PO ×3 (09:17→22:31)
[2024-08-21] MEDS: PACERONE 200 MG PO (09:17)
[2024-08-21] MEDS: CYMBALTA DELAYED RELEASE 90 MG PO (09:18)
[2024-08-21] MEDS: LIPITOR 40 MG PO (09:18)
[2024-08-21] MEDS: VISBIOME 1 CAP PO (09:18)
[2024-08-21] MEDS: NEURONTIN 200 MG PO ×3 (09:18→22:31)
[2024-08-21] MEDS: METAMUCIL, KONSYL 1 PACKET PO (09:19)
[2024-08-21] MEDS: ELIQUIS 5 MG PO ×2 (09:19→20:42)
[2024-08-21] MEDS: PROTONIX 40 MG PO (09:19)
[2024-08-21] MEDS: LIDOCAINE 4% PATCH 1 PATCH TOPICAL (09:19)
[2024-08-21] MEDS: ASPIR LOW (ENTERIC COATED) 81 MG PO (09:19)
[2024-08-21] MEDS: NOVOLOG FLEXPEN-LOW RESISTANCE SC ×3 (09:20→17:28)
[2024-08-21] MEDS: NOVOLOG FLEXPEN 5 UNITS SC ×2 (09:20→17:28)
[2024-08-21] MEDS: MIRALAX PO ×2 (09:33→20:42)
[2024-08-21] MEDS: SENOKOT-S PO ×2 (09:33→20:43)
--- NOTE | 2024-08-21 11:09 | CM ---
Addendum entered by Emely Dee 08/21/24 16:46:
Call back from Minda patient's daughter
She called [employer] # and they stated to fax over clinicals to the Appeal
They stated to use this Reference # [id number]
CM faxed over clinicals to [employer] track appeal #
Addendum entered by Emely Dee 08/21/24 16:08:
Spoke with Kedar at the insurance [employer] [phone] - she stated the determination of Peer to Peer was documented and it was denied.
Family will need to appeal - Called daughter Minda FALCON who was with her dad & gave her all information & she states she will call today and appeal for SNF.
[employer] #[phone]
Fax #:[phone]
The AUTH ID # to use when family appeals is: [id number]
Called Mercy Mcmanus liaison of [facility] and updated.
Addendum entered by Emely Dee 08/21/24 14:56:
Per Dr. Yu who did the P2P with insurance medical staff manager - SNF was denied.
Stella Wilkinson to get the expedited member appeal # to Dr. yu
Addendum entered by Emely Dee 08/21/24 12:04:
Call from [facility] P2P requested today by 3pm - financial sales advisor to call [phone] Yu & hospitalist - tt PT/OT as they will need to see patient - last PT note 08/17, last OT note 08/18
PT/OT will eval patient today & enter notes quoc
Original Note:
CM called [facility] and spoke with Tory ([phone]) regarding Reference #: [id number]
Stated that still awaiting decision as it is with director of home health services.
Stated will call if they need anything additional
Notified Mercy Mcmanus at [facility] as well as patient/spouse.
PLAN: [facility], pending auth approval
[facility]
Report #: [phone]
Fax #: [phone]
[2024-08-21 11:17] LABS: Glucose - Point of Care 59 mg/dl (70-99)
--- NOTE | 2024-08-21 11:19 | W.PN.HOSP.TC ---
Today's Communication/Plan
-
Medically stable for d/c, remains on baseline without complains today, Starr work for neck pain
Assessment / Plan
Assessment / Plan
79yo F with PMHx of Afib, CHF, HTN, chronic urinary retention on Lawton, Hx of subdural hemorrhage brought to the hospital with oncern for confusion, similar to prior, ehrn she had UTI. Next day after admission mentation is on the baseline. Lawton
replaced in ED. Found significant constipation with LLQ pain. CT abd/pelvis unremarkable for alternative pathology. Completed Abx for ESBL E.coli UTI and Lawton was replaced before discharge as advised by ID. Pain improving with bowel movement. MRI
lumbar: Multilevel degenerative changes of the lumbar spine as detailed, worst at L1-2 where disc and facet disease contribute to moderate spinal canal and neural foraminal stenosis at this level. Prominent disc osteophyte complexes/disc herniations
at T10-11 and T11-12 with ventral spinal cord flattening and probable moderate spinal canal stenosis at both levels. No abnormal cord signal or overt MR findings to support a clinical diagnosis of cauda equina syndrome. None of these can be cause
for recurrent constipation and chronic urinary retention. blood test benign, mild leukocytosis improving off Abx on the day of D/C. procalcitonin neg. Medically stable for d/c
A/P:
#L neck pain
s/p fall couple of days ago, now developed new L neck pain
CT cervical spine without acute abnormality
start Flexeril for 3 days
#CAUTI
Lawton replaced
ESBL UTI E.coli
Outpatient urology to follow
S/P Fosfomycin as per ID
#Acute metabolic encephalopathy on admission
rapidly resolved
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
cont DM diet, accuchecks, insulin SS and basal/bolus regimen
#LLQ tenderness on palpation and on light squeezing of the abdominal fat pad
since pain even on light tough - not concerned for deep intra-abd pathology. No redness or collection n abd wall palpation. Furthermore: CT without intraabd pathology and no acute abdominal wall changes, no abscess seen
#constipation
laxatives, Enema
CT abd/pelvis 2/2 pain - no acute abnormality except significant constipation
#PAD s/p femoral bypass
#Subdural hemorrhage
#Afib, unspecified
#Seizure d/o
#chronic HFmrEF
#Hypothyroidism
#PASTORA
Cont home meds
check TSH
Seizure precautions
#Vaginal dryness
hold estradiol while inpatient
DVT ppx on Eliquis
Full code
I have spent at least 39min reviewing chart, test results, communication with consultants and direct patient care
Anticipated Discharge: Within 24 hours
Subjective/Interval History
-
Date of Service: August 21, 2024
Objective Data
-
Vital Signs:
Vital Signs
Temp Pulse Resp BP Pulse Ox
98.6 F 73 16 129/59 96
08/21/24 07:10 08/21/24 09:17 08/21/24 07:10 08/21/24 09:17 08/21/24 07:10
I&O
08/20/24 08/21/24 08/22/24
06:59 06:59 06:59
Intake Total 1660 / 1660 1620 / 1620
Output Total 1075 / 1075 1300 / 1300
Balance 585 / 585 320 / 320
Review of Systems
-
History Source: Patient
All other systems: Reviewed and negative
Physical Exam
-
General: Comfortable
HEENT: Normocephalic
Neuro: Awake, Alert, Oriented and AO x 3
Psych: Calm
[2024-08-21 11:43] LABS: Glucose - Point of Care 154 mg/dl (70-99)
[2024-08-21 12:10] VITALS: BP 113/38; BP 70/50; PULSE 66; O2SAT 95
[2024-08-21 12:40] LABS: Glucose - Point of Care 141 mg/dl (70-99)
[2024-08-21 13:45] VITALS: BP 113/38; BP 70/50; PULSE 67; O2SAT 95
[2024-08-21] MEDS: NOVOLOG FLEXPEN SC (15:28)
[2024-08-21 15:44] VITALS: BP 132/54
[2024-08-21 16:38] LABS: Glucose - Point of Care 136 mg/dl (70-99)
[2024-08-21] MEDS: DEPAKOTE (12 HR RELEASE) 500 MG PO (17:28)
[2024-08-21] MEDS: METAMUCIL, KONSYL PO (20:42)
[2024-08-21 22:45] LABS: Glucose - Point of Care 72 mg/dl (70-99)
[2024-08-21 22:58] LABS: Glucose - Point of Care 74 mg/dl (70-99)
[2024-08-21] MEDS: LANTUS SC (23:15)
[2024-08-21 23:41] VITALS: BP 125/52
[2024-08-22 00:15] LABS: Glucose - Point of Care 84 mg/dl (70-99)
[2024-08-22 03:06] LABS: Glucose - Point of Care 86 mg/dl (70-99)
--- NOTE | 2024-08-22 03:08 | PTCARENOTE ---
PARKER Shetty held per Louis GARCIA as blood sugar at 2241 72; pt. given 4 oz apple juice and rechecked 15 min later with results of 74 - no S&S hypoglycemia . Follow up blood sugars 84 at 0010 & 86 @ 0304.
[2024-08-22 04:47] VITALS: BMI 29.5
[2024-08-22] MEDS: SYNTHROID 125 MCG PO (05:17)
[2024-08-22 07:29] VITALS: BP 117/47
[2024-08-22 07:29] LABS: Glucose - Point of Care 89 mg/dl (70-99)
[2024-08-22] MEDS: NOVOLOG FLEXPEN-LOW RESISTANCE SC (07:32)
--- NOTE | 2024-08-22 07:36 | W.PN.HOSP.TC ---
Today's Communication/Plan
-
CM for rehab
repeat labs in AM
Assessment / Plan
Assessment / Plan
79yo F with PMHx of Afib, CHF, HTN, chronic urinary retention on Lawton, Hx of subdural hemorrhage brought to the hospital with oncern for confusion, similar to prior, ehrn she had UTI. Next day after admission mentation is on the baseline. Lawton
replaced in ED. Found significant constipation with LLQ pain. CT abd/pelvis unremarkable for alternative pathology. Completed Abx for ESBL E.coli UTI and Lawton was replaced before discharge as advised by ID. Pain improving with bowel movement. MRI
lumbar: Multilevel degenerative changes of the lumbar spine as detailed, worst at L1-2 where disc and facet disease contribute to moderate spinal canal and neural foraminal stenosis at this level. Prominent disc osteophyte complexes/disc herniations
at T10-11 and T11-12 with ventral spinal cord flattening and probable moderate spinal canal stenosis at both levels. No abnormal cord signal or overt MR findings to support a clinical diagnosis of cauda equina syndrome. None of these can be cause
for recurrent constipation and chronic urinary retention. blood test benign, mild leukocytosis improving, procalcitonin neg. Medically stable for d/c, however declined rehab by insurance. Unsafe for home since needs max assistance of 2 for ambulation
A/P:
#Ambulatory dysfunction
PT/OT recommended rehab, however insurance declined auth, initial [id number] review on 08/21/24 - declined
Previously patient was living with her at home, ambulating with walker and minimal assistance from her , used WC for long distances, now needs maximum assistance of 2 for ambulation
Unsafe for d/c back home- CM for rehab, patient appeal
#L neck pain
s/p fall couple of days ago, now developed new L neck pain
CT cervical spine without acute abnormality
start Flexeril for 3 days
#CAUTI
Lawton replaced
ESBL UTI E.coli
Outpatient urology to follow
S/P Fosfomycin as per ID
#Mild leukocytosis
repeated infectious w/u neg
completed Abx as per ID advise
improved off Abx
#Acute metabolic encephalopathy on admission
rapidly resolved
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
cont DM diet, accuchecks, insulin SS and basal/bolus regimen
#LLQ tenderness on palpation and on light squeezing of the abdominal fat pad
since pain even on light tough - not concerned for deep intra-abd pathology. No redness or collection n abd wall palpation. Furthermore: CT without intraabd pathology and no acute abdominal wall changes, no abscess seen
#constipation
laxatives, Enema
CT abd/pelvis 2/2 pain - no acute abnormality except significant constipation
#PAD s/p femoral bypass
#Subdural hemorrhage
#Afib, unspecified
#Seizure d/o
#chronic HFmrEF
#Hypothyroidism
#PASTORA
Cont home meds
check TSH
Seizure precautions
#Vaginal dryness
hold estradiol while inpatient
DVT ppx on Eliquis
Full code
I have spent at least 39min reviewing chart, test results, communication with consultants and direct patient care
Anticipated Discharge: Within 24 hours
Subjective/Interval History
-
Date of Service: August 22, 2024
Objective Data
-
Vital Signs:
Vital Signs
Temp Pulse Resp BP Pulse Ox
98.1 F 69 17 117/47 95
08/22/24 07:29 08/22/24 07:29 08/22/24 07:29 08/22/24 07:29 08/22/24 07:29
I&O
08/21/24 08/22/24 08/23/24
06:59 06:59 06:59
Intake Total 1620 / 1620 240 / 240
Output Total 1300 / 1300 1250 / 1250
Balance 320 / 320 -1010 / -1010
Review of Systems
-
History Source: Patient
All other systems: Reviewed and negative
Physical Exam
-
General: No Apparent Distress
Neuro: Awake, Alert, Oriented and AO x 3
Psych: Calm
[2024-08-22] MEDS: NEURONTIN 200 MG PO ×3 (09:39→21:48)
[2024-08-22] MEDS: LIPITOR 40 MG PO (09:39)
[2024-08-22] MEDS: LASIX 20 MG PO (09:39)
[2024-08-22] MEDS: LIDOCAINE 4% PATCH 1 PATCH TOPICAL (09:39)
[2024-08-22] MEDS: VISBIOME 1 CAP PO (09:39)
[2024-08-22] MEDS: PROTONIX 40 MG PO (09:39)
[2024-08-22] MEDS: ELIQUIS 5 MG PO ×2 (09:39→21:45)
[2024-08-22] MEDS: ASPIR LOW (ENTERIC COATED) 81 MG PO (09:40)
[2024-08-22] MEDS: PACERONE 200 MG PO (09:40)
[2024-08-22] MEDS: FLEXERIL 5 MG PO ×3 (09:40→21:45)
[2024-08-22] MEDS: CYMBALTA DELAYED RELEASE 90 MG PO (09:40)
[2024-08-22] MEDS: NOVOLOG FLEXPEN 5 UNITS SC ×3 (09:41→17:11)
[2024-08-22] MEDS: MIRALAX 17 GRAMS PO (09:43)
[2024-08-22] MEDS: SENOKOT-S PO ×2 (09:43→21:44)
[2024-08-22] MEDS: METAMUCIL, KONSYL PO ×2 (09:43→21:44)
[2024-08-22 12:04] LABS: Glucose - Point of Care 203 mg/dl (70-99)
--- NOTE | 2024-08-22 12:33 | CM ---
Addendum entered by Emely Dee 08/22/24 12:46:
Updated patient/spouse.
Original Note:
Spoke with Tammi ([phone]) with the appeal intake team/department
She stated she received all clinical's that CM faxed last evening.
She states still processing the appeal and there is no closing letter yet which gives the determination of the appeal.
Tammi Myers will keep track of this appeal and call CM once a determination has been reached.
PLAN: Await appeal determination for [facility]
[2024-08-22] MEDS: NOVOLOG FLEXPEN-LOW RESISTANCE 2 UNITS SC ×2 (12:46→17:11)
[2024-08-22 15:39] VITALS: BP 127/43
[2024-08-22] MEDS: DEPAKOTE (12 HR RELEASE) 500 MG PO (17:05)
[2024-08-22 17:11] LABS: Glucose - Point of Care 231 mg/dl (70-99)
[2024-08-22 21:41] LABS: Glucose - Point of Care 172 mg/dl (70-99)
[2024-08-22] MEDS: MIRALAX PO (21:44)
[2024-08-22] MEDS: LANTUS 0.1 UNITS SC (22:03)
[2024-08-22 23:10] VITALS: BP 103/45
[2024-08-23 05:29] VITALS: BMI 29.9
[2024-08-23] MEDS: SYNTHROID 125 MCG PO (05:30)
[2024-08-23 06:41] LABS: % Basophils 1.5 % (0-2); % Immature Granulocytes 0.4 % (0-0.5); % Lymphocytes 22.2 % (20.5-51.1); % Monocytes 8.2 % (1.7-9.3); % Neutrophils 50.7 % (42.2-75.2); Absolute Basophils 0.1 10^3/uL (0-0.2); Absolute Eosinophils 1.4 10^3/uL (0-0.7); Absolute Lymphocytes 1.8 10^3/uL (1.2-3.4); Absolute Monocytes 0.7 10^3/uL (0.1-0.6); Absolute Neutrophils 4.2 10^3/uL (1.4-6.5); Hematocrit 33.8 % (37.0-47.0); Hemoglobin 11.1 g/dL (12.0-16.0); Mean Corp Hgb Conc. 32.8 g/dL (33.0-37.0); Mean Corpuscular Hgb 29.4 pg (27.0-31.0); Mean Corpuscular Volume 89.4 fL (81.0-99.0); Mean Platelet Volume 11.1 fL (7.4-10.4); Nucleated Red Blood Cells % 0 %; Platelet Count 178 10^3/uL (130-400); Red Blood Cell Count 3.78 10^6/uL (4.20-5.40); Red Cell Dist. Width 15.3 % (11.5-14.5); White Blood Cell Count 8.2 10^3/uL (4.8-10.8)
[2024-08-23 07:01] LABS: ALT (SGPT) 17 U/L (0-35); AST (SGOT) 24 U/L (14-36); Albumin 3.2 g/dl (3.5-5.0); Alkaline Phosphatase 109 U/L (38-126); Blood Urea Nitrogen 36 mg/dl (7-17); Carbon Dioxide 29 mmol/L (22-30); Chloride 102 mmol/L (98-107); Estimated Creatinine Clearance 33 ml/min; Glucose 134 mg/dl (70-99); Potassium 4.5 mmol/L (3.5-5.1); Sodium 140 mmol/L (135-145); Total Bilirubin 0.3 mg/dl (0.2-1.3); Total Protein 5.9 g/dl (6.3-8.2); eGFR 42.35
[2024-08-23 07:10] VITALS: BP 128/54
[2024-08-23 07:53] LABS: Glucose - Point of Care 117 mg/dl (70-99)
[2024-08-23] MEDS: NOVOLOG FLEXPEN-LOW RESISTANCE SC ×3 (07:53→16:34)
[2024-08-23] MEDS: ELIQUIS 5 MG PO ×2 (09:18→20:39)
[2024-08-23] MEDS: ASPIR LOW (ENTERIC COATED) 81 MG PO (09:18)
[2024-08-23] MEDS: NEURONTIN 200 MG PO ×3 (09:18→22:24)
[2024-08-23] MEDS: FLEXERIL 5 MG PO ×2 (09:18→21:58)
[2024-08-23] MEDS: LIDOCAINE 4% PATCH 1 PATCH TOPICAL (09:18)
[2024-08-23] MEDS: LASIX 20 MG PO (09:19)
[2024-08-23] MEDS: PROTONIX 40 MG PO (09:19)
[2024-08-23] MEDS: PACERONE 200 MG PO (09:19)
[2024-08-23] MEDS: VISBIOME 1 CAP PO (09:19)
[2024-08-23] MEDS: CYMBALTA DELAYED RELEASE 90 MG PO (09:19)
[2024-08-23] MEDS: LIPITOR 40 MG PO (09:20)
[2024-08-23] MEDS: NOVOLOG FLEXPEN 5 UNITS SC ×2 (09:20→17:21)
[2024-08-23] MEDS: MIRALAX PO ×2 (09:36→20:39)
[2024-08-23] MEDS: METAMUCIL, KONSYL PO ×2 (09:36→20:39)
[2024-08-23] MEDS: SENOKOT-S PO (09:36)
[2024-08-23 09:39] VITALS: BP 134/55; PULSE 69; O2SAT 97
[2024-08-23 09:42] VITALS: BP 134/55; PULSE 65
--- NOTE | 2024-08-23 11:00 | CM ---
Addendum entered by Emely Dee 08/23/24 16:38:
Per Mercy bhatia, bed available tomorrow at [facility] - prefer a 2pm tranport time (notified Plating Operator)
transportation forms on chart.
IMM explained & signed.
Updated daughter Minda
Original Note:
Received call from Toma Stockton from [facility] ([phone])
States patient is approved for SNF - Authorization Approval #: [id number]
Start date 08/22/24
NRD 08/25/24
Business Services Director is Debra Devries - Fax updates to: [phone]
Called Mercy Yonathan bhatia from [facility] with all information, she will check if she has a bed today or tomorrow & will get back to CM
tt hospitalist
PLAN: [facility] SNF
[facility]
Report #: [phone]
Fax #: [phone]
[2024-08-23 12:25] LABS: Glucose - Point of Care 70 mg/dl (70-99)
[2024-08-23] MEDS: NOVOLOG FLEXPEN SC (12:48)
--- NOTE | 2024-08-23 13:58 | W.DCSUMMARY ---
Addendum entered and electronically signed by Quentin Eli DO 08/24/24 07:40:
Patient actually left the hospital on 08/24 for SNF when bed became available.
Original Note:
Discharge Summary
Discharge Data
Date of Admission: 08/13/24
Date of Discharge: 08/23/24
-
Pending Results: No
Hospital Course
Ms. Teixeira is a 79-year-old female with a medical history of A-fib (on Eliquis), CHmrF, PAD, subdural hemorrhage, insulin-dependent diabetes mellitus, CKD, hypothyroidism, seizure disorder (on divalproex), and chronic urinary retention (with Tobin)
who presented with altered mental status. She completed a course of antibiotics for ESBL E. coli UTI associated with her Tobin catheter, which was replaced at the time of admission. Her Tobin catheter was also exchanged again after completion of
her antibiotic course of fosfomycin. Her mental status returned to baseline. Her presenting encephalopathy is believed to be metabolic in nature secondary to urinary tract infection which has now resolved. She was noted to have ambulatory
dysfunction and was recommended for rehab at SNF. Arrangements have been made with the assistance of case management and she will be discharged to SNF for ongoing physical therapy and Occupational Therapy.
Discharge Plan
-
Patient Disposition: Snf/SNF
Discharge Diagnosis/Procedures: Constipation
Diet: Low Fat and Diabetic, Carb Controlled
Activity: As tolerated
Driving Restrictions: As prior to admission
Activity Restrictions/Additional Instructions:
Ms. Teixeira is a 79-year-old female with a medical history of A-fib (on Eliquis), CHmrF, PAD, subdural hemorrhage, insulin-dependent diabetes mellitus, CKD, hypothyroidism, seizure disorder (on divalproex), and chronic urinary retention (with Tobin)
who presented with altered mental status. She completed a course of antibiotics for ESBL E. coli UTI associated with her Tobin catheter, which was replaced at the time of admission. Her Tobin catheter was also exchanged again after completion of
her antibiotic course of fosfomycin. Her mental status returned to baseline. Her presenting encephalopathy is believed to be metabolic in nature secondary to urinary tract infection which has now resolved. She was noted to have ambulatory
dysfunction and was recommended for rehab at SNF. Arrangements have been made with the assistance of case management and she will be discharged to SNF for ongoing physical therapy and Occupational Therapy.
Referrals:
Byron García MD [Active] - in three to four weeks (replace tobin)
Mitchell Hahn MD [Family Provider] -
Prescriptions:
New
Metamucil Fiber Singles 3.4 gram Powder In Packet
1 packet PO BID Qty: 60 0RF
polyethylene glycol 3350 17 gram Powder In Packet
17 g PO DAILY Qty: 30 0RF
Rx Instructions:
hold the dose if diarrhea or more then 2 BM per day
sennosides-docusate sodium 8.6-50 mg Tablet
1 tab PO BID Qty: 60 0RF
furosemide [Lasix] 20 mg tablet
20 mg PO DAILY Qty: 30 0RF
Continued
atorvastatin [Lipitor] 40 mg Tablet
40 mg PO DAILY
divalproex 500 mg Tablet,Delayed Release (Dr/Ec)
500 mg PO QPM
aspirin 81 mg Tablet,Delayed Release (Dr/Ec)
81 mg PO DAILY
vitamin B complex Tablet
1 tab PO DAILY
folic acid 1 mg Tablet
1 mg PO HS
duloxetine [Cymbalta] 60 mg Capsule,Delayed Release(Dr/Ec)
90 mg PO DAILY
Eliquis 5 mg Tablet
5 mg PO BID Qty: 0 0RF
amiodarone [Pacerone] 200 mg Tablet
200 mg PO DAILY Qty: 0 0RF
pantoprazole 40 mg Tablet,Delayed Release (Dr/Ec)
40 mg PO DAILY Qty: 0 0RF
cholecalciferol (vitamin D3) 50 mcg (2,000 unit) Tablet
50 mcg PO DAILY Qty: 0 0RF
magnesium oxide 400 mg magnesium Tablet
400 mg PO DAILY
ferrous sulfate 325 mg (65 mg iron) Tablet
325 mg PO DAILY
levothyroxine 125 mcg Tablet
125 mcg PO DAILY
gabapentin 100 mg Capsule
200 mg PO TID
estradiol 0.01 % (0.1 mg/gram) Cream
1 applic VAGINAL QWEEK
insulin lispro [Humalog KwikPen Insulin] 100 unit/mL insulin pen
5 unit SC AC
Visbiome 112.5 billion cell Capsule
1 cap PO DAILY
insulin glargine [Lantus Solostar U-100 Insulin] 100 unit/mL (3 mL) Insulin Pen
10 unit SC HS
Discontinued
furosemide 40 mg Tablet
40 mg PO DAILY Qty: 30 0RF
trimethoprim 100 mg Tablet
50 mg PO DAILY
Mounjaro 2.5 mg/0.5 mL Pen Injector
2.5 mg SC TH
Rx Instructions:
for 4 weeks
doxycycline hyclate 100 mg Tablet
100 mg PO BID
Discharge Orders:
Discharge Patient (As Directed); Ordered 08/23/24
Ordered By: Quentin Eli
Discharge Date and Time
Print Language: GREEK
--- NOTE | 2024-08-23 13:59 | W.PN.HOSP.TC ---
Today's Communication/Plan
-
Plan for discharge to SNF
Assessment / Plan
Assessment / Plan
79yo F with PMHx of Afib, CHF, HTN, chronic urinary retention on Law[place], Hx of subdural hemorrhage brought to the hospital with oncern for confusion, similar to prior, ehrn she had UTI. Next day after admission mentation is on the baseline. Lawton
replaced in ED. Found significant constipation with LLQ pain. CT abd/pelvis unremarkable for alternative pathology. Completed Abx for ESBL E.coli UTI and Lawton was replaced before discharge as advised by ID. Pain improving with bowel movement. MRI
lumbar: Multilevel degenerative changes of the lumbar spine as detailed, worst at L1-2 where disc and facet disease contribute to moderate spinal canal and neural foraminal stenosis at this level. Prominent disc osteophyte complexes/disc herniations
at T10-11 and T11-12 with ventral spinal cord flattening and probable moderate spinal canal stenosis at both levels. No abnormal cord signal or overt MR findings to support a clinical diagnosis of cauda equina syndrome. None of these can be cause
for recurrent constipation and chronic urinary retention. blood test benign, mild leukocytosis improving, procalcitonin neg. Medically stable for d/c, however declined rehab by insurance. Unsafe for home since needs max assistance of 2 for ambulation
A/P:
#Ambulatory dysfunction
PT/OT recommended rehab, SNF placement being arranged
Previously patient was living with her at home, ambulating with walker and minimal assistance from her , used WC for long distances, now needs maximum assistance of 2 for ambulation
#L neck pain
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
CT cervical spine without acute abnormality
#CAUTI
Lawton replaced
ESBL UTI E.coli
Outpatient urology to follow
S/P Fosfomycin as per ID
#Mild leukocytosis
repeated infectious w/u neg
completed Abx as per ID advise
improved off Abx
#Acute metabolic encephalopathy on admission
rapidly resolved
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
cont DM diet, accuchecks, insulin SS and basal/bolus regimen
#LLQ tenderness on palpation and on light squeezing of the abdominal fat pad
since pain even on light tough - not concerned for deep intra-abd pathology. No redness or collection n abd wall palpation. Furthermore: CT without intraabd pathology and no acute abdominal wall changes, no abscess seen
#constipation
laxatives, Enema
CT abd/pelvis 2/2 pain - no acute abnormality except significant constipation
#Vaginal dryness
hold estradiol while inpatient
DVT ppx on Eliquis
Full code
I have spent at least 39min reviewing chart, test results, communication with consultants and direct patient care
Anticipated Discharge: Today
Subjective/Interval History
-
Date of Service: August 23, 2024
Patient was seen and examined at bedside this morning. She feels generally well but complains of ongoing left heel pain. She is awaiting SNF placement.
Objective Data
-
Labs:
Laboratory Results
08/23/24
05:44
WBC 8.2
Hgb 11.1 L
Hct 33.8 L
Plt Count 178
Sodium 140
Potassium 4.5
Chloride 102
Carbon Dioxide 29
BUN 36 H
Creatinine 1.3 H
Glucose 134 H
Calcium 9.0
Total Bilirubin 0.3
AST 24
ALT 17
Alkaline Phosphatase 109
Vital Signs:
Vital Signs
Temp Pulse Resp BP Pulse Ox
98.3 F 62 16 128/54 96
08/23/24 07:10 08/23/24 09:19 08/23/24 07:10 08/23/24 09:19 08/23/24 10:14
I&O
08/22/24 08/23/24 08/24/24
06:59 06:59 06:59
Intake Total 240 / 240 1260 / 1260
Output Total 1250 / 1250 1595 / 1595
Balance -1010 / -1010 -335 / -335
Review of Systems
-
History Source: Patient
Constitutional: Reports No Symptoms
EENT: Reports No Symptoms Reported
Respiratory: Reports No Symptoms
Cardiac: Reports No Symptoms
Abdomen/GI: Reports No Symptoms
Musculoskeletal: Reports Other (Left heel pain)
Skin: Reports Sores (Left heel wound)
Neuro: Reports No Symptoms
Physical Exam
-
General: No Apparent Distress and Comfortable
HEENT: Normocephalic and Atraumatic
Respiratory: Clear to Auscultation and Non Labored Respirations
Cardiac: S1/S2 and Irregular Rhythm
GI: Nontender and Nondistended
Genito-urinary: Clear Urine and Lawton
Musculoskeletal: Other (Left heel wound)
Skin: Warm, Dry and Ulcers (Left heel wound)
Neuro: Awake and Alert
Psych: Calm
[2024-08-23 15:42] VITALS: BP 118/56
[2024-08-23 16:29] LABS: Glucose - Point of Care 123 mg/dl (70-99)
[2024-08-23] MEDS: DEPAKOTE (12 HR RELEASE) 500 MG PO (17:21)
[2024-08-23] MEDS: SENOKOT-S 1 TABLET PO (20:39)
[2024-08-23 21:23] LABS: Glucose - Point of Care 132 mg/dl (70-99)
[2024-08-23] MEDS: LANTUS 0.1 UNITS SC (23:16)
[2024-08-23 23:35] VITALS: BP 125/58
[2024-08-24 04:22] LABS: Glucose - Point of Care 112 mg/dl (70-99)
[2024-08-24] MEDS: SYNTHROID 125 MCG PO (05:52)
[2024-08-24 06:00] VITALS: BMI 29.3
[2024-08-24 07:00] VITALS: BP 156/66
[2024-08-24 07:12] LABS: Glucose - Point of Care 121 mg/dl (70-99)
[2024-08-24] MEDS: MIRALAX 17 GRAMS PO (08:35)
[2024-08-24] MEDS: PACERONE 200 MG PO (08:35)
[2024-08-24] MEDS: LIPITOR 40 MG PO (08:36)
[2024-08-24] MEDS: LASIX 20 MG PO (08:36)
[2024-08-24] MEDS: NEURONTIN 200 MG PO (08:36)
[2024-08-24] MEDS: CYMBALTA DELAYED RELEASE 90 MG PO (08:36)
[2024-08-24] MEDS: ELIQUIS 5 MG PO (08:36)
[2024-08-24] MEDS: SENOKOT-S 1 TABLET PO (08:36)
[2024-08-24] MEDS: VISBIOME 1 CAP PO (08:36)
[2024-08-24] MEDS: ASPIR LOW (ENTERIC COATED) 81 MG PO (08:36)
[2024-08-24] MEDS: PROTONIX 40 MG PO (08:36)
[2024-08-24] MEDS: LIDOCAINE 4% PATCH 1 PATCH TOPICAL (08:37)
[2024-08-24] MEDS: METAMUCIL, KONSYL PO (08:37)
[2024-08-24] MEDS: NOVOLOG FLEXPEN-LOW RESISTANCE SC (08:37)
[2024-08-24] MEDS: NOVOLOG FLEXPEN 5 UNITS SC ×2 (08:37→13:02)
[2024-08-24 12:15] LABS: Glucose - Point of Care 208 mg/dl (70-99)
[2024-08-24] MEDS: NOVOLOG FLEXPEN-LOW RESISTANCE 2 UNITS SC (13:02)
--- NOTE | 2024-08-24 13:51 | PTCARENOTE ---
pt to be discharged after 1400 this afternoon to [facility]. report called to [phone]. transferred and then disconnected. nurse attempted to recall and line made the 'line is busy' sound. will reattempt at a later time.
[2024-08-24 14:18] VITALS: BP 144/57
--- NOTE | 2024-08-24 15:04 | CM ---
Patient for discharge today
Authorization Approval #: [id number]
Start date 08/22/24
NRD 08/25/24
Telephone Sales Agent is Debra Devries - Fax updates to: [phone]
PLAN:
[facility]
Report #: [phone]
Fax #: [phone]
== END 2024-08-24 14:34 | DRG 698 ==
LOC: 2 NORTH 17:56
PROVIDERS: Internal Medicine; Nurse Practitioner; ADMITTING PHYSICIAN Internal Medicine; ATTENDING PHYSICIAN Internal Medicine; CONSULT PHYSICIAN Student in an Organized Health Care Education/Training Program; EMERGENCY PHYSICIAN Emergency Medicine; FAMILY PHYSICIAN Internal Medicine
DX: T83.518A Infection and inflammatory reaction due to other urinary catheter, initial encounter (principal); G93.41 Metabolic encephalopathy; N39.0 Urinary tract infection, site not specified; I50.22 Chronic systolic (congestive) heart failure; I13.0 Hypertensive heart and chronic kidney disease with heart failure and stage 1 through stage 4 chronic kidney disease, or unspecified chronic kidney disease; N17.9 Acute kidney failure, unspecified; Z16.24 Resistance to multiple antibiotics; Y84.6 Urinary catheterization as the cause of abnormal reaction of the patient, or of later complication, without mention of misadventure at the time of the procedure; N18.32 Chronic kidney disease, stage 3b; E11.22 Type 2 diabetes mellitus with diabetic chronic kidney disease; D63.1 Anemia in chronic kidney disease; K59.00 Constipation, unspecified; I48.0 Paroxysmal atrial fibrillation; G40.909 Epilepsy, unspecified, not intractable, without status epilepticus; E03.9 Hypothyroidism, unspecified; Z79.899 Other long term (current) drug therapy; Z79.01 Long term (current) use of anticoagulants; Z79.890 Hormone replacement therapy; Z79.4 Long term (current) use of insulin; Z86.718 Personal history of other venous thrombosis and embolism; G50.0 Trigeminal neuralgia; E78.00 Pure hypercholesterolemia, unspecified; N32.81 Overactive bladder; F32.A Depression, unspecified; G89.29 Other chronic pain; M79.7 Fibromyalgia; Z86.73 Personal history of transient ischemic attack (TIA), and cerebral infarction without residual deficits; I25.10 Atherosclerotic heart disease of native coronary artery without angina pectoris; Z95.5 Presence of coronary angioplasty implant and graft; G47.33 Obstructive sleep apnea (adult) (pediatric); Z96.612 Presence of left artificial shoulder joint; Z79.82 Long term (current) use of aspirin; B96.20 Unspecified Escherichia coli [E. coli] as the cause of diseases classified elsewhere; Z96.642 Presence of left artificial hip joint; Z78.9 Other specified health status; M25.78 Osteophyte, vertebrae; M47.816 Spondylosis without myelopathy or radiculopathy, lumbar region; M48.00 Spinal stenosis, site unspecified; M54.2 Cervicalgia
CPT/HCPCS: 70450; 71046; 72125; 72148; 74022; 74176; 80048; 80053; 80164; 81003; 81015; 82962; 83036; 83690; 83735; 84145; 84443; 85025; 85027; 87077; 87086; 87186; 96365; 97116; 97163; 97167; 97530; 97535; 99285; J1335

== ENCOUNTER 2024-09-14 02:50 | Inpatient (IN) | payer MEDICARE, OTHER, SELFPAY ==
[2024-09-13 21:49] VITALS: BP 167/76
[2024-09-13 21:54] VITALS: BMI 32.5
[2024-09-13 22:00] VITALS: BP 165/84
[2024-09-13 22:52] LABS: % Eosinophils 9.9 % (0-6); % Immature Granulocytes 0.5 % (0-0.5); % Lymphocytes 18.8 % (20.5-51.1); % Monocytes 9.1 % (1.7-9.3); % Neutrophils 60.7 % (42.2-75.2); Absolute Basophils 0.1 10^3/uL (0-0.2); Absolute Eosinophils 0.8 10^3/uL (0-0.7); Absolute Lymphocytes 1.5 10^3/uL (1.2-3.4); Absolute Monocytes 0.7 10^3/uL (0.1-0.6); Absolute Neutrophils 4.8 10^3/uL (1.4-6.5); Hematocrit 30.2 % (37.0-47.0); Hemoglobin 9.5 g/dL (12.0-16.0); Mean Corp Hgb Conc. 31.5 g/dL (33.0-37.0); Mean Corpuscular Hgb 29.1 pg (27.0-31.0); Mean Corpuscular Volume 92.6 fL (81.0-99.0); Mean Platelet Volume 9.9 fL (7.4-10.4); Nucleated Red Blood Cells % 0 %; Platelet Count 268 10^3/uL (130-400); Red Blood Cell Count 3.26 10^6/uL (4.20-5.40); Red Cell Dist. Width 15.6 % (11.5-14.5); White Blood Cell Count 7.9 10^3/uL (4.8-10.8)
[2024-09-13 23:00] VITALS: BP 167/63
[2024-09-13 23:04] LABS: ALT (SGPT) 17 U/L (0-35); AST (SGOT) 22 U/L (14-36); Albumin 3.3 g/dl (3.5-5.0); Alkaline Phosphatase 96 U/L (38-126); Blood Urea Nitrogen 24 mg/dl (7-17); Calcium 10.4 mg/dl (8.4-10.2); Carbon Dioxide 31 mmol/L (22-30); Chloride 107 mmol/L (98-107); Estimated Creatinine Clearance 42 ml/min; Glucose 141 mg/dl (70-99); Potassium 4.7 mmol/L (3.5-5.1); Sodium 141 mmol/L (135-145); Total Bilirubin 0.6 mg/dl (0.2-1.3); Total Protein 6.3 g/dl (6.3-8.2); eGFR 51.75
[2024-09-13 23:12] LABS: NT-proBNP 20700 pg/ml
--- NOTE | 2024-09-13 23:12 | ED.GENMED ---
History of Present Illness
General
Chief Complaint: Breathing Problem
Time Seen by Provider: 09/13/24 22:50
History of Present Illness
History of Present Illness:
Patient is a 79-year-old female with history of A-fib on Eliquis, CHF, CAD, hypertension, hyperlipidemia presenting to the emergency department shortness of breath. Patient states that she was recently just discharged from [facility] after she was
admitted for a fall and was found to have pneumonia. Per the discharge summary that patient brings with her patient was found to have pneumonia and was given IV antibiotics. During this patient did require nasal cannula and was discharged on 2 L.
While she was there she did have an AR so her Lasix was discontinued. Patient's son states that she is been short of breath for the past few days and was shocked that she was discharged was given how short of breath she was even with talking. No
chest pain. No fevers or chills. No URI symptoms. No nausea vomiting.
Past History
Past History
ED Past Medical History: Arrthythmia, CAD, CHF, HTN, Hypercholesterolemia and IDDM
ED Past Surgical History: Other
Social History
Tobacco: Non-smoker
Alcohol: None
Drug: Other
Personal:
Living: with family
Employment: Retired
Family History
Family History: Other
Phy Exam
Physical Exam
Physical Exam:
GENERAL: in no acute distress
HEENT: normocephalic, extraocular movements intact, moist oral mucosa
NECK: normal inspection
RESPIRATORY: Mild respiratory distress, short of breath with small sentences, accessory muscle use, limited air movement bilaterally
CARDIOVASCULAR: regular rate and rhythm
ABDOMEN/: soft, non-distended, non-tender to palpation, no rebound or guarding
EXTREMITIES: non-tender, no edema/swelling
NEUROLOGIC: awake and alert, moves all extremities
SKIN: warm
Scores
Heart Failure Risk
Heart Failure Risk Score: Not Applicable
Course
Orders/Labs/Results
Orders:
Orders
09/13/24 22:04
EKG [Electrocardiogram (*1)] Urgent
Reason for Study: Shortness of Breath
EKG- Treatment ONCE
09/13/24 22:42
Comprehensive Metabolic Panel Urgent
09/13/24 22:43
BNP [NT-proBNP] Urgent
Complete Blood Count/With Diff Urgent
09/13/24 22:48
CXR2 [CR Chest - 2 Views ] Urgent
Comment:
Reason For Exam: SHORT OF BREATH
09/13/24 23:11
COVID-19 Antigen Urgent
Source: Nasal Swab
Venous Blood Gas Urgent
%Oxygen/Room Air: 94
Influenza A+B Rapid Molecular Urgent
CHIDI Source: Nasal Swab
Specimen Description:
09/13/24 23:14
Ipratropium/Albuterol Sulfate [Duoneb] 3 ml INH R NOW STA
09/14/24 00:18
Furosemide [Lasix] 20 mg IV NOW STA
Abnormal Lab Results
09/13/24 09/13/24 09/13/24
22:42 22:43 23:11
RBC 3.26 L 10^6/uL
(4.20-5.40)
Hgb 9.5 L g/dL
(12.0-16.0)
Hct 30.2 L %
(37.0-47.0)
MCHC 31.5 L g/dL
(33.0-37.0)
RDW 15.6 H %
(11.5-14.5)
Absolute Monos (auto) 0.7 H 10^3/uL
(0.1-0.6)
Absolute Eos (auto) 0.8 H 10^3/uL
(0-0.7)
Lymphocytes % 18.8 L %
(20.5-51.1)
Eosinophils % 9.9 H %
(0-6)
VBG pCO2 53 H mmHg
(35-48)
VBG HCO3 29.9 H mmol/L
(22-27)
Carbon Dioxide 31 H mmol/L
(22-30)
BUN 24 H mg/dl
(7-17)
Creatinine 1.1 H mg/dL
(0.6-1.0)
Glucose 141 H mg/dl
(70-99)
Calcium 10.4 H mg/dl
(8.4-10.2)
Albumin 3.3 L g/dl
(3.5-5.0)
09/13/24 22:43
09/13/24 22:42
Vital Signs
Initial and Last Documented VS:
Initial Vital Signs
Temp Pulse Resp BP Pulse Ox
98.5 F 63 24 167/76 94
09/13/24 21:49 09/13/24 21:49 09/13/24 21:49 09/13/24 21:49 09/13/24 21:49
Last Documented Vital Signs
Temp Pulse Resp BP Pulse Ox
98.5 F 59 21 165/84 98
09/13/24 21:49 09/13/24 22:00 09/13/24 22:00 09/13/24 22:00 09/13/24 23:44
MDM/Problems Addressed
Differential Diagnosis Includes:
Patient is a 79-year-old woman presenting to the emergency room shortness of breath for the past few days. Vitals are notable for requiring 3 L nasal cannula and exam does show diminished air movement bilaterally. Differential sense of viral URI
versus CHF exacerbation versus worsening pneumonia. Will check blood work EKG and chest x-ray. Will place patient on BiPAP and give nebulizer treatment.
*Critical Care Note
Total Time (30-74mins, 75-104mins- exclusive of procedures): Not Applicable
Update Note
Update Note:
On reevaluation patient is on the BiPAP and has received a neb utilizer treatment. She is having much better aeration and appears much more comfortable. She is able to speak in full sentences. Her BNP is significantly elevated. Her VBG does show
mild CO2 retention. Chest x-ray per my interpretation with no obvious infiltrate. Lasix was ordered. Discussed with hospitalist who accepted patient to their service.
ED Attending Note
-
Portions of this chart may have been created with voice recognition software.� Occasional wrong word or��sound alike� substitutions may have occurred due to the inherent limitations of voice recognition software.
Discharge Plan
Departure
Patient Disposition: Admit
Date of Disposition: 09/14/24
Time of Disposition: 00:18
Presentation/result/management discussed w/ accepting MD/DO: Hospitalist
Discharge Problem:
CHF exacerbation
Prescriptions:
No Action
atorvastatin [Lipitor] 40 mg Tablet
40 mg PO DAILY
divalproex 500 mg Tablet,Delayed Release (Dr/Ec)
500 mg PO QPM
aspirin 81 mg Tablet,Delayed Release (Dr/Ec)
81 mg PO DAILY
vitamin B complex Tablet
1 tab PO DAILY
folic acid 1 mg Tablet
1 mg PO HS
duloxetine [Cymbalta] 60 mg Capsule,Delayed Release(Dr/Ec)
90 mg PO DAILY
Eliquis 5 mg Tablet
5 mg PO BID Qty: 0 0RF
amiodarone [Pacerone] 200 mg Tablet
200 mg PO DAILY Qty: 0 0RF
pantoprazole 40 mg Tablet,Delayed Release (Dr/Ec)
40 mg PO DAILY Qty: 0 0RF
cholecalciferol (vitamin D3) 50 mcg (2,000 unit) Tablet
50 mcg PO DAILY Qty: 0 0RF
magnesium oxide 400 mg magnesium Tablet
400 mg PO DAILY
ferrous sulfate 325 mg (65 mg iron) Tablet
325 mg PO DAILY
levothyroxine 125 mcg Tablet
125 mcg PO DAILY
gabapentin 100 mg Capsule
200 mg PO TID
estradiol 0.01 % (0.1 mg/gram) Cream
1 applic VAGINAL QWEEK
insulin lispro [Humalog KwikPen Insulin] 100 unit/mL insulin pen
5 unit SC AC
Visbiome 112.5 billion cell Capsule
1 cap PO DAILY
insulin glargine [Lantus Solostar U-100 Insulin] 100 unit/mL (3 mL) Insulin Pen
10 unit SC HS
Metamucil Fiber Singles 3.4 gram Powder In Packet
1 packet PO BID Qty: 60 0RF
polyethylene glycol 3350 17 gram Powder In Packet
17 g PO DAILY Qty: 30 0RF
Rx Instructions:
hold the dose if diarrhea or more then 2 BM per day
sennosides-docusate sodium 8.6-50 mg Tablet
1 tab PO BID Qty: 60 0RF
furosemide [Lasix] 20 mg tablet
20 mg PO DAILY Qty: 30 0RF
Referrals:
AGATHA ROBINS MD [Family Provider] -
Interventions
Interventions:
*Risk Screen - Suicide Last Done: 09/13/24 22:00
*General Assessment Last Done: 09/13/24 22:00
*Neglect/Abuse Screening Last Done: 09/13/24 22:00
*ED COVID-19 Vaccine History Last Done: 09/13/24 21:59
Discharge Date and Time
Print Language: BELARUSIAN
[2024-09-13 23:15] VITALS: PULSE 2; PULSE 87
[2024-09-13 23:15] LABS: Venous Blood Gas B.E. 3.6 mmol/L (-4 to +4); Venous Blood Gas HCO3 29.9 mmol/L (22-27); Venous Blood Gas O2 Sat % 78.6 %; Venous Blood Gas pCO2 53 mmHg (35-48); Venous Blood Gas pH 7.36 (7.32-7.43); Venous Blood Gas pO2 48 mmHg (30-50)
[2024-09-13] MEDS: DUONEB 3 ML INH (23:32)
[2024-09-13 23:45] LABS: COVID-19 Antigen Negative (Negative)
[2024-09-14] VITALS (22 sets, daily range): BP systolic 112–169; BP diastolic 41–128; PULSE 2–84; BMI 32.5
[2024-09-14] MEDS: LASIX 20 MG IV ×2 (01:06→08:01)
--- NOTE | 2024-09-14 01:48 | HPS.HSE ---
Family Physician
-
Family Physician: AGATHA ROBINS MD
Chief Complaint
-
Shortness of breath
History of Present Illness
This is a 79-year-old female with past medical history significant for chronic ischemic heart disease with ischemic cardiomyopathy, JAN, GERD, proximal atrial fibrillation, insulin-dependent diabetes, hypothyroid, hypertension [facility].
Patient unable to provide much history due to her debilitated state. She was recently discharged from [facility] and [facility] on [facility]. She was treated for pneumonia at [facility]. She had AR on arrival day and Lasix was
held. She was also recently admitted here with a urinary tract infection, at time of discharge Lasix was decreased from 40-20. She was having for about 4 days. She was discharged on 2 L nasal cannula to maintain saturation greater than 91%.
She arrived to the with moderate respiratory distress and accessory muscle use. She was immediately placed on BiPAP in the emergency department and started on neb treatment.
Blood pressure was 150/81 and she was afebrile with a temp of 98, she was satting 95% on BiPAP. Pulse was 58. Respiratory rate was 13. ECG showed a sinus bradycardia rate of 59. Troponin was negative. BNP was elevated at 20,700. She had a
white count of 7.9 hemoglobin 9.5 which is at baseline with normal platelet count. Electrolytes were unremarkable, bicarb was 31, creatinine was 1.1. Chest x-ray shows haziness throughout both lung reyes consistent with interstitial pulmonary
edema. No focal consolidations noted. ABG 7.36/53/29.
Medical History
Past Medical History
Past Medical History: Reports Other
Additional Past Medical History:
Chronic systolic congestive heart failure, type II non-STEMI myocardial infarction
Type 2 diabetes mellitus
History of acute kidney injury on chronic kidney disease stage III, history of shock related to ischemic colitis and extended spectrum beta-lactamase resistant Klebsiella urinary tract infection
Acute catheter-associated deep venous thrombosis in the right arm (midline placement)
Paroxysmal atrial fibrillation
Anemia of chronic disease
Trigeminal neuralgia
Hypothyroidism
Hyperlipidemia
Overactive bladder
Chronic pain/fibromyalgia/depression
History of subdural hematoma
Coronary artery disease status post stents with left bundle branch block
Previous history of stroke
Obstructive sleep apnea
Essential hypertension
Past Surgical History: Reports Other
Social History
Tobacco: Smoker
Alcohol: None
Drug: None
Personal: Single
Living: Alf
Employment: Retired
Family History
Family History: Not pertinent
Allergies / Home Medications
Allergies reflects when Allergies were last updated in [employer].
Home Medications with original date entered in [employer]
Allergy/Medication List:
Allergies
Allergy/AdvReac Type Severity Reaction Status Date / Time
cephalexin Allergy Unknown Verified 09/13/24 21:54
ciprofloxacin Allergy Hives Verified 09/13/24 21:54
formaldehyde Allergy Shortness Verified 09/13/24 21:54
of Breath
Iodinated Contrast Media Allergy Hives Verified 09/13/24 21:54
metoprolol Allergy Itching Verified 09/13/24 21:54
Penicillins Allergy Unknown Verified 09/13/24 21:54
piperacillin [From Zosyn] Allergy Unknown Verified 09/13/24 21:54
pregabalin [From Lyrica] Allergy Hives Verified 09/13/24 21:54
shellfish derived Allergy Unknown Verified 09/13/24 21:54
Nzqwutw-XJV-VfI Reductase Allergy Unknown Verified 09/13/24 21:54
Inhibitor
Sulfa (Sulfonamide Allergy Unknown Verified 09/13/24 21:54
Antibiotics)
tazobactam [From Zosyn] Allergy Unknown Verified 09/13/24 21:54
vancomycin Allergy Rash Verified 09/13/24 21:54
Home Medications
aspirin 81 mg tablet,delayed release 81 mg PO DAILY Blood Clot Prevention/Tx 05/17/23
atorvastatin 40 mg tablet (Lipitor) 40 mg PO DAILY High Cholesterol 05/17/23
divalproex 500 mg tablet,delayed release 500 mg PO QPM Neurological Condition 05/17/23
folic acid 1 mg tablet 1 mg PO HS Supplement 05/17/23
vitamin B complex 1 tab PO DAILY Supplement 05/17/23
amiodarone 200 mg tablet (Pacerone) 200 mg PO DAILY Arrhythmia #0 tabs 01/26/24
apixaban 5 mg tablet (Eliquis) 5 mg PO BID Blood clot prevention/tx #0 tabs 01/26/24
cholecalciferol (vitamin D3) 50 mcg (2,000 unit) tablet 50 mcg PO DAILY Supplement #0 tabs 01/26/24
pantoprazole 40 mg tablet,delayed release 40 mg PO DAILY Gastrointestinal issue #0 tabs 01/26/24
magnesium oxide 400 mg PO DAILY Supplement 03/20/24
ferrous sulfate 325 mg (65 mg iron) tablet 325 mg PO DAILY Supplement 08/13/24
gabapentin 100 mg capsule 200 mg PO TID Neurological Condition 08/13/24
insulin lispro 100 unit/mL subcutaneous pen (Humalog KwikPen (U-100) Insulin) unit SC AC Diabetes 08/13/24
levothyroxine 125 mcg tablet 125 mcg PO DAILY Thyroid 08/13/24
acetaminophen 500 mg tablet 1,000 mg PO Q6H PRN fever or pain 09/14/24
carboxymethylcellulose sodium 0.5 % eye drops 1 drp ophthalmic (eye) Q6H PRN eye irritation 09/14/24
carvedilol 3.125 mg tablet 3.125 mg PO Q12H a. fib 09/14/24
duloxetine 30 mg capsule,delayed release 30 mg PO DAILY 09/14/24
insulin glargine 100 unit/mL subcutaneous solution 8 unit SC DAILY 09/14/24
ipratropium bromide 42 mcg (0.06 %) nasal spray 2 spray intranasal TID stuffy nose 09/14/24
lidocaine 5 % topical patch 1 patch topical DAILY 09/14/24
tirzepatide 2.5 mg/0.5 mL subcutaneous pen injector 2.5 mg SC QWEEK 09/14/24
tolterodine 2 mg tablet 2 mg PO DAILY 09/14/24
Review of Systems
-
Unable to obtain full review of systems at this time due to: Acuity
Physical Exam
Vital Signs
Vital Signs
Temp Pulse Resp BP Pulse Ox
98.5 F 58 18 154/81 98
09/13/24 21:49 09/14/24 01:09 09/14/24 01:09 09/14/24 01:09 09/14/24 01:09
Physical Exam
General: Well Developed, No Apparent Distress and Comfortable
HEENT: NormoCephalic, Anicteric, Moist mucous membranes, Atraumatic, PERRLA and Oxygen
Respiratory: Clear
Cardiac: S1/S2 and Regular Rhythm
Breast: Deferred by me
GI: Soft, Non Tender, Non Distended and Normal Bowel Sounds
Rectal: Deferred by Provider
Genito-urinary: Deferred by me
Musculoskeletal: No Clubbing, No Cyanosis, Edema, Left Lower Extremity (trace) and Edema, Right Lower Extremity (trace)
Skin: Warm
Neuro: Awake, Oriented (oriented to person) and Nonfocal/grossly intact
Hematologic/Lymphatic: No Lymphadenopathy
Psych: Calm
Laboratory Results
-
09/13/24 22:43
09/13/24 22:42
Laboratory Results
Total Bilirubin 0.6 mg/dl (0.2-1.3) 09/13/24 22:42
AST 22 U/L (14-36) 09/13/24 22:42
ALT 17 U/L (0-35) 09/13/24 22:42
Alkaline Phosphatase 96 U/L (38-126) 09/13/24 22:42
Data Reviewed
-
Diagnostic Radiology: Image Personally Visualized and interpreted
Medical Tests (Nuc Med, Echo, EKG etc): Image Personally Visualized and interpreted
Lab Data: Labs Reviewed by me
Old Records: Reviewed
Impression/Plan
-
IMPRESSION:
79-year-old female with shortness of breath and hypoxia. She has a past medical history significant for congestive heart failure, paroxysmal atrial fibrillation, obstructive sleep apnea recently admitted to [facility] for pneumonia and
discharged on 2 L of oxygen. Arrived in the emergency department hypoxic requiring BiPAP. Has pulmonary edema and elevated BNP. Diuretics were held at [facility] due to AR. Afebrile here no leukocytosis. Unlikely pneumonia. Appears to have
finished course of antibiotics and have not seen.
PLAN:
CHF exacerbation
� Admit to IMU
� Continue BiPAP for respiratory support
� Tolerated with IV Lasix,, continue Lasix 20 mg IV every 12
� Daily weights, ins and outs, fluid restriction and low-sodium diet
� Continue GDMT with Coreg
�Echo in a.m.
� Cardiology consult
�Due to hypoxia requiring BiPAP will consult pulmonary
Proximal atrial fibrillation�currently sinus and rate controlled.
� Continue Coreg
� Continue amiodarone 200 daily
� Continue all Eliquis 5 mg twice daily
� Keep K and mag greater than 4, 2 respectively
Insulin-dependent diabetes
� Lantus 8 at bedtime, 3units ac
� Insulin sliding scale ACHS
Will continue PPI, levothyroxine
Chronic indwelling [place] catheter continue
DVT prophylaxis�on Eliquis
CODE STATUS�full code
[2024-09-14 06:53] LABS: Blood Urea Nitrogen 21 mg/dl (7-17); Calcium 9.6 mg/dl (8.4-10.2); Carbon Dioxide 27 mmol/L (22-30); Chloride 103 mmol/L (98-107); Estimated Creatinine Clearance 46 ml/min; Glucose 88 mg/dl (70-99); Magnesium 1.7 mg/dl (1.6-2.3); Phosphorus 3.7 mg/dl (2.5-4.5); Potassium 4.5 mmol/L (3.5-5.1); Sodium 141 mmol/L (135-145); eGFR 58.02
[2024-09-14 08:00] LABS: Glucose - Point of Care 89 mg/dl (70-99)
[2024-09-14] MEDS: COREG 3.125 MG PO ×2 (08:00→19:46)
[2024-09-14] MEDS: MAGNESIUM OXIDE 500 MG PO (08:00)
[2024-09-14] MEDS: ASPIR LOW (ENTERIC COATED) 81 MG PO (08:00)
[2024-09-14] MEDS: NEURONTIN 200 MG PO ×3 (08:00→19:46)
[2024-09-14] MEDS: FEOSOL 325 MG PO (08:00)
[2024-09-14] MEDS: ELIQUIS 5 MG PO ×2 (08:00→19:46)
[2024-09-14] MEDS: PACERONE 200 MG PO (08:00)
[2024-09-14] MEDS: PROTONIX 40 MG PO (08:01)
[2024-09-14] MEDS: LIPITOR 40 MG PO (08:01)
[2024-09-14] MEDS: NOVOLOG FLEXPEN-LOW RESISTANCE SC ×3 (08:05→18:06)
[2024-09-14] MEDS: LANTUS 0.08 UNITS SC (08:07)
--- NOTE | 2024-09-14 08:23 | CON.CAR ---
Addendum entered and electronically signed by Nicko Hayward MD 09/14/24 10:07:
I saw and examined the patient.
The APPLICATION DEVELOPER MANAGER's note was reviewed and I agree with the note.
79 y/o female with PAF on amiodarone and Eliquis, CAD, h/o coronary stenting, EF 40-45%, DM, CKD3B, hypertension, mitral regurgitation, RUE DVT, , , Fall with ICH, UTI's/retention, who present with SOB. Recent hospitalization and [facility]. Briefly
at rehab. Patient presemts with , bilat effusions and elevated pro BNP . Presentation suggestive of acute on chronic HfrEF. Patientis in sinus rhythm May be related to volume and diuretic adjustment during recent admit
- diuresis with IV lasix
- monitor weight/I/Os
- monitor labs
- Continue current tx of afib
- continue medical therapy for CAD
- Not adding Farxiga with recent UTI
- monior BPs and assess ability to add GDMT
Original Note:
Consultation
Consultation Request
Date/Time Consultation Requested: 09/14/24301
Date/Time Consultation Performed: 09/14/24823
Requesting Provider: Dr. Miller
Performing Provider: Lizeth GARCIA for Dr. Hayward
Reason for Consultation: CHF
Medical History
-
Chief Complaint: SOB
History of Present Illness:
79 y/o female with PAF on amiodarone and Eliquis, DM, CKD3B, hypertension, mitral regurgitation, RUE DVT, ICM, CAD with OBSTETRIC ANAESTHETIST prox RCA, also with hx stenting 2019, Fall with ICH, UTI's/retention, and seizure who is here for evaluation of SOB. She was
recently hospitalized here for UTI, and then [facility] (details unclear, but fall and infectious illness seem to be part of that admission) and was apparently d/c'd yesterday to rehab, then family noted that over the phone she was gasping for air and
alerted EMS. Of note, during last admit here, Lasix 40 mg daily was decreased to 20 mg daily. Weight is up. She is on O2 by [place]. She is being diuresed and is in no distress at the time of my assessment.
Past Medical History
Past Medical History: Arrhythmias, CAD, CHF, NIDDM (DM 2 on insulin), Seizures and Other (as above)
Social History
Living: With Family
Family History
Family History: Reviewed & Not Pertinent
Allergies / Home Medications
Allergy/AdvReac Type Severity Reaction Status Date / Time
cephalexin Allergy Unknown Verified 09/13/24 21:54
ciprofloxacin Allergy Hives Verified 09/13/24 21:54
formaldehyde Allergy Shortness Verified 09/13/24 21:54
of Breath
Iodinated Contrast Media Allergy Hives Verified 09/13/24 21:54
metoprolol Allergy Itching Verified 09/13/24 21:54
Penicillins Allergy Unknown Verified 09/13/24 21:54
piperacillin [From Zosyn] Allergy Unknown Verified 09/13/24 21:54
pregabalin [From Lyrica] Allergy Hives Verified 09/13/24 21:54
shellfish derived Allergy Unknown Verified 09/13/24 21:54
Lorfgfz-NZM-GrT Reductase Allergy Unknown Verified 09/13/24 21:54
Inhibitor
Sulfa (Sulfonamide Allergy Unknown Verified 09/13/24 21:54
Antibiotics)
tazobactam [From Zosyn] Allergy Unknown Verified 09/13/24 21:54
vancomycin Allergy Rash Verified 09/13/24 21:54
�Medication �Instructions �Recorded �Confirmed �Type
aspirin 81 mg tablet,delayed 81 mg PO DAILY Blood Clot 05/17/23 09/14/24 History
release Prevention/Tx
atorvastatin 40 mg tablet (Lipitor) 40 mg PO DAILY High Cholesterol 05/17/23 09/14/24 History
divalproex 500 mg tablet,delayed 500 mg PO QPM Neurological 05/17/23 09/14/24 History
release Condition
folic acid 1 mg tablet 1 mg PO HS Supplement 05/17/23 09/14/24 History
vitamin B complex 1 tab PO DAILY Supplement 05/17/23 09/14/24 History
amiodarone 200 mg tablet (Pacerone) 200 mg PO DAILY Arrhythmia #0 tabs 01/26/24 09/14/24 Rx
apixaban 5 mg tablet (Eliquis) 5 mg PO BID Blood clot 01/26/24 09/14/24 Rx
prevention/tx #0 tabs
cholecalciferol (vitamin D3) 50 50 mcg PO DAILY Supplement #0 tabs 01/26/24 09/14/24 Rx
mcg (2,000 unit) tablet
pantoprazole 40 mg tablet,delayed 40 mg PO DAILY Gastrointestinal 01/26/24 09/14/24 Rx
release issue #0 tabs
magnesium oxide 400 mg PO DAILY Supplement 03/20/24 09/14/24 History
ferrous sulfate 325 mg (65 mg 325 mg PO DAILY Supplement 08/13/24 09/14/24 History
iron) tablet
gabapentin 100 mg capsule 200 mg PO TID Neurological 08/13/24 09/14/24 History
Condition
insulin lispro 100 unit/mL unit SC AC Diabetes 08/13/24 08/13/24 History
subcutaneous pen (Humalog KwikPen
(U-100) Insulin)
levothyroxine 125 mcg tablet 125 mcg PO DAILY Thyroid 08/13/24 09/14/24 History
acetaminophen 500 mg tablet 1,000 mg PO Q6H PRN fever or pain 09/14/24 09/14/24 History
carboxymethylcellulose sodium 0.5 1 drp ophthalmic (eye) Q6H PRN eye 09/14/24 09/14/24 History
% eye drops irritation
carvedilol 3.125 mg tablet 3.125 mg PO Q12H a. fib 09/14/24 09/14/24 History
duloxetine 30 mg capsule,delayed 30 mg PO DAILY 09/14/24 09/14/24 History
release
insulin glargine 100 unit/mL 8 unit SC DAILY 09/14/24 09/14/24 History
subcutaneous solution
ipratropium bromide 42 mcg (0.06 2 spray intranasal TID stuffy nose 09/14/24 09/14/24 History
%) nasal spray
lidocaine 5 % topical patch 1 patch topical DAILY 09/14/24 09/14/24 History
tirzepatide 2.5 mg/0.5 mL 2.5 mg SC QWEEK 09/14/24 09/14/24 History
subcutaneous pen injector
tolterodine 2 mg tablet 2 mg PO DAILY 09/14/24 09/14/24 History
Review of Systems
-
History Source: Patient and Other (and chart)
All other systems: Negative unless noted
Constitutional: Weight Gain
Respiratory: Trouble Breathing
Physical Exam
Vital Signs
Temp Pulse Resp BP Pulse Ox
97.4 F 60 16 160/75 94
09/14/24 07:56 09/14/24 08:01 09/14/24 08:00 09/14/24 08:01 09/14/24 08:16
Lab Results
09/13/24 22:43
09/14/24 06:10
Fre-C-Chwfuabuxxa Pept 37638 pg/ml 09/13/24 22:43
Physical Exam
General: Well Developed, Well Nourished and No Apparent Distress
HEENT: Normocephalic and Anicteric
Respiratory: Crackles (b/l bases) and Other (on O2 by [place])
Cardiac: Regular Rhythm
Musculoskeletal: No Edema
Skin: Warm and Dry
Neuro: Awake and Alert
Psych: Calm
Impression / Plan
-
Hqift-xr-amxtbfy HFmEF:
-in setting of recent Lasix decrease. Weight is up significantly since last admit- 10 kg?
-CLARA : Mild/moderately reduced left ventricular systolic function. Left ventricular ejection fraction is 40-45%. Basal inferior hypokinesis. Thickened mitral valve leaflets. Dense posterior MAC. Mild mitral regurgitation.
-echo to be updated today
-agree with IV lasix, which requires intensive monitoring
-would not add SGLT2 inhibitor at this time, as she has recurrent UTI issues, chronic [place]. Other GDMT has been limited by renal dysfunction and hypotension per OP chart. She is on Coreg.
PAF:
-stable in SR on amiodarone
-on Eliquis- Of note, I spoke to daughter Minda over the phone and she tells me after traumatic ICH in fall, patient was cleared to resume ASA and Eliquis.
CAD:
-Records reviewed- known complex CAD and in past was not a CABG candidate: Last cath seems to have been an Impella supported Left Main PCI with a HEMAL in 08/2019. Cath 08/2019: 50-60 LM, 80 LAD, 80 Ramus, 100 RCA. Cath admit 01/12/2024 => stable CAD =>
LM stent patent. RCA OBSTETRIC ANAESTHETIST.
-stable without CP
-on ASA, statin, BB
Data Reviewed
-
EKG: Tracing Personally Visualized and interpreted (SB 59 BPM, LAD)
Radiology: Report Reviewed by me (Moderate right and mild left pleural effusions. Bilateral subsegmental atelectasis.)
Medical Tests (Nuc Med, Echo etc): Report Reviewed by me
Labs: Labs Reviewed by me
[2024-09-14] MEDS: CYMBALTA DELAYED RELEASE 30 MG PO (08:52)
[2024-09-14] MEDS: SYNTHROID 125 MCG PO (08:52)
[2024-09-14] MEDS: DETROL 2 MG PO (08:52)
[2024-09-14] MEDS: NOVOLOG FLEXPEN 3 UNITS SC (09:44)
--- NOTE | 2024-09-14 11:32 | W.PN.UPDATE ---
Update Note
Progress Note Update
I saw and evaluated the patient. I reviewed the resident�s note and agree with findings and plan as documented in the resident�s note.
No new complaints.
Gen: NAD, Awake and alert
Eyes: EOMI, PERRLA, no scleral icterus.
Neck: supple.
CV: zina, reg rhythm, +S1/S2, no m/r/g.
Resp: dec BS in the bases, otherwiseCTAB, no rales, wheezes, or rhonchi.
Abd: +BS, soft, NT, ND
Skin: No rashes.
Neuro: CN 2-12 intact, non-focal.
Psych: Normal mood and affect.
CXR: Moderate right and mild left pleural effusions. Bilateral subsegmental atelectasis.
Acute hypoxemic respiratory failiure due to acute on chronic HFrEF:
-was on BIPAP, now weaned to 5L [place] O2 (not on O2 at home)
-so far received 40mg total IV lasix. Will give another 40mg IV lasix now and increase standing lasix to 80mg IV BID.
-daily wts, I/Os, FR, low Na diet
-cont Coreg, further GDMT (aldactone/SGLT2i/CECI/ARB) to be determined prior to discharge
-cards following, discussed with cards team
-check echo
Other problems:
Proximal atrial fibrillation: cont Coreg/Amio/Eliquis
DM2: Cont Lantus/SSI/accuchecks/diabetic diet
GERD: Cont PPI
Hypothyroidism: Cont Levoxyl
Chronic indwelling [place] catheter continue
Obesity due to excess calories
FULL/Eliquis
Total time spent on today's encounter was 50 minutes which included time spent in counseling the patient/family regarding diagnosis and treatment plan as listed above, goals of care, and symptom management. Case was discussed with nursing staff,
specialists, and care coordinators/case management. All labs and imaging personally reviewed by me. Remainder the time spent in detailed review of previous records, lab data, imaging, and other medical provider documentation.
--- NOTE | 2024-09-14 11:32 | CM ---
Addendum entered by Rebecca Major 09/14/24 11:47:
Family Care Provider: PRANAV CASTRO, RADHA
NPI #[id number]
Addendum entered by Rebecca Major 09/14/24 11:45:
Family Care Provider: PRANAV CASTRO, RADHA
[address] [place] [address] [address]
ZORAN GUZMAN ?[phone]

Original Note:
Met with patient and her daughter at bedside in ED
Pharmacy verified: [address]
Address verified: [address] [place] [id number]
Patient admitted from [facility] shortly after arrival; daughter verbalized that patient/family does not want to return to facility
Patient lives with spouse, daughter, and son-in-law in a multilevel home; enters home via Ramp; then 2 steps up to access Chair Lift to upper level bedroom and bathroom; 2 steps up to 1st floor powder room
PLOF: per daughter, patient needs assistance with personal care; ambulated with a walker. 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
Prior SNF stay in summer
Will require transport when discharged
Plan: to be determined pending hospital course; list of SNFs provided for review
[2024-09-14] MEDS: LASIX 40 MG IV (12:34)
[2024-09-14 12:47] LABS: Glucose - Point of Care 58 mg/dl (70-99)
[2024-09-14 13:13] LABS: Glucose - Point of Care 75 mg/dl (70-99)
[2024-09-14] MEDS: NOVOLOG FLEXPEN SC ×2 (13:27→18:07)
[2024-09-14 15:26] LABS: Glucose - Point of Care 135 mg/dl (70-99)
--- NOTE | 2024-09-14 16:23 | W.PN.HOSP.TC ---
Today's Communication/Plan
-
.
Assessment / Plan
Assessment / Plan
1. Acute Hypoxemic Respiratory Failure 2/2 Acute on Chronic HFrEF
� On BiPAP on arrival, weaned to 5L by PR this AM.
� Increase standing Lasix to 80 mg IV
� Daily weights, I/Os, fluid restriction and low-Na diet
� Continue Coreg, consider other GDMT at d/c
- Appreciate Cards: monitor BPs and while considering added GDMTs; no Farxiga due to recent UTI
- ECHO:
2. Proximal atrial fibrillation�currently sinus and rate controlled.
� Continue Coreg
� Continue amiodarone 200 daily
� Continue all Eliquis 5 mg twice daily
� Keep K and mag greater than 4, 2 respectively
3. Insulin-dependent diabetes
� Lantus 8 at bedtime, 3units ac
� Insulin sliding scale ACHS
Will continue PPI, levothyroxine
Chronic indwelling Lawton catheter continue
DVT prophylaxis�on Eliquis
CODE STATUS�full code
Anticipated Discharge: 24 - 48 hours
Subjective/Interval History
-
Date of Service: September 14, 2024
No acute complaints this AM. On 5L by PR this AM.
HPI from chart: patient recently d/c from [facility] (treated for PNA with IV Abx) to [facility] on 09/13. Presented with AR on day of arrival and Lasix was held. Pt was still SOB on day of discharge and sent to [facility] on 2L by PR. Per son, patient continues to be
short of breath particularly with talking.
ED Course: Required BiPap in ED, no leukocytosis. CXR: Moderate right and mild left pleural effusions. Bilateral subsegmental atelectasis.
Objective Data
-
Labs:
Laboratory Results
09/14/24
06:10
Sodium 141
Potassium 4.5
Chloride 103
Carbon Dioxide 27
BUN 21 H
Creatinine 1.0
Glucose 88
Calcium 9.6
Vital Signs:
Vital Signs
Temp Pulse Resp BP Pulse Ox
97.6 F 54 18 112/62 95
09/14/24 15:27 09/14/24 14:00 09/14/24 14:00 09/14/24 14:00 09/14/24 14:00
I&O
09/13/24 09/14/24 09/15/24
06:59 06:59 06:59
Intake Total 450 / 450
Output Total 2300 / 2300 1825 / 1825
Balance -2300 / -2300 -1375 / -1375
Review of Systems
-
History Source: Records
Constitutional: Reports Weight Gain
Respiratory: Reports Trouble Breathing
Physical Exam
-
General: No Apparent Distress
HEENT: Normocephalic, Atraumatic and Anicteric
Respiratory: Decreased Breath Sounds (bases bilaterally); Negative Wheezes, Rales or Rhonchi
Cardiac: Regular Rhythm and S1/S2; Negative Murmur, Rub or Gallop
GI: Soft and Nontender
Neuro: Awake, Alert and Nonfocal/Grossly Intact
Psych: Calm
Data Reviewed
-
Diagnostic Radiology: Report Reviewed by me
Labs: Labs Reviewed by me
[2024-09-14] MEDS: LASIX 80 MG IV (16:38)
[2024-09-14 17:55] LABS: Glucose - Point of Care 127 mg/dl (70-99)
[2024-09-14] MEDS: DEPAKOTE (12 HR RELEASE) 500 MG PO (18:16)
[2024-09-14] MEDS: FOLVITE 1 MG PO (22:16)
[2024-09-15] VITALS (14 sets, daily range): BP systolic 105–144; BP diastolic 43–103; PULSE 2–88; BMI 30.6
[2024-09-15 01:27] LABS: Glucose - Point of Care 169 mg/dl (70-99)
[2024-09-15 03:04] LABS: Glucose - Point of Care 160 mg/dl (70-99)
[2024-09-15 05:29] LABS: Blood Urea Nitrogen 26 mg/dl (7-17); Calcium 9.8 mg/dl (8.4-10.2); Carbon Dioxide 33 mmol/L (22-30); Chloride 98 mmol/L (98-107); Estimated Creatinine Clearance 37 ml/min; Glucose 159 mg/dl (70-99); Potassium 4.6 mmol/L (3.5-5.1); Sodium 138 mmol/L (135-145); eGFR 46.62
--- NOTE | 2024-09-15 06:25 | PTCARENOTE ---
tolerated bipap throughout night- tobin draining clear yellow- resp status continues to improve- 4 liters nc when not on bipap
[2024-09-15 07:48] LABS: Glucose - Point of Care 138 mg/dl (70-99)
[2024-09-15] MEDS: NOVOLOG FLEXPEN-LOW RESISTANCE SC (08:37)
[2024-09-15] MEDS: NOVOLOG FLEXPEN SC ×2 (08:37→12:01)
[2024-09-15] MEDS: DETROL 2 MG PO (08:39)
[2024-09-15] MEDS: SYNTHROID 125 MCG PO (08:39)
[2024-09-15] MEDS: CYMBALTA DELAYED RELEASE 30 MG PO (08:39)
[2024-09-15] MEDS: MAGNESIUM OXIDE 500 MG PO (08:39)
[2024-09-15] MEDS: NEURONTIN 200 MG PO ×3 (08:39→21:01)
[2024-09-15] MEDS: ASPIR LOW (ENTERIC COATED) 81 MG PO (08:39)
[2024-09-15] MEDS: PROTONIX 40 MG PO (08:40)
[2024-09-15] MEDS: FEOSOL 325 MG PO (08:40)
[2024-09-15] MEDS: ELIQUIS 5 MG PO ×2 (08:40→20:10)
[2024-09-15] MEDS: LIPITOR 40 MG PO (08:40)
[2024-09-15] MEDS: COREG 3.125 MG PO ×2 (08:41→20:10)
[2024-09-15] MEDS: PACERONE 200 MG PO (08:43)
[2024-09-15] MEDS: LASIX 80 MG IV ×2 (08:44→15:43)
[2024-09-15] MEDS: LANTUS 0.08 UNITS SC (09:03)
--- NOTE | 2024-09-15 10:07 | W.PN.CD ---
Today's Communication / Plan
-
continue lasix 80mg IV bid
Impression / Plan
-
ICM, EF 40%, Mdfez-nm-kxixjio HFmEF:
-in setting of recent Lasix decrease. Weight is up significantly since last admit. Dry weight appears to be 70kg.
-echo 09/15/24: EF 40%, Stage I DD, mild MR, nl RV, mild TR, PASP 30
-continue lasix 80mg IV bid with close monitoring of labs and tele
-not on SGLT2i due to UTI
-coreg is at 3.125mg bid, limited by HR and BP in past
-entresto and MRA has been limited by BP and renal function in past
-based on BP and Cr trend, we can assess to add entresto before d/c; case mgmt consult placed
CKD3a: trend with diuresis
Parox AFib:
-stable in SR on amiodarone
-on Eliquis- Of note, we spoke to daughter Minda over the phone and she tells me after traumatic ICH in fall, patient was cleared to resume ASA and Eliquis.
CAD:
-Records reviewed- known complex CAD and in past was not a CABG candidate: Last cath seems to have been an Impella supported Left Main PCI with a HEMAL in 08/2019. Cath 08/2019: 50-60 LM, 80 LAD, 80 Ramus, 100 RCA. Cath admit 01/12/2024 => stable CAD =>
LM stent patent. 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
-stable without CP
-on ASA, statin, BB
Physical Exam
Vital Signs/Labs
Vital Signs
Temp Pulse Resp BP Pulse Ox
98.5 F 63 14 116/72 94
09/15/24 08:18 09/15/24 08:44 09/15/24 08:41 09/15/24 08:44 09/15/24 08:52
09/14/24 09/15/24 09/16/24
06:59 06:59 06:59
Actual Weight 80.5 kg 75.841 kg
09/13/24 22:43
09/15/24 04:43
Magnesium 1.7 mg/dl (1.6-2.3) 09/14/24 06:10
09/13/24
22:43
Yrm-Z-Yffuzpnqklz Pept
Physical Exam
Constitutional: No acute distress and Comfortable
EENT: Moist mucous membranes
Cardiovascular: Rhythm & rate is regular, Pedal edema present, JVD present and Systolic murmur present
Respiratory: Respiratory effort normal and Lungs clear to auscul.
Neuro/Psych: AO x 3
Data Reviewed
-
Date of Service: September 15, 2024
EKG: Other (Tele: SB 50s)
Labs: Labs Reviewed by me
--- NOTE | 2024-09-15 10:30 | W.PN.UPDATE ---
Addendum entered and electronically signed by Chris Cr MD 09/15/24 12:27:
Present on admission Bilateral heel Pressure injury stage 1
Original Note:
Update Note
Progress Note Update
I saw and evaluated the patient. I reviewed the resident�s note and agree with findings and plan as documented in the resident�s note.
No new complaints.
Gen: NAD, Awake and alert
Eyes: EOMI, PERRLA, no scleral icterus.
Neck: supple.
CV: zina, reg rhythm, +S1/S2, no m/r/g.
Resp: CTAB anteriorly, no rales, wheezes, or rhonchi.
Skin: No rashes. No LE edema
Neuro: CN 2-12 intact, non-focal.
Psych: Normal mood and affect.
CXR: Moderate right and mild left pleural effusions. Bilateral subsegmental atelectasis.
Echo: Normal LV size with mild to moderately reduced systolic function.
LVEF is approximately 40% by visual estimation. Global hypokinesis.
Moderate concentric LVH. Stage I diastolic dysfunction suggestive of abnormal
relaxation.
Normal right ventricular size and function.
Dense posterior mitral annular calcification. Mild mitral regurgitation.
Estimated pulmonary artery pressure of 25-30 mmHg.
Compared to prior CLARA from February 07, 2024, no significant change.
Acute hypoxemic respiratory failure due to acute on chronic HFrEF:
-echo above, EF 40%, G1DD, PASP 25-30mmHg
-was on BIPAP, now weaned to 3L NC O2 (not on O2 at home)
-cont Lasix to 80mg IV BID.
-daily wts, I/Os, FR, low Na diet
-cont Coreg, further GDMT (aldactone/SGLT2i/CECI/ARB) to be determined prior to discharge
-cards following, discussed with Dr. Gomez
Other problems:
Proximal atrial fibrillation: cont Coreg/Amio/Eliquis
DM2: Cont Lantus/SSI/accuchecks/diabetic diet
GERD: Cont PPI
Hypothyroidism: Cont Levoxyl
Chronic indwelling Lawton catheter continue
Obesity due to excess calories
FULL/Eliquis
--- NOTE | 2024-09-15 10:58 | PN.CDI ---
CDI
- -
CDI:
Physician Documentation Request
Admit Date: 09/14/24 02:50
Dear Doctor Shaye/Resident,
Please review the following and provide your response in the progress notes.
Clinical Indicators:
Pt admitted with Acute on Chronic HFrEF/Acute Hypoxic Respiratory Failure
Documented per Nursing wound care note 09/14, ' Present on admission Bilateral heel Pressure injury stage 1 ...treatment provided b/l heel foams applied ...'
Physician documentation of the type and location of wounds is required for compliant documentation. Based on the above clinical findings and your assessment, please provide the following in your progress note:
1. Location of the ulcer/wound, including laterality.
2. Type (etiology) of ulcer/wound:
- Pressure (decubitus) ulcer
- Non-pressure injury
- Other ( please specify)
Use of terms such as suspected, likely, concern for, or probable (associated with a specific diagnosis that is being evaluated, monitored, or treated as if it exists) are acceptable and can be coded in the inpatient setting, when documented at the
time of discharge.
Thank you,
Vicky Yancey RN
CDI Specialist
[place] [employer]
Please use your independent medical judgment in providing your response.
*Source: National Pressure Ulcer Advisory Panel (NPUAP)
[2024-09-15 12:01] LABS: Glucose - Point of Care 169 mg/dl (70-99)
[2024-09-15] MEDS: NOVOLOG FLEXPEN-LOW RESISTANCE 1 UNITS SC (12:01)
--- NOTE | 2024-09-15 12:01 | W.PN.HOSP.TC ---
Addendum entered and electronically signed by Janes Snyder DO, Resident 09/15/24 13:26:
Bilateral heel Pressure injury stage 1
- Bilateral Foam Heels
Original Note:
Today's Communication/Plan
-
.
Assessment / Plan
Assessment / Plan
1. Acute Hypoxemic Respiratory Failure 2/2 Acute on Chronic HFrEF
� On BiPAP on arrival, 5L yesterday, 3L today (improving)
� Continue Lasix 80 mg BID; monitor BMP (cr1.2 this AM)
� Daily weights, I/Os, fluid restriction and low-Na diet
- Dry weight appears to be 70kg; 75kg this AM
� Continue Coreg, consider other GDMT at d/c
- Appreciate Cards: monitor BPs and while considering added GDMTs; no Farxiga due to recent UTI
- ECHO: LVEF 40%, global hypokinesis, PA pressure 25-30
2. Proximal atrial fibrillation�currently sinus and rate controlled.
� Continue Coreg
� Continue amiodarone 200 daily
� Continue all Eliquis 5 mg twice daily
� Keep K and mag greater than 4, 2 respectively
3. Insulin-dependent diabetes
� Lantus 8 at bedtime, 3units ac (home dose)
- Hypoglycemia in AM; Lantus changed to 6 U today; monitor POC glucose
� Insulin sliding scale ACHS
Will continue PPI, levothyroxine
Chronic indwelling Lawton catheter continue
DVT prophylaxis�on Eliquis
CODE STATUS�full code
Anticipated Discharge: 24 - 48 hours
Subjective/Interval History
-
Date of Service: September 15, 2024
No acute complaints this AM. Denies chest pains, SOB, orthopnea, lower extremity edema.
Objective Data
-
Labs:
Laboratory Results
09/15/24
04:43
Sodium 138
Potassium 4.6
Chloride 98
Carbon Dioxide 33 H
BUN 26 H
Creatinine 1.2 H
Glucose 159 H
Calcium 9.8
Vital Signs:
Vital Signs
Temp Pulse Resp BP Pulse Ox
98.5 F 63 14 116/72 94
09/15/24 08:18 09/15/24 08:44 09/15/24 08:41 09/15/24 08:44 09/15/24 08:52
I&O
09/14/24 09/15/24 09/16/24
06:59 06:59 06:59
Intake Total 1070 / 1070
Output Total 2300 / 2300 3550 / 3550
Balance -2300 / -2300 -2480 / -2480
Review of Systems
-
History Source: Patient
Respiratory: Reports No Symptoms
Cardiac: Reports No Symptoms
Musculoskeletal: Reports No Symptoms
Neuro: Reports No Symptoms
Physical Exam
-
General: No Apparent Distress, Comfortable and Conversant
HEENT: Normocephalic, Atraumatic and Moist Mucous Membranes
Respiratory: Clear to Auscultation (anteriorly)
Cardiac: Regular Rhythm and S1/S2
Musculoskeletal: No Clubbing, No Cyanosis and No Edema
Skin: Warm and Dry
Neuro: Awake and Alert
Psych: Calm
Data Reviewed
-
Labs: Labs Reviewed by me and Discussed with Patient
[2024-09-15 17:07] LABS: Glucose - Point of Care 228 mg/dl (70-99)
[2024-09-15] MEDS: DEPAKOTE (12 HR RELEASE) 500 MG PO (17:24)
[2024-09-15] MEDS: NOVOLOG FLEXPEN 3 UNITS SC (17:25)
[2024-09-15] MEDS: NOVOLOG FLEXPEN-LOW RESISTANCE 4 UNITS SC (17:25)
[2024-09-15] MEDS: FOLVITE 1 MG PO (21:02)
[2024-09-15 21:45] LABS: Glucose - Point of Care 258 mg/dl (70-99)
[2024-09-16] VITALS (7 sets, daily range): BP systolic 99–156; BP diastolic 31–58; PULSE 2; BMI 30.5
--- NOTE | 2024-09-16 07:34 | W.PN.CD ---
Today's Communication / Plan
-
-Continue diuresis
-Continue amiodarone and Coreg.
-Rising creatinine, will not start Entresto, Farxiga, or Aldactone at this time.
Impression / Plan
-
ICM, EF 40%, Usugb-ih-rnrlajg HFmEF:
-in setting of recent Lasix decrease. Weight is up significantly since last admit. Dry weight appears to be 70kg.
-echo 09/15/24: EF 40%, Stage I DD, mild MR, nl RV, mild TR, PASP 30
-continue lasix 80mg IV bid with close monitoring of labs and tele
-not on SGLT2i due to UTI
-coreg is at 3.125mg bid, limited by HR and BP in past
-entresto and MRA has been limited by BP and renal function in past
-based on BP and Cr trend, we can assess to add entresto before d/c; case mgmt consult placed
CKD3a: trend with diuresis
- Cr os rising 1.0 to 1,4
- Needs diuresis.
- Labile BP - limiting GDMT
Parox AFib:
-stable in SR on amiodarone
-on Eliquis- Of note, we spoke to daughter Minda over the phone and she tells me after traumatic ICH in fall, patient was cleared to resume ASA and Eliquis.
CAD:
-Records reviewed- known complex CAD and in past was not a CABG candidate: Last cath seems to have been an Impella supported Left Main PCI with a HEMAL in 08/2019. Cath 08/2019: 50-60 LM, 80 LAD, 80 Ramus, 100 RCA. Cath admit 01/12/2024 => stable CAD =>
LM stent patent. 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
-stable without CP
-on ASA, statin, BB
Physical Exam
Vital Signs/Labs
Vital Signs
Temp Pulse Resp BP Pulse Ox
97.6 F 54 16 109/58 96
09/16/24 03:00 09/16/24 03:00 09/16/24 03:00 09/16/24 03:00 09/16/24 03:00
09/15/24 09/16/24 09/17/24
06:59 06:59 06:59
Actual Weight 75.841 kg 75.551 kg
Magnesium 1.7 mg/dl (1.6-2.3) 09/14/24 06:10
09/13/24
22:43
Cmk-H-Mpckniobtwi Pept
Physical Exam
Constitutional: No acute distress and Comfortable
EENT: Anicteric and Moist mucous membranes
Cardiovascular: Rhythm & rate is regular, Pedal edema present, JVD present and Systolic murmur present
Respiratory: Respiratory effort normal, Wheeze Absent and Crackles Absent
GI: Soft, Distention absent, Non tender and Normal bowel sounds
Neuro/Psych: Alert, Oriented and AO x 3
Data Reviewed
-
Date of Service: September 16, 2024
Medical Decision Making: Reviewed Test Results, Test Interpretation and Review of Case with other Provider
EKG: Tracing Personally Visualized and interpreted
Echo: Report Reviewed by me
Labs: Labs Reviewed by me
Old Records: Reviewed
[2024-09-16 07:41] LABS: Glucose - Point of Care 171 mg/dl (70-99)
[2024-09-16] MEDS: NOVOLOG FLEXPEN 3 UNITS SC ×3 (08:09→16:57)
[2024-09-16] MEDS: NOVOLOG FLEXPEN-LOW RESISTANCE 1 UNITS SC (08:10)
[2024-09-16] MEDS: LANTUS 0.06 UNITS SC (08:10)
[2024-09-16] MEDS: CYMBALTA DELAYED RELEASE 30 MG PO (08:11)
[2024-09-16] MEDS: LIPITOR 40 MG PO (08:14)
[2024-09-16] MEDS: PROTONIX 40 MG PO (08:14)
[2024-09-16] MEDS: ASPIR LOW (ENTERIC COATED) 81 MG PO (08:14)
[2024-09-16] MEDS: SYNTHROID 125 MCG PO (08:15)
[2024-09-16] MEDS: NEURONTIN 200 MG PO ×3 (08:15→21:39)
[2024-09-16] MEDS: PACERONE 200 MG PO (08:15)
[2024-09-16] MEDS: DETROL 2 MG PO (08:15)
[2024-09-16] MEDS: ELIQUIS 5 MG PO ×2 (08:15→20:31)
[2024-09-16] MEDS: COREG 3.125 MG PO ×2 (08:15→20:31)
[2024-09-16] MEDS: FEOSOL 325 MG PO (08:15)
[2024-09-16] MEDS: MAGNESIUM OXIDE 500 MG PO (08:15)
[2024-09-16] MEDS: LASIX 80 MG IV ×2 (08:16→15:55)
[2024-09-16 08:26] LABS: Blood Urea Nitrogen 34 mg/dl (7-17); Calcium 9.6 mg/dl (8.4-10.2); Chloride 95 mmol/L (98-107); Estimated Creatinine Clearance 32 ml/min; Glucose 151 mg/dl (70-99); Potassium 4.1 mmol/L (3.5-5.1); Sodium 138 mmol/L (135-145); eGFR 38.75
[2024-09-16 08:31] LABS: Hematocrit 31.4 % (37.0-47.0); Hemoglobin 10.2 g/dL (12.0-16.0); Mean Corp Hgb Conc. 32.5 g/dL (33.0-37.0); Mean Corpuscular Hgb 29.4 pg (27.0-31.0); Mean Corpuscular Volume 90.5 fL (81.0-99.0); Mean Platelet Volume 10.4 fL (7.4-10.4); Platelet Count 266 10^3/uL (130-400); Red Blood Cell Count 3.47 10^6/uL (4.20-5.40); Red Cell Dist. Width 15.4 % (11.5-14.5); White Blood Cell Count 8.8 10^3/uL (4.8-10.8)
[2024-09-16 08:41] LABS: Carbon Dioxide 39 mmol/L (22-30)
--- NOTE | 2024-09-16 09:41 | W.PN.UPDATE ---
Update Note
Progress Note Update
I saw and evaluated the patient. I reviewed the resident�s note and agree with findings and plan as documented in the resident�s note.
No new complaints.
Gen: remains NAD, Awake and alert
Eyes: EOMI, PERRLA, no scleral icterus.
Neck: supple.
CV: remains zina, reg rhythm, +S1/S2, no m/r/g.
Resp: remains CTAB anteriorly, no rales, wheezes, or rhonchi.
Skin: No rashes. No LE edema
Neuro: CN 2-12 intact, non-focal.
Psych: Normal mood and affect.
CXR: Moderate right and mild left pleural effusions. Bilateral subsegmental atelectasis.
Echo: Normal LV size with mild to moderately reduced systolic function.
LVEF is approximately 40% by visual estimation. Global hypokinesis.
Moderate concentric LVH. Stage I diastolic dysfunction suggestive of abnormal
relaxation.
Normal right ventricular size and function.
Dense posterior mitral annular calcification. Mild mitral regurgitation.
Estimated pulmonary artery pressure of 25-30 mmHg.
Compared to prior CLARA from February 07, 2024, no significant change.
Acute hypoxemic respiratory failure due to acute on chronic HFrEF:
-echo above, EF 40%, G1DD, PASP 25-30mmHg
-was on BIPAP, now weaned to 2L NC O2 (not on O2 at home)
-AR due to CRS
-cont Lasix to 80mg IV BID (favor further diuresis accepting a slightly higher Cr in order to achieve euvolemia)
-daily wts, I/Os, FR, low Na diet
-cont Coreg, further GDMT (aldactone/SGLT2i/CECI/ARB) to be determined prior to discharge. Note that with acute kidney injury patient can have none of these medications at this time.
-cards following
Other problems:
Proximal atrial fibrillation: cont Coreg/Amio/Eliquis
DM2: Cont Lantus/SSI/accuchecks/diabetic diet
GERD: Cont PPI
Hypothyroidism: Cont Levoxyl
Chronic indwelling Lawton catheter continue
Obesity due to excess calories
Present on admission Bilateral heel Pressure injury stage 1
FULL/Eliquis
--- NOTE | 2024-09-16 10:30 | W.PN.HOSP.TC ---
Today's Communication/Plan
-
.
Assessment / Plan
Assessment / Plan
1. Acute Hypoxemic Respiratory Failure 2/2 Acute on Chronic HFrEF
� On BiPAP on arrival, 5L yesterday, 3L today (improving)
� Continue Lasix 80 mg BID; monitor BMP (cr1.4 this AM)
- favoring further diuresis and accepting a slightly higher Cr in order to achieve euvolemia
� Daily weights, I/Os, fluid restriction and low-Na diet
- Dry weight appears to be 70kg; 75kg this AM, down 5kg since admission
� Continue Coreg, consider other GDMT at d/c
- Appreciate Cards: monitor BPs and while considering added GDMTs; no Farxiga due to recent UTI
- ECHO: LVEF 40%, global hypokinesis, PA pressure 25-30
2. Proximal atrial fibrillation�currently sinus and rate controlled.
� Continue Coreg
� Continue amiodarone 200 daily
� Continue all Eliquis 5 mg twice daily
� Keep K and mag greater than 4, 2 respectively
3. Insulin-dependent diabetes
� Lantus 8 at bedtime, 3units ac (home dose)
- Hypoglycemia in AM; Lantus changed to 6 U today; monitor POC glucose
� Insulin sliding scale ACHS
Will continue PPI, levothyroxine
Chronic indwelling Lawton catheter continue
DVT prophylaxis�on Eliquis
CODE STATUS�full code
Anticipated Discharge: 24 - 48 hours
Subjective/Interval History
-
Date of Service: September 16, 2024
Patient seen and examined while resting comfortably in bed. Patient has no acute complaints this morning. States that her breathing is feeling fine, was able to sleep well last night, no chest pain.
Objective Data
-
Labs:
Laboratory Results
09/16/24
07:10
WBC 8.8
Hgb 10.2 L
Hct 31.4 L
Plt Count 266
Sodium 138
Potassium 4.1
Chloride 95 L
Carbon Dioxide 39 H
BUN 34 H
Creatinine 1.4 H
Glucose 151 H
Calcium 9.6
Vital Signs:
Vital Signs
Temp Pulse Resp BP Pulse Ox
97.4 F 60 13 156/49 88
09/16/24 07:00 09/16/24 07:00 09/16/24 07:00 09/16/24 07:00 09/16/24 07:00
I&O
09/15/24 09/16/24 09/17/24
06:59 06:59 06:59
Intake Total 1070 / 1070 1025 / 1025
Output Total 3550 / 3550 2175 / 2175
Balance -2480 / -2480 -1150 / -1150
Review of Systems
-
History Source: Patient
Constitutional: Reports No Symptoms
Respiratory: Reports No Symptoms
Cardiac: Reports No Symptoms
Musculoskeletal: Reports No Symptoms
Neuro: Reports No Symptoms
Physical Exam
-
General: No Apparent Distress, Comfortable and Conversant
HEENT: Normocephalic, Atraumatic and Moist Mucous Membranes
Respiratory: Clear to Auscultation; Negative Wheezes, Rales or Rhonchi
Cardiac: Regular Rhythm and Bradycardic
GI: Soft and Nontender
Musculoskeletal: No Clubbing, No Cyanosis and Other (trace edema)
Skin: Warm
Neuro: Awake, Alert and Oriented
Psych: Calm
Data Reviewed
-
Labs: Labs Reviewed by me and Discussed with Patient
[2024-09-16 11:40] LABS: Glucose - Point of Care 134 mg/dl (70-99)
[2024-09-16] MEDS: NOVOLOG FLEXPEN-LOW RESISTANCE SC ×2 (12:26→16:57)
--- NOTE | 2024-09-16 12:45 | CM ---
maintenance manager received a consult for pricing of Entresto 24/26mg bid, call placed to patient's pharmacy and they stated that since patient has not met her deductible cost would be $467 per month and then after deductible $47 per month, however, case
facility manager facility manager wanted to confirm with her insurance however they are closed today.
Plan; Need to follow up on pricing for Entresto daughter would like patient set up for skilled placement at [facility], or [facility], referrals sent to both facilities.
[2024-09-16 16:46] LABS: Glucose - Point of Care 149 mg/dl (70-99)
[2024-09-16] MEDS: DEPAKOTE (12 HR RELEASE) 500 MG PO (16:56)
[2024-09-16] MEDS: FOLVITE 1 MG PO (21:39)
[2024-09-16 21:46] LABS: Glucose - Point of Care 141 mg/dl (70-99)
[2024-09-17 03:00] VITALS: BP 146/49
[2024-09-17 06:00] VITALS: BMI 29.7
[2024-09-17 07:32] LABS: Glucose - Point of Care 192 mg/dl (70-99)
[2024-09-17 07:53] VITALS: BP 116/42
[2024-09-17 08:09] LABS: Blood Urea Nitrogen 39 mg/dl (7-17); Calcium 9.4 mg/dl (8.4-10.2); Carbon Dioxide 34 mmol/L (22-30); Chloride 94 mmol/L (98-107); Estimated Creatinine Clearance 32 ml/min; Glucose 159 mg/dl (70-99); Potassium 4.3 mmol/L (3.5-5.1); Sodium 134 mmol/L (135-145); eGFR 38.75
[2024-09-17] MEDS: DETROL 2 MG PO (08:29)
[2024-09-17] MEDS: ASPIR LOW (ENTERIC COATED) 81 MG PO (08:29)
[2024-09-17] MEDS: NOVOLOG FLEXPEN-LOW RESISTANCE 1 UNITS SC (08:29)
[2024-09-17] MEDS: NEURONTIN 200 MG PO ×3 (08:29→22:07)
[2024-09-17] MEDS: NOVOLOG FLEXPEN 3 UNITS SC ×3 (08:29→16:55)
[2024-09-17] MEDS: PROTONIX 40 MG PO (08:29)
[2024-09-17] MEDS: MAGNESIUM OXIDE 500 MG PO (08:30)
[2024-09-17] MEDS: PACERONE 200 MG PO (08:30)
[2024-09-17] MEDS: LASIX 80 MG IV ×2 (08:30→16:50)
[2024-09-17] MEDS: ELIQUIS 5 MG PO ×2 (08:30→19:56)
[2024-09-17] MEDS: LIPITOR 40 MG PO (08:30)
[2024-09-17] MEDS: SYNTHROID 125 MCG PO (08:30)
[2024-09-17] MEDS: COREG 3.125 MG PO ×2 (08:30→19:56)
[2024-09-17] MEDS: FEOSOL 325 MG PO (08:30)
[2024-09-17] MEDS: CYMBALTA DELAYED RELEASE 30 MG PO (08:31)
[2024-09-17] MEDS: LANTUS 0.06 UNITS SC (08:35)
--- NOTE | 2024-09-17 09:57 | W.PN.CD ---
Today's Communication / Plan
-
-Creatinine stable around 1.4 today -continue diuresis.
Impression / Plan
-
ICM, EF 40%, Ygmkj-gj-oglsrgh HFmEF:
-in setting of recent Lasix decrease. Weight is up significantly since last admit. Dry weight appears to be 70kg.
-echo 09/15/24: EF 40%, Stage I DD, mild MR, nl RV, mild TR, PASP 30
-continue lasix 80mg IV bid with close monitoring of labs and tele
-not on SGLT2i due to UTI
-coreg is at 3.125mg bid, limited by HR and BP in past
-entresto and MRA has been limited by BP and renal function in past
-based on BP and Cr trend, we can assess to add entresto before d/c; case mgmt consult placed
CKD3a: trend with diuresis
- Cr os rising 1.0 to 1,4
- Needs diuresis.
- Labile BP - limiting GDMT
Parox AFib:
-stable in SR on amiodarone
-on Eliquis- Of note, we spoke to daughter Minda over the phone and she tells me after traumatic ICH in fall, patient was cleared to resume ASA and Eliquis.
CAD:
-Records reviewed- known complex CAD and in past was not a CABG candidate: Last cath seems to have been an Impella supported Left Main PCI with a HEMAL in 08/2019. Cath 08/2019: 50-60 LM, 80 LAD, 80 Ramus, 100 RCA. Cath admit 01/12/2024 => stable CAD =>
LM stent patent. 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
-stable without CP
-on ASA, statin, BB
Physical Exam
Vital Signs/Labs
Vital Signs
Temp Pulse Resp BP Pulse Ox
97.7 F 55 13 116/42 90
09/17/24 07:53 09/17/24 07:53 09/17/24 07:53 09/17/24 07:53 09/17/24 08:24
09/16/24 09/17/24 09/18/24
06:59 06:59 06:59
Actual Weight 75.551 kg 73.573 kg
09/16/24 07:10
09/17/24 06:20
Magnesium 1.7 mg/dl (1.6-2.3) 09/14/24 06:10
09/13/24
22:43
Wzw-W-Oqpzmupmklh Pept
Physical Exam
Constitutional: No acute distress and Comfortable
EENT: Anicteric and Moist mucous membranes
Cardiovascular: Rhythm & rate is regular, Pedal edema present, JVD present and Systolic murmur present
Respiratory: Respiratory effort normal and Crackles Present
GI: Soft, Non tender and Normal bowel sounds
Neuro/Psych: Alert, Oriented and AO x 3
Data Reviewed
-
Date of Service: September 17, 2024
Medical Decision Making: Reviewed Test Results, Test Interpretation and Review of Case with other Provider
EKG: Tracing Personally Visualized and interpreted
Labs: Labs Reviewed by me
Old Records: Reviewed
[2024-09-17 11:07] VITALS: BP 124/34
[2024-09-17 12:26] LABS: Glucose - Point of Care 230 mg/dl (70-99)
--- NOTE | 2024-09-17 12:53 | W.PN.UPDATE ---
Update Note
Progress Note Update
I saw and evaluated the patient. I reviewed the resident�s note and agree with findings and plan as documented in the resident�s note.
Denies chest pain or shortness of breath
Gen: Continues to remain NAD, Awake and alert
Eyes: EOMI, PERRLA, no scleral icterus.
Neck: supple.
CV: Continues to remain zina, reg rhythm, +S1/S2, no m/r/g.
Resp: continues to remain CTAB anteriorly, no rales, wheezes, or rhonchi.
Skin: No rashes. No LE edema
Neuro: CN 2-12 intact, non-focal.
Psych: Normal mood and affect.
CXR: Moderate right and mild left pleural effusions. Bilateral subsegmental atelectasis.
Echo: Normal LV size with mild to moderately reduced systolic function.
LVEF is approximately 40% by visual estimation. Global hypokinesis.
Moderate concentric LVH. Stage I diastolic dysfunction suggestive of abnormal
relaxation.
Normal right ventricular size and function.
Dense posterior mitral annular calcification. Mild mitral regurgitation.
Estimated pulmonary artery pressure of 25-30 mmHg.
Compared to prior CLARA from February 07, 2024, no significant change.
Acute hypoxemic respiratory failure due to acute on chronic HFrEF:
-echo above, EF 40%, G1DD, PASP 25-30mmHg
-was on BIPAP, now weaned to 2L NC O2 (not on O2 at home)
-AR due to CRS
-cont Lasix to 80mg IV BID (favor further diuresis accepting a slightly higher Cr in order to achieve euvolemia, Cr stable at 1.4)
-daily wts, I/Os, FR, low Na diet
-cont Coreg, further GDMT (aldactone/SGLT2i/CECI/ARB) to be determined prior to discharge. Note that with acute kidney injury patient can have none of these medications at this time.
-cards following
Other problems:
Proximal atrial fibrillation: cont Coreg/Amio/Eliquis
DM2: Cont Lantus/SSI/accuchecks/diabetic diet
GERD: Cont PPI
Hypothyroidism: Cont Levoxyl
Chronic indwelling Lawton catheter continue
Obesity due to excess calories
Present on admission Bilateral heel Pressure injury stage 1
FULL/Eliquis
[2024-09-17] MEDS: NOVOLOG FLEXPEN-LOW RESISTANCE 2 UNITS SC ×2 (12:54→16:55)
[2024-09-17 15:00] VITALS: BP 104/35
--- NOTE | 2024-09-17 15:54 | W.PN.HOSP.TC ---
Today's Communication/Plan
-
.
Assessment / Plan
Assessment / Plan
1. Acute Hypoxemic Respiratory Failure 2/2 Acute on Chronic HFrEF
� On BiPAP on arrival, 2L today SaO2 in 90s (improving)
� Continue Lasix 80 mg BID; monitor BMP (cr1.4 this AM)
- favoring further diuresis and accepting a slightly higher Cr in order to achieve euvolemia
� Daily weights, I/Os, fluid restriction and low-Na diet
- Dry weight appears to be 70kg; 73kg this AM, down 7kg since admission
� Continue Coreg, consider other GDMT at d/c
- Appreciate Cards: monitor BPs and while considering added GDMTs; no Farxiga due to recent UTI
- ECHO: LVEF 40%, global hypokinesis, PA pressure 25-30
2. Proximal atrial fibrillation�currently sinus and rate controlled.
� Continue Coreg
� Continue amiodarone 200 daily
� Continue all Eliquis 5 mg twice daily
� Keep K and mag greater than 4, 2 respectively
3. Insulin-dependent diabetes
� Lantus 8 at bedtime, 3units ac (home dose)
- Hypoglycemia in AM; Lantus changed to 6 U today; monitor POC glucose
� Insulin sliding scale ACHS
Will continue PPI, levothyroxine
Chronic indwelling [place] catheter continue
DVT prophylaxis�on Eliquis
CODE STATUS�full code
Anticipated Discharge: 24 - 48 hours
Subjective/Interval History
-
Date of Service: September 17, 2024
No acute complaints, on 2L by NC this AM.
Objective Data
-
Labs:
Laboratory Results
09/17/24
06:20
Sodium 134 L
Potassium 4.3
Chloride 94 L
Carbon Dioxide 34 H
BUN 39 H
Creatinine 1.4 H
Glucose 159 H
Calcium 9.4
Vital Signs:
Vital Signs
Temp Pulse Resp BP Pulse Ox
97.9 F 46 15 124/34 94
09/17/24 11:07 09/17/24 11:07 09/17/24 11:07 09/17/24 11:07 09/17/24 11:07
I&O
09/16/24 09/17/24 09/18/24
06:59 06:59 06:59
Intake Total 1025 / 1025 790 / 790
Output Total 2175 / 2175 1720 / 1720
Balance -1150 / -1150 -930 / -930
Review of Systems
-
History Source: Patient
Constitutional: Reports No Symptoms
Respiratory: Reports No Symptoms
Cardiac: Reports No Symptoms
Musculoskeletal: Reports No Symptoms
Physical Exam
-
General: No Apparent Distress and Comfortable
HEENT: Normocephalic and Atraumatic
Respiratory: Clear to Auscultation and Non Labored Respirations
Cardiac: Regular Rhythm and S1/S2
GI: Soft and Nontender
Musculoskeletal: No Clubbing, No Cyanosis and Other (trace edema)
Skin: Warm
Neuro: Awake and Alert
Psych: Calm
[2024-09-17] MEDS: DEPAKOTE (12 HR RELEASE) 500 MG PO (16:50)
[2024-09-17 16:56] LABS: Glucose - Point of Care 214 mg/dl (70-99)
[2024-09-17 19:50] VITALS: BP 107/51
[2024-09-17] MEDS: TYLENOL 650 MG PO (20:02)
[2024-09-17 21:37] LABS: Glucose - Point of Care 327 mg/dl (70-99)
[2024-09-17] MEDS: FOLVITE 1 MG PO (22:07)
[2024-09-17 23:40] VITALS: BP 101/54
[2024-09-18] VITALS (7 sets, daily range): BP systolic 102–136; BP diastolic 35–65; PULSE 2–55; BMI 29.4
[2024-09-18 07:47] LABS: Blood Urea Nitrogen 46 mg/dl (7-17); Calcium 9.6 mg/dl (8.4-10.2); Chloride 94 mmol/L (98-107); Estimated Creatinine Clearance 29 ml/min; Glucose 157 mg/dl (70-99); Sodium 137 mmol/L (135-145); eGFR 35.67
[2024-09-18 07:49] LABS: Glucose - Point of Care 180 mg/dl (70-99)
[2024-09-18 07:59] LABS: Carbon Dioxide 35 mmol/L (22-30)
[2024-09-18] MEDS: CYMBALTA DELAYED RELEASE 30 MG PO (10:06)
[2024-09-18] MEDS: PROTONIX 40 MG PO (10:06)
[2024-09-18] MEDS: LIPITOR 40 MG PO (10:06)
[2024-09-18] MEDS: ASPIR LOW (ENTERIC COATED) 81 MG PO (10:07)
[2024-09-18] MEDS: SYNTHROID 125 MCG PO (10:07)
[2024-09-18] MEDS: COREG 3.125 MG PO ×2 (10:07→21:48)
[2024-09-18] MEDS: DETROL 2 MG PO (10:07)
[2024-09-18] MEDS: MAGNESIUM OXIDE 500 MG PO (10:08)
[2024-09-18] MEDS: ELIQUIS 5 MG PO ×2 (10:08→21:47)
[2024-09-18] MEDS: NEURONTIN 200 MG PO ×3 (10:08→21:47)
[2024-09-18] MEDS: FEOSOL 325 MG PO (10:08)
[2024-09-18] MEDS: LANTUS 0.06 UNITS SC (10:09)
[2024-09-18] MEDS: LASIX 80 MG IV ×2 (10:09→17:55)
[2024-09-18] MEDS: PACERONE 200 MG PO (10:09)
[2024-09-18] MEDS: NOVOLOG FLEXPEN 3 UNITS SC ×3 (10:10→17:56)
[2024-09-18] MEDS: NOVOLOG FLEXPEN-LOW RESISTANCE 1 UNITS SC ×2 (10:11→17:56)
[2024-09-18 12:19] LABS: Glucose - Point of Care 227 mg/dl (70-99)
[2024-09-18] MEDS: NOVOLOG FLEXPEN-LOW RESISTANCE 2 UNITS SC (14:14)
[2024-09-18] MEDS: DESENEX/MITRAZOL/ZEASORB 1 APPLIC TOPICAL ×2 (14:17→21:46)
--- NOTE | 2024-09-18 14:39 | W.PN.CD ---
Addendum entered and electronically signed by Scott Villavicencio MD 09/18/24 17:19:
I saw and examined the patient.
The KNIFE FINISHER's note was reviewed and I agree with the note.
Comment: No LE edema, feels better, near goal weight. Suspect will be able to move to PO diuretic tomorrow.
Original Note:
Today's Communication / Plan
-
-continue IV diuresis and monitor. Likely transition to PO soon.
Impression / Plan
-
ICM, EF 40%, Sbzez-kx-mxjmhmn HFmEF: improving
-in setting of recent Lasix decrease. Weight is up significantly since last admit. Dry weight appears to be 70kg.
-echo 09/15/24: EF 40%, Stage I DD, mild MR, nl RV, mild TR, PASP 30
-continue lasix 80mg IV bid with close monitoring of labs and tele
-not on SGLT2i due to UTI
-Coreg is at 3.125mg bid, limited by HR and BP in past
-Entresto and MRA has been limited by BP and renal function in past-based on BP and Cr trend, we can assess to add Entresto before d/c; case mgmt consult placed
CKD3a: trend with diuresis
- creatinine is rising with diuresis. However, similar to previous creatinines on my review.
- still appears to need diuresis- remains on O2 and no at goal weight yet
- Labile BP - limiting GDMT
Parox AFib:
-stable in SR on amiodarone
-on Eliquis- Of note, we spoke to daughter Minda over the phone and she tells me after traumatic ICH in fall, patient was cleared to resume ASA and Eliquis.
CAD:
-Records reviewed- known complex CAD and in past was not a CABG candidate: Last cath seems to have been an Impella supported Left Main PCI with a HEMAL in 08/2019. Cath 08/2019: 50-60 LM, 80 LAD, 80 Ramus, 100 RCA. Cath admit 01/12/2024 => stable CAD =>
LM stent patent. RCA [employer].
-stable without CP
-on ASA, statin, BB
Physical Exam
Vital Signs/Labs
Vital Signs
Temp Pulse Resp BP Pulse Ox
98.1 F 52 18 103/54 94
09/18/24 11:00 09/18/24 11:00 09/18/24 11:00 09/18/24 11:00 09/18/24 11:00
09/17/24 09/18/24 09/19/24
06:59 06:59 06:59
Actual Weight 73.573 kg 72.773 kg
09/16/24 07:10
09/18/24 07:10
Magnesium 1.7 mg/dl (1.6-2.3) 09/14/24 06:10
09/13/24
22:43
Wwm-D-Ntkmwbbevnq Pept
Physical Exam
Constitutional: No acute distress
EENT: Anicteric
Cardiovascular: Rhythm & rate is regular (SB) and Pedal edema is absent
Respiratory: Respiratory effort normal and Other (on O2 by NC; lungs diminished to bases)
Neuro/Psych: Alert and Oriented
Data Reviewed
-
Date of Service: September 18, 2024
EKG: Other (SB/ SR)
Labs: Labs Reviewed by me
--- NOTE | 2024-09-18 17:00 | W.PN.HOSP.TC ---
Addendum entered and electronically signed by Mingo Juarez MD 09/18/24 20:53:
Attending Addendum-
I saw and evaluated the patient. I reviewed the resident�s note and agree with findings and plan as documented in the resident�s note. Sub: feels that SOB has improved. Still feels weak. Denies CP palps. Full 12 point ROS reviewed and negative
except as documented Exam: Vitals reviewed in chart GEN-NAD heart RRR no murmurs lungs crackles at bases b/l abd soft NT LE trace b/l LE edema Law[place] in place draining clear yellow urine
Plan:
# ICM, EF 40%, Blngm-yg-qsbilft HFmEF
-Dry weight @70 kg now 72kg
-echo 09/15/24: EF 40%, Stage I DD, mild MR
-continue lasix 80mg IV bid with close monitoring of labs and tele, transition to PO in AM
-not on SGLT2 due to UTI
-cont Coreg
-assess if able to add Entresto before d/c; case mgmt consult placed
# Chronic Indwelling [place]
- PT OT
- continue
#Acute hypoxemic respiratory failure due to acute on chronic HFmEF:
-was on BIPAP, now weaned to 2L NC O2 (not on O2 at home)
- wean for sats > 92%
#AR on CKD3b
-resolved
-baseline @ 1.5
-cont ot trend
#Paroxysmal AFib
-stable in SR on amiodarone
-cont Eliquis
#CAD:
-known complex CAD and in past was not a CABG candidate
-cont ASA, atorvastatin and coreg
Other problems:
DM2: Cont Lantus/SSI/accuchecks/diabetic diet currently on L6u hs, N 3u ac monitor sugars closely
GERD: Cont pantoprazole
Hypothyroidism: Cont Levoxyl
Obesity due to excess calories
Present on admission Bilateral heel Pressure injury stage 1
FULL/Eliquis - Will need to readdress
Time spent coordinating care, review of plan of care with resident, personally reviewed records in EMR, med rec, consults, notes, labs, radiology, d/w nursing � 56 mins
Original Note:
Today's Communication/Plan
-
Continue current management
Potential IV lasix transition to po
PT/OT
Assessment / Plan
Assessment / Plan
79 y/o female with PAF on amiodarone and Eliquis, CAD, h/o coronary stenting, EF 40-45%, DM, CKD3B, hypertension, mitral regurgitation, RUE DVT, Fall with ICH, UTI's/retention, who presented with SOB.
# Acute Hypoxemic Respiratory Failure 2/2 Acute on Chronic HFrEF
--improving
--On 2L today SaO2 in 90s (improving)
--Continue Lasix 80 mg BID; monitor BMP (CR1.5 this AM)
--Daily weights, I/Os, fluid restriction and low-Na diet; down 7kg since admission--Continue Coreg
--Not on SGLT2i due to recent UTI
--ECHO: LVEF 40%, global hypokinesis, PA pressure 25-30
--Entresto and MRA has been limited by BP and renal function in past-based on BP and Cr trend
--OT eval pending
--PT recs rehab at d/c
# Proximal atrial fibrillation�currently sinus and rate controlled.
--Continue Coreg 3.125mg bid
--Continue amiodarone 200 daily
--Continue all Eliquis 5 mg twice daily
--Keep K and mag greater than 4, 2 respectively
# Insulin-dependent diabetes
--Lantus 6 at bedtime, 3units ac (home dose)
--Insulin sliding scale ACHS
#Chronic indwelling [place] catheter
Will continue PPI, levothyroxine
DVT prophylaxis�on Eliquis
CODE STATUS�full code
Anticipated Discharge: 24 - 48 hours
Subjective/Interval History
-
Date of Service: September 18, 2024
No new complaints
Objective Data
-
Labs:
Laboratory Results
09/18/24
07:10
Sodium 137
Potassium 4.0
Chloride 94 L
Carbon Dioxide 35 H
BUN 46 H
Creatinine 1.5 H
Glucose 157 H
Calcium 9.6
Vital Signs:
Vital Signs
Temp Pulse Resp BP Pulse Ox
97.6 F 52 18 111/47 96
09/18/24 15:23 09/18/24 15:23 09/18/24 15:23 09/18/24 15:23 09/18/24 15:23
I&O
09/17/24 09/18/24 09/19/24
06:59 06:59 06:59
Intake Total 790 / 790 1080 / 1080
Output Total 1720 / 1720 2250 / 2250
Balance -930 / -930 -1170 / -1170
Review of Systems
-
History Source: Patient
Constitutional: Reports No Symptoms
Respiratory: Reports No Symptoms
Cardiac: Reports No Symptoms
Musculoskeletal: Reports No Symptoms
Neuro: Reports No Symptoms
Physical Exam
-
General: Well Nourished, No Apparent Distress and Comfortable
HEENT: Normocephalic and Atraumatic
Respiratory: Crackles (B/L) and Non Labored Respirations
Cardiac: Regular Rhythm and S1/S2
GI: Soft and Nontender
Musculoskeletal: No Clubbing, No Cyanosis and Other (trace edema)
Skin: Warm
Neuro: Awake and Alert
Psych: Calm
Data Reviewed
-
Diagnostic Radiology: Report Reviewed by me
Labs: Labs Reviewed by me, Discussed with Physician and Discussed with Patient
[2024-09-18 17:07] LABS: Glucose - Point of Care 180 mg/dl (70-99)
[2024-09-18] MEDS: DEPAKOTE (12 HR RELEASE) 500 MG PO (17:55)
[2024-09-18] MEDS: FOLVITE 1 MG PO (21:47)
[2024-09-18] MEDS: TYLENOL 650 MG PO (21:47)
[2024-09-18 22:09] LABS: Glucose - Point of Care 146 mg/dl (70-99)
[2024-09-19] VITALS (9 sets, daily range): BP systolic 96–136; BP diastolic 42–98; PULSE 2–50; O2SAT 98; BMI 29.2
[2024-09-19 07:09] LABS: Glucose - Point of Care 163 mg/dl (70-99)
--- NOTE | 2024-09-19 07:45 | W.PN.HOSP.TC ---
Addendum entered and electronically signed by Mingo Juarez MD 09/19/24 20:45:
Attending Addendum-
I saw and evaluated the patient. I reviewed the resident�s note and agree with findings and plan as documented in the resident�s note. Sub: required BiPAP overnight for unclear reasons. Patient feels weak and mildly SOB. Also had bradycardia
overnight. Denies CP palps. Full 12 point ROS reviewed and negative except as documented Exam: Vitals reviewed in chart GEN-NAD heart RRR no murmurs lungs crackles at bases b/l abd soft NT LE trace b/l LE edema Law[place] in place draining clear
yellow urine
Plan:
# ICM, EF 40%, Ibqqx-mv-gttrmky HFmEF
-New acceptable dry weight 70kg->72kg
-echo 09/15/24: EF 40%, Stage I DD, mild MR
-transition lasix 80mg IV bid to 80 daily in am
-not on SGLT2 due to UTI
-DC Coreg due to bradycardia
- T/C entresto on DC
# Chronic Indwelling [place]
- continue
- f/u with uro as OP
#Acute hypoxemic respiratory failure due to acute on chronic HFmEF:
- was on BIPAP, now weaned to 2L NC O2 (not on O2 at home)
- attempted to wean off o2 but failed
- cxr 09/19-reviewed- small pleural effusions
- DC to SNF on O2 and wean at facility
#AR on CKD3b
-resolved
-baseline @ 1.5
-cont trend
#Paroxysmal AFib
-stable in SR on amiodarone
-cont Eliquis
-DC coreg
#CAD:
-known complex CAD and in past was not a CABG candidate
-cont ASA, atorvastatin dc coreg
# Bradycardia
- not a pacer candidate
- DC coreg
Other problems:
DM2: Cont Lantus/SSI/accuchecks/diabetic diet currently on L6u hs, N 3u ac monitor sugars closely
GERD: Cont pantoprazole
Hypothyroidism: Cont Levoxyl
Obesity due to excess calories
Present on admission Bilateral heel Pressure injury stage 1
FULL/Eliquis
Dispo DC to SNF in am
Time spent coordinating care, review of plan of care with resident, personally reviewed records in EMR, med rec, consults, notes, labs, radiology, d/w nursing � 53 mins
Original Note:
Today's Communication/Plan
-
d/c coreg per cardio due to heart rate in 40s and lower 50s
Transition to p.o. Lasix tomorrow
Wean supplemental O2 if tolerated
Assessment / Plan
Assessment / Plan
79 y/o female with PAF on amiodarone and Eliquis, CAD, h/o coronary stenting, EF 40-45%, DM, CKD3B, hypertension, mitral regurgitation, RUE DVT, Fall with ICH, UTI's/retention, who presented with SOB.
# Acute Hypoxemic Respiratory Failure 2/2 Acute on Chronic HFrEF
--improved
--on 2L NC o2
--not on O2 at home wean for O2 sat >92%; if not will require home o2 assessment
--Transition to Lasix 80 mg Daily tomorrow; monitor BMP (CR1.4 this AM)
--Daily weights, I/Os, fluid restriction and low-Na diet; down 7kg since admission
--d/c Coreg by cardio due to bradycardia
--Not on SGLT2i due to recent UTI
--ECHO: LVEF 40%, global hypokinesis, PA pressure 25-30
--Entresto and MRA has been limited by BP and renal function in past-based on BP and Cr trend
--PT recs rehab at d/c
--Repeat cxr today: Small bilateral pleural effusions
# AR on CKD 3b
--resolved(baseline 1.5)
# Proximal atrial fibrillation�currently sinus and rate controlled.
--d/c Coreg 3.125mg bid
--Continue amiodarone 200 daily
--Continue all Eliquis 5 mg twice daily
# Insulin-dependent diabetes
--Lantus 6 at bedtime, 3units ac (home dose)
--Insulin sliding scale ACHS
#CAD:
-- known h/o of complex CAD; was not a CABG candidate
--cont ASA, atorvastatin and coreg
#Chronic indwelling [place] catheter
Will continue PPI, levothyroxine
DVT prophylaxis�on Eliquis
CODE STATUS�full code
Anticipated Discharge: Within 24 hours
Subjective/Interval History
-
Date of Service: September 19, 2024
Offers no new complaints
Objective Data
-
Labs:
Laboratory Results
09/19/24
06:00
WBC Pending
Hgb Pending
Hct Pending
Plt Count Pending
Sodium Pending
Potassium Pending
Chloride Pending
Carbon Dioxide Pending
BUN Pending
Creatinine Pending
Glucose Pending
Calcium Pending
Vital Signs:
Vital Signs
Temp Pulse Resp BP Pulse Ox
97.8 F 50 16 106/77 96
09/19/24 02:15 09/19/24 02:15 09/19/24 02:15 09/19/24 02:15 09/19/24 02:15
I&O
09/18/24 09/19/24 09/20/24
06:59 06:59 06:59
Intake Total 1080 / 1080 1200 / 1200
Output Total 2250 / 2250 2250 / 2250
Balance -1170 / -1170 -1050 / -1050
Review of Systems
-
History Source: Patient
Constitutional: Reports No Symptoms
Respiratory: Reports Trouble Breathing
Cardiac: Reports No Symptoms
Musculoskeletal: Reports No Symptoms
Neuro: Reports No Symptoms
Physical Exam
-
General: Well Nourished, No Apparent Distress and Comfortable
HEENT: Normocephalic and Atraumatic
Respiratory: Crackles (B/L) and Non Labored Respirations
Cardiac: Regular Rhythm and S1/S2
GI: Soft and Nontender
Musculoskeletal: No Clubbing, No Cyanosis and No Edema
Skin: Warm
Neuro: Awake and Alert
Psych: Calm
Data Reviewed
-
Diagnostic Radiology: Image personally visualized and interpreted and Report Reviewed by me
Labs: Labs Reviewed by me, Discussed with Physician and Discussed with Patient
--- NOTE | 2024-09-19 08:23 | W.PN.CD ---
Today's Communication / Plan
-
-
Stop Coreg b/c asymptomatic SB in the high 40s
CXR vs u/S and thoracentesis if signif residual pleural effusion
Dry weight had been 70kg, seems like we may need to accept 72 kg
Lets move to Lasix 80 mg PO one time daily
55 min spent with pt this AM
Impression / Plan
-
Sinus bradycardia
- On Amio 200 daily and Coreg 3.125 BID HR in mid 40s at rest
- Will stop Coreg
- If Coreg needed for ongoing treatment of HFimpEF then cardiac pacing may be needed
O2 requirement at nigth
-discussed with hospitalist
-CXR vs u/S and thoracentesis if signif residual pleural effusion
ICM, EF 40%, Luhgv-wc-iwkabms HFmEF: improving
-Recent Lasix decrease. Weight was up significantly since last admit.
-Dry weight had been 70kg, seems like we may need to accept 72 kg
-Lets move to Lasix 80 mg PO one time daily
-not on SGLT2i due to UTI
-Coreg is at 3.125mg bid => will stop for signif SB
-Entresto and MRA has been limited by BP and renal function in past -based on BP and Cr trend, we can assess to add Entresto before d/c; case mgmt consult placed
CKD3a: trend with diuresis
Parox AFib, in sinus on Amio 200 daily, on Eliquis
CAD, prior LM PCI (Impella supported 2019), Med Rx CAD based on cath 01/12/2024 (see below). For now given remote LM PCI she is on ASA+Eliquis
Chronic anemia
Chronic [place] catheter
Subjective:
Need bipap last night for low O2. No c/o CP or dyspnea
Data:
- Echo 09/15/24: EF 40%, Stage I DD, mild MR, nl RV, mild TR, PASP 30
- Last cath 01/12/2024: patent LM stent, 100% pRCA, diffuse dz D2, diffuse dz ramus, 40% OM2, 30% mLAD, dilated LV, LVEF 30%, severe MR, LVEDP 30 at 64 kg A wave to 45.
Physical Exam
Vital Signs/Labs
Vital Signs
Temp Pulse Resp BP Pulse Ox
97.1 F 53 20 117/46 98
09/19/24 07:00 09/19/24 07:00 09/19/24 07:00 09/19/24 07:00 09/19/24 07:00
09/18/24 09/19/24 09/20/24
06:59 06:59 06:59
Actual Weight 72.773 kg 72.235 kg
Magnesium 1.7 mg/dl (1.6-2.3) 09/14/24 06:10
09/13/24
22:43
Yyo-P-Ubkbpcrmorx Pept
Physical Exam
Constitutional: No acute distress
EENT: Anicteric
Cardiovascular: Rhythm & rate is regular and Pedal edema is absent
Respiratory: Respiratory effort normal and Lungs clear to auscul. (but decrease at base)
GI: Soft and Distention absent
Data Reviewed
-
Date of Service: September 19, 2024
[2024-09-19] MEDS: LANTUS 0.06 UNITS SC (08:25)
[2024-09-19] MEDS: NOVOLOG FLEXPEN 3 UNITS SC ×3 (08:27→17:13)
[2024-09-19] MEDS: NOVOLOG FLEXPEN-LOW RESISTANCE 1 UNITS SC ×3 (08:27→17:13)
[2024-09-19] MEDS: PROTONIX 40 MG PO (08:28)
[2024-09-19] MEDS: MAGNESIUM OXIDE 500 MG PO (08:28)
[2024-09-19] MEDS: FEOSOL 325 MG PO (08:28)
[2024-09-19] MEDS: CYMBALTA DELAYED RELEASE 30 MG PO (08:29)
[2024-09-19] MEDS: LIPITOR 40 MG PO (08:29)
[2024-09-19] MEDS: DETROL 2 MG PO (08:29)
[2024-09-19] MEDS: ELIQUIS 5 MG PO ×2 (08:29→20:25)
[2024-09-19] MEDS: NEURONTIN 200 MG PO ×3 (08:29→21:10)
[2024-09-19] MEDS: ASPIR LOW (ENTERIC COATED) 81 MG PO (08:29)
[2024-09-19] MEDS: PACERONE 200 MG PO (08:30)
[2024-09-19] MEDS: DESENEX/MITRAZOL/ZEASORB 1 APPLIC TOPICAL ×2 (08:30→20:27)
[2024-09-19] MEDS: SYNTHROID 125 MCG PO (08:31)
[2024-09-19] MEDS: LASIX 80 MG IV (08:31)
[2024-09-19 09:07] LABS: Hematocrit 30.1 % (37.0-47.0); Hemoglobin 9.9 g/dL (12.0-16.0); Mean Corp Hgb Conc. 32.9 g/dL (33.0-37.0); Mean Corpuscular Hgb 28.9 pg (27.0-31.0); Mean Corpuscular Volume 87.8 fL (81.0-99.0); Mean Platelet Volume 10.7 fL (7.4-10.4); Platelet Count 269 10^3/uL (130-400); Red Blood Cell Count 3.43 10^6/uL (4.20-5.40); Red Cell Dist. Width 15.3 % (11.5-14.5); White Blood Cell Count 8.2 10^3/uL (4.8-10.8)
[2024-09-19 09:34] LABS: Blood Urea Nitrogen 51 mg/dl (7-17); Calcium 9.5 mg/dl (8.4-10.2); Carbon Dioxide 39 mmol/L (22-30); Chloride 92 mmol/L (98-107); Estimated Creatinine Clearance 31 ml/min; Glucose 138 mg/dl (70-99); Potassium 3.9 mmol/L (3.5-5.1); Sodium 137 mmol/L (135-145); eGFR 38.75
[2024-09-19] MEDS: COREG PO (09:38)
[2024-09-19 11:50] LABS: Glucose - Point of Care 193 mg/dl (70-99)
[2024-09-19 17:05] LABS: Glucose - Point of Care 193 mg/dl (70-99)
[2024-09-19] MEDS: DEPAKOTE (12 HR RELEASE) 500 MG PO (17:12)
[2024-09-19] MEDS: FOLVITE 1 MG PO (21:10)
[2024-09-19 21:18] LABS: Glucose - Point of Care 271 mg/dl (70-99)
[2024-09-20] VITALS (9 sets, daily range): BP systolic 88–132; BP diastolic 46–90; PULSE 2–58; BMI 28.9
[2024-09-20 07:11] LABS: Glucose - Point of Care 199 mg/dl (70-99)
--- NOTE | 2024-09-20 07:29 | W.PN.HOSP.TC ---
Addendum entered and electronically signed by Mingo Juarez MD 09/20/24 20:25:
Attending Addendum-
I saw and evaluated the patient. I reviewed the resident�s note and agree with findings and plan as documented in the resident�s note. Sub: BiPAP ordered overnight for unclear reasons. Patient feels improved but complains if left felton pain. Denies
CP palps. Full 12 point ROS reviewed and negative except as documented Exam: Vitals reviewed in chart GEN-NAD heart RRR no murmurs lungs crackles at bases b/l abd soft NT LE trace b/l LE edema Law[place] in place draining clear yellow urine Left felton
skin tear with surrounding redness not cellulitis
Plan:
# ICM, EF 40%, Atzqj-ss-oqplboe HFmEF
-dry weight @ 70kg now 71kg
-echo 09/15/24: EF 40%, Stage I DD, mild MR
-transitioned IV lasix to 80 PO daily
-DC Coreg due to bradycardia
-T/C entresto/SGLT2 on DC
# Chronic Indwelling [place]
- continue
- f/u with uro as OP
#Acute hypoxemic respiratory failure due to acute on chronic HFmEF:
- resolved
- DC standing order for BIPAP q hs
- doesnt require o2 per home 02 eval
- cxr 09/19-reviewed- small pleural effusions
- DC to SNF when able
#AR on CKD3b
-resolved
-baseline @ 1.5
-cont trend
#Left Fel[place] Wound/Hematoma/Skin Tear
- unclear if POA
- wound care input appreciated
- c/s surgery for eval per wound care
#Paroxysmal AFib
-stable in SR on amiodarone
-cont Eliquis
-DC coreg
#CAD:
-known complex CAD and in past was not a CABG candidate
-cont ASA, atorvastatin dc coreg
# Bradycardia
- T/C pacer to allow use of coreg if needed, OP follow up set up
- DC coreg
Other problems:
DM2: Cont Lantus/SSI/accuchecks/diabetic diet currently on L6u hs, N 3u ac monitor sugars closely
GERD: Cont pantoprazole
Hypothyroidism: Cont Levoxyl
Obesity due to excess calories
Present on admission Bilateral heel Pressure injury stage 1
FULL/Eliquis
Dispo DC to SNF/[facility] in am
Time spent coordinating care, review of plan of care with resident, personally reviewed records in EMR, med rec, consults, notes, labs, radiology, d/w nursing cards and CM � 54 mins
Original Note:
Today's Communication/Plan
-
DC to SNF on O2 and wean at facility : Awaiting bed availability
Continue Lasix 80 mg p.o. daily
BMP in 1 week
Follow-up with wound care center outpatient for left leg hematoma
Assessment / Plan
Assessment / Plan
79 y/o female with PAF on amiodarone and Eliquis, CAD, h/o coronary stenting, EF 40-45%, DM, CKD3B, hypertension, mitral regurgitation, RUE DVT, Fall with ICH, UTI's/retention, who presented with SOB.
# Acute Hypoxemic Respiratory Failure 2/2 Acute on Chronic HFrEF
--improved
--on 2L NC o2
--not on O2 at home wean for O2 sat >92%; check home o2 assessment
--Transition to Lasix 80 mg Daily today; monitor BMP in 1 week
--Daily weights, I/Os, fluid restriction and low-Na diet; down 7kg since admission
--d/c Coreg by cardio due to bradycardiam on 09/19/24
--Not on SGLT2i due to recent UTI
--ECHO: LVEF 40%, global hypokinesis, PA pressure 25-30
--Entresto and MRA has been limited by BP and renal function in past
--PT recs rehab at d/c
--Repeat cxr 09/19/24: Small bilateral pleural effusions
# AR on CKD 3b
--resolved(baseline 1.5)
# Left leg hematoma
--Present on admission
--Appears black eschar with raised dull red boggy skin.
--Discussed with general surgery
--Recommend Santyl ointment and follow-up with wound care center outpatient
# Proximal atrial fibrillation�currently sinus and rate controlled.
--d/c Coreg 3.125mg bid because of bradycardia
--Continue amiodarone 200 daily
--Continue all Eliquis 5 mg twice daily
# Insulin-dependent diabetes
--Lantus 6 at bedtime, 3units ac (home dose)
--Insulin sliding scale ACHS
#CAD:
-- known h/o of complex CAD; was not a CABG candidate
--cont ASA, atorvastatin and coreg
#Chronic indwelling [place] catheter
Will continue PPI, levothyroxine
DVT prophylaxis�on Eliquis
CODE STATUS�full code
Anticipated Discharge: Today
Subjective/Interval History
-
Date of Service: September 20, 2024
Offers no new complain.
Objective Data
-
Labs:
Laboratory Results
09/20/24
06:00
WBC Pending
Hgb Pending
Hct Pending
Plt Count Pending
Sodium Pending
Potassium Pending
Chloride Pending
Carbon Dioxide Pending
BUN Pending
Creatinine Pending
Glucose Pending
Calcium Pending
Vital Signs:
Vital Signs
Temp Pulse Resp BP Pulse Ox
98.6 F 46 18 108/51 95
09/20/24 03:00 09/20/24 03:00 09/20/24 03:00 09/20/24 03:00 09/20/24 03:00
I&O
09/19/24 09/20/24 09/21/24
06:59 06:59 06:59
Intake Total 1200 / 1200 960 / 960
Output Total 2250 / 2250 1350 / 1350
Balance -1050 / -1050 -390 / -390
Review of Systems
-
History Source: Patient
Constitutional: Reports No Symptoms
Respiratory: Reports No Symptoms
Cardiac: Reports No Symptoms
Musculoskeletal: Reports No Symptoms
Neuro: Reports No Symptoms
Physical Exam
-
General: Well Nourished, No Apparent Distress and Comfortable
HEENT: Normocephalic and Atraumatic
Respiratory: Non Labored Respirations (On O2 nasal cannula 2 L)
Cardiac: Regular Rhythm and S1/S2
GI: Soft and Nontender
Musculoskeletal: No Clubbing, No Cyanosis, No Edema and Other (Left leg hematoma below-knee)
Skin: Warm
Neuro: Awake and Alert
Psych: Calm
Data Reviewed
-
Labs: Labs Reviewed by me, Discussed with Physician and Discussed with Patient
[2024-09-20 09:06] LABS: Hematocrit 30.9 % (37.0-47.0); Hemoglobin 9.9 g/dL (12.0-16.0); Mean Corpuscular Hgb 28.9 pg (27.0-31.0); Mean Corpuscular Volume 90.1 fL (81.0-99.0); Mean Platelet Volume 10.7 fL (7.4-10.4); Platelet Count 262 10^3/uL (130-400); Red Blood Cell Count 3.43 10^6/uL (4.20-5.40); Red Cell Dist. Width 15.5 % (11.5-14.5); White Blood Cell Count 8.1 10^3/uL (4.8-10.8)
--- NOTE | 2024-09-20 09:15 | W.PN.CD ---
Today's Communication / Plan
-
continue lasix 80mg PO daily
BMP in one week
coreg stopped this admission
stable from cardiac perspective for discharge planning
we will call her for f/u appt
please call us with additional questions
Impression / Plan
-
Sinus bradycardia
- stopped Coreg this admission
- If Coreg needed for ongoing treatment of HFimpEF then cardiac pacing may be needed
O2 requirement at night
-per hospitalist
ICM, EF 40%, Hjkro-iq-gxjnvof HFmEF: improving
-Recent Lasix decrease. Weight was up significantly since last admit.
-Dry weight had been 70kg, seems like we may need to accept 71-72 kg
-cont Lasix 80 mg PO one time daily
-not on SGLT2i due to UTI
-Coreg stopped for bradycardia
-Entresto: copay is high
CKD3a: trend with diuresis, Cr ranges 1.4-1.5
Parox AFib, in sinus on Amio 200mg daily, on Eliquis 5mg bid
CAD, prior LM PCI (Impella supported 2019), Med Rx CAD based on cath 01/12/2024 (see below). For now given remote LM PCI she is on ASA+Eliquis
Chronic anemia
Chronic [place] catheter
Subjective:
stable, feels better
Data:
- Echo 09/15/24: EF 40%, Stage I DD, mild MR, nl RV, mild TR, PASP 30
- Last cath 01/12/2024: patent LM stent, 100% pRCA, diffuse dz D2, diffuse dz ramus, 40% OM2, 30% mLAD, dilated LV, LVEF 30%, severe MR, LVEDP 30 at 64 kg A wave to 45.
Physical Exam
Vital Signs/Labs
Vital Signs
Temp Pulse Resp BP Pulse Ox
97.4 F 59 20 120/90 96
09/20/24 07:00 09/20/24 07:00 09/20/24 07:00 09/20/24 07:00 09/20/24 07:00
09/19/24 09/20/24 09/21/24
06:59 06:59 06:59
Actual Weight 72.235 kg 71.622 kg
09/20/24 08:16
Magnesium 1.7 mg/dl (1.6-2.3) 09/14/24 06:10
09/13/24
22:43
Ktn-D-Qkiyjqekvnn Pept
Physical Exam
Constitutional: No acute distress and Comfortable
EENT: Moist mucous membranes
Cardiovascular: Rhythm & rate is regular, Pedal edema is absent, JVD pressure is normal and Systolic murmur present
Respiratory: Respiratory effort normal and Lungs clear to auscul.
Neuro/Psych: AO x 3
Data Reviewed
-
Date of Service: September 20, 2024
EKG: Other (Tele: SB, PAC's)
Labs: Labs Reviewed by me
[2024-09-20 09:45] LABS: Blood Urea Nitrogen 54 mg/dl (7-17); Carbon Dioxide 39 mmol/L (22-30); Chloride 89 mmol/L (98-107); Estimated Creatinine Clearance 29 ml/min; Glucose 173 mg/dl (70-99); Potassium 3.8 mmol/L (3.5-5.1); Sodium 136 mmol/L (135-145); eGFR 35.67
[2024-09-20] MEDS: NOVOLOG FLEXPEN 3 UNITS SC ×3 (09:59→16:53)
[2024-09-20] MEDS: NOVOLOG FLEXPEN-LOW RESISTANCE 1 UNITS SC (09:59)
[2024-09-20] MEDS: LANTUS 0.06 UNITS SC (10:00)
[2024-09-20] MEDS: ELIQUIS 5 MG PO ×2 (10:01→20:06)
[2024-09-20] MEDS: SYNTHROID 125 MCG PO (10:01)
[2024-09-20] MEDS: MAGNESIUM OXIDE 500 MG PO (10:01)
[2024-09-20] MEDS: PROTONIX 40 MG PO (10:01)
[2024-09-20] MEDS: CYMBALTA DELAYED RELEASE 30 MG PO (10:01)
[2024-09-20] MEDS: PACERONE 200 MG PO (10:01)
[2024-09-20] MEDS: DETROL 2 MG PO (10:01)
[2024-09-20] MEDS: LIPITOR 40 MG PO (10:02)
[2024-09-20] MEDS: ASPIR LOW (ENTERIC COATED) 81 MG PO (10:02)
[2024-09-20] MEDS: FEOSOL 325 MG PO (10:02)
[2024-09-20] MEDS: LASIX 80 MG PO (10:02)
[2024-09-20] MEDS: NEURONTIN 200 MG PO ×3 (10:02→21:34)
--- NOTE | 2024-09-20 10:57 | WOUNDNOTE ---
R GREAT TOE TIP
--- NOTE | 2024-09-20 10:58 | WOUNDNOTE ---
L GREAT TOE TIP
--- NOTE | 2024-09-20 10:58 | WOUNDNOTE ---
L LEROY JUST DISTAL TO KNEE
--- NOTE | 2024-09-20 10:59 | WOUNDNOTE ---
L LEROY JUST DISTAL TO KNEE
--- NOTE | 2024-09-20 11:22 | WOUNDNOTE ---
[facility] RN note: Patient seen during pressure injury prevention rounds. Patient admitted 09/15/24 with CHF exacerbation. Plan is SNF rehab as early as today.
See H&P for complete history.
PMH: CHF, OK, CKD3, fall from her wheelchair on 08/30/24 as per daughter and LLE bypass within the last 5 years done at [facility] as per daughter, UTI, colitis, R arm DVT, A fib (Eliquis), fibromyalgia, subdural hematoma, CVA.
Wound Location and type/assessment: Patient admitted with: L leg hematoma just below the L knee, appearance black eschar with raised dull red boggy skin just medial to eschar. Suspect full thickness wound under eschar. Patient reports area is
painful. L great distal toe dry scab suspect r/t trauma with history of PAD. R great distal toe dry callus. Pedal pulses heard via portable Doppler. Sacral/coccyx crease MASD. Skin on heels intact (blanchable mild red). L medial posterior calf
resolving bruise. L anterior ankle scabbed abrasion.
Appetite: good.
Pressure redistribution devices in place: Static air overlay. Patient needs assistance to turn in bed. PT/OT helped get patient out of bed to recliner chair.
Plan: Air chair cushion placed in recliner chair. LLE silicone border foam changed. R heel foam dressing changed. Silicone border foam maintained on sacral/coccyx.
Updated including appearance and picture of L leg hematoma/eschar with boggy raised dull red skin next to it, asking to consider surgeon evaluation to hospitalist resident Dr. Barragan; resident approved local wound care. Update LUNA Combs.
Updated care plan and will follow as needed.
Note to case management of equipment requested for discharge: Air mattress recommended. Discussed with ANGELITO Kaur.
Recommend follow up at wound care center upon discharge.
[2024-09-20 11:43] LABS: Glucose - Point of Care 274 mg/dl (70-99)
--- NOTE | 2024-09-20 12:10 | CM ---
Addendum entered by Sweta Kaur 09/20/24 15:59:
Patient does not qualify for home O2.
Addendum entered by Sweta Kaur 09/20/24 14:38:
[facility] able to offer patient a bed, daughter agreeable to move forward with authorization. [facility] to [facility], faxed to [phone], reference number [id number]. Patient new to O2, will require ambulance transport to
facility.
Plan; [facility], awaiting [facility] Auth, will need ambulance transport.
Original Note:
CM reviewed chart, per [facility], unable to accept patient, do not accept patients insurance. Spoke with Minda in admissions at [facility], no beds until next week. CM spoke with patients daughter, additional referrals placed to [facility] and
[facility]. Patient will need insurance auth once bed found. CM spoke with patients prescription coverage ([employer]) cost of Entresto 24/26mg bid, $467 through [facility] for a 30 day supply, $551 through [employer] delivery 100 day supply. CM will
continue to follow for all discharge planning needs.
Plan; SNF pending accepting facility, will require auth.
--- NOTE | 2024-09-20 12:56 | WOUNDNOTE ---
[facility] RN Note: Confirmed to change wound care order to Santyl instead of honey gel for L distal knee wound after Dr. Barragan communicated with Dr. Samuel. Plan is Santyl ointment and patient to follow up at [facility]. Care plan and discharge instructions
updated.
[2024-09-20] MEDS: NOVOLOG FLEXPEN-LOW RESISTANCE 3 UNITS SC (14:11)
[2024-09-20] MEDS: DESENEX/MITRAZOL/ZEASORB 1 APPLIC TOPICAL ×2 (14:11→20:04)
[2024-09-20] MEDS: DEPAKOTE (12 HR RELEASE) 500 MG PO (16:52)
[2024-09-20] MEDS: NOVOLOG FLEXPEN-LOW RESISTANCE 4 UNITS SC (16:52)
[2024-09-20] MEDS: TYLENOL 650 MG PO (20:08)
[2024-09-20 21:09] LABS: Glucose - Point of Care 217 mg/dl (70-99)
[2024-09-20] MEDS: FOLVITE 1 MG PO (21:34)
[2024-09-21 03:00] VITALS: BP 134/68
[2024-09-21 03:21] VITALS: PULSE 2
[2024-09-21] MEDS: SANTYL OINTMENT 1 APPLIC TOPICAL (04:36)
[2024-09-21 05:52] VITALS: BMI 29.8
--- NOTE | 2024-09-21 07:28 | W.PN.HOSP.TC ---
Addendum entered and electronically signed by Mingo Juarez MD 09/21/24 23:32:
Attending Addendum-
I saw and evaluated the patient. I reviewed the resident�s note and agree with findings and plan as documented in the resident�s note. Sub: Patient feels improved. Ready to start rehab. Denies CP palps. Full 12 point ROS reviewed and negative except
as documented Exam: Vitals reviewed in chart GEN-NAD heart RRR no murmurs lungs fine crackles at bases b/l abd soft NT LE trace b/l LE edema Lawton in place draining clear yellow urine Left felton skin tear with surrounding redness not cellulitis
Plan:
# ICM, EF 40%, [id number] HFmEF
-dry weight @ 70kg now 71kg
-echo 09/15/24: EF 40%, Stage I DD, mild MR
-transitioned IV lasix to 80 PO daily
-DC Coreg due to bradycardia
-T/C entresto/SGLT2 at rehab
# Chronic Indwelling Lawton
- continue
- f/u with uro as OP
#Acute hypoxemic respiratory failure due to acute on chronic HFmEF:
- resolved
- DC standing order for BIPAP q hs
- doesnt require o2 per home 02 eval
- cxr 09/19-reviewed- small pleural effusions
- DC to SNF
#AR on CKD3b
-resolved
-baseline @ 1.5
-cont trend
#Left Felton Wound/Hematoma/Skin Tear
- unclear if POA
- wound care input appreciated
- surgery eval appreciated ok for DC and f/u wound care at at [facility]
#Paroxysmal AFib
-stable in SR on amiodarone
-cont Eliquis
-DC coreg
#CAD:
-known complex CAD and in past was not a CABG candidate
-cont ASA, atorvastatin dc coreg
# Bradycardia
- T/C pacer to allow use of coreg if needed, OP follow up set up
- DC coreg
Other problems:
DM2: Cont Lantus/SSI/accuchecks/diabetic diet currently on L6u hs, N 3u ac monitor sugars closely
GERD: Cont pantoprazole
Hypothyroidism: Cont Levoxyl
Obesity due to excess calories
Present on admission Bilateral heel Pressure injury stage 1
FULL/Eliquis
Dispo DC to SNF/[facility]
Time spent coordinating care, DC planning, review of DC plan of care with resident, transition of care, review of records, med rec/scripts sent electronically, consults, notes, d/w consultants, nursing, and CM� 33 mins
Original Note:
Today's Communication/Plan
-
Discharge to [facility], awaiting [facility] Auth
Assessment / Plan
Assessment / Plan
79 y/o female with PAF on amiodarone and Eliquis, CAD, h/o coronary stenting, EF 40-45%, DM, CKD3B, hypertension, mitral regurgitation, RUE DVT, Fall with ICH, UTI's/retention, who presented with SOB.
# Acute Hypoxemic Respiratory Failure 2/2 Acute on Chronic HFrEF
--improved
--on 2L NC o2
--not on O2 at home wean for O2 sat >92%; does not qualify for home oxygen on home o2 assessment
--Transition to Lasix 80 mg Daily ; monitor BMP in 1 week
--Daily weights, I/Os, fluid restriction and low-Na diet
--d/c Coreg by cardio due to bradycardiam on 09/19/24
--Not on SGLT2i due to recent UTI
--ECHO: LVEF 40%, global hypokinesis, PA pressure 25-30
--Entresto and MRA has been limited by BP and renal function in past
--PT recs rehab at d/c
--Repeat cxr 09/19/24: Small bilateral pleural effusions
# AR on CKD 3b
--resolved(baseline 1.5)
# Left leg hematoma
--Present on admission
--Appears black eschar with raised dull red boggy skin.
--Discussed with general surgery
--Recommend Santyl ointment and follow-up with wound care center outpatient
# Proximal atrial fibrillation�currently sinus and rate controlled.
--d/c Coreg 3.125mg bid because of bradycardia
--Continue amiodarone 200 daily
--Continue all Eliquis 5 mg twice daily
# Insulin-dependent diabetes
--Lantus 6 at bedtime, 3units ac (home dose)
--Insulin sliding scale ACHS
#CAD:
-- known h/o of complex CAD; was not a CABG candidate
--cont ASA, atorvastatin and coreg
#Chronic indwelling Lawton catheter
Will continue PPI, levothyroxine
[facility], awaiting [facility] Auth
DVT prophylaxis�on Eliquis
CODE STATUS�full code
Anticipated Discharge: Today
Subjective/Interval History
-
Date of Service: September 21, 2024
Offers no new complaints
Objective Data
-
Labs:
Laboratory Results
09/21/24
06:00
WBC Pending
Hgb Pending
Hct Pending
Plt Count Pending
Sodium Pending
Potassium Pending
Chloride Pending
Carbon Dioxide Pending
BUN Pending
Creatinine Pending
Glucose Pending
Calcium Pending
Vital Signs:
Vital Signs
Temp Pulse Resp BP Pulse Ox
98.1 F 93 18 134/68 97
09/21/24 03:00 09/21/24 03:00 09/21/24 03:00 09/21/24 03:00 09/21/24 03:00
I&O
02/08/0209/21/24 09/22/24
06:59 06:59 06:59
Intake Total 960 / 960 840 / 840
Output Total 1350 / 1350 1100 / 1100
Balance -390 / -390 -260 / -260
Review of Systems
-
History Source: Patient
Constitutional: Reports No Symptoms
Respiratory: Reports No Symptoms
Cardiac: Reports No Symptoms
Musculoskeletal: Reports No Symptoms
Neuro: Reports No Symptoms
Physical Exam
-
General: Well Nourished, No Apparent Distress and Comfortable
HEENT: Normocephalic and Atraumatic
Respiratory: Non Labored Respirations (On O2 nasal cannula 2 L)
Cardiac: Regular Rhythm and S1/S2
GI: Soft and Nontender
Musculoskeletal: No Clubbing, No Cyanosis, No Edema and Other (Left leg hematoma below-knee)
Skin: Warm
Neuro: Awake and Alert
Psych: Calm
Data Reviewed
-
Labs: Labs Reviewed by me, Discussed with Physician and Discussed with Patient
[2024-09-21 07:51] VITALS: BP 111/54
[2024-09-21 08:07] LABS: Hematocrit 31.7 % (37.0-47.0); Hemoglobin 10.6 g/dL (12.0-16.0); Mean Corp Hgb Conc. 33.4 g/dL (33.0-37.0); Mean Corpuscular Hgb 29.4 pg (27.0-31.0); Mean Corpuscular Volume 87.8 fL (81.0-99.0); Mean Platelet Volume 10.7 fL (7.4-10.4); Platelet Count 253 10^3/uL (130-400); Red Blood Cell Count 3.61 10^6/uL (4.20-5.40); Red Cell Dist. Width 15.3 % (11.5-14.5); White Blood Cell Count 7.8 10^3/uL (4.8-10.8)
[2024-09-21 08:24] LABS: Glucose - Point of Care 179 mg/dl (70-99)
[2024-09-21 08:36] LABS: Blood Urea Nitrogen 62 mg/dl (7-17); Calcium 10.2 mg/dl (8.4-10.2); Carbon Dioxide 36 mmol/L (22-30); Chloride 91 mmol/L (98-107); Estimated Creatinine Clearance 32 ml/min; Glucose 171 mg/dl (70-99); Potassium 4.1 mmol/L (3.5-5.1); Sodium 137 mmol/L (135-145); eGFR 38.75
[2024-09-21] MEDS: NOVOLOG FLEXPEN-LOW RESISTANCE 1 UNITS SC (08:38)
[2024-09-21] MEDS: NOVOLOG FLEXPEN 3 UNITS SC ×2 (08:38→11:52)
[2024-09-21] MEDS: LANTUS 0.06 UNITS SC (08:39)
[2024-09-21] MEDS: ASPIR LOW (ENTERIC COATED) 81 MG PO (08:39)
[2024-09-21] MEDS: CYMBALTA DELAYED RELEASE 30 MG PO (08:39)
[2024-09-21] MEDS: FEOSOL 325 MG PO (08:39)
[2024-09-21] MEDS: ELIQUIS 5 MG PO (08:39)
[2024-09-21] MEDS: DETROL 2 MG PO (08:39)
[2024-09-21] MEDS: LASIX 80 MG PO (08:40)
[2024-09-21] MEDS: MAGNESIUM OXIDE 500 MG PO (08:40)
[2024-09-21] MEDS: LIPITOR 40 MG PO (08:40)
[2024-09-21] MEDS: PACERONE 200 MG PO (08:41)
[2024-09-21] MEDS: SYNTHROID 125 MCG PO (08:41)
[2024-09-21] MEDS: NEURONTIN 200 MG PO ×2 (08:41→15:03)
[2024-09-21] MEDS: PROTONIX 40 MG PO (08:41)
[2024-09-21] MEDS: DESENEX/MITRAZOL/ZEASORB 1 APPLIC TOPICAL (08:41)
[2024-09-21 11:31] VITALS: BP 101/73
[2024-09-21 11:49] LABS: Glucose - Point of Care 252 mg/dl (70-99)
[2024-09-21] MEDS: NOVOLOG FLEXPEN-LOW RESISTANCE 3 UNITS SC (11:52)
--- NOTE | 2024-09-21 12:50 | CM ---
CM placed call to [facility] to follow up on auth status. CM spoke w/ Dotty who shared auth has been approved
Auth approved beginning today, 09/21 NRD 09/25. Ref # [id number]. Facility to fax updates to [phone]
CM spoke w/ Miroslava/[facility] confirming bed today and shared auth information
CM updated pt's daughter and hospitalist
IMM reviewed, copy on chart
Pt will need ambulance transport, forms on chart
[facility]
Report: [phone]

Plan: [facility] today via ambulance
--- NOTE | 2024-09-21 14:58 | PTCARENOTE ---
pt refused hygiene 2x
pt will be discharged today and will do hygiene then
[2024-09-21 15:05] VITALS: BP 122/96
[2024-09-21] MEDS: NOVOLOG FLEXPEN-LOW RESISTANCE SC (17:38)
[2024-09-21] MEDS: NOVOLOG FLEXPEN SC (17:38)
[2024-09-21] MEDS: DEPAKOTE (12 HR RELEASE) 500 MG PO (17:39)
--- NOTE | 2024-09-21 17:56 | W.DCSUMMARY ---
Addendum entered and electronically signed by Mingo Juarez MD 09/21/24 23:33:
Read, reviewed, and agree. See same day progress note for additional details.
Zay Juarez MD
Original Note:
Documented by User: Blaze Barragan MD, Resident 09/21/24 18:20
Discharge Summary
Discharge Data
Date of Admission: 09/14/24
Date of Discharge: 09/21/24
-
Pending Results: No
Hospital Course
Discharging Physician : Blaze Barragan MD ; Mingo Juarez
Disposition : [facility]
Primary care physician : Gloria Allison
Principal Discharge diagnosis : Acute Hypoxemic Respiratory Failure 2/2 Acute on Chronic HFrEF
Chronic Discharge diagnosis : AR on CKD 3b, Left leg hematoma, Proximal atrial fibrillation, Insulin-dependent diabetes, CAD, Chronic indwelling Lawton catheter, Hypothyroidism, GERD
Hospital Course : 79-year-old female with past medical history significant for chronic ischemic heart disease with ischemic cardiomyopathy, JAN, GERD, proximal atrial fibrillation, insulin-dependent diabetes, hypothyroid, hypertension presented to
the Emergency Department from skilled nursing with shortness of breath. Patient was unable to provide much history due to her debilitated state. She was recently discharged from [place] and arrived at the skilled nursing on September 13. She was treated
for pneumonia at [place]. She had AR on arrival day at [place] and Lasix was held. She required supplemental oxygen during her hospital stay at [place]. she was also recently admitted at [place] with a urinary tract infection, at time of
discharge Lasix was decreased from 40-20 at [facility]. She arrived to the ER with moderate respiratory distress and accessory muscle use. She was immediately placed on BiPAP in the emergency department and started on neb treatment. Blood
pressure was 150/81 and she was afebrile with a temp of 98, she was satting 95% on BiPAP. Pulse was 58. Respiratory rate was 13. ECG showed a sinus bradycardia rate of 59. Troponin was negative. BNP was elevated at 20,700. She had a white
count of 7.9 hemoglobin 9.5 which is at baseline with normal platelet count. Electrolytes were unremarkable, bicarb was 31, creatinine was 1.1. Chest x-ray showed haziness throughout both lung reyes consistent with interstitial pulmonary edema.
No focal consolidations noted. ABG 7.36/53/29. She was admitted to the IMU and cardiology was consulted and echo was performed results below. Insulin sliding scale was also ordered during her stay at the hospital. Her chronic Lawton was
maintained during the duration of hospital stay. Farxiga was not added due to history of UTIs. She was given IV Lasix 80 mg twice daily initially which was later transitioned to Lasix 80 mg p.o. daily. She managed to lose 7 kg during his stay at
the hospital. Entresto and MRA has been limited by BP and renal function in past. Coreg was discontinued due to bradycardia. Creatinine was monitored daily and remained near the baseline of 1.5. She was also found to have left leg wound on
arrival Santyl splint was recommended and she was advised to follow-up with wound care upon discharge. She was evaluated by respiratory for home oxygen assessment. She did not qualify as her oxygen saturation remained around 90% on room air. She
was discharged in stable condition to [facility].
Important imaging findings : 09/13/24 CR Chest: Moderate right and mild left pleural effusions. Bilateral subsegmental atelectasis
09/19/24 CR Chest - Small bilateral pleural effusions.
Procedure findings : EKG: SINUS BRADYCARDIA
LEFT AXIS DEVIATION
INFERIOR INFARCT (CITED ON OR BEFORE 02-JAN-2024)
ANTEROLATERAL INFARCT (CITED ON OR BEFORE 17-MAY-2023)
ECHO 09/14/24 : Normal LV size with mild to moderately reduced systolic function.
LVEF is approximately 40% by visual estimation. Global hypokinesis.
Moderate concentric LVH. Stage I diastolic dysfunction suggestive of abnormal
relaxation.
Normal right ventricular size and function.
Dense posterior mitral annular calcification. Mild mitral regurgitation.
Estimated pulmonary artery pressure of 25-30 mmHg.
Compared to prior CLARA from February 07, 2024, no significant change.
Discharge Plan
-
Patient Disposition: Assisted/SNF
Discharge Diagnosis/Procedures: Acute Hypoxemic Respiratory Failure 2/2 Acute on Chronic HFrEF, AR on CKD 3b, Left leg hematoma, Proximal atrial fibrillation, Insulin-dependent diabetes, CAD, Chronic indwelling Lawton catheter, Hypothyroidism, GERD
Condition: Fair
Diet: Diabetic, Carb Controlled
Activity: As tolerated
Driving Restrictions: As prior to admission
Bathing Restrictions: None
Other Services: PT and OT
Activity Restrictions/Additional Instructions:
Wound Care Instructions
L leg wound (just distal to knee)-clean with saline or Vashe wound cleanser, Santyl ointment, silicone border foam, change daily and prn drainage.
Elevate heels off bed with pillow/s.
Pressure redistributing chair cushion.
Sacral/coccyx-clean with saline, silicone border foam, change q 2 days and prn loosened dressing. If foam ineffective, apply zinc barrier TID instead.
Evaluate for air mattress.
Follow up at wound care center call for an appointment.
Instructions: *PCP/Other Room Attendant Heart Failure Instructions
Referrals:
AGATHA ROBINS MD [Non-Admitting Privileges] - in less than 1 week
Sweta Simon CRNP [Specified Professional Personl] - 10/06/24 11:20 am
Additional Discharge Medication Instructions: Discontinue coreg 3.125mg
Take Lasix 80mg 1 tab by mouth daily.
apply Santyl ointment everyday to the left leg wound.
Patient on 2L O2 NC. O2 saturation drop from 93% to 90% on room air so she does not qualify for home o2. However she is unable to ambulate at this time because of leg wound so ambulatory o2 status can not be checked. She might need o2 at facility if
O2 drop below 88% with ambulation.
BMP in 1 week
Prescriptions:
New
Santyl 250 unit/gram Ointment
1 applic topical DAILY Qty: 15 0RF
furosemide 80 mg Tablet
80 mg PO DAILY Qty: 30 0RF
Continued
atorvastatin [Lipitor] 40 mg Tablet
40 mg PO DAILY
divalproex 500 mg Tablet,Delayed Release (Dr/Ec)
500 mg PO HS
aspirin 81 mg Tablet,Delayed Release (Dr/Ec)
81 mg PO DAILY
vitamin B complex Tablet
1 tab PO DAILY
folic acid 1 mg Tablet
1 mg PO HS
Eliquis 5 mg Tablet
5 mg PO BID Qty: 0 0RF
amiodarone [Pacerone] 200 mg Tablet
200 mg PO DAILY Qty: 0 0RF
pantoprazole 40 mg Tablet,Delayed Release (Dr/Ec)
40 mg PO DAILY Qty: 0 0RF
cholecalciferol (vitamin D3) 50 mcg (2,000 unit) Tablet
50 mcg PO DAILY Qty: 0 0RF
magnesium oxide 400 mg magnesium Tablet
400 mg PO DAILY
ferrous sulfate 325 mg (65 mg iron) Tablet
325 mg PO DAILY
levothyroxine 125 mcg Tablet
125 mcg PO DAILY@06
gabapentin 100 mg Capsule
100 mg PO TID
Rx Instructions:
take for 7 dys from 09/13/24-09/20/24
insulin lispro [Humalog KwikPen Insulin] 100 unit/mL insulin pen
0 unit SC AC
Rx Instructions:
SLIDING SCALE inject as per sliding scale: if 0-199=0; 200-250=2; 251-300=3, 301-350=4; 351-400=5, 401-450= 6; 451-500=7; 501-999=0, subcutaneously before meals and at bedtime fo diabetes mellitus
acetaminophen 500 mg Tablet
1,000 mg PO Q6HPRN PRN (Reason: fever or mild pain)
carboxymethylcellulose sodium 0.5 % Drops
1 drp BOTH EYES Q6HPRN PRN (Reason: eye irritation)
duloxetine 30 mg Capsule,Delayed Release(Dr/Ec)
30 mg PO DAILY
tolterodine 2 mg Tablet
2 mg PO DAILY
lidocaine 5 % Adhesive Patch,Medicated
1 patch TOPICAL DAILY
ipratropium bromide 42 mcg (0.06 %) [facility],Non-Aerosol
2 spray INTRANASAL TID
tirzepatide 2.5 mg/0.5 mL Pen Injector
2.5 mg SC TH
Rx Instructions:
for 4 weeks
insulin glargine 100 unit/mL Solution
8 unit SC DAILY
carboxymethylcellulose sodium 0.5 % Drops
1 drp BOTH EYES BID
gabapentin 100 mg Capsule
200 mg PO TID
Discontinued
carvedilol 3.125 mg Tablet
3.125 mg PO Q12H
Discharge Orders:
Discharge Patient (As Directed); Ordered 09/21/24
Ordered By: Blaze Barragan
Discharge Date and Time
Discharge Date/Time: 09/21/24 18:25
Print Language: NIUEAN

Documented by User: Mingo Juarez MD 09/21/24 23:29
Discharge Summary
Discharge Data
Date of Admission: 09/14/24
Date of Discharge: 09/21/24
Discharge Plan
-
Patient Disposition: Assisted/SNF
Discharge Diagnosis/Procedures: Acute Hypoxemic Respiratory Failure 2/2 Acute on Chronic HFrEF, AR on CKD 3b, Left leg hematoma, Proximal atrial fibrillation, Insulin-dependent diabetes, CAD, Chronic indwelling Lawton catheter, Hypothyroidism, GERD
Condition: Fair
Diet: Diabetic, Carb Controlled
Activity: As tolerated
Driving Restrictions: As prior to admission
Bathing Restrictions: None
Other Services: PT and OT
Activity Restrictions/Additional Instructions:
Wound Care Instructions
L leg wound (just distal to knee)-clean with saline or Vashe wound cleanser, Santyl ointment, silicone border foam, change daily and prn drainage.
Elevate heels off bed with pillow/s.
Pressure redistributing chair cushion.
Sacral/coccyx-clean with saline, silicone border foam, change q 2 days and prn loosened dressing. If foam ineffective, apply zinc barrier TID instead.
Evaluate for air mattress.
Follow up at wound care center call for an appointment.
Instructions: *PCP/Other Room Attendant Heart Failure Instructions
Referrals:
AGATHA ROBINS MD [Non-Admitting Privileges] - in less than 1 week
Sweta Simon CRNP [Specified Professional Personl] - 10/06/24 11:20 am
Additional Discharge Medication Instructions: Discontinue coreg 3.125mg
Take Lasix 80mg 1 tab by mouth daily.
apply Santyl ointment everyday to the left leg wound.
Patient on 2L O2 NC. O2 saturation drop from 93% to 90% on room air so she does not qualify for home o2. However she is unable to ambulate at this time because of leg wound so ambulatory o2 status can not be checked. She might need o2 at facility if
O2 drop below 88% with ambulation.
BMP in 1 week
Prescriptions:
New
Santyl 250 unit/gram Ointment
1 applic topical DAILY Qty: 15 0RF
furosemide 80 mg Tablet
80 mg PO DAILY Qty: 30 0RF
Continued
atorvastatin [Lipitor] 40 mg Tablet
40 mg PO DAILY
divalproex 500 mg Tablet,Delayed Release (Dr/Ec)
500 mg PO HS
aspirin 81 mg Tablet,Delayed Release (Dr/Ec)
81 mg PO DAILY
vitamin B complex Tablet
1 tab PO DAILY
folic acid 1 mg Tablet
1 mg PO HS
Eliquis 5 mg Tablet
5 mg PO BID Qty: 0 0RF
amiodarone [Pacerone] 200 mg Tablet
200 mg PO DAILY Qty: 0 0RF
pantoprazole 40 mg Tablet,Delayed Release (Dr/Ec)
40 mg PO DAILY Qty: 0 0RF
cholecalciferol (vitamin D3) 50 mcg (2,000 unit) Tablet
50 mcg PO DAILY Qty: 0 0RF
magnesium oxide 400 mg magnesium Tablet
400 mg PO DAILY
ferrous sulfate 325 mg (65 mg iron) Tablet
325 mg PO DAILY
levothyroxine 125 mcg Tablet
125 mcg PO DAILY@06
gabapentin 100 mg Capsule
100 mg PO TID
Rx Instructions:
take for 7 dys from 09/13/24-09/20/24
insulin lispro [Humalog KwikPen Insulin] 100 unit/mL insulin pen
0 unit SC AC
Rx Instructions:
SLIDING SCALE inject as per sliding scale: if 0-199=0; 200-250=2; 251-300=3, 301-350=4; 351-400=5, 401-450= 6; 451-500=7; 501-999=0, subcutaneously before meals and at bedtime fo diabetes mellitus
acetaminophen 500 mg Tablet
1,000 mg PO Q6HPRN PRN (Reason: fever or mild pain)
carboxymethylcellulose sodium 0.5 % Drops
1 drp BOTH EYES Q6HPRN PRN (Reason: eye irritation)
duloxetine 30 mg Capsule,Delayed Release(Dr/Ec)
30 mg PO DAILY
tolterodine 2 mg Tablet
2 mg PO DAILY
lidocaine 5 % Adhesive Patch,Medicated
1 patch TOPICAL DAILY
ipratropium bromide 42 mcg (0.06 %) [facility],Non-Aerosol
2 spray INTRANASAL TID
tirzepatide 2.5 mg/0.5 mL Pen Injector
2.5 mg SC TH
Rx Instructions:
for 4 weeks
insulin glargine 100 unit/mL Solution
8 unit SC DAILY
carboxymethylcellulose sodium 0.5 % Drops
1 drp BOTH EYES BID
gabapentin 100 mg Capsule
200 mg PO TID
Discontinued
carvedilol 3.125 mg Tablet
3.125 mg PO Q12H
Discharge Orders:
Discharge Patient (As Directed); Ordered 09/21/24
Ordered By: Blaze Barragan
Discharge Date and Time
Discharge Date/Time: 09/21/24 18:25
Print Language: NIUEAN
== END 2024-09-21 18:25 | DRG 291 ==
LOC: 4 WEST ACU 02:50
PROVIDERS: Emergency Medicine; Internal Medicine; ADMITTING PHYSICIAN Internal Medicine; ATTENDING PHYSICIAN Family Medicine; EMERGENCY PHYSICIAN Student in an Organized Health Care Education/Training Program; FAMILY PHYSICIAN Nurse Practitioner Adult Health; OTHER PHYSICIAN Internal Medicine Cardiovascular Disease
DX: I13.0 Hypertensive heart and chronic kidney disease with heart failure and stage 1 through stage 4 chronic kidney disease, or unspecified chronic kidney disease (principal); I50.23 Acute on chronic systolic (congestive) heart failure; J96.01 Acute respiratory failure with hypoxia; J98.11 Atelectasis; N17.9 Acute kidney failure, unspecified; Z11.52 Encounter for screening for COVID-19; F17.200 Nicotine dependence, unspecified, uncomplicated; Z79.01 Long term (current) use of anticoagulants; I48.0 Paroxysmal atrial fibrillation; I25.10 Atherosclerotic heart disease of native coronary artery without angina pectoris; N18.32 Chronic kidney disease, stage 3b; E03.9 Hypothyroidism, unspecified; K21.9 Gastro-esophageal reflux disease without esophagitis; L89.611 Pressure ulcer of right heel, stage 1; L89.621 Pressure ulcer of left heel, stage 1; I25.5 Ischemic cardiomyopathy; D63.1 Anemia in chronic kidney disease; E11.22 Type 2 diabetes mellitus with diabetic chronic kidney disease; I34.81 Nonrheumatic mitral (valve) annulus calcification; Z79.4 Long term (current) use of insulin; Z79.82 Long term (current) use of aspirin; Z79.899 Other long term (current) drug therapy
CPT/HCPCS: 71046; 80048; 80053; 82805; 82962; 83735; 83880; 84100; 85025; 85027; 87070; 87147; 87502; 87811; 93005; 93306; 94640; 94660; 96374; 97110; 97163; 97167; 97530; 99285

== ENCOUNTER 2024-12-06 12:32 | Emergency (ER) | payer MEDICARE, OTHER, SELFPAY ==
[2024-12-06] VITALS (9 sets, daily range): BP systolic 106–149; BP diastolic 43–76; BMI 31.1
[2024-12-06 13:07] LABS: % Basophils 1.3 % (0-2); % Eosinophils 5.8 % (0-6); % Immature Granulocytes 0.3 % (0-0.5); % Lymphocytes 17.9 % (20.5-51.1); % Neutrophils 66.7 % (42.2-75.2); Absolute Basophils 0.1 10^3/uL (0-0.2); Absolute Eosinophils 0.6 10^3/uL (0-0.7); Absolute Lymphocytes 1.8 10^3/uL (1.2-3.4); Absolute Monocytes 0.8 10^3/uL (0.1-0.6); Absolute Neutrophils 6.7 10^3/uL (1.4-6.5); Hematocrit 36.6 % (37.0-47.0); Mean Corp Hgb Conc. 32.8 g/dL (33.0-37.0); Mean Corpuscular Hgb 28.4 pg (27.0-31.0); Mean Corpuscular Volume 86.7 fL (81.0-99.0); Mean Platelet Volume 10.7 fL (7.4-10.4); Nucleated Red Blood Cells % 0 %; Platelet Count 278 10^3/uL (130-400); Red Blood Cell Count 4.22 10^6/uL (4.20-5.40); Red Cell Dist. Width 15.3 % (11.5-14.5); White Blood Cell Count 10.1 10^3/uL (4.8-10.8)
[2024-12-06 13:21] LABS: ALT (SGPT) 20 U/L (0-35); AST (SGOT) 22 U/L (14-36); Albumin 3.8 g/dl (3.5-5.0); Alkaline Phosphatase 151 U/L (38-126); Blood Urea Nitrogen 52 mg/dl (7-17); Calcium 9.9 mg/dl (8.4-10.2); Carbon Dioxide 29 mmol/L (22-30); Chloride 101 mmol/L (98-107); Estimated Creatinine Clearance 34 ml/min; Glucose 190 mg/dl (70-99); Potassium 4.2 mmol/L (3.5-5.1); Sodium 140 mmol/L (135-145); Total Bilirubin 0.4 mg/dl (0.2-1.3); eGFR 42.35
--- NOTE | 2024-12-06 13:44 | ED.GENMED ---
History of Present Illness
General
Chief Complaint: Urinary Symptoms
Source: patient
Time Seen by Provider: 12/06/24 12:39
History of Present Illness
History of Present Illness:
This is a 79-year-old female who presents with low back pain and lower abdominal pain. The patient states that her low back pain has been going on for about a week. She states lower abdominal pain started last 2 to 3 days. She has been draining
cloudy urine from her catheter and was told she had a UTI about 2 weeks ago but that because of her allergies, they were going to just watch it. No reported fevers. No diarrhea. She states she does feel a bit bloated. No vomiting. No chest
pain. No cough.
Past History
Past History
ED Past Medical History: Arrthythmia (Atrial fibrillation), CAD, CHF, HTN, Hypercholesterolemia and IDDM
ED Past Surgical History: Appendectomy, Cholecystectomy and Orthopedic
Social History
Tobacco: Non-smoker
Alcohol: None
Drug: Other
Personal:
Living: with family
Employment: Retired
Family History
Family History: Other
Phy Exam
Physical Exam
Physical Exam:
CONSTITUTIONAL Patient alert and oriented to person, place and time. Well-appearing. Vital signs reviewed.
HEAD atraumatic, normocephalic.
EYES eyelids normal to inspection, Extraocular muscles intact, Conjunctiva normal, Sclera normal.
NECK normal range of motion, Trachea midline, no jugular venous distention.
RESPIRATORY CHEST No respiratory distress noted, Chest expansion equal, Bilateral breath sounds clear.
CARDIOVASCULAR regular rate and rhythm, Heart sounds normal.
ABDOMEN mild lower abdominal tenderness but no rebound or guarding, Bowel sounds normal. No distention. Chronic indwelling Lawton noted with cloudy urine in the bag
BACK normal inspection, no obvious deformities
UPPER EXTREMITY range of motion normal, Motor strength normal, no cyanosis, no edema.
LOWER EXTREMITY range of motion normal, Motor strength normal, no cyanosis, no edema. Wound noted to the left tibial tuberosity with no surrounding redness. There is a little bit of necrosis to the center of the wound. Patient states they have
been trying to provide wound care and get it to heal
NEURO Speech normal, No focal motor deficits, Isabel coma scale 15, Memory normal, Cranial Nerves intact to screening exam.
SKIN skin warm, dry, and normal in color.
Course
Orders/Labs/Results
Orders:
Orders
12/06/24 13:00
Complete Blood Count/With Diff Urgent
Comprehensive Metabolic Panel Urgent
Lactic Acid Urgent
12/06/24 13:36
Urinalysis Reflex To Culture Urgent
Date Specimen was Collected: 12/06/24
Time Specimen was Collected: 12:48
Urine Microscopic Reflex Cult Urgent
Urine Culture Urgent
CHIDI Source: U
Specimen Description:
Obtained by: Random
Date Specimen was Collected: 12/06/24
Time Specimen was Collected: 12:48
12/06/24 13:49
CT Abd/pelvis W Iv Cont Urgent
Comment:
Reason For Exam: lower abd pain
12/06/24 14:00
Diphenhydramine [Benadryl] 50 mg IV NOW STA
Hydrocortisone Sod Succinate [Solu-Cortef] 200 mg IV NOW STA
Abnormal Lab Results
12/06/24 12/06/24
13:00 13:36
Hct 36.6 L %
(37.0-47.0)
MCHC 32.8 L g/dL
(33.0-37.0)
RDW 15.3 H %
(11.5-14.5)
MPV 10.7 H fL
(7.4-10.4)
Absolute Neuts (auto) 6.7 H 10^3/uL
(1.4-6.5)
Absolute Monos (auto) 0.8 H 10^3/uL
(0.1-0.6)
Lymphocytes % 17.9 L %
(20.5-51.1)
BUN 52 H mg/dl
(7-17)
Creatinine 1.3 H mg/dL
(0.6-1.0)
Glucose 190 H mg/dl
(70-99)
Alkaline Phosphatase 151 H U/L
(38-126)
Ur Occult Blood Reflex 3+ A
(Negative)
Leukocyte Esterase Rfl 3+ A
(Negative)
Urine RBC 11-15 A /HPF
(0-2)
Urine WBC (Reflex) >100 A /HPF
(0-5)
Urine Bacteria (Reflex) Many A
(Negative)
Urine Albumin (Reflex) 2+ A
(Neg - Trace)
12/06/24 13:00
12/06/24 13:00
Vital Signs
Initial and Last Documented VS:
Initial Vital Signs
Temp Pulse Resp BP Pulse Ox
99.0 F 57 18 106/57 93
12/06/24 12:36 12/06/24 12:36 12/06/24 12:36 12/06/24 12:36 12/06/24 12:36
Last Documented Vital Signs
Temp Pulse Resp BP Pulse Ox
99.0 F 68 22 137/43 90
12/06/24 12:36 12/06/24 15:30 12/06/24 15:30 12/06/24 15:00 12/06/24 15:30
MDM/Problems Addressed
Differential Diagnosis Includes:
UTI, colitis, diverticulitis, bladder outflow obstruction
MDM/Problems Addressed:
Urinary tract infection, ESBL, abdominal pain
*Radiology
Radiology exam reviewed: radiology read reviewed
*Pulse Oximetry
Patient hypoxic: no
*Critical Care Note
Total Time (30-74mins, 75-104mins- exclusive of procedures): Not Applicable
Data Reviewed
Review of Other/Old Records Reveals: Labs (Prior urine culture reviewed showing ESBL with multiple resistances)
Source: patient
Patient Management
Discussion with other providers: Hospitalist and Production Broacher (Case discussed with infectious disease)
Escalation/DeEscalation of care consider admission/obs:
79-year-old female with a history of urinary tract infection. Today no fever, no white count, no left shift. Case discussed infectious disease who feels strongly that given that there is no fever or white count that we hold off on antibiotics.
Question whether her abdominal discomfort is related to constipation. For now case was discussed with family at bedside. Family will watch her closely for fevers. They are well aware of her signs of UTI. They will return for fevers or any other
changes in mentation.
Update Note
Update Note:
We will also change out Lawton catheter. Family states it has been changed once a month.
ED Attending Note
-
Portions of this chart may have been created with voice recognition software.� Occasional wrong word or��sound alike� substitutions may have occurred due to the inherent limitations of voice recognition software.
Discharge Plan
Departure
Patient Disposition: Home (Routine Discharge)
Date of Disposition: 12/06/24
Time of Disposition: 17:33
Patient with high blood pressure during this ER visit?: No
Discharge Problem:
Abdominal pain, Constipation, Back pain, Chronic indwelling Lawton catheter
Instructions: How to Care for Your Lawton Catheter, Male, Abdominal Pain
Prescriptions:
No Action
atorvastatin [Lipitor] 40 mg Tablet
40 mg PO DAILY
divalproex 500 mg Tablet,Delayed Release (Dr/Ec)
500 mg PO HS
aspirin 81 mg Tablet,Delayed Release (Dr/Ec)
81 mg PO DAILY
vitamin B complex Tablet
1 tab PO DAILY
folic acid 1 mg Tablet
1 mg PO HS
Eliquis 5 mg Tablet
5 mg PO BID Qty: 0 0RF
amiodarone [Pacerone] 200 mg Tablet
200 mg PO DAILY Qty: 0 0RF
pantoprazole 40 mg Tablet,Delayed Release (Dr/Ec)
40 mg PO DAILY Qty: 0 0RF
cholecalciferol (vitamin D3) 50 mcg (2,000 unit) Tablet
50 mcg PO DAILY Qty: 0 0RF
magnesium oxide 400 mg magnesium Tablet
400 mg PO DAILY
ferrous sulfate 325 mg (65 mg iron) Tablet
325 mg PO DAILY
levothyroxine 125 mcg Tablet
125 mcg PO DAILY@06
gabapentin 100 mg Capsule
100 mg PO TID
Rx Instructions:
take for 7 dys from 09/13/24-09/20/24
insulin lispro [Humalog KwikPen Insulin] 100 unit/mL insulin pen
0 unit SC AC
Rx Instructions:
SLIDING SCALE inject as per sliding scale: if 0-199=0; 200-250=2; 251-300=3, 301-350=4; 351-400=5, 401-450= 6; 451-500=7; 501-999=0, subcutaneously before meals and at bedtime fo diabetes mellitus
acetaminophen 500 mg Tablet
1,000 mg PO Q6HPRN PRN (Reason: fever or mild pain)
carboxymethylcellulose sodium 0.5 % Drops
1 drp BOTH EYES Q6HPRN PRN (Reason: eye irritation)
duloxetine 30 mg Capsule,Delayed Release(Dr/Ec)
30 mg PO DAILY
tolterodine 2 mg Tablet
2 mg PO DAILY
lidocaine 5 % Adhesive Patch,Medicated
1 patch TOPICAL DAILY
ipratropium bromide 42 mcg (0.06 %) [place],Non-Aerosol
2 spray INTRANASAL TID
tirzepatide 2.5 mg/0.5 mL Pen Injector
2.5 mg SC TH
Rx Instructions:
for 4 weeks
insulin glargine 100 unit/mL Solution
8 unit SC DAILY
carboxymethylcellulose sodium 0.5 % Drops
1 drp BOTH EYES BID
gabapentin 100 mg Capsule
200 mg PO TID
Santyl 250 unit/gram Ointment
1 applic topical DAILY Qty: 15 0RF
furosemide 80 mg Tablet
80 mg PO DAILY Qty: 30 0RF
Referrals:
UNKNOWN - PT DOES,NOT KNOW [Family Provider] -
Activity Restrictions/Additional Instructions:
Please use MiraLAX twice a day for the next 4 days. Please return immediately for changes in mentation, fevers, vomiting, worsening symptoms or any other concerns. Please see your doctor in the next 1 week for follow-up and reevaluation.
Interventions
Interventions:
*Risk Screen - Suicide Last Done: 12/06/24 12:36
*General Assessment Last Done: 12/06/24 12:36
*Neglect/Abuse Screening Last Done: 12/06/24 12:44
*ED- Fall Risk Assessment Last Done: 12/06/24 12:44
*ED COVID-19 Vaccine History Last Done: 12/06/24 12:44
ED-Female Genitourinary Assessment Last Done: 12/06/24 12:45
Discharge Date and Time
Print Language: CAMBODIAN
[2024-12-06 13:54] LABS: Urine Albumin 2+ (Neg - Trace); Urine Bilirubin Negative (Negative); Urine Character Cloudy (Clear); Urine Color Yellow; Urine Glucose Negative (Negative); Urine Ketone Negative (Negative); Urine Leukocyte 3+ (Negative); Urine Nitrite Negative (Negative); Urine Occult Blood 3+ (Negative); Urine Specific Gravity 1.015 (<1.030); Urine Urobilinogen Negative (Neg - 1+)
[2024-12-06 14:03] LABS: Urine Squamous Cell 0-2 /LPF (Few)
[2024-12-06 14:04] LABS: Urine Bacteria Many (Negative); Urine White Cell >100 /HPF (0-5)
[2024-12-06 14:26] LABS: Lactic Acid 1.1 mmol/L (0.7-2.0)
[2024-12-06] MEDS: BENADRYL 50 MG IV (14:27)
[2024-12-06] MEDS: SOLU-CORTEF 200 MG IV (14:32)
[2024-12-06 18:36] LABS: Glucose - Point of Care 241 mg/dl (70-99)
== END 2024-12-06 20:15 | disposition home or self-care (01) ==
LOC: EMR 12:32
PROVIDERS: EMERGENCY PHYSICIAN Emergency Medicine
DX: R10.30 Lower abdominal pain, unspecified (principal); K59.00 Constipation, unspecified; M54.9 Dorsalgia, unspecified; I48.91 Unspecified atrial fibrillation; I25.10 Atherosclerotic heart disease of native coronary artery without angina pectoris; I11.0 Hypertensive heart disease with heart failure; I50.9 Heart failure, unspecified; E78.00 Pure hypercholesterolemia, unspecified; E11.9 Type 2 diabetes mellitus without complications; Z87.440 Personal history of urinary (tract) infections; Z90.49 Acquired absence of other specified parts of digestive tract
CPT/HCPCS: 99284; 51702; 96374; 96375; 74177; 80053; 81003; 81015; 82962; 83605; 85025; 87086; Q9967

== ENCOUNTER 2025-02-03 13:16 | Inpatient (IN) | payer MEDICARE, OTHER, SELFPAY ==
[2025-01-30] VITALS (12 sets, daily range): BP systolic 81–120; BP diastolic 31–99; BMI 27.3
[2025-01-30 15:55] LABS: % Basophils 0.9 % (0-2); % Eosinophils 1.8 % (0-6); % Immature Granulocytes 0.5 % (0-0.5); % Lymphocytes 13.1 % (20.5-51.1); % Monocytes 11.2 % (1.7-9.3); % Neutrophils 72.5 % (42.2-75.2); Absolute Basophils 0.1 10^3/uL (0-0.2); Absolute Eosinophils 0.2 10^3/uL (0-0.7); Absolute Immature Granulocytes 0.1 10^3/uL (0-0.05); Absolute Lymphocytes 1.4 10^3/uL (1.2-3.4); Absolute Monocytes 1.2 10^3/uL (0.1-0.6); Absolute Neutrophils 7.8 10^3/uL (1.4-6.5); Hematocrit 31.4 % (37.0-47.0); Hemoglobin 10.6 g/dL (12.0-16.0); Mean Corp Hgb Conc. 33.8 g/dL (33.0-37.0); Mean Corpuscular Hgb 28.4 pg (27.0-31.0); Mean Corpuscular Volume 84.2 fL (81.0-99.0); Mean Platelet Volume 10.7 fL (7.4-10.4); Nucleated Red Blood Cells % 0 %; Platelet Count 309 10^3/uL (130-400); Red Blood Cell Count 3.73 10^6/uL (4.20-5.40); Red Cell Dist. Width 16.6 % (11.5-14.5); White Blood Cell Count 10.8 10^3/uL (4.8-10.8)
[2025-01-30 16:37] LABS: Urine Albumin 3+ (Neg - Trace); Urine Bilirubin 1+ (Negative); Urine Character Cloudy (Clear); Urine Color Yellow; Urine Glucose Negative (Negative); Urine Ketone 1+ (Negative); Urine Leukocyte 3+ (Negative); Urine Nitrite Negative (Negative); Urine Occult Blood 4+ (Negative); Urine Urobilinogen 1+ (Neg - 1+)
[2025-01-30 17:16] LABS: Urine Red Blood Cell 16-20 /HPF (0-2)
[2025-01-30 17:17] LABS: Urine White Cell 90-100 /HPF (0-5)
--- NOTE | 2025-01-30 17:44 | ED.GENMED ---
History of Present Illness
General
Chief Complaint: Weakness
Time Seen by Provider: 01/30/25 17:44
History of Present Illness
History of Present Illness:
TIME OF INITIAL EVALUATION
- 5:45 PM
REVIEW OF OLD RECORDS
- The patient has A-fib, stroke, CHF, CAD along with chronically poor vision. I reviewed records, she was admitted with CHF in September.
Note:
CHIEF COMPLAINT(S)
Weakness
HISTORY OF PRESENT ILLNESS
The patient is a 79-year-old female with a past medical history of stroke, presenting with concerns of experiencing another stroke. She reports feeling weak and is somewhat disoriented, as she cannot correctly identify the current month. During the
examination, there is difficulty in communication and expressing the reason for her visit. Physical examination attempts included assessments of limb movement; however, the specifics and outcomes are not detailed. Her breathing was auscultated, but
findings are not specified.
At 6 PM, I spoke to the daughter. The daughter tells me that last night she would not eat anything, today she primarily kept her eyes closed; she was not really acting like her normal self. The daughter tells me that when she has a urinary tract
infection, she acts like this. In the past, when she is treated for UTI she markedly improved. Daughter states that her catheter was changed within the past month.
PHYSICAL EXAM
-General: Appears in no distress but she appears generally weak and debilitated
-HEENT: Moist oral mucosa
-Cardiovascular: Regular rate and rhythm
-Pulmonary: No respiratory distress, however she is found to have room air sats of 88 to 92% on room air
-Abdomen: Soft and nontender with no peritoneal signs
-Neurologic: The patient has evidence of dementia, not oriented to month or place, strength is equal in all extremities
-Extremities: Moves all extremities equally, no tenderness, no edema
-Psychiatric: Very limited historian, poor insight and judgment
DIFFERENTIAL DIAGNOSIS
The Differential Diagnosis includes, in no particular order and is not limited to:
- Stroke
- Transient Ischemic Attack (TIA)
- Seizure
- Hyponatremia
- Hypoglycemia
- Infection (e.g., urinary tract infection, pneumonia)
- Medication side effects
- Dementia exacerbation
- Delirium
- Cardiovascular event (e.g., myocardial infarction)
RADIOLOGY
- Chest x-ray obtained
EKG
- Sinus 76, left axis deviation, inferior Q waves old
LABS
- White count top normal at 10.8, hemoglobin 10.6, 90-100 WBC/hpf which has been seen in the past
UPDATE
- Urinalysis chronically abnormal. Of note she did grow Klebsiella ESBL and Pseudomonas in November.
Daughter feels that symptoms to her are clearly related to UTI. The patient appears encephalopathic.
SUMMARY OF ENCOUNTER
The patient is a 79-year-old female presented to the emergency department with symptoms concerning for a potential stroke, including weakness on one side and disorientation. Her daughter, contacted via phone, insisted symptoms were due to a urinary
tract infection. The patient has a chronic Lawton catheter, last changed about three weeks ago.
DISPOSITION
The plan is to admit the patient to the hospital for intravenous antibiotics due to suspected urinary tract infection and to monitor for stroke or other neurological events.
INDEPENDENT REVIEW OF LABS AND INTERPRETATION OF TESTS
My independent review of the urinalysis is abnormal, indicating the possibility of a urinary tract infection. My independent interpretation of the chest X-ray reveals some improvement compared to prior imaging from January.
PATHOLOGIES TO CONSIDER
Infection (urinary tract infection with evidence from urinalysis), cardiovascular events.
Given the associated hypoxia, nursing staff has increased nasal cannula oxygen to 4 L/min now she is at 96%
I have asked Dr. Miller for admission to the hospital
Past History
Past History
ED Past Medical History: Arrthythmia (Atrial fibrillation), CAD, CHF, HTN, Hypercholesterolemia and IDDM
ED Past Surgical History: Appendectomy, Cholecystectomy and Orthopedic
Social History
Tobacco: Non-smoker
Alcohol: None
Drug: Other
Personal:
Living: with family
Employment: Retired
Family History
Family History: Other
Phy Exam
Physical Exam
Physical Exam:
See HPI
Course
Orders/Labs/Results
Orders:
Orders
01/30/25 15:41
EKG [Electrocardiogram (*1)] Urgent
Reason for Study: Fatigue / Weakness
01/30/25 15:42
EKG- Treatment ONCE
01/30/25 15:47
Complete Blood Count/With Diff Urgent
Urinalysis Reflex To Culture Urgent
Date Specimen was Collected: 01/30/25
Time Specimen was Collected: 15:42
Urine Microscopic Reflex Cult Urgent
Urine Culture Urgent
CHIDI Source: U
Specimen Description:
Date Specimen was Collected: 01/30/25
Time Specimen was Collected: 15:42
01/30/25 17:49
CR Chest Portable - 1 View Urgent
Comment:
Reason For Exam: hypoxia chf
Reason Study Needs to be Portable: Unable to Transport
01/30/25 17:55
Add On- LAB Urgent
Tests Added?: BNP
01/30/25 18:31
Comprehensive Metabolic Panel Urgent
Lactic Acid Q4H
Comment: CANCEL 2nd LACTIC ACID IF 1st LACTIC ACID IS LESS THAN 2
NT-proBNP Urgent
Comment: ADD ON
Blood Culture Q30M
CHIDI Source: Blood/Venous
Specimen Description:
01/30/25 18:46
Ertapenem [Invanz] 1,000 mg 0.9% Sodium Chloride [Nss] 50 ml IV NOW
01/30/25 19:13
Blood Culture Urgent
CHIDI Source: B
Specimen Description:
Abnormal Lab Results
01/30/25 01/30/25
15:47 18:31
RBC 3.73 L 10^6/uL
(4.20-5.40)
Hgb 10.6 L g/dL
(12.0-16.0)
Hct 31.4 L %
(37.0-47.0)
RDW 16.6 H %
(11.5-14.5)
MPV 10.7 H fL
(7.4-10.4)
Abs Immat Gran (auto) 0.1 H 10^3/uL
(0-0.05)
Absolute Neuts (auto) 7.8 H 10^3/uL
(1.4-6.5)
Absolute Monos (auto) 1.2 H 10^3/uL
(0.1-0.6)
Lymphocytes % 13.1 L %
(20.5-51.1)
Monocytes % 11.2 H %
(1.7-9.3)
Carbon Dioxide 33 H mmol/L
(22-30)
BUN 43 H mg/dl
(7-17)
Creatinine 1.3 H mg/dL
(0.6-1.0)
Glucose 174 H mg/dl
(70-99)
Albumin 3.1 L g/dl
(3.5-5.0)
Urine Ketones 1+ A
(Negative)
Ur Occult Blood Reflex 4+ A
(Negative)
Urine Bilirubin 1+ A
(Negative)
Leukocyte Esterase Rfl 3+ A
(Negative)
Urine RBC 16-20 A /HPF
(0-2)
Urine WBC (Reflex) 90-100 A /HPF
(0-5)
Urine Albumin (Reflex) 3+ A
(Neg - Trace)
01/30/25 15:47
01/30/25 18:31
Vital Signs
Initial and Last Documented VS:
Initial Vital Signs
Temp Pulse Resp BP Pulse Ox
36.8 C 73 24 104/42 96
01/30/25 15:38 01/30/25 15:38 01/30/25 15:38 01/30/25 15:38 01/30/25 15:38
Last Documented Vital Signs
Temp Pulse Resp BP Pulse Ox
37.2 C 72 15 119/32 92
01/30/25 17:23 01/30/25 19:00 01/30/25 19:00 01/30/25 19:00 01/30/25 19:00
*Pulse Oximetry
SaO2: 95
Nasal Cannula flow liters per minute: 2
Patient hypoxic: yes
*Credit Risk Associate Interpretation
Rate: normal
Interpretation: normal
Heart Rate: 76
Rhythm: sinus
*Critical Care Note
Total Time (30-74mins, 75-104mins- exclusive of procedures): Not Applicable
ED Attending Note
-
Portions of this chart may have been created with voice recognition software.� Occasional wrong word or��sound alike� substitutions may have occurred due to the inherent limitations of voice recognition software.
Discharge Plan
Departure
Prescriptions:
No Action
atorvastatin [Lipitor] 40 mg Tablet
40 mg PO DAILY
divalproex 500 mg Tablet,Delayed Release (Dr/Ec)
500 mg PO HS
vitamin B complex Tablet
1 tab PO DAILY
folic acid 1 mg Tablet
1 mg PO HS
Eliquis 5 mg Tablet
5 mg PO BID Qty: 0 0RF
amiodarone [Pacerone] 200 mg Tablet
200 mg PO DAILY Qty: 0 0RF
pantoprazole 40 mg Tablet,Delayed Release (Dr/Ec)
40 mg PO DAILY Qty: 0 0RF
cholecalciferol (vitamin D3) 50 mcg (2,000 unit) Tablet
50 mcg PO DAILY Qty: 0 0RF
magnesium oxide 400 mg magnesium Tablet
400 mg PO DAILY
ferrous sulfate 325 mg (65 mg iron) Tablet
325 mg PO DAILY
levothyroxine 125 mcg Tablet
125 mcg PO DAILY@06
gabapentin 100 mg Capsule
100 mg PO TID
insulin lispro [Humalog KwikPen Insulin] 100 unit/mL insulin pen
0 unit SC AC
Rx Instructions:
SLIDING SCALE inject as per sliding scale: if 0-199=0; 200-250=2; 251-300=3, 301-350=4; 351-400=5, 401-450= 6; 451-500=7; 501-999=0, subcutaneously before meals and at bedtime fo diabetes mellitus
acetaminophen 500 mg Tablet
1,000 mg PO Q6HPRN PRN (Reason: fever or mild pain)
duloxetine 30 mg Capsule,Delayed Release(Dr/Ec)
30 mg PO DAILY
lidocaine 5 % Adhesive Patch,Medicated
1 patch TOPICAL DAILY
insulin glargine 100 unit/mL Solution
8 unit SC DAILY
Acidophilus Capsule
10 mg PO DAILY
furosemide 80 mg tablet
40 mg PO DAILY
Referrals:
Gloria Allison CRNP [Family Provider, General]
Interventions
Interventions:
*Risk Screen - Suicide Last Done: 01/30/25 15:38
*General Assessment Last Done: 01/30/25 15:38
*Neglect/Abuse Screening Last Done: 01/30/25 15:38
*ED- Fall Risk Assessment Last Done: 01/30/25 15:38
*ED COVID-19 Vaccine History Last Done: 01/30/25 15:38
ED- Cardiac Assessment Last Done: 01/30/25 15:38
ED- Neurological Assessment Last Done: 01/30/25 15:38
ED- Pulmonary Assessment Last Done: 01/30/25 15:38
Discharge Date and Time
Print Language: CAMBODIAN
[2025-01-30 18:59] LABS: Lactic Acid 0.9 mmol/L (0.7-2.0)
[2025-01-30 19:01] LABS: ALT (SGPT) 17 U/L (0-35); AST (SGOT) 28 U/L (14-36); Albumin 3.1 g/dl (3.5-5.0); Alkaline Phosphatase 85 U/L (38-126); Blood Urea Nitrogen 43 mg/dl (7-17); Calcium 9.5 mg/dl (8.4-10.2); Carbon Dioxide 33 mmol/L (22-30); Chloride 98 mmol/L (98-107); Estimated Creatinine Clearance 37 ml/min; Glucose 174 mg/dl (70-99); Potassium 4.2 mmol/L (3.5-5.1); Sodium 136 mmol/L (135-145); Total Bilirubin 0.7 mg/dl (0.2-1.3); Total Protein 6.6 g/dl (6.3-8.2); eGFR 42.35
[2025-01-30] MEDS: INVANZ 60 MG IV (19:15)
[2025-01-30 19:17] LABS: NT-proBNP 8260 pg/ml
--- NOTE | 2025-01-30 20:45 | HPS.HSE ---
Family Physician
-
Family Physician: Gloria Allison
Chief Complaint
-
weakness
History of Present Illness
This is a 79-year-old female with past medical history significant for insulin-dependent diabetes, CVA, atrial fibrillation on on anticoagulation, hypothyroid, CKD, chronic hypoxia on 2 L home O2, congestive heart failure presenting to the emergency
department with weakness. Reports chills, weakness and increasing confusion.
She has history of recurrent urinary tract infections and urinary retention status post chronic indwelling urinary catheter. She has had ESBL E. coli as well as Klebsiella. Daughter reports that her symptoms are typical for UTIs.
In the emergency department she was afebrile, blood pressure was 113/90 with a pulse of 78 and she was satting 94% on 2 L. ECG shows normal sinus rhythm at rate of 76 with a left bundle which is unchanged from prior.
CBC is unremarkable. Electrolytes BUN and creatinine were at baseline.
UA was positive
Chest x-ray showed small left pleural effusion with associated atelectasis or pneumonia.
Medical History
Past Medical History
Past Medical History: Reports Other
Additional Past Medical History:
Chronic systolic congestive heart failure, type II non-STEMI myocardial infarction
Type 2 diabetes mellitus
History of acute kidney injury on chronic kidney disease stage III, history of shock related to ischemic colitis and extended spectrum beta-lactamase resistant Klebsiella urinary tract infection
Acute catheter-associated deep venous thrombosis in the right arm (midline placement)
Paroxysmal atrial fibrillation
Anemia of chronic disease
Trigeminal neuralgia
Hypothyroidism
Hyperlipidemia
Overactive bladder
Chronic pain/fibromyalgia/depression
History of subdural hematoma
Coronary artery disease status post stents with left bundle branch block
Previous history of stroke
Obstructive sleep apnea
Essential hypertension
Past Surgical History: Reports Other
Social History
Tobacco: Smoker
Alcohol: None
Drug: None
Personal: Single
Living: Jail
Employment: Retired
Family History
Family History: Not pertinent
Allergies / Home Medications
Allergies reflects when Allergies were last updated in [facility].
Home Medications with original date entered in [facility]
Allergy/Medication List:
Allergies
Allergy/AdvReac Type Severity Reaction Status Date / Time
cephalexin Allergy Unknown Verified 09/13/24 21:54
ciprofloxacin Allergy Hives Verified 09/13/24 21:54
formaldehyde Allergy Shortness Verified 09/13/24 21:54
of Breath
Iodinated Contrast Media Allergy Hives Verified 09/13/24 21:54
metoprolol Allergy Itching Verified 09/13/24 21:54
Penicillins Allergy Unknown Verified 09/13/24 21:54
piperacillin [From Zosyn] Allergy Unknown Verified 09/13/24 21:54
pregabalin [From Lyrica] Allergy Hives Verified 09/13/24 21:54
shellfish derived Allergy Unknown Verified 09/13/24 21:54
Gslpneo-KTA-EkK Reductase Allergy Unknown Verified 09/13/24 21:54
Inhibitor
Sulfa (Sulfonamide Allergy Unknown Verified 09/13/24 21:54
Antibiotics)
tazobactam [From Zosyn] Allergy Unknown Verified 09/13/24 21:54
vancomycin Allergy Rash Verified 09/13/24 21:54
Home Medications
aspirin 81 mg tablet,delayed release 81 mg PO DAILY Blood Clot Prevention/Tx 05/17/23
atorvastatin 40 mg tablet (Lipitor) 40 mg PO DAILY High Cholesterol 05/17/23
divalproex 500 mg tablet,delayed release 500 mg PO QPM Neurological Condition 05/17/23
folic acid 1 mg tablet 1 mg PO HS Supplement 05/17/23
vitamin B complex 1 tab PO DAILY Supplement 05/17/23
amiodarone 200 mg tablet (Pacerone) 200 mg PO DAILY Arrhythmia #0 tabs 01/26/24
apixaban 5 mg tablet (Eliquis) 5 mg PO BID Blood clot prevention/tx #0 tabs 01/26/24
cholecalciferol (vitamin D3) 50 mcg (2,000 unit) tablet 50 mcg PO DAILY Supplement #0 tabs 01/26/24
pantoprazole 40 mg tablet,delayed release 40 mg PO DAILY Gastrointestinal issue #0 tabs 01/26/24
magnesium oxide 400 mg PO DAILY Supplement 03/20/24
ferrous sulfate 325 mg (65 mg iron) tablet 325 mg PO DAILY Supplement 08/13/24
gabapentin 100 mg capsule 200 mg PO TID Neurological Condition 08/13/24
insulin lispro 100 unit/mL subcutaneous pen (Humalog KwikPen (U-100) Insulin) unit SC AC Diabetes 08/13/24
levothyroxine 125 mcg tablet 125 mcg PO DAILY Thyroid 08/13/24
acetaminophen 500 mg tablet 1,000 mg PO Q6H PRN fever or pain 09/14/24
carboxymethylcellulose sodium 0.5 % eye drops 1 drp ophthalmic (eye) Q6H PRN eye irritation 09/14/24
carvedilol 3.125 mg tablet 3.125 mg PO Q12H a. fib 09/14/24
duloxetine 30 mg capsule,delayed release 30 mg PO DAILY 09/14/24
insulin glargine 100 unit/mL subcutaneous solution 8 unit SC DAILY 09/14/24
ipratropium bromide 42 mcg (0.06 %) nasal spray 2 spray intranasal TID stuffy nose 09/14/24
lidocaine 5 % topical patch 1 patch topical DAILY 09/14/24
tirzepatide 2.5 mg/0.5 mL subcutaneous pen injector 2.5 mg SC QWEEK 09/14/24
tolterodine 2 mg tablet 2 mg PO DAILY 09/14/24
Review of Systems
-
Unable to obtain full review of systems at this time due to: Dementia
Physical Exam
Vital Signs
Vital Signs
Temp Pulse Resp BP Pulse Ox
98.9 F 78 15 113/93 94
01/30/25 17:23 01/30/25 20:00 01/30/25 20:00 01/30/25 20:00 01/30/25 19:45
Physical Exam
General: Well Developed, No Apparent Distress and Comfortable
HEENT: NormoCephalic, Anicteric, Moist mucous membranes, Atraumatic, PERRLA and Oxygen
Respiratory: Clear
Cardiac: S1/S2 and Regular Rhythm
Breast: Deferred by me
GI: Soft, Non Tender, Non Distended and Normal Bowel Sounds
Rectal: Deferred by Provider
Genito-urinary: Costovertebral angle tend (left-sided flank pain)
Musculoskeletal: No Clubbing, No Cyanosis, Edema, Left Lower Extremity (trace) and Edema, Right Lower Extremity (trace)
Skin: Warm
Neuro: Awake, Oriented (oriented to person and place, missed the year) and Nonfocal/grossly intact
Hematologic/Lymphatic: No Lymphadenopathy
Psych: Calm
Laboratory Results
-
01/30/25 15:47
01/30/25 18:31
Laboratory Results
Lactic Acid Cancelled 01/30/25 22:15
Total Bilirubin 0.7 mg/dl (0.2-1.3) 01/30/25 18:31
AST 28 U/L (14-36) 01/30/25 18:31
ALT 17 U/L (0-35) 01/30/25 18:31
Alkaline Phosphatase 85 U/L (38-126) 01/30/25 18:31
Data Reviewed
-
Diagnostic Radiology: Report Reviewed by me
Medical Tests (Nuc Med, Echo, EKG etc): Image Personally Visualized and interpreted
Lab Data: Labs Reviewed by me
Old Records: Reviewed
Impression/Plan
-
IMPRESSION:
79-year-old with multiple comorbidities including type 1 diabetes, CHF, paroxysmal atrial fibrillation on anticoagulation, urinary retention status post chronic indwelling catheter, recurrent urinary tract infections presenting to the emergency
department with chills, weakness, confusion and positive UA concerning for recurrent UTI. Despite indwelling urinary cath that today feels like her symptoms is typical of urinary tract infection. Patient also has left-sided flank pain on
examination.
PLAN:
UTI -indwelling catheter, history of Klebsiella.
- Admit to MedSurg
- Urine cultures
- Start ertapenem, consider one-time dose of fosfomycin when ready to be discharged
- Blood cultures if spike fever
-ID consultation
CHF -on baseline home oxygen, slight to small left pleural effusion without pulmonary edema. No acute exacerbation
- Continue furosemide 40 mg daily
-Daily weight
AFIB -rate controlled
- Continue Amio
- Continue apixaban
DMII
- Lantus 5 at bedtime
- Sliding scale insulin
DVT prophylaxis�on apixaban
CODE STATUS�full code
--- NOTE | 2025-01-30 21:57 | PTCARENOTE ---
Pt arrived onto floor @2156. Pt AAOx2 and a line puller to the bed. Pt with no complaints of SOB at this time, on 4L of O2. Pt oriented to room and call estrada; will continue to monitor
[2025-01-30] MEDS: DEPAKOTE (12 HR RELEASE) 500 MG PO (22:59)
[2025-01-30] MEDS: NEURONTIN 100 MG PO (22:59)
[2025-01-30] MEDS: FOLVITE 1 MG PO (23:00)
[2025-01-31 05:59] VITALS: BMI 29.5
[2025-01-31] MEDS: SYNTHROID 125 MCG PO (06:19)
[2025-01-31 07:08] VITALS: BP 129/58
[2025-01-31 07:52] LABS: Glucose - Point of Care 219 mg/dl (70-99)
[2025-01-31] MEDS: NOVOLOG FLEXPEN-LOW RESISTANCE 2 UNITS SC (08:02)
[2025-01-31] MEDS: VISBIOME 1 CAP PO (08:03)
[2025-01-31] MEDS: CYMBALTA DELAYED RELEASE 30 MG PO (08:03)
[2025-01-31] MEDS: LASIX 40 MG PO (08:03)
[2025-01-31] MEDS: NEURONTIN 100 MG PO ×3 (08:03→20:51)
[2025-01-31] MEDS: FEOSOL 325 MG PO (08:04)
[2025-01-31] MEDS: PROTONIX 40 MG PO (08:04)
[2025-01-31] MEDS: ELIQUIS 5 MG PO ×2 (08:04→20:51)
[2025-01-31] MEDS: PACERONE 200 MG PO (08:04)
[2025-01-31] MEDS: LIPITOR 40 MG PO (08:05)
[2025-01-31] MEDS: MAG-TAB SR 84 MG PO (08:05)
[2025-01-31] MEDS: LIDOCAINE 4% PATCH 1 PATCH TOPICAL (08:05)
[2025-01-31] MEDS: VITAMIN D3 (cholecalciferol) 50 MCG PO (08:07)
[2025-01-31] MEDS: LANTUS 0.05 UNITS SC (08:07)
[2025-01-31 10:06] LABS: Hematocrit 29.3 % (37.0-47.0); Hemoglobin 9.6 g/dL (12.0-16.0); Mean Corp Hgb Conc. 32.8 g/dL (33.0-37.0); Mean Corpuscular Hgb 27.4 pg (27.0-31.0); Mean Corpuscular Volume 83.7 fL (81.0-99.0); Mean Platelet Volume 10.3 fL (7.4-10.4); Platelet Count 300 10^3/uL (130-400); Red Cell Dist. Width 16.4 % (11.5-14.5); White Blood Cell Count 9.5 10^3/uL (4.8-10.8)
[2025-01-31 10:46] LABS: Blood Urea Nitrogen 45 mg/dl (7-17); Calcium 9.4 mg/dl (8.4-10.2); Carbon Dioxide 29 mmol/L (22-30); Chloride 98 mmol/L (98-107); Estimated Creatinine Clearance 39 ml/min; Glucose 171 mg/dl (70-99); Potassium 4.5 mmol/L (3.5-5.1); Sodium 136 mmol/L (135-145); eGFR 51.75
[2025-01-31 12:04] LABS: Glucose - Point of Care 299 mg/dl (70-99)
[2025-01-31] MEDS: NOVOLOG FLEXPEN-LOW RESISTANCE 3 UNITS SC (12:12)
--- NOTE | 2025-01-31 15:18 | CM ---
manager corporate communications reviewed patient's chart and patient was admitted under OBS, VAN letter explained to patient signed and placed on chart, patient reports that she lives alone in 2 story home has 1st floor set up with bed and bathroom, patient is
independent with adl's and uses a walker with ambulation, patient has home oxygen at 2 liters in home.
PCP: Gloria Allison
Pharmacy: Patient to switch to [facility].
Plan; Home with [facility] visiting nurses, [facility]
--- NOTE | 2025-01-31 15:57 | W.PN.HOSP.TC ---
Today's Communication/Plan
-
empiric tx of uti pending cx
PT/OT
Assessment / Plan
Assessment / Plan
79-year-old with multiple comorbidities including type 2 diabetes, CHF, paroxysmal atrial fibrillation on anticoagulation, urinary retention status post chronic indwelling catheter, recurrent urinary tract infections presenting to the emergency
department with chills, weakness, confusion and positive UA concerning for recurrent UTI. Despite indwelling urinary cath that today feels like her symptoms is typical of urinary tract infection. Patient also has left-sided flank pain on
examination on admission. Multifactorial failure to thrive
PLAN:
UTI -indwelling catheter, history of Klebsiella.
- Admit to MedSur
- Urine cultures
- Start ertapenem, consider one-time dose of fosfomycin when ready to be discharged
- Blood cultures if spike fever
-ID consultation
CHF -on baseline home oxygen, slight to small left pleural effusion without pulmonary edema. No acute exacerbation
- Continue furosemide 40 mg daily
-Daily weight
AFIB -rate controlled
- Continue Amio
- Continue apixaban
DMII
- Lantus 5 at bedtime
- Sliding scale insulin
DVT prophylaxis�on apixaban
CODE STATUS�full code
Anticipated Discharge: > 48 hours
Subjective/Interval History
-
Date of Service: January 31, 2025
starting to feel a little better
Objective Data
-
Labs:
Laboratory Results
01/31/25 01/31/25
08:44 09:54
WBC 9.5
Hgb 9.6 L
Hct 29.3 L
Plt Count 300
Sodium 136
Potassium 4.5
Chloride 98
Carbon Dioxide 29
BUN 45 H
Creatinine 1.1 H
Glucose 171 H
Calcium 9.4
Vital Signs:
Vital Signs
Temp Pulse Resp BP Pulse Ox
98.4 F 69 24 129/58 94
01/31/25 07:08 01/31/25 07:08 01/31/25 07:08 01/31/25 07:08 01/31/25 07:08
I&O
01/30/25 01/31/25 02/01/25
06:59 06:59 06:59
Intake Total 720 / 720
Output Total 450 / 450
Balance 270 / 270
Review of Systems
-
History Source: Patient and Coordinated Provider
EENT: Reports No Symptoms Reported
Respiratory: Reports No Symptoms
Cardiac: Reports No Symptoms; Denies Chest Pain
Physical Exam
-
General: Well Developed, Well Nourished and No Apparent Distress
HEENT: Normocephalic, Atraumatic and Moist Mucous Membranes
Respiratory: Clear to Auscultation; Negative Wheezes, Rales or Rhonchi
Cardiac: Regular Rhythm and S1/S2
GI: Soft, Nontender and Nondistended
[2025-01-31 15:58] VITALS: BP 90/66
[2025-01-31] MEDS: TYLENOL 650 MG PO (16:04)
[2025-01-31 18:00] LABS: Glucose - Point of Care 370 mg/dl (70-99)
[2025-01-31] MEDS: NOVOLOG FLEXPEN-LOW RESISTANCE 5 UNITS SC (18:11)
[2025-01-31] MEDS: FOLVITE 1 MG PO (20:51)
[2025-01-31] MEDS: DEPAKOTE (12 HR RELEASE) 500 MG PO (20:51)
[2025-01-31] MEDS: DESENEX/MITRAZOL/ZEASORB 1 APPLIC TOPICAL (20:56)
[2025-01-31] MEDS: INVANZ 60 MG IV (20:57)
[2025-01-31 21:28] LABS: Glucose - Point of Care 276 mg/dl (70-99)
[2025-01-31 23:08] VITALS: BP 114/55
[2025-02-01] MEDS: SYNTHROID 125 MCG PO (05:28)
[2025-02-01 05:57] VITALS: BMI 29.4
[2025-02-01 07:10] VITALS: BP 133/53
[2025-02-01 07:18] LABS: Glucose - Point of Care 277 mg/dl (70-99)
[2025-02-01] MEDS: LANTUS 0.05 UNITS SC (07:41)
[2025-02-01] MEDS: NOVOLOG FLEXPEN-LOW RESISTANCE 3 UNITS SC (07:41)
[2025-02-01] MEDS: NEURONTIN 100 MG PO ×3 (07:42→20:38)
[2025-02-01] MEDS: PACERONE 200 MG PO (07:42)
[2025-02-01] MEDS: PROTONIX 40 MG PO (07:42)
[2025-02-01] MEDS: MAG-TAB SR 84 MG PO (07:42)
[2025-02-01] MEDS: ELIQUIS 5 MG PO ×2 (07:42→20:37)
[2025-02-01] MEDS: LIDOCAINE 4% PATCH 1 PATCH TOPICAL (07:42)
[2025-02-01] MEDS: FEOSOL 325 MG PO (07:42)
[2025-02-01] MEDS: LIPITOR 40 MG PO (07:43)
[2025-02-01] MEDS: DESENEX/MITRAZOL/ZEASORB 1 APPLIC TOPICAL ×2 (07:43→20:40)
[2025-02-01] MEDS: LASIX 40 MG PO (07:43)
[2025-02-01] MEDS: CYMBALTA DELAYED RELEASE 30 MG PO (07:43)
[2025-02-01] MEDS: VISBIOME 1 CAP PO (07:43)
[2025-02-01] MEDS: VITAMIN D3 (cholecalciferol) 50 MCG PO (07:44)
[2025-02-01 08:30] VITALS: BP 138/87; BP 91/50; PULSE 67; O2SAT 96
[2025-02-01 09:55] VITALS: BP 138/87; BP 91/60; O2SAT 97
[2025-02-01 11:47] LABS: Glucose - Point of Care 367 mg/dl (70-99)
[2025-02-01] MEDS: NOVOLOG FLEXPEN-LOW RESISTANCE 5 UNITS SC (11:52)
--- NOTE | 2025-02-01 13:13 | WOUNDNOTE ---
BILATERAL LOWER EXTREMITIES
--- NOTE | 2025-02-01 13:14 | WOUNDNOTE ---
LEFT DORSAL FOOT
--- NOTE | 2025-02-01 13:16 | WOUNDNOTE ---
SACRUM/BUTTOCKS 1945, #[id number]
--- NOTE | 2025-02-01 14:02 | WOUNDNOTE ---
WO RN note: Patient admitted with UTI
See H&P for complete history.
PMH: Afib, CHF< CAD, HTN, FL, Fibromyalgia, anxiety, depression.
Wound Location and type/assessment: Patient admitted with left foot dorsal wound intact blister. Patient also noted to have left heel dried scabbed area and right heel dried blister. When turning patient a stage 2 of left coccyx was found. Wound is
superficial and friable. Bloody noted on foam dressing. Patient also had intact scab on left knee and felton. Patient required the assistance of 2 people to turn. [place] in place for moisture management. Bed was clean and dry at time of assessment.
Appetite: Per chart review appears fair.
Pressure redistribution devices in place: Static air overlay added to bed, turning schedule added to care plan.
Plan: Local wound care provided to stage 2 with Calazime and silicone foam dressing. Foam applied to left dorsal blister and bilateral heels. LUNA Lacey given update. Will confirm orders with hospitalist and update nurse.
Updated care plan and will follow as needed.
Note to case management of equipment requested for discharge:
Recommend follow up at wound care center upon discharge.
[2025-02-01 15:05] VITALS: BP 118/54
[2025-02-01 16:42] LABS: Glucose - Point of Care 302 mg/dl (70-99)
[2025-02-01] MEDS: NOVOLOG FLEXPEN-LOW RESISTANCE 4 UNITS SC (17:06)
--- NOTE | 2025-02-01 18:19 | W.PN.HOSP.TC ---
Today's Communication/Plan
-
continue current Tx
Assessment / Plan
Assessment / Plan
79-year-old with multiple comorbidities including type 2 diabetes, CHF, paroxysmal atrial fibrillation on anticoagulation, urinary retention status post chronic indwelling catheter, recurrent urinary tract infections presenting to the emergency
department with chills, weakness, confusion and positive UA concerning for recurrent UTI. Despite indwelling urinary cath that today feels like her symptoms is typical of urinary tract infection. Patient also has left-sided flank pain on
examination on admission. Multifactorial failure to thrive. Pt is chronically ill with heavy burden of pathology.
PLAN:
UTI -indwelling catheter, history of Klebsiella.
- Admit to MedSurg
- Urine cultures
- Start ertapenem, consider one-time dose of fosfomycin when ready to be discharged
- Blood cultures if spike fever
-consider ID consultation
CHF -HFpEF on baseline home oxygen, slight to small left pleural effusion without pulmonary edema. No acute exacerbation
- Continue furosemide 40 mg daily
-Daily weight
Hx of CVA
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
Paroxysmal AFIB -rate controlled
- Continue Amio
- Continue apixaban
DMII
- Lantus 5 at bedtime
- Sliding scale insulin
discussed with dgt, Minda. Understands limitations, is considering a percutaneous tobin and has appt with [facility] in February. Cva ~5 yrs ago, very limited mobility. Does want to take home, pt would not want a SNF and dgt wishes to respect this.
Urine cx was neg for UTI, but pt with pos UA, would tx for 3 doses of Ertapenem and then plan dc.
Pt with complex medical situation, will change status to full admit
DVT prophylaxis�on apixaban
CODE STATUS�full code
Anticipated Discharge: 24 - 48 hours
Subjective/Interval History
-
Date of Service: February 01, 2025
more alert
Objective Data
-
Vital Signs:
Vital Signs
Temp Pulse Resp BP Pulse Ox
97.8 F 62 20 118/54 98
02/01/25 15:05 02/01/25 15:05 02/01/25 15:05 02/01/25 15:05 02/01/25 15:05
I&O
01/31/25 02/01/25 02/02/25
06:59 06:59 06:59
Intake Total 720 / 720 600 / 600 540 / 540
Output Total 450 / 450 450 / 450 325 / 325
Balance 270 / 270 150 / 150 215 / 215
Review of Systems
-
History Source: Patient and Coordinated Provider
EENT: Reports No Symptoms Reported
Respiratory: Reports No Symptoms
Cardiac: Reports No Symptoms; Denies Chest Pain
Abdomen/GI: Reports No Symptoms
Genitourinary: Reports No Symptoms; Denies Dysuria (resolved)
Physical Exam
-
General: Well Developed, Well Nourished and No Apparent Distress
HEENT: Normocephalic, Atraumatic and Moist Mucous Membranes
Respiratory: Clear to Auscultation; Negative Wheezes, Rales or Rhonchi
Cardiac: Regular Rhythm and S1/S2
GI: Soft, Nontender and Nondistended
[2025-02-01] MEDS: INVANZ 60 MG IV (20:37)
[2025-02-01] MEDS: FOLVITE 1 MG PO (20:38)
[2025-02-01] MEDS: DEPAKOTE (12 HR RELEASE) 500 MG PO (20:38)
[2025-02-01 21:24] LABS: Glucose - Point of Care 253 mg/dl (70-99)
[2025-02-01 23:05] VITALS: BP 162/64
[2025-02-02] MEDS: SYNTHROID 125 MCG PO (05:21)
[2025-02-02 06:00] VITALS: BMI 30.1
[2025-02-02 07:10] VITALS: BP 141/61
[2025-02-02 07:20] LABS: Glucose - Point of Care 275 mg/dl (70-99)
[2025-02-02] MEDS: NOVOLOG FLEXPEN-LOW RESISTANCE 3 UNITS SC (07:40)
[2025-02-02] MEDS: LANTUS 0.05 UNITS SC (07:42)
[2025-02-02] MEDS: ELIQUIS 5 MG PO ×2 (07:43→21:00)
[2025-02-02] MEDS: PROTONIX 40 MG PO (07:43)
[2025-02-02] MEDS: LASIX 40 MG PO (07:43)
[2025-02-02] MEDS: VITAMIN D3 (cholecalciferol) 50 MCG PO (07:43)
[2025-02-02] MEDS: LIPITOR 40 MG PO (07:43)
[2025-02-02] MEDS: MAG-TAB SR 84 MG PO (07:43)
[2025-02-02] MEDS: FEOSOL 325 MG PO (07:44)
[2025-02-02] MEDS: LIDOCAINE 4% PATCH 1 PATCH TOPICAL (07:44)
[2025-02-02] MEDS: PACERONE 200 MG PO (07:44)
[2025-02-02] MEDS: CYMBALTA DELAYED RELEASE 30 MG PO (07:47)
[2025-02-02] MEDS: DESENEX/MITRAZOL/ZEASORB 1 APPLIC TOPICAL ×2 (07:48→21:18)
[2025-02-02] MEDS: VISBIOME 1 CAP PO (07:48)
[2025-02-02] MEDS: NEURONTIN 100 MG PO ×3 (07:49→21:04)
[2025-02-02 10:58] LABS: Glucose - Point of Care 311 mg/dl (70-99)
[2025-02-02] MEDS: NOVOLOG FLEXPEN-LOW RESISTANCE 4 UNITS SC ×2 (11:25→16:36)
--- NOTE | 2025-02-02 11:36 | CM ---
Chart reviewed and patient plans on returning to home when stable, patient has been using a Magy lift, and requires assist of 2, patient requires 2 liters of oxygen, lives with spouse has family supports and visiting nurses from [facility]. Plan
home with [facility] visiting nurses when stable.
[facility]
[phone]
[2025-02-02 15:15] VITALS: BP 123/49
[2025-02-02 16:32] LABS: Glucose - Point of Care 306 mg/dl (70-99)
--- NOTE | 2025-02-02 17:27 | W.PN.HOSP.TC ---
Today's Communication/Plan
-
recheck labs in AM
Assessment / Plan
Assessment / Plan
79-year-old with multiple comorbidities including type 2 diabetes, CHF, paroxysmal atrial fibrillation on anticoagulation, urinary retention status post chronic indwelling catheter, recurrent urinary tract infections presenting to the emergency
department with chills, weakness, confusion and positive UA concerning for recurrent UTI. Despite indwelling urinary cath that today feels like her symptoms is typical of urinary tract infection. Patient also has left-sided flank pain on
examination on admission. Multifactorial failure to thrive. Pt is chronically ill with heavy burden of pathology.
PLAN:
UTI -indwelling catheter, history of Klebsiella.
- Admit to MedSur
- Urine cultures are negative, but pt has a chronic tobin and UA demonstrates mixed meagan, thus could be real
- Continue ertapenem, until dc
- Blood cultures if spike fever
CHF -HFpEF on baseline home oxygen, slight to small left pleural effusion without pulmonary edema. No acute exacerbation
- Continue furosemide 40 mg daily
-Daily weight
Hx of CVA
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
Paroxysmal AFIB -rate controlled
- Continue Amio
- Continue apixaban
DMII
- Lantus 5 at bedtime
- Sliding scale insulin
discussed with dgt, Minda. Understands limitations, is considering a percutaneous tobin and has appt with [facility] in February. Cva ~5 yrs ago, very limited mobility. Does want to take home, pt would not want a SNF and dgt wishes to respect this.
Urine cx was neg for UTI, but pt with pos UA, would tx for 3 doses of Ertapenem and then plan dc.
She has definitely improved and dgt feels comfortable taking pt home tomorrow morning
DVT prophylaxis�on apixaban
CODE STATUS�full code
Anticipated Discharge: Within 24 hours
Subjective/Interval History
-
Date of Service: February 02, 2025
Mentation doing better, as per dgt approaching baseline status, but not yet there
Objective Data
-
Vital Signs:
Vital Signs
Temp Pulse Resp BP Pulse Ox
98.0 F 61 20 123/49 100
02/02/25 15:15 02/02/25 15:15 02/02/25 15:15 02/02/25 15:15 02/02/25 15:15
I&O
02/01/25 02/02/25 02/03/25
06:59 06:59 06:59
Intake Total 600 / 600 540 / 540
Output Total 450 / 450 725 / 725
Balance 150 / 150 -185 / -185
Review of Systems
-
History Source: Patient and Coordinated Provider
EENT: Reports No Symptoms Reported
Respiratory: Reports No Symptoms
Cardiac: Reports No Symptoms; Denies Chest Pain
Abdomen/GI: Reports No Symptoms
Genitourinary: Reports No Symptoms; Denies Dysuria (resolved)
Physical Exam
-
General: Well Developed, Well Nourished and No Apparent Distress
HEENT: Normocephalic, Atraumatic and Moist Mucous Membranes
Respiratory: Clear to Auscultation; Negative Wheezes, Rales or Rhonchi
Cardiac: Regular Rhythm and S1/S2
GI: Soft, Nontender and Nondistended
[2025-02-02] MEDS: DEPAKOTE (12 HR RELEASE) 500 MG PO (21:04)
[2025-02-02] MEDS: FOLVITE 1 MG PO (21:04)
[2025-02-02] MEDS: INVANZ 60 MG IV (21:17)
[2025-02-02 21:28] LABS: Glucose - Point of Care 267 mg/dl (70-99)
[2025-02-02] MEDS: TYLENOL 650 MG PO (21:28)
[2025-02-02 23:21] VITALS: BP 140/55
[2025-02-03] MEDS: SYNTHROID 125 MCG PO (05:08)
[2025-02-03 06:00] VITALS: BMI 29.3
[2025-02-03 07:20] VITALS: BP 133/57
[2025-02-03 07:56] LABS: Glucose - Point of Care 275 mg/dl (70-99)
[2025-02-03] MEDS: LANTUS 0.05 UNITS SC (08:36)
[2025-02-03] MEDS: NOVOLOG FLEXPEN-LOW RESISTANCE 3 UNITS SC (08:37)
[2025-02-03] MEDS: LIDOCAINE 4% PATCH 1 PATCH TOPICAL (08:37)
[2025-02-03] MEDS: NEURONTIN 100 MG PO (08:38)
[2025-02-03] MEDS: PACERONE 200 MG PO (08:38)
[2025-02-03] MEDS: CYMBALTA DELAYED RELEASE 30 MG PO (08:39)
[2025-02-03] MEDS: VISBIOME 1 CAP PO (08:39)
[2025-02-03] MEDS: LIPITOR 40 MG PO (08:39)
[2025-02-03] MEDS: VITAMIN D3 (cholecalciferol) 50 MCG PO (08:39)
[2025-02-03] MEDS: ELIQUIS 5 MG PO (08:39)
[2025-02-03] MEDS: DESENEX/MITRAZOL/ZEASORB 1 APPLIC TOPICAL (08:39)
[2025-02-03] MEDS: PROTONIX 40 MG PO (08:39)
[2025-02-03] MEDS: MAG-TAB SR 84 MG PO (08:39)
[2025-02-03] MEDS: FEOSOL 325 MG PO (08:39)
[2025-02-03] MEDS: LASIX 40 MG PO (08:39)
[2025-02-03 09:00] LABS: % Basophils 1.4 % (0-2); % Eosinophils 7.2 % (0-6); % Immature Granulocytes 0.5 % (0-0.5); % Lymphocytes 16.8 % (20.5-51.1); % Neutrophils 65.1 % (42.2-75.2); Absolute Basophils 0.1 10^3/uL (0-0.2); Absolute Eosinophils 0.5 10^3/uL (0-0.7); Absolute Lymphocytes 1.1 10^3/uL (1.2-3.4); Absolute Monocytes 0.6 10^3/uL (0.1-0.6); Absolute Neutrophils 4.2 10^3/uL (1.4-6.5); Hemoglobin 10.1 g/dL (12.0-16.0); Mean Corp Hgb Conc. 32.6 g/dL (33.0-37.0); Mean Corpuscular Hgb 27.7 pg (27.0-31.0); Mean Corpuscular Volume 84.9 fL (81.0-99.0); Nucleated Red Blood Cells % 0 %; Platelet Count 324 10^3/uL (130-400); Red Blood Cell Count 3.65 10^6/uL (4.20-5.40); Red Cell Dist. Width 15.9 % (11.5-14.5); White Blood Cell Count 6.4 10^3/uL (4.8-10.8)
[2025-02-03 09:13] LABS: Blood Urea Nitrogen 30 mg/dl (7-17); Calcium 8.9 mg/dl (8.4-10.2); Carbon Dioxide 34 mmol/L (22-30); Chloride 101 mmol/L (98-107); Estimated Creatinine Clearance 47 ml/min; Glucose 267 mg/dl (70-99); Potassium 4.3 mmol/L (3.5-5.1); Sodium 140 mmol/L (135-145); eGFR > 60.00
[2025-02-03 11:44] VITALS: BP 110/50
[2025-02-03 12:33] LABS: Glucose - Point of Care 372 mg/dl (70-99)
[2025-02-03] MEDS: NOVOLOG FLEXPEN-LOW RESISTANCE 5 UNITS SC (13:08)
--- NOTE | 2025-02-03 13:17 | W.PN.HOSP.TC ---
Today's Communication/Plan
-
dc to home
Assessment / Plan
Assessment / Plan
79-year-old with multiple comorbidities including type 2 diabetes, CHF, paroxysmal atrial fibrillation on anticoagulation, urinary retention status post chronic indwelling catheter, recurrent urinary tract infections presenting to the emergency
department with chills, weakness, confusion and positive UA concerning for recurrent UTI. Despite indwelling urinary cath that today feels like her symptoms is typical of urinary tract infection. Patient also has left-sided flank pain on
examination on admission. Multifactorial failure to thrive. Pt is chronically ill with heavy burden of pathology.
PLAN:
UTI -indwelling catheter, history of Klebsiella.
- Admit to MedSur
- Urine cultures are negative, but pt has a chronic tobin and UA demonstrates mixed meagan, thus could be real
- Continue ertapenem, until dc
- Blood cultures if spike fever
CHF -HFpEF on baseline home oxygen, slight to small left pleural effusion without pulmonary edema. No acute exacerbation
- Continue furosemide 40 mg daily
-Daily weight
Hx of CVA
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
Paroxysmal AFIB -rate controlled
- Continue Amio
- Continue apixaban
DMII
- Lantus 5 at bedtime
- Sliding scale insulin
discussed with dgt, Minda. Understands limitations, is considering a percutaneous tobin and has appt with [facility] in February. Cva ~5 yrs ago, very limited mobility. Does want to take home, pt would not want a SNF and dgt wishes to respect this.
Urine cx was neg for UTI, but pt with pos UA, would tx for 3 doses of Ertapenem and then plan dc.
She has definitely improved and dgt feels comfortable taking pt home tomorrow morning
DVT prophylaxis�on apixaban
CODE STATUS�full code
dc to home
see dictated note
Anticipated Discharge: Today
Subjective/Interval History
-
Date of Service: February 03, 2025
Mentation better, not quite back to baseline, but better
Objective Data
-
Labs:
Laboratory Results
02/03/25
08:37
WBC 6.4
Hgb 10.1 L
Hct 31.0 L
Plt Count 324
Sodium 140
Potassium 4.3
Chloride 101
Carbon Dioxide 34 H
BUN 30 H
Creatinine 0.9
Glucose 267 H
Calcium 8.9
Vital Signs:
Vital Signs
Temp Pulse Resp BP Pulse Ox
97.9 F 68 18 110/50 94
02/03/25 11:44 02/03/25 11:44 02/03/25 11:44 02/03/25 11:44 02/03/25 11:44
I&O
02/02/25 02/03/25 02/04/25
06:59 06:59 06:59
Intake Total 540 / 540 480 / 480
Output Total 725 / 725 1300 / 1300
Balance -185 / -185 -820 / -820
Review of Systems
-
History Source: Patient and Coordinated Provider
EENT: Reports No Symptoms Reported
Respiratory: Reports No Symptoms
Cardiac: Reports No Symptoms; Denies Chest Pain
Abdomen/GI: Reports No Symptoms
Genitourinary: Reports No Symptoms; Denies Dysuria (resolved)
Physical Exam
-
General: Well Developed, Well Nourished and No Apparent Distress
HEENT: Normocephalic, Atraumatic and Moist Mucous Membranes
Respiratory: Clear to Auscultation; Negative Wheezes, Rales or Rhonchi
Cardiac: Regular Rhythm and S1/S2
GI: Soft, Nontender and Nondistended
--- NOTE | 2025-02-03 13:26 | W.DS.TRANS ---
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
-
Discharge Instructions:
Discharge Diagnosis/Procedures UTI
Diet Regular
Activity With assistance
Driving Restrictions No driving
Bathing Restrictions None
Blood Work CBC, CMP, UA with C&S in 2 weeks
Other Services VN
Instructions:
Stand-Alone Forms:
Changes to Home Medications: No
Discharge Medications:
DC Medications w/original date entered in [facility]
atorvastatin 40 mg tablet (Lipitor) 40 mg PO DAILY High Cholesterol 05/17/23
divalproex 500 mg tablet,delayed release 500 mg PO HS rls 05/17/23
folic acid 1 mg tablet 1 mg PO HS Supplement 05/17/23
vitamin B complex 1 tab PO DAILY Supplement 05/17/23
amiodarone 200 mg tablet (Pacerone) 200 mg PO DAILY Arrhythmia #0 tabs 01/26/24
apixaban 5 mg tablet (Eliquis) 5 mg PO BID Blood clot prevention/tx #0 tabs 01/26/24
cholecalciferol (vitamin D3) 50 mcg (2,000 unit) tablet 50 mcg PO DAILY Supplement #0 tabs 01/26/24
pantoprazole 40 mg tablet,delayed release 40 mg PO DAILY Gastrointestinal issue #0 tabs 01/26/24
magnesium oxide 400 mg PO DAILY Supplement 03/20/24
ferrous sulfate 325 mg (65 mg iron) tablet 325 mg PO DAILY Supplement 08/13/24
gabapentin 100 mg capsule 100 mg PO TID Neurological Condition 08/13/24
insulin lispro 100 unit/mL subcutaneous pen (Humalog KwikPen (U-100) Insulin) 0 unit SC AC Diabetes 08/13/24
levothyroxine 125 mcg tablet 125 mcg PO DAILY@06 Thyroid 08/13/24
acetaminophen 500 mg tablet 1,000 mg PO Q6HPRN PRN fever or mild pain 09/14/24
duloxetine 30 mg capsule,delayed release 30 mg PO DAILY Depression 09/14/24
insulin glargine 100 unit/mL subcutaneous solution 8 unit SC DAILY Diabetes 09/14/24
lidocaine 5 % topical patch 1 patch topical DAILY right shoulder 09/14/24
Lactobacillus acidophilus (Acidophilus capsule) 10 mg PO DAILY Supplement 01/30/25
furosemide 80 mg tablet 40 mg PO DAILY Heart Failure 01/30/25
Home Medication Changes
Pending Results: No
--- NOTE | 2025-02-03 13:34 | CM ---
Patient stable for d/c today. Patient current w/ [facility]
Ambulance transport to be arranged. Forms faxed to to schedule. Confirmed w/ spouse home address, confirmed there are 2 steps into the home, patient resides on the first floor. will be home to receive patient
No other CM needs at this time
[facility]

Plan: Home, [place] w/ [facility]
--- NOTE | 2025-02-03 15:02 | PTCARENOTE ---
Daughter Minda was given discharge instructions over the phone per pt's request. instructions sent with pt via acute care ambulance.
== END 2025-02-03 15:04 | disposition home health service (06) | DRG 689 ==
LOC: 4 WEST ACU 13:16
PROVIDERS: ADMITTING PHYSICIAN Internal Medicine; ATTENDING PHYSICIAN Internal Medicine; EMERGENCY PHYSICIAN Emergency Medicine; FAMILY PHYSICIAN Nurse Practitioner Adult Health
DX: N39.0 Urinary tract infection, site not specified (principal); G93.41 Metabolic encephalopathy; I50.22 Chronic systolic (congestive) heart failure; I48.21 Permanent atrial fibrillation; F17.200 Nicotine dependence, unspecified, uncomplicated; Z79.899 Other long term (current) drug therapy; Z79.01 Long term (current) use of anticoagulants; N18.30 Chronic kidney disease, stage 3 unspecified; E10.22 Type 1 diabetes mellitus with diabetic chronic kidney disease; Z86.73 Personal history of transient ischemic attack (TIA), and cerebral infarction without residual deficits; Z87.440 Personal history of urinary (tract) infections; R62.7 Adult failure to thrive; Z79.4 Long term (current) use of insulin; E11.9 Type 2 diabetes mellitus without complications; Z60.2 Problems related to living alone
CPT/HCPCS: 71045; 80048; 80053; 81003; 81015; 82962; 83605; 83880; 85025; 85027; 87040; 87070; 87086; 93005; 96365; 97163; 97167; 99285; J1335

== ENCOUNTER 2025-05-14 06:34 | Day surgery (SDC) | payer MEDICARE, OTHER, SELFPAY ==
--- NOTE | 2025-05-09 09:05 | CM ---
Addendum entered by Amy Lal RN 05/09/25 11:33:
[facility] declined. CM spoke with central intake and they confirmed patient is current with [facility]. CM will continue to follow patient.
Original Note:
CM was consulted regarding this patient's transportation and home situation. Patient is well known to CM. Patient is dependent for transfers. [facility].
CM sent referral via [facility] for [place] post operatively.
[facility]AN[facility].
[2025-05-14] VITALS (20 sets, daily range): BP systolic 101–213; BP diastolic 41–193; BMI 28.3
[2025-05-14 08:29] LABS: Glucose - Point of Care 196 mg/dl (70-99)
[2025-05-14] MEDS: NORMOSOL-R/PLASMALYTE-A 1000 IV (08:40)
[2025-05-14 09:54] LABS: Glucose - Point of Care 195 mg/dl (70-99)
[2025-05-14] MEDS: NOVOLOG vial 1 UNITS SC (10:26)
[2025-05-14] MEDS: SUBLIMAZE 50 MCG IV ×2 (10:34→11:04)
== END 2025-05-14 14:50 | disposition home or self-care (01) ==
LOC: SDS 06:34
PROVIDERS: ATTENDING PHYSICIAN Surgery; FAMILY PHYSICIAN Nurse Practitioner Adult Health
DX: N31.9 Neuromuscular dysfunction of bladder, unspecified (principal); R32 Unspecified urinary incontinence; R33.8 Other retention of urine
CPT/HCPCS: 51040; 82962; J1580; J2185

== ENCOUNTER 2025-05-26 19:27 | Emergency (ER) | payer MEDICARE, OTHER, SELFPAY ==
[2025-05-26 19:32] VITALS: BP 149/65
--- NOTE | 2025-05-26 19:37 | ED.GENMED ---
History of Present Illness
<Gopi Samson MD, Resident - Last Filed: 05/26/25 22:50>
General
Chief Complaint: Catheter/Tube Problem
Source: patient
Exam Limitations: none
Time Seen by Provider: 05/26/25 19:30
History of Present Illness
History of Present Illness:
79-year-old female who presents to the emergency department via EMS after she cut her suprapubic catheter that she had inserted 3 weeks ago here at [place]. The reason why she cut it was because she said she had suprapubic pain that had gotten
progressively worse from the day she had her catheter placed, and over the past few days had gotten intolerable. Associated with surrounding erythema around the site where stitches were placed. No fever, chills, nausea, vomiting, diarrhea,
vomiting, headache, urinary symptoms, hematuria, acute mental status changes.
Past History
<Gopi Samson MD, Resident - Last Filed: 05/26/25 22:50>
Past History
ED Past Medical History: Arrthythmia (Atrial fibrillation), CAD, CHF, HTN, Hypercholesterolemia and IDDM
ED Past Surgical History: Appendectomy, Cholecystectomy and Orthopedic
Social History
Tobacco: Non-smoker
Alcohol: None
Drug: Other
Personal:
Living: with family
Employment: Retired
Family History
Family History: Other
Review of Systems
<Gopi Samson MD, Resident - Last Filed: 05/26/25 22:50>
Review of Systems
Allergies reviewed?: Yes
Other source history: family
All Other Systems: ROS reviewed and negative except as documented in HPI and ROS
Phy Exam
<Gopi Samson MD, Resident - Last Filed: 05/26/25 22:50>
General Physical Exam
General Presentation: well appearing and mild distress
General Skin: warm
General Habitus: elderly
General Mental: alert
Cardiovascular Exam
Cardiovascular Exam: regular rate/rhythm and no edema
Pulmonary Exam
Pulmonary Exam: lungs clear and no respiratory distress
Gastrointestinal Exam
Gastrointestinal Exam: normal bowel sounds, soft, non distended and tender (on inspection, there is erythema of the site where stitches were placed on left lateral side. Tenderness to palpation of the suprapubic site. No purulent drainage or active
bleeding. Slight urine leakage from remaining catheter end.)
Neurological Exam
Neurological Exam: alert and oriented x3
Musculoskeletal Exam
Musculoskeletal Exam: full ROM
Skin Exam
Skin Exam: normal color and warm/dry
Course
<Gopi Samson MD, Resident - Last Filed: 05/26/25 22:50>
Orders/Labs/Results
Orders:
Orders
05/26/25 19:42
CBC/With Diff [Complete Blood Count/With Diff] Urgent
CMP [Comprehensive Metabolic Panel] Urgent
05/26/25 20:53
Acetaminophen [Tylenol] 650 mg PO NOW STA
Abnormal Lab Results
05/26/25
19:42
RBC 3.79 L 10^6/uL
(4.20-5.40)
Hgb 10.7 L g/dL
(12.0-16.0)
Hct 32.1 L %
(37.0-47.0)
RDW 16.1 H %
(11.5-14.5)
MPV 11.0 H fL
(7.4-10.4)
Absolute Monos (auto) 0.7 H 10^3/uL
(0.1-0.6)
Carbon Dioxide 31 H mmol/L
(22-30)
BUN 27 H mg/dl
(7-17)
Creatinine 1.4 H mg/dL
(0.6-1.0)
Glucose 197 H mg/dl
(70-99)
Albumin 3.2 L g/dl
(3.5-5.0)
05/26/25 19:42
05/26/25 19:42
Vital Signs
Initial and Last Documented VS:
Initial Vital Signs
Temp Pulse Resp BP Pulse Ox
99.1 F 65 16 149/65 96
05/26/25 19:32 05/26/25 19:32 05/26/25 19:32 05/26/25 19:32 05/26/25 19:32
Last Documented Vital Signs
Temp Pulse Resp BP Pulse Ox
99.1 F 67 16 106/53 93
05/26/25 19:32 05/26/25 22:04 05/26/25 22:04 05/26/25 22:00 05/26/25 22:00
<Ra Mohan, DO - Last Filed: 05/27/25 02:02>
Orders/Labs/Results
Orders:
Orders
05/26/25 19:42
CBC/With Diff [Complete Blood Count/With Diff] Urgent
CMP [Comprehensive Metabolic Panel] Urgent
05/26/25 20:53
Acetaminophen [Tylenol] 650 mg PO NOW STA
Abnormal Lab Results
05/26/25
19:42
RBC 3.79 L 10^6/uL
(4.20-5.40)
Hgb 10.7 L g/dL
(12.0-16.0)
Hct 32.1 L %
(37.0-47.0)
RDW 16.1 H %
(11.5-14.5)
MPV 11.0 H fL
(7.4-10.4)
Absolute Monos (auto) 0.7 H 10^3/uL
(0.1-0.6)
Carbon Dioxide 31 H mmol/L
(22-30)
BUN 27 H mg/dl
(7-17)
Creatinine 1.4 H mg/dL
(0.6-1.0)
Glucose 197 H mg/dl
(70-99)
Albumin 3.2 L g/dl
(3.5-5.0)
05/26/25 19:42
05/26/25 19:42
Vital Signs
Initial and Last Documented VS:
Initial Vital Signs
Temp Pulse Resp BP Pulse Ox
99.1 F 65 16 149/65 96
05/26/25 19:32 05/26/25 19:32 05/26/25 19:32 05/26/25 19:32 05/26/25 19:32
Last Documented Vital Signs
Temp Pulse Resp BP Pulse Ox
99.1 F 67 16 106/53 93
05/26/25 19:32 05/26/25 22:04 05/26/25 22:04 05/26/25 22:00 05/26/25 22:00
<Gopi Samson MD, Resident - Last Filed: 05/26/25 22:50>
MDM/Problems Addressed
Differential Diagnosis Includes:
cellulitis, UTI, infection due indwelling suprapubic catheter, pyelonephritis, cystitis
MDM/Problems Addressed:
CBC shows hgb of 10.7 which is around her baseline, no signs/symptoms of acute bleed
CMP shows creatinine of 1.4, which is around her baseline
Urology was consulted and new suprapubic catheter was placed
As per urology, reccomend antibiotics and neosporin cream, and holding eliquis until wednesday
Will discharge patient home with Doxycycline 100 mg BID x 5 days and follow up with PCP in 5 days.
<Gopi Samson MD, Resident - Last Filed: 05/26/25 22:50>
*Pulse Oximetry
SaO2: 96
Oxygen Mode of Delivery: Room air
Patient hypoxic: no
*Critical Care Note
Total Time (30-74mins, 75-104mins- exclusive of procedures): Not Applicable
ED Attending Note
<Gopi Samson MD, Resident - Last Filed: 05/26/25 22:50>
-
Portions of this chart may have been created with voice recognition software.� Occasional wrong word or��sound alike� substitutions may have occurred due to the inherent limitations of voice recognition software.
<Ra Mohan, DO - Last Filed: 05/27/25 02:02>
ED Attending Note
Patient seen and examined by attending physician: Yes
I performed a history and physical exam of patient and discussed management with resident, I reviewed resident's note and agree with documented findings and plan of care.: Yes
ED Attending Note:
I have reviewed and agree with history treatment plan by Gopi Samson MD. My exam revealed 79-year-old female with suprapubic catheter cut and then placed to drain in a plastic bag. Suture remains in place slight erythema around ostomy. Patient
was seen by Dr. Macias, who replaced [place] catheter and removed suture. Patient placed on doxycycline for 5 days, and will follow-up with Dr. Knight.
Discharge Plan
Departure
Patient Disposition: Home (Routine Discharge)
Date of Disposition: 05/26/25
Time of Disposition: 21:12
Patient with high blood pressure during this ER visit?: No
Condition: Fair
Discharge Problem:
Suprapubic catheter
Instructions: Suprapubic catheter placement, How to care for a suprapubic catheter
Prescriptions:
New
doxycycline hyclate 100 mg capsule
100 mg PO BID 5 Days Qty: 10 0RF
No Action
atorvastatin [Lipitor] 40 mg Tablet
40 mg PO DAILY
divalproex 500 mg Tablet,Delayed Release (Dr/Ec)
500 mg PO HS
vitamin B complex Tablet
1 tab PO DAILY
folic acid 1 mg Tablet
1 mg PO HS
Eliquis 5 mg Tablet
5 mg PO BID Qty: 0 0RF
amiodarone [Pacerone] 200 mg Tablet
200 mg PO DAILY Qty: 0 0RF
pantoprazole 40 mg Tablet,Delayed Release (Dr/Ec)
40 mg PO DAILY Qty: 0 0RF
magnesium oxide 400 mg magnesium Tablet
400 mg PO DAILY
ferrous sulfate 325 mg (65 mg iron) Tablet
325 mg PO DAILY
levothyroxine 125 mcg Tablet
125 mcg PO DAILY
gabapentin 100 mg Capsule
100 mg PO TID
insulin lispro [Humalog KwikPen Insulin] 100 unit/mL insulin pen
0 unit SC AC
duloxetine 30 mg Capsule,Delayed Release(Dr/Ec)
30 mg PO QPM
lidocaine 5 % Adhesive Patch,Medicated
1 patch TOPICAL DAILY PRN (Reason: left shoulder pain)
Acidophilus 175 mg
1 cap PO DAILY
furosemide 40 mg Tablet
40 mg PO QPM
tramadol 50 mg Tablet
50 mg PO BID PRN (Reason: pain)
tolterodine 2 mg Tablet
2 mg PO HS
cholecalciferol (vitamin D3) [Vitamin D3] 25 mcg (1,000 unit) Capsule
25 mcg PO DAILY
senna-docusate sodium Capsule
1 cap PO QPM
insulin glargine [Lantus Solostar U-100 Insulin] 100 unit/mL (3 mL) Insulin Pen
10 unit SC HS
Referrals:
Gloria Allison CRNP [Non-Admitting Privileges, General] - Follow up in 5-7 days
UNKNOWN - PT DOES,NOT KNOW [Family Provider]
Activity Restrictions/Additional Instructions:
You had new suprapubic catheter placed in by Dr. Macias ( urologist). Please consult urology office for furthur instructions. Hold eliquis until Wednesday afternoon. Apply Neosporin cream on suprapubic incision site. Please f/u with PCP in 5 days.
1. Please schedule a follow up appointment as directed. Call first thing tomorrow morning to make an appointment.
2. If indicated, please take your medications as instructed and indicated on discharge paperwork.
3. If any of your symptoms do not improve, or persist, or become more severe within 6-12 hours, please return to the emergency department for further care.
4. Please return to the emergency department if you develop a headache, neck pain/stiffness, fever greater than 100.4F, chest pain, shortness of breath, persistent nausea, vomiting, slurred speech, difficulty walking, numbness/tingling, weakness,
signs of infection or any other symptoms that are worrisome to you.
Please call [phone] if you have any questions.
Interventions
Interventions:
*Risk Screen - Suicide Last Done: 05/26/25 19:34
*General Assessment Last Done: 05/26/25 19:34
*Neglect/Abuse Screening Last Done: 05/26/25 19:34
*ED- Fall Risk Assessment Last Done: 05/26/25 19:34
*ED COVID-19 Vaccine History Last Done: 05/26/25 19:34
*ED Influenza Vaccine History Last Done: 05/26/25 19:34
*Nursing Disposition Last Done: 05/26/25 22:27
TZ-Riglky-Szkrnclykk Assessment Last Done: 05/26/25 19:34
ED-Female Genitourinary Assessment Last Done: 05/26/25 19:34
Discharge Date and Time
Discharge Date/Time: 05/26/25 22:57
Print Language: COMORAN
[2025-05-26 19:48] LABS: Hematocrit 32.1 % (37.0-47.0); Hemoglobin 10.7 g/dL (12.0-16.0); Mean Corp Hgb Conc. 33.3 g/dL (33.0-37.0); Mean Corpuscular Volume 84.7 fL (81.0-99.0); Nucleated Red Blood Cells % 0 %; Platelet Count 260 10^3/uL (130-400); Red Cell Dist. Width 16.1 % (11.5-14.5)
[2025-05-26 20:00] VITALS: BP 138/45
[2025-05-26 20:39] LABS: ALT (SGPT) 22 U/L (0-35); AST (SGOT) 31 U/L (14-36); Albumin 3.2 g/dl (3.5-5.0); Alkaline Phosphatase 111 U/L (38-126); Blood Urea Nitrogen 27 mg/dl (7-17); Calcium 9.0 mg/dl (8.4-10.2); Carbon Dioxide 31 mmol/L (22-30); Chloride 100 mmol/L (98-107); Glucose 197 mg/dl (70-99); Potassium 4.9 mmol/L (3.5-5.1); Sodium 135 mmol/L (135-145); Total Protein 6.3 g/dl (6.3-8.2); eGFR 38.75
--- NOTE | 2025-05-26 20:42 | CON.MD ---
Consultation - Medical
-
see dictated note
pt bed bound with NGB
recent sp tube placement
pt cut her tube today- it was hurting and she thought it was not supposed to be there
was able to replace- irrigated- clear
reviewed with family
dress sp tube to avoid pt manipulation
short course of antibx
hold eliquis for 48hrs
f/u with dr gonzalez
Consultation
-
Date/Time Consultation Requested: 05/26/25 at 8pm
Date/Time Consultation Performed: 05/26/25 at 8:30pm
Requesting Provider: Dr gallagher
Performing Provider: Dr patel
Reason for Consultation: cut sp tube
[2025-05-26 21:00] VITALS: BP 111/85
[2025-05-26] MEDS: TYLENOL 650 MG PO (21:10)
[2025-05-26 22:00] VITALS: BP 106/53
== END 2025-05-26 22:57 | disposition home or self-care (01) ==
LOC: EMR 19:27
PROVIDERS: EMERGENCY PHYSICIAN Emergency Medicine
DX: T83.89XA Other specified complication of genitourinary prosthetic devices, implants and grafts, initial encounter (principal); Y83.8 Other surgical procedures as the cause of abnormal reaction of the patient, or of later complication, without mention of misadventure at the time of the procedure; I25.10 Atherosclerotic heart disease of native coronary artery without angina pectoris; I48.91 Unspecified atrial fibrillation; I11.0 Hypertensive heart disease with heart failure; I50.9 Heart failure, unspecified; E78.00 Pure hypercholesterolemia, unspecified; E11.9 Type 2 diabetes mellitus without complications; E03.9 Hypothyroidism, unspecified; Z74.01 Bed confinement status; Z79.4 Long term (current) use of insulin; E66.01 Morbid (severe) obesity due to excess calories
CPT/HCPCS: 51705; 99284; 80053; 85025